=== PATIENT | male | born 1970 | race Caucasian/White ===

== ENCOUNTER 2016-10-08 07:05 | Observation (INO) | payer MEDICARE ==
[~2016-10-08] VITALS: Ht 175.3 cm; Wt 154.9 kg
[~2016-10-08 07:05] MED LIST: ACYC400T PO; AMOX500C2 PO; ANTI14DR4 OT; ASP81CT PO; ASP81TEC; CARV3.12; CYCL10TA9 PO; DULO60CA6 PO; FLUO20CA42 PO; FLUO40CA; FLUO40CA12 PO; HYDR-34 PO; HYDR-3454 PO; HYDR-3720 PO; HYDR25CA5 PO; IBP800T PO; IBUP800T26 PO; INSU100I10 SQ; INSU100I17 SQ; INSU100V11 SQ; INSU100V16 SQ; ISM30TCR PO; Invega; LIRA0.6P; LISI1TAB10 PO; LISI20TA PO; LNS30CCR PO; LSNP10T PO; LURA80TA PO; MAGN400C PO; METFOR850T PO; METO25TA PO; MTF500T; MTP25TSR PO; MULT-963 PO; NAPR-243 PO; NTR.4SL; OFLO5DRO6 OT; ONDAN4ODT PO; ONDN4T PO; OXYC-12 PO; OXYC-272 PO; PNT40TEC PO; PRD20T PO; Prednisone PO; RISP4TAB34; RSP2T PO; RT-ALBUINH IH; SMV20T PO; TRAM50TA2 PO
--- OUTSIDE RECORDS SUMMARY | 2016-10-08 07:10 | XMS REPORT | Continuity of Care Document ---
Author Author [facility] Address Unknown Phone Unavailable Care Team Providers Care Drawer In [place] Name Role Phone Self, Paco PCP [phone] Source Comments Some departments are not documenting in the electronic medical record. If you do not see the information that you expected, contact Release of Information in the Health Information Management department at [phone] for further assistance in locating additional records.[facility] Active Allergies and Adverse Reactions No Known Allergies Current Medications Prescription Sig. Disp. Refills Start End Date Status Date PROZAC 40 mg capsule Take 40 mg by mouth Active Daily. metformin (GLUCOPHAGE) Take 500 mg by mouth Active 500 mg tablet Twice Daily With Meals. MULTIVITAMIN PO Take by mouth Daily. Active oxycodone/acetaminophen Take 1-2 Tabs by mouth 80 0 04/30/20 Active (PERCOCET) 5/325 mg Every 4 Hours as needed 08 tablet for Pain. docusate (COLACE) 100 mg Take 1 Cap by mouth Twice 60 0 04/30/20 Active capsule Daily. HOLD FOR DIARRHEA 08 Active Problems Problem Noted Date Back pain 04/30/2008 Social History Tobacco Use Types Packs/Day Years Used Date Former Smoker 1.5 Alcohol Use Drinks/Week oz/Week Comments Yes Quit 13 years ago, pack and a half a day Last Filed Vital Signs Vital Sign Reading Time Taken Blood Pressure 134/67 04/30/2008 2:00 PM CDT Pulse 64 04/30/2008 2:00 PM CDT Temperature 37 C (98.6 F) 04/30/2008 2:00 PM CDT Respiratory Rate - - Height 1.727 m (5' 8") 04/29/2008 5:35 PM CDT Weight 131.543 kg (290 lb) 04/29/2008 5:35 PM CDT Body Mass Index 44.1 04/29/2008 5:35 PM CDT Oxygen Saturation 96% 04/30/2008 2:00 PM CDT Plan of Care Health Maintenance Due Date Last Done Comments Physical (Comprehensive) 1977 Exam Pertussis Vaccine 1981 Tetanus Vaccine 1987 Influenza Vaccine 05/11/2016 Results from Last 3 Months Not on file
[2016-10-08] MEDS ORDERED: RT-ALBUTEROL/IPRATROPIUM 3 ML (DUONEB) VIAL INH ONE (07:30)
[2016-10-08 07:59] LABS: BASOPHILS % (AUTO) 0 % (0-10); EOSINOPHILS # (AUTO) 0.1 10^3/uL (0.0-0.3); EOSINOPHILS % (AUTO) 2 % (0-10); LYMPHOCYTES # (AUTO) 1.5 X 10^3 (1.0-4.0); LYMPHOCYTES % (AUTO) 17 % (12-44); MEAN CORPUSCULAR HEMOGLOBIN 29 PG (25-34); MEAN CORPUSCULAR HGB CONC 34 G/DL (32-36); MEAN CORPUSCULAR VOLUME 85 FL (80-99); MEAN PLATELET VOLUME 10.1 FL (7.4-10.4); MONOCYTES # (AUTO) 0.7 X 10^3 (0.0-1.0); MONOCYTES % (AUTO) 8 % (0-12); NEUTROPHILS # (AUTO) 6.5 X 10^3 (1.8-7.8); NEUTROPHILS % (AUTO) 74 % (42-75); PLATELET COUNT 172 10^3/uL (130-400); RED BLOOD COUNT 5.62 10^6/uL (4.35-5.85); WHITE BLOOD COUNT 8.8 10^3/uL (4.3-11.0)
--- NOTE | 2016-10-08 08:20 | ED Cough/URI ---
General Chief Complaint: Cough/Cold/Flu Symptoms Stated Complaint: COUGH/CHEST PAIN/SOA Nursing Triage Note: PT REPORTS HE WAS SEEN AT URGENT CARE 3 DAYS AGO FOR URI AND COUGH AND WAS PRESCRIBED TESSALON PEARLES, AUGMENTIN, AND PREDNISONE. HE REPORTS COUGH IS NOT GETTING BETTER AND IS NOW NON PRODUCTIVE. HE STATES HE HAS TREVINO AND RIB PAIN FROM COUGHING SO MUCH. Source: patient, family Exam Limitations: no limitations History of Present Illness Time seen by provider: 08:16 Initial Comments The patient is a 46-year-old white male with multiple medical morbidities. He has had a severe cough for for 5 days. Is not clear about whether there is been any fever. Over the last 2 days he has had paroxysms of coughing with some sputum production. These have left his belly sore and him breathless. He reports becoming very breathless after and during one of these spells. He feels wheezy and tight. Timing/Duration: week, getting worse Severity/Quality: severe, productive cough Allergies and Home Medications Allergies Coded Allergies: RAPHAELANo Known Allergies (Verified Allergy, Unknown, 10/10/05) Home Medications 10 MG TAB #30 0 PO UD 50mg daily for 2 days 40mg daily for 2 days 30mg daily for 2 days 20mg daily for 2 days 10mg daily for 2 days then stop Prescribed by: GENOVEVA WEST on 01/17/15 0932 Acyclovir 400 Mg Tablet #35 400 MG PO UD 5 times daily Prescribed by: OSMAN JUÁREZ on 04/12/16 1141 Albuterol Sulfate 1 Puff Puff #1 2 PUFF IH Q4H PRN PRN SHORTNESS OF BREATH MDI Prescribed by: GENOVEVA WEST on 01/17/15 0932 Amoxicillin 500 Mg Capsule #40 1,000 MG PO BID Prescribed by: OSMAN JUÁREZ on 04/12/16 1141 Hctz/Lisinopril 1 Tab Tablet 20-25 MG PO DAILY (Reported) Ibuprofen 800 Mg Tablet 800 MG PO q8h PRN PRN PAIN (Reported) Insulin Aspart 100 Unit/1 Ml Insuln.pen 25 UNIT SQ AC (Reported) CAN NOT LOCATE FILLED Insulin Glargine,Hum.rec.anlog 300 Unit/3 Ml Insuln.pen 80 UNITS SQ BID ( Reported) Metformin Hcl 850 Mg Tablet 850 MG PO AC (Reported) CAN NOT LOCATE FILLED Multivitamin 1 Each Tablet 1 TAB PO DAILY (Reported) Oxycodone Hcl/Acetaminophen 1 Tab Tablet 1 TAB PO Q6H PRN PRN PAIN (Reported) Prednisone 20 Mg Tab #14 40 MG PO DAILY Prescribed by: OSMAN JUÁREZ on 04/12/16 1141 Constitutional: fever malaise EENTM: no symptoms reported Respiratory: see HPI cough dyspnea on exertion phlegm short of breath wheezing Cardiovascular: no symptoms reported Gastrointestinal: no symptoms reported Genitourinary: no symptoms reported Musculoskeletal: no symptoms reported Skin: no symptoms reported Psychiatric/Neurological: No Symptoms Reported Hematologic/Lymphatic: No Symptoms Reported Past Qhcrrex-Ccnihi-Ifbtxd Hx Patient Social History Alcohol Use: Denies Use Recreational Drug Use: No Smoking Status: Never a Smoker Former Smoker/When Quit: Sep 10, 1993 Recent Foreign Travel: No Contact w/Someone Who Travel: No Recent Infectious Disease Expo: No Recent Hopitalizations: No Physical Abuse Screen: No Sexual Abuse: No Immunizations Up To Date Tetanus Booster (TDap): Unknown PED Vaccines UTD: No Seasonal Allergies Seasonal Allergies: No Surgeries HX Surgeries: Yes (PANCREAS STENT-HAS BEEN REMOVED) Surgeries: Gallbladder, Orthopedic, Tonsillectomy Respiratory Hx Respiratory Disorders: No Cardiovascular Hx Cardiac Disorders: Yes Cardiac Disorders: High Cholesterol, Hypertension Neurological Hx Neurological Disorders: No Reproductive System Hx Reproductive Disorders: No Genitourinary Hx Genitourinary Disorders: No Gastrointestinal Hx Gastrointestinal Disorders: Yes Gastrointestinal Disorders: Gall Bladder Disease Musculoskeletal Hx Musculoskeletal Disorders: Yes (BOTH KNEES) Musculoskeletal Disorders: Arthritis Endocrine Hx Endocrine Disorders: Yes Endocrine Disorders: Diabetes, Insulin dep HEENT HX ENT Disorders: No Loss of Vision: Denies Cancer Hx Cancer: No Psychosocial Hx Psychiatric Problems: Yes Behavioral Health Disorders: Schizophrenia, Depression Integumentary HX Skin/Integumentary Disorder: No Blood Transfusions Hx Blood Disorders: No Family Medical History Significant Family History: No Pertinent Family Hx Family Medial History: Alzheimer's disease 19 MOTHER Arthritis 19 FATHER Cardiovascular disease 19 FATHER Dementia 19 MOTHER Hypertension 19 FATHER Myocardial infarction G8 BROTHER Parkinson's disease 19 MOTHER Prostate cancer 19 FATHER No Family History of: AIDS Abdominal aortic aneurysm [place]'s disease Alcoholism Aphasia Asthma Cancer of mouth Cataracts Colon cancer Completed stroke Congenital disease Congenital heart disease Coronary thrombosis Cystic fibrosis Deafness or hearing loss Diabetes mellitus Drug abuse Dysphasia Fibrocystic disease of breast Gastroenteritis Glaucoma Headache disorder Hypercholesterolemia Infertility Kidney disease Neoplasm Not obtainable due to adoption Osteoporosis Psychosocial problem Respiratory disorder Seizure disorder Severe allergy Thyroid disease Tuberculosis Visual disorder Physical Exam Vital Signs Vital Sign - Last 12Hours 10/08/16 08:31 O2 Flow Rate 2 Capillary Refill : Less Than 3 Seconds General Appearance: moderate distress Eyes: Bilateral Eye Normal Inspection HEENT: pharyngeal erythema Neck: full range of motion Respiratory: decreased breath sounds wheezing (bilateral bases) Cardiovascular: normal peripheral pulses regular rate, rhythm no edema no gallop no JVD no murmur Gastrointestinal: other (belly is huge) Extremities: pedal edema Neurologic/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7 G/DL Lymphocytes # (Auto) 1.5 1.0-4.0 X 10^3 Lymphocytes (%) (Auto) 17 12-44 % Mean Corpuscular Hemoglobin 29 25-34 PG Mean Corpuscular Hemoglobin Concent 34 32-36 G/DL Mean Corpuscular Volume 85 80-99 FL Mean Platelet Volume 10.1 7.4-10.4 FL Monocytes # (Auto) 0.7 0.0-1.0 X 10^3 Monocytes (%) (Auto) 8 0-12 % Neutrophils # (Auto) 6.5 1.8-7.8 X 10^3 Neutrophils (%) (Auto) 74 42-75 % Platelet Count 172 130-400 10^3/uL Red Blood Count 5.62 4.35-5.85 10^6/uL Red Cell Distribution Width 14.0 10.0-14.5 % White Blood Count 8.8 4.3-11.0 10^3/uL Micro Results Microbiology 10/08/16 Influenza Types A,B Antigen (BECKIE) - Final, Complete My Orders Orders-LEA ALDANA MD Albuterol/Ipra Inhalation Soln (Duoneb I (10/08/16 07:30) Cbc With Automated Diff (10/08/16 07:19) Chest 1 View, Ap/Pa Only (10/08/16 07:19) Svn Sm Volume Nebulizer Rt-Rfs (10/08/16 07:19) Influenza A And B Antigens (10/08/16 07:44) Saline Lock/Iv-Start (10/08/16 07:55) Rt Request For Service (10/08/16 08:14) Methylprednisolone Sod Succ (Solu-Medrol (10/08/16 08:30) Albuterol Pre-Mix Nebs (Rt) (Proventil P (10/08/16 08:23) Medications Given in ED Current Medications Medications Dose Ordered Sig/Shadia Route Start Time Stop Time Status Last Admin Dose Admin Albuterol Sulfate 2.5 mg STK-MED ONCE .ROUTE 10/08/16 08:23 10/08/16 08:24 DC 10/08/16 08:29 10 MG Albuterol/ Ipratropium 3 ml ONCE ONCE INH 10/08/16 07:30 10/08/16 07:31 DC 10/08/16 07:30 3 ML Methylprednisolone Sodium Succinate 125 mg ONCE ONCE IVP 10/08/16 08:30 10/08/16 08:31 DC 10/08/16 08:43 125 MG Vital Signs/I&O Vital Sign - Last 12Hours 10/08/16 10/08/16 10/08/16 10/08/16 07:17 07:17 07:39 08:31 Temp 99.0 Pulse 91 Resp 20 B/P 173/122 Pulse Ox 92 90 95 O2 Delivery Room Air Room Air Room Air Nasal Cannula O2 Flow Rate 2 Blood Pressure Mean: 139 Departure Communication Progress Notes 0935 the patient reports that he feels slightly better however on auscultation there is still continued wheezing throughout and a prolonged expiratory phase. [address] Gonzales the patient will be admitted for continuing pulmonary toilet and medications. Cosleep Impression Impression: Primary Impression: URI/bronchospasm Disposition: ADMITTED INPATIENT Condition: Stable/Unchanged Decision to Admit/Date: Oct 08, 2016 Time/Decision to Admit Time: 09:43 Departure-Patient Inst. Referrals: NO,LOCAL PHYSICIAN (PCP/Family) Primary Care Physician LEA ALDANA MD Oct 08, 2016 08:20
[2016-10-08] MEDS ORDERED: RT-ALBUTEROL SULF 2.5 MG/3 ML PRE-MIX VIAL ONE (08:23)
[2016-10-08] MEDS ORDERED: RT-ALBUTEROL SULF 2.5 MG/3 ML PRE-MIX VIAL INH SCH (08:30)
[2016-10-08] MEDS ORDERED: RT-ALBUTEROL SULF 2.5 MG/3 ML PRE-MIX VIAL INH ONE (08:30)
[2016-10-08] MEDS ORDERED: methylPREDNISolone 125 MG (Solu-MEDROL) VIAL IVP ONE (08:30)
--- NOTE | 2016-10-08 08:33 | Diagnostic Imaging Report ---
INDICATION: Cough, chest pain, shortness of air. TECHNIQUE: Single view chest 7:59 AM. CORRELATION STUDY: 04/12/2016 FINDINGS: Heart size enlarged. Vasculature slightly prominent. Lungs overall relatively stable and clear. IMPRESSION: 1. Stable chest. Cardiac enlargement without failure. Dictated by: Dictated on workstation # [id number]
[2016-10-08] MEDS ORDERED: CATHETER FLUSH 10 ML SYR IV PRN (10:45)
[2016-10-08] MEDS: cefTRIAXone 1 GM/NS 50 ML IVPB IV SCH ×2 (10:47)
[2016-10-08] MEDS: NS IV 1000 ML 1,000 ML IV SCH ×2 (10:48→20:30)
[2016-10-08] MEDS ORDERED: AMOX1TAB11 PO (10:59)
[2016-10-08] MEDS ORDERED: PRD20T PO (10:59)
[2016-10-08] MEDS ORDERED: BENZ200C51 PO (10:59)
[2016-10-08] MEDS ORDERED: FLU TRIvalent (5 YOA+) 2016-17 (AFLURIA) 0.5 ML IM ONE (11:45)
[2016-10-08] MEDS ORDERED: RT-ALBUTEROL/IPRATROPIUM 3 ML (DUONEB) VIAL INH NR (11:45)
[2016-10-08] MEDS ORDERED: oxyCODONE/APAP 10/325MG (PERCOCET 10) TABLET PO PRN (12:15)
[2016-10-08] MEDS ORDERED: inSUlin DETERMIR 1 UNIT/0.01 ML (LEVEMIR) CHARGE PER UNIT SQ NR (12:15)
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
[2016-10-08] MEDS: RT-ALBUTEROL/IPRATROPIUM 3 ML (DUONEB) VIAL INH SCH ×3 (14:26→21:49)
[2016-10-08] MEDS: methylPREDNISolone 125 MG (Solu-MEDROL) VIAL IVP SCH ×2 (14:48→20:29)
[2016-10-08] MEDS: ENOXAPARIN 40 MG/0.4 ML (LOVENOX) SYR SC SCH (14:50)
[2016-10-08] MEDS ORDERED: methylPREDNISolone 125 MG (Solu-MEDROL) VIAL IVP SCH (15:00)
[2016-10-08] MEDS ORDERED: LISI40TA PO (15:05)
[2016-10-08] MEDS ORDERED: FURO-124 PO ×2 (15:05)
[2016-10-08] MEDS ORDERED: ASPI-999 PO (15:05)
[2016-10-08] MEDS ORDERED: AMLO5TAB2 PO (15:05)
[2016-10-08] MEDS ORDERED: POTA10TA10 PO (15:09)
[2016-10-08] MEDS: inSUlin ASPART (NovoLOG) 1 UNIT/0.01 ML (CHARGE PER UNIT) SC SCH ×3 (16:16→21:06)
[2016-10-08 16:41] VITALS: BP 152/79
[2016-10-08] MEDS ORDERED: BENZONATATE 100 MG (TESSALON) CAPSULE PO PRN (16:45)
[2016-10-08] MEDS: RT-BUDESONIDE NEBS 0.5 MG/2ML (PULMICORT) AMP INH SCH (18:06)
[2016-10-08 19:48] VITALS: BP 153/83
[2016-10-08] MEDS ORDERED: inSUlin DETERMIR 1 UNIT/0.01 ML (LEVEMIR) CHARGE PER UNIT SQ SCH (21:00)
[2016-10-08 23:38] VITALS: BP 168/77
[2016-10-09] MEDS: RT-ALBUTEROL/IPRATROPIUM 3 ML (DUONEB) VIAL INH SCH (02:42)
[2016-10-09] MEDS: methylPREDNISolone 125 MG (Solu-MEDROL) VIAL IVP SCH (03:33)
[2016-10-09 03:56] VITALS: BP 137/75
[2016-10-09] MEDS: inSUlin ASPART (NovoLOG) 1 UNIT/0.01 ML (CHARGE PER UNIT) SC SCH ×4 (06:26→12:07)
[2016-10-09] MEDS: NS IV 1000 ML 1,000 ML IV SCH (06:27)
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
[2016-10-09] MEDS ORDERED: MULTIVIT W/MINERALS TAB (THERAGRAN M) PO SCH (07:00)
[2016-10-09] MEDS ORDERED: cefTRIAXone 1 GM (ROCEPHIN) VIAL ONE (07:34)
[2016-10-09] MEDS ORDERED: NORMAL SALINE (BAXTER MINI) 50 ML IV ONE (07:34)
[2016-10-09 08:00] VITALS: BP 161/69
[2016-10-09] MEDS ORDERED: predniSONE 10 MG TAB PO SCH (09:00)
[2016-10-09] MEDS ORDERED: RT-ALBUTEROL/IPRATROPIUM 3 ML (DUONEB) VIAL INH SCH (09:00)
[2016-10-09] MEDS ORDERED: amLODIPine 5 MG (NORVASC) TAB PO SCH (09:00)
[2016-10-09] MEDS ORDERED: NON-FORMULARY MEDICATION 1 EA EA (Multivitamin (Multi-Vitamin Daily) 1 TAB) PO SCH (09:00)
[2016-10-09] MEDS: cefTRIAXone 1 GM/NS 50 ML IVPB IV SCH ×2 (09:13)
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
[2016-10-09] MEDS ORDERED: PRED10TA22 PO (09:15)
--- NOTE | 2016-10-09 09:16 | Discharge Instructions ---
Discharge Instructions Discharge Medications New, Converted or Re-Newed RX: Transmitted to Pharmacy New Medications: Prednisone (Prednisone) 10 Mg Tab.ds.pk 10 MG PO DAILY Take 6 tabs(60mg)daily,decrease by 1 tab(10mg)every other day. # 42 PKG Continued Medications: Albuterol Sulfate (Ventolin Hfa) 1 Puff Puff 2 PUFF IH Q4H MDI PRN SHORTNESS OF BREATH #1 Ref 0 PUFF Amlodipine Besylate (Amlodipine Besylate) 5 Mg Tablet 5 MG PO DAILY TAB Amoxicillin/Potassium Clav (Amox Tr-K Clv 500-125 mg Tab) 1 Each Tablet 1 EACH PO Q12H TAKE FOR 10 DAYS, STARTED 10/06/16 TAB Aspirin (Aspirin) 81 Mg Tab.chew 81 MG PO DAILY TAB Benzonatate (Benzonatate) 200 Mg Capsule 200 MG PO TID CAP Furosemide (Lasix) 40 Mg Tablet 40 MG PO DAILY TAB Furosemide (Lasix) 40 Mg Tablet 20 MG PO DAILY 1600 TAB Ibuprofen (Ibuprofen) 800 Mg Tablet 800 MG PO q8h PRN PAIN TAB Insulin Aspart (Novolog) 100 Unit/1 Ml Insuln.pen 25 UNIT SQ AC Insulin Glargine,Hum.rec.anlog (Lantus Solostar) 300 Unit/3 Ml Insuln.pen 100 UNITS SQ BID Lisinopril (Lisinopril) 40 Mg Tablet 40 MG PO DAILY TAB Metformin Hcl (Metformin 850 Mg) 850 Mg Tablet 850 MG PO AC CAN NOT LOCATE FILLED Multivitamin (Multi-Vitamin Daily) 1 Each Tablet 1 TAB PO DAILY Potassium Chloride (Potassium Chloride) 10 Meq Tablet.er 10 MEQ PO DAILY TAB Discontinued Medications: Prednisone (Prednisone) 20 Mg Tab 20 MG PO TAKE 3 TABS DAILY FOR 3 DAYS THEN 2 TABS DAILY FOR 3 DAYS THEN 1 TABE DAILY FOR 3 DAYS, WAS STARTED ON 10/05/16 TAB Patient Instructions Goal/Follow Up Appt: Dr Geller in [place], [place] this week Dr Snow for sleep study Activity & Diet Discharge Diet: ADA Diet Activity as Tolerated: Yes ROBIN ROGEL DO Oct 09, 2016 09:16
[2016-10-09] MEDS: RT-BUDESONIDE NEBS 0.5 MG/2ML (PULMICORT) AMP INH SCH (09:58)
[2016-10-09] MEDS: ENOXAPARIN 40 MG/0.4 ML (LOVENOX) SYR SC SCH (11:52)
[2016-10-09 13:00] VITALS: BP 161/69
== END 2016-10-09 09:15 | disposition home or self-care (01) ==
LOC: EDUNIT# 07:05 → ER 07:07 → UNDOADMOB 09:45 → 4TH 09:45 → UNDODISOB 10-09 13:00
PROVIDERS: ADMIT Internal Medicine; ATTEND Internal Medicine
DX: J45.902 Unspecified asthma with status asthmaticus (principal); J44.1 Chronic obstructive pulmonary disease with (acute) exacerbation; G47.33 Obstructive sleep apnea (adult) (pediatric); E66.01 Morbid (severe) obesity due to excess calories; I10 Essential (primary) hypertension; E78.5 Hyperlipidemia, unspecified; F20.9 Schizophrenia, unspecified; E11.65 Type 2 diabetes mellitus with hyperglycemia; I25.10 Atherosclerotic heart disease of native coronary artery without angina pectoris; K21.9 Gastro-esophageal reflux disease without esophagitis; Z79.4 Long term (current) use of insulin; Z87.891 Personal history of nicotine dependence
CPT/HCPCS: 36415; 71010; 82962; 83036; 85025; 87804; 94640; 94664; 94760; 94761; 96374; G0378

== ENCOUNTER → 2016-11-01 | Outpatient (CLI) | payer MEDICARE ==
[~2016-11-01] MED LIST changes: +AMLO5TAB2 PO; +AMOX1TAB11 PO; +ASPI-999 PO; +BENZ200C51 PO; +FURO-124 PO; +LISI40TA PO; +POTA10TA10 PO; +PRED10TA22 PO
--- OUTSIDE RECORDS SUMMARY | 2016-11-01 15:21 | XMS REPORT | Continuity of Care Document ---
Author Author [facility] Organization [facility] Address Unknown Phone Unavailable Care Team Providers Care Home Theater Specialist Name Role Phone Self, Paco PCP [phone] Source Comments Some departments are not documenting in the electronic medical record. If you do not see the information that you expected, contact Release of Information in the Health Information Management department at [phone] for further assistance in locating additional records.[facility] Active Allergies and Adverse Reactions No Known [...]
== END ==
LOC: RT 15:18
PROVIDERS: ATTEND Nurse Practitioner Family
DX: J45.909 Unspecified asthma, uncomplicated (principal); R06.02 Shortness of breath
CPT/HCPCS: 94060; 94729

== ENCOUNTER 2016-11-03 19:50 | Outpatient (CLI) | payer MEDICARE ==
--- OUTSIDE RECORDS SUMMARY | 2016-11-03 20:01 | XMS REPORT | Continuity of Care Document ---
Author Author [facility] Organization [facility] Address Unknown Phone Unavailable Care Team Providers Care Developmental Behavioral Physician Name Role Phone Self, Paco PCP [phone] Source Comments Some departments are not documenting in the electronic medical record. If you do not see the information that you expected, contact Release of Information in the Health Information Management department at [phone] for further assistance in locating additional records.[facility] Active Allergies and Adverse Reactions No Known [...]
== END 2016-11-04 06:25 | disposition home or self-care (01) ==
LOC: SLEEP 19:50
PROVIDERS: ATTEND Nurse Practitioner Family
DX: G47.34 Idiopathic sleep related nonobstructive alveolar hypoventilation (principal); G47.33 Obstructive sleep apnea (adult) (pediatric)
CPT/HCPCS: 95811

== ENCOUNTER 2017-09-24 13:21 | Emergency (ER) | payer MEDICARE, MEDICAID ==
[~2017-09-24] VITALS: Ht 177.8 cm; Wt 159.2 kg
--- OUTSIDE RECORDS SUMMARY | 2017-09-24 13:25 | XMS REPORT | Clinical Summary ---
Author Author [facility] Organization [facility] Address Unknown Phone Unavailable Care Team Providers Care [place] Hydraulic Press Operator Name Role Phone PCP Unavailable Source Comments Some departments are not documenting in the electronic medical record. If you do not see the information that you expected, contact Release of Information in the Health Information Management department at [phone] for further assistance in locating additional records.[facility] Allergies No Known Allergies Current Medications Prescription Sig. [...] Problems Problem Noted Date Back pain 04/30/2008 Family History Medical History Relation Name Comments Hypertension Father Diabetes Maternal Grandmother Cancer Paternal Grandmother Relation Name Status Comments Father Maternal Grandmother Paternal Grandmother Social History Tobacco Use Types Packs/Day Years Used Date Former Smoker 1.5 Alcohol Use Drinks/Week oz/Week Comments Yes Quit 13 years ago, pack and a half a day Sex Assigned at Date Recorded Not on file Last Filed Vital Signs Vital Sign Reading Time Taken Blood Pressure 134/67 04/30/2008 2:00 PM CDT Pulse 64 04/30/2008 2:00 PM CDT Temperature 37 C (98.6 F) 04/30/2008 2:00 PM CDT Respiratory Rate - - Oxygen Saturation 96% 04/30/2008 2:00 PM CDT Inhaled Oxygen - - Concentration Weight 131.5 kg (290 lb) 04/29/2008 5:35 PM CDT Height 172.7 cm (5' 8") 04/29/2008 5:35 PM CDT Body Mass Index 44.09 04/29/2008 5:35 PM CDT Plan of Treatment Health Maintenance Due Date Last Done Comments PHYSICAL (COMPREHENSIVE) 1977 EXAM PERTUSSIS VACCINE 1981 TETANUS VACCINE 1987 INFLUENZA VACCINE 04/10/2017 Results Not on filefrom Last 3 Months
--- OUTSIDE RECORDS SUMMARY | 2017-09-24 13:27 | XMS REPORT | Continuity of Care Document ---
Author Author [facility] Address Unknown Phone Unavailable Allergies Active Description Code Type Severity Reaction Onset Reported/Identified Relationship to Patient Clinical Status Yes NKANo Known Allergies NKA Miscellaneous Allergy Unknown N/A 10/10/2005 Yes metformin Drug Allergy 06/14/2010 Yes metformin Drug Allergy N/A N/A 06/14/2010 Medications There is no data. Problems Date Dx Coded Attending Type Code Diagnosis Diagnosed By 02/02/2010 Ot 250.00 02/02/2010 Ot 278.01 02/02/2010 Ot 300.4 02/02/2010 Ot 327.23 02/02/2010 Ot 401.0 02/02/2010 Ot 577.1 02/02/2010 Ot 786.59 02/02/2010 Ot V15.81 02/02/2010 Ot V85.4 02/04/2010 Ot 250.00 02/04/2010 Ot 272.4 02/04/2010 Ot 278.01 02/04/2010 Ot 401.9 02/04/2010 Ot 786.50 02/04/2010 Ot V58.66 02/04/2010 Ot V58.69 05/03/2010 RIOS NUÑEZ MD 250.00 DIABETES MELLITUS TYPE 2 05/03/2010 JOAQUIN QURESHI, RIOS 401.9 HYPERTENSION, UNSPECIFIED ESSENTIAL 05/03/2010 RIOS NUÑEZ MD 250.00 DIABETES MELLITUS TYPE 2 05/03/2010 RIOS NUÑEZ MD 401.9 HYPERTENSION, UNSPECIFIED ESSENTIAL 05/03/2010 RIOS NUÑEZ MD 250.00 DIABETES MELLITUS TYPE 2 05/03/2010 RIOS NÑUEZ MD 401.9 HYPERTENSION, UNSPECIFIED ESSENTIAL 05/03/2010 250.00 DIABETES MELLITUS TYPE 2 05/03/2010 401.9 HYPERTENSION, UNSPECIFIED ESSENTIAL 05/03/2010 250.00 DIABETES MELLITUS TYPE 2 05/03/2010 401.9 HYPERTENSION, UNSPECIFIED ESSENTIAL 05/03/2010 250.00 DIABETES MELLITUS TYPE 2 05/03/2010 401.9 HYPERTENSION, UNSPECIFIED ESSENTIAL 05/03/2010 250.00 DIABETES MELLITUS TYPE 2 05/03/2010 401.9 HYPERTENSION, UNSPECIFIED ESSENTIAL 05/03/2010 250.00 DIABETES MELLITUS TYPE 2 05/03/2010 401.9 HYPERTENSION, UNSPECIFIED ESSENTIAL 05/03/2010 250.00 DIABETES MELLITUS TYPE 2 05/03/2010 401.9 HYPERTENSION, UNSPECIFIED ESSENTIAL 05/03/2010 250.00 DIABETES MELLITUS TYPE 2 05/03/2010 401.9 HYPERTENSION, UNSPECIFIED ESSENTIAL 05/03/2010 250.00 DIABETES MELLITUS TYPE 2 05/03/2010 401.9 HYPERTENSION, UNSPECIFIED ESSENTIAL 05/03/2010 250.00 DIABETES MELLITUS TYPE 2 05/03/2010 401.9 HYPERTENSION, UNSPECIFIED ESSENTIAL 05/03/2010 250.00 DIABETES MELLITUS TYPE 2 05/03/2010 401.9 HYPERTENSION, UNSPECIFIED ESSENTIAL 05/03/2010 250.00 DIABETES MELLITUS TYPE 2 05/03/2010 401.9 HYPERTENSION, UNSPECIFIED ESSENTIAL 05/03/2010 SIVAKUMAR LAUREN DO 250.00 DIABETES MELLITUS TYPE 2 05/03/2010 SIVAKUMAR LAUREN DO 401.9 HYPERTENSION, UNSPECIFIED ESSENTIAL 05/23/2010 RIOS NUÑEZ MD 789.00 ABDOMINAL PAIN UNSPECIFIED SITE 05/23/2010 RIOS NUÑEZ MD 789.00 ABDOMINAL PAIN UNSPECIFIED SITE 05/23/2010 RIOS NUÑEZ MD 789.00 ABDOMINAL PAIN UNSPECIFIED SITE 05/23/2010 789.00 ABDOMINAL PAIN UNSPECIFIED SITE 05/23/2010 789.00 ABDOMINAL PAIN UNSPECIFIED SITE 05/23/2010 789.00 ABDOMINAL PAIN UNSPECIFIED SITE 05/23/2010 789.00 ABDOMINAL PAIN UNSPECIFIED SITE 05/23/2010 789.00 ABDOMINAL PAIN UNSPECIFIED SITE 05/23/2010 789.00 ABDOMINAL PAIN UNSPECIFIED SITE 05/23/2010 789.00 ABDOMINAL PAIN UNSPECIFIED SITE 05/23/2010 789.00 ABDOMINAL PAIN UNSPECIFIED SITE 05/23/2010 789.00 ABDOMINAL PAIN UNSPECIFIED SITE 05/23/2010 789.00 ABDOMINAL PAIN UNSPECIFIED SITE 05/23/2010 789.00 ABDOMINAL PAIN UNSPECIFIED SITE 05/23/2010 SIVAKUMAR LAUREN DO 789.00 ABDOMINAL PAIN UNSPECIFIED SITE 06/14/2010 RIOS UNÑEZ MD 250.02 DIABETES II UNCONTROLLED 06/14/2010 RIOS NUÑEZ MD 716.90 ARTHRITIS/ ARTHROPATHY, UNSPECIFIED 06/14/2010 JOAQUIN QURESHI, RIOS 250.02 DIABETES II UNCONTROLLED 06/14/2010 JOAQUIN QURESHI, RIOS 716.90 ARTHRITIS/ ARTHROPATHY, UNSPECIFIED 06/14/2010 JOAQUIN QURESHI, RIOS 250.02 DIABETES II UNCONTROLLED 06/14/2010 JOAQUIN QURESHI, RIOS 716.90 ARTHRITIS/ ARTHROPATHY, UNSPECIFIED 06/14/2010 250.02 DIABETES II UNCONTROLLED 06/14/2010 716.90 ARTHRITIS/ ARTHROPATHY, UNSPECIFIED 06/14/2010 250.02 DIABETES II UNCONTROLLED 06/14/2010 716.90 ARTHRITIS/ ARTHROPATHY, UNSPECIFIED 06/14/2010 250.02 DIABETES II UNCONTROLLED 06/14/2010 716.90 ARTHRITIS/ ARTHROPATHY, UNSPECIFIED 06/14/2010 250.02 DIABETES II UNCONTROLLED 06/14/2010 716.90 ARTHRITIS/ ARTHROPATHY, UNSPECIFIED 06/14/2010 250.02 DIABETES II UNCONTROLLED 06/14/2010 716.90 ARTHRITIS/ ARTHROPATHY, UNSPECIFIED 06/14/2010 250.02 DIABETES II UNCONTROLLED 06/14/2010 716.90 ARTHRITIS/ ARTHROPATHY, UNSPECIFIED 06/14/2010 250.02 DIABETES II UNCONTROLLED 06/14/2010 716.90 ARTHRITIS/ ARTHROPATHY, UNSPECIFIED 06/14/2010 250.02 DIABETES II UNCONTROLLED 06/14/2010 716.90 ARTHRITIS/ ARTHROPATHY, UNSPECIFIED 06/14/2010 250.02 DIABETES II UNCONTROLLED 06/14/2010 716.90 ARTHRITIS/ ARTHROPATHY, UNSPECIFIED 06/14/2010 250.02 DIABETES II UNCONTROLLED 06/14/2010 716.90 ARTHRITIS/ ARTHROPATHY, UNSPECIFIED 06/14/2010 250.02 DIABETES II UNCONTROLLED 06/14/2010 716.90 ARTHRITIS/ ARTHROPATHY, UNSPECIFIED 06/14/2010 SIVAKUMAR LAUREN DO 250.02 DIABETES II UNCONTROLLED 06/14/2010 LAUREN SIVAKUMAR DAVIS 716.90 ARTHRITIS/ ARTHROPATHY, UNSPECIFIED 06/16/2010 Ot 836.2 06/16/2010 Ot 959.7 06/16/2010 Ot E000.8 06/16/2010 Ot E849.0 06/16/2010 Ot E885.9 11/29/2010 RIOS NUÑEZ MD 466.0 ACUTE BRONCHITIS 11/29/2010 RIOS NUÑEZ MD 790.6 OTHER ABNORMAL BLOOD CHEMISTRY 11/29/2010 RIOS NUÑEZ MD 466.0 ACUTE BRONCHITIS 11/29/2010 RIOS NUÑEZ MD 790.6 OTHER ABNORMAL BLOOD CHEMISTRY 11/29/2010 RIOS NUÑEZ MD 466.0 ACUTE BRONCHITIS 11/29/2010 RIOS NUÑEZ MD 790.6 OTHER ABNORMAL BLOOD CHEMISTRY 11/29/2010 466.0 ACUTE BRONCHITIS 11/29/2010 790.6 OTHER ABNORMAL BLOOD CHEMISTRY 11/29/2010 466.0 ACUTE BRONCHITIS 11/29/2010 790.6 OTHER ABNORMAL BLOOD CHEMISTRY 11/29/2010 466.0 ACUTE BRONCHITIS 11/29/2010 790.6 OTHER ABNORMAL BLOOD CHEMISTRY 11/29/2010 466.0 ACUTE BRONCHITIS 11/29/2010 790.6 OTHER ABNORMAL BLOOD CHEMISTRY 11/29/2010 466.0 ACUTE BRONCHITIS 11/29/2010 790.6 OTHER ABNORMAL BLOOD CHEMISTRY 11/29/2010 466.0 ACUTE BRONCHITIS 11/29/2010 790.6 OTHER ABNORMAL BLOOD CHEMISTRY 11/29/2010 466.0 ACUTE BRONCHITIS 11/29/2010 790.6 OTHER ABNORMAL BLOOD CHEMISTRY 11/29/2010 466.0 ACUTE BRONCHITIS 11/29/2010 790.6 OTHER ABNORMAL BLOOD CHEMISTRY 11/29/2010 466.0 ACUTE BRONCHITIS 11/29/2010 790.6 OTHER ABNORMAL BLOOD CHEMISTRY 11/29/2010 466.0 ACUTE BRONCHITIS 11/29/2010 790.6 OTHER ABNORMAL BLOOD CHEMISTRY 11/29/2010 466.0 ACUTE BRONCHITIS 11/29/2010 790.6 OTHER ABNORMAL BLOOD CHEMISTRY 11/29/2010 SIVAKUMAR LAUREN DO K 466.0 ACUTE BRONCHITIS 11/29/2010 SIVAKUMAR LAUREN DO K 790.6 OTHER ABNORMAL BLOOD CHEMISTRY 02/16/2011 Ot 577.0 ACUTE PANCREATITIS 02/16/2011 Ot 789.01 ABDOMINAL PAIN, RIGHT UPPER QUADRANT 06/07/2011 Ot 250.00 DIAB DAILY WO COMPL, TYPE II OR UNSPEC TY 06/07/2011 Ot 577.0 ACUTE PANCREATITIS 06/07/2011 Ot 789.01 ABDOMINAL PAIN, RIGHT UPPER QUADRANT 06/07/2011 Ot V58.67 LONG-TERM ( 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 08/21/2011 Ot 780.2 SYNCOPE AND COLLAPSE 08/21/2011 Ot 789.00 ABDOMINAL PAIN, UNSPECIFIED SITE 02/24/2012 Ot 250.00 DIAB DAILY WO COMPL, TYPE II OR UNSPEC TY 02/24/2012 Ot 305.93 DRUG ABUSE NEC-IN REMISS 02/24/2012 Ot 311 DEPRESSIVE DISORDER NEC 02/24/2012 Ot 397.0 TRICUSPID VALVE DISEASE 02/24/2012 Ot 424.0 MITRAL VALVE DISORDER 02/24/2012 Ot 733.6 TIETZE'S DISEASE 02/24/2012 Ot 786.59 CHEST PAIN NEC 02/24/2012 Ot V15.82 HISTORY OF TOBACCO USE 02/24/2012 Ot V17.49 FAMILY HISTORY OF OTHER CARDIOVASCULAR D 02/24/2012 Ot V58.67 LONG-TERM ( 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 02/24/2012 Ot V58.69 OTH MED,LT, CURRENT USE 03/17/2012 Ot 250.92 DIAB W UNSPEC COMPL, TYPE II OR UNSPEC T 03/17/2012 Ot 305.00 ALCOHOL ABUSE-UNSPEC 03/17/2012 Ot 311 DEPRESSIVE DISORDER NEC 03/17/2012 Ot 401.9 HYPERTENSION NOS 03/17/2012 Ot V15.81 HX OF PAST NONCOMPLIANCE 05/15/2012 Ot 250.02 DIAB DAILY WO COMPL, TYPE II OR UNSPEC TY 05/15/2012 Ot 401.9 HYPERTENSION NOS 05/15/2012 Ot 786.50 CHEST PAIN NOS 06/07/2012 Ot 250.00 DIAB DAILY WO COMPL, TYPE II OR UNSPEC TY 06/07/2012 Ot 278.01 MORBID OBESITY 06/07/2012 Ot 401.9 HYPERTENSION NOS 06/07/2012 Ot 560.1 PARALYTIC ILEUS 06/07/2012 Ot 577.1 CHRONIC PANCREATITIS 06/07/2012 Ot V58.67 LONG-TERM ( 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 06/07/2012 Ot V85.43 BODY MASS INDEX 50.0-59.9, ADULT 06/10/2012 Ot 275.2 DIS MAGNESIUM METABOLISM 06/10/2012 Ot 729.82 CRAMP IN LIMB 06/10/2012 Ot 789.02 ABDOMINAL PAIN, LEFT UPPER QUADRANT 06/25/2012 Ot 250.00 DIAB DAILY WO COMPL, TYPE II OR UNSPEC TY 06/25/2012 Ot 311 DEPRESSIVE DISORDER NEC 06/25/2012 Ot 401.9 HYPERTENSION NOS 06/25/2012 Ot 965.8 POIS-ANALGES/ ANTIPYR NEC 06/25/2012 Ot E950.0 SUICIDE- ANALGESICS 06/25/2012 Ot V12.79 PERSONAL HISTORY OTH SPEC DIGESTIVE SYST 06/25/2012 Ot V58.67 LONG-TERM ( 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 09/12/2012 Ot 787.03 VOMITING ALONE 09/12/2012 Ot 789.06 ABDOMINAL PAIN, EPIGASTRIC 10/15/2012 JOAQUIN QURESHI, RIOS 250.92 DIABETES WITH UNSPECIFIED COMPLICATION TYPE II OR UNSPECIFIED TYPE UNCONTROLLED 10/15/2012 RIOS NUÑEZ MD 278.01 MORBID OBESITY 10/15/2012 RIOS NUÑEZ MD 295.90 UNSPECIFIED TYPE SCHIZOPHRENIA UNSPECIFIED STATE 10/15/2012 RIOS NUÑEZ MD 577.0 ACUTE PANCREATITIS 10/15/2012 JOAQUIN QURESHI, RIOS 250.92 DIABETES WITH UNSPECIFIED COMPLICATION TYPE II OR UNSPECIFIED TYPE UNCONTROLLED 10/15/2012 RIOS NUÑEZ MD 278.01 MORBID OBESITY 10/15/2012 RIOS NUÑEZ MD 295.90 UNSPECIFIED TYPE SCHIZOPHRENIA UNSPECIFIED STATE 10/15/2012 RIOS NUÑEZ MD 577.0 ACUTE PANCREATITIS 10/15/2012 RIOS NUÑEZ MD 250.92 DIABETES WITH UNSPECIFIED COMPLICATION TYPE II OR UNSPECIFIED TYPE UNCONTROLLED 10/15/2012 RIOS NUÑEZ MD 278.01 MORBID OBESITY 10/15/2012 RIOS NUÑEZ MD 295.90 UNSPECIFIED TYPE SCHIZOPHRENIA UNSPECIFIED STATE 10/15/2012 RIOS NUÑEZ MD 577.0 ACUTE PANCREATITIS 10/15/2012 250.92 DIABETES WITH UNSPECIFIED COMPLICATION TYPE II OR UNSPECIFIED TYPE UNCONTROLLED 10/15/2012 278.01 MORBID OBESITY 10/15/2012 295.90 UNSPECIFIED TYPE SCHIZOPHRENIA UNSPECIFIED STATE 10/15/2012 577.0 ACUTE PANCREATITIS 10/15/2012 250.92 DIABETES WITH UNSPECIFIED COMPLICATION TYPE II OR UNSPECIFIED TYPE UNCONTROLLED 10/15/2012 278.01 MORBID OBESITY 10/15/2012 295.90 UNSPECIFIED TYPE SCHIZOPHRENIA UNSPECIFIED STATE 10/15/2012 577.0 ACUTE PANCREATITIS 10/15/2012 250.92 DIABETES WITH UNSPECIFIED COMPLICATION TYPE II OR UNSPECIFIED TYPE UNCONTROLLED 10/15/2012 278.01 MORBID OBESITY 10/15/2012 295.90 UNSPECIFIED TYPE SCHIZOPHRENIA UNSPECIFIED STATE 10/15/2012 577.0 ACUTE PANCREATITIS 10/15/2012 250.92 DIABETES WITH UNSPECIFIED COMPLICATION TYPE II OR UNSPECIFIED TYPE UNCONTROLLED 10/15/2012 278.01 MORBID OBESITY 10/15/2012 295.90 UNSPECIFIED TYPE SCHIZOPHRENIA UNSPECIFIED STATE 10/15/2012 577.0 ACUTE PANCREATITIS 10/15/2012 250.92 DIABETES WITH UNSPECIFIED COMPLICATION TYPE II OR UNSPECIFIED TYPE UNCONTROLLED 10/15/2012 278.01 MORBID OBESITY 10/15/2012 295.90 UNSPECIFIED TYPE SCHIZOPHRENIA UNSPECIFIED STATE 10/15/2012 577.0 ACUTE PANCREATITIS 10/15/2012 250.92 DIABETES WITH UNSPECIFIED COMPLICATION TYPE II OR UNSPECIFIED TYPE UNCONTROLLED 10/15/2012 278.01 MORBID OBESITY 10/15/2012 295.90 UNSPECIFIED TYPE SCHIZOPHRENIA UNSPECIFIED STATE 10/15/2012 577.0 ACUTE PANCREATITIS 10/15/2012 250.92 DIABETES WITH UNSPECIFIED COMPLICATION TYPE II OR UNSPECIFIED TYPE UNCONTROLLED 10/15/2012 278.01 MORBID OBESITY 10/15/2012 295.90 UNSPECIFIED TYPE SCHIZOPHRENIA UNSPECIFIED STATE 10/15/2012 577.0 ACUTE PANCREATITIS 10/15/2012 250.92 DIABETES WITH UNSPECIFIED COMPLICATION TYPE II OR UNSPECIFIED TYPE UNCONTROLLED 10/15/2012 278.01 MORBID OBESITY 10/15/2012 295.90 UNSPECIFIED TYPE SCHIZOPHRENIA UNSPECIFIED STATE 10/15/2012 577.0 ACUTE PANCREATITIS 10/15/2012 250.92 DIABETES WITH UNSPECIFIED COMPLICATION TYPE II OR UNSPECIFIED TYPE UNCONTROLLED 10/15/2012 278.01 MORBID OBESITY 10/15/2012 295.90 UNSPECIFIED TYPE SCHIZOPHRENIA UNSPECIFIED STATE 10/15/2012 577.0 ACUTE PANCREATITIS 10/15/2012 250.92 DIABETES WITH UNSPECIFIED COMPLICATION TYPE II OR UNSPECIFIED TYPE UNCONTROLLED 10/15/2012 278.01 MORBID OBESITY 10/15/2012 295.90 UNSPECIFIED TYPE SCHIZOPHRENIA UNSPECIFIED STATE 10/15/2012 577.0 ACUTE PANCREATITIS 10/15/2012 250.92 DIABETES WITH UNSPECIFIED COMPLICATION TYPE II OR UNSPECIFIED TYPE UNCONTROLLED 10/15/2012 278.01 MORBID OBESITY 10/15/2012 295.90 UNSPECIFIED TYPE SCHIZOPHRENIA UNSPECIFIED STATE 10/15/2012 577.0 ACUTE PANCREATITIS 10/15/2012 SIVAKUMAR LAUREN DO 250.92 DIABETES WITH UNSPECIFIED COMPLICATION TYPE II OR UNSPECIFIED TYPE UNCONTROLLED 10/15/2012 SIVAKUMAR LAUREN DO 278.01 MORBID OBESITY 10/15/2012 SIVAKUMAR LAUREN DO 295.90 UNSPECIFIED TYPE SCHIZOPHRENIA UNSPECIFIED STATE 10/15/2012 SIVAKUMAR LAUREN DO 577.0 ACUTE PANCREATITIS 11/07/2012 JOAQUIN QURESHI, RIOS V67.9 UNSPECIFIED FOLLOW-UP EXAMINATION 11/07/2012 JOAQUIN QURESHI, RIOS V67.9 UNSPECIFIED FOLLOW-UP EXAMINATION 11/07/2012 V67.9 UNSPECIFIED FOLLOW-UP EXAMINATION 11/07/2012 V67.9 UNSPECIFIED FOLLOW-UP EXAMINATION 11/07/2012 V67.9 UNSPECIFIED FOLLOW-UP EXAMINATION 11/07/2012 V67.9 UNSPECIFIED FOLLOW-UP EXAMINATION 11/07/2012 V67.9 UNSPECIFIED FOLLOW-UP EXAMINATION 11/07/2012 V67.9 UNSPECIFIED FOLLOW-UP EXAMINATION 11/07/2012 V67.9 UNSPECIFIED FOLLOW-UP EXAMINATION 11/07/2012 V67.9 UNSPECIFIED FOLLOW-UP EXAMINATION 11/07/2012 V67.9 UNSPECIFIED FOLLOW-UP EXAMINATION 11/07/2012 V67.9 UNSPECIFIED FOLLOW-UP EXAMINATION 11/07/2012 V67.9 UNSPECIFIED FOLLOW-UP EXAMINATION 11/07/2012 SIVAKUMAR LAUREN DO V67.9 UNSPECIFIED FOLLOW-UP EXAMINATION 12/24/2012 V65.3 COUNSELING- OBESITY (DIET) 12/24/2012 V65.3 COUNSELING- OBESITY (DIET) 12/24/2012 V65.3 COUNSELING- OBESITY (DIET) 12/24/2012 V65.3 COUNSELING- OBESITY (DIET) 12/24/2012 V65.3 COUNSELING- OBESITY (DIET) 12/24/2012 V65.3 COUNSELING- OBESITY (DIET) 12/24/2012 V65.3 COUNSELING- OBESITY (DIET) 12/24/2012 V65.3 COUNSELING- OBESITY (DIET) 12/24/2012 V65.3 COUNSELING- OBESITY (DIET) 12/24/2012 V65.3 COUNSELING- OBESITY (DIET) 12/24/2012 V65.3 COUNSELING- OBESITY (DIET) 12/24/2012 SIVAKUMAR LAUREN DO V65.3 COUNSELING- OBESITY (DIET) 12/25/2012 789.06 abdominal pain in the central upper belly (epigastric) 12/25/2012 789.06 abdominal pain in the central upper belly (epigastric) 12/25/2012 789.06 abdominal pain in the central upper belly (epigastric) 12/25/2012 789.06 abdominal pain in the central upper belly (epigastric) 12/25/2012 789.06 abdominal pain in the central upper belly (epigastric) 12/25/2012 789.06 abdominal pain in the central upper belly (epigastric) 12/25/2012 789.06 abdominal pain in the central upper belly (epigastric) 12/25/2012 789.06 abdominal pain in the central upper belly (epigastric) 12/25/2012 789.06 abdominal pain in the central upper belly (epigastric) 12/25/2012 789.06 abdominal pain in the central upper belly (epigastric) 12/25/2012 789.06 abdominal pain in the central upper belly (epigastric) 12/25/2012 SIVAKUMAR LAUREN DO 789.06 abdominal pain in the central upper belly (epigastric) 12/26/2012 311 DEPRESSIVE DISORDER NOT ELSEWHERE CLASSIFIED 12/26/2012 311 DEPRESSIVE DISORDER NOT ELSEWHERE CLASSIFIED 12/26/2012 311 DEPRESSIVE DISORDER NOT ELSEWHERE CLASSIFIED 12/26/2012 311 DEPRESSIVE DISORDER NOT ELSEWHERE CLASSIFIED 12/26/2012 311 DEPRESSIVE DISORDER NOT ELSEWHERE CLASSIFIED 12/26/2012 311 DEPRESSIVE DISORDER NOT ELSEWHERE CLASSIFIED 12/26/2012 311 DEPRESSIVE DISORDER NOT ELSEWHERE CLASSIFIED 12/26/2012 311 DEPRESSIVE DISORDER NOT ELSEWHERE CLASSIFIED 12/26/2012 311 DEPRESSIVE DISORDER NOT ELSEWHERE CLASSIFIED 12/26/2012 311 DEPRESSIVE DISORDER NOT ELSEWHERE CLASSIFIED 12/26/2012 SIVAKUMAR LAUREN DO 311 DEPRESSIVE DISORDER NOT ELSEWHERE CLASSIFIED 12/31/2012 308.3 OTHER ACUTE REACTIONS TO STRESS 12/31/2012 308.3 OTHER ACUTE REACTIONS TO STRESS 12/31/2012 308.3 OTHER ACUTE REACTIONS TO STRESS 12/31/2012 308.3 OTHER ACUTE REACTIONS TO STRESS 12/31/2012 308.3 OTHER ACUTE REACTIONS TO STRESS 12/31/2012 308.3 OTHER ACUTE REACTIONS TO STRESS 12/31/2012 308.3 OTHER ACUTE REACTIONS TO STRESS 12/31/2012 308.3 OTHER ACUTE REACTIONS TO STRESS 12/31/2012 308.3 OTHER ACUTE REACTIONS TO STRESS 12/31/2012 SIVAKUMAR LAUREN DO 308.3 OTHER ACUTE REACTIONS TO STRESS 01/16/2013 717.7 CHONDROMALACIA OF [place] 01/16/2013 717.7 CHONDROMALACIA OF [place] 01/16/2013 717.7 CHONDROMALACIA OF [place] 01/16/2013 717.7 CHONDROMALACIA OF [place] 01/16/2013 717.7 CHONDROMALACIA OF [place] 01/16/2013 717.7 CHONDROMALACIA OF [place] 01/16/2013 717.7 CHONDROMALACIA OF [place] 01/16/2013 SIVAKUMAR LAUREN DO K 717.7 CHONDROMALACIA OF [place] 01/22/2013 ANGEL NORMAN MD Ot 250.00 DIAB DAILY WO COMPL, TYPE II OR UNSPEC TY 01/22/2013 ANGEL NORMAN MD Ot 311 DEPRESSIVE DISORDER NEC 01/22/2013 ANGEL NORMAN MD Ot 401.9 HYPERTENSION NOS 01/22/2013 ANGEL NORMAN MD Ot 530.11 REFLUX ESOPHAGITIS 01/22/2013 ANGEL NORMAN MD Ot 577.1 CHRONIC PANCREATITIS 01/22/2013 ANGEL NORMAN MD Ot 786.50 CHEST PAIN NOS 01/22/2013 ANGEL NORMAN MD Ot V15.81 HX OF PAST NONCOMPLIANCE 02/11/2013 SHANE LEE MD Ot 250.00 DIAB DAILY WO COMPL, TYPE II OR UNSPEC TY 02/11/2013 SHANE LEE MD Ot 298.9 PSYCHOSIS NOS 02/11/2013 SHANE LEE MD Ot V58.67 LONG-TERM (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 02/11/2013 SHANE LEE MD Ot V58.69 OTH MED,LT,CURRENT USE 03/06/2013 401.1 BENIGN ESSENTIAL HYPERTENSION 03/06/2013 401.1 BENIGN ESSENTIAL HYPERTENSION 03/06/2013 401.1 BENIGN ESSENTIAL HYPERTENSION 03/06/2013 LEONIDAS DAVIS SIVAKUMAR Vivek 401.1 BENIGN ESSENTIAL HYPERTENSION 12/06/2013 LEA ALDANA MD Ot 250.02 DIAB DAILY WO COMPL, TYPE II OR UNSPEC TY 12/06/2013 LEA ALDANA MD Ot 789.00 ABDOMINAL PAIN, UNSPECIFIED SITE 03/14/2014 EMILY WOO MD Ot 272.0 PURE HYPERCHOLESTEROLEM 03/14/2014 EMILY WOO MD Ot 278.00 OBESITY, NOS 03/14/2014 EMILY WOO MD Ot 295.90 SCHIZOPHRENIA NOS-UNSPEC 03/14/2014 EMILY WOO MD Ot 311 DEPRESSIVE DISORDER NEC 03/14/2014 EMILY WOO MD Ot 401.9 HYPERTENSION NOS 03/14/2014 EMILY WOO MD Ot 577.0 ACUTE PANCREATITIS 03/14/2014 EMILY WOO MD Ot 577.1 CHRONIC PANCREATITIS 03/14/2014 EMILY WOO MD Ot 786.50 CHEST PAIN NOS 03/14/2014 EMILY WOO MD Ot V58.66 LONG-TERM (CURRENT) USE OF ASPIRIN 03/14/2014 EMILY WOO MD Ot V58.67 LONG-TERM (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 03/14/2014 EMILY WOO MD Ot V58.69 OTH MED,LT,CURRENT USE 03/14/2014 EMILY WOO MD Ot V85.43 BODY MASS INDEX 50.0-59.9, ADULT 10/28/2014 Ot 250.00 DIAB DAILY WO COMPL, TYPE II OR UNSPEC TY 10/28/2014 Ot 923.03 CONTUSION OF UPPER ARM 10/28/2014 Ot 959.2 SHLDR/UPPER ARM INJ NOS 10/28/2014 Ot E000.8 OTHER EXTERNAL CAUSE STATUS 10/28/2014 Ot E885.9 FALL FROM SLIPPING, TRIPPING, OR STUMBLI 10/28/2014 Ot V15.81 HX OF PAST NONCOMPLIANCE 10/28/2014 Ot V58.67 LONG-TERM ( 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 10/29/2014 DONAL TAYLOR MD Ot 571.8 10/29/2014 DONAL TAYLOR MD Ot 789.1 10/29/2014 DONAL TAYLOR MD Ot 789.2 12/27/2014 GILBERT GALARZA Ot 388.70 OTALGIA NOS 12/27/2014 GILBERT GALARZA Ot 910.0 ABRASION HEAD 12/27/2014 GILBERT GALARZA Ot E000.8 OTHER EXTERNAL CAUSE STATUS 12/27/2014 GILBERT GALARZA Ot E915 FB ENTERING OTH ORIFICE 01/14/2015 DONAL TAYLOR MD Ot 571.8 01/14/2015 DONAL TAYLOR MD Ot 789.1 01/14/2015 DONAL TAYLOR MD Ot 789.2 01/14/2015 DONAL TAYLOR MD Ot 571.8 01/14/2015 DONAL TAYLOR MD Ot 789.1 01/14/2015 DONAL TAYLOR MD Ot 789.2 01/17/2015 BOUCHRA MEDRANO MD Ot 250.02 DIAB DAILY WO COMPL, TYPE II OR UNSPEC TY 01/17/2015 BOUCHRA MEDRANO MD Ot 272.0 PURE HYPERCHOLESTEROLEM 01/17/2015 BOUCHRA MEDRANO MD Ot 401.9 HYPERTENSION NOS 01/17/2015 BOUCHRA MEDRANO MD Ot 493.90 ASTHMA, UNSPECIFIED 01/17/2015 BOUCHRA MEDRANO MD Ot 799.02 HYPOXEMIA 01/17/2015 BOUCHRA MEDRANO MD Ot V15.82 HISTORY OF TOBACCO USE 01/17/2015 BOUCHRA MEDRANO MD Ot V58.67 LONG-TERM (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 01/23/2015 BOUCHRA MEDRANO MD Ot 250.02 01/23/2015 BOUCHRA MEDRANO MD Ot 272.0 01/23/2015 BOUCHRA MEDRANO MD, Ot 401.9 01/23/2015 BOUCHRA MEDRANO MD Ot 493.90 01/23/2015 BOUCHRA MEDRANO MD Ot 799.02 01/23/2015 BOUCHRA MEDRANO MD Ot V15.82 01/23/2015 BOUCHRA MEDRANO MD Ot V58.67 01/23/2015 BOUCHRA MEDRANO MD Ot 250.02 01/23/2015 BOUCHRA MEDRANO MD Ot 272.0 01/23/2015 BOUCHRA MEDRANO MD Ot 401.9 01/23/2015 BOUCHRA MEDRANO MD Ot 493.90 01/23/2015 BOUCHRA MEDRANO MD Ot 799.02 01/23/2015 BOUCHRA MEDRANO MD Ot V15.82 01/23/2015 BOUCHRA MEDRANO MD Ot V58.67 03/03/2015 BRANDON QURESHI, DONAL Payne Ot 571.8 03/03/2015 BRANDON QURESHI, DONAL Payne Ot 789.1 03/03/2015 BRANDON QURESHI, DONAL Payne Ot 789.2 05/03/2015 BRANDON QURESHI, DONAL Payne Ot 571.8 05/03/2015 BRANDON QURESHI, DONAL Payne Ot 789.1 05/03/2015 BRANDON QURESHI, DONAL Payne Ot 789.2 04/12/2016 OSMAN MOSLEY MD Ot E11.65 TYPE 2 DIABETES MELLITUS WITH HYPERGLYCE 04/12/2016 OSMAN MOSLEY MD Ot F15.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 ABUSE, UNCOMPLICATED 04/12/2016 OSMAN MOSLEY MD Ot F20.9 SCHIZOPHRENIA, UNSPECIFIED 04/12/2016 OSMAN MOSLEY MD Ot H66.92 OTITIS MEDIA, UNSPECIFIED, LEFT EAR 04/12/2016 OSMAN MOSLEY MD Ot M54.2 CERVICALGIA 04/12/2016 OSMAN MOSLEY MD Ot R07.89 OTHER CHEST PAIN 04/12/2016 OSMAN MOSLEY MD Ot R20.0 ANESTHESIA OF SKIN 04/12/2016 OSMAN MOSLEY MD Ot R29.810 FACIAL WEAKNESS 04/12/2016 OSMAN MOSLEY MD Ot 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 (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 04/12/2016 OSMAN MOSLEY MD Ot Z79.899 OTHER SENIOR CARE (CURRENT) DRUG THERAPY 04/12/2016 BRANDON QURESHI, DONAL Payne Ot 571.8 CHRONIC LIVER DIS NEC 04/12/2016 DONAL TAYLOR MD Ot 789.1 HEPATOMEGALY 04/12/2016 DONAL TAYLOR MD Ot 789.2 SPLENOMEGALY 04/13/2016 OSMAN MOSLEY MD Ot E11.65 TYPE 2 DIABETES MELLITUS WITH HYPERGLYCE 04/13/2016 OSMAN MOSLEY MD Ot F15.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 ABUSE, UNCOMPLICATED 04/13/2016 OSMAN MOSLEY MD Ot F20.9 SCHIZOPHRENIA, UNSPECIFIED 04/13/2016 OSMAN MOSLEY MD Ot H66.92 OTITIS MEDIA, UNSPECIFIED, LEFT EAR 04/13/2016 OSMAN MOSLEY MD Ot M54.2 CERVICALGIA 04/13/2016 OSMAN MOSLEY MD Ot R07.89 OTHER CHEST PAIN 04/13/2016 OSMAN MOSLEY MD T Ot R20.0 ANESTHESIA OF SKIN 04/13/2016 OSMAN MOSLEY MD Ot R29.810 FACIAL WEAKNESS 04/13/2016 OSMAN MOSLEY MD Ot Z79.4 SENIOR CARE (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 04/13/2016 OSMAN MOSLEY MD Ot Z79.899 OTHER SENIOR CARE (CURRENT) DRUG THERAPY 04/29/2016 OSMAN MOSLEY MD Ot E11.65 TYPE 2 DIABETES MELLITUS WITH HYPERGLYCE 04/29/2016 OSMAN MOSLEY MD Ot F15.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 ABUSE, UNCOMPLICATED 04/29/2016 OSMAN MOSLEY MD Ot F20.9 SCHIZOPHRENIA, UNSPECIFIED 04/29/2016 OSMAN MOSLEY MD Ot H66.92 OTITIS MEDIA, UNSPECIFIED, LEFT EAR 04/29/2016 OSMAN MOSLEY MD Ot M54.2 CERVICALGIA 04/29/2016 OSMAN MOSLEY MD Ot R07.89 OTHER CHEST PAIN 04/29/2016 OSMAN MOSLEY MD Ot R20.0 ANESTHESIA OF SKIN 04/29/2016 OSMAN MOSLEY MD Ot R29.810 FACIAL WEAKNESS 04/29/2016 OSMAN MOSLEY MD Ot 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 MAINTAINER (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 04/29/2016 OSMAN MOSLEY MD Ot Z79.899 OTHER TICKER MAINTAINER (CURRENT) DRUG THERAPY 10/08/2016 DONAL TAYLOR MD Ot 571.8 CHRONIC LIVER DIS NEC 10/08/2016 DONAL TAYLOR MD Ot 789.1 HEPATOMEGALY 10/08/2016 DONAL TAYLOR MD Ot 789.2 SPLENOMEGALY 10/09/2016 ROBIN ROGEL DO Ot E11.65 TYPE 2 DIABETES MELLITUS WITH HYPERGLYCE 10/09/2016 ROBIN ROGEL DO Ot E66.01 MORBID (SEVERE) OBESITY DUE TO EXCESS CA 10/09/2016 ROBIN ROGEL DO Ot E78.5 HYPERLIPIDEMIA, UNSPECIFIED 10/09/2016 ROBIN ROGEL DO Ot F20.9 SCHIZOPHRENIA, UNSPECIFIED 10/09/2016 ROBIN ROGEL DO Ot G47.33 OBSTRUCTIVE SLEEP APNEA (ADULT) (PEDIATR 10/09/2016 ROBIN ROGEL DO Ot I10 ESSENTIAL (PRIMARY) HYPERTENSION 10/09/2016 ROBIN ROGEL DO Ot I25.10 ATHSCL HEART DISEASE OF [place] CORONARY 10/09/2016 ROBIN ROGEL DO Ot J44.1 CHRONIC OBSTRUCTIVE PULMONARY DISEASE W 10/09/2016 ROBIN ROGEL DO Ot J45.902 UNSPECIFIED ASTHMA WITH STATUS ASTHMATIC 10/09/2016 ROBIN ROGEL DO Ot K21.9 GASTRO-ESOPHAGEAL REFLUX DISEASE WITHOUT 10/09/2016 ROBIN ROGEL DO Ot Z79.4 SENIOR CARE (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 10/09/2016 ROBIN ROGEL DO Ot Z87.891 PERSONAL HISTORY OF NICOTINE DEPENDENCE 11/04/2016 EDUIN FLOREZ APRN Ot G47.33 OBSTRUCTIVE SLEEP APNEA (ADULT) (PEDIATR 11/04/2016 EDUIN FLOREZ APRN Ot G47.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 ALVEOL 11/06/2016 EDUIN FLOREZ APRN Ot G47.33 OBSTRUCTIVE SLEEP APNEA (ADULT) (PEDIATR 11/06/2016 EDUIN FLOREZ APRN Ot G47.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 ALVEOL 11/06/2016 EDUIN FLOREZ APRN Ot G47.33 OBSTRUCTIVE SLEEP APNEA (ADULT) (PEDIATR 11/06/2016 EDUIN FLOREZ APRN Ot G47.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 ALVEOL 11/22/2016 EDUIN FLOREZ APRN Ot J45.909 UNSPECIFIED ASTHMA, UNCOMPLICATED 11/22/2016 EDUIN FLOREZ APRN Ot R06.02 SHORTNESS OF BREATH Procedures Code Description [place] [id number] GLUCOSE FINGER STICK 10/15/2012 [id number] A1C (IN-HOUSE) 10/15/2012 [id number] ROUTINE VENIPUNCTURE 11/07/2012 73578 CBC 11/07/2012 74047 CMP 11/07/2012 [id number] GFR CALC (RESULT ONLY) 11/07/2012 49536 AMYLASE 11/07/2012 33550 LIPASE 11/07/2012 62928 ROUTINE VENIPUNCTURE 12/25/2012 37141 UA LONG DIP 12/25/2012 31731 CBC 12/25/2012 50114 CMP 12/25/2012 [id number] GFR CALC (RESULT ONLY) 12/25/2012 30377 AMYLASE 12/25/2012 92713 LIPASE 12/25/2012 58200 ROUTINE VENIPUNCTURE 01/09/2013 88194 CBC 01/09/2013 09731 CMP 01/09/20134119365 GFR CALC (RESULT ONLY) 01/09/2013 91251 AMYLASE 01/09/2013 91012 LIPASE 01/09/2013 13813 US ABDOMINAL ULTRASOUND, COMPLETE 01/10/2013 99333 XRAY KNEE RIGHT 1 OR 2 VIEWS 01/16/2013 Jamil Covarrubias 01/30/2013 58363 A1C (IN-HOUSE) 02/06/2013 35216 JOINT INJECTION- LARGE JOINT (SPECIFY MEDCIN DESCRIPTION) 03/27/2013 [facility] Souza 06/02/2013 Results Test Result Range Capillary blood glucose measurement by glucometer (mass/volume) - 04/12/16 09: 00 Capillary blood glucose measurement by glucometer (mass/volume) 439 mg/dL 70-110 Complete blood count (CBC) with automated white blood cell (WBC) differential - 04/12/16 09:04 Blood leukocytes automated count (number/volume) 8.7 10*3/uL 4.3-11.0 Blood erythrocytes automated count (number/volume) 4.71 10*6/uL 4.35-5.85 Venous blood hemoglobin measurement (mass/volume) 13.8 g/dL 13.3-17.7 Blood hematocrit (volume fraction) 41 % 40-54 Automated erythrocyte mean corpuscular volume 87 [foz_us] 80-99 Automated erythrocyte mean corpuscular hemoglobin (mass per erythrocyte) 29 pg 25-34 Automated erythrocyte mean corpuscular hemoglobin concentration measurement ( mass/volume) 34 g/dL 32-36 Automated erythrocyte distribution width ratio 14.4 % 10.0-14.5 Automated blood platelet count (count/volume) 174 10*3/uL 130-400 Automated blood platelet mean volume measurement 10.2 [foz_us] 7.4-10.4 Automated blood neutrophils/100 leukocytes 69 % 42-75 Automated blood lymphocytes/100 leukocytes 20 % 12-44 Blood monocytes/100 leukocytes 8 % 0-12 Automated blood eosinophils/100 leukocytes 2 % 0-10 Automated blood basophils/100 leukocytes 1 % 0-10 Blood neutrophils automated count (number/volume) 6.0 10*3 1.8-7.8 Blood lymphocytes automated count (number/volume) 1.8 10*3 1.0-4.0 Blood monocytes automated count (number/volume) 0.7 10*3 0.0-1.0 Automated eosinophil count 0.2 10*3/uL 0.0-0.3 Automated blood basophil count (count/volume) 0.1 10*3/uL 0.0-0.1 PT panel in platelet poor plasma by coagulation assay - 04/12/16 09:04 Prothrombin time (PT) in platelet poor plasma by coagulation assay 13.9 s 12.2-14.7 INR in platelet poor plasma or blood by coagulation assay 1.1 0.8-1.4 Activated partial thromboplastin time (aPTT) in platelet poor plasma bycoagulation assay - 04/12/16 09:04 Activated partial thromboplastin time (aPTT) in platelet poor plasma bycoagulation assay 29 s 24-35 Fibrin D-dimer FEU measurement in platelet poor plasma (mass/volume) - 09:04 Fibrin D-dimer FEU measurement in platelet poor plasma (mass/volume) < ug/mL 0.00-0.49 Comprehensive metabolic panel - 04/12/16 09:04 Serum or plasma sodium measurement (moles/volume) 133 mmol/L 135-145 Serum or plasma potassium measurement (moles/volume) 3.9 mmol/L 3.6-5.0 Serum or plasma chloride measurement (moles/volume) 98 mmol/L 98-107 Carbon dioxide 25 mmol/L 21-32 Serum or plasma anion gap determination (moles/volume) 10 mmol/L 5-14 Serum or plasma urea nitrogen measurement (mass/volume) 9 mg/dL 7-18 Serum or plasma creatinine measurement (mass/volume) 0.83 mg/dL 0.60-1.30 Serum or plasma urea nitrogen/creatinine mass ratio 11 NRG Serum or plasma creatinine measurement with calculation of estimated glomerular filtration rate > NRG Serum or plasma glucose measurement (mass/volume) 528 mg/dL 70-105 Serum or plasma calcium measurement (mass/volume) 8.9 mg/dL 8.5-10.1 Serum or plasma total bilirubin measurement (mass/volume) 0.7 mg/dL 0.1-1.0 Serum or plasma alkaline phosphatase measurement (enzymatic activity/volume) 114 U/L 40-136 Serum or plasma aspartate aminotransferase measurement (enzymatic activity/ volume) 47 U/L 5-34 Serum or plasma alanine aminotransferase measurement (enzymatic activity/volume ) 64 U/L 0-55 Serum or plasma protein measurement (mass/volume) 6.3 g/dL 6.4-8.2 Serum or plasma albumin measurement (mass/volume) 3.5 g/dL 3.2-4.5 Serum or plasma troponin i.cardiac measurement (mass/volume) - 04/12/16 09:04 Serum or plasma troponin i.cardiac measurement (mass/volume) < ng/ mL <0.30 Complete urinalysis with reflex to culture - 04/12/16 09:45 Urine color determination YELLOW NRG Urine clarity determination CLEAR NRG Urine pH measurement by test strip 6 5-9 Specific gravity of urine by test strip 1.010 1.016- 1.022 Urine protein assay by test strip, semi-quantitative NEGATIVE NEGATIVE Urine glucose detection by automated test strip 4+ NEGATIVE Erythrocytes detection in urine sediment by light microscopy NEGATIVE NEGATIVE Urine ketones detection by automated test strip NEGATIVE NEGATIVE Urine nitrite detection by test strip NEGATIVE NEGATIVE Urine total bilirubin detection by test strip NEGATIVE NEGATIVE Urine urobilinogen measurement by automated test strip (mass/volume) NORMAL NORMAL Urine leukocyte esterase detection by dipstick NEGATIVE NEGATIVE Automated urine sediment erythrocyte count by microscopy (number/high power field) NONE NRG Automated urine sediment leukocyte count by microscopy (number/high power field ) RARE NRG Bacteria detection in urine sediment by light microscopy NEGATIVE NRG Squamous epithelial cells detection in urine sediment by light microscopy 2-5 NRG Crystals detection in urine sediment by light microscopy NONE NRG Casts detection in urine sediment by light microscopy NONE NRG Mucus detection in urine sediment by light microscopy NEGATIVE NRG Complete urinalysis with reflex to culture NO NRG Urine drug screening test - 04/12/16 09:45 Urine acetaminophen detection by screening method NEGATIVE NEGATIVE Urine phencyclidine detection by screening method NEGATIVE NEGATIVE Urine benzodiazepines detection by screening method NEGATIVE NEGATIVE Urine cocaine detection NEGATIVE NEGATIVE Urine amphetamines detection by screening method POSITIVE NEGATIVE Urine methamphetamine detection by screening method POSITIVE NEGATIVE Urine cannabinoids detection by screening method NEGATIVE NEGATIVE Urine opiates detection by screening method NEGATIVE NEGATIVE Urine barbiturates detection NEGATIVE NEGATIVE Screening urine tricyclic antidepressants detection NEGATIVE NEGATIVE Urine methadone detection by screening method NEGATIVE NEGATIVE Capillary blood glucose measurement by glucometer (mass/volume) - 04/12/16 10: 40 Capillary blood glucose measurement by glucometer (mass/volume) 431 mg/dL 70-110 Capillary blood glucose measurement by glucometer (mass/volume) - 04/12/16 11: 51 Capillary blood glucose measurement by glucometer (mass/volume) 360 mg/dL 70-110 Capillary blood glucose measurement by glucometer (mass/volume) - 04/12/16 12: 21 Capillary blood glucose measurement by glucometer (mass/volume) 340 mg/dL 70-110 Hemoglobin A1c - 10/08/16 07:44 Hemoglobin A1c 13.6 % 4.5-6.2 Complete blood count (CBC) with automated white blood cell (WBC) differential - 10/08/16 07:49 Blood leukocytes automated count (number/volume) 8.8 10*3/uL 4.3-11.0 Blood erythrocytes automated count (number/volume) 5.62 10*6/uL 4.35-5.85 Venous blood hemoglobin measurement (mass/volume) 16.3 g/dL 13.3-17.7 Blood hematocrit (volume fraction) 48 % 40-54 Automated erythrocyte mean corpuscular volume 85 [foz_us] 80-99 Automated erythrocyte mean corpuscular hemoglobin (mass per erythrocyte) 29 pg 25-34 Automated erythrocyte mean corpuscular hemoglobin concentration measurement ( mass/volume) 34 g/dL 32-36 Automated erythrocyte distribution width ratio 14.0 % 10.0-14.5 Automated blood platelet count (count/volume) 172 10*3/uL 130-400 Automated blood platelet mean volume measurement 10.1 [foz_us] 7.4-10.4 Automated blood neutrophils/100 leukocytes 74 % 42-75 Automated blood lymphocytes/100 leukocytes 17 % 12-44 Blood monocytes/100 leukocytes 8 % 0-12 Automated blood eosinophils/100 leukocytes 2 % 0-10 Automated blood basophils/100 leukocytes 0 % 0-10 Blood neutrophils automated count (number/volume) 6.5 10*3 1.8-7.8 Blood lymphocytes automated count (number/volume) 1.5 10*3 1.0-4.0 Blood monocytes automated count (number/volume) 0.7 10*3 0.0-1.0 Automated eosinophil count 0.1 10*3/uL 0.0-0.3 Automated blood basophil count (count/volume) 0.0 10*3/uL 0.0-0.1 Influenza virus A and B antigen detection - 10/08/16 07:49 FLU RESULT NEGATIVE FOR INFLUENZA A AND B ANTIGENS BY IA NRG Capillary blood glucose measurement by glucometer (mass/volume) - 10/08/16 15: 39 Capillary blood glucose measurement by glucometer (mass/volume) 484 mg/dL 70-110 Capillary blood glucose measurement by glucometer (mass/volume) - 10/08/16 20: 42 Capillary blood glucose measurement by glucometer (mass/volume) 400 mg/dL 70-110 Capillary blood glucose measurement by glucometer (mass/volume) - 10/09/16 05: 44 Capillary blood glucose measurement by glucometer (mass/volume) 324 mg/dL 70-110 Capillary blood glucose measurement by glucometer (mass/volume) - 10/09/16 11: 16 Capillary blood glucose measurement by glucometer (mass/volume) 301 mg/dL 70-110 Encounters ACCT No. Visit Date/Time Discharge Status Pt. Type Provider Facility Loc./Unit Complaint [id number] 05/29/2013 12:23:00 05/29/2013 23:59:59 CLS Outpatient LEONIDAS SIVAKUMAR DAVIS [id number] 11/28/2012 10:16:00 11/28/2012 23:59:59 CLS Outpatient RIOS NUÑEZ MD [id number] 11/07/2012 08:02:00 11/07/2012 23:59:59 CLS Outpatient RIOS NUÑEZ MD [id number] 10/15/2012 09:34:00 10/15/2012 23:59:59 CLS Outpatient RIOS NUÑEZ MD [id number] 04/15/2013 10:16:00 Document Registration [id number] 03/27/2013 12:19:00 Document Registration [id number] 03/06/2013 09:16:00 Document Registration [id number] 02/27/2013 11:44:00 Document Registration [id number] 02/06/2013 10:50:00 Document Registration [id number] 01/16/2013 14:53:00 Document Registration [id number] 01/09/2013 10:45:00 Document Registration [id number] 12/31/2012 09:51:00 Document Registration [id number] 12/26/2012 07:36:00 Document Registration [id number] 12/25/2012 11:46:00 Document Registration [id number] 12/25/2012 11:46:00 Document Registration [id number] 11/03/2016 19:50:00 11/04/2016 06:25:00 DIS Outpatient EDUIN FLOREZ APRN [facility] SLEEP NOCTURNAL HYPOXIA , OBSTRUCTIVE SLEEP APNEA [id number] 11/01/2016 15:18:00 11/01/2016 23:59:59 CLS Outpatient EDUIN FLOREZ APRN [facility] RT ASTHMA,SOB ON EXERTION [id number] 10/08/2016 09:45:00 10/09/2016 13:00:00 DIS Inpatient ROBIN ROGEL DO [facility] 4TH URI/BRONCHOSPASM [id number] 04/12/2016 08:26:00 04/12/2016 12:31:00 DIS Emergency MELANY QUERSHI, OSMAN Quintanilla [facility] ER LEFT SIDE FACIAL NUMBNESS/DROOPING [id number] 01/15/2015 08:15:00 01/17/2015 13:15:00 DIS Inpatient MARCELA QURESHI, BOUCHRA Gibson [facility] 4TH BRONCHITIS W/HYPOXIA UNCONTROLLED HYPERGLYCEMIA [id number] 12/27/2014 20:52:00 12/27/2014 22:16:00 DIS Emergency GILBERT GALARZA [facility] ER RT EAR PAIN/BLEEDING [id number] 03/14/2014 18:57:00 03/14/2014 21:23:00 DIS Emergency CHILO QURESHI, EMILY Payne [facility] ER UPPER ABD PAIN [id number] 12/06/2013 12:54:00 12/06/2013 16:00:00 DIS Emergency JOVAN QURESHI, LEA Dyole [facility] ER ELEVATED BLOOD SUGAR, PANCREATIC PAIN [id number] 02/11/2013 13:31:00 02/11/2013 17:30:00 DIS Emergency JESUS QURESHI, SHANE Lundberg [facility] ER ELEVATED BLOOD SUGAR [id number] 01/24/2013 08:29:00 01/24/2013 23:59:59 CLS Outpatient BRANDON QURESHI, DONAL Payne [facility] RAD EPIGASTRIC PAIN,HX OF COMPLICATED PANCREATITIS [id number] 01/20/2013 18:38:00 01/22/2013 09:00:00 DIS Outpatient ANGEL NORMAN MD [facility] CATH CHEST PAIN [id number] 09/24/2017 13:22:00 ACT Emergency ANJUM SY MD [facility] ER ABD PAIN [id number] 10/28/2014 19:52:00 Document Registration [id number] 09/12/2012 08:22:00 Document Registration [id number] 06/24/2012 15:58:00 Document Registration [id number] 06/10/2012 10:51:00 Document Registration [id number] 06/05/2012 20:50:00 Document Registration [id number] 05/15/2012 09:28:00 Document Registration [id number] 03/16/2012 23:30:00 Document Registration [id number] 02/22/2012 20:28:00 Document Registration [id number] 08/21/2011 10:18:00 Document Registration [id number] 06/07/2011 18:53:00 Document Registration [id number] 02/16/2011 10:53:00 Document Registration [id number] 06/16/2010 07:33:00 Document Registration [id number] 02/04/2010 18:57:00 Document Registration [id number] 01/31/2010 18:27:00 Document Registration
[2017-09-24] MEDS ORDERED: ONDANSETRON 4 MG/2 ML (SDV) Z0FRAN IVP ONE (13:45)
[2017-09-24] MEDS ORDERED: fentaNYL INJECTION 100 MCG/2 ML AMP IVP PRN (13:45)
[2017-09-24] MEDS ORDERED: NS IV 1000 ML 1,000 ML IV SCH (13:45)
--- NOTE | 2017-09-24 13:45 | ED Abdominal Pain ---
General Chief Complaint: Abdominal/GI Problems Stated Complaint: ABD PAIN Source of Information: Patient Exam Limitations: No Limitations History of Present Illness Time Seen By Provider: 13:43 Initial Comments To ER with reports of right-sided upper abdominal pain for the past 2-3 days. Preceding this was about 2-3 days of diarrhea. He does have nausea without vomiting. No fevers. He has a history of pancreatitis, cholecystectomy, pancreatic stent that was subsequently removed. Also hyperglycemia of the past few days with blood sugars in the 400-500 range despite his regular doses of Lantus and Humalog. Timing/Duration: 2-3 Days Severity/Quality: Severe Location: RUQ Radiation: Back Activities at Onset: None Allergies and Home Medications Allergies Coded Allergies: NKANo Known Allergies (Verified Allergy, Unknown, 10/10/05) Home Medications Albuterol Sulfate 1 Puff Puff, 2 PUFF IH Q4H PRN for SHORTNESS OF BREATH, #1 Ref 0 MDI Prescribed by: GENOVEVA WEST on 01/17/15 0932 Amlodipine Besylate 5 Mg Tablet, 5 MG PO DAILY, (Reported) Amoxicillin/Potassium Clav 1 Each Tablet, 1 EACH PO Q12H, (Reported) TAKE FOR 10 DAYS, STARTED 10/06/16 Aspirin 81 Mg Tab.chew, 81 MG PO DAILY, (Reported) Benzonatate 200 Mg Capsule, 200 MG PO TID, (Reported) Furosemide 40 Mg Tablet, 40 MG PO DAILY, (Reported) Furosemide 40 Mg Tablet, 20 MG PO DAILY 1600, (Reported) Ibuprofen 800 Mg Tablet, 800 MG PO q8h PRN for PAIN, (Reported) Insulin Aspart 100 Unit/1 Ml Insuln.pen, 25 UNIT SQ AC, (Reported) Insulin Glargine,Hum.rec.anlog 300 Unit/3 Ml Insuln.pen, 100 UNITS SQ BID, ( Reported) Lisinopril 40 Mg Tablet, 40 MG PO DAILY, (Reported) Metformin Hcl 850 Mg Tablet, 850 MG PO AC, (Reported) CAN NOT LOCATE FILLED Multivitamin 1 Each Tablet, 1 TAB PO DAILY, (Reported) Potassium Chloride 10 Meq Tablet.er, 10 MEQ PO DAILY, (Reported) Prednisone 10 Mg Tab.ds.pk, 10 MG PO DAILY, #42 Take 6 tabs(60mg)daily,decrease by 1 tab(10mg)every other day. Prescribed by: ROBIN ROGEL on 10/09/16 0915 Review of Systems Constitutional: see HPI, No chills, No fever EENTM: No Symptoms Reported Respiratory: No Symptoms Reported Cardiovascular: No Symptoms Reported Gastrointestinal: See HPI, Abdominal Pain Genitourinary: No Symptoms Reported Musculoskeletal: no symptoms reported Skin: no symptoms reported Psychiatric/Neurological: No Symptoms Reported Endocrine: No Symptoms Reported Hematologic/Lymphatic: No Symptoms Reported Past [id number]-[id number] Hx Patient Social History Former Smoker, Quit: Oct 08, 1996 Recent Foreign Travel: No Contact w/Someone Who Travel: No Recent Hopitalizations: No Immunizations Up To Date Tetanus Booster (TDap): Unknown PED Vaccines UTD: No Date of Pneumonia Vaccine: Oct 08, 2010 Seasonal Allergies Seasonal Allergies: No Surgeries History of Surgeries: Yes (PANCREAS STENT-HAS BEEN REMOVED) Surgeries: Gallbladder, Orthopedic, Tonsillectomy Respiratory History of Respiratory Disorde: No Currently Using BIPAP: No Cardiovascular History of Cardiac Disorders: Yes Cardiac Disorders: Chronic Edema/Swelling, High Cholesterol, Hypertension Neurological History of Neurological Disord: No Reproductive System Hx Reproductive Disorders: No Sexually Transmitted Disease: No HIV/AIDS: No Genitourinary History of Genitourinary Disor: No Gastrointestinal History of Gastrointestinal Di: Yes Gastrointestinal Disorders: Gastroesophageal Reflux, Pancreatitis, Gall Bladder Disease Musculoskeletal History of Musculoskeletal Dis: Yes (BOTH KNEES) Musculoskeletal Disorders: Arthritis Endocrine History of Endocrine Disorders: Yes Endocrine Disorders: Diabetes, Insulin dep HEENT History of HEENT Disorders: No Loss of Vision: Denies Hearing Impairment: Denies Cancer History of Cancer: No Psychosocial History of Psychiatric Problem: Yes Behavioral Health Disorders: Schizophrenia, Depression Integumentary History of Skin or Integumenta: No Blood Transfusions History of Blood Disorders: No Adverse Reaction to a Blood Tr: No Family Medical History Significant Family History: No Pertinent Family Hx Family Medial History: Alzheimer's disease 19 MOTHER Arthritis 19 FATHER Cardiovascular disease 19 FATHER Dementia 19 MOTHER Hypertension 19 FATHER Myocardial infarction G8 BROTHER Parkinson's disease 19 MOTHER Prostate cancer 19 FATHER No Family History of: AIDS Abdominal aortic aneurysm [place]'s disease Alcoholism Aphasia Asthma Cancer of mouth Cataracts Colon cancer Completed stroke Congenital disease Congenital heart disease Coronary thrombosis Cystic fibrosis Deafness or hearing loss Diabetes mellitus Drug abuse Dysphasia Fibrocystic disease of breast Gastroenteritis Glaucoma Headache disorder Hypercholesterolemia Infertility Kidney disease Neoplasm Not obtainable due to adoption Osteoporosis Psychosocial problem Respiratory disorder Seizure disorder Severe allergy Thyroid disease Tuberculosis Visual disorder Physical Exam Vital Signs VS - Last 72 Hours, by Label 09/24/17 14:12 Temp 98.1 Pulse 99 Resp 22 B/P (MAP) 139/46 (77) Pulse Ox 96 Capillary Refill : General Appearance: WD/WN, no apparent distress, obese HEENT: PERRL/EOMI, normal ENT inspection Neck: non-tender, full range of motion Respiratory: normal breath sounds, no respiratory distress, no accessory muscle use Cardiovascular: regular rate, rhythm, no murmur Gastrointestinal: normal bowel sounds, soft, tenderness Extremities: normal range of motion, non-tender Neurologic/Psychiatric: alert, normal mood/affect, oriented x 3 Skin: normal color, warm/dry Progress/Results/Core Measures Results/Orders Lab Results Laboratory Tests Test 09/24/17 13:35 09/24/17 14:54 Range/Units White Blood Count 8.4 4.3-11.0 10^3/uL Red Blood Count 4.87 4.35-5.85 10^6/uL Hemoglobin 14.5 13.3-17.7 G/DL Hematocrit 43 40-54 % Mean Corpuscular Volume 88 80-99 FL Mean Corpuscular Hemoglobin 30 25-34 PG Mean Corpuscular Hemoglobin Concent 34 32-36 G/DL Red Cell Distribution Width 13.8 10.0-14.5 % Platelet Count 144 130-400 10^3/uL Mean Platelet Volume 11.4 H 7.4-10.4 FL Neutrophils (%) (Auto) 65 42-75 % Lymphocytes (%) (Auto) 24 12-44 % Monocytes (%) (Auto) 8 0-12 % Eosinophils (%) (Auto) 2 0-10 % Basophils (%) (Auto) 1 0-10 % Neutrophils # (Auto) 5.5 1.8-7.8 X 10^3 Lymphocytes # (Auto) 2.0 1.0-4.0 X 10^3 Monocytes # (Auto) 0.7 0.0-1.0 X 10^3 Eosinophils # (Auto) 0.2 0.0-0.3 10^3/uL Basophils # (Auto) 0.0 0.0-0.1 10^3/uL Sodium Level 135 135-145 MMOL/L Potassium Level 4.7 3.6-5.0 MMOL/L Chloride Level 97 L 98-107 MMOL/L Carbon Dioxide Level 27 21-32 MMOL/L Anion Gap 11 5-14 MMOL/L Blood Urea Nitrogen 21 H 7-18 MG/DL Creatinine 0.82 0.60-1.30 MG/DL Estimat Glomerular Filtration Rate > 60 BUN/Creatinine Ratio 26 Glucose Level 461 *H 70-105 MG/DL Calcium Level 9.4 8.5-10.1 MG/DL Total Bilirubin 0.4 0.1-1.0 MG/DL Aspartate Amino Transf (AST/SGOT) 44 H 5-34 U/L Alanine Aminotransferase (ALT/SGPT) 62 H 0-55 U/L Alkaline Phosphatase 157 H 40-136 U/L Total Protein 6.5 6.4-8.2 GM/DL Albumin 3.5 3.2-4.5 GM/DL Lipase 53 8-78 U/L Urine Color YELLOW Urine Clarity CLEAR Urine pH 6 5-9 Urine Specific [place] 1.010 L 1.016-1.022 Urine Protein NEGATIVE NEGATIVE Urine Glucose (UA) 4+ H NEGATIVE Urine Ketones NEGATIVE NEGATIVE Urine Nitrite NEGATIVE NEGATIVE Urine Bilirubin NEGATIVE NEGATIVE Urine Urobilinogen NORMAL NORMAL MG/DL Urine Leukocyte Esterase NEGATIVE NEGATIVE Urine RBC (Auto) NEGATIVE NEGATIVE Urine RBC NONE /HPF Urine WBC NONE /HPF Urine Squamous Epithelial Cells RARE /HPF Urine Crystals NONE /LPF Urine Bacteria NEGATIVE /HPF Urine Casts NONE /LPF Urine Mucus NEGATIVE /LPF Urine Culture Indicated NO Urine Opiates Screen POSITIVE H NEGATIVE Urine Oxycodone Screen NEGATIVE NEGATIVE Urine Methadone Screen NEGATIVE NEGATIVE Urine Propoxyphene Screen NEGATIVE NEGATIVE Urine Barbiturates Screen NEGATIVE NEGATIVE Ur Tricyclic Antidepressants Screen NEGATIVE NEGATIVE Urine Phencyclidine Screen NEGATIVE NEGATIVE Urine Amphetamines Screen POSITIVE H NEGATIVE Urine Methamphetamines Screen POSITIVE H NEGATIVE Urine Benzodiazepines Screen NEGATIVE NEGATIVE Urine Cocaine Screen NEGATIVE NEGATIVE Urine Cannabinoids Screen NEGATIVE NEGATIVE My Orders Orders - ABIGAIL CLINTON STAGE MANAGER Cbc With Automated Diff (09/24/17 13:41) Comprehensive Metabolic Panel (09/24/17 13:41) Ua Culture If Indicated (09/24/17 13:41) Saline Lock/Iv-Start (09/24/17 13:41) Ct Abdomen/Pelvis W (09/24/17 13:41) Drug Screen Stat (Urine) (09/24/17 13:41) Lipase (09/24/17 13:41) Chest 1 View, Ap/Pa Only (09/24/17 13:41) Ns Iv 1000 Ml (Sodium Chloride 0.9%) (09/24/17 13:45) Ondansetron Injection (Zofran Injectio (09/24/17 13:45) Fentanyl Injection (Sublimaze Injection (09/24/17 13:45) Iohexol Injection (Omnipaque 350 Mg/Ml 1 (09/24/17 14:15) Ns (Ivpb) (Sodium Chloride 0.9% Ivpb Bag (09/24/17 14:15) Antacid Suspension (Mylanta Suspension (09/24/17 14:30) Lidocaine 2% Viscous 15 Ml (Xylocaine Vi (09/24/17 14:30) Insulin (Regular) Human (Humulin R (Per (09/24/17 14:45) Insulin (Regular) Human (Humulin R (Per (09/24/17 15:00) Medications Given in ED Current Medications Medications Dose Ordered Sig/Shadia Route Start Time Stop Time Status Last Admin Dose Admin Al Hydrox/Mg Hydrox/Simethicone 30 ml ONCE ONCE PO 09/24/17 14:30 09/24/17 14:31 DC 09/24/17 14:53 30 ML Fentanyl Citrate 100 mcg ONCE PRN IVP 09/24/17 13:45 09/24/17 14:02 100 MCG Insulin Human Regular 8 unit ONCE ONCE IV 09/24/17 15:00 09/24/17 15:01 DC 09/24/17 14:53 8 UNIT Iohexol 100 ml ONCE ONCE IV 09/24/17 14:15 09/24/17 14:16 DC 09/24/17 14:19 130 ML Lidocaine HCl 15 ml ONCE ONCE PO 09/24/17 14:30 09/24/17 14:31 DC 09/24/17 14:53 15 ML Ondansetron HCl 4 mg ONCE ONCE IVP 09/24/17 13:45 09/24/17 13:46 DC 09/24/17 14:02 4 MG Sodium Chloride 100 ml ONCE ONCE IV 09/24/17 14:15 09/24/17 14:16 DC 09/24/17 14:19 80 ML Vital Signs/I&O Vital Sign - Last 12Hours 09/24/17 14:12 Temp 98.1 Pulse 99 Resp 22 B/P (MAP) 139/46 (77) Pulse Ox 96 Diagnostic Imaging Diagonstic Imaging: Xray Plain Films/CT/US/NM/MRI: chest Comments NAME: SUSSY GATES [facility] REC#: [id number] PT STATUS: REG ER : 1970 PHYSICIAN: ABIGAIL CLINTON APRN ADMIT DATE: 09/24/17/ER Draft Date of Exam:09/24/17 CT ABDOMEN/PELVIS W PROCEDURE: CT abdomen and pelvis with contrast. TECHNIQUE: Multiple contiguous axial images were obtained through the abdomen and pelvis after administration of intravenous contrast. INDICATION: Midabdominal pain, history of pancreatitis. FINDINGS: The previous CT abdomen/pelvis exam of 06/05/2012 suggested a small bowel ileus in the left upper quadrant. There was no evidence for acute pancreatitis. On this exam, there are still a few fluid-filled segments of small bowel in the left abdomen. This appearance is nonspecific but may be secondary to mild ileus, perhaps related to enteritis. As noted on the prior study, the liver is enlarged and of lower density than usually seen. The liver measures approximately 28 cm in length. There is no focal mass involving the liver and the biliary tree is not abnormally dilated. The gallbladder is surgically absent. Spleen is also enlarged measuring approximately 17 cm in length. The spleen is similar in size to the prior exam. There are fat-density masses associated with each adrenal gland. The left adrenal gland mass measures approximately 2.6 cm in maximum diameter while the right adrenal mass is estimated to be 1.8 cm. These findings are most likely due to adrenal myolipomas. The pancreas is not enlarged and there is no distortion of the peripancreatic fat to suggest pancreatitis. The stomach is partially filled with fluid and consequently difficult to assess. There is no pelvic mass or free fluid collection identified. The urinary bladder is grossly unremarkable. The prostate gland does not appear to be enlarged. There may be a few diverticula in the sigmoid and descending colon but there is no evidence for acute diverticulitis. The appendix was not well visualized but there is no evidence for appendicitis. The bone windows show no sign of a fracture or of a destructive lesion. The lung bases are clear. IMPRESSION: 1. There is no acute abnormality of the abdomen or pelvis. In particular, there is no sign of pancreatitis. 2. There are few fluid-filled segments of small bowel. These findings are nonspecific but could be secondary to mild ileus, perhaps related to enteritis. 3. There is hepatosplenomegaly. This is unchanged when compared to the prior exam. 4. The fat-density masses associated with the adrenal glands are most likely due to adrenal myolipomas. 5. These results will be discussed with Abigail Clinton APRN, in the ER. Dictated on workstation # [id number] Dict: 09/24/17 1437 Trans: 09/24/17 1456 [id number] Interpreted by: HARIS BARAJAS MD Electronically signed by: Departure Communication (Admissions) Progress Notes 1531- after the GI cocktail the pain in the right upper quadrant is gone. The laboratory and CAT scan evaluation are unremarkable. We will discharge to home to continue his Carafate and omeprazole. He does have an appointment to establish care with psychiatric hospital tomorrow with [facility] Impression Impression: Primary Impression: Hyperglycemia Additional Impressions: Gastritis Right upper quadrant pain Disposition: HOME, SELF-CARE Condition: Stable Departure-Patient Inst. Decision time for Depature: 15:33 Referrals: SHILPA POTTS DO (PCP/Family) Primary Care Physician Patient Instructions: Acute Abdomen (Belly Pain), Adult (DC), Peptic Ulcers (DC ) Add. Discharge Instructions: 1. Continue your sucralfate and omeprazole. [place] diet. Follow-up with psychiatric hospital tomorrow as scheduled. All discharge instructions reviewed with patient and/or family. Voiced understanding. Copy Copies To 1: SIVAKUMAR LAUREN PETER J APRN Sep 24, 2017 13:45
[2017-09-24 13:48] LABS: BASOPHILS % (AUTO) 1 % (0-10); EOSINOPHILS # (AUTO) 0.2 10^3/uL (0.0-0.3); EOSINOPHILS % (AUTO) 2 % (0-10); HEMATOCRIT 43 % (40-54); HEMOGLOBIN 14.5 G/DL (13.3-17.7); LYMPHOCYTES % (AUTO) 24 % (12-44); MEAN CORPUSCULAR HEMOGLOBIN 30 PG (25-34); MEAN CORPUSCULAR HGB CONC 34 G/DL (32-36); MEAN CORPUSCULAR VOLUME 88 FL (80-99); MEAN PLATELET VOLUME 11.4 FL (7.4-10.4); MONOCYTES # (AUTO) 0.7 X 10^3 (0.0-1.0); MONOCYTES % (AUTO) 8 % (0-12); NEUTROPHILS # (AUTO) 5.5 X 10^3 (1.8-7.8); NEUTROPHILS % (AUTO) 65 % (42-75); PLATELET COUNT 144 10^3/uL (130-400); RED BLOOD COUNT 4.87 10^6/uL (4.35-5.85); RED CELL DISTRIBUTION WIDTH 13.8 % (10.0-14.5); WHITE BLOOD COUNT 8.4 10^3/uL (4.3-11.0)
[2017-09-24 14:05] LABS: ALANINE AMINOTRANSFERASE 62 U/L (0-55); ALBUMIN 3.5 GM/DL (3.2-4.5); ALKALINE PHOSPHATASE 157 U/L (40-136); BILIRUBIN,TOTAL 0.4 MG/DL (0.1-1.0); BUN/CREATININE RATIO 26; CALCIUM 9.4 MG/DL (8.5-10.1); CARBON DIOXIDE 27 MMOL/L (21-32); CHLORIDE 97 MMOL/L (98-107); CREATININE SERUM 0.82 MG/DL (0.60-1.30); GFR ESTIMATED > 60; LIPASE 53 U/L (8-78); POTASSIUM 4.7 MMOL/L (3.6-5.0); SODIUM 135 MMOL/L (135-145); TOTAL PROTEIN 6.5 GM/DL (6.4-8.2)
[2017-09-24] MEDS ORDERED: IOHEXOL 350 MG/ML 100 ML (OMNIPAQUE 350) VIAL IV ONE (14:15)
[2017-09-24] MEDS ORDERED: NS 100 ML (IVPB) BAG IV ONE (14:15)
[2017-09-24] MEDS ORDERED: LIDOCAINE 2% VISCOUS 15 ML UDC PO ONE (14:30)
[2017-09-24] MEDS ORDERED: ANTACID SUSP 30 ML UDC (MYLANTA) PO ONE (14:30)
[2017-09-24 14:45] LABS: GLUCOSE 461 MG/DL (70-105)
[2017-09-24] MEDS ORDERED: inSUlin (REGULAR) HUMAN 1 UNIT/0.01 ML (CHARGE PER UNIT) SC ONE (14:45)
--- NOTE | 2017-09-24 14:57 | Diagnostic Imaging Report ---
PROCEDURE: CT abdomen and pelvis with contrast. TECHNIQUE: Multiple contiguous axial images were obtained through the abdomen and pelvis after administration of intravenous contrast. INDICATION: Midabdominal pain, history of pancreatitis. FINDINGS: The previous CT abdomen/pelvis exam of 06/05/2012 suggested a small bowel ileus in the left upper quadrant. There was no evidence for acute pancreatitis. On this exam, there are still a few fluid-filled segments of small bowel in the left abdomen. This appearance is nonspecific but may be secondary to mild ileus, perhaps related to enteritis. As noted on the prior study, the liver is enlarged and of lower density than usually seen. The liver measures approximately 28 cm in length. There is no focal mass involving the liver and the biliary tree is not abnormally dilated. The gallbladder is surgically absent. Spleen is also enlarged measuring approximately 17 cm in length. The spleen is similar in size to the prior exam. There are fat-density masses associated with each adrenal gland. The left adrenal gland mass measures approximately 2.6 cm in maximum diameter while the right adrenal mass is estimated to be 1.8 cm. These findings are most likely due to adrenal myolipomas. The pancreas is not enlarged and there is no distortion of the peripancreatic fat to suggest pancreatitis. The stomach is partially filled with fluid and consequently difficult to assess. There is no pelvic mass or free fluid collection identified. The urinary bladder is grossly unremarkable. The prostate gland does not appear to be enlarged. There may be a few diverticula in the sigmoid and descending colon but there is no evidence for acute diverticulitis. The appendix was not well visualized but there is no evidence for appendicitis. The bone windows show no sign of a fracture or of a destructive lesion. The lung bases are clear. IMPRESSION: 1. There is no acute abnormality of the abdomen or pelvis. In particular, there is no sign of pancreatitis. 2. There are few fluid-filled segments of small bowel. These findings are nonspecific but could be secondary to mild ileus, perhaps related to enteritis. 3. There is hepatosplenomegaly. This is unchanged when compared to the prior exam. 4. The fat-density masses associated with the adrenal glands are most likely due to adrenal myolipomas. 5. These results will be discussed with Sandoval Clinton APRN, in the ER. Dictated by: Dictated on workstation # [id number]
[2017-09-24] MEDS ORDERED: inSUlin (REGULAR) HUMAN 1 UNIT/0.01 ML (CHARGE PER UNIT) IV ONE (15:00)
[2017-09-24 15:03] LABS: BILIRUBIN,URINE NEGATIVE (NEGATIVE); CLARITY,URINE CLEAR; COLOR,URINE YELLOW; GLUCOSE, URINE (UA) 4+ (NEGATIVE); KETONES,URINE NEGATIVE (NEGATIVE); LEUKOCYTE ESTERASE ,URINE NEGATIVE (NEGATIVE); NITRITE,URINE NEGATIVE (NEGATIVE); PH,URINE 6 (5-9); PROTEIN,URINE NEGATIVE (NEGATIVE); UROBILINOGEN,URINE NORMAL (NORMAL)
--- NOTE | 2017-09-24 15:07 | Diagnostic Imaging Report ---
INDICATION: Epigastric pain. Portable chest at 2:57 PM FINDINGS: Heart and mediastinum are normal. Lungs are clear. There are no effusions or pneumothoraces. IMPRESSION: Negative chest. Dictated by: Dictated on workstation # [id number]
[2017-09-24 15:20] LABS: AMPHETAMINE SCREEN, URINE POSITIVE (NEGATIVE); BARBITURATE SCREEN URINE NEGATIVE (NEGATIVE); BENZODIAZEPINES SCREEN URINE NEGATIVE (NEGATIVE); CANNABINOID SCREEN, URINE NEGATIVE (NEGATIVE); COCAINE SCREEN URINE NEGATIVE (NEGATIVE); METHADONE STAT NEGATIVE (NEGATIVE); METHAMPHETAMINE SCREEN URINE S POSITIVE (NEGATIVE); OPIATE SCREEN URINE POSITIVE (NEGATIVE); OXYCODONE STAT NEGATIVE (NEGATIVE); PROPOXYPHENE STAT NEGATIVE (NEGATIVE); TRICYCLIC ANTIDEPRESSANTS SCRE NEGATIVE (NEGATIVE)
[2017-09-24 15:28] LABS: BACTERIA,URINE NEGATIVE /HPF; SQUAMOUS EPITHELIAL CELL,UR RARE /HPF
[2017-09-24 15:41] VITALS: BP 132/50
== END 2017-09-24 15:41 | disposition home or self-care (01) ==
LOC: EDUNIT# 13:21 → ER 13:22
DX: K52.9 Noninfective gastroenteritis and colitis, unspecified (principal); E11.65 Type 2 diabetes mellitus with hyperglycemia; I10 Essential (primary) hypertension; F20.9 Schizophrenia, unspecified; F32.9 Major depressive disorder, single episode, unspecified; K21.9 Gastro-esophageal reflux disease without esophagitis; E78.00 Pure hypercholesterolemia, unspecified; M17.0 Bilateral primary osteoarthritis of knee; Z90.49 Acquired absence of other specified parts of digestive tract; Z87.891 Personal history of nicotine dependence; Z87.19 Personal history of other diseases of the digestive system; Z79.4 Long term (current) use of insulin; Z79.82 Long term (current) use of aspirin
CPT/HCPCS: 36415; 71045; 74177; 80053; 80306; 81000; 82962; 83690; 85025; 96361; 96374; 96375

== ENCOUNTER 2017-10-06 14:48 | Emergency (ER) | payer MEDICARE, MEDICAID ==
[~2017-10-06] VITALS: Ht 167.6 cm; Wt 172.4 kg
[2017-10-06] MEDS ORDERED: NS IV 1000 ML 1,000 ML IV ONE (15:16)
[2017-10-06 15:28] LABS: BASOPHILS % (AUTO) 1 % (0-10); EOSINOPHILS # (AUTO) 0.2 10^3/uL (0.0-0.3); EOSINOPHILS % (AUTO) 2 % (0-10); HEMATOCRIT 40 % (40-54); HEMOGLOBIN 13.8 G/DL (13.3-17.7); LYMPHOCYTES # (AUTO) 1.7 X 10^3 (1.0-4.0); LYMPHOCYTES % (AUTO) 22 % (12-44); MEAN CORPUSCULAR HEMOGLOBIN 30 PG (25-34); MEAN CORPUSCULAR HGB CONC 34 G/DL (32-36); MEAN CORPUSCULAR VOLUME 87 FL (80-99); MEAN PLATELET VOLUME 10.5 FL (7.4-10.4); MONOCYTES # (AUTO) 0.7 X 10^3 (0.0-1.0); MONOCYTES % (AUTO) 9 % (0-12); NEUTROPHILS # (AUTO) 5.1 X 10^3 (1.8-7.8); NEUTROPHILS % (AUTO) 67 % (42-75); PLATELET COUNT 158 10^3/uL (130-400); RED BLOOD COUNT 4.66 10^6/uL (4.35-5.85); RED CELL DISTRIBUTION WIDTH 13.8 % (10.0-14.5); WHITE BLOOD COUNT 7.7 10^3/uL (4.3-11.0)
[2017-10-06 15:46] LABS: ALANINE AMINOTRANSFERASE 62 U/L (0-55); ALBUMIN 3.4 GM/DL (3.2-4.5); ALKALINE PHOSPHATASE 130 U/L (40-136); BILIRUBIN,TOTAL 0.5 MG/DL (0.1-1.0); BUN/CREATININE RATIO 13; CALCIUM 9.1 MG/DL (8.5-10.1); CARBON DIOXIDE 23 MMOL/L (21-32); CHLORIDE 98 MMOL/L (98-107); CREATININE SERUM 0.84 MG/DL (0.60-1.30); GFR ESTIMATED > 60; LIPASE 33 U/L (8-78); POTASSIUM 4.3 MMOL/L (3.6-5.0); SODIUM 133 MMOL/L (135-145); TOTAL PROTEIN 6.5 GM/DL (6.4-8.2)
[2017-10-06 15:47] LABS: GLUCOSE 517 MG/DL (70-105)
[2017-10-06] MEDS ORDERED: ONDANSETRON 4 MG/2 ML (SDV) Z0FRAN IVP ONE (16:00)
[2017-10-06] MEDS ORDERED: PANTOPRAZOLE 40 MG/10 ML (PROTONIX) VIAL IV ONE (16:00)
[2017-10-06] MEDS ORDERED: fentaNYL INJECTION 100 MCG/2 ML AMP IVP ONE (16:00)
[2017-10-06] MEDS ORDERED: inSUlin (REGULAR) HUMAN 1 UNIT/0.01 ML (CHARGE PER UNIT) IV ONE (16:15)
[2017-10-06] MEDS ORDERED: LIDOCAINE 2% VISCOUS 15 ML UDC PO ONE (16:45)
[2017-10-06] MEDS ORDERED: ANTACID SUSP 30 ML UDC (MYLANTA) PO ONE (16:45)
[2017-10-06 16:46] LABS: BILIRUBIN,URINE NEGATIVE (NEGATIVE); CLARITY,URINE CLEAR; COLOR,URINE YELLOW; GLUCOSE, URINE (UA) 4+ (NEGATIVE); KETONES,URINE NEGATIVE (NEGATIVE); LEUKOCYTE ESTERASE ,URINE NEGATIVE (NEGATIVE); NITRITE,URINE NEGATIVE (NEGATIVE); PH,URINE 6 (5-9); PROTEIN,URINE NEGATIVE (NEGATIVE); UROBILINOGEN,URINE NORMAL (NORMAL)
--- NOTE | 2017-10-06 17:44 | ED General ---
General Chief Complaint: Glucose Problems Stated Complaint: BLOOD IN URINE/STOOL, HIGH BLOOD SUGAR Nursing Triage Note: pt presents to ed from walk in clinic at [facility]. pt reports he has not taken his insulin or any of his other medication including bp meds because his has not been home and she always sets them up/gives them to him. pt also reports rectal bleeding and blood in his urine. Nursing Sepsis Screen: No Definite Risk Source of Information: Patient Exam Limitations: No Limitations History of Present Illness Date Seen by Provider: Oct 06, 2017 Time Seen by Provider: 14:51 Initial Comments This 47-year-old man presents to the emergency room by private vehicle with concerns about hematochezia and hematuria. He also complains of pain in the epigastrium and right upper quadrant. He is status post cholecystectomy. Patient reports he drank alcohol couple of nights ago. He has been nauseated without vomiting. He has had some intermittent diarrhea. He believes he has a duodenal ulcer and was seen in the emergency room on September 24 with pain in the same area. It was noted his pain resolved with GI cocktail. He was instructed to resume taking omeprazole and Carafate which she had at home. He has been taking that until 3 days ago when he ran out of the medication. Symptoms seem to have restarted since then. Patient has no active bleeding at this time. Patient admittedly is not very compliant with medications when his does not believe them out for him. He is hyperglycemic today but has not taken his insulin. On examination, patient also has excoriated eroded skin under his foreskin suggestive of yeast. Patient states he had been treated with pills topical creams but symptoms returned after stopping these medications. Allergies and Home Medications Allergies Coded Allergies: NKANo Known Allergies (Verified Allergy, Unknown, 10/10/05) Home Medications Albuterol Sulfate 1 Puff Puff, 2 PUFF IH Q4H PRN for SHORTNESS OF BREATH, #1 Ref 0 MDI Prescribed by: GENOVEVA WEST on 01/17/15 0932 Amlodipine Besylate 5 Mg Tablet, 5 MG PO DAILY, (Reported) Amoxicillin/Potassium Clav 1 Each Tablet, 1 EACH PO Q12H, (Reported) TAKE FOR 10 DAYS, STARTED 10/06/16 Aspirin 81 Mg Tab.chew, 81 MG PO DAILY, (Reported) Benzonatate 200 Mg Capsule, 200 MG PO TID, (Reported) Fluconazole 150 Mg Tablet, 150 MG PO UD, #2 One tablet now. Repeat in 3 or 4 days Prescribed by: OSMAN JUÁREZ on 10/06/171814 Furosemide 40 Mg Tablet, 40 MG PO DAILY, (Reported) Furosemide 40 Mg Tablet, 20 MG PO DAILY 1600, (Reported) Ibuprofen 800 Mg Tablet, 800 MG PO q8h PRN for PAIN, (Reported) Insulin Aspart 100 Unit/1 Ml Insuln.pen, 25 UNIT SQ AC, (Reported) Insulin Glargine,Hum.rec.anlog 300 Unit/3 Ml Insuln.pen, 100 UNITS SQ BID, ( Reported) Lisinopril 40 Mg Tablet, 40 MG PO DAILY, (Reported) Metformin Hcl 850 Mg Tablet, 850 MG PO AC, (Reported) CAN NOT LOCATE FILLED Multivitamin 1 Each Tablet, 1 TAB PO DAILY, (Reported) Nystatin 1 Each Powder.ea., 1 APPLIC MC BID, #1 Sprenkle on affected area twice daily Prescribed by: OSMAN JUÁREZ on 10/06/171814 Omeprazole 40 Mg Capsule.dr, 40 MG PO BID, #60 Prescribed by: OSMAN JUÁREZ on 10/06/17 1752 Potassium Chloride 10 Meq Tablet.er, 10 MEQ PO DAILY, (Reported) Prednisone 10 Mg Tab.ds.pk, 10 MG PO DAILY, #42 Take 6 tabs(60mg)daily,decrease by 1 tab(10mg)every other day. Prescribed by: ROBIN ROGEL on 10/09/16 0915 Sucralfate 1 Gm Tablet, 1 GM PO QID, #120 Crush to make slurry with 10 mL water. 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) Smoking Status: Former Smoker Former Smoker, Quit: Oct 08, 1996 Recent Foreign Travel: No Contact w/Someone Who Travel: No Recent Infectious Disease Expo: No Recent Hopitalizations: No Physical Abuse: No Sexual Abuse: No Mistreated: No Fear: No Immunizations Up To Date Tetanus Booster (TDap): Unknown PED Vaccines UTD: No Date of Pneumonia Vaccine: Oct 08, 2010 Seasonal Allergies Seasonal Allergies: No Surgeries History of Surgeries: Yes (PANCREAS STENT-HAS BEEN REMOVED) Surgeries: Gallbladder, Orthopedic, Tonsillectomy Respiratory History of Respiratory Disorde: No Currently Using BIPAP: No Cardiovascular History of Cardiac Disorders: Yes Cardiac Disorders: Chronic Edema/Swelling, High Cholesterol, Hypertension Neurological History of Neurological Disord: No Reproductive System Hx Reproductive Disorders: No Sexually Transmitted Disease: No HIV/AIDS: No Genitourinary History of Genitourinary Disor: No Gastrointestinal History of Gastrointestinal Di: Yes Gastrointestinal Disorders: Gastroesophageal Reflux, Pancreatitis, Gall Bladder Disease Musculoskeletal History of Musculoskeletal Dis: Yes (BOTH KNEES) Musculoskeletal Disorders: Arthritis Endocrine History of Endocrine Disorders: Yes (Morbid obesity) Endocrine Disorders: Diabetes, Insulin dep (Uncontrolled) HEENT History of HEENT Disorders: No Loss of Vision: Denies Hearing Impairment: Denies Cancer History of Cancer: No Psychosocial History of Psychiatric Problem: Yes Behavioral Health Disorders: Schizophrenia, Depression Suicide Risk Score: 0 Integumentary History of Skin or Integumenta: No Blood Transfusions History of Blood Disorders: No Adverse Reaction to a Blood Tr: No Family Medical History Significant Family History: No Pertinent Family Hx Family Medial History: Alzheimer's disease 19 MOTHER Arthritis 19 FATHER Cardiovascular disease 19 FATHER Dementia 19 MOTHER Hypertension 19 FATHER Myocardial infarction G8 BROTHER Parkinson's disease 19 MOTHER Prostate cancer 19 FATHER No Family History of: AIDS Abdominal aortic aneurysm [place]'s disease Alcoholism Aphasia Asthma Cancer of mouth Cataracts Colon cancer Completed stroke Congenital disease Congenital heart disease Coronary thrombosis Cystic fibrosis Deafness or hearing loss Diabetes mellitus Drug abuse Dysphasia Fibrocystic disease of breast Gastroenteritis Glaucoma Headache disorder Hypercholesterolemia Infertility Kidney disease Neoplasm Not obtainable due to adoption Osteoporosis Psychosocial problem Respiratory disorder Seizure disorder Severe allergy Thyroid disease Tuberculosis Visual disorder Physical Exam Vital Signs Vital Sign - Last 12Hours 10/06/17 15:13 Temp 98.7 Pulse 104 Resp 18 B/P (MAP) 160/83 (108) Pulse Ox 93 Capillary Refill : Less Than 3 Seconds General Appearance: WD/WN, Mild Distress, Obese HEENT: PERRL/EOMI, Normal ENT Inspection, Pharynx Normal Neck: Normal Inspection Respiratory: Lungs Clear, Normal Breath Sounds, No Accessory Muscle Use, No Respiratory Distress Cardiovascular: Regular Rate, Rhythm, No Edema, No Murmur Gastrointestinal: Normal Bowel Sounds, Soft, Tenderness (Epigastrium and right upper quadrant) Rectal: Normal Rectal Tone, Heme Positive Stool, Hemorrhoids, Tenderness Extremity: Normal Inspection, No Pedal Edema Neurologic/Psychiatric: Alert, Oriented x3, No Motor/Sensory Deficits, Normal 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, 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 Norm as Tested Skin: Normal Color, Warm/Dry, Other (Perforated/excoriated and erythematous skin underneath the foreskin) Progress/Results/Core Measures Suspected Sepsis Recent Fever Within 48 Hours: No Infection Criteria Present: None New/Unexplained Altered Menta: No Sepsis Screen: No Definite Risk Sepsis Diagnosis: SIRS Temperature:98.7 Pulse: 104 Respiratory Rate: 18 Laboratory Tests 10/06/17 15:21: White Blood Count 7.7 Blood Pressure 160 /83 Mean: 108 Laboratory Tests 10/06/17 15:21: Creatinine 0.84, Platelet Count 158, Total Bilirubin 0.5 Results/Orders Lab Results Laboratory Tests Test 10/06/17 15:08 10/06/17 15:21 10/06/17 16:35 10/06/17 16:54 Range/Units Glucometer 462 *H 329 H 70-110 MG/DL White Blood Count 7.7 4.3-11.0 10^3/uL Red Blood Count 4.66 4.35-5.85 10^6/uL Hemoglobin 13.8 13.3-17.7 G/DL Hematocrit 40 40-54 % Mean Corpuscular Volume 87 80-99 FL Mean Corpuscular Hemoglobin 30 25-34 PG Mean Corpuscular Hemoglobin Concent 34 32-36 G/DL Red Cell Distribution Width 13.8 10.0-14.5 % Platelet Count 158 130-400 10^3/uL Mean Platelet Volume 10.5 H 7.4-10.4 FL Neutrophils (%) (Auto) 67 42-75 % Lymphocytes (%) (Auto) 22 12-44 % Monocytes (%) (Auto) 9 0-12 % Eosinophils (%) (Auto) 2 0-10 % Basophils (%) (Auto) 1 0-10 % Neutrophils # (Auto) 5.1 1.8-7.8 X 10^3 Lymphocytes # (Auto) 1.7 1.0-4.0 X 10^3 Monocytes # (Auto) 0.7 0.0-1.0 X 10^3 Eosinophils # (Auto) 0.2 0.0-0.3 10^3/uL Basophils # (Auto) 0.0 0.0-0.1 10^3/uL Sodium Level 133 L 135-145 MMOL/L Potassium Level 4.3 3.6-5.0 MMOL/L Chloride Level 98 98-107 MMOL/L Carbon Dioxide Level 23 21-32 MMOL/L Anion Gap 12 5-14 MMOL/L Blood Urea Nitrogen 11 7-18 MG/DL Creatinine 0.84 0.60-1.30 MG/DL Estimat Glomerular Filtration Rate > 60 BUN/Creatinine Ratio 13 Glucose Level 517 *H 70-105 MG/DL Calcium Level 9.1 8.5-10.1 MG/DL Total Bilirubin 0.5 0.1-1.0 MG/DL Aspartate Amino Transf (AST/SGOT) 50 H 5-34 U/L Alanine Aminotransferase (ALT/SGPT) 62 H 0-55 U/L Alkaline Phosphatase 130 40-136 U/L Total Protein 6.5 6.4-8.2 GM/DL Albumin 3.4 3.2-4.5 GM/DL Lipase 33 8-78 U/L Urine Color YELLOW Urine Clarity CLEAR Urine pH 6 5-9 Urine Specific [place] 1.020 1.016-1.022 Urine Protein NEGATIVE NEGATIVE Urine Glucose (UA) 4+ H NEGATIVE Urine Ketones NEGATIVE NEGATIVE Urine Nitrite NEGATIVE NEGATIVE Urine Bilirubin NEGATIVE NEGATIVE Urine Urobilinogen NORMAL NORMAL MG/DL Urine Leukocyte Esterase NEGATIVE NEGATIVE Urine RBC (Auto) NEGATIVE NEGATIVE Urine RBC NONE /HPF Urine WBC NONE /HPF Urine Squamous Epithelial Cells 2-5 /HPF Urine Crystals NONE /LPF Urine Bacteria NONE /HPF Urine Casts NONE /LPF Urine Mucus NEGATIVE /LPF Urine Culture Indicated NO My Orders Orders - OSMAN MOSLEY MD Cbc With Automated Diff (10/06/17 15:16) Comprehensive Metabolic Panel (10/06/17 15:16) Lipase (10/06/17 15:16) Ua Culture If Indicated (10/06/17 15:16) Saline Lock/Iv-Start (10/06/17 15:16) Ns Iv 1000 Ml (Sodium Chloride 0.9%) (10/06/17 15:16) Pantoprazole Injection (Protonix Injecti (10/06/17 16:00) Ondansetron Injection (Zofran Injectio (10/06/17 16:00) Fentanyl Injection (Sublimaze Injection (10/06/17 16:00) Insulin (Regular) Human (Humulin R (Per (10/06/17 16:15) Accucheck Stat ONCE (10/06/17 16:41) Fecal Occult Bedside (10/06/17 16:41) Accucheck Stat ONCE (10/06/17 16:41) Lidocaine 2% Viscous 15 Ml (Xylocaine Vi (10/06/17 16:45) Antacid Suspension (Mylanta Suspension (10/06/17 16:45) Medications Given in ED Vital Signs/I&O Intake and Output 10/07/17 00:00 Intake Total 1000 ml Balance 1000 ml Capillary Refill : Less Than 3 Seconds Blood Pressure Mean: 108 Point of Care Testing Finger Stick Blood Glucose: 329 Blood Glucose Action Taken: dr notified Progress Note : Progress Note Patient was given a liter of IV fluids. Symptoms were treated with Zofran, fentanyl, GI cocktail, and Protonix. He had some residual pain even after treatment. Rectal exam revealed some external hemorrhoids without any active bleeding. Hemoccult was positive. He received 10 units of IV insulin which notably improved his blood sugar. Patient was dismissed with instructions to follow-up with a surgeon as soon as possible. His case was reviewed with Dr. Mike who suggested he be seen in the office next week to arrange endoscopy. In the meantime, I'm starting him back on Carafate and omeprazole. I also prescribed Diflucan and nystatin powder for the penile candidiasis. We discussed dietary modifications which were included in his discharge instructions. Departure Impression Impression: Primary Impression: Upper abdominal pain Additional Impressions: Candidiasis of penis Fecal occult blood test positive Poorly controlled diabetes mellitus Disposition: 01 HOME, SELF-CARE Condition: Improved Departure-Patient Inst. Decision time for Depature: 17:42 Referrals: OSCAR MIKE,LOCAL PHYSICIAN (PCP) Primary Care Physician Patient Instructions: Acute Abdomen (Belly Pain) Add. Discharge Instructions: Drink plenty of water. Take omeprazole twice daily as prescribed. Crush your Carafate to make a slurry with about 10 mL of water. Take it 30 minutes before meals and again before bedtime. Return to the emergency room if symptoms worsen. Contact Dr. Mike on Sunday for a follow-up appointment. He would like to do a colonoscopy and upper endoscopy within the next 1-2 weeks. If you need a referral from your primary care provider, please call them as soon as possible. Avoid the following: Eating large meals, eating close to bedtime, caffeine, tobacco products, chocolate, carbonation, citrus fruits and juices, tomato products, mints, spicy foods, fatty or greasy foods, NSAID medications such as ibuprofen or naproxen, or anything else you know irritates your stomach. All discharge instructions reviewed with patient and/or family. Voiced understanding. Scripts Nystatin (Nystatin) 1 Each Powder.ea. 1 APPLIC MC BID, #1 UNIT Sprenkle on affected area twice daily Prov: OSMAN MOSLEY MD 10/06/17 Fluconazole (Diflucan) 150 Mg Tablet 150 MG PO UD, #2 TAB One tablet now. Repeat in 3 or 4 days Prov: OSMAN MOSLEY MD 10/06/17 Omeprazole (Omeprazole) 40 Mg Capsule. 40 MG PO BID, #60 CAP Prov: OSMAN MOSLEY MD 10/06/17 Sucralfate (Carafate) 1 Gm Tablet 1 GM PO QID, #120 TAB Crush to make slurry with 10 mL water. Take 30 minutes before meals and bed Prov: OSMAN MOSLEY MD 10/06/17 Copy Copies To 1: LEIDY BENOIT MD Copies To 2: OSCAR MIKE JOSHUA T MD Oct 06, 2017 17:44
[2017-10-06] MEDS ORDERED: SUCR1TAB36 PO (17:45)
[2017-10-06] MEDS ORDERED: OMEP40CA36 PO (17:52)
[2017-10-06 18:08] VITALS: BP 160/83
[2017-10-06] MEDS ORDERED: NYST1POW22 MC (18:15)
[2017-10-06] MEDS ORDERED: FLUC150T PO (18:15)
--- OUTSIDE RECORDS SUMMARY | 2017-10-07 10:28 | XMS REPORT | Clinical Summary ---
Author Author [facility] Organization [facility] Address Unknown Phone Unavailable Care Team Providers Care Substance Abuse Nurse Name Role Phone Jonathan, Paco QURESHI PCP Johann Tobin MD Unavailable Source Comments Some departments are not documenting in the electronic medical record. If you do not see the information that you expected, contact Release of Information in the Health Information Management department at [phone] for further assistance in locating additional records.[facility] Allergies No Known Allergies Current Medications [...]
--- OUTSIDE RECORDS SUMMARY | 2017-10-07 10:29 | XMS REPORT | Continuity of Care Document ---
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 04/12/2016 OSMAN MOSLEY MD Ot Z79.899 OTHER CORRECTION (CURRENT) DRUG THERAPY 04/12/2016 BRANDON QURESHI, DONAL [...] WEAKNESS 04/13/2016 OSMAN MOSLEY MD Ot Z79.4 CORRECTION (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 04/13/2016 OSMAN MOSLEY MD Ot Z79.899 OTHER CORRECTION (CURRENT) DRUG THERAPY 04/29/2016 OSMAN MOSLEY MD [...] WEAKNESS 04/29/2016 OSMAN MOSLEY MD Ot Z79.4 BENCH ASSEMBLY INSPECTOR (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 04/29/2016 OSMAN MOSLEY MD Ot Z79.899 OTHER BENCH ASSEMBLY INSPECTOR (CURRENT) DRUG THERAPY 10/08/2016 DONAL TAYLOR MD [...] OBSTRUCTIVE SLEEP APNEA (ADULT) (PEDIATR 10/09/2016 ROBIN RGOEL DO Ot I10 ESSENTIAL (PRIMARY) HYPERTENSION 10/09/2016 ROBIN ROGEL DO Ot I25.10 ATHSCL HEART DISEASE OF [place] CORONARY 10/09/2016 ROBIN ROGEL DO Ot J44.1 CHRONIC OBSTRUCTIVE PULMONARY DISEASE W 10/09/2016 ROBIN ROGEL DO Ot J45.902 UNSPECIFIED ASTHMA WITH STATUS ASTHMATIC 10/09/2016 ROBIN ROGEL DO Ot K21.9 GASTRO-ESOPHAGEAL REFLUX DISEASE WITHOUT 10/09/2016 ROBIN ROGEL DO Ot Z79.4 CORRECTION (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 10/09/2016 ROBIN ROGEL DO Ot Z87.891 PERSONAL HISTORY OF NICOTINE DEPENDENCE 11/04/2016 EDUIN FLOREZ APRN Ot G47.33 OBSTRUCTIVE SLEEP APNEA (ADULT) (PEDIATR 11/04/2016 EDUIN FLOREZ APRN Ot G47.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 ALVEOL 11/06/2016 EDUIN FLOREZ [employer] Ot G47.33 OBSTRUCTIVE SLEEP APNEA (ADULT) (PEDIATR 11/06/2016 EDUIN FLOREZ [employer] Ot G47.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 ALVEOL 11/06/2016 EDUIN FLOREZ APRN Ot G47.33 OBSTRUCTIVE SLEEP APNEA (ADULT) (PEDIATR 11/06/2016 EDUIN FLOREZ [employer] Ot G47.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 ALVEOL 11/22/2016 EDUIN FLOREZ [employer] Ot J45.909 UNSPECIFIED ASTHMA, UNCOMPLICATED 11/22/2016 EDUIN FLOREZ [employer] Ot R06.02 SHORTNESS OF BREATH 09/26/2017 ABIGAIL LACY APRN Ot E11.65 TYPE 2 DIABETES MELLITUS WITH HYPERGLYCE 09/26/2017 ABIGAIL LACY APRN Ot E78.00 PURE HYPERCHOLESTEROLEMIA, UNSPECIFIED 09/26/2017 ABIGAIL LACY APRN Ot F20.9 SCHIZOPHRENIA, UNSPECIFIED 09/26/2017 ABIGAIL LACY APRN Ot F32.9 MAJOR DEPRESSIVE DISORDER, SINGLE EPISOD 09/26/2017 ABIGAIL LACY APRN Ot I10 ESSENTIAL (PRIMARY) HYPERTENSION 09/26/2017 ABIGAIL LACY APRN Ot K21.9 GASTRO-ESOPHAGEAL REFLUX DISEASE WITHOUT 09/26/2017 ABIGAIL LACY APRN Ot K52.9 NONINFECTIVE GASTROENTERITIS AND COLITIS 09/26/2017 ABIGAIL LACY APRN Ot M17.0 BILATERAL PRIMARY OSTEOARTHRITIS OF KNEE 09/26/2017 ABIGAIL LACY APRN Ot R10.11 RIGHT UPPER QUADRANT PAIN 09/26/2017 ABIGAIL LACY APRN Ot Z79.4 CORRECTION (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 09/26/2017 ABIGAIL LACY APRN Ot Z79.82 BENCH ASSEMBLY INSPECTOR (CURRENT) USE OF ASPIRIN 09/26/2017 ABIGAIL LACY APRN Ot Z87.19 PERSONAL HISTORY OF OTHER DISEASES OF TH 09/26/2017 ABIGAIL LACY APRN Ot Z87.891 PERSONAL HISTORY OF NICOTINE DEPENDENCE 09/26/2017 ABIGAIL LACY APRN Ot Z90.49 ACQUIRED ABSENCE OF OTHER SPECIFIED PART Procedures Code [place] [address] GLUCOSE FINGER STICK 10/15/2012 43338 A1C (IN-HOUSE) 10/15/2012 58284 ROUTINE VENIPUNCTURE 11/07/2012 48240 CBC 11/07/2012 44852 CMP 11/07/2012 9999834 GFR CALC (RESULT ONLY) 11/07/2012 10569 AMYLASE 11/07/2012 16045 LIPASE 11/07/2012 21353 ROUTINE VENIPUNCTURE 12/25/2012 72298 UA LONG DIP 12/25/2012 40509 CBC 12/25/2012 35134 CMP 12/25/2012 [id number] GFR CALC (RESULT ONLY) 12/25/2012 04682 AMYLASE 12/25/2012 95690 LIPASE 12/25/2012 55970 ROUTINE VENIPUNCTURE 01/09/2013 84667 CBC 01/09/2013 39892 CMP 01/09/2013 [id number] GFR CALC (RESULT ONLY) 01/09/2013 38669 AMYLASE 01/09/2013 69111 LIPASE 01/09/2013 28582 US ABDOMINAL ULTRASOUND, COMPLETE 01/10/2013 83909 XRAY KNEE RIGHT 1 OR 2 VIEWS 01/16/2013 OrthopJamil Watt 01/30/2013 23574 A1C (IN-HOUSE) 02/06/2013 91751 JOINT INJECTION- LARGE JOINT (SPECIFY MEDCIN DESCRIPTION) 03/27/2013 OrthopedNam Souza 06/02/2013 Results Test Result Range Capillary blood glucose measurement by glucometer (mass/volume) - 08/03/16 09: 00 Capillary blood glucose measurement by [...] FOR INFLUENZA A AND B ANTIGENS BY [facility] Capillary blood glucose measurement by glucometer (mass/volume) [...] measurement by glucometer (mass/volume) 301 mg/dL 70-110 Complete blood count (CBC) with automated white blood cell (WBC) differential - 09/24/17 13:35 Blood leukocytes automated count (number/volume) 8.4 10*3/uL 4.3-11.0 Blood erythrocytes automated count (number/volume) 4.87 10*6/uL 4.35-5.85 Venous blood hemoglobin measurement (mass/volume) 14.5 g/dL 13.3-17.7 Blood hematocrit (volume fraction) 43 % 40-54 Automated erythrocyte mean corpuscular volume 88 [foz_us] 80-99 Automated erythrocyte mean corpuscular hemoglobin (mass per erythrocyte) 30 pg 25-34 Automated erythrocyte mean corpuscular hemoglobin concentration measurement ( mass/volume) 34 g/dL 32-36 Automated erythrocyte distribution width ratio 13.8 % 10.0-14.5 Automated blood platelet count (count/volume) 144 10*3/uL 130-400 Automated blood platelet mean volume measurement 11.4 [foz_us] 7.4-10.4 Automated blood neutrophils/100 leukocytes 65 % 42-75 Automated blood lymphocytes/100 leukocytes 24 % 12-44 Blood monocytes/100 leukocytes 8 % 0-12 Automated blood eosinophils/100 leukocytes 2 % 0-10 Automated blood basophils/100 leukocytes 1 % 0-10 Blood neutrophils automated count (number/volume) 5.5 10*3 1.8-7.8 Blood lymphocytes automated count (number/volume) 2.0 10*3 1.0-4.0 Blood monocytes automated count (number/volume) 0.7 10*3 0.0-1.0 Automated eosinophil count 0.2 10*3/uL 0.0-0.3 Automated blood basophil count (count/volume) 0.0 10*3/uL 0.0-0.1 Comprehensive metabolic panel - 09/24/17 13:35 Serum or plasma sodium measurement (moles/volume) 135 mmol/L 135-145 Serum or plasma potassium measurement (moles/volume) 4.7 mmol/L 3.6-5.0 Serum or plasma chloride measurement (moles/volume) 97 mmol/L 98-107 Carbon dioxide 27 mmol/L 21-32 Serum or plasma anion gap determination (moles/volume) 11 mmol/L 5-14 Serum or plasma urea nitrogen measurement (mass/volume) 21 mg/dL 7-18 Serum or plasma creatinine measurement (mass/volume) 0.82 mg/dL 0.60-1.30 Serum or plasma urea nitrogen/creatinine mass ratio 26 NRG Serum or plasma creatinine measurement with calculation of estimated glomerular filtration rate > NRG Serum or plasma glucose measurement (mass/volume) 461 mg/dL 70-105 Serum or plasma calcium measurement (mass/volume) 9.4 mg/dL 8.5-10.1 Serum or plasma total bilirubin measurement (mass/volume) 0.4 mg/dL 0.1-1.0 Serum or plasma alkaline phosphatase measurement (enzymatic activity/volume) 157 U/L 40-136 Serum or plasma aspartate aminotransferase measurement (enzymatic activity/ volume) 44 U/L 5-34 Serum or plasma alanine aminotransferase measurement (enzymatic activity/volume ) 62 U/L 0-55 Serum or plasma protein measurement (mass/volume) 6.5 g/dL 6.4-8.2 Serum or plasma albumin measurement (mass/volume) 3.5 g/dL 3.2-4.5 Lipase - 09/24/17 13:35 Lipase 53 U/L 8-78 Urine drug screening test - 09/24/17 14:54 Urine phencyclidine detection by screening method NEGATIVE NEGATIVE Urine benzodiazepines detection by screening method NEGATIVE NEGATIVE Urine cocaine detection NEGATIVE NEGATIVE Urine amphetamines detection by screening method POSITIVE NEGATIVE Urine methamphetamine detection by screening method POSITIVE NEGATIVE Urine cannabinoids detection by screening method NEGATIVE NEGATIVE Urine opiates detection by screening method POSITIVE NEGATIVE Urine barbiturates detection NEGATIVE NEGATIVE Screening urine tricyclic antidepressants detection NEGATIVE NEGATIVE Urine methadone detection by screening method NEGATIVE NEGATIVE Urine oxycodone detection NEGATIVE NEGATIVE Urine propoxyphene detection NEGATIVE NEGATIVE Complete urinalysis with reflex to culture - 09/24/17 14:54 Urine color determination YELLOW NRG Urine clarity [...] count by microscopy (number/high power field ) NONE NRG Bacteria detection in urine sediment by light microscopy NEGATIVE NRG Squamous epithelial cells detection in urine sediment by light microscopy RARE NRG Crystals detection in urine sediment by light microscopy NONE NRG Casts detection in urine sediment by light microscopy NONE NRG Mucus detection in urine sediment by light microscopy NEGATIVE NRG Complete urinalysis with reflex to culture NO NRG Capillary blood glucose measurement by glucometer (mass/volume) - 09/24/17 15: 25 Capillary blood glucose measurement by glucometer (mass/volume) 336 mg/dL 70-110 Capillary blood glucose measurement by glucometer (mass/volume) - 10/06/17 15: 08 Capillary blood glucose measurement by glucometer (mass/volume) 462 mg/dL 70-110 Complete blood count (CBC) with automated white blood cell (WBC) differential - 10/06/17 15:21 Blood leukocytes automated count (number/volume) 7.7 10*3/uL 4.3-11.0 Blood erythrocytes automated count (number/volume) 4.66 10*6/uL 4.35-5.85 Venous blood hemoglobin measurement (mass/volume) 13.8 g/dL 13.3-17.7 Blood hematocrit (volume fraction) 40 % 40-54 Automated erythrocyte mean corpuscular volume 87 [foz_us] 80-99 Automated erythrocyte mean corpuscular hemoglobin (mass per erythrocyte) 30 pg 25-34 Automated erythrocyte mean corpuscular hemoglobin concentration measurement ( mass/volume) 34 g/dL 32-36 Automated erythrocyte distribution width ratio 13.8 % 10.0-14.5 Automated blood platelet count (count/volume) 158 10*3/uL 130-400 Automated blood platelet mean volume measurement 10.5 [foz_us] 7.4-10.4 Automated blood neutrophils/100 leukocytes 67 % 42-75 Automated blood lymphocytes/100 leukocytes 22 % 12-44 Blood monocytes/100 leukocytes 9 % 0-12 Automated blood eosinophils/100 leukocytes 2 % 0-10 Automated blood basophils/100 leukocytes 1 % 0-10 Blood neutrophils automated count (number/volume) 5.1 10*3 1.8-7.8 Blood lymphocytes automated count (number/volume) 1.7 10*3 1.0-4.0 Blood monocytes automated count (number/volume) 0.7 10*3 0.0-1.0 Automated eosinophil count 0.2 10*3/uL 0.0-0.3 Automated blood basophil count (count/volume) 0.0 10*3/uL 0.0-0.1 Comprehensive metabolic panel - 10/06/17 15:21 Serum or plasma sodium measurement (moles/volume) 133 mmol/L 135-145 Serum or plasma potassium measurement (moles/volume) 4.3 mmol/L 3.6-5.0 Serum or plasma chloride measurement (moles/volume) 98 mmol/L 98-107 Carbon dioxide 23 mmol/L 21-32 Serum or plasma anion gap determination (moles/volume) 12 mmol/L 5-14 Serum or plasma urea nitrogen measurement (mass/volume) 11 mg/dL 7-18 Serum or plasma creatinine measurement (mass/volume) 0.84 mg/dL 0.60-1.30 Serum or plasma urea nitrogen/creatinine mass ratio 13 NRG Serum or plasma creatinine measurement with calculation of estimated glomerular filtration rate > NRG Serum or plasma glucose measurement (mass/volume) 517 mg/dL 70-105 Serum or plasma calcium measurement (mass/volume) 9.1 mg/dL 8.5-10.1 Serum or plasma total bilirubin measurement (mass/volume) 0.5 mg/dL 0.1-1.0 Serum or plasma alkaline phosphatase measurement (enzymatic activity/volume) 130 U/L 40-136 Serum or plasma aspartate aminotransferase measurement (enzymatic activity/ volume) 50 U/L 5-34 Serum or plasma alanine aminotransferase measurement (enzymatic activity/volume ) 62 U/L 0-55 Serum or plasma protein measurement (mass/volume) 6.5 g/dL 6.4-8.2 Serum or plasma albumin measurement (mass/volume) 3.4 g/dL 3.2-4.5 Lipase - 10/06/17 15:21 Lipase 33 U/L 8-78 Complete urinalysis with reflex to culture - 10/06/17 16:35 Urine color determination YELLOW NRG Urine clarity determination CLEAR NRG Urine pH measurement by test strip 6 5-9 Specific gravity of urine by test strip 1.020 1.016- 1.022 Urine protein assay by test [...] count by microscopy (number/high power field ) NONE NRG Bacteria detection in urine sediment by light microscopy NONE NRG Squamous epithelial cells detection in urine sediment by light microscopy 2-5 NRG Crystals detection in urine sediment by light microscopy NONE NRG Casts detection in urine sediment by light microscopy NONE NRG Mucus detection in urine sediment by light microscopy NEGATIVE NRG Complete urinalysis with reflex to culture NO NRG Capillary blood glucose measurement by glucometer (mass/volume) - 10/06/17 16: 54 Capillary blood glucose measurement by glucometer (mass/volume) 329 mg/dL 70-110 Encounters ACCT No. Visit Date/Time Discharge Status Pt. Type Provider Facility Loc./Unit Complaint [id number] 05/29/2013 12:23:00 05/29/2013 23:59:59 CLS Outpatient SIVAKUMAR LAUREN DO [id number] 11/28/2012 10:16:00 11/28/2012 23:59:59 CLS Outpatient RIOS NUÑEZ MD [id number] 11/07/2012 08:02:00 11/07/2012 23:59:59 CLS Outpatient RIOS NUÑEZ MD [id number] 10/15/2012 09:34:00 10/15/2012 23:59:59 CLS Outpatient RIOS NUÑEZ MD [id number] 04/15/2013 10:16:00 Document Registration [id number] 03/27/2013 12:19:00 Document Registration [id number] 03/06/2013 09:16:00 Document Registration [id number] 02/27/2013 11:44:00 Document Registration [id number] 02/06/2013 10:50:00 Document Registration [id number] 01/16/2013 14:53:00 Document Registration [id number] 01/09/2013 10:45:00 Document Registration [id number] 12/31/2012 09:51:00 Document Registration [id number] 12/26/2012 07:36:00 Document Registration [id number] 12/25/2012 11:46:00 Document Registration [id number] 12/25/2012 11:46:00 Document Registration [id number] 09/24/2017 13:22:00 09/24/2017 15:41:00 DIS Outpatient ABIGAIL LACY APRN [facility] ER ABD PAIN [id number] 11/03/2016 19:50:00 11/04/2016 06:25:00 DIS Outpatient EDUIN FLOREZ APRN [facility] SLEEP NOCTURNAL HYPOXIA , OBSTRUCTIVE SLEEP APNEA [id number] 11/01/2016 15:18:00 11/01/2016 23:59:59 CLS Outpatient EDUIN FLOREZ APRN [facility] RT ASTHMA,SOB ON EXERTION [id number] 10/08/2016 09:45:00 10/09/2016 13:00:00 DIS Inpatient ROBIN ROGEL DO [facility] 4TH URI/BRONCHOSPASM [id number] 04/12/2016 08:26:00 04/12/2016 12:31:00 DIS Emergency MELANY QURESHI, OSMAN Quintanilla [facility] ER LEFT SIDE FACIAL NUMBNESS/DROOPING [id number] 01/15/2015 08:15:00 01/17/2015 13:15:00 DIS Inpatient MARCELA QURESHI, BOUCHRA Gibson [facility] 4TH BRONCHITIS W/HYPOXIA UNCONTROLLED HYPERGLYCEMIA [id number] 12/27/2014 20:52:00 12/27/2014 22:16:00 DIS Emergency GILBERT GALARZA [facility] ER RT EAR PAIN/BLEEDING [id number] 03/14/2014 18:57:00 03/14/2014 21:23:00 DIS Emergency CHILO QURESHI, EMILY Payne [facility] ER UPPER ABD PAIN [id number] 12/06/2013 12:54:00 12/06/2013 16:00:00 DIS Emergency JOVAN QURESHI, LEA Doyle [facility] ER ELEVATED BLOOD SUGAR, PANCREATIC PAIN [id number] 02/11/2013 13:31:00 02/11/2013 17:30:00 DIS Emergency JESUS QURESHI, SHANE Lundberg [facility] ER ELEVATED BLOOD SUGAR [id number] 01/24/2013 08:29:00 01/24/2013 23:59:59 CLS Outpatient VIN-FLAQUITA QURESHI, DONAL Payne [facility] RAD EPIGASTRIC PAIN,HX OF COMPLICATED PANCREATITIS [id number] 01/20/2013 18:38:00 01/22/2013 09:00:00 DIS Outpatient ANGEL NORMAN MD [facility] CATH CHEST PAIN [id number] 10/06/2017 15:16:00 Document Registration [id number] 10/28/2014 19:52:00 Document Registration [id number] 09/12/2012 08:22:00 Document Registration [id number] 06/24/2012 15:58:00 Document Registration [id number] 06/10/2012 10:51:00 Document Registration [id number] 06/05/2012 20:50:00 Document Registration [id number] 05/15/2012 09:28:00 Document Registration [id number] 03/16/2012 23:30:00 Document Registration [id number] 02/22/2012 20:28:00 Document Registration [id number] 08/21/2011 10:18:00 Document Registration [id number] 06/07/2011 18:53:00 Document Registration [id number] 02/16/2011 10:53:00 Document Registration [id number] 06/16/2010 07:33:00 Document Registration [id number] 02/04/2010 18:57:00 Document Registration [id number] 01/31/2010 18:27:00 Document Registration
== END 2017-10-06 18:07 | disposition home or self-care (01) ==
LOC: EDUNIT# 14:48 → ER 14:49
DX: B37.49 Other urogenital candidiasis (principal); R19.5 Other fecal abnormalities; E78.00 Pure hypercholesterolemia, unspecified; I10 Essential (primary) hypertension; K21.9 Gastro-esophageal reflux disease without esophagitis; E11.65 Type 2 diabetes mellitus with hyperglycemia; E66.01 Morbid (severe) obesity due to excess calories; F20.9 Schizophrenia, unspecified; F32.9 Major depressive disorder, single episode, unspecified; Z82.49 Family history of ischemic heart disease and other diseases of the circulatory system; Z80.42 Family history of malignant neoplasm of prostate; Z79.82 Long term (current) use of aspirin; Z79.4 Long term (current) use of insulin; Z87.891 Personal history of nicotine dependence; Z87.19 Personal history of other diseases of the digestive system; Z90.89 Acquired absence of other organs
CPT/HCPCS: 36415; 80053; 81000; 82962; 83690; 85025

== ENCOUNTER 2017-10-10 12:37 | Emergency (ER) | payer MEDICARE, MEDICAID ==
[~2017-10-10] VITALS: Ht 177.8 cm; Wt 168.3 kg
[~2017-10-10 12:37] MED LIST changes: +FLUC150T PO; +NYST1POW22 MC; +OMEP40CA36 PO; +SUCR1TAB36 PO
--- OUTSIDE RECORDS SUMMARY | 2017-10-10 12:43 | XMS REPORT | Clinical Summary ---
Author Author [facility] Organization [facility] Address Unknown Phone Unavailable Care Team Providers Care Clinical Research Specialist Name Role Phone Jonathan, Paco QURESHI PCP Johann Tobin MD Unavailable Source Comments Some departments are not documenting in the electronic medical record. If you do not see the information that you expected, contact Release of Information in the Health Information Management department at [phone] for further assistance in locating additional records.[facility] Allergies No Known Allergies Current Medications Prescription [...]
--- OUTSIDE RECORDS SUMMARY | 2017-10-10 12:45 | XMS REPORT | Continuity of Care Document ---
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 04/12/2016 OSMAN MOSLEY MD Ot Z79.899 OTHER HALFWAY (CURRENT) DRUG THERAPY 04/12/2016 BRANDON QURESHI, DONAL [...] WEAKNESS 04/13/2016 OSMAN MOSLEY MD Ot Z79.4 HALFWAY (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 04/13/2016 OSMAN MOSLEY MD Ot Z79.899 OTHER HALFWAY (CURRENT) DRUG THERAPY 04/29/2016 OSMAN MOSLEY MD [...] WEAKNESS 04/29/2016 OSMAN MOSLEY MD Ot Z79.4 VENDING MACHINE REFILLER (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 04/29/2016 OSMAN MOSLEY MD Ot Z79.899 OTHER VENDING MACHINE REFILLER (CURRENT) DRUG THERAPY 10/08/2016 DONAL TAYLOR MD [...] DO Ot I25.10 ATHSCL HEART DISEASE OF [place] CORONARY 10/09/2016 ROBIN ROGEL DO Ot J44.1 CHRONIC OBSTRUCTIVE PULMONARY DISEASE W 10/09/2016 ROBIN ROGEL DO Ot J45.902 UNSPECIFIED ASTHMA WITH STATUS ASTHMATIC 10/09/2016 ROBIN ROGEL DO Ot K21.9 GASTRO-ESOPHAGEAL REFLUX DISEASE WITHOUT 10/09/2016 ROBIN ROGEL DO Ot Z79.4 HALFWAY (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 10/09/2016 ROBIN ROGEL DO Ot Z87.891 PERSONAL HISTORY OF NICOTINE DEPENDENCE 11/04/2016 EDUIN FLOREZ APRN Ot G47.33 OBSTRUCTIVE SLEEP APNEA (ADULT) (PEDIATR 11/04/2016 EDUIN FLOREZ APRN Ot G47.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 ALVEOL 11/06/2016 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 G47.33 OBSTRUCTIVE SLEEP APNEA (ADULT) (PEDIATR 11/06/2016 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 G47.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 ALVEOL 11/06/2016 EDUIN FLOREZ APRN Ot G47.33 OBSTRUCTIVE SLEEP APNEA (ADULT) (PEDIATR 11/06/2016 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 G47.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 ALVEOL 11/22/2016 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 J45.909 UNSPECIFIED ASTHMA, UNCOMPLICATED 11/22/2016 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 R06.02 SHORTNESS OF BREATH 09/26/2017 ABIGAIL [...] PAIN 09/26/2017 ABIGAIL LACY APRN Ot Z79.4 HALFWAY (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 09/26/2017 ABIGAIL LACY APRN Ot Z79.82 VENDING MACHINE REFILLER (CURRENT) USE OF ASPIRIN 09/26/2017 ABIGAIL LACY APRN Ot Z87.19 PERSONAL HISTORY OF OTHER DISEASES OF TH 09/26/2017 ABIGAIL LACY APRN Ot Z87.891 PERSONAL HISTORY OF NICOTINE DEPENDENCE 09/26/2017 ABIGAIL LACY APRN Ot Z90.49 ACQUIRED ABSENCE OF OTHER SPECIFIED PART Procedures Code [place] [address] GLUCOSE FINGER STICK 10/15/2012 76196 A1C (IN-HOUSE) 10/15/2012 51301 ROUTINE VENIPUNCTURE 11/07/2012 70905 CBC 11/07/2012 04837 CMP 11/07/2012 [id number] GFR CALC (RESULT ONLY) 11/07/2012 46190 AMYLASE 11/07/2012 92777 LIPASE 11/07/2012 26234 ROUTINE VENIPUNCTURE 12/25/2012 93592 UA LONG DIP 12/25/2012 27954 CBC 12/25/2012 74245 CMP 12/25/2012 [id number] GFR CALC (RESULT ONLY) 12/25/2012 65849 AMYLASE 12/25/2012 85477 LIPASE 12/25/2012 25847 ROUTINE VENIPUNCTURE 01/09/2013 87136 CBC 01/09/2013 82935 CMP 01/09/2013 [id number] GFR CALC (RESULT ONLY) 01/09/2013 90083 AMYLASE 01/09/2013 46308 LIPASE 01/09/2013 46655 US ABDOMINAL ULTRASOUND, COMPLETE 01/10/2013 65874 XRAY KNEE RIGHT 1 OR 2 VIEWS 01/16/2013 OrthopJamil Watt 01/30/2013 27775 A1C (IN-HOUSE) 02/06/2013 28538 JOINT INJECTION- LARGE JOINT (SPECIFY MEDCIN DESCRIPTION) [...] FOR INFLUENZA A AND B ANTIGENS BY [facility] Capillary blood glucose measurement by glucometer (mass/volume) [...] Status Pt. Type Provider Facility Loc./Unit Complaint [id number] 05/29/2013 12:23:00 05/29/2013 23:59:59 CLS Outpatient SIVAKUMAR LAUREN DO [id number] 11/28/2012 10:16:00 11/28/2012 23:59:59 CLS Outpatient RIOS NUÑEZ MD [id number] 11/07/2012 08:02:00 11/07/2012 23:59:59 CLS Outpatient RIOS NUÑEZ MD [id number] 10/15/2012 09:34:00 10/15/2012 23:59:59 CLS Outpatient RIOS NUÑEZ MD [id number] 04/15/2013 10:16:00 Document Registration [id number] 03/27/2013 12:19:00 Document Registration [id number] 03/06/2013 09:16:00 Document Registration [id number] 02/27/2013 11:44:00 Document Registration [id number] 02/06/2013 10:50:00 Document Registration [id number] 01/16/2013 14:53:00 Document Registration [id number] 01/09/2013 10:45:00 Document Registration [id number] 12/31/2012 09:51:00 Document Registration [id number] 12/26/2012 07:36:00 Document Registration [id number] 12/25/2012 11:46:00 Document Registration [id number] 12/25/2012 11:46:00 Document Registration [id number] 09/24/2017 13:22:00 09/24/2017 15:41:00 DIS Outpatient ABIGAIL LACY APRN [facility] ER ABD PAIN [id number] 11/03/2016 19:50:00 11/04/2016 06:25:00 DIS Outpatient EDUIN FLOREZ APRN [facility] SLEEP NOCTURNAL HYPOXIA , OBSTRUCTIVE SLEEP APNEA [id number] 11/01/2016 15:18:00 11/01/2016 23:59:59 CLS Outpatient EDUIN FLOREZ APRN [facility] RT ASTHMA,SOB ON EXERTION [id number] 10/08/2016 09:45:00 10/09/2016 13:00:00 DIS Inpatient ROBIN ROGEL DO [facility] 4TH URI/BRONCHOSPASM [id number] 04/12/2016 08:26:00 04/12/2016 12:31:00 DIS Emergency MELANY QURESHI, OSMAN Quintanilla [facility] ER LEFT SIDE FACIAL NUMBNESS/DROOPING [id number] 01/15/2015 08:15:00 01/17/2015 13:15:00 DIS Inpatient MARCELA QURESHI, BOUCHRA Gibson [facility] 4TH BRONCHITIS W/HYPOXIA UNCONTROLLED HYPERGLYCEMIA [id number] 12/27/2014 20:52:00 12/27/2014 22:16:00 DIS Emergency GILBERT GALARZA [facility] ER RT EAR PAIN/BLEEDING [id number] 03/14/2014 18:57:00 03/14/2014 21:23:00 DIS Emergency CHILO QURESHI, EMILY Payne [facility] ER UPPER ABD PAIN [id number] 12/06/2013 12:54:00 12/06/2013 16:00:00 DIS Emergency JOVAN QURESHI, LEA Doyle [facility] ER ELEVATED BLOOD SUGAR, PANCREATIC PAIN [id number] 02/11/2013 13:31:00 02/11/2013 17:30:00 DIS Emergency JESUS QURESHI, SHANE Lundberg [facility] ER ELEVATED BLOOD SUGAR [id number] 01/24/2013 08:29:00 01/24/2013 23:59:59 CLS Outpatient VIN-FLAQUITA QURESHI, DONAL Payne [facility] RAD EPIGASTRIC PAIN,HX OF COMPLICATED PANCREATITIS [id number] 01/20/2013 18:38:00 01/22/2013 09:00:00 DIS Outpatient ANGEL NORMAN MD [facility] CATH CHEST PAIN [id number] 10/06/2017 15:16:00 Document Registration [id number] 10/28/2014 19:52:00 Document Registration [id number] 09/12/2012 08:22:00 Document Registration [id number] 06/24/2012 15:58:00 Document Registration [id number] 06/10/2012 10:51:00 Document Registration [id number] 06/05/2012 20:50:00 Document Registration [id number] 05/15/2012 09:28:00 Document Registration [id number] 03/16/2012 23:30:00 Document Registration [id number] 02/22/2012 20:28:00 Document Registration [id number] 08/21/2011 10:18:00 Document Registration [id number] 06/07/2011 18:53:00 Document Registration [id number] 02/16/2011 10:53:00 Document Registration [id number] 06/16/2010 07:33:00 Document Registration [id number] 02/04/2010 18:57:00 Document Registration [id number] 01/31/2010 18:27:00 Document Registration
[2017-10-10] MEDS ORDERED: NS IV 1000 ML 1,000 ML IV ONE (12:58)
[2017-10-10] MEDS ORDERED: HYDROmorphone (DILAUDID) 2 MG/ML VIAL IVP STA ×2 (12:58→14:27)
[2017-10-10 13:12] LABS: BASOPHILS % (AUTO) 0 % (0-10); EOSINOPHILS # (AUTO) 0.2 10^3/uL (0.0-0.3); EOSINOPHILS % (AUTO) 2 % (0-10); HEMATOCRIT 42 % (40-54); HEMOGLOBIN 14.4 G/DL (13.3-17.7); LYMPHOCYTES # (AUTO) 1.8 X 10^3 (1.0-4.0); LYMPHOCYTES % (AUTO) 21 % (12-44); MEAN CORPUSCULAR HEMOGLOBIN 30 PG (25-34); MEAN CORPUSCULAR HGB CONC 35 G/DL (32-36); MEAN CORPUSCULAR VOLUME 87 FL (80-99); MEAN PLATELET VOLUME 10.8 FL (7.4-10.4); MONOCYTES # (AUTO) 0.8 X 10^3 (0.0-1.0); MONOCYTES % (AUTO) 9 % (0-12); NEUTROPHILS # (AUTO) 5.6 X 10^3 (1.8-7.8); NEUTROPHILS % (AUTO) 67 % (42-75); PLATELET COUNT 159 10^3/uL (130-400); RED CELL DISTRIBUTION WIDTH 14.2 % (10.0-14.5); WHITE BLOOD COUNT 8.4 10^3/uL (4.3-11.0)
--- NOTE | 2017-10-10 13:20 | ED Abdominal Pain ---
General Chief Complaint: Abdominal/GI Problems Stated Complaint: UPPER ABD PAIN Source of Information: Patient Exam Limitations: No Limitations History of Present Illness Date Seen by Provider: Oct 10, 2017 Time Seen by Provider: 12:55 Initial Comments Here with report of uncontrolled and upper abdominal pain that has been going on for greater than a week. He has been seen twice here for this and had follow -up with his doctor today who sent him back here for further evaluation that reportedly is to be a CT scan or other evaluation for possible worsening ulcer or ulcer involving complete disruption of the stomach. Does have history of cholecystectomy and pancreatitis. Denies nausea or vomiting. Has no pain medicines right now. He is taking his stomach medicines as prescribed. No vomiting currently. Reportedly had bloody stools until several days ago but that has stopped. Timing/Duration: 1 Week, Getting Worse Severity/Quality: Moderate, Severe, Aching, Burning, Sharp Location: Epigastric Radiation: RUQ, Periumbilical Activities at Onset: None Modifying Factors: Worsens With Eating Associated Symptoms: No Back Pain, No Chest Pain, No Fever/Chills, No Shortness of Air, No Weakness Allergies and Home Medications Allergies Coded Allergies: NKANo Known Allergies (Verified Allergy, Unknown, 10/10/05) Home Medications Albuterol Sulfate 1 Puff Puff, 2 PUFF IH Q4H PRN for SHORTNESS OF BREATH, #1 Ref 0 MDI Prescribed by: GENOVEVA WEST on 01/17/15 0932 Amlodipine Besylate 5 Mg Tablet, 5 MG PO DAILY, (Reported) Amoxicillin/Potassium Clav 1 Each Tablet, 1 EACH PO Q12H, (Reported) TAKE FOR 10 DAYS, STARTED 10/06/16 Aspirin 81 Mg Tab.chew, 81 MG PO DAILY, (Reported) Benzonatate 200 Mg Capsule, 200 MG PO TID, (Reported) Fluconazole 150 Mg Tablet, 150 MG PO UD, #2 One tablet now. Repeat in 3 or 4 days Prescribed by: OSMAN JUÁREZ on 10/06/17 1815 Furosemide 40 Mg Tablet, 40 MG PO DAILY, (Reported) Furosemide 40 Mg Tablet, 20 MG PO DAILY 1600, (Reported) Ibuprofen 800 Mg Tablet, 800 MG PO q8h PRN for PAIN, (Reported) Insulin Aspart 100 Unit/1 Ml Insuln.pen, 25 UNIT SQ AC, (Reported) Insulin Glargine,Hum.rec.anlog 300 Unit/3 Ml Insuln.pen, 100 UNITS SQ BID, ( Reported) Lisinopril 40 Mg Tablet, 40 MG PO DAILY, (Reported) Metformin Hcl 850 Mg Tablet, 850 MG PO AC, (Reported) CAN NOT LOCATE FILLED Multivitamin 1 Each Tablet, 1 TAB PO DAILY, (Reported) Nystatin 1 Each Powder.ea., 1 APPLIC MC BID, #1 Sprenkle on affected area twice daily Prescribed by: OSMAN JUÁREZ on 10/06/17 1815 Omeprazole 40 Mg Capsule.dr, 40 MG PO BID, #60 Prescribed by: OSMAN JUÁREZ on 10/06/17 1752 Potassium Chloride 10 Meq Tablet.er, 10 MEQ PO DAILY, (Reported) Prednisone 10 Mg Tab.ds.pk, 10 MG PO DAILY, #42 Take 6 tabs(60mg)daily,decrease by 1 tab(10mg)every other day. Prescribed by: ROBIN ROGEL on 10/09/16 0915 Sucralfate 1 Gm Tablet, 1 GM PO QID, #120 Crush to make slurry with 10 mL water. Take 30 minutes before meals and bed Prescribed by: OSMAN JUÁREZ on 10/06/17 1745 Review of Systems Constitutional: see HPI, No chills, No fever EENTM: No Symptoms Reported Respiratory: No Symptoms Reported Cardiovascular: No Symptoms Reported Gastrointestinal: See HPI, Abdominal Pain, Nausea, Denies Rectal Bleeding ( none currently), Denies Vomiting Genitourinary: No Symptoms Reported Musculoskeletal: no symptoms reported Skin: no symptoms reported Psychiatric/Neurological: No Symptoms Reported All Other Systems Reviewed Negative Unless Noted: Yes Past Vrgnupw-Eflnyq-Oqbqhp Hx Patient Social History Alcohol Use: Denies Use Recreational Drug Use: Yes (meth occasionally) Smoking Status: Former Smoker Former Smoker, Quit: Oct 08, 1996 Recent Foreign Travel: No Contact w/Someone Who Travel: No Recent Hopitalizations: No Immunizations Up To Date Tetanus Booster (TDap): Unknown PED Vaccines UTD: No Date of Pneumonia Vaccine: Oct 08, 2010 Seasonal Allergies Seasonal Allergies: No Surgeries History of Surgeries: Yes (PANCREAS STENT-HAS BEEN REMOVED) Surgeries: Gallbladder, Orthopedic, Tonsillectomy Respiratory History of Respiratory Disorde: No Currently Using BIPAP: No Cardiovascular History of Cardiac Disorders: Yes Cardiac Disorders: Chronic Edema/Swelling, High Cholesterol, Hypertension Neurological History of Neurological Disord: No Reproductive System Hx Reproductive Disorders: No Sexually Transmitted Disease: No HIV/AIDS: No Genitourinary History of Genitourinary Disor: No Gastrointestinal History of Gastrointestinal Di: Yes Gastrointestinal Disorders: Gastroesophageal Reflux, Pancreatitis, Gall Bladder Disease Musculoskeletal History of Musculoskeletal Dis: Yes (BOTH KNEES) Musculoskeletal Disorders: Arthritis Endocrine History of Endocrine Disorders: Yes (Morbid obesity) Endocrine Disorders: Diabetes, Insulin dep HEENT History of HEENT Disorders: No Loss of Vision: Denies Hearing Impairment: Denies Cancer History of Cancer: No Psychosocial History of Psychiatric Problem: Yes Behavioral Health Disorders: Schizophrenia, Depression Integumentary History of Skin or Integumenta: No Blood Transfusions History of Blood Disorders: No Adverse Reaction to a Blood Tr: No Reviewed Nursing Assessment Reviewed/Agree w Nursing PMH: Yes Family Medical History Significant Family History: No Pertinent Family Hx Family Medial History: Alzheimer's disease 19 MOTHER Arthritis 19 FATHER Cardiovascular disease 19 FATHER Dementia 19 MOTHER Hypertension 19 FATHER Myocardial infarction G8 BROTHER Parkinson's disease 19 MOTHER Prostate cancer 19 FATHER Physical Exam Vital Signs VS - Last 72 Hours, by Label 10/10/17 10/10/17 12:45 13:13 Temp 96.9 98.3 Pulse 99 Resp 18 B/P (MAP) 143/84 (103) Pulse Ox 98 O2 Delivery Room Air Capillary Refill : General Appearance: WD/WN, no apparent distress HEENT: PERRL/EOMI, pharynx normal Neck: full range of motion, supple Respiratory: lungs clear, normal breath sounds Cardiovascular: regular rate, rhythm, no murmur Peripheral Pulses: 2+ Dorsalis Pedis (R), 2+ Left Dors-Pedis (L), 2+ Radial Pulses (R), 2+ Radial Pulses (L) Gastrointestinal: non tender, soft Extremities: non-tender, normal inspection, other (swelling of bilateral lower legs 1+) Back: normal inspection, no CVA tenderness, no vertebral tenderness Neurologic/Psychiatric: alert, oriented x 3 Skin: normal color, warm/dry Progress/Results/Core Measures Results/Orders Lab Results Laboratory Tests Test 10/10/17 13:05 10/10/17 13:52 Range/Units White Blood Count 8.4 4.3-11.0 10^3/uL Red Blood Count 4.80 4.35-5.85 10^6/uL Hemoglobin 14.4 13.3-17.7 G/DL Hematocrit 42 40-54 % Mean Corpuscular Volume 87 80-99 FL Mean Corpuscular Hemoglobin 30 25-34 PG Mean Corpuscular Hemoglobin Concent 35 32-36 G/DL Red Cell Distribution Width 14.2 10.0-14.5 % Platelet Count 159 130-400 10^3/uL Mean Platelet Volume 10.8 H 7.4-10.4 FL Neutrophils (%) (Auto) 67 42-75 % Lymphocytes (%) (Auto) 21 12-44 % Monocytes (%) (Auto) 9 0-12 % Eosinophils (%) (Auto) 2 0-10 % Basophils (%) (Auto) 0 0-10 % Neutrophils # (Auto) 5.6 1.8-7.8 X 10^3 Lymphocytes # (Auto) 1.8 1.0-4.0 X 10^3 Monocytes # (Auto) 0.8 0.0-1.0 X 10^3 Eosinophils # (Auto) 0.2 0.0-0.3 10^3/uL Basophils # (Auto) 0.0 0.0-0.1 10^3/uL Sodium Level 137 135-145 MMOL/L Potassium Level 4.0 3.6-5.0 MMOL/L Chloride Level 101 98-107 MMOL/L Carbon Dioxide Level 25 21-32 MMOL/L Anion Gap 11 5-14 MMOL/L Blood Urea Nitrogen 10 7-18 MG/DL Creatinine 0.70 0.60-1.30 MG/DL Estimat Glomerular Filtration Rate > 60 BUN/Creatinine Ratio 14 Glucose Level 233 H 70-105 MG/DL Calcium Level 9.2 8.5-10.1 MG/DL Total Bilirubin 0.6 0.1-1.0 MG/DL Aspartate Amino Transf (AST/SGOT) 71 H 5-34 U/L Alanine Aminotransferase (ALT/SGPT) 75 H 0-55 U/L Alkaline Phosphatase 90 40-136 U/L Total Protein 6.6 6.4-8.2 GM/DL Albumin 3.4 3.2-4.5 GM/DL Amylase Level 24 L 25-125 U/L Lipase 14 8-78 U/L My Orders Orders - SHANE LEE MD Amylase (10/10/17 12:58) Cbc With Automated Diff (10/10/17 12:58) Comprehensive Metabolic Panel (10/10/17 12:58) Lipase (10/10/17 12:58) Saline Lock/Iv-Start (10/10/17 12:58) Ns Iv 1000 Ml (Sodium Chloride 0.9%) (10/10/17 12:58) Hydromorphone Injection (Dilaudid Inject (10/10/17 12:58) Acute Abd Series (10/10/17 13:01) Hydromorphone Injection (Dilaudid Inject (10/10/17 14:27) Medications Given in ED Current Medications Medications Dose Ordered Sig/Shadia Route Start Time Stop Time Status Last Admin Dose Admin Sodium Chloride 1,000 ml @ 0 mls/hr Q0M ONCE IV 10/10/17 12:58 10/10/17 13:00 DC 10/10/17 13:14 1,000 MLS/HR Vital Signs/I&O Vital Sign - Last 12Hours 10/10/17 10/10/17 12:45 13:13 Temp 96.9 98.3 Pulse 99 Resp 18 B/P (MAP) 143/84 (103) Pulse Ox 98 O2 Delivery Room Air Progress Note : Progress Note Seen and evaluated. IV, labs, normal saline 1 L bolus, Dilaudid 1 mg IV and acute abdominal series ordered. 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 Patient verbalize understanding. Monitor patient. 1430: I have talked with Dr. Alvarenga and she will set up prescription at the clinic for pain medicine and has sent a referral to Dr. Mike. I did speak with Dr. Mike and he did go ahead and come over and do a consult in the ER. He is setting him up for upper and lower endoscopy next 10/16/17. Patient is much better with respect to pain currently after pain medicine. No indication of perforation and no indication of infection/blood loss. Overall the outpatient plan seems reasonable the patient and family are comfortable with this. Also there is concerns about gastroparesis due to his uncontrolled diabetes and this was discussed with the patient and may certainly be a component of the problem. Discharged home with return precautions. Patient verbalize understanding instructions and agreement with plan. Diagnostic Imaging Diagonstic Imaging: Xray Plain Films/CT/US/NM/MRI: chest, abdomen Comments VIA [facility]. [place], [place] NAME: SUSSY GATES [facility] REC#: [id number] PT STATUS: REG ER : 1970 PHYSICIAN: SHANE LEE MD ADMIT DATE: 10/10/17/ER Draft Date of Exam:10/10/17 ACUTE ABD SERIES INDICATION: Upper abdominal pain and shortness of breath. TIME OF EXAMINATION: 1:41 PM. FINDINGS: The heart size is stable. The lungs are clear. No free air is identified. There are surgical clips in the right upper quadrant. The bowel gas pattern is nonobstructed. No pathologic calcifications are seen. IMPRESSION: No acute abnormality is detected. PQRS Compliance Statement: One or more of the following individualized dose reduction techniques were utilized for this examination: 1. Automated exposure control 2. Adjustment of the mA and/or kV according to patient size 3. Use of iterative reconstruction technique Dictated on workstation # [id number] Dict: 10/10/17 1333 Trans: 10/10/17 1335 [id number] Interpreted by: GENIA NOVAK MD Electronically signed by: Departure Impression Impression: Primary Impression: Epigastric abdominal pain Additional Impression: Gastroparesis Disposition: HOME, SELF-CARE Condition: Stable Departure-Patient Inst. Decision time for Depature: 14:46 [facility]: [facility] [place]) Primary Care Physician RIAZ ALVARENGA MD (Family) Primary Care Physician Patient Instructions: Acute Abdomen (Belly Pain), Adult (DC), Gastroparesis ( Delayed Gastric Emptying) (DC), Peptic Ulcers (DC) Add. Discharge Instructions: All discharge instructions reviewed with patient and/or family. Voiced understanding. Follow-up with Dr. Mike's office directly after departing here for instructions for the surgery prep that you are to complete prior to next Sunday when you are scheduled to have a colonoscopy and upper endoscopy. Take medications as directed. Follow-up with your DrJulien in a few days for recheck. Return for worse pain, fever, vomiting, weakness, breathing problems or other concerns as needed. You should have prescription at the clinic prescribed by Dr. Alvarenga for pick-up today. Copy Copies To 1: RIAZ ALVARENGA MD Copies To 2: OCSAR MIKE TIMOTHY D MD Oct 10, 2017 13:20
--- NOTE | 2017-10-10 13:35 | Diagnostic Imaging Report ---
INDICATION: Upper abdominal pain and shortness of breath. TIME OF EXAMINATION: 1:41 PM. FINDINGS: The heart size is stable. The lungs are clear. No free air is identified. There are surgical clips in the right upper quadrant. The bowel gas pattern is nonobstructed. No pathologic calcifications are seen. IMPRESSION: No acute abnormality is detected. PQRS Compliance Statement: One or more of the following individualized dose reduction techniques were utilized for this examination: 1. Automated exposure control 2. Adjustment of the mA and/or kV according to patient size 3. Use of iterative reconstruction technique Dictated by: Dictated on workstation # [id number]
[2017-10-10 14:29] LABS: ALANINE AMINOTRANSFERASE 75 U/L (0-55); ALBUMIN 3.4 GM/DL (3.2-4.5); ALKALINE PHOSPHATASE 90 U/L (40-136); AMYLASE 24 U/L (25-125); BILIRUBIN,TOTAL 0.6 MG/DL (0.1-1.0); BUN/CREATININE RATIO 14; CALCIUM 9.2 MG/DL (8.5-10.1); CARBON DIOXIDE 25 MMOL/L (21-32); CHLORIDE 101 MMOL/L (98-107); GFR ESTIMATED > 60; GLUCOSE 233 MG/DL (70-105); LIPASE 14 U/L (8-78); SODIUM 137 MMOL/L (135-145); TOTAL PROTEIN 6.6 GM/DL (6.4-8.2)
[2017-10-10 15:00] VITALS: BP 142/80
--- NOTE | 2017-10-10 20:00 | Consultation ---
History of Present Illness History of Present Illness Patient Consulted On(roro/time) 10/10/17 13:47 Date Seen by Provider: Oct 10, 2017 Time Seen by Provider: 13:47 History of Present Illness seen and evaluated in emergency dept. consult requested by Dr. Toribio for epigastric abdominal pain. Patient is a 47 year old male who has been having abdominal pain in the epigastric region for over 2 weeks. The ta has continued to worsen and is a sharp burning pain. It is in the epigastric region and radiates around right upper quadrant. Patient has history of pancreatitis and had cholecystectomy. P He is on omeprazole and sucralfate and not had any improvement. Nothing he has tried is not helping and food makes worse. He is not having any nausea or vomiting, fever sweats chills shortness of breath or chest pain. He had abdominal x rays today which are unremarkable. He had a CT abd/pelvis on 09/24 demonstrating fluid filled stomach and loops of bowel that could represent enteritis. Patient is a diabetic and blood sugars are not controlled. He does report he has had some blood in stools before, but not at this time. Allergies and Home Medications Allergies Coded Allergies: NKANo Known Allergies (Verified Allergy, Unknown, 10/10/05) Home Medications Albuterol Sulfate 1 Puff Puff, 2 PUFF IH Q4H PRN for SHORTNESS OF BREATH, #1 Ref 0 MDI Prescribed by: GENOVEVA WEST on 01/17/15 0932 Amlodipine Besylate 5 Mg Tablet, 5 MG PO DAILY, (Reported) Amoxicillin/Potassium Clav 1 Each Tablet, 1 EACH PO Q12H, (Reported) TAKE FOR 10 DAYS, STARTED 10/06/16 Aspirin 81 Mg Tab.chew, 81 MG PO DAILY, (Reported) Benzonatate 200 Mg Capsule, 200 MG PO TID, (Reported) Fluconazole 150 Mg Tablet, 150 MG PO UD, #2 One tablet now. Repeat in 3 or 4 days Prescribed by: OSMAN JUÁREZ on 10/06/17 1815 Furosemide 40 Mg Tablet, 40 MG PO DAILY, (Reported) Furosemide 40 Mg Tablet, 20 MG PO DAILY 1600, (Reported) Ibuprofen 800 Mg Tablet, 800 MG PO q8h PRN for PAIN, (Reported) Insulin Aspart 100 Unit/1 Ml Insuln.pen, 25 UNIT SQ AC, (Reported) Insulin Glargine,Hum.rec.anlog 300 Unit/3 Ml Insuln.pen, 100 UNITS SQ BID, ( Reported) Lisinopril 40 Mg Tablet, 40 MG PO DAILY, (Reported) Metformin Hcl 850 Mg Tablet, 850 MG PO AC, (Reported) CAN NOT LOCATE FILLED Multivitamin 1 Each Tablet, 1 TAB PO DAILY, (Reported) Nystatin 1 Each Powder.ea., 1 APPLIC MC BID, #1 Sprenkle on affected area twice daily Prescribed by: OSMAN JUÁREZ on 10/06/17 1815 Omeprazole 40 Mg Capsule.dr, 40 MG PO BID, #60 Prescribed by: OSMAN JUÁREZ on 10/06/17 1752 Potassium Chloride 10 Meq Tablet.er, 10 MEQ PO DAILY, (Reported) Prednisone 10 Mg Tab.ds.pk, 10 MG PO DAILY, #42 Take 6 tabs(60mg)daily,decrease by 1 tab(10mg)every other day. Prescribed by: ROBIN ROGEL on 10/09/16 0915 Sucralfate 1 Gm Tablet, 1 GM PO QID, #120 Crush to make slurry with 10 mL water. Take 30 minutes before meals and bed Prescribed by: OSMAN JUÁREZ on 10/06/17 1745 Past Helympc-Ztxzyb-Lukwlp Hx Patient Social History Alcohol Use: Denies Use Recreational Drug Use: Yes (meth occasionally) Smoking Status: Former Smoker Former Smoker, Quit: Oct 08, 1996 Recent Foreign Travel: No Contact w/Someone Who Travel: No Recent Infectious Disease Expo: No Recent Hopitalizations: No Immunizations Up To Date Tetanus Booster (TDap): Unknown PED Vaccines UTD: No Date of Pneumonia Vaccine: Oct 08, 2010 Seasonal Allergies Seasonal Allergies: No Surgeries History of Surgeries: Yes (PANCREAS STENT-HAS BEEN REMOVED) Surgeries: Gallbladder, Orthopedic, Tonsillectomy Respiratory History of Respiratory Disorde: No Cardiovascular History of Cardiac Disorders: Yes Cardiac Disorders: Chronic Edema/Swelling, High Cholesterol, Hypertension Neurological History of Neurological Disord: No Reproductive System Hx Reproductive Disorders: No Sexually Transmitted Disease: No HIV/AIDS: No Genitourinary History of Genitourinary Disor: No Gastrointestinal History of Gastrointestinal Di: Yes Gastrointestinal Disorders: Gastroesophageal Reflux, Pancreatitis, Gall Bladder Disease Musculoskeletal History of Musculoskeletal Dis: Yes (BOTH KNEES) Musculoskeletal Disorders: Arthritis Endocrine History of Endocrine Disorders: Yes (Morbid obesity) Endocrine Disorders: Diabetes, Insulin dep HEENT History of HEENT Disorders: No Loss of Vision: Denies Hearing Impairment: Denies Cancer History of Cancer: No Psychosocial History of Psychiatric Problem: Yes Behavioral Health Disorders: Schizophrenia, Depression Integumentary History of Skin or Integumenta: No Blood Transfusions History of Blood Disorders: No Adverse Reaction to a Blood Tr: No Reviewed Nursing Assessment Reviewed/Agree w Nursing PMH: Yes Family Medical History Significant Family History: No Pertinent Family Hx Family Medial History: Alzheimer's disease 19 MOTHER Arthritis 19 FATHER Cardiovascular disease 19 FATHER Dementia 19 MOTHER Hypertension 19 FATHER Myocardial infarction G8 BROTHER Parkinson's disease 19 MOTHER Prostate cancer 19 FATHER No Family History of: AIDS Abdominal aortic aneurysm [place]'s disease Alcoholism Aphasia Asthma Cancer of mouth Cataracts Colon cancer Completed stroke Congenital disease Congenital heart disease Coronary thrombosis Cystic fibrosis Deafness or hearing loss Diabetes mellitus Drug abuse Dysphasia Fibrocystic disease of breast Gastroenteritis Glaucoma Headache disorder Hypercholesterolemia Infertility Kidney disease Neoplasm Not obtainable due to adoption Osteoporosis Psychosocial problem Respiratory disorder Seizure disorder Severe allergy Thyroid disease Tuberculosis Visual disorder Review of Systems-General Constitutional: no symptoms reported EENTM: no symptoms reported Respiratory: no symptoms reported Cardiovascular: no symptoms reported Gastrointestinal: see HPI Genitourinary: no symptoms reported Musculoskeletal: no symptoms reported Skin: no symptoms reported Psychiatric/Neurological: No Symptoms Reported Physical Exam-General Problems Physical Exam Vital Signs Vital Sign - Last 12Hours 10/10/17 12:45 Temp 96.9 Pulse 99 Resp 18 B/P (MAP) 143/84 (103) Pulse Ox 98 O2 Delivery Room Air Capillary Refill : Less Than 3 Seconds General Appearance: no apparent distress HEENT: PERRL/EOMI Neck: supple Respiratory: normal breath sounds, no respiratory distress, no accessory muscle use Cardiovascular: regular rate, rhythm Gastrointestinal: No guarding, No rebound, tenderness (epigastric region), other (obese) Rectal: deferred Back: normal inspection, no CVA tenderness Extremities: non-tender, normal inspection Neurologic/Psychiatric: no motor/sensory deficits, alert, normal mood/affect, oriented x 3 Skin: warm/dry Lymphatic: no adenopathy Data Review Labs Laboratory Tests 10/10/17 13:05: White Blood Count 8.4, Red Blood Count 4.80, Hemoglobin 14.4, Hematocrit 42, Mean Corpuscular Volume 87, Mean Corpuscular Hemoglobin 30, Mean Corpuscular Hemoglobin Concent 35, Red Cell Distribution Width 14.2, Platelet Count 159, Mean Platelet Volume 10.8H, Neutrophils (%) (Auto) 67, Lymphocytes (%) (Auto) 21 , Monocytes (%) (Auto) 9, Eosinophils (%) (Auto) 2, Basophils (%) (Auto) 0, Neutrophils # (Auto) 5.6, Lymphocytes # (Auto) 1.8, Monocytes # (Auto) 0.8, Eosinophils # (Auto) 0.2, Basophils # (Auto) 0.0 10/10/17 13:52: Sodium Level 137, Potassium Level 4.0, Chloride Level 101, Carbon Dioxide Level 25, Anion Gap 11, Blood Urea Nitrogen 10, Creatinine 0.70, Estimat Glomerular Filtration Rate > 60, BUN/Creatinine Ratio 14, Glucose Level 233H, Calcium Level 9.2, Total Bilirubin 0.6, Aspartate Amino Transf (AST/SGOT) 71H, Alanine Aminotransferase (ALT/SGPT) 75H, Alkaline Phosphatase 90, Total Protein 6.6, Albumin 3.4, Amylase Level 24L, Lipase 14 Assessment/Plan Assessment/Plan Assessment/Plan epigastric abdominal pain uncontrolled dm with possible gastroparesis blood in stool Patient with persistent abdominal pain in epigastric region. The stomach is fluid filled and slight dilated which could be due to gastroparesis secondary to his DM. He could also have gastric ulcer or gastritis. He has had recent blood in his stools. I recommended doing an EGD and colonoscopy to further evaluate. He and family understands risks and benefits of procedure and wish to proceed. He is scheduled for next Sunday. We discussed staying on liquid diet and continuing on current medication. Patient explained prep instructions and he is going to my office to get the paper instructions. If worsening he should return to ER. Patient and family questions answered. OSCAR MIKE DO Oct 10, 2017 20:00
== END 2017-10-10 14:56 | disposition home or self-care (01) ==
LOC: EDUNIT# 12:37 → ER 12:39
DX: K31.84 Gastroparesis (principal); E66.01 Morbid (severe) obesity due to excess calories; E11.9 Type 2 diabetes mellitus without complications; E78.00 Pure hypercholesterolemia, unspecified; F32.9 Major depressive disorder, single episode, unspecified; F20.9 Schizophrenia, unspecified; I10 Essential (primary) hypertension; K21.9 Gastro-esophageal reflux disease without esophagitis; F15.10 Other stimulant abuse, uncomplicated; Z87.19 Personal history of other diseases of the digestive system; Z90.89 Acquired absence of other organs; Z68.43 Body mass index [BMI] 50.0-59.9, adult; Z82.49 Family history of ischemic heart disease and other diseases of the circulatory system; Z79.82 Long term (current) use of aspirin; Z85.46 Personal history of malignant neoplasm of prostate; Z79.4 Long term (current) use of insulin; Z79.52 Long term (current) use of systemic steroids; Z87.891 Personal history of nicotine dependence
CPT/HCPCS: 36415; 74022; 80053; 82150; 83690; 85025; 96361; 96374; 96376

== ENCOUNTER 2017-10-12 05:39 | Outpatient (CLI) | payer MEDICARE, MEDICAID ==
[~2017-10-12] VITALS: Ht 177.8 cm; Wt 168.5 kg
[2017-10-12] MEDS ORDERED: PALI819S IM (11:19)
[2017-10-12] MEDS ORDERED: INSU100I14 SQ (11:19)
[2017-10-12] MEDS ORDERED: INSU100I34 SQ (11:19)
[2017-10-12] MEDS ORDERED: BENZ0.5T3 PO (11:19)
[2017-10-12] MEDS ORDERED: CETI10TA17 PO (11:19)
[2017-10-12] MEDS ORDERED: HALO2TAB PO (11:19)
[2017-10-12] MEDS ORDERED: METF850T2 PO (11:19)
[2017-10-12] MEDS ORDERED: MULT-35 PO (11:19)
[2017-10-12] MEDS ORDERED: OXYC-202 PO (11:19)
== END 2017-10-12 11:36 ==
LOC: PREOP 05:39
PROVIDERS: ATTEND Surgery
DX: Z01.818 Encounter for other preprocedural examination (principal); R10.13 Epigastric pain; K92.1 Melena

== ENCOUNTER → 2017-10-16 | Day surgery (SDC) | payer MEDICARE, MEDICAID ==
[~2017-10-16] VITALS: Ht 177.8 cm; Wt 168.5 kg
[~2017-10-16] MED LIST changes: +BENZ0.5T3 PO; +CETI10TA17 PO; +HALO2TAB PO; +HURRICAINE EXT TUBE (BENZOCAINE) XX PRN; +INSU100I14 SQ; +INSU100I34 SQ; +LACTATED RINGERS 1,000 ML IV STA; +METF850T2 PO; +MULT-35 PO; +OXYC-202 PO; +PALI819S IM
[2017-10-16 08:00] VITALS: BP 151/78
--- OUTSIDE RECORDS SUMMARY | 2017-10-16 08:01 | XMS REPORT | Clinical Summary ---
Author Author [facility] Organization [facility] Address Unknown Phone Unavailable Care Team Providers Care Adjunct Psychology Faculty Member Name Role Phone Jonathan, Paco QURESHI PCP Johann Tobin MD Unavailable Source Comments Some departments are not documenting in the electronic medical record. If you do not see the information that you expected, contact Release of Information in the Health Information Management department at [phone] for further assistance in locating additional records.[facility] Allergies No Known Allergies Current Medications Prescription [...]
--- OUTSIDE RECORDS SUMMARY | 2017-10-16 08:04 | XMS REPORT | Continuity of Care Document ---
Author Author Formerly [facility], [facility] Address Unknown Phone Unavailable Allergies Active Description Code Type Severity Reaction Onset Reported/Identified Relationship to Patient Clinical Status Yes NKANo Known Allergies NKA Miscellaneous Allergy Unknown N/A 10/10/2005 Yes metformin Drug Allergy 06/14/2010 Yes metformin Drug Allergy N/A N/A 06/14/2010 Yes No Known Drug Allergies [id number] Drug Allergy Unknown N/A 10/12/2017 Medications There is no data. Problems Date [...] DO 789.00 ABDOMINAL PAIN UNSPECIFIED SITE 06/14/2010 JOAQUIN QURESHI RIOS 250.02 DIABETES II UNCONTROLLED 06/14/2010 JOAQUIN [...] LAUREN DO 250.02 DIABETES II UNCONTROLLED 06/14/2010 SIVAKUMAR LAUREN DO 716.90 ARTHRITIS/ ARTHROPATHY, UNSPECIFIED 06/16/2010 Ot 836.2 [...] 11/29/2010 790.6 OTHER ABNORMAL BLOOD CHEMISTRY 11/29/2010 LAUREN DO, SIVAKUMAR K 466.0 ACUTE BRONCHITIS 11/29/2010 LAUREN DO, SIVAKUMAR K 790.6 OTHER ABNORMAL BLOOD CHEMISTRY 02/16/2011 [...] QURESHI, RIOS V67.9 UNSPECIFIED FOLLOW-UP EXAMINATION 11/07/2012 RIOS NUÑEZ MD V67.9 UNSPECIFIED FOLLOW-UP EXAMINATION 11/07/2012 V67.9 UNSPECIFIED [...] CHONDROMALACIA OF [place] 01/16/2013 SIVAKUMAR LAUREN DO 717.7 CHONDROMALACIA OF [place] 01/22/2013 ANGEL NORMAN [...] HYPERTENSION 03/06/2013 401.1 BENIGN ESSENTIAL HYPERTENSION 03/06/2013 SIVAKUMAR LAUREN DO 401.1 BENIGN ESSENTIAL HYPERTENSION 12/06/2013 LEA ALDANA MD Ot 250.02 DIAB DAILY WO COMPL, TYPE II OR UNSPEC TY 12/06/2013 LEA ALDANA MD Ot 789.00 ABDOMINAL PAIN, UNSPECIFIED SITE 03/14/2014 EMILY WOO MD Ot 272.0 PURE HYPERCHOLESTEROLEM 03/14/2014 EMILY WOO MD Ot 278.00 OBESITY, NOS 03/14/2014 EMILY WOO MD Ot 295.90 SCHIZOPHRENIA NOS-UNSPEC 03/14/2014 EMILY WOO MD Ot 311 DEPRESSIVE DISORDER NEC 03/14/2014 EMIYL WOO MD Ot 401.9 HYPERTENSION NOS 03/14/2014 EMILY WOO MD Ot 577.0 ACUTE PANCREATITIS 03/14/2014 EMLIY WOO MD Ot 577.1 CHRONIC PANCREATITIS 03/14/2014 EMILY WOO MD Ot 786.50 CHEST PAIN NOS 03/14/2014 EMILY WOO MD Ot V58.66 LONG-TERM (CURRENT) USE OF ASPIRIN 03/14/2014 EMILY WOO MD Ot V58.67 LONG-TERM (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 03/14/2014 EMILY WOO MD Ot V58.69 OT MED,LT,CURRENT USE 03/14/2014 EMILY WOO MD Ot [...] 01/14/2015 DONAL TAYLOR MD Ot 789.2 01/14/2015 DONLA TAYLOR MD Ot 571.8 01/14/2015 DONAL TAYLOR [...] HISTORY OF TOBACCO USE 01/17/2015 BOUCHRA MEDRANO MD, Ot V58.67 LONG-TERM (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 [...] BRANDON QURESHI, DONAL Payne Ot 571.8 03/03/2015 DONAL TAYLOR MD Ot 789.1 03/03/2015 DONAL TAYLOR MD Ot 789.2 05/03/2015 BRANDON QURESHI, DONAL Payne [...] Ot M54.2 CERVICALGIA 04/12/2016 OSMAN MOSLEY MD T Ot R07.89 OTHER CHEST PAIN 04/12/2016 OSMAN MOSLEY MD Ot R20.0 ANESTHESIA OF SKIN 04/12/2016 OSMAN MOSLEY MD Ot R29.810 FACIAL WEAKNESS 04/12/2016 OSMAN MOSLEY MD Ot Z79.4 PENITENTIARY (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 04/12/2016 OSMAN MOSLEY MD Ot Z79.899 OTHER SURVEY INSTRUMENT OPERATOR (CURRENT) DRUG THERAPY 04/12/2016 BRANDON QURESHI, DONAL [...] UNSPECIFIED, LEFT EAR 04/13/2016 OSMAN MOSLEY MD T Ot M54.2 CERVICALGIA 04/13/2016 OSMAN MOSLEY MD T Ot R07.89 OTHER CHEST PAIN 04/13/2016 OSMAN MOSLEY MD Ot R20.0 ANESTHESIA OF SKIN 04/13/2016 OSMAN MOSLEY MD Ot R29.810 FACIAL WEAKNESS 04/13/2016 OSMAN MOSLEY MD Ot Z79.4 SURVEY INSTRUMENT OPERATOR (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 04/13/2016 OSMAN MOSLEY MD Ot Z79.899 OTHER PENITENTIARY (CURRENT) DRUG THERAPY 04/29/2016 OSMAN MOSLEY MD [...] WEAKNESS 04/29/2016 OSMAN MOSLEY MD Ot Z79.4 PENITENTIARY (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 04/29/2016 OSMAN MOSLEY MD Ot Z79.899 OTHER SURVEY INSTRUMENT OPERATOR (CURRENT) DRUG THERAPY 10/08/2016 DONAL TAYLOR MD [...] DO Ot I25.10 ATHSCL HEART DISEASE OF [place] CORONARY 10/09/2016 ROBIN ROGEL DO Ot J44.1 CHRONIC OBSTRUCTIVE PULMONARY DISEASE W 10/09/2016 ROBIN ROGEL DO Ot J45.902 UNSPECIFIED ASTHMA WITH STATUS ASTHMATIC 10/09/2016 ROBIN ROGEL DO Ot K21.9 GASTRO-ESOPHAGEAL REFLUX DISEASE WITHOUT 10/09/2016 ROBIN ROGEL DO Ot Z79.4 PENITENTIARY (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 10/09/2016 ROBIN ROGEL DO Ot Z87.891 PERSONAL HISTORY OF NICOTINE DEPENDENCE 11/04/2016 EDUIN FLOREZ CUSTOMER CONTACT REPRESENTATIVE Ot G47.33 OBSTRUCTIVE SLEEP APNEA (ADULT) (PEDIATR 11/04/2016 EDUIN FLOREZ CUSTOMER CONTACT REPRESENTATIVE Ot G47.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 ALVEOL 11/06/2016 EDUIN FLOREZ CUSTOMER CONTACT REPRESENTATIVE Ot G47.33 OBSTRUCTIVE SLEEP APNEA (ADULT) (PEDIATR 11/06/2016 EDUIN FLOREZ E CUSTOMER CONTACT REPRESENTATIVE Ot G47.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 ALVEOL 11/06/2016 EDUIN FLOREZ CUSTOMER CONTACT REPRESENTATIVE Ot G47.33 OBSTRUCTIVE SLEEP APNEA (ADULT) (PEDIATR 11/06/2016 EDUIN FLOREZ E CUSTOMER CONTACT REPRESENTATIVE Ot G47.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 ALVEOL 11/22/2016 EDUIN FLOREZ CUSTOMER CONTACT REPRESENTATIVE Ot J45.909 UNSPECIFIED ASTHMA, UNCOMPLICATED 11/22/2016 EDUIN FLOREZ E CUSTOMER CONTACT REPRESENTATIVE Ot R06.02 SHORTNESS OF BREATH 09/26/2017 ABIGAIL [...] PAIN 09/26/2017 ABIGAIL LACY APRN Ot Z79.4 PENITENTIARY (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 09/26/2017 ABIGAIL LACY APRN Ot Z79.82 SURVEY INSTRUMENT OPERATOR (CURRENT) USE OF ASPIRIN 09/26/2017 ABIGAIL LACY APRN Ot Z87.19 PERSONAL HISTORY OF OTHER DISEASES OF TH 09/26/2017 ABIGAIL LACY APRN Ot Z87.891 PERSONAL HISTORY OF NICOTINE DEPENDENCE 09/26/2017 ABIGAIL LACY APRN Ot Z90.49 ACQUIRED ABSENCE OF OTHER SPECIFIED PART 10/09/2017 MELANY QURESHI, OSMAN Quintanilla Ot B37.49 OTHER UROGENITAL CANDIDIASIS 10/09/2017 MELANY QURESHI, OSMAN Quintanilla Ot E11.65 TYPE 2 DIABETES MELLITUS WITH HYPERGLYCE 10/09/2017 OSMAN MOSLEY MD Ot E66.01 MORBID (SEVERE) OBESITY DUE TO EXCESS CA 10/09/2017 MELANY QURESHI, OSMAN Quintanilla Ot E78.00 PURE HYPERCHOLESTEROLEMIA, UNSPECIFIED 10/09/2017 OSMAN MOSLEY MD Ot F20.9 SCHIZOPHRENIA, UNSPECIFIED 10/09/2017 OSMAN MOSLEY MD Ot F32.9 MAJOR DEPRESSIVE DISORDER, SINGLE EPISOD 10/09/2017 OSMAN MOSLEY MD Ot I10 ESSENTIAL (PRIMARY) HYPERTENSION 10/09/2017 OSMAN MOSLEY MD Ot K21.9 GASTRO-ESOPHAGEAL REFLUX DISEASE WITHOUT 10/09/2017 OSMAN MOSLEY MD Ot K92.1 MELENA 10/09/2017 OSMAN MOSLEY MD Ot R19.5 OTHER FECAL ABNORMALITIES 10/09/2017 OSMAN MOSLEY MD Ot Z79.4 SURVEY INSTRUMENT OPERATOR (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 10/09/2017 OSMAN MOSLEY MD Ot Z79.82 PENITENTIARY (CURRENT) USE OF ASPIRIN 10/09/2017 OSMAN MOSLEY MD Ot Z80.42 FAMILY HISTORY OF MALIGNANT NEOPLASM OF 10/09/2017 OSMAN MOSLEY MD, Ot Z82.49 FAMILY HX OF ISCHEM HEART DIS AND OTH DI 10/09/2017 OSMAN MOSLEY MD, Ot Z87.19 PERSONAL HISTORY OF OTHER DISEASES OF TH 10/09/2017 OSMAN MOSLEY MD, Ot Z87.891 PERSONAL HISTORY OF NICOTINE DEPENDENCE 10/09/2017 OSMAN MOSLEY MD, Ot Z90.89 ACQUIRED ABSENCE OF OTHER ORGANS 10/12/2017 SHANE LEE MD Ot E11.9 TYPE 2 DIABETES MELLITUS WITHOUT COMPLIC 10/12/2017 SHANE LEE MD, Ot E66.01 MORBID (SEVERE) OBESITY DUE TO EXCESS CA 10/12/2017 SHANE LEE MD Ot E78.00 PURE HYPERCHOLESTEROLEMIA, UNSPECIFIED 10/12/2017 SHANE LEE MD Ot F15.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 ABUSE, UNCOMPLICATED 10/12/2017 SHANE LEE MD, Ot F20.9 SCHIZOPHRENIA, UNSPECIFIED 10/12/2017 SHANE LEE MD, Ot F32.9 MAJOR DEPRESSIVE DISORDER, SINGLE EPISOD 10/12/2017 SHANE LEE MD Ot I10 ESSENTIAL (PRIMARY) HYPERTENSION 10/12/2017 SHANE LEE MD Ot K21.9 GASTRO-ESOPHAGEAL REFLUX DISEASE WITHOUT 10/12/2017 SHANE LEE MD Ot K31.84 GASTROPARESIS 10/12/2017 SHANE LEE MD Ot R10.13 EPIGASTRIC PAIN 10/12/2017 SHANE LEE MD Ot Z68.43 BODY MASS INDEX (BMI) 50-59.9 , ADULT 10/12/2017 SHANE LEE MD, Ot Z79.4 SURVEY INSTRUMENT OPERATOR (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 10/12/2017 SHANE LEE MD Ot Z79.52 PENITENTIARY (CURRENT) USE OF SYSTEMIC STER 10/12/2017 SHANE LEE MD, Ot Z79.82 SURVEY INSTRUMENT OPERATOR (CURRENT) USE OF ASPIRIN 10/12/2017 SHANE LEE MD, Ot Z82.49 FAMILY HX OF ISCHEM HEART DIS AND OTH DI 10/12/2017 SHANE LEE MD Ot Z85.46 PERSONAL HISTORY OF MALIGNANT NEOPLASM O 10/12/2017 SHANE LEE MD Ot Z87.19 PERSONAL HISTORY OF OTHER DISEASES OF TH 10/12/2017 SHANE LEE MD Ot Z87.891 PERSONAL HISTORY OF NICOTINE DEPENDENCE 10/12/2017 SHANE LEE MD Ot Z90.89 ACQUIRED ABSENCE OF OTHER ORGANS 10/15/2017 OSCAR MIKE DO Ot K92.1 MELENA 10/15/2017 OSCAR MIKE DO Ot R10.13 EPIGASTRIC PAIN 10/15/2017 OSCAR MIKE DO Ot Z01.818 ENCOUNTER FOR OTHER PREPROCEDURAL EXAMIN Procedures Code [place] [address] GLUCOSE FINGER STICK 10/15/2012 19315 A1C (IN-HOUSE) 10/15/2012 61689 ROUTINE VENIPUNCTURE 11/07/2012 63036 CBC 11/07/2012 45043 CMP 11/07/2012 7866420 GFR CALC (RESULT ONLY) 11/07/2012 89036 AMYLASE 11/07/2012 07796 LIPASE 11/07/2012 64722 ROUTINE VENIPUNCTURE 12/25/2012 76077 UA LONG DIP 12/25/2012 45996 CBC 12/25/2012 22302 CMP 12/25/2012 7143709 GFR CALC (RESULT ONLY) 12/25/2012 45181 AMYLASE 12/25/2012 49405 LIPASE 12/25/2012 88199 ROUTINE VENIPUNCTURE 01/09/2013 38213 CBC 01/09/2013 18599 CMP 01/09/2013 8021833 GFR CALC (RESULT ONLY) 01/09/2013 64886 AMYLASE 01/09/2013 60340 LIPASE 01/09/2013 05280 US ABDOMINAL ULTRASOUND, COMPLETE 01/10/2013 62717 XRAY KNEE RIGHT 1 OR 2 VIEWS 01/16/2013 Jamil Covarrubias 01/30/2013 09834 A1C (IN-HOUSE) 02/06/2013 05102 JOINT INJECTION- LARGE JOINT (SPECIFY MEDCIN DESCRIPTION) 03/27/2013 Nam Stinson 06/02/2013 Results Test Result Range Capillary blood [...] FOR INFLUENZA A AND B ANTIGENS BY [facility] Capillary blood glucose measurement by [...] measurement by glucometer (mass/volume) 329 mg/dL 70-110 Complete blood count (CBC) with automated white blood cell (WBC) differential - 10/10/17 13:05 Blood leukocytes automated count (number/volume) 8.4 10*3/uL 4.3-11.0 Blood erythrocytes automated count (number/volume) 4.80 10*6/uL 4.35-5.85 Venous blood hemoglobin measurement (mass/volume) 14.4 g/dL 13.3-17.7 Blood hematocrit (volume fraction) 42 % 40-54 Automated erythrocyte mean corpuscular volume 87 [foz_us] 80-99 Automated erythrocyte mean corpuscular hemoglobin (mass per erythrocyte) 30 pg 25-34 Automated erythrocyte mean corpuscular hemoglobin concentration measurement ( mass/volume) 35 g/dL 32-36 Automated erythrocyte distribution width ratio 14.2 % 10.0-14.5 Automated blood platelet count (count/volume) 159 10*3/uL 130-400 Automated blood platelet mean volume measurement 10.8 [foz_us] 7.4-10.4 Automated blood neutrophils/100 leukocytes 67 % 42-75 Automated blood lymphocytes/100 leukocytes 21 % 12-44 Blood monocytes/100 leukocytes 9 % 0-12 Automated blood eosinophils/100 leukocytes 2 % 0-10 Automated blood basophils/100 leukocytes 0 % 0-10 Blood neutrophils automated count (number/volume) 5.6 10*3 1.8-7.8 Blood lymphocytes automated count (number/volume) 1.8 10*3 1.0-4.0 Blood monocytes automated count (number/volume) 0.8 10*3 0.0-1.0 Automated eosinophil count 0.2 10*3/uL 0.0-0.3 Automated blood basophil count (count/volume) 0.0 10*3/uL 0.0-0.1 Comprehensive metabolic panel - 10/10/17 13:52 Serum or plasma sodium measurement (moles/volume) 137 mmol/L 135-145 Serum or plasma potassium measurement (moles/volume) 4.0 mmol/L 3.6-5.0 Serum or plasma chloride measurement (moles/volume) 101 mmol/L 98-107 Carbon dioxide 25 mmol/L 21-32 Serum or plasma anion gap determination (moles/volume) 11 mmol/L 5-14 Serum or plasma urea nitrogen measurement (mass/volume) 10 mg/dL 7-18 Serum or plasma creatinine measurement (mass/volume) 0.70 mg/dL 0.60-1.30 Serum or plasma urea nitrogen/creatinine mass ratio 14 NRG Serum or plasma creatinine measurement with calculation of estimated glomerular filtration rate > NRG Serum or plasma glucose measurement (mass/volume) 233 mg/dL 70-105 Serum or plasma calcium measurement (mass/volume) 9.2 mg/dL 8.5-10.1 Serum or plasma total bilirubin measurement (mass/volume) 0.6 mg/dL 0.1-1.0 Serum or plasma alkaline phosphatase measurement (enzymatic activity/volume) 90 U/L 40-136 Serum or plasma aspartate aminotransferase measurement (enzymatic activity/ volume) 71 U/L 5-34 Serum or plasma alanine aminotransferase measurement (enzymatic activity/volume ) 75 U/L 0-55 Serum or plasma protein measurement (mass/volume) 6.6 g/dL 6.4-8.2 Serum or plasma albumin measurement (mass/volume) 3.4 g/dL 3.2-4.5 Serum or plasma amylase measurement (enzymatic activity/volume) - 10/10/17 13: 52 Serum or plasma amylase measurement (enzymatic activity/volume) 24 U /L 25-125 Lipase - 10/10/17 13:52 Lipase 14 U/L 8-78 Encounters ACCT No. Visit Date/Time Discharge Status Pt. Type Provider Facility Loc./Unit Complaint [id number] 05/29/2013 12:23:00 05/29/2013 23:59:59 CLS Outpatient SIVAKUMAR LAUREN DO [id number] 11/28/2012 10:16:00 11/28/2012 23:59:59 CLS Outpatient RIOS NUÑEZ MD [id number] 11/07/2012 08:02:00 11/07/2012 23:59:59 CLS Outpatient RIOS NUÑEZ MD [id number] 10/15/2012 09:34:00 10/15/2012 23:59:59 CLS Outpatient RIOS NUÑEZ MD [id number] 04/15/2013 10:16:00 Document Registration [id number] 03/27/2013 12:19:00 Document Registration [id number] 03/06/2013 09:16:00 Document Registration [id number] 02/27/2013 11:44:00 Document Registration [id number] 02/06/2013 10:50:00 Document Registration [id number] 01/16/2013 14:53:00 Document Registration [id number] 01/09/2013 10:45:00 Document Registration [id number] 12/31/2012 09:51:00 Document Registration [id number] 12/26/2012 07:36:00 Document Registration [id number] 12/25/2012 11:46:00 Document Registration [id number] 12/25/2012 11:46:00 Document Registration [id number] 10/12/2017 05:39:00 10/12/2017 11:36:00 DIS Outpatient OSCAR MIKE DO [facility] PREOP COLONOSCOPY/EGD [id number] 10/10/2017 12:39:00 10/10/2017 14:56:00 DIS Outpatient JESUS QURESHI, SHANE Lundberg [facility] ER UPPER ABD PAIN [id number] 10/06/2017 14:49:00 10/06/2017 18:07:00 DIS Outpatient MELANY QURESHI, OSMAN Quintanilla [facility] ER BLOOD IN URINE/STOOL , HIGH BLOOD SUGAR [id number] 09/24/2017 13:22:00 09/24/2017 15:41:00 DIS Outpatient ABIGAIL LACY APRN [facility] ER ABD PAIN [id number] 11/03/2016 19:50:00 11/04/2016 06:25:00 DIS Outpatient EDUIN FLOREZ APRN [facility] SLEEP NOCTURNAL HYPOXIA , OBSTRUCTIVE SLEEP APNEA [id number] 11/01/2016 15:18:00 11/01/2016 23:59:59 CLS Outpatient EDUIN FLOREZ APRN [facility] RT ASTHMA,SOB ON EXERTION [id number] 10/08/2016 09:45:00 10/09/2016 13:00:00 DIS Inpatient ROBIN ROGEL DO [facility] 4TH URI/BRONCHOSPASM [id number] 04/12/2016 08:26:00 04/12/2016 12:31:00 DIS Emergency MELANY QURESHI, OSMAN Quintanilla [facility] ER LEFT SIDE FACIAL NUMBNESS/DROOPING [id number] 01/15/2015 08:15:00 01/17/2015 13:15:00 DIS Inpatient MARCELA QURESHI, BOUCHRA Gibson [facility] 4TH BRONCHITIS W/HYPOXIA UNCONTROLLED HYPERGLYCEMIA [id number] 12/27/2014 20:52:00 12/27/2014 22:16:00 DIS Emergency GILBERT GALARZA [facility] ER RT EAR PAIN/BLEEDING [id number] 03/14/2014 18:57:00 03/14/2014 21:23:00 DIS Emergency EMILY WOO MD [facility] ER UPPER ABD PAIN [id number] 12/06/2013 12:54:00 12/06/2013 16:00:00 DIS Emergency LEA ALDANA MD [facility] ER ELEVATED BLOOD SUGAR, PANCREATIC PAIN [id number] 02/11/2013 13:31:00 02/11/2013 17:30:00 DIS Emergency SHANE LEE MD [facility] ER ELEVATED BLOOD SUGAR [id number] 01/24/2013 08:29:00 01/24/2013 23:59:59 CLS Outpatient BRANDON QURESHI, DONAL Payne [facility] RAD EPIGASTRIC PAIN,HX OF COMPLICATED PANCREATITIS [id number] 01/20/2013 18:38:00 01/22/2013 09:00:00 DIS Outpatient ANGEL NORMAN MD [facility] CATH CHEST PAIN [id number] 10/16/2017 13:15:00 PEN Preadmit OSCAR MIKE DO [facility] ENDO EPIGASTRIC ABD PAIN/BLOOD IN STOOLS [id number] 10/28/2014 19:52:00 Document Registration [id number] 09/12/2012 08:22:00 Document Registration [id number] 06/24/2012 15:58:00 Document Registration [id number] 06/10/2012 10:51:00 Document Registration [id number] 06/05/2012 20:50:00 Document Registration [id number] 05/15/2012 09:28:00 Document Registration [id number] 03/16/2012 23:30:00 Document Registration [id number] 02/22/2012 20:28:00 Document Registration [id number] 08/21/2011 10:18:00 Document Registration [id number] 06/07/2011 18:53:00 Document Registration [id number] 02/16/2011 10:53:00 Document Registration [id number] 06/16/2010 07:33:00 Document Registration [id number] 02/04/2010 18:57:00 Document Registration [id number] 01/31/2010 18:27:00 Document Registration
[2017-10-16 09:16] LABS: AMPHETAMINE SCREEN, URINE POSITIVE (NEGATIVE); BARBITURATE SCREEN URINE NEGATIVE (NEGATIVE); BENZODIAZEPINES SCREEN URINE NEGATIVE (NEGATIVE); CANNABINOID SCREEN, URINE NEGATIVE (NEGATIVE); COCAINE SCREEN URINE NEGATIVE (NEGATIVE); METHADONE STAT NEGATIVE (NEGATIVE); METHAMPHETAMINE SCREEN URINE S POSITIVE (NEGATIVE); OPIATE SCREEN URINE NEGATIVE (NEGATIVE); OXYCODONE STAT NEGATIVE (NEGATIVE); PROPOXYPHENE STAT NEGATIVE (NEGATIVE); TRICYCLIC ANTIDEPRESSANTS SCRE NEGATIVE (NEGATIVE)
== END | disposition home or self-care (01) ==
LOC: ENDO 07:57
PROVIDERS: ATTEND Surgery
DX: R10.13 Epigastric pain (principal); K92.1 Melena; E11.43 Type 2 diabetes mellitus with diabetic autonomic (poly)neuropathy; I10 Essential (primary) hypertension; G47.33 Obstructive sleep apnea (adult) (pediatric); E66.01 Morbid (severe) obesity due to excess calories; Z68.43 Body mass index [BMI] 50.0-59.9, adult; F15.90 Other stimulant use, unspecified, uncomplicated; Z53.8 Procedure and treatment not carried out for other reasons; Z79.4 Long term (current) use of insulin
CPT/HCPCS: 80306; 82962; 93005

== ENCOUNTER 2017-11-06 09:56 | Outpatient (CLI) | payer MEDICARE, MEDICAID ==
[~2017-11-06] VITALS: Ht 177.8 cm; Wt 168.3 kg
[~2017-11-06 09:56] MED LIST changes: -HURRICAINE EXT TUBE (BENZOCAINE) XX PRN; -LACTATED RINGERS 1,000 ML IV STA
== END 2017-11-06 13:38 ==
LOC: PREOP 09:56
PROVIDERS: ATTEND Surgery
DX: Z01.818 Encounter for other preprocedural examination (principal); R10.13 Epigastric pain; K92.1 Melena

== ENCOUNTER 2018-01-08 12:32 | Emergency (ER) | payer MEDICARE, MEDICAID ==
[~2018-01-08] VITALS: Ht 175.3 cm; Wt 176.4 kg
[~2018-01-08 12:32] MED LIST changes: -BENZ0.5T3 PO; +BENZ0.5T42 PO
--- OUTSIDE RECORDS SUMMARY | 2018-01-08 12:40 | XMS REPORT | Clinical Summary ---
Author Author [facility] Organization [facility] Address Unknown Phone Unavailable Care Team Providers Care Kitman Name Role Phone Jonathan, Paco QURESHI PCP Johann Tobin MD Unavailable Source Comments Some departments are not documenting in the electronic medical record. If you do not see the information that you expected, contact Release of Information in the Health Information Management department at [phone] for further assistance in locating additional records.[facility] Allergies No Known Allergies Current Medications [...] PHYSICAL (COMPREHENSIVE) 1977 EXAM PERTUSSIS VACCINE 1981 HIV SCREENING 1985 TETANUS VACCINE 1987 INFLUENZA VACCINE 06/10/2018 Results Not on filefrom Last 3 Months
--- OUTSIDE RECORDS SUMMARY | 2018-01-08 12:41 | XMS REPORT ---
Author Author TIARA KIRBY [facility] [place] [facility] Address [address] [place] [address] Care Team Providers Care Polisher Aluminum Name Role Phone TIARA KIRBY Unavailable PROBLEMS Type Condition ICD9-CM Code QQQ34-FO Code Onset Dates Condition Status SNOMED Code Problem Benign essential hypertension I10 Active 9758976 Problem Type 2 diabetes mellitus with other diabetic neurological complication E11.49 Active 27028072 Problem Type 2 diabetes mellitus with unspecified complications E11.8 Active 27012595 Problem BMI 50.0-59.9, adult Z68.43 Active 782454459 Problem Morbid (severe) obesity due to excess calories E66.01 Active 806791323 Problem 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 Active 241681961 Problem Essential hypertension I10 Active 13848117 ALLERGIES No Known Allergies ENCOUNTERS Encounter Location Date Diagnosis [facility] [id number] [place] [address] January, [facility] [id number] [place] [address]- [address] January, [facility] [id number] [place] [address] Dec, BMI 50.0-59.9, adult Z68.43 [facility] [id number] [place] [address]68- [address] Dec, [facility] [address] [address] Dec, [facility] [id number] [place] [address]- [address] Dec, [facility] [address] [address] Nov, [place] [id number] [place] [address] Nov, [address] [address] Oct, senior care current use of insulin Z79.4 ; Type 2 diabetes mellitus with other diabetic neurological complication E11.49 ; Swelling of both lower extremities M79.89 ; Essential hypertension I10 ; BMI 50.0-59.9, adult Z68.43 and Blurry vision H53.[address] [address] Sep, Right upper quadrant pain R10.11 and Blood in stool K92.1 [facility] [place] [address] [address] Sep, Asymptomatic microscopic hematuria R31.21 ; Glucose found in urine on examination R81 and BMI 50.0-59.9, adult Z68.[address] [address] 12 Sep, 2017 Type 2 diabetes mellitus with unspecified complications E11.8 [facility] [place] [address] [address] Aug, Type 2 diabetes mellitus with unspecified complications E11.8 ; Benign essential hypertension I10 ; Cough R05 ; Acute bronchitis, unspecified organism J20.9 ; Other viral agents as the cause of diseases classified elsewhere B97.89 and Morbid (severe) obesity due to excess calories E66.01 [facility] [place] [address] [id number] [place] [address] May, Acute seasonal allergic rhinitis, unspecified trigger J30.2 and Candidiasis of penis B37.42 [place] [id number] [place] [address] Dec, [address] [address] Dec, [place] [id number] [place] [address] 10 Oct, 2014 [facility] [address] [id number] [place] [address] Oct, [facility] [place] [facility] [address] [id number] [place] [address] Dec, [facility] [place] [facility] [address] [id number] [place] [address] Dec, [facility] [place] [facility] [address] [id number] [place] [address] Dec, [facility] [place] [facility] [address] [id number] [place] [address] Dec, [facility] [place] [facility] [address] [id number] [place] [address] 5472 Dec, [facility] [place] [facility] [address] [id number] [place] [address] Dec, [facility] [place] [facility] [address] [id number] [place] [address] Nov, [facility] [place] [facility] [address] [id number] [place] [address] 47[address] Nov, [facility] [place] [facility] [address] [id number] [place] [address]- [address]68 23 May, 2013 [facility] [place] [facility] [address] [id number] [place] [address] 19 May, 2013 [facility] [place] [facility] [address] [id number] [place] [address] 388[address] 19 May, 2013 [facility] [place] [facility] [address] [id number] [place] [address] 17 May, 2013 [facility] [place] [facility] [address] [id number] [place] [address] 6002 12 May, 2013 [facility] [place] [facility] [address] [id number] [place] [address] Apr, [facility] [address] [id number] [place] [id number] Mar, [facility] [address] [id number] [place] [address] Mar, [facility] [address] [id number] [place] [address]- 4[address] Mar, [facility] [address] [id number] [place] [address]- 1[address] Mar, [facility] [address] [id number] [place] [address]- [address] Feb, [facility] [address] [id number] [place] [address] 8758 Feb, [facility] [address] [id number] [place] [address]- 9867 Feb, [facility] [address] [id number] [place] [address]- 3699 Feb, [facility] [address] [id number] [place] [address] 6037 January, [facility] [address] [id number] [place] [address]- 0861 January, [facility] [address] [id number] [place] [address]- 5836 January, [facility] [address] [id number] [address] January, [facility] [address] [id number] [place] [address]- 7239 January, [facility] [place] [facility] [address] [id number] [place] [address]- 4826 January, [facility] [address] [id number] [place] [address]- 2546 January, [facility] [address] [id number] [address] January, [facility] [address] [id number] [place] [address]- 0027 January, [facility] [address] [id number] [place] [address]- 2532 Dec, [facility] [address] [id number] [place] [address]- 9842 Dec, [facility] [address] [id number] [place] [address]- 49[address] 17 Dec, 2012 [facility] [address] [id number] [place] [address]- 8868 Dec, [facility] [address] [id number] [place] [address]- 6790 Dec, [facility] [address] [id number] [place] [address]- 8930 Dec, [facility] [address] [id number] [place] [address]- 8795 Dec, [facility] [address] [id number] [place] [address]- 2711 Nov, [facility] [address] [id number] [place] [address]- 37[address] Nov, [facility] [address] [id number] [place] [address]- 35[address] Nov, [facility] [address] [id number] [place] [address]- 2214 Oct, [facility] [address] [id number] [place] [address]- 76[address] Oct, [facility] [place] [facility] [address] [id number] [place] [address]- 3189 Oct, [facility] [address] [facility] [id number] [address] Oct, [facility] [address] [facility] [id number], [place] [address] Jul, [facility] [address] [facility] [id number][place] [address]- [address] 14 Jun, 2010 [facility] [address] [facility] [id number], [place] [address]46 12 Jun, 2010 [facility] [address] [facility] [id number][place] [address] 13 May, 2010 IMMUNIZATIONS Vaccine Route Administration Date Status DEXAMETHASONE 4MG/ML (PER 1 MG) IM Intramuscular Jun 01, 2017 Administered DEPO MEDROL 40 MG/ML IM Intramuscular Jun 01, 2017 Administered SOCIAL HISTORY Never Assessed REASON FOR VISIT Cough and congestion. productive cough that has brown tinged sputum. [id number] PLAN OF CARE Activity Details Follow Up prn Reason: VITAL SIGNS Height 69 in 2017-06-01 Weight 347.6 lbs 2017-06-01 Temperature 97.9 degrees Fahrenheit 2017-06-01 Heart Rate 88 bpm 2017-06-01 Respiratory Rate 22 2017-06-01 BMI 51.33 kg/m2 2017-06-01 Blood pressure systolic 134 mmHg 2017-06-01 Blood pressure diastolic 84 mmHg 2017-06-01 MEDICATIONS Medication Instructions Dosage Frequency Start Date End Date Duration Status HydrOXYzine HCl 25 mg 1 tablet by Oral route 2 times per day PRN Feb Active Fluconazole 150 MG Orally Take one tablet today and repeat in 72 hours as directed May, May, 4 days Active Risperdal 1 mg 1 tablet by Oral route 1 time per day 1mg in AM 3mg at bedtime. Feb, Active Ibuprofen 800 mg take 1 tablet (800 mg) by oral route 3 times per day with food May, Active Flonase 50 MCG/ACT Nasally Once a day 1 spray in each nostril 24h May, 30 day(s) Active Lisinopril-Hydrochlorothiazide 20-25 mg take 1 tablet by Oral route 2 times per day Feb, Active Metoprolol Succinate 25 mg 1 tablet by Oral route 1 time per day Feb Active Nystatin 306636 UNIT/GM Externally Twice a day 1 application to affected area 12h May, May, 5 days Active Zyrtec Allergy 10 MG Orally Once a day 1 tablet 24h May, Jun, 30 day(s) Active Lantus SoloStar 100 unit/mL (3 mL) take 54 unit by Subcutaneous route 1 time per day Dec, Active Omeprazole 20 mg take 1 capsule (20 mg) by oral route once daily before a meal Feb, Active Oxycodone-Acetaminophen 5-325 mg 1 tablet by Oral route every 6 hours January, Active Cymbalta 60 mg take 1 capsules by Oral route 1 time per day Feb, Active Aspirin 81 mg take 1 tablet (81 mg) by oral route once daily Feb, Active metformin 850 mg take 1 tablet (850 mg) by oral route 3 times per day with meals Feb, Active NovoLog Flexpen 100 unit/mL inject 25 Units by Subcutaneous route as per insulin sliding scale protocol 3 times per day before meals Feb, Active Multivitamin by Oral route once daily. Oct, Active RESULTS No Results PROCEDURES Procedure Date Ordered Result Body Site DEPO MEDROL 40 MG/ML Jun 01, 2017 THER/PROPH/DIAG INJ, SC/IM Jun 01, 2017 [facility] VISIT ESTABLISHED PATIENT Jun 01, 2017 DEXAMETHASONE 4MG/ML (PER 1 MG) Jun 01, 2017 INSTRUCTIONS MEDICATIONS ADMINISTERED No Known Medications MEDICAL (GENERAL) HISTORY Type Description Date Medical History bleeding ulcer Medical History type 2 diabetes Medical History stents in pancreas Medical History hypertension Medical History schizophrenia Surgical History bilateral knees...scopes Surgical History stent placed in pancreas Surgical History stent removed form pancreas Hospitalization History post surgeries Hospitalization History [facility] [place]- Abd pain 09/24/2017
--- OUTSIDE RECORDS SUMMARY | 2018-01-08 12:43 | XMS REPORT | Continuity of Care Document ---
Author Author [facility] Address Unknown Phone Unavailable Allergies Active Description Code Type Severity Reaction Onset Reported/Identified Relationship to Patient Clinical Status Yes NKANo Known Allergies NKA Miscellaneous Allergy Unknown N/A 10/10/2005 Yes metformin Drug Allergy 06/14/2010 Yes metformin Drug Allergy N/A N/A 06/14/2010 Yes No Known Drug Allergies [id number] Drug Allergy Unknown N/A 10/12/2017 Medications There [...] WEAKNESS 04/12/2016 OSMAN MOSLEY MD Ot Z79.4 RETIREMENT (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 04/12/2016 OSMAN MOSLEY MD Ot Z79.899 OTHER BACK TENDER CYLINDER (CURRENT) DRUG THERAPY 04/12/2016 BRANDON QURESHI, DONAL [...] WEAKNESS 04/13/2016 OSMAN MOSLEY MD Ot Z79.4 BACK TENDER CYLINDER (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 04/13/2016 OSMAN MOSLEY MD Ot Z79.899 OTHER RETIREMENT (CURRENT) DRUG THERAPY 04/29/2016 OSMAN MOSLEY MD [...] WEAKNESS 04/29/2016 OSMAN MOSLEY MD Ot Z79.4 RETIREMENT (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 04/29/2016 OSMAN MOSLEY MD Ot Z79.899 OTHER BACK TENDER CYLINDER (CURRENT) DRUG THERAPY 10/08/2016 DONAL TAYLOR MD [...] DO Ot I25.10 ATHSCL HEART DISEASE OF [place] CORONARY 10/09/2016 ROBIN ROGEL DO Ot J44.1 CHRONIC OBSTRUCTIVE PULMONARY DISEASE W 10/09/2016 ROBIN ROGEL DO Ot J45.902 UNSPECIFIED ASTHMA WITH STATUS ASTHMATIC 10/09/2016 ROBIN ROGEL DO Ot K21.9 GASTRO-ESOPHAGEAL REFLUX DISEASE WITHOUT 10/09/2016 ROBIN ROGEL DO Ot Z79.4 RETIREMENT (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 10/09/2016 ROBIN ROGEL DO Ot Z87.891 PERSONAL HISTORY OF NICOTINE DEPENDENCE 11/04/2016 EDUIN FLOREZ SCRUBBER MACHINE TENDER Ot G47.33 OBSTRUCTIVE SLEEP APNEA (ADULT) (PEDIATR 11/04/2016 EDUIN FLOREZ SCRUBBER MACHINE TENDER Ot G47.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 ALVEOL 11/06/2016 EDUIN FLOREZ SCRUBBER MACHINE TENDER Ot G47.33 OBSTRUCTIVE SLEEP APNEA (ADULT) (PEDIATR 11/06/2016 EDUIN FLOREZ E SCRUBBER MACHINE TENDER Ot G47.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 ALVEOL 11/06/2016 EDUIN FLOREZ SCRUBBER MACHINE TENDER Ot G47.33 OBSTRUCTIVE SLEEP APNEA (ADULT) (PEDIATR 11/06/2016 EDUIN FLOREZ E SCRUBBER MACHINE TENDER Ot G47.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 ALVEOL 11/22/2016 EDUIN FLOREZ SCRUBBER MACHINE TENDER Ot J45.909 UNSPECIFIED ASTHMA, UNCOMPLICATED 11/22/2016 EDUIN FLOREZ E SCRUBBER MACHINE TENDER Ot R06.02 SHORTNESS OF BREATH 09/24/2017 ABIGAIL LACY APRN Ot E11.65 TYPE 2 DIABETES MELLITUS WITH HYPERGLYCE 09/24/2017 ABIGAIL LACY APRN Ot E78.00 PURE HYPERCHOLESTEROLEMIA, UNSPECIFIED 09/24/2017 ABIGAIL LACY APRN Ot F20.9 SCHIZOPHRENIA, UNSPECIFIED 09/24/2017 ABIGAIL LACY APRN Ot F32.9 MAJOR DEPRESSIVE DISORDER, SINGLE EPISOD 09/24/2017 ABIGAIL LACY APRN Ot I10 ESSENTIAL (PRIMARY) HYPERTENSION 09/24/2017 ABIGAIL LACY APRN Ot K21.9 GASTRO-ESOPHAGEAL REFLUX DISEASE WITHOUT 09/24/2017 ABIGAIL LACY APRN Ot K52.9 NONINFECTIVE GASTROENTERITIS AND COLITIS 09/24/2017 ABIGAIL LACY APRN Ot M17.0 BILATERAL PRIMARY OSTEOARTHRITIS OF KNEE 09/24/2017 ABIGAIL LACY APRN Ot R10.11 RIGHT UPPER QUADRANT PAIN 09/24/2017 ABIGAIL LACY APRN Ot Z79.4 RETIREMENT (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 09/24/2017 ABIGAIL LACY APRN Ot Z79.82 BACK TENDER CYLINDER (CURRENT) USE OF ASPIRIN 09/24/2017 ABIGAIL LACY APRN Ot Z87.19 PERSONAL HISTORY OF OTHER DISEASES OF 09/24/2017 ABIGAIL LACY APRN Ot Z87.891 PERSONAL HISTORY OF NICOTINE DEPENDENCE 09/24/2017 ABIGAIL LACY APRN Ot Z90.49 ACQUIRED ABSENCE OF OTHER SPECIFIED PART 09/26/2017 ABIGAIL LACY APRN Ot E11.65 TYPE [...] PAIN 09/26/2017 ABIGAIL LACY APRN Ot Z79.4 BACK TENDER CYLINDER (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 09/26/2017 ABIGAIL LACY APRN Ot Z79.82 RETIREMENT (CURRENT) USE OF ASPIRIN 09/26/2017 ABIGAIL LACY APRN Ot Z87.19 PERSONAL HISTORY OF OTHER DISEASES OF 09/26/2017 ABIGAIL LACY APRN Ot Z87.891 PERSONAL HISTORY OF NICOTINE DEPENDENCE 09/26/2017 LACYABIGAIL MCMILLAN Arthur MACEDO Ot Z90.49 ACQUIRED ABSENCE OF OTHER SPECIFIED PART 10/06/2017 OSMAN MOSLEY MD, Ot B37.49 OTHER UROGENITAL CANDIDIASIS 10/06/2017 OSMAN MOSLEY MD Ot E11.65 TYPE 2 DIABETES MELLITUS WITH HYPERGLYCE 10/06/2017 OSMAN MOSLEY MD Ot E66.01 MORBID (SEVERE) OBESITY DUE TO EXCESS CA 10/06/2017 OSMAN MOSLEY MD Ot E78.00 PURE HYPERCHOLESTEROLEMIA, UNSPECIFIED 10/06/2017 OSMAN MOSLEY MD, Ot F20.9 SCHIZOPHRENIA, UNSPECIFIED 10/06/2017 OSMAN MOSLEY MD, Ot F32.9 MAJOR DEPRESSIVE DISORDER, SINGLE EPISOD 10/06/2017 OSMAN MOSLEY MD, Ot I10 ESSENTIAL (PRIMARY) HYPERTENSION 10/06/2017 OSMAN MOSLEY MD, Ot K21.9 GASTRO-ESOPHAGEAL REFLUX DISEASE WITHOUT 10/06/2017 OSMAN MOSLEY MD Ot K92.1 MELENA 10/06/2017 OSMAN MOSLEY MD Ot R19.5 OTHER FECAL ABNORMALITIES 10/06/2017 OSMAN MOSLEY MD, Ot Z79.4 BACK TENDER CYLINDER (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 10/06/2017 OSMAN MOSLEY MD Ot Z79.82 BACK TENDER CYLINDER (CURRENT) USE OF ASPIRIN 10/06/2017 OSMAN MOSLEY MD, Ot Z80.42 FAMILY HISTORY OF MALIGNANT NEOPLASM OF 10/06/2017 OSMAN MOSLEY MD, Ot Z82.49 FAMILY HX OF ISCHEM HEART DIS AND OTH DI 10/06/2017 OSMAN MOSLEY MD Ot Z87.19 PERSONAL HISTORY OF OTHER DISEASES OF TH 10/06/2017 OSMAN MOSLEY MD Ot Z87.891 PERSONAL HISTORY OF NICOTINE DEPENDENCE 10/06/2017 OSMAN MOSLEY MD Ot Z90.89 ACQUIRED ABSENCE OF OTHER ORGANS 10/09/2017 OSMAN MOSLEY MD, Ot B37.49 OTHER UROGENITAL CANDIDIASIS 10/09/2017 OSMAN MOSLEY MD, Ot E11.65 TYPE 2 DIABETES MELLITUS WITH HYPERGLYCE 10/09/2017 OSMAN MOSLEY MD Ot E66.01 MORBID (SEVERE) OBESITY DUE TO EXCESS CA 10/09/2017 OSMAN MOSLEY MD, Ot E78.00 PURE HYPERCHOLESTEROLEMIA, UNSPECIFIED 10/09/2017 OSMAN MOSLEY MD, Ot F20.9 SCHIZOPHRENIA, UNSPECIFIED 10/09/2017 OSMAN MOSLEY MD, Ot F32.9 MAJOR DEPRESSIVE DISORDER, SINGLE EPISOD 10/09/2017 OSMAN MOSLEY MD, Ot I10 ESSENTIAL (PRIMARY) HYPERTENSION 10/09/2017 OSMAN MOSLEY MD, Ot K21.9 GASTRO-ESOPHAGEAL REFLUX DISEASE WITHOUT 10/09/2017 OSMAN MOSLEY MD, Ot K92.1 MELENA 10/09/2017 OSMAN MOSLEY MD, Ot R19.5 OTHER FECAL ABNORMALITIES 10/09/2017 OSMAN MOSLEY MD Ot Z79.4 BACK TENDER CYLINDER (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 10/09/2017 OSMAN MOSLEY MD, Ot Z79.82 BACK TENDER CYLINDER (CURRENT) USE OF ASPIRIN 10/09/2017 OSMAN MOSLEY MD, Ot Z80.42 FAMILY HISTORY OF MALIGNANT NEOPLASM OF 10/09/2017 OSMAN MOSLEY MD, Ot Z82.49 FAMILY HX OF ISCHEM HEART DIS AND OTH DI 10/09/2017 OSMAN MOSLEY MD Ot Z87.19 PERSONAL HISTORY OF OTHER DISEASES OF TH 10/09/2017 OSMAN MOSLEY MD, Ot Z87.891 PERSONAL HISTORY OF NICOTINE DEPENDENCE 10/09/2017 OSMAN MOSLEY MD Ot Z90.89 ACQUIRED ABSENCE OF OTHER ORGANS 10/10/2017 SHANE LEE MD, Ot E11.9 TYPE 2 DIABETES MELLITUS WITHOUT COMPLIC 10/10/2017 SHANE LEE MD, Ot E66.01 MORBID (SEVERE) OBESITY DUE TO EXCESS CA 10/10/2017 SHANE LEE MD, Ot E78.00 PURE HYPERCHOLESTEROLEMIA, UNSPECIFIED 10/10/2017 SHANE LEE MD, Ot F15.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 ABUSE, UNCOMPLICATED 10/10/2017 SHANE LEE MD Ot F20.9 SCHIZOPHRENIA, UNSPECIFIED 10/10/2017 SHANE LEE MD Ot F32.9 MAJOR DEPRESSIVE DISORDER, SINGLE EPISOD 10/10/2017 SHANE LEE MD Ot I10 ESSENTIAL (PRIMARY) HYPERTENSION 10/10/2017 SHANE LEE MD Ot K21.9 GASTRO-ESOPHAGEAL REFLUX DISEASE WITHOUT 10/10/2017 SHANE LEE MD Ot K31.84 GASTROPARESIS 10/10/2017 SHANE LEE MD, Ot R10.13 EPIGASTRIC PAIN 10/10/2017 SHANE LEE MD, Ot Z68.43 BODY MASS INDEX (BMI) 50-59.9 , ADULT 10/10/2017 SHANE LEE MD, Ot Z79.4 RETIREMENT (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 10/10/2017 SHANE LEE MD, Ot Z79.52 RETIREMENT (CURRENT) USE OF SYSTEMIC STER 10/10/2017 SHANE LEE MD, Ot Z79.82 RETIREMENT (CURRENT) USE OF ASPIRIN 10/10/2017 SHANE LEE MD Ot Z82.49 FAMILY HX OF ISCHEM HEART DIS AND OTH DI 10/10/2017 SHANE LEE MD, Ot Z85.46 PERSONAL HISTORY OF MALIGNANT NEOPLASM O 10/10/2017 SHANE LEE MD Ot Z87.19 PERSONAL HISTORY OF OTHER DISEASES OF TH 10/10/2017 SHANE LEE MD, Ot Z87.891 PERSONAL HISTORY OF NICOTINE DEPENDENCE 10/10/2017 SHANE LEE MD Ot Z90.89 ACQUIRED ABSENCE OF OTHER ORGANS 10/12/2017 SHANE LEE MD Ot E11.9 TYPE 2 DIABETES MELLITUS WITHOUT COMPLIC 10/12/2017 SHANE LEE MD Ot E66.01 MORBID (SEVERE) OBESITY DUE TO EXCESS CA 10/12/2017 SHANE LEE MD Ot E78.00 PURE HYPERCHOLESTEROLEMIA, UNSPECIFIED 10/12/2017 SHANE LEE MD Ot F15.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 ABUSE, UNCOMPLICATED 10/12/2017 SHANE LEE MD Ot F20.9 SCHIZOPHRENIA, UNSPECIFIED 10/12/2017 SHANE LEE MD, Ot F32.9 MAJOR DEPRESSIVE DISORDER, SINGLE EPISOD 10/12/2017 SHANE LEE MD Ot I10 ESSENTIAL (PRIMARY) HYPERTENSION 10/12/2017 SHANE LEE MD, Ot K21.9 GASTRO-ESOPHAGEAL REFLUX DISEASE WITHOUT 10/12/2017 SHANE LEE MD, Ot K31.84 GASTROPARESIS 10/12/2017 SHANE LEE MD, Ot R10.13 EPIGASTRIC PAIN 10/12/2017 SHANE LEE MD, Ot Z68.43 BODY MASS INDEX (BMI) 50-59.9 , ADULT 10/12/2017 SHANE LEE MD, Ot Z79.4 RETIREMENT (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 10/12/2017 SHANE LEE MD, Ot Z79.52 RETIREMENT (CURRENT) USE OF SYSTEMIC STER 10/12/2017 SHANE LEE MD, Ot Z79.82 RETIREMENT (CURRENT) USE OF ASPIRIN 10/12/2017 SHANE LEE MD, Ot Z82.49 FAMILY HX OF ISCHEM HEART DIS AND OTH DI 10/12/2017 SHANE LEE MD, Ot Z85.46 PERSONAL HISTORY OF MALIGNANT NEOPLASM O 10/12/2017 SHANE LEE MD, Ot Z87.19 PERSONAL HISTORY OF OTHER DISEASES OF TH 10/12/2017 SHANE LEE MD, Ot Z87.891 PERSONAL HISTORY OF NICOTINE DEPENDENCE 10/12/2017 SHANE LEE MD Ot Z90.89 ACQUIRED ABSENCE OF OTHER ORGANS 10/15/2017 OSCAR MIKE DO Ot K92.1 MELENA 10/15/2017 OSCAR MIKE DO Ot R10.13 EPIGASTRIC PAIN 10/15/2017 OSCAR MIKE DO Ot Z01.818 ENCOUNTER FOR OTHER PREPROCEDURAL EXAMIN 10/17/2017 OSCAR MIKE DO Ot E11.43 TYPE 2 DIABETES W DIABETIC AUTONOMIC (PO 10/17/2017 OSCAR MIKE DO Ot E66.01 MORBID (SEVERE) OBESITY DUE TO EXCESS CA 10/17/2017 OSCAR MIKE DO Ot F15.90 OTHER STIMULANT USE, UNSPECIFIED, UNCOMP 10/17/2017 OSCAR MIKE DO Ot G47.33 OBSTRUCTIVE SLEEP APNEA (ADULT) (PEDIATR 10/17/2017 MIKE DOOSCAR Ot I10 ESSENTIAL (PRIMARY) HYPERTENSION 10/17/2017 CEE DOOSCAR Ot K92.1 MELENA 10/17/2017 MIKE DOOSCAR Ot R10.13 EPIGASTRIC PAIN 10/17/2017 OSCAR MIKE DO Ot Z53.8 PROCEDURE AND TREATMENT NOT CARRIED OUT 10/17/2017 OSCAR MIKE DO Ot Z68.43 BODY MASS INDEX (BMI) 50-59.9 , ADULT 10/17/2017 MIKE DOOSCAR Ot Z79.4 BACK TENDER CYLINDER (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 11/07/2017 OSCAR MIKE DO Ot E11.43 TYPE 2 DIABETES W DIABETIC AUTONOMIC (PO 11/07/2017 OSCAR MIKE DO Ot E66.01 MORBID (SEVERE) OBESITY DUE TO EXCESS CA 11/07/2017 OSCAR MIKE DO Ot F15.90 OTHER STIMULANT USE, UNSPECIFIED, UNCOMP 11/07/2017 OSCAR MIKE DO Ot G47.33 OBSTRUCTIVE SLEEP APNEA (ADULT) (PEDIATR 11/07/2017 MIKE DOOSCAR Ot I10 ESSENTIAL (PRIMARY) HYPERTENSION 11/07/2017 CEE DOOSCAR Ot K92.1 MELENA 11/07/2017 OSCAR MIKE DO Ot R10.13 EPIGASTRIC PAIN 11/07/2017 OSCAR MIKE DO Ot Z53.8 PROCEDURE AND TREATMENT NOT CARRIED OUT 11/07/2017 OSCAR MIKE DO Ot Z68.43 BODY MASS INDEX (BMI) 50-59.9 , ADULT 11/07/2017 OSCAR MIKE DO Ot Z79.4 RETIREMENT (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 11/07/2017 CEE DOOSCAR Ot K92.1 MELENA 11/07/2017 OSCAR MIKE DO Ot R10.13 EPIGASTRIC PAIN 11/07/2017 OSCAR MIKE DO Ot Z01.818 ENCOUNTER FOR OTHER PREPROCEDURAL EXAMIN 12/06/2017 OSCAR MIKE DO Ot E11.43 TYPE 2 DIABETES W DIABETIC AUTONOMIC (PO 12/06/2017 OSCAR IMKE DO Ot E66.01 MORBID (SEVERE) OBESITY DUE TO EXCESS CA 12/06/2017 OSCAR MIKE DO Ot F15.90 OTHER STIMULANT USE, UNSPECIFIED, UNCOMP 12/06/2017 OSCAR MIKE DO Ot G47.33 OBSTRUCTIVE SLEEP APNEA (ADULT) (PEDIATR 12/06/2017 OSCAR MIKE DO Ot I10 ESSENTIAL (PRIMARY) HYPERTENSION 12/06/2017 OSCAR MIKE DO Ot K92.1 MELENA 12/06/2017 OSCAR MIKE DO Ot R10.13 EPIGASTRIC PAIN 12/06/2017 OSCAR MIKE DO Ot Z53.8 PROCEDURE AND TREATMENT NOT CARRIED OUT 12/06/2017 OSCAR MIKE DO Ot Z68.43 BODY MASS INDEX (BMI) 50-59.9 , ADULT 12/06/2017 OSCAR MIKE DO Ot Z79.4 RETIREMENT (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 Procedures Code Description [place] [address] GLUCOSE FINGER STICK 10/15/2012 87328 A1C (IN-HOUSE) 10/15/2012 10246 ROUTINE VENIPUNCTURE 11/07/2012 43689 CBC 11/07/2012 74489 CMP 11/07/2012 [id number] GFR CALC (RESULT ONLY) 11/07/2012 53332 AMYLASE 11/07/2012 74385 LIPASE 11/07/2012 26601 ROUTINE VENIPUNCTURE 12/25/2012 45149 UA LONG DIP 12/25/2012 78741 CBC 12/25/2012 80031 CMP 12/25/2012 0760343 GFR CALC (RESULT ONLY) 12/25/2012 19583 AMYLASE 12/25/2012 88599 LIPASE 12/25/2012 93163 ROUTINE VENIPUNCTURE 01/09/2013 68090 CBC 01/09/2013 03538 CMP 01/09/2013 3577630 GFR CALC (RESULT ONLY) 01/09/2013 56317 AMYLASE 01/09/2013 58375 LIPASE 01/09/2013 93961 US ABDOMINAL ULTRASOUND, COMPLETE 01/10/2013 35950 XRAY KNEE RIGHT 1 OR 2 VIEWS 01/16/2013 Jamil Covarrubias 01/30/2013 41294 A1C (IN-HOUSE) 02/06/2013 31851 JOINT INJECTION- LARGE JOINT (SPECIFY MEDCIN DESCRIPTION) [...] INFLUENZA A AND B ANTIGENS BY [facility] Capillary blood glucose measurement by [...] - 10/10/17 13:52 Lipase 14 U/L 8-78 Capillary blood glucose measurement by glucometer (mass/volume) - 10/16/17 08: 16 Capillary blood glucose measurement by glucometer (mass/volume) 109 mg/dL 70-110 Urine drug screening test - 10/16/17 08:55 Urine phencyclidine detection by screening method NEGATIVE [...] NEGATIVE NEGATIVE Urine propoxyphene detection NEGATIVE NEGATIVE Encounters ACCT No. Visit Date/Time Discharge Status Pt. Type Provider Facility Loc./Unit Complaint [id number] 05/29/2013 12:23:00 05/29/2013 23:59:59 CLS Outpatient SIVAKUMAR LAUREN DO [id number] 11/28/2012 10:16:00 11/28/2012 23:59:59 CLS Outpatient RIOS NUÑEZ MD [id number] 11/07/2012 08:02:00 11/07/2012 23:59:59 CLS Outpatient RIOS NUÑEZ MD [id number] 10/15/2012 09:34:00 10/15/2012 23:59:59 CLS Outpatient RIOS NUÑEZ MD [id number] 04/15/2013 10:16:00 Document Registration [id number] 03/27/2013 12:19:00 Document Registration [id number] 03/06/2013 09:16:00 Document Registration [id number] 02/27/2013 11:44:00 Document Registration [id number] 02/06/2013 10:50:00 Document Registration [id number] 01/16/2013 14:53:00 Document Registration [id number] 01/09/2013 10:45:00 Document Registration [id number] 12/31/2012 09:51:00 Document Registration [id number] 12/26/2012 07:36:00 Document Registration [id number] 12/25/2012 11:46:00 Document Registration [id number] 12/25/2012 11:46:00 Document Registration [id number] 01/04/2018 09:00:00 01/04/2018 23:59:59 CLS Out[id number] 01/14/2015 09:16:24 ACT Document Registration [id number] 11/06/2017 09:56:00 11/06/2017 13:38:00 DIS Outpatient OSCAR MIKE DO [facility] PREOP COLONOSCOPY/EGD [id number] 10/30/2017 08:45:00 10/30/2017 23:59:59 CLS Preadmit OSCAR MIKE DO [facility] ENDO EPIGASTRIC ABD PAIN/ BLOOD IN STOOLS [id number] 10/16/2017 07:57:00 10/16/2017 23:59:59 CLS Outpatient OSCAR MIKE DO [facility] ENDO EPIGASTRIC ABD PAIN/ BLOOD IN STOOLS [id number] 10/12/2017 05:39:00 10/12/2017 11:36:00 DIS Outpatient OSCAR MIKE DO [facility] PREOP COLONOSCOPY/EGD [id number] 10/10/2017 12:39:00 10/10/2017 14:56:00 DIS Emergency SHANE LEE MD [facility] ER UPPER ABD PAIN [id number] 10/06/2017 14:49:00 10/06/2017 18:07:00 DIS Emergency MELANY QURESHI, OSMAN Quintanilla [facility] ER BLOOD IN URINE/STOOL, HIGH BLOOD SUGAR [id number] 09/24/2017 13:22:00 09/24/2017 15:41:00 DIS Emergency ABIGAIL LACY SCRUBBER MACHINE TENDER [facility] ER ABD PAIN [id number] 11/03/2016 19:50:00 11/04/2016 06:25:00 DIS Outpatient EDUIN FLOREZ APRN [facility] SLEEP NOCTURNAL HYPOXIA , OBSTRUCTIVE SLEEP APNEA [id number] 11/01/2016 15:18:00 11/01/2016 23:59:59 CLS Outpatient EDUIN FLOREZ APRN [facility] RT ASTHMA,SOB ON EXERTION [id number] 10/08/2016 09:45:00 10/09/2016 13:00:00 DIS Inpatient ROBIN ROGEL DO [facility] 4TH URI/BRONCHOSPASM [id number] 04/12/2016 08:26:00 04/12/2016 12:31:00 DIS Emergency MELANY QURESHI, OSMAN Quintanilla [facility] ER LEFT SIDE FACIAL NUMBNESS/DROOPING [id number] 01/15/2015 08:15:00 01/17/2015 13:15:00 DIS Inpatient MARCELA QURESHI, BOUCHRA Gibson [facility] 4TH BRONCHITIS W/HYPOXIA UNCONTROLLED HYPERGLYCEMIA [id number] 12/27/2014 20:52:00 12/27/2014 22:16:00 DIS Emergency GILBERT GALARZA [facility] ER RT EAR PAIN/BLEEDING [id number] 03/14/2014 18:57:00 03/14/2014 21:23:00 DIS Emergency CHILO QURESHI, EMILY Payne [facility] ER UPPER ABD PAIN [id number] 12/06/2013 12:54:00 12/06/2013 16:00:00 DIS Emergency JOVAN QURESHI, LEA Doyle [facility] ER ELEVATED BLOOD SUGAR, PANCREATIC PAIN [id number] 02/11/2013 13:31:00 02/11/2013 17:30:00 DIS Emergency JESUS QURESHI, SHANE Lundberg [facility] ER ELEVATED BLOOD SUGAR [id number] 01/24/2013 08:29:00 01/24/2013 23:59:59 CLS Outpatient BRANDON QURESHI, DONAL Payne [facility] RAD EPIGASTRIC PAIN,HX OF COMPLICATED PANCREATITIS [id number] 01/20/2013 18:38:00 01/22/2013 09:00:00 DIS Outpatient ANGEL NORMAN MD [facility] CATH CHEST PAIN [id number] 10/28/2014 19:52:00 Document Registration [id number] 09/12/2012 08:22:00 Document Registration [id number] 06/24/2012 15:58:00 Document Registration [id number] 06/10/2012 10:51:00 Document Registration [id number] 06/05/2012 20:50:00 Document Registration [id number] 05/15/2012 09:28:00 Document Registration [id number] 03/16/2012 23:30:00 Document Registration [id number] 02/22/2012 20:28:00 Document Registration [id number] 08/21/2011 10:18:00 Document Registration [id number] 06/07/2011 18:53:00 Document Registration [id number] 02/16/2011 10:53:00 Document Registration [id number] 06/16/2010 07:33:00 Document Registration [id number] 02/04/2010 18:57:00 Document Registration [id number] 01/31/2010 18:27:00 Document Registration
[2018-01-08 13:14] LABS: BASOPHILS % (AUTO) 0 % (0-10); EOSINOPHILS # (AUTO) 0.2 10^3/uL (0.0-0.3); EOSINOPHILS % (AUTO) 2 % (0-10); HEMATOCRIT 40 % (40-54); HEMOGLOBIN 13.3 G/DL (13.3-17.7); LYMPHOCYTES # (AUTO) 1.8 X 10^3 (1.0-4.0); LYMPHOCYTES % (AUTO) 19 % (12-44); MEAN CORPUSCULAR HEMOGLOBIN 30 PG (25-34); MEAN CORPUSCULAR HGB CONC 33 G/DL (32-36); MEAN CORPUSCULAR VOLUME 90 FL (80-99); MEAN PLATELET VOLUME 10.4 FL (7.4-10.4); MONOCYTES # (AUTO) 0.7 X 10^3 (0.0-1.0); MONOCYTES % (AUTO) 8 % (0-12); NEUTROPHILS # (AUTO) 6.7 X 10^3 (1.8-7.8); NEUTROPHILS % (AUTO) 71 % (42-75); PLATELET COUNT 206 10^3/uL (130-400); RED BLOOD COUNT 4.51 10^6/uL (4.35-5.85); RED CELL DISTRIBUTION WIDTH 14.1 % (10.0-14.5); WHITE BLOOD COUNT 9.4 10^3/uL (4.3-11.0)
[2018-01-08] MEDS ORDERED: IOHEXOL 350 MG/ML 150 ML (OMNIPAQUE 350) VIAL IV ONE (13:15)
[2018-01-08] MEDS ORDERED: NS 100 ML (IVPB) BAG IV ONE (13:15)
[2018-01-08 13:31] LABS: INR 1.1 (0.8-1.4); PROTHROMBIN TIME PATIENT 13.9 SEC (12.2-14.7)
[2018-01-08] MEDS ORDERED: NS IV 1000 ML 1,000 ML IV ONE ×2 (13:31→14:24)
[2018-01-08 13:35] LABS: ALANINE AMINOTRANSFERASE 75 U/L (0-55); ALBUMIN 3.8 GM/DL (3.2-4.5); ALKALINE PHOSPHATASE 79 U/L (40-136); BILIRUBIN,TOTAL 0.5 MG/DL (0.1-1.0); BUN/CREATININE RATIO 27; CALCIUM 9.6 MG/DL (8.5-10.1); CARBON DIOXIDE 25 MMOL/L (21-32); CHLORIDE 100 MMOL/L (98-107); CREATINE KINASE 85 U/L (30-200); CREATININE SERUM 1.05 MG/DL (0.60-1.30); GFR ESTIMATED > 60; GLUCOSE 210 MG/DL (70-105); MAGNESIUM 1.6 MG/DL (1.8-2.4); POTASSIUM 5.7 MMOL/L (3.6-5.0); SODIUM 135 MMOL/L (135-145); TOTAL PROTEIN 7.3 GM/DL (6.4-8.2)
[2018-01-08] MEDS ORDERED: cefTRIAXone INJECTION 1,000 MG in NS (IVPB) 100 ML IV ONE (13:45)
[2018-01-08 13:54] LABS: CREATINE KINASE MB 3.1 NG/ML (<6.6); TSH (THYROID ANALYZER) 2.57 UIU/ML (0.35-4.94)
--- NOTE | 2018-01-08 13:59 | Diagnostic Imaging Report ---
PROCEDURE: CT angiography of the chest with contrast. TECHNIQUE: Multiple contiguous axial images were obtained through the chest after uneventful bolus administration of intravenous contrast. Reconstructed CTA MIP acquisitions were also performed. INDICATION: Shortness of breath upon exertion. COMPARISON is made with prior CT chest from 04/12/2016. FINDINGS: Overall pulmonary arterial opacification is somewhat suboptimal due to patient body habitus. No central filling defects are seen to suggest pulmonary emboli. The more distal branches are difficult to evaluate. The thoracic aorta is normal in caliber. No dissection is seen. No pericardial or pleural fluid is identified. No axillary, hilar or mediastinal adenopathy is detected. There is minimal atelectasis in the right upper lobe. The remainder of the lung gillespie are clear. Upper abdomen demonstrates hepatic steatosis. IMPRESSION: Suboptimal pulmonary arterial opacification, likely owing to patient body habitus. No central pulmonary emboli are detected. Dictated by: Dictated on workstation # [id number]
--- NOTE | 2018-01-08 14:12 | ED Respiratory ---
General Chief Complaint: Respiratory Problems Stated Complaint: SHORTNESS OF BREATH Nursing Triage Note: PT AMBULATES TO ROOM 4 PT CO OF SOA, PT HYPERVENTILATING AT THIS X SAT 94% ON ROOM AIR. PT SENT TO ED FROM [facility] Source: patient, spouse Exam Limitations: no limitations History of Present Illness Date Seen by Provider: January 08, 2018 Time Seen by Provider: 12:40 Initial Comments 47 yo male patient presents to the ED with complaints of shortness of air. Patient noted to be hyperventilating upon admission with a SaO2 of 94% on RA. Patient was sent to the ED from [facility]. onset of symptoms this AM. Patient has a h/o pancreatitis following cholecystectomy. also has had increased problems with anxiety. states patient has been under a lot of stress. per records patient's grandchild 8 mo ago. h/o sleep apnea. Timing/Duration: this morning Prior Episodes/Possible Cause: unknown cause Modifying Factors: Worse With Activity Allergies and Home Medications Allergies Coded Allergies: No Known Drug Allergies (Unverified , 10/12/17) Home Medications Amlodipine Besylate 5 Mg Tablet, 5 MG PO DAILY, (Reported) Aspirin 81 Mg Tab.chew, 81 MG PO DAILY, (Reported) Benztropine Mesylate 0.5 Mg Tablet, 0.5 MG PO PRN, (Reported) Cetirizine HCl 10 Mg Tablet, 10 MG PO DAILY, (Reported) Furosemide 40 Mg Tablet, 40 MG PO DAILY, (Reported) Furosemide 40 Mg Tablet, 20 MG PO DAILY 1600, (Reported) Haloperidol 2 Mg Tablet, 2 MG PO PRN, (Reported) Insulin Aspart 300 Units/3 Ml Solution, UNITS SQ TID SSI, (Reported) Insulin Glargine,Hum.rec.anlog 100 Unit/1 Ml Insuln.pen, 100 UNIT SQ BID, ( Reported) Lisinopril 40 Mg Tablet, 40 MG PO DAILY, (Reported) Metformin HCl 850 Mg Tablet, 1,000 MG PO BID, (Reported) Multivitamin 1 Each Tablet, 1 EACH PO DAILY, (Reported) Omeprazole 40 Mg Capsule.dr, 40 MG PO BID Prescribed by: OSMAN JUÁREZ on 10/06/17 563 Oxycodone HCl/Acetaminophen 1 Each Tablet, 1 EACH PO PRN, (Reported) Paliperidone Palmitate 819 Mg/2.625 Ml Syringe, 819 MG IM EVERY 3 MONTHS, ( Reported) Potassium Chloride 10 Meq Tablet.er, 10 MEQ PO DAILY, (Reported) Sucralfate 1 Gm Tablet, 1 GM PO QID Crush to make slurry with 10 mL water. Take 30 minutes before meals and bed Prescribed by: OSMAN JUÁREZ on 10/06/17 4602 Patient Home Medication List Home Medication List Reviewed: Yes Review of Systems Constitutional: No chills, No diaphoresis; dizziness; No fever; malaise, other (fatigue) EENTM: no symptoms reported Respiratory: No cough; dyspnea on exertion; No phlegm; short of breath, wheezing (occasional wheezing) Cardiovascular: No chest pain; edema, palpitations; No syncope Gastrointestinal: No abdominal pain, No constipation, No diarrhea; hematemesis , heartburn (chronic heartburn. States he has not been taking his reflux medication for several days.), loss of appetite, melena, nausea; No vomiting Genitourinary: no symptoms reported Musculoskeletal: no symptoms reported Skin: no symptoms reported Psychiatric/Neurological: No Symptoms Reported All Other Systems Reviewed Negative Unless Noted: Yes (Negative excepted noted.) Past Fzfkhsq-Mvlrch-Elwpff Hx Patient Social History Alcohol Use: Rarely Uses Recreational Drug Use: No Smoking Status: Former Smoker Type Used: Cigarettes Former Smoker, Quit: Oct 08, 1996 Recent Foreign Travel: No Contact w/Someone Who Travel: No Recent Infectious Disease Expo: No Recent Hopitalizations: No Physical Abuse: No Sexual Abuse: No Immunizations Up To Date Tetanus Booster (TDap): Unknown PED Vaccines UTD: No Date of Pneumonia Vaccine: Oct 08, 2010 Seasonal Allergies Seasonal Allergies: Yes Past Medical History Surgeries: Yes (PANCREAS STENT-HAS BEEN REMOVED, R KNEE X2, L KNEE ) Gallbladder, Orthopedic, Tonsillectomy Respiratory: Yes Sleep Apnea Currently Using CPAP: No Currently Using BIPAP: No Cardiac: Yes Chronic Edema/Swelling, Hypertension Neurological: No Reproductive Disorders: No Sexually Transmitted Disease: No HIV/AIDS: No Genitourinary: No Gastrointestinal: Yes (BLOOD IN STOOLS) Gastroesophageal Reflux, Chronic Constipation, Pancreatitis, Chronic Diarrhea Musculoskeletal: Yes (BOTH KNEES) Arthritis Endocrine: Yes (Morbid obesity) Diabetes, Insulin dep HEENT: No Loss of Vision: Bilateral Hearing Impairment: Denies Cancer: No Psychosocial: Yes Anxiety, Schizophrenia, Depression Nursing Suicide Risk Score: 0 Integumentary: No Blood Disorders: No Adverse Reaction/Blood Tranf: No (N/A) Family Medical History Reviewed Nursing Family Hx Alzheimer's disease 19 MOTHER Arthritis 19 FATHER Cardiovascular disease 19 FATHER Dementia 19 MOTHER Hypertension 19 FATHER Myocardial infarction G8 BROTHER Parkinson's disease 19 MOTHER Prostate cancer 19 FATHER No Family History of: AIDS Abdominal aortic aneurysm Camas's disease Alcoholism Aphasia Asthma Cancer of mouth Cataracts Colon cancer Completed stroke Congenital disease Congenital heart disease Coronary thrombosis Cystic fibrosis Deafness or hearing loss Diabetes mellitus Drug abuse Dysphasia Fibrocystic disease of breast Gastroenteritis Glaucoma Headache disorder Hypercholesterolemia Infertility Kidney disease Neoplasm Not obtainable due to adoption Osteoporosis Psychosocial problem Respiratory disorder Seizure disorder Severe allergy Thyroid disease Tuberculosis Visual disorder Heart Disease, CAD Under 55 Years Old (brother in his 40's from an [place].), Hypertension, Vascular Disease, Other Conditions/Hx Physical Exam Vital Signs Vital Signs - First Documented 01/08/18 12:32 Temp 97.9 Pulse 104 Resp 22 B/P (MAP) 139/82 (101) Pulse Ox 96 O2 Delivery Room Air Capillary Refill : Less Than 3 Seconds Focused Exam Lactate Level 01/08/18 12:40: Lactic Acid Level 3.16*H 01/08/18 14:42: Lactic Acid Level 2.93*H Lactic Acid Level Laboratory Tests Test 01/08/18 12:40 01/08/18 14:42 Lactic Acid Level 3.16 MMOL/L (0.50-2.00) *H 2.93 MMOL/L (0.50-2.00) *H Progress/Results/Core Measures Suspected Sepsis Recent Fever Within 48 Hours: No Infection Criteria Present: None New/Unexplained Altered Menta: No Sepsis Screen: No Definite Risk SIRS Temperature:97.9 Pulse: 104 Respiratory Rate: 22 Laboratory Tests 01/08/18 12:40: White Blood Count 9.4 Blood Pressure 139 /82 Mean: 101 01/08/18 12:40: Lactic Acid Level 3.16*H 01/08/18 14:42: Lactic Acid Level 2.93*H Laboratory Tests 01/08/18 12:40: Creatinine 1.05, INR Comment 1.1, Platelet Count 206, Total Bilirubin 0.5 Results/Orders Lab Results Laboratory Tests Test 01/08/18 12:40 01/08/18 14:42 01/08/18 14:51 01/08/18 17:18 Range/Units White Blood Count 9.4 4.3-11.0 10^3/uL Red Blood Count 4.51 4.35-5.85 10^6/uL Hemoglobin 13.3 13.3-17.7 G/DL Hematocrit 40 40-54 % Mean Corpuscular Volume 90 80-99 FL Mean Corpuscular Hemoglobin 30 25-34 PG Mean Corpuscular Hemoglobin Concent 33 32-36 G/DL Red Cell Distribution Width 14.1 10.0-14.5 % Platelet Count 206 130-400 10^3/uL Mean Platelet Volume 10.4 7.4-10.4 FL Neutrophils (%) (Auto) 71 42-75 % Lymphocytes (%) (Auto) 19 12-44 % Monocytes (%) (Auto) 8 0-12 % Eosinophils (%) (Auto) 2 0-10 % Basophils (%) (Auto) 0 0-10 % Neutrophils # (Auto) 6.7 1.8-7.8 X 10^3 Lymphocytes # (Auto) 1.8 1.0-4.0 X 10^3 Monocytes # (Auto) 0.7 0.0-1.0 X 10^3 Eosinophils # (Auto) 0.2 0.0-0.3 10^3/uL Basophils # (Auto) 0.0 0.0-0.1 10^3/uL Prothrombin Time 13.9 12.2-14.7 SEC INR Comment 1.1 0.8-1.4 Activated Partial Thromboplast Time 30 24-35 SEC Sodium Level 135 135-145 MMOL/L Potassium Level 5.7 H 3.6-5.0 MMOL/L Chloride Level 100 98-107 MMOL/L Carbon Dioxide Level 25 21-32 MMOL/L Anion Gap 10 5-14 MMOL/L Blood Urea Nitrogen 28 H 7-18 MG/DL Creatinine 1.05 0.60-1.30 MG/DL Estimat Glomerular Filtration Rate > 60 BUN/Creatinine Ratio 27 Glucose Level 210 H 70-105 MG/DL Lactic Acid Level 3.16 *H 2.93 *H 0.50-2.00 MMOL/L Calcium Level 9.6 8.5-10.1 MG/DL Magnesium Level 1.6 L 1.8-2.4 MG/DL Total Bilirubin 0.5 0.1-1.0 MG/DL Aspartate Amino Transf (AST/SGOT) 86 H 5-34 U/L Alanine Aminotransferase (ALT/SGPT) 75 H 0-55 U/L Alkaline Phosphatase 79 40-136 U/L Total Creatine Kinase 85 30-200 U/L Creatine Kinase MB 3.1 <6.6 NG/ML Troponin I < 0.30 <0.30 NG/ML B-Type Natriuretic Peptide 10.0 <100.0 PG/ML Total Protein 7.3 6.4-8.2 GM/DL Albumin 3.8 3.2-4.5 GM/DL Lipase 35 8-78 U/L TSH [place] Testing 2.57 0.35-4.94 UIU/ML Serum Alcohol < 10 <10 MG/DL Urine Color YELLOW Urine Clarity CLEAR Urine pH 5 5-9 Urine Specific [place] 1.015 L 1.016-1.022 Urine Protein NEGATIVE NEGATIVE Urine Glucose (UA) NEGATIVE NEGATIVE Urine Ketones NEGATIVE NEGATIVE Urine Nitrite NEGATIVE NEGATIVE Urine Bilirubin NEGATIVE NEGATIVE Urine Urobilinogen NORMAL NORMAL MG/DL Urine Leukocyte Esterase 1+ H NEGATIVE Urine RBC (Auto) NEGATIVE NEGATIVE Urine RBC NONE /HPF Urine WBC 0-2 /HPF Urine Squamous Epithelial Cells 2-5 /HPF Urine Crystals NONE /LPF Urine Bacteria NEGATIVE /HPF Urine Casts NONE /LPF Urine Mucus NEGATIVE /LPF Urine Culture Indicated NO Urine Opiates Screen NEGATIVE NEGATIVE Urine Oxycodone Screen NEGATIVE NEGATIVE Urine Methadone Screen NEGATIVE NEGATIVE Urine Propoxyphene Screen NEGATIVE NEGATIVE Urine Barbiturates Screen NEGATIVE NEGATIVE Ur Tricyclic Antidepressants Screen NEGATIVE NEGATIVE Urine Phencyclidine Screen NEGATIVE NEGATIVE Urine Amphetamines Screen POSITIVE H NEGATIVE Urine Methamphetamines Screen POSITIVE H NEGATIVE Urine Benzodiazepines Screen NEGATIVE NEGATIVE Urine Cocaine Screen NEGATIVE NEGATIVE Urine Cannabinoids Screen NEGATIVE NEGATIVE Glucometer 151 H 70-110 MG/DL My Orders Orders - GILBERT ROACH Ct Angio Chest W (01/08/18 12:52) Saline Lock/Iv-Start (01/08/18 12:52) Ekg Tracing (01/08/18 12:52) O2 (01/08/18 12:52) Monitor-Rhythm Ecg Trace Only (01/08/18 12:52) Alcohol (01/08/18 12:52) BNP (01/08/18 12:52) Cbc With Automated Diff (01/08/18 12:52) Comprehensive Metabolic Panel (01/08/18 12:52) Creatine Kinase (01/08/18 12:52) Creatine Kinase Mb (01/08/18 12:52) Drug Screen Stat (Urine) (01/08/18 12:52) Magnesium (01/08/18 12:52) Protime With Inr (01/08/18 12:52) Partial Thromboplastin Time (01/08/18 12:52) Thyroid Analyzer (01/08/18 12:52) Troponin I (01/08/18 12:52) Ua Culture If Indicated (01/08/18 12:52) Lactic Acid Analyzer (01/08/18 13:10) Us Venous Lower Ext Anjum (01/08/18 13:10) Iohexol Injection (Omnipaque 350 Mg/Ml 1 (01/08/18 13:15) Ns (Ivpb) (Sodium Chloride 0.9% Ivpb Bag (01/08/18 13:15) Blood Culture (01/08/18 13:31) Ns Iv 1000 Ml (Sodium Chloride 0.9%) (01/08/18 13:31) Ceftriaxone Injection (Rocephin Injectio (01/08/18 13:45) Ns Iv 1000 Ml (Sodium Chloride 0.9%) (01/08/18 14:24) Ct Abdomen/Pelvis W (01/08/18 14:40) Lipase (01/08/18 14:40) Iohexol Injection (Omnipaque 350 Mg/Ml 1 (01/08/18 14:45) Ns (Ivpb) (Sodium Chloride 0.9%) (01/08/18 14:45) Ondansetron Injection (Zofran Injectio (01/08/18 15:00) Morphine Injection (Morphine Injection (01/08/18 14:46) Diazepam Injection (Valium Injection) (01/08/18 15:00) Ranitidine Injection (Zantac Injection) (01/08/18 15:00) Pharmacy Communication (Pharmacy Communi (01/08/18 15:23) Accucheck Stat ONCE (01/08/18 16:45) Medications Given in ED Current Medications Medications Dose Ordered Sig/Shadia Route Start Time Stop Time Status Last Admin Dose Admin Ceftriaxone Sodium 1000 mg/ Sodium Chloride 100 ml @ 200 mls/hr ONCE ONCE IV 01/08/18 13:45 01/08/18 14:14 DC 01/08/18 14:04 200 MLS/HR Diazepam 5 mg ONCE ONCE IV 01/08/18 15:00 01/08/18 15:01 DC 01/08/18 14:55 5 MG Iohexol 125 ml ONCE ONCE IV 01/08/18 13:15 01/08/18 13:17 DC 01/08/18 13:26 125 ML Ondansetron HCl 4 mg ONCE ONCE IVP 01/08/18 15:00 01/08/18 15:01 DC 01/08/18 15:51 4 MG Ranitidine HCl 50 mg ONCE ONCE IV 01/08/18 15:00 01/08/18 15:01 DC 01/08/18 15:51 50 MG Sodium Chloride 80 ml ONCE ONCE IV 01/08/18 13:15 01/08/18 13:17 DC 01/08/18 13:26 80 ML Sodium Chloride 1,000 ml @ 0 mls/hr Q0M ONCE IV 01/08/18 13:31 01/08/18 13:36 DC 01/08/18 14:04 1,000 MLS/HR Sodium Chloride 1,000 ml @ 0 mls/hr Q0M ONCE IV 01/08/18 14:24 01/08/18 14:25 DC 01/08/18 15:00 1,000 MLS/HR Vital Signs/I&O 01/08/18 12:32 Temp 97.9 Pulse 104 Resp 22 B/P (MAP) 139/82 (101) Pulse Ox 96 O2 Delivery Room Air Capillary Refill : Less Than 3 Seconds Blood Pressure Mean: 101 Departure Communication (Admissions) 1742 tejas 174 outpatient [facility] 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 Decision time for Depature: 18:13 Referrals: [facility]/ROCHELLE (PCP) Primary Care Physician RIAZ ALVARENGA MD (Family) Primary Care Physician OSCAR MIKE DO Patient Instructions: Genao's Cyst (DC), CONTRAST ANTIDIABETIC MEDS, Drug Abuse and Drug Addiction (DC), Methamphetamine Add. Discharge Instructions: All discharge instructions reviewed with patient and/or family. Voiced understanding. Hold the metformin for 48 hours due to contrast given during the CT scans. Continue all other medications. Do not use methamphetamines. Follow-up with Dr. Alvarenga tomorrow morning for recheck. Follow-up with Dr. Mike for need of upper endoscopy and colonoscopy as an outpatient. Call first thing in the morning for an appointment time. Return to the emergency department for worsened symptoms, chest pain, shortness of breath, fever, vomiting blood, rectal bleeding, or any other concerns. Scripts Sucralfate (Sucralfate) 1 Gm Tablet 1 GM PO ACHS, #56 TAB 0 Refills Prov: GILBERT ROACH 01/08/18 Omeprazole (Omeprazole) 40 Mg Capsule. 40 MG PO DAILY, #20 CAP 0 Refills Prov: GILBERT ROACH 01/08/18 GILBERT ROACH January 08, 2018 14:12
--- NOTE | 2018-01-08 14:19 | Diagnostic Imaging Report ---
INDICATION: Shortness of breath. TECHNIQUE: Grayscale, color-flow and duplex Doppler evaluation of the bilateral lower extremity deep venous systems was performed. FINDINGS: There is no evidence of right or left lower extremity DVT. Both lower extremity deep venous systems demonstrate normal compressibility, normal response to augmentation and Valsalva. There is a Genao's cyst on the left measuring 4.9 x 1.6 x 2.0 cm. IMPRESSION: 1. No evidence of right or left lower extremity DVT. 2. Left Genao's cyst. Dictated by: Dictated on workstation # [id number]
[2018-01-08] MEDS ORDERED: NS 250 ML (IVPB) BAG IV ONE (14:45)
[2018-01-08] MEDS ORDERED: IOHEXOL 350 MG/ML 100 ML (OMNIPAQUE 350) VIAL IV ONE (14:45)
[2018-01-08] MEDS ORDERED: morphine INJ 10 MG/ML 1ML (SYR OR VIAL) IVP STA (14:46)
[2018-01-08 14:58] LABS: BILIRUBIN,URINE NEGATIVE (NEGATIVE); CLARITY,URINE CLEAR; COLOR,URINE YELLOW; GLUCOSE, URINE (UA) NEGATIVE (NEGATIVE); KETONES,URINE NEGATIVE (NEGATIVE); LEUKOCYTE ESTERASE ,URINE 1+ (NEGATIVE); NITRITE,URINE NEGATIVE (NEGATIVE); PH,URINE 5 (5-9); PROTEIN,URINE NEGATIVE (NEGATIVE); UROBILINOGEN,URINE NORMAL (NORMAL)
[2018-01-08] MEDS ORDERED: ONDANSETRON 4 MG/2 ML (SDV) Z0FRAN IVP ONE (15:00)
[2018-01-08] MEDS ORDERED: DIAZEPAM INJ 10 MG/2 ML (VALIUM) SYR IV ONE (15:00)
[2018-01-08] MEDS ORDERED: raNItidine 50 MG/2 ML INJ (ZANTAC) IV ONE (15:00)
[2018-01-08 15:04] LABS: BACTERIA,URINE NEGATIVE /HPF; WBC,URINE 0-2 /HPF
[2018-01-08 15:10] LABS: AMPHETAMINE SCREEN, URINE POSITIVE (NEGATIVE); BARBITURATE SCREEN URINE NEGATIVE (NEGATIVE); BENZODIAZEPINES SCREEN URINE NEGATIVE (NEGATIVE); CANNABINOID SCREEN, URINE NEGATIVE (NEGATIVE); COCAINE SCREEN URINE NEGATIVE (NEGATIVE); METHADONE STAT NEGATIVE (NEGATIVE); METHAMPHETAMINE SCREEN URINE S POSITIVE (NEGATIVE); OPIATE SCREEN URINE NEGATIVE (NEGATIVE); OXYCODONE STAT NEGATIVE (NEGATIVE); PROPOXYPHENE STAT NEGATIVE (NEGATIVE); TRICYCLIC ANTIDEPRESSANTS SCRE NEGATIVE (NEGATIVE)
--- NOTE | 2018-01-08 17:36 | Diagnostic Imaging Report ---
PROCEDURE: CT abdomen and pelvis with contrast. TECHNIQUE: Multiple contiguous axial images were obtained through the abdomen and pelvis after administration of intravenous contrast. INDICATION: Rectal bleeding, pancreatitis. COMPARISON: 09/24/2017 FINDINGS: The pancreas appeared unremarkable, it showed homogenous enhancement. There is no acute fluid collection, pseudocyst or peripancreatic edema. Moderate fatty infiltration of the liver, stable. Gallbladder surgically absent without pathological dilatation of the bilary ducts. 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 The kidneys are unobstructed and unremarkable. There is no bowel obstruction. There is no ascites, abscess, hematoma or other fluid collection. There is no pneumatosis or free gas. There is no focal inflammatory change. There is mild noninflamed sigmoid diverticulosis. Prostate, seminal vesicles and urinary bladder are unremarkable. The osseous structures are nonacute. IMPRESSION: Stable benign fatty adrenal mass is nonfocal and nonacute. Pancreas with stable chronic hepatic steatosis and no biliary abnormality. No ascites, pseudocyst, obstruction or inflammatory process. No acute appearing abnormalities. Dictated by: Dictated on workstation # [id number]
[2018-01-08] MEDS ORDERED: SUCR1TAB PO (18:20)
[2018-01-08] MEDS ORDERED: OMEP40CA36 PO (18:20)
[2018-01-08 18:51] VITALS: BP 139/82
== END 2018-01-08 18:50 | disposition home or self-care (01) ==
LOC: EDUNIT# 12:32 → ER 12:36
DX: F15.10 Other stimulant abuse, uncomplicated (principal); E11.65 Type 2 diabetes mellitus with hyperglycemia; M71.20 Synovial cyst of popliteal space [Baker], unspecified knee; R79.9 Abnormal finding of blood chemistry, unspecified; F41.9 Anxiety disorder, unspecified; I10 Essential (primary) hypertension; K21.9 Gastro-esophageal reflux disease without esophagitis; F20.9 Schizophrenia, unspecified; F32.9 Major depressive disorder, single episode, unspecified; Z90.49 Acquired absence of other specified parts of digestive tract; Z79.82 Long term (current) use of aspirin; Z79.4 Long term (current) use of insulin; Z87.891 Personal history of nicotine dependence
CPT/HCPCS: 36415; 71275; 74177; 80053; 80306; 80320; 81000; 82550; 82553; 82962; 83605; 83690; 83735; 83880; 84443; 84484; 85025; 85610; 85730; 87040; 87077; 93005; 93041; 93970; 96361; 96365; 96375

== ENCOUNTER → 2019-11-13 | Outpatient (CLI) | payer MEDICARE ==
[~2019-11-13] MED LIST changes: -AMLO5TAB2 PO; +AMLO5TAB9 PO; +METF-398 PO; -METF850T2 PO; +OMEP40CA27 PO; -OMEP40CA36 PO; -OXYC-202 PO; +OXYC1TAB12 PO; +SUCR1TAB PO
[2019-11-13 16:32] LABS: BASOPHILS % (AUTO) 0 % (0-10); EOSINOPHILS # (AUTO) 0.2 10^3/uL (0.0-0.3); EOSINOPHILS % (AUTO) 2 % (0-10); HEMATOCRIT 44 % (40-54); HEMOGLOBIN 15.2 G/DL (13.3-17.7); LYMPHOCYTES # (AUTO) 2.1 X 10^3 (1.0-4.0); LYMPHOCYTES % (AUTO) 22 % (12-44); MEAN CORPUSCULAR HEMOGLOBIN 30 PG (25-34); MEAN CORPUSCULAR HGB CONC 35 G/DL (32-36); MEAN CORPUSCULAR VOLUME 85 FL (80-99); MEAN PLATELET VOLUME 10.3 FL (7.4-10.4); MONOCYTES # (AUTO) 0.7 X 10^3 (0.0-1.0); MONOCYTES % (AUTO) 7 % (0-12); NEUTROPHILS # (AUTO) 6.7 X 10^3 (1.8-7.8); NEUTROPHILS % (AUTO) 69 % (42-75); PLATELET COUNT 241 10^3/uL (130-400); RED CELL DISTRIBUTION WIDTH 14.1 % (10.0-14.5); WHITE BLOOD COUNT 9.8 10^3/uL (4.3-11.0)
[2019-11-13 16:51] LABS: ALANINE AMINOTRANSFERASE 34 U/L (0-55); ALBUMIN 3.9 GM/DL (3.2-4.5); ALKALINE PHOSPHATASE 111 U/L (40-136); BILIRUBIN,TOTAL 0.7 MG/DL (0.1-1.0); BUN/CREATININE RATIO 12; CARBON DIOXIDE 24 MMOL/L (21-32); CHLORIDE 99 MMOL/L (98-107); CREATININE SERUM 0.76 MG/DL (0.60-1.30); GFR ESTIMATED > 60; POTASSIUM 4.2 MMOL/L (3.6-5.0); SODIUM 135 MMOL/L (135-145); TOTAL PROTEIN 7.2 GM/DL (6.4-8.2)
--- NOTE | 2019-11-13 17:08 | Diagnostic Imaging Report ---
INDICATION: Injury to left foot, puncture wound. EXAMINATION: AP, oblique and lateral views of the left foot were obtained FINDINGS: No fracture or acute bony abnormality is seen. There is no radiopaque foreign body. IMPRESSION: No evidence of fracture or radiopaque foreign body. Dictated by: Dictated on workstation # [id number]
[2019-11-13 17:23] LABS: GLUCOSE 444 MG/DL (70-105)
== END ==
LOC: LAB 15:56
PROVIDERS: ATTEND Surgery
DX: S99.922A Unspecified injury of left foot, initial encounter (principal); S91.332A Puncture wound without foreign body, left foot, initial encounter; E11.621 Type 2 diabetes mellitus with foot ulcer
CPT/HCPCS: 36415; 73630; 80053; 84134; 85025

== ENCOUNTER 2019-11-19 02:54 | Inpatient (IN) | payer MEDICARE ==
[~2019-11-19] VITALS: Ht 175.3 cm; Wt 133.6 kg
[2019-11-19] VITALS (10 sets, daily range): BP systolic 133–175; BP diastolic 72–92
[2019-11-19] MEDS ORDERED: NS IV 1000 ML 1,000 ML IV SCH ×2 (04:13)
[2019-11-19] MEDS ORDERED: HYDROcodone/APAP 5 MG/325 MG (LORTAB) TAB PO ONE (04:15)
[2019-11-19] MEDS ORDERED: PIPERACILLIN SODIUM/TAZOBACTAM 4.5 GM in NS (IVPB) 100 ML IV ONE (04:15)
[2019-11-19] MEDS ORDERED: PHARMACY TO DOSE IV ONE (04:15)
--- NOTE | 2019-11-19 04:22 | ED Lower Extremity ---
General Chief Complaint: Lower Extremity Stated Complaint: LEFT LEG & FOOT PAIN Nursing Triage Note: Pt ambulates to [facility] 10 with cane with c/o left foot pain after wound care today. Pt states he has an infection and it's caused more pain. Pt has dressing applied to foot on arrival. Nursing Sepsis Screen: No Definite Risk Source: patient Exam Limitations: no limitations History of Present Illness Date Seen by Provider: Nov 19, 2019 Time Seen by Provider: 04:00 Initial Comments The patient resents to ER by private conveyance from home with chief complaint of progressively worsening pain over the past several in his left lower extremity radiating down his foot and up to his ankle. He has a wound on the plantar surface of his distal foot between the second and third toes for the past 10-14 days. He just went to urgent care last week and started antibiotics about 7 days ago, clindamycin and Flagyl. He went to his first wound care appointment with Dr. Markham on , 6 days ago. Today however his noticed when she was managing his foot that is having increasing swelling redness and tenderness associated with the wound and the second toe. The wound is packed by wound care, padded and dressed and he has an orthopedic shoe that he's been wearing. He is a type II diabetic. He follows with Dr. Alvarenga at [facility]. He does not know what his A1c is. He's been using ibuprofen for his pain with modest relief. He does not know if he has any kidney dysfunction. He denies any history of heart disease. He has not had any fever or chills. Normal appetite and denies nausea or vomiting. Allergies and Home Medications Allergies Coded Allergies: No Known Drug Allergies (Unverified , 10/12/17) Home Medications Amlodipine Besylate 5 Mg Tablet, 5 MG PO DAILY, (Reported) Aspirin 81 Mg Tab.chew, 81 MG PO DAILY, (Reported) Benztropine Mesylate 0.5 Mg Tablet, 0.5 MG PO PRN, (Reported) Cetirizine HCl 10 Mg Tablet, 10 MG PO DAILY, (Reported) Furosemide 40 Mg Tablet, 40 MG PO DAILY, (Reported) Furosemide 40 Mg Tablet, 20 MG PO DAILY 1600, (Reported) Haloperidol 2 Mg Tablet, 2 MG PO PRN, (Reported) Insulin Aspart 300 Units/3 Ml Solution, UNITS SQ TID SSI, (Reported) Insulin Glargine,Hum.rec.anlog 100 Unit/1 Ml Insuln.pen, 100 UNIT SQ BID, (Reported) Lisinopril 40 Mg Tablet, 40 MG PO DAILY, (Reported) Metformin HCl 850 Mg Tablet, 1,000 MG PO BID, (Reported) Multivitamin 1 Each Tablet, 1 EACH PO DAILY, (Reported) Omeprazole 40 Mg Capsule.dr, 40 MG PO BID Prescribed by: OSMAN JUÁREZ on 10/06/17 175 Omeprazole 40 Mg Capsule.dr, 40 MG PO DAILY Prescribed by: GILBERT ROACH on 01/08/181819 Oxycodone HCl/Acetaminophen 1 Each Tablet, 1 EACH PO PRN, (Reported) Paliperidone Palmitate 819 Mg/2.625 Ml Syringe, 819 MG IM EVERY 3 MONTHS, (Reported) Potassium Chloride 10 Meq Tablet.er, 10 MEQ PO DAILY, (Reported) Sucralfate 1 Gm Tablet, 1 GM PO QID Crush to make slurry with 10 mL water. Take 30 minutes before meals and bed Prescribed by: OSMAN JUÁREZ on 10/06/17 174 Sucralfate 1 Gm Tablet, 1 GM PO ACHS Prescribed by: GILBERT ROACH on 01/08/181819 Patient Home Medication List Home Medication List Reviewed: Yes Review of Systems Constitutional: No chills, No diaphoresis EENTM: No ear pain, No eye pain Respiratory: No cough, No short of breath Cardiovascular: No chest pain, No edema, No Hx of Intervention Gastrointestinal: No abdominal pain, No nausea, No vomiting Genitourinary: No discharge, No dysuria Musculoskeletal: see HPI; No back pain, No gout; joint pain (foot left) Skin: No pruritus, No rash Psychiatric/Neurological: Denies Headache, Denies Numbness; Paresthesia (bilateral lower extremity polyneuropathy) All Other Systems Reviewed Negative Unless Noted: Yes Past Ykpauvp-Ewqirt-Amkhlk Hx Patient Social History Alcohol Use: Rarely Uses Recreational Drug Use: No (denies) Smoking Status: Former Smoker Type Used: Cigarettes Former Smoker, Quit: Oct 08, 1996 Recent Foreign Travel: No Contact w/Someone Who Travel: No Recent Infectious Disease Expo: No Recent Hopitalizations: No Immunizations Up To Date Tetanus Booster (TDap): Unknown PED Vaccines UTD: No Date of Pneumonia Vaccine: Oct 08, 2010 Seasonal Allergies Seasonal Allergies: Yes Past Medical History Surgeries: Yes (PANCREAS STENT-HAS BEEN REMOVED, R KNEE X2, L KNEE ) Gallbladder, Orthopedic, Tonsillectomy Respiratory: Yes Sleep Apnea Currently Using CPAP: No Currently Using BIPAP: No Cardiac: Yes Chronic Edema/Swelling, Hypertension Neurological: No Reproductive Disorders: No Sexually Transmitted Disease: No HIV/AIDS: No Genitourinary: No Gastrointestinal: Yes (BLOOD IN STOOLS) Gastroesophageal Reflux, Chronic Constipation, Pancreatitis, Chronic Diarrhea Musculoskeletal: Yes (BOTH KNEES) Arthritis Endocrine: Yes (Morbid obesity) Diabetes, Insulin dep HEENT: No Loss of Vision: Bilateral Hearing Impairment: Denies Cancer: No Psychosocial: Yes Anxiety, Schizophrenia, Depression Integumentary: No Blood Disorders: No Adverse Reaction/Blood Tranf: No (N/A) Family Medical History Alzheimer's disease 19 MOTHER Arthritis 19 FATHER Cardiovascular disease 19 FATHER Dementia 19 MOTHER Hypertension 19 FATHER Myocardial infarction G8 BROTHER Parkinson's disease 19 MOTHER Prostate cancer 19 FATHER No Family History of: AIDS Abdominal aortic aneurysm Mitchell's disease Alcoholism Aphasia Asthma Cancer of mouth Cataracts Colon cancer Completed stroke Congenital disease Congenital heart disease Coronary thrombosis Cystic fibrosis Deafness or hearing loss Diabetes mellitus Drug abuse Dysphasia Fibrocystic disease of breast Gastroenteritis Glaucoma Headache disorder Hypercholesterolemia Infertility Kidney disease Neoplasm Not obtainable due to adoption Osteoporosis Psychosocial problem Respiratory disorder Seizure disorder Severe allergy Thyroid disease Tuberculosis Visual disorder Heart Disease, CAD Under 55 Years Old, Hypertension, Vascular Disease, Other Conditions/Hx Physical Exam Vital Signs Vital Signs - First Documented 11/19/19 03:42 Temp 36.5 Pulse 103 Resp 20 B/P (MAP) 150/76 (100) Pulse Ox 97 O2 Delivery Room Air Capillary Refill : Less Than 3 Seconds Height, Weight, BMI Height: 5'9.00" Weight: 389lbs. 0.0oz. [id number]; 46.00 BMI Method:Stated General Appearance: mild distress, obese, other (chronically ill) HEENT: PERRL/EOMI, normal ENT inspection; No pharynx normal (oropharynx is dry) Neck: full range of motion, supple, normal inspection Cardiovascular: normal peripheral pulses, regular rate, rhythm, tachycardia (105), other (capillary refill left foot 3 seconds. Dorsal pedal pulse 3 out of 4 symmetric to right foot.) Respiratory: lungs clear, normal breath sounds, no respiratory distress, no accessory muscle use Feet: left foot infection, left foot pain, left foot soft tissue tenderness, left foot swelling, left foot other (erythema surrounding a wound that is packed with iodoform gauze and involving the distal head of the second and third metatarsal region as well as second and third toes. Red, hot, swollen, tender. Wound is approximately 1 x 2 cm with a 6 mm opening.) Neurologic/Tendon: responds to pain, sensory deficit (lower extremity paresthesias) Neurologic/Psychiatric: alert, normal mood/affect, oriented x 3 Skin: warm/dry, other (erythema, warmth left foot) Progress/Results/Core Measures Results/Orders Lab Results Laboratory Tests Test 11/19/19 04:30 11/19/19 04:52 Range/Units White Blood Count 17.4 H 4.3-11.0 10^3/uL Red Blood Count 5.22 4.35-5.85 10^6/uL Hemoglobin 15.3 13.3-17.7 G/DL Hematocrit 45 40-54 % Mean Corpuscular Volume 86 80-99 FL Mean Corpuscular Hemoglobin 29 25-34 PG Mean Corpuscular Hemoglobin Concent 34 32-36 G/DL Red Cell Distribution Width 14.1 10.0-14.5 % Platelet Count 244 130-400 10^3/uL Mean Platelet Volume 10.2 7.4-10.4 FL Neutrophils (%) (Auto) 81 H 42-75 % Lymphocytes (%) (Auto) 9 L 12-44 % Monocytes (%) (Auto) 9 0-12 % Eosinophils (%) (Auto) 1 0-10 % Basophils (%) (Auto) 0 0-10 % Neutrophils # (Auto) 14.1 H 1.8-7.8 X 10^3 Lymphocytes # (Auto) 1.6 1.0-4.0 X 10^3 Monocytes # (Auto) 1.5 H 0.0-1.0 X 10^3 Eosinophils # (Auto) 0.2 0.0-0.3 10^3/uL Basophils # (Auto) 0.0 0.0-0.1 10^3/uL Neutrophils % (Manual) 76 % Lymphocytes % (Manual) 8 % Monocytes % (Manual) 8 % Eosinophils % (Manual) 1 % Band Neutrophils 7 % Blood Morphology Comment NORMAL Prothrombin Time 15.7 H 12.2-14.7 SEC INR Comment 1.2 0.8-1.4 Activated Partial Thromboplast Time 34 24-35 SEC Sodium Level 130 L 135-145 MMOL/L Potassium Level 4.2 3.6-5.0 MMOL/L Chloride Level 94 L 98-107 MMOL/L Carbon Dioxide Level 20 L 21-32 MMOL/L Anion Gap 16 H 5-14 MMOL/L Blood Urea Nitrogen 17 7-18 MG/DL Creatinine 0.84 0.60-1.30 MG/DL Estimat Glomerular Filtration Rate > 60 BUN/Creatinine Ratio 20 Glucose Level 500 *H 70-105 MG/DL Lactic Acid Level 2.00 0.50-2.00 MMOL/L Calcium Level 10.3 H 8.5-10.1 MG/DL Corrected Calcium 10.5 H 8.5-10.1 MG/DL Total Bilirubin 1.0 0.1-1.0 MG/DL Aspartate Amino Transf (AST/SGOT) 19 5-34 U/L Alanine Aminotransferase (ALT/SGPT) 22 0-55 U/L Alkaline Phosphatase 135 40-136 U/L Total Protein 7.3 6.4-8.2 GM/DL Albumin 3.7 3.2-4.5 GM/DL Urine Color YELLOW Urine Clarity CLEAR Urine pH 6.0 5-9 Urine Specific Mcdougal 1.010 L 1.016-1.022 Urine Protein NEGATIVE NEGATIVE Urine Glucose (UA) 3+ H NEGATIVE Urine Ketones 2+ H NEGATIVE Urine Nitrite NEGATIVE NEGATIVE Urine Bilirubin NEGATIVE NEGATIVE Urine Urobilinogen 0.2 < = 1.0 MG/DL Urine Leukocyte Esterase NEGATIVE NEGATIVE Urine RBC (Auto) NEGATIVE NEGATIVE Urine RBC NONE /HPF Urine WBC NONE /HPF Urine Squamous Epithelial Cells 0-2 /HPF Urine Crystals NONE /LPF Urine Bacteria NEGATIVE /HPF Urine Casts NONE /LPF Urine Mucus NEGATIVE /LPF Urine Culture Indicated NO Urine Opiates Screen NEGATIVE NEGATIVE Urine Oxycodone Screen NEGATIVE NEGATIVE Urine Methadone Screen NEGATIVE NEGATIVE Urine Propoxyphene Screen NEGATIVE NEGATIVE Urine Barbiturates Screen NEGATIVE NEGATIVE Ur Tricyclic Antidepressants Screen NEGATIVE NEGATIVE Urine Phencyclidine Screen NEGATIVE NEGATIVE Urine Amphetamines Screen POSITIVE H NEGATIVE Urine Methamphetamines Screen POSITIVE H NEGATIVE Urine Benzodiazepines Screen NEGATIVE NEGATIVE Urine Cocaine Screen NEGATIVE NEGATIVE Urine Cannabinoids Screen NEGATIVE NEGATIVE My Orders Orders - ANJUM SY Cbc With Automated Diff (11/19/19 04:13) Comprehensive Metabolic Panel (11/19/19 04:13) Blood Culture (11/19/19 04:13) Sputum Culture (11/19/19 04:13) Urinalysis (11/19/19 04:13) Urine Culture (11/19/19 04:13) Protime With Inr (11/19/19 04:13) Partial Thromboplastin Time (11/19/19 04:13) Chest 1 View, Ap/Pa Only (11/19/19 04:13) Ed Iv/Invasive Line Start (11/19/19 04:13) Ed Iv/Invasive Line Start (11/19/19 04:13) Vital Signs Adult Sepsis Patie Q15M (11/19/19 04:13) O2 (11/19/19 04:13) Remove Rings In Anticipation O (11/19/19 04:13) Lactic Acid Analyzer (11/19/19 04:13) Ns Iv 1000 Ml (Sodium Chloride 0.9%) (11/19/19 04:13) Piperacillin Sodium/Tazobactam (Zosyn Vi (11/19/19 04:15) Vancomycin Injection (Vancomycin Injecti (11/19/19 04:15) Pharmacy To Dose (Pharmacy To Dose) (11/19/19 04:15) Ed Iv/Invasive Line Start (11/19/19 04:13) Ns Iv 1000 Ml (Sodium Chloride 0.9%) (11/19/19 04:13) Toe(S) (11/19/19 04:13) Hydrocodone/Apap 5/325 Tablet (Lortab 5 (11/19/19 04:15) Drug Screen Stat (Urine) (11/19/19 04:17) Manual Differential (11/19/19 04:30) Insulin Determir (Per Unit) (Levemir (Pe (11/19/19 05:15) Insulin Aspart (Novolog) (Novolog (Charg (11/19/19 05:15) Ketorolac Injection (Toradol Injection) (11/19/19 05:30) Gabapentin Capsule/Tablet (Neurontin Cap (11/19/19 05:30) Medications Given in ED Current Medications Medications Dose Ordered Sig/Shadia Route Start Time Stop Time Status Last Admin Dose Admin Acetaminophen/ Hydrocodone Bitart 1 tab ONCE ONCE PO 11/19/19 04:15 11/19/19 04:18 DC 11/19/19 04:58 1 TAB Insulin Aspart 40 unit ONCE ONCE SC 11/19/19 05:15 11/19/19 05:16 DC 11/19/19 05:12 40 UNIT Insulin Detemir 75 unit ONCE ONCE SQ 11/19/19 05:15 11/19/19 05:16 DC 11/19/19 05:12 75 UNIT Ketorolac Tromethamine 30 mg ONCE ONCE IVP 11/19/19 05:30 11/19/19 05:31 DC 11/19/19 05:36 30 MG Piperacillin Sod/ Tazobactam Sod 4.5 gm/Sodium Chloride 100 ml @ 200 mls/hr ONCE ONCE IV 11/19/19 04:15 11/19/19 04:44 DC 11/19/19 04:59 200 MLS/HR Vital Signs/I&O 11/19/19 03:42 Temp 36.5 Pulse 103 Resp 20 B/P (MAP) 150/76 (100) Pulse Ox 97 O2 Delivery Room Air Blood Pressure Mean: 100 Progress Progress Note : Time: 04:27 Progress Note Patient's tachycardic and has cellulitis looking appearance to the left foot surrounding the wound. Good control of his diabetes as well as IV antibiotics are probably indicated. He is likely to be septic though we'll do a septic workup. We have selected Zosyn and vancomycin. We have adjusted his ideal body weight to 95 kg. 2 L would be greater than 20 mL/kg. Hydrocodone for pain. Plain film to examine the underlying bones of breath and some destructive lesions consistent with osteomyelitis. Diagnostic Imaging Diagonstic Imaging: Xray Plain Films/CT/US/NM/MRI: chest (1v) Comments No acute cardiopulmonary processes. Reviewed: Reviewed by Me Diagonstic Imaging: Xray Plain Films/CT/US/NM/MRI: other (left toes) Comments No acute osseous lesions. Reviewed: Reviewed by Me Departure Communication (Admissions) Time/Spoke to Admitting Phy: 05:[address] Gonzales and she agrees to admit the patient to the floor with vancomycin, Zosyn, Lovenox. Consulted Dr. Coates, wound care in the morning. Impression Primary Impression: Cellulitis of left foot Additional Impressions: Sepsis Qualified Codes: A41.9 - Sepsis, unspecified organism Hyperglycemia due to type 2 diabetes mellitus Qualified Codes: E11.65 - Type 2 diabetes mellitus with hyperglycemia; Z79.4 - jail (current) use of insulin Methamphetamine abuse Disposition: ADMITTED INPATIENT Condition: Stable Admissions Decision to Admit Reason: Admit from ER (General) Decision to Admit/Date: Nov 19, 2019 Time/Decision to Admit Time: 05:00 Departure-Patient Inst. Referrals: [facility] [place] (PCP) Primary Care Physician RIAZ ALVARENGA MD (Family) Primary Care Physician ANJUM SY Nov 19, 2019 04:22
[2019-11-19 04:37] LABS: BASOPHILS % (AUTO) 0 % (0-10); EOSINOPHILS # (AUTO) 0.2 10^3/uL (0.0-0.3); EOSINOPHILS % (AUTO) 1 % (0-10); HEMATOCRIT 45 % (40-54); HEMOGLOBIN 15.3 G/DL (13.3-17.7); LYMPHOCYTES # (AUTO) 1.6 X 10^3 (1.0-4.0); LYMPHOCYTES % (AUTO) 9 % (12-44); MEAN CORPUSCULAR HEMOGLOBIN 29 PG (25-34); MEAN CORPUSCULAR HGB CONC 34 G/DL (32-36); MEAN CORPUSCULAR VOLUME 86 FL (80-99); MEAN PLATELET VOLUME 10.2 FL (7.4-10.4); MONOCYTES # (AUTO) 1.5 X 10^3 (0.0-1.0); MONOCYTES % (AUTO) 9 % (0-12); NEUTROPHILS # (AUTO) 14.1 X 10^3 (1.8-7.8); NEUTROPHILS % (AUTO) 81 % (42-75); PLATELET COUNT 244 10^3/uL (130-400); RED CELL DISTRIBUTION WIDTH 14.1 % (10.0-14.5); WHITE BLOOD COUNT 17.4 10^3/uL (4.3-11.0)
[2019-11-19 04:52] LABS: INR 1.2 (0.8-1.4); PROTHROMBIN TIME PATIENT 15.7 SEC (12.2-14.7)
[2019-11-19 04:58] LABS: ALANINE AMINOTRANSFERASE 22 U/L (0-55); ALBUMIN 3.7 GM/DL (3.2-4.5); ALKALINE PHOSPHATASE 135 U/L (40-136); BUN/CREATININE RATIO 20; CALCIUM 10.3 MG/DL (8.5-10.1); CARBON DIOXIDE 20 MMOL/L (21-32); CHLORIDE 94 MMOL/L (98-107); CREATININE SERUM 0.84 MG/DL (0.60-1.30); GFR ESTIMATED > 60; POTASSIUM 4.2 MMOL/L (3.6-5.0); SODIUM 130 MMOL/L (135-145); TOTAL PROTEIN 7.3 GM/DL (6.4-8.2)
--- NOTE | 2019-11-19 05:00 | NUR ---
Note jack in EDM - 11/19/19 at 0511 by ASHLEY OFFERED TO EXCHANGE ER CART FOR INPATIENT TYPE HOSPITAL BED DURING WAIT TIME AND PT STATES SHE IS FINE FOR THE TIME BEING. PT ABLE TO SELF TURN. DAUGHTERS AT BEDSIDE. LIGHTS TURNED DOWN AND PT STATES SHE IS GOING TO ATTEMPT TO REST/SLEEP.
[2019-11-19 05:02] LABS: BAND NEUTROPHILS 7 %; EOSINOPHILS % (MANUAL) 1 %; GLUCOSE 500 MG/DL (70-105); LYMPHOCYTES % (MANUAL) 8 %; MONOCYTES % (MANUAL) 8 %; NEUTROPHILS % (MANUAL) 76 %; RBC MORPH NORMAL
[2019-11-19] MEDS ORDERED: inSUlin ASPART (NovoLOG) 1 UNIT/0.01 ML (CHARGE PER UNIT) SC ONE (05:15)
[2019-11-19 05:26] LABS: BILIRUBIN,URINE NEGATIVE (NEGATIVE); CLARITY,URINE CLEAR; COLOR,URINE YELLOW; GLUCOSE, URINE (UA) 3+ (NEGATIVE); KETONES,URINE 2+ (NEGATIVE); LEUKOCYTE ESTERASE ,URINE NEGATIVE (NEGATIVE); NITRITE,URINE NEGATIVE (NEGATIVE); PROTEIN,URINE NEGATIVE (NEGATIVE)
[2019-11-19] MEDS ORDERED: KETOROLAC 30 MG/ML VIAL IVP ONE (05:30)
[2019-11-19] MEDS ORDERED: GABAPENTIN 300 MG (NEURONTIN) CAP PO ONE (05:30)
[2019-11-19] MEDS: VANCOMYCIN INJECTION 1,000 MG in NS (IVPB) 250 ML IV SCH (05:38)
[2019-11-19 05:40] LABS: AMPHETAMINE SCREEN, URINE POSITIVE (NEGATIVE); BARBITURATE SCREEN URINE NEGATIVE (NEGATIVE); BENZODIAZEPINES SCREEN URINE NEGATIVE (NEGATIVE); CANNABINOID SCREEN, URINE NEGATIVE (NEGATIVE); COCAINE SCREEN URINE NEGATIVE (NEGATIVE); METHADONE STAT NEGATIVE (NEGATIVE); METHAMPHETAMINE SCREEN URINE S POSITIVE (NEGATIVE); OPIATE SCREEN URINE NEGATIVE (NEGATIVE); OXYCODONE STAT NEGATIVE (NEGATIVE); PROPOXYPHENE STAT NEGATIVE (NEGATIVE); TRICYCLIC ANTIDEPRESSANTS SCRE NEGATIVE (NEGATIVE)
[2019-11-19 05:41] LABS: BACTERIA,URINE NEGATIVE /HPF; SQUAMOUS EPITHELIAL CELL,UR 0-2 /HPF
--- NOTE | 2019-11-19 06:03 | Diagnostic Imaging Report ---
INDICATION: Foot pain. COMPARISON: 09/24/2017. FINDINGS: Single view of the chest demonstrates clear lungs bilaterally. The heart is normal. There is no pneumothorax. Osseous structures normal. IMPRESSION: Negative chest. Dictated by: Dictated on workstation # [id number]
--- NOTE | 2019-11-19 06:35 | Diagnostic Imaging Report ---
INDICATION: Foot pain COMPARISON: None FINDINGS: 3 views of the left foot demonstrate no fracture or dislocation. Articular surfaces are normal. No bony erosion or foreign body seen. IMPRESSION: Negative left foot Dictated by: Dictated on workstation # [id number]
--- NOTE | 2019-11-19 07:00 | NUR ---
SUSSY GATES admitted to room 410-1, with an admitting diagnosis of CELLULITIS L FOOT/SEPSIS, on 11/19/19 from ED via , accompanied by STAFF. SUSSY GATES introduced to surroundings, call light, bed controls, phone, TV, temperature control, lights, meal times, smoking policy, visitor policy, side rail policy, bathrooms and showers. Patient Rights given to patient in the handbook. SUSSY GATES verbalizes understanding that [facility] is not responsible for the loss or damage to any personal effects or valuables that are kept in the patients posession during their hospitalization. SUSSY GATES verbalizes understanding of Interdisciplinary Patient Education. Patient and/or family were informed about the Rapid Response Team and its purpose.
[2019-11-19] MEDS ORDERED: CATHETER FLUSH 10 ML SYR IV PRN (07:15)
[2019-11-19] MEDS ORDERED: ONDANSETRON 4 MG/2 ML (SDV) Z0FRAN IV PRN (07:15)
[2019-11-19] MEDS: NS W/KCL 20 MEQ/L 1,000 ML IV SCH ×3 (07:50→17:08)
[2019-11-19] MEDS ORDERED: VANCOMYCIN 1500 MG/NS 500 ML IVPB IV NR ×2 (08:00)
[2019-11-19] MEDS ORDERED: CLIN300C11 PO (08:28)
[2019-11-19] MEDS ORDERED: FURO40TA4 PO (08:28)
[2019-11-19] MEDS ORDERED: METF-399 PO (08:28)
[2019-11-19] MEDS ORDERED: CYCL10TA9 PO (08:28)
[2019-11-19] MEDS ORDERED: AMLO10TA7 PO (08:28)
[2019-11-19] MEDS ORDERED: DULA1.5P2 SC (08:28)
[2019-11-19] MEDS ORDERED: CETI10TA21 PO (08:28)
[2019-11-19] MEDS ORDERED: METR-145 PO (08:28)
[2019-11-19] MEDS ORDERED: RT-ALBUINH PO (08:28)
--- NOTE | 2019-11-19 08:37 | NUR ---
SPOKE WITH PT (HE HAD ALL HIS TABLETS WITH HIM IN A HUSKY UTILITY BAG) WENT THRU THE EXT MED HISTORY AND CALLED [facility] TO COMPLETE THE MED REC, PT WAS ABLE TO TELL ME HOW/WHEN HE TAKES ALL HIS MEDICATIONS. IN THE PATIENTS MED BAG HE HAD A BOTTLE OF OXYCODONE AND BENZONATATE- BOTH THESE BOTTLES WERE EMPTY AND PT SAYS HE NO LONGER TAKES EITHER. PT ALSO HAD A BOTTLE OF IBUPROFEN 600MG IN THE BAG HOWEVER THE DATE ON THE BOTTLE SAYS 11-12-2018- DUE TO THIS REASON I LEFT IT OFF THE MED REC HYDROCODONE/APAP IS LISTED ON THE EXT MED HISTORY FOR BEING FILLED EARLIER THIS MONTH, BUT WHEN I CALLED [facility] THEY SAID THEY DID NOT HAVE ANYTHING. ALONG WITH TRULICITY WEEKLY INJECTIONS THE PT SAYS HE USES LANTUS (75 UNITS BID) AND NOVOLOG (50 UNITS BEFORE MEALS) HOWEVER [facility] HAS NOT FILLED THESE SINCE (NOVOLOG) AND (LANTUS). SINCE BOTH THE SCRIPTS ARE NOW I LEFT THEM BOTH OFF THE MED REC. PT ALSO TAKES ZYRTEC DISPENSED FROM THE PHARMACY- IT WAS LAST FILLED ON 09-25-2019#90 OTC: NONE
--- NOTE | 2019-11-19 08:53 | NUR ---
DR GUERRERO NOTIFIED OF CONSULT
[2019-11-19] MEDS: HYDROcodone/APAP 7.5 MG/325 MG (LORTAB, LORCET PLUS) TABLET PO PRN ×3 (10:09→17:07)
--- NOTE | 2019-11-19 10:09 | History & Physical-Hospitalist ---
[facility] 11/19/19 1009: History of Present Illness HPI/Chief Complaint Patient reported to ED after pain in his L foot he says was "really bad". About 10 days ago he stepped on a piece of steel and didn't notice it. A few days later he started feeling pain and went to [facility]. [facility] started him on some abx and referred him to Dr. Kelsey. Dr. Kelsey saw him this past and did some wound maintenance and packed it. He has been changing the packing 2x per day. He was scheduled to see Dr. Kelsey again in one week but he says he was in too much pain. The pain is around the wound and it shoots up his leg intermittently. He had some nausea he attributes to pain but no vomiting. Patient has history of DM. This has never happened to him before. Pain medication on admission has helped. Source: patient Exam Limitations: no limitations Date Seen 11/19/19 Attending Physician Robin Rogel DO [facility] Referring Physician Date of Admission Nov 19, 2019 at 05:30 Home Medications & Allergies Home Medications Reviewed patient Home Medication Reconciliation performed by pharmacy medication reconciliations avionics electronics technician and/or nursing. Patients Allergies have been reviewed. Allergies Allergies Coded Allergies No Known Drug Allergies (Unverified10/12/17) Past Tpaqepf-Yzkons-Vfaqdh Hx Patient Social History Alcohol Use: Rarely Uses Recreational Drug Use: No (denies) Smoking Status: Former Smoker Former Smoker, Quit: Oct 08, 1996 Type Used: Cigarettes Recent Foreign Travel: No Contact w/other who traveled: No Recent Hopitalizations: No Recent Infectious Disease Expo: No Immunizations Up To Date Tetanus Booster (TDap): Unknown Pediatric: No Date of Pneumonia Vaccine: Oct 08, 2010 Seasonal Allergies Seasonal Allergies: Yes Past Medical History Surgeries: Abdominal (Stent placed in pancreatic duct), Gallbladder, Orthopedic (knee scopes), Tonsillectomy unknown procedure to L foot between 2nd and 3rd toe Respiratory: COPD, Pneumonia, Sleep Apnea Currently Using CPAP: No Currently Using BIPAP: No Cardiac: Chronic Edema/Swelling, Hypertension Reproductive: No Sexually Transmitted Disease: No HIV/AIDS: No Gastrointestinal: Gastroesophageal Reflux, Chronic Constipation, Pancreatitis, Chronic Diarrhea Musculoskeletal: Arthritis Endocrine: Diabetes, Insulin dep Loss of Vision: Bilateral Hearing Impairment: Denies Psychosocial: Anxiety, Schizophrenia, Depression History of Blood Disorders: No Adverse Reaction to Blood Sidhu: No (N/A) Family History Alzheimer's disease 19 MOTHER Arthritis 19 FATHER Cardiovascular disease 19 FATHER Dementia 19 MOTHER Hypertension 19 FATHER Myocardial infarction G8 BROTHER Parkinson's disease 19 MOTHER Prostate cancer 19 FATHER No Family History of: AIDS Abdominal aortic aneurysm Jeff Davis's disease Alcoholism Aphasia Asthma Cancer of mouth Cataracts Colon cancer Completed stroke Congenital disease Congenital heart disease Coronary thrombosis Cystic fibrosis Deafness or hearing loss Diabetes mellitus Drug abuse Dysphasia Fibrocystic disease of breast Gastroenteritis Glaucoma Headache disorder Hypercholesterolemia Infertility Kidney disease Neoplasm Not obtainable due to adoption Osteoporosis Psychosocial problem Respiratory disorder Seizure disorder Severe allergy Thyroid disease Tuberculosis Visual disorder Heart Disease, CAD Under 55 Years Old, Hypertension, Vascular Disease, Other Conditions/Hx Review of Systems Constitutional: No chills, No diaphoresis EENTM: No ear pain, No eye pain, No hoarseness, No mouth pain, No throat pain Respiratory: No orthopnea, No short of breath Cardiovascular: No chest pain, No palpitations Gastrointestinal: No abdominal pain, No constipation, No diarrhea Genitourinary: No dysuria, No hematuria Musculoskeletal: No back pain, No muscle weakness Skin: No change in color, No hx of skin cancer; other (L leg swelling around wo und, erythema) Psychiatric/Neurological: Headache, Tingling (L foot/Leg) Physical Exam Physical Exam Vital Signs Vital Signs - First Documented 11/19/19 03:42 Temp 36.5 Pulse 103 Resp 20 B/P (MAP) 150/76 (100) Pulse Ox 97 O2 Delivery Room Air Capillary Refill : Less Than 3 Seconds Height, Weight, BMI Height: 5'9.00" Weight: 389lbs. 0.0oz. 176.572795as; 43.47 BMI Method:Stated General Appearance: No Apparent Distress, Obese Eyes: Bilateral Eye PERRL, Bilateral Eye EOMI HEENT: PERRL/EOMI, Pharynx Normal Neck: Non Tender, Supple Respiratory: Chest Non Tender, No Respiratory Distress, Decreased Breath Sounds Cardiovascular: Regular Rate, Rhythm, No Gallop, No Murmur Gastrointestinal: Normal Bowel Sounds, Non Tender, Soft Rectal: Deferred Back: No CVA Tenderness, No Vertebral Tenderness Extremity: Other (L leg wound) Neurologic/Psychiatric: Alert, Oriented x3 Skin: Normal Color, Erythema (Around L foot wound), Tattoos/Piercings Lymphatic: No Adenopathy Results Results/Procedures Labs Laboratory Tests 11/19/19 04:30 Patient resulted labs reviewed. Assessment/Plan Assessment and Plan L foot cellulitis r/o osteomyelitis DM Hyperglycemia Peripheral neuropathy HTN Hx of pancreatitis Hx of tobacco abuse Fam hx of prostate cancer Continue abx - pip tazo/vanco Foot xray to assess for osteomyelitis DVT prophylaxis - levonox Novolog for glucose control Consult Dr. Kelesy for wound follow up and management Clinical Quality Measures DVT/VTE Risk/Contraindication: Risk Factor Score Per Nursin RFS Level Per Nursing on Admit: 4+=Very High ROBIN ROGEL DO 11/19/19 1421: History of Present Illness HPI/Chief Complaint CC: Left foot cellulitis with diabetic ulcer HPI: This is a 49yoWM clinic pt of [facility] with a PMH of diabetes noncompliant with insulin regimen at home who presents with left foot pain after being seen by Dr. Kelsey last week, placed on Doxycycline and Flagyl but failed that treatment but admitted for IV antibiotics and placed on Vanc and Zosyn and Hgb A1C was noted to be 14. I did confer with Dr. Kelsey and I did increase his insulin to a sliding scale C with Levemir of 20 units twice daily. Time Seen by a Provider: 09:30 Past Yhqkvqq-Rdctsr-Mvgywy Hx Past Med/Social Hx: Reviewed Nursing Past Med/Soc Hx, Reviewed and Corrections made Patient Social History Employed/Student: unemployed Alcohol Use: Past History Smoking Status: Smoker Current Status [facility] Past Medical History Endocrine: Diabetes, Insulin dep Psychosocial: Depression Family History Alzheimer's disease 19 MOTHER Arthritis 19 FATHER Cardiovascular disease 19 FATHER Dementia 19 MOTHER Hypertension 19 FATHER Myocardial infarction G8 BROTHER Parkinson's disease 19 MOTHER Prostate cancer 19 FATHER No Family History of: AIDS Abdominal aortic aneurysm Mitchell's disease Alcoholism Aphasia Asthma Cancer of mouth Cataracts Colon cancer Completed stroke Congenital disease Congenital heart disease Coronary thrombosis Cystic fibrosis Deafness or hearing loss Diabetes mellitus Drug abuse Dysphasia Fibrocystic disease of breast Gastroenteritis Glaucoma Headache disorder Hypercholesterolemia Infertility Kidney disease Neoplasm Not obtainable due to adoption Osteoporosis Psychosocial problem Respiratory disorder Seizure disorder Severe allergy Thyroid disease Tuberculosis Visual disorder Physical Exam Physical Exam General Appearance: No Apparent Distress Eyes: Right Eye Normal Inspection, Right Eye PERRL HEENT: PERRL/EOMI, TMs Normal, Normal ENT Inspection, Pharynx Normal, Moist Mucous Membranes Neck: Full Range of Motion, Normal Inspection, Non Tender Respiratory: Chest Non Tender, Lungs Clear, Normal Breath Sounds, No Accessory Muscle Use, No Respiratory Distress Cardiovascular: Regular Rate, Rhythm, No Edema, No Gallop, No JVD, No Murmur, Normal Peripheral Pulses Gastrointestinal: Normal Bowel Sounds, No Organomegaly, No Pulsatile Mass, Non Tender, Soft Back: Normal Inspection, No CVA Tenderness, No Vertebral Tenderness Extremity: Normal Capillary Refill, Normal Inspection, Normal Range of Motion, Non Tender, No Calf Tenderness, No Pedal Edema, Other (Left foot plantar ulcer with dressing intact) Neurologic/Psychiatric: Alert, Oriented x3, No Motor/Sensory Deficits, Normal Mood/Affect Skin: Normal Color, Warm/Dry Lymphatic: No Adenopathy Assessment/Plan Admission Diagnosis Assessment: Left DM foot ulcer with cellulitis DM OOC hga1c 14% Obesity Non-compliance Plan: DM management IV abx Dr Kelsey appreciated Admission Status: Inpatient Order (span 2 midnights) Reason for Inpatient Admission: DM ulcer will require at least 3 days Assessment and Plan Assessment: Left diabetic foot ulcer with cellulitis Smoker Diabetes mellitus noncompliant with HgbA1c of 14 Plan: IV antibiotics Dr. 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 I reviewed and verified all information documented by the medical student and made modifications to such information, when appropriate. I personally performed the physical exam and medical decision making. Robin Rogel Nov 19, 2019,19:56 ROTHSRISAE HENDRIX Nov 19, 2019 10:09 ROBIN ROGEL DO Nov 19, 2019 14:21
--- NOTE | 2019-11-19 11:18 | NUR ---
PHARM CALL ED FOR IV ZOYSN
[2019-11-19] MEDS: PIPERACILLIN/TAZO 4.5 GM/NS 100 ML IV SCH ×4 (11:42→21:07)
[2019-11-19] MEDS: inSUlin ASPART (NovoLOG) 1 UNIT/0.01 ML (CHARGE PER UNIT) SC SCH ×3 (11:45→21:06)
--- NOTE | 2019-11-19 12:09 | NUR ---
RD ASSESSMENT PMHx: T2DM; HTN; GERD; pancreatitis; chronic diarrhea PT INTERACTION: Pt was awake and pleasant during nutrition assessment. Pt states current appetite is "so-so" and has been this way for about 1w. Note PO intake of 100% x1meal, per chart review. Pt states following a regular diet at home, and has no issues with chewing/swallowing food. Pt states some issues with nausea, but they are usually associated with pain in his foot. Pt states no recent issues with constipation/diarrhea, and that his last BM was 11/17. Note pt not currently on bowel regimen per chart review. Pt states recent 50# wt loss d/t illness, but could not elaborate timeframe. Note unable to determine recent wt hx, per chart review. Pt states current DM management as trying to keep it okay. Note unable to determine recent HbA1c, and note most recent glu reading of 419 this AM. Note presence of wounds on pt's left foot. ABNORMAL NUTRITION-RELATED LAB VALUES LOW: Na 130; Cl 94 HIGH: glu 419; Ca 10.3 Est. kcal needs: 1522-3794 kcal | 15-18 kcal/kg Est. Pro needs: 160-187 g Pro | 1.2-1.4 g Pro/kg (for perceived benefit to wound healing) PES STATEMENT: Inadequate protein intake (NI-5.6.1) related to increased protein needs as evidenced by presence of wounds (left foot) INTERVENTION: Continue with current diet order of CHO 60g/m 1snack diet. Add Ensure HP (vary) to meals TID. Provides 160 kcal and 16 g Pro per serving for perceived benefit to wound healing. Note pt was in pain during nutrition assessment. Will attempt to offer dietary education again prior to discharge. Will continue to follow and reassess as pt needs, intake, and status change. MONITOR/EVALUATE: PO Intake; Plan of Care; Hydration Status; Weight Status; Lab Values Johnson Valdovinos, MS, RD, LD
[2019-11-19] MEDS: fentaNYL INJECTION 100 MCG/2 ML AMP IV PRN ×4 (12:40→21:05)
[2019-11-19] MEDS: KETOROLAC 15 MG/ML VIAL IV PRN ×2 (13:12→21:05)
[2019-11-19] MEDS: GABAPENTIN 300 MG (NEURONTIN) CAP PO PRN ×2 (14:35→21:03)
[2019-11-19] MEDS: VANCOMYCIN 2000 MG/NS 500 ML IVPB IV SCH ×2 (18:14)
--- NOTE | 2019-11-19 18:16 | Wound Care Assessment ---
Wound Care Assessment Date Seen by Provider: Nov 19, 2019 Time Seen by Provider: 18:00 Chief Complaint Infected L 2nd toe. HPI The patient is a 49 year old male diabetic, who has failed out-patient management of an infected puncture wound at the base of the L 2nd toe. He was seen by this physician as an outpatient last week, and noted to have decreasing erythema on oral antibiotics. He had increasing pain and was admitted and placed on broad spectrum antibiotics. The wound is still inflamed. I am concerned that the failure of outpatient treatment may be related to an underlying deep infection. Will order MRI of L foot to R/O deep infection. Smoking Status: Smoker Current Status [facility] Recreational Drug Use: No (denies) Alcohol Use: Past History Exam Vital Signs Date Time Temp Pulse Resp B/P (MAP) Pulse Ox O2 Delivery O2 Flow Rate FiO2 11/19/19 16:15 37.2 93 20 155/88 (110) 95 Room Air Capillary Refill : Less Than 3 Seconds Results Laboratory Tests 11/19/19 04:30: White Blood Count 17.4H, Red Blood Count 5.22, Hemoglobin 15.3, Hematocrit 45, Mean Corpuscular Volume 86, Mean Corpuscular Hemoglobin 29, Mean Corpuscular Hemoglobin Concent 34, Red Cell Distribution Width 14.1, Platelet Count 244, Mean Platelet Volume 10.2, Neutrophils (%) (Auto) 81H, Lymphocytes (%) (Auto) 9L , Monocytes (%) (Auto) 9, Eosinophils (%) (Auto) 1, Basophils (%) (Auto) 0, Neutrophils # (Auto) 14.1H, Lymphocytes # (Auto) 1.6, Monocytes # (Auto) 1.5H, Eosinophils # (Auto) 0.2, Basophils # (Auto) 0.0, Neutrophils % (Manual) 76, Lymphocytes % (Manual) 8, Monocytes % (Manual) 8, Eosinophils % (Manual) 1, Band Neutrophils 7, Blood Morphology Comment NORMAL, Prothrombin Time 15.7H, INR C omment 1.2, Activated Partial Thromboplast Time 34, Sodium Level 130L, Potassium Level 4.2, Chloride Level 94L, Carbon Dioxide Level 20L, Anion Gap 16H, Blood Urea Nitrogen 17, Creatinine 0.84, Estimat Glomerular Filtration Rate > 60, BUN/Creatinine Ratio 20, Glucose Level 500*H, Lactic Acid Level 2.00, Calcium Level 10.3H, Corrected Calcium 10.5H, Total Bilirubin 1.0, Aspartate Amino Transf (AST/SGOT) 19, Alanine Aminotransferase (ALT/SGPT) 22, Alkaline Phosphatase 135, Total Protein 7.3, Albumin 3.7 11/19/19 04:52: Urine Color YELLOW, Urine Clarity CLEAR, Urine pH 6.0, Urine Specific Phillips 1.010L, Urine Protein NEGATIVE, Urine Glucose (UA) 3+H, Urine Ketones 2+H, Urine Nitrite NEGATIVE, Urine Bilirubin NEGATIVE, Urine Urobilinogen 0.2, Urine Leukocyte Esterase NEGATIVE, Urine RBC (Auto) NEGATIVE, Urine RBC NONE, Urine WBC NONE, Urine Squamous Epithelial Cells 0-2, Urine Crystals NONE, Urine Bacteria NEGATIVE, Urine Casts NONE, Urine Mucus NEGATIVE, Urine Culture Indicated NO, Urine Opiates Screen NEGATIVE, Urine Oxycodone Screen NEGATIVE, Urine Methadone Screen NEGATIVE, Urine Propoxyphene Screen NEGATIVE, Urine Barbiturates Screen NEGATIVE, Ur Tricyclic Antidepressants Screen NEGATIVE, Urine Phencyclidine Screen NEGATIVE, Urine Amphetamines Screen POSITIVEH, Urine Methamphetamines Screen POSITIVEH, Urine Benzodiazepines Screen NEGATIVE, Urine Cocaine Screen NEGATIVE, Urine Cannabinoids Screen NEGATIVE 11/19/19 06:10: Glucometer 419*H 11/19/19 10:59: Glucometer 293H 11/19/19 15:54: Glucometer 252H DIOR OLIVIA MD Nov 19, 2019 18:16
[2019-11-19] MEDS: DAKIN'S 1/4 STRENGTH (0.125%) 473 ML BTL TOP SCH (21:07)
[2019-11-20] VITALS: BP 170/76
[2019-11-20] MEDS: HYDROcodone/APAP 7.5 MG/325 MG (LORTAB, LORCET PLUS) TABLET PO PRN ×2 (02:05→08:51)
[2019-11-20] MEDS: KETOROLAC 15 MG/ML VIAL IV PRN ×2 (02:06→10:03)
[2019-11-20] MEDS: PIPERACILLIN/TAZO 4.5 GM/NS 100 ML IV SCH ×6 (04:21→18:44)
[2019-11-20] MEDS: fentaNYL INJECTION 100 MCG/2 ML AMP IV PRN ×5 (04:23→22:16)
[2019-11-20] MEDS: NS W/KCL 20 MEQ/L 1,000 ML IV SCH (04:26)
[2019-11-20] MEDS: inSUlin ASPART (NovoLOG) 1 UNIT/0.01 ML (CHARGE PER UNIT) SC SCH ×4 (04:26→22:18)
[2019-11-20] MEDS: DAKIN'S 1/4 STRENGTH (0.125%) 473 ML BTL TOP SCH ×2 (04:38→21:30)
[2019-11-20 05:05] VITALS: BP 147/72
[2019-11-20 05:06] LABS: BASOPHILS % (AUTO) 0 % (0-10); EOSINOPHILS # (AUTO) 0.3 10^3/uL (0.0-0.3); EOSINOPHILS % (AUTO) 2 % (0-10); HEMATOCRIT 40 % (40-54); HEMOGLOBIN 13.2 G/DL (13.3-17.7); LYMPHOCYTES % (AUTO) 15 % (12-44); MEAN CORPUSCULAR HEMOGLOBIN 29 PG (25-34); MEAN CORPUSCULAR HGB CONC 33 G/DL (32-36); MEAN CORPUSCULAR VOLUME 88 FL (80-99); MEAN PLATELET VOLUME 10.2 FL (7.4-10.4); MONOCYTES # (AUTO) 1.3 X 10^3 (0.0-1.0); MONOCYTES % (AUTO) 10 % (0-12); NEUTROPHILS # (AUTO) 9.7 X 10^3 (1.8-7.8); NEUTROPHILS % (AUTO) 73 % (42-75); PLATELET COUNT 233 10^3/uL (130-400); RED CELL DISTRIBUTION WIDTH 14.3 % (10.0-14.5); WHITE BLOOD COUNT 13.3 10^3/uL (4.3-11.0)
[2019-11-20 05:31] LABS: ALANINE AMINOTRANSFERASE 16 U/L (0-55); ALKALINE PHOSPHATASE 95 U/L (40-136); BILIRUBIN,TOTAL 0.5 MG/DL (0.1-1.0); BUN/CREATININE RATIO 18; CALCIUM 8.6 MG/DL (8.5-10.1); CARBON DIOXIDE 24 MMOL/L (21-32); CHLORIDE 105 MMOL/L (98-107); CREATININE SERUM 0.65 MG/DL (0.60-1.30); GFR ESTIMATED > 60; GLUCOSE 157 MG/DL (70-105); POTASSIUM 3.8 MMOL/L (3.6-5.0); SODIUM 138 MMOL/L (135-145); TOTAL PROTEIN 6.1 GM/DL (6.4-8.2)
[2019-11-20 07:36] VITALS: BP 156/70
[2019-11-20] MEDS: VANCOMYCIN 2000 MG/NS 500 ML IVPB IV SCH ×4 (08:04→17:37)
[2019-11-20] MEDS ORDERED: FUROSEMIDE 40 MG/4 ML INJ (LASIX) IVP NR (10:00)
[2019-11-20] MEDS ORDERED: amLODIPine 5 MG (NORVASC) TAB PO NR (10:00)
--- NOTE | 2019-11-20 10:00 | Physician Query Clarification ---
PQ-Conflicting Diagnosis Admission/Discharge Admission Date: Nov 19, 2019 at 05:30 Discharge Date: The medical record reflects the following clinical scenario: History/Risk Factors: Cellulitis planter surface and toes of left foot. Diabetes type 2 with foot ulcer. Clinical Findings: T 36.5, P 103, Resp 20, BP 150/76, WBC 17.4, Bands 7, Lactic acid 2. Treatment: IV Piperacillin Sod/Tazobactam Sod 4.5gm/Sodium Chloride and IV Vancomycycin HCI 1,000mg/Sodium Chloride. Question: Do you agree with the impression of Sepsis per Dr. Rupesh Van MD? Please document a response in Progress Note or Discharge Summary. 1. Yes 2. No 3. Other, with explanation of clinical findings 4. Clinically undetermined, no explanation for clinical findings. PHYSICIAN RESPONSE Do you agree w/Consulting Dx?: Yes Please remember a lack of response to the above will prompt a phone page by CDI/Coding staff. In responding to this query, please exercise your independent professional judgment. The purpose of this communication is to more accurately reflect the complexity of your patients condition. The fact that a question is asked does not imply that any particular answer is desired or expected. Thank you for your timely response to this clarification. Requestors name: Teresita Mcdowell [facility] Phone # ext [phone] or [phone] THIS PHYSICIAN QUERY FORM IS A PERMANENT PART OF THE MEDICAL RECORD TERESITA MCDOWELL Nov 20, 2019 10:00 ROBIN ROGEL DO Nov 20, 2019 22:20
[2019-11-20] MEDS: ENOXAPARIN 40 MG/0.4 ML (LOVENOX) SYR SC SCH ×2 (10:03→19:47)
--- NOTE | 2019-11-20 10:42 | Consultation - Surgery ---
History of Present Illness History of Present Illness Patient Consulted On(roro/time) 11/20/19 10:37 Time Seen by Provider: 09:58 History of Present Illness Surgery asked to consult regarding Left 2nd & 3rd toe cellulitis, r/o Osteomyelitis. HPI per IM: Patient reported to ED after pain in his L foot he says was "really bad". About 10 days ago he stepped on a piece of steel and didn't notice it. A few days later he started feeling pain and went to [facility]. [facility] started him on some abx and referred him to Dr. Kelsey. Dr. Kelsey saw him this past and did some wound maintenance and packed it. He has been changing the packing 2x per day. He was scheduled to see Dr. Kelsey again in one week but he says he was in too much pain. The pain is around the wound and it shoots up his leg intermittently. He had some nausea he attributes to pain but no vomiting. Patient has history of DM. This has never happened to him before. Pain medi cation on admission has helped. When I spoke to pt he was in moderate to severe pain, asking for pain meds. Pt is a diabetic, uncontrolled. Pt can't feel his feet very well so he is not sure if it is getting worse. Pain is 10 out of 10; radiating into foot and up leg. Allergies and Home Medications Allergies Coded Allergies: No Known Drug Allergies (Unverified , 10/12/17) Home Medications Albuterol Sulfate 1 Puff Puff, 2 PUFF PO Q6H PRN for SHORTNESS OF BREATH, (Reported) Amlodipine Besylate 10 Mg Tablet, 10 MG PO DAILY, (Reported) Cetirizine HCl 10 Mg Tablet, 10 MG PO DAILY, (Reported) Clindamycin HCl 300 Mg Capsule, 300 MG PO Q8H, (Reported) FILLED 11-10-2019 #30/10 DAY SUPPLY Cyclobenzaprine HCl 10 Mg Tablet, 10 MG PO TID PRN for MUSCLE SPASMS, (Reported) Dulaglutide 1.5 Mg/0.5 Ml Pen.injctr, 1.5 MG SC SUNDAY, (Reported) Furosemide 40 Mg Tablet, 40 MG PO DAILY, (Reported) Metformin HCl 1,000 Mg Tablet, 1,000 MG PO BID, (Reported) Metronidazole 500 Mg Tablet, 500 MG PO QID, (Reported) FILLED 11-13-2019 #40/10 DAY SUPPLY Patient Home Medication List Home Medication List Reviewed: Yes Past Gbdiarv-Eurwff-Xvlkcx Hx Patient Social History Alcohol Use: Past History Recreational Drug Use: No (denies, however he is positive methamphetamines) Smoking Status: Smoker Current Status [facility] Former Smoker, Quit: Oct 08, 1996 Type Used: Cigarettes Recent Foreign Travel: No Contact w/Someone Who Travel: No Recent Infectious Disease Expo: No Recent Hopitalizations: No Immunizations Up To Date Tetanus Booster (TDap): Unknown PED Vaccines UTD: No Date of Pneumonia Vaccine: Oct 08, 2010 Seasonal Allergies Seasonal Allergies: Yes Surgeries History of Surgeries: Yes (PANCREAS STENT-HAS BEEN REMOVED, R KNEE X2, L KNEE ) Surgeries: Abdominal (Stent placed in pancreatic duct), Gallbladder, Orthopedic (knee scopes), Tonsillectomy Respiratory History of Respiratory Disorde: Yes Respiratory Disorders: Sleep Apnea Cardiovascular History of Cardiac Disorders: Yes Cardiac Disorders: Chronic Edema/Swelling, Hypertension Neurological History of Neurological Disord: No Reproductive System Hx Reproductive Disorders: No Sexually Transmitted Disease: No HIV/AIDS: No Genitourinary History of Genitourinary Disor: No Gastrointestinal History of Gastrointestinal Di: Yes (BLOOD IN STOOLS) Gastrointestinal Disorders: Gastroesophageal Reflux, Chronic Constipation, Pancreatitis, Chronic Diarrhea Musculoskeletal History of Musculoskeletal Dis: Yes (BOTH KNEES) Musculoskeletal Disorders: Arthritis Endocrine History of Endocrine Disorders: Yes (Morbid obesity) Endocrine Disorders: Diabetes, Insulin dep HEENT History of HEENT Disorders: No Loss of Vision: Bilateral Hearing Impairment: Denies Cancer History of Cancer: No Psychosocial History of Psychiatric Problem: Yes Behavioral Health Disorders: Depression Integumentary History of Skin or Integumenta: No Blood Transfusions History of Blood Disorders: No Adverse Reaction to a Blood Tr: No (N/A) Family Medical History Significant Family History: Heart Disease, CAD Under 55 Years Old, Hypertension, Vascular Disease, Other Conditions/Hx Family Medial History: Alzheimer's disease 19 MOTHER Arthritis 19 FATHER Cardiovascular disease 19 FATHER Dementia 19 MOTHER Hypertension 19 FATHER Myocardial infarction G8 BROTHER Parkinson's disease 19 MOTHER Prostate cancer 19 FATHER No Family History of: AIDS Abdominal aortic aneurysm Mitchell's disease Alcoholism Aphasia Asthma Cancer of mouth Cataracts Colon cancer Completed stroke Congenital disease Congenital heart disease Coronary thrombosis Cystic fibrosis Deafness or hearing loss Diabetes mellitus Drug abuse Dysphasia Fibrocystic disease of breast Gastroenteritis Glaucoma Headache disorder Hypercholesterolemia Infertility Kidney disease Neoplasm Not obtainable due to adoption Osteoporosis Psychosocial problem Respiratory disorder Seizure disorder Severe allergy Thyroid disease Tuberculosis Visual disorder Review of Systems-General Constitutional: chills, malaise, weakness EENTM: No blurred vision, No double vision, No mouth swelling, No epistaxis Respiratory: No cough, No dyspnea on exertion Cardiovascular: No chest pain, No edema Gastrointestinal: No abdominal pain, No jaundice, No nausea, No vomiting Genitourinary: No dysuria, No frequency, No hematuria Musculoskeletal: joint pain, joint swelling, muscle pain, muscle stiffness Skin: No change in color, No change in hair/nails; other (puncture wound left foot) Psychiatric/Neurological: Denies Anxiety; Depressed; Denies Seizure, Denies Tremors Other pt denies hx of abnormal bleeding or bruising Physical Exam-General Problems Physical Exam Vital Signs Vital Signs - First Documented 11/19/19 03:42 Temp 36.5 Pulse 103 Resp 20 B/P (MAP) 150/76 (100) Pulse Ox 97 O2 Delivery Room Air Capillary Refill : Less Than 3 SecondsLess Than 3 Seconds General Appearance: WD/WN, obese (morbidly) Eyes: Bilateral Eye PERRL, Bilateral Eye EOMI HEENT: pharynx normal; No scleral icterus (R), No scleral icterus (L) Neck: non-tender, full range of motion Respiratory: chest non-tender, lungs clear, normal breath sounds, no respirator y distress, no accessory muscle use Cardiovascular: no murmur, tachycardia Gastrointestinal: normal bowel sounds, non tender, soft, no organomegaly Extremities: no pedal edema, no calf tenderness, normal capillary refill, other (Left foot, puncture wound on ball of foot, no surrounding erythema, does appear to have some bruising above 2-4 toes. 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, alert, oriented x 3 Skin: normal color, warm/dry, other (multiple healing scabs and scratches on lo wer legs) Lymphatic: no adenopathy (neck, axilla or groin) Data Review Labs Laboratory Tests 11/19/19 10:59: Glucometer 293H 11/19/19 15:54: Glucometer 252H 11/19/19 20:19: Glucometer 341H 11/20/19 04:17: White Blood Count 13.3H, Red Blood Count 4.52, Hemoglobin 13.2L, Hematocrit 40, Mean Corpuscular Volume 88, Mean Corpuscular Hemoglobin 29, Mean Corpuscular Hemoglobin Concent 33, Red Cell Distribution Width 14.3, Platelet Count 233, Mean Platelet Volume 10.2, Neutrophils (%) (Auto) 73, Lymphocytes (%) (Auto) 15, Monocytes (%) (Auto) 10, Eosinophils (%) (Auto) 2, Basophils (%) (Auto) 0, Neutrophils # (Auto) 9.7H, Lymphocytes # (Auto) 2.0, Monocytes # (Auto) 1.3H, Eosinophils # (Auto) 0.3, Basophils # (Auto) 0.0, Sodium Level 138, Potassium Level 3.8, Chloride Level 105, Carbon Dioxide Level 24, Anion Gap 9, Blood Urea Nitrogen 12, Creatinine 0.65, Estimat Glomerular Filtration Rate > 60, BUN/Creatinine Ratio 18, Glucose Level 157H, Calcium Level 8.6, Corrected Calcium 9.4, Total Bilirubin 0.5, Aspartate Amino Transf (AST/SGOT) 19, Alanine Aminotransferase (ALT/SGPT) 16, Alkaline Phosphatase 95, Total Protein 6.1L, Albumin 3.0L 11/20/19 04:20: Glucometer 193H Assessment/Plan Assessment/Plan Assessment/Plan Cellulitis Left 2nd Toe - R/O Osteomyelitis Puncture wound Morbid obsesity Uncontrolled DM Pt just had MRI, will wait for radiologist report. Continue local wound care and packing of puncture wound. DM diet and good blood sugar control will be very important for healing of the wound and cellulitis. Will have more recommendations after MRI report. Clinical Quality Measures DVT/VTE Risk/Contraindication: Risk Factor Score Per Nursin RFS Level Per Nursing on Admit: 4+=Very High SUSSY CEJA DO Nov 20, 2019 10:42
[2019-11-20] MEDS: oxyCODONE/APAP 10/325MG (PERCOCET 10) TABLET PO PRN ×3 (10:47→19:46)
--- NOTE | 2019-11-20 11:03 | Progress Note - Hospitalist ---
[facility] 11/20/19 1103: Subjective HPI/CC On Admission CC: Left foot cellulitis with diabetic ulcer HPI: This is a 49yoWM clinic pt of [facility] with a PMH of diabetes noncompliant with insulin regimen at home who presents with left foot pain after being seen by Dr. Kelsey last week, placed on Doxycycline and Flagyl but failed that treatment but admitted for IV antibiotics and placed on Vanc and Zosyn and Hgb A1C was noted to be 14. I did confer with Dr. Kelsey and I did increase his insulin to a sliding scale C with Levemir of 20 units twice daily. Subjective/Events-last exam Patient is reporting severe pain in his entire leg that he says feels like cramping. He is restless, moaning and shaking both legs. He is a little agitated says he wants anything that will help with the pain. General surgery was c onsulted for further evaluation. MRI of the foot is pending. Xray of foot was negative. Focused Exam Lactate Level 11/19/19 04:30: Lactic Acid Level 2.00 Objective Exam Vital Signs Vital Signs Date Time Temp Pulse Resp B/P (MAP) Pulse Ox O2 Delivery O2 Flow Rate FiO2 11/20/19 08:00 Room Air 11/20/19 07:36 37.3 87 18 156/70 (98) 93 Capillary Refill : Less Than 3 SecondsLess Than 3 Seconds Results/Procedures Lab Laboratory Tests 11/20/19 04:17 Patient resulted labs reviewed. Assessment/Plan Assessment and Plan Assess & Plan/Chief Complaint L foot cellulitis 2nd and 3rd toe r/o osteomyelitis puncture wound morbid obesity DM Hyperglycemia Peripheral neuropathy HTN Hx of pancreatitis Hx of tobacco abuse Fam hx of prostate cancer Continue abx - pip tazo/vanco Step up pain meds, Percocet 10 q4h Heplock Fluids Start Lasix Doppler US of L leg to evaluate for DVT DVT prophylaxis - Lovenox Novolog for glucose control Low is on board for wound management Consulted general surgery for further evaluation. MRI is pending. Doppler US of L Leg to evaluate for DVT Clinical Quality Measures DVT/VTE Risk/Contraindication: Risk Factor Score Per Nursin RFS Level Per Nursing on Admit: 4+=Very High EDILMA ROGEL DO 11/20/19 1500: Subjective HPI/CC On Admission Date Seen by Provider: Nov 20, 2019 Time Seen by Provider: 09:00 Subjective/Events-last exam White count is 13,000 Will get a venous doppler of the leg Heplock IV fluid Lasix 20 Mg will be given due to elevated BP Norvasc of 5 Mg will also be given now Dr. Palmer will evaluate the toe in case it needs to be amputated Lovenox was ordered yesterday, not put in so I put in for DVT prophylaxis, he is ambulating around Will discontinue Hydrocodone and start percocet because the pain is severe Will provide K-pad to the left calf and foot Review of Systems Musculoskeletal: leg pain, foot pain Objective Exam General Appearance: Chronically ill, Moderate Distress, Obese Respiratory: Chest Non Tender, Lungs Clear, Normal Breath Sounds, No Accessory Muscle Use, No Respiratory Distress Cardiovascular: Regular Rate, Rhythm, No Edema, No Gallop, No JVD, No Murmur, Normal Peripheral Pulses Extremity: Other (Left foot wound intact) Assessment/Plan Assessment and Plan Assess & Plan/Chief Complaint Needs amputation Diagnosis/Problems Diagnosis/Problems (1) Cellulitis of left foot Status: Acute (2) Non compliance w medication regimen Status: Acute (3) Hyperglycemia due to type 2 diabetes mellitus Status: Acute Qualifiers: Qualified Codes: E11.65 - Type 2 diabetes mellitus with hyperglycemia; 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 I reviewed and verified all information documented by the medical student and made modifications to such information, when appropriate. I personally performed the physical exam and medical decision making. Edilma Rogel, Nov 20, 2019,21:46 S[facility] ROTH Nov 20, 2019 11:03 EDILMA ROGEL DO Nov 20, 2019 15:00
--- NOTE | 2019-11-20 11:06 | Diagnostic Imaging Report ---
PROCEDURE: US left lower extremity venous. TECHNIQUE: Multiple real-time grayscale images were obtained over the left lower extremity in various projections. Additional duplex Doppler and color Doppler images were also obtained. INDICATION: Left foot cellulitis. FINDINGS: There is no evidence of left lower extremity DVT. Left lower extremity deep venous system shows normal compressibility with normal response to augmentation and Valsalva. No fluid collection or mass is seen. IMPRESSION: No evidence of left lower extremity DVT. Dictated by: Dictated on workstation # [id number]
--- NOTE | 2019-11-20 11:07 | Diagnostic Imaging Report ---
EXAMINATION: Left lower extremity MRI from 11/20/2019. TECHNIQUE: Multiplanar, multisequence non contrast enhanced MR imaging of the left lower extremity was accomplished. INDICATION: Open wound in between the great toe and second toe. Evaluate for possible osteomyelitis. COMPARISON: Correlation made to radiographs from 11/19/2019. FINDINGS: There is diffuse abnormal signal intensity, predominantly involving the plantar aspect of the second toe with diffuse T2 hyperintensity and surrounding a skin defect which extends towards the second metatarsophalangeal joint. No measurable or drainable fluid collections are appreciated, however there is a joint effusion at the second metatarsophalangeal joint space and there is mild T2 hyperintensity within the proximal aspect of the proximal second phalanx, suggesting possible osteomyelitis. Post contrast imaging may provide better characterization, if clinically indicated. The more distal second toe is not as well evaluated due to incomplete fat saturation. Small joint effusion is also seen at the third and fourth metatarsophalangeal joint spaces. The visualized tendons are intact. IMPRESSION: 1. Focal soft tissue defect, consistent with the known ulceration with abnormal signal intensity in the adjacent second proximal phalanx, suggesting osteomyelitis. Joint effusions as described above may be reactive with an infectious etiology not excluded, especially at the second metatarsophalangeal joint space. 2. Not mentioned above, there is a tiny focus of nonspecific hypointensity on the long axis STIR sequence image #5. This is in the plantar aspect of the second metatarsal level and of uncertain etiology. Clinical exclusion of small foreign body is recommended, although no surrounding susceptibility artifact in the region is appreciated. Dictated by: Dictated on workstation # [id number]
[2019-11-20] MEDS: GABAPENTIN 300 MG (NEURONTIN) CAP PO PRN (13:38)
--- NOTE | 2019-11-20 15:01 | NUR ---
CM/SS: Visited with pt as to his plan for discharge Plan: Undetermined at this time Summary: Pt is in bed at the time of the visit. Pt reports being in some pain awaiting his pain medications. Pt is moaning and is unable to talk with this worker at this time. This worker shared with pt that they will check back when he was feeling better. Pt is ok with that at this time.
[2019-11-20 16:00] VITALS: BP 136/79
[2019-11-20] MEDS: ACETAMINOPHEN 500 MG TAB (TYLENOL) PO PRN (17:35)
[2019-11-20] MEDS: KETOROLAC 15 MG/ML VIAL IV SCH (17:36)
--- NOTE | 2019-11-20 18:37 | Wound Care Assessment ---
Wound Care Assessment Date Seen by Provider: Nov 20, 2019 Time Seen by Provider: 17:50 Chief Complaint Infected L 2nd toe. HPI Interval Note: The patient is having less pain. The wound appears less red, but still swollen. MRI shows abnormal 2nd toe proximal phalanx, joint effusions, and possible foreign body. findings discussed with the patient and with Dr. Palmer. Inview of MRI findings will defer to surgical decision as to need for further debridement/toe amputation. Smoking Status: Smoker Current Status [facility] Recreational Drug Use: No (denies, however he is positive methamphetamines) Alcohol Use: Past History Exam Vital Signs Date Time Temp Pulse Resp B/P (MAP) Pulse Ox O2 Delivery O2 Flow Rate FiO2 11/20/19 18:12 37.5 11/20/19 16:00 94 16 136/79 (98) 95 Room Air Capillary Refill : Less Than 3 SecondsLess Than 3 Seconds Results Laboratory Tests 11/19/19 20:19: Glucometer 341H 11/20/19 04:17: White Blood Count 13.3H, Red Blood Count 4.52, Hemoglobin 13.2L, Hematocrit 40, Mean Corpuscular Volume 88, Mean Corpuscular Hemoglobin 29, Mean Corpuscular Hemoglobin Concent 33, Red Cell Distribution Width 14.3, Platelet Count 233, Mean Platelet Volume 10.2, Neutrophils (%) (Auto) 73, Lymphocytes (%) (Auto) 15, Monocytes (%) (Auto) 10, Eosinophils (%) (Auto) 2, Basophils (%) (Auto) 0, Neutrophils # (Auto) 9.7H, Lymphocytes # (Auto) 2.0, Monocytes # (Auto) 1.3H, Eosinophils # (Auto) 0.3, Basophils # (Auto) 0.0, Sodium Level 138, Potassium Level 3.8, Chloride Level 105, Carbon Dioxide Level 24, Anion Gap 9, Blood Urea Nitrogen 12, Creatinine 0.65, Estimat Glomerular Filtration Rate > 60, BUN/Creatinine Ratio 18, Glucose Level 157H, Calcium Level 8.6, Corrected Calcium 9.4, Total Bilirubin 0.5, Aspartate Amino Transf (AST/SGOT) 19, Alanine Aminotransferase (ALT/SGPT) 16, Alkaline Phosphatase 95, Total Protein 6.1L, Albumin 3.0L 11/20/19 04:20: Glucometer 193H 11/20/19 10:52: Glucometer 274H 11/20/19 16:14: Glucometer 303H Microbiology 11/20/19 Influenza Types A,B Antigen (BECKIE) - Final, Complete 11/19/19 Blood Culture - Preliminary, Resulted No growth Microbiology 11/20/19 Influenza Types A,B Antigen (BECKIE) - Final, Complete 11/19/19 Blood Culture - Preliminary, Resulted No growth 11/19/19 Blood Culture - Preliminary, Resulted No growth DIOR OLIVIA MD Nov 20, 2019 18:37
[2019-11-20] MEDS: GABAPENTIN 300 MG (NEURONTIN) CAP PO SCH (19:45)
[2019-11-20 23:50] VITALS: BP 144/68
[2019-11-21] MEDS: oxyCODONE/APAP 10/325MG (PERCOCET 10) TABLET PO PRN ×4 (00:19→22:30)
--- OUTSIDE RECORDS SUMMARY | 2019-11-21 01:48 | XMS REPORT ---
Author Author [employer] Organization [employer] Address [address] [address] Care Team Providers Care Institutional Custodian Name Role Phone [facility] Unavailable [phone] KOFI TIARA Unavailable DILLARD, EMORY Unavailable MARI HUSTON Unavailable GAULT, RIAZ Unavailable GAULT, RIAZ Unavailable GAULT, RIAZ Unavailable GAULT, RIAZ Unavailable GAULT, RIAZ Unavailable GAULT, RIAZ Unavailable GAULT, RIAZ Unavailable GAULT, RIAZ Unavailable GAULT, RIAZ Unavailable GAULT, RIAZ Unavailable GAULT, RIAZ Unavailable GAULT, RIAZ Unavailable GAULT, RIAZ Unavailable GAULT, RIAZ Unavailable GAULT, RIAZ Unavailable LYNSEY NISSA Unavailable GAULT, RIAZ Unavailable GAULT, RIAZ Unavailable GAULT, RIAZ Unavailable GAULT, RIAZ Unavailable GAULT, RIAZ Unavailable DILLARD, EMORY Unavailable GAULT, RIAZ Unavailable GAULT, RIAZ Unavailable DILLARD, EMORY Unavailable GAULT, RIAZ Unavailable GAULT, RIAZ Unavailable GAULT, RIAZ Unavailable HERNAN WYLIE Unavailable GAULT, RIAZ Unavailable GAULT, RIAZ Unavailable ABIGAIL LACY Unavailable Unavailable CHANCE, YON Unavailable Unavailable BROWN, YON Unavailable Unavailable GAULT, RIAZ Unavailable GAULT, RIAZ Unavailable EDUIN FLOREZ FINANCIAL INVESTIGATOR Unavailable Unavailable Migration, Doctor Unavailable Unavailable Migration, Doctor Unavailable Unavailable ROGEL DO, ROBIN Unavailable Unavailable ROGEL DO, ROBIN Unavailable Unavailable Migration, Doctor Unavailable Unavailable Migration, Doctor Unavailable Unavailable CHILO QURESHI, EMILY Payne Unavailable Unavailable SHANE LEE MD Unavailable Unavailable CRISELDA RITCHIE MD Unavailable Unavailable CRISELDA RITCHIE MD Unavailable Unavailable LEA ALDANA MD Unavailable Unavailable DONAL TAYLOR MD Unavailable Unavailable BOUCHRA MEDRANO MD Unavailable Unavailable BOUCHRA MEDRANO MD Unavailable Unavailable OSMAN MOSLEY MD Unavailable Unavailable JIAN STODDARD MD Unavailable Unavailable JIAN STODDARD MD Unavailable Unavailable MABLE OLIVO MD Unavailable Unavailable ANGEL NORMAN MD Unavailable Unavailable GILBERT GALARZA Unavailable Unavailable BENEDICT DO HOPE K Unavailable Unavailable LEISURE, LYNIETA Unavailable Unavailable PAONI, MINH Unavailable Unavailable PAONI, MINH Unavailable Unavailable MICHELLE WESTY Unavailable SteveGUY CANDELARIA Unavailable BENEDICT DO, HOPE K Unavailable Unavailable GILBERT GALARZA Unavailable Unavailable GAULT RIAZ Unavailable Unavailable ABIGAIL LACY FINANCIAL INVESTIGATOR Unavailable Unavailable LEA ALDANA MD Unavailable Unavailable CRISELDA RITCHIE MD Unavailable Unavailable CRISELDA RITCHIE MD Unavailable Unavailable EMILY WOO MD Unavailable Unavailable OSMAN MOSLEY MD Unavailable Unavailable MARIE BUSH DO Unavailable Unavailable MARIE BUSH DO Unavailable Unavailable RUSLAN MILES MD Unavailable Unavailable SHANE LEE MD Unavailable Unavailable BOUCHRA MEDRANO MD Unavailable Unavailable BOUCHRA MEDRANO MD Unavailable Unavailable ANGEL NORMAN MD Unavailable Unavailable SAMIRA LU Unavailable Unavailable ABIDA, HOPE Unavailable Unavailable ABIDA, HOPE Unavailable Unavailable [facility] QURESHI, DONAL Payne Unavailable Unavailable GEOVANI QURESHI, MABLE Unavailable Unavailable CECY MCRAE DO Unavailable Unavailable OTHER, UNLISTED Unavailable Unavailable RICHI QURESHI, JIAN Dietz Unavailable Unavailable RICHI QURESHI, JIAN Dietz Unavailable Unavailable ANNAMARIA PERRYGUY ZHENG Unavailable ANNAMARIA AGUILAR GUY Unavailable TACOS MASON Unavailable Allergies Normalized Allergy Reported Date of Reaction(s) Care Provider Facility Allergy Type classification allergen Allergy Onset MA (20 Unclassified NKANo Known 10-10-2005 - no information TAMI ALDANA Not Available sources.) Allergies MD (69596) DA (9 Unclassified No Known Drug 10-12-2017 - no information HOPE MCMULLEN DO [facility] Via sources.) Allergies [facility] (29264) no information Unclassified NO KNOWN DRUG UNKNOWN, NO [facility] (17 sources.) ALLERGIES KNOWN DRUG [facility] of ALLERGIES [facility] ([address]) Medications Current Medications Medication Ingredient Drug Dose Dates Status Sig Sig Care Class(es) (Normalized) (Original) Provid er atorvastati atorvastati HMG-CoA 20 mg 08-22-20 Active no At orvastatin no n 20 mg n Reductase 18 information Calcium 20 na me oral tablet Translation Inhibitor mg Orally (no (1 source.) s: [ Once a day 1 phone) Atorvastati tablet 24h n Calcium 13 Aug, 2018 20 mg] 90 days Active benztropine benztropine Anticholine 0.5 mg Active no Benztro pine no mesylate Translation rgic, information Mesylate 0.5 name 0.5 mg oral s: [ Antihistami MG Orally (no tablet (3 Benztropine ne TID PRN 1 phone) sources.) Mesylate tablet 0.5 MG, Active Benztropine Mesylate 0.5 MG] no fish oil no 1000 Active no Fish Oil no information Translation information mg information 1000 MG name (3 s: [ Fish Orally Once (no sources.) Oil 1000 a day 1 phone) MG, Fish capsule 24h Oil 1000 Active MG] furosemide furosemide Loop 40 mg Active no Lasix 40 mg no 40 mg oral Translation Diuretic information Orally Once name tablet (4 s: [ Lasix a day 1 (no sources.) 40 MG, tablet 24h phone) Lasix 40 30 days MG] Active haloperidol haloperidol Typical 2 mg Active no Haloperidol no 2 mg oral Translation Antipsychot information 2 MG Orally na me tablet (3 s: [ ic TID PRN 1 (no sources.) Haloperidol tablet phone) 2 MG, Active Haloperidol 2 MG] mupirocin mupirocin RNA 2 % Active no Mupirocin 2 no 0.02 mg/mg Translation Synthetase information % Externally n papo topical s: [ Inhibitor Three times (no ointment (3 Mupirocin 2 Antibacteri a day 1 phone) sources.) %, al application Mupirocin 2 to affected %] area 8h Active oxyCODONE oxyCODONE Opioid 10 mg Active no Oxycodone no hydrochlori Translation Agonist information HCl 10 MG name de 10 mg s: [ Orally every (no oral tablet Oxycodone 6 hrs 1 phone) (3 HCl 10 MG, tablet as sources.) Oxycodone needed 6h HCl 10 MG] Active 2.625 ml paliperidon Atypical Active no Invega no paliperidon e Antipsychot information Trinza 819 nam e e palmitate Translation ic MG/2.625ML (no 312 mg/ml s: [ Invega Intramuscula phone) prefilled Trinza 819 r Q 3 months syringe (3 MG/2.625ML, 2.625 ml sources.) Invega Active Trinza 819 MG/2.625ML] no Pen [place] no 11-06-19 Active no Pen [place] no information 32G X 4 MM information 18 information 32G X 4 MM name (3 Translation as directed (no sources.) s: [ Pen Oct, phone) [place] 32G Active X 4 MM, Pen [place] 32G X 4 MM] potassium potassium no 10 mEq 07-28-20 Active no Potassi um no chloride 10 chloride information 18 information Chloride ER name meq Translation 10 MEQ (no extended s: [ Orally Once phone) release Potassium a day 1 oral tablet Chloride ER tablet with (5 10 MEQ, food 24h 18 sources.) Potassium Jul, 2018 30 Chloride ER days Active 10 MEQ] sucralfate sucralfate Aluminum 1000 Active no Sucralfate 1 no 1000 mg Translation Complex mg information GM Orally 4 name oral tablet s: [ times a day (no (5 Sucralfate 1 tablet 6h phone) sources.) 1 GM, Active Sucralfate 1 GM] triamcinolo triamcinolo Corticoster 5 11-06-19 Active no Triamcinolon no ne ne oid mg/mL 18 information e Acetonide name acetonide 5 Translation 0.5 % (no mg/ml s: [ Externally phone) topical Triamcinolo Twice a day cream (3 ne as needed 1 sources.) Acetonide application 0.5 %, to affected Triamcinolo area Oct, 2017 Active Acetonide 0.5 %] no vitamin E no Active no Vitamin E no information information information Active name (3 (no sources.) phone) Completed/Discontinued Medications Medication Ingredient Drug Dose Dates Status Sig Sig Care Class(es) (Normalized) (Original) Provid er no HYDROCODONE no 11-13-19 no no no no information /APAP information 19 - informat information infor mation name (1 source.) 5MG/325MG 11-13-19 ion (no TAB 5 19 phone) MG/325MG (JOSÉ ANTONIO-TAB 5/325) no INSULIN no 08-28-20 no no no no information REGULAR information 18 - informat information info rmation name (1 source.) HUMAN INJ 08-28-20 ion (no 100 18 phone) UNITS/CC (HUMULIN R / NOVOLIN R INSULIN) no KETOROLAC no 11-22-19 no no no no information VIAL INJ 30 information 19 - informat informati on information name (1 source.) MG/CC 11-22-19 ion (no (TORADOL 19 phone) VIAL) 08-28-2018 no no no no name - information inform informat (no 08-28-2018 ation ion phone) no KETOROLAC no 10-13-19 no no no no information VIAL INJ 60 information 20 - informat informati on information name (1 source.) MG/2CC 10-13-19 ion (no (TORADOL 20 phone) VIAL) 11-12-2018 no no no no name - information inform informat (no 11-12-2018 ation ion phone) no Morphine IV no 08-28-20 no no no no information cartridge information 18 - informat information in formation name (1 source.) 4mg/cc 08-28-20 ion (no 18 phone) no Normal no 08-28-20 no no no no information saline information 18 - informat information infor mation name (1 source.) 08-28-20 ion (no 18 phone) no Phenazopyri no 100 mg 08-28-20 no no no no information dine information 18 - informat information infor mation name (1 source.) 08-28-20 ion (no 18 phone) NEGATED no no 07-10-20 no no no no no information information 18 - informat information infor mation name information 07-10-20 ion (no (1 source.) 18 phone) NEGATED no no 07-10-20 no no no no no information information 18 - informat information infor mation name information 07-10-20 ion (no (1 source.) 18 phone) NEGATED no no 07-10-20 no no no no no information information 18 - informat information infor mation name information 07-10-20 ion (no (1 source.) 18 phone) Problems Active Problems Problem Normalized Date of Normalized Normalized Provider Fac ility Classification Problem(s) Problem Problem Problem Sta tus Onset/Resoluti Duration on Acute Acute Episodic Active [facility] bronchitis (4 bronchitis due [facility] of sources.) to Mycoplasma [place] pneumoniae [facility] (45028) Translations: [ ACUTE BRONCHITIS] Gastritis and Acute 10-17-2019 - Episodic Active [facility] duodenitis (21 gastritis [facility] of sources.) without [facility] (87149) Translations: [ ACUTE GASTRITIS, WITHOUT MENTION OF HEMORRHAGE] Alcohol-relate Alcohol abuse, Chronic Active CRISELDA No t Available d disorders (2 unspecified MD CHAU (46604) sources.) Anxiety Anxiety Chronic Active no name no informatio n disorders (4 disorder, sources.) unspecified 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 - Chronic Active ROBIN GAR NER , Not Available atherosclerosi c heart DO (73178) s and other disease of heart disease [place] (11 sources.) coronary artery without angina pectoris Translations: [ ANGINA PECTORIS, UNSPECIFIED, OTHER AND UNSPECIFIED ANGINA PECTORIS] Osteoarthritis Bilateral Chronic Active [facility] V ia (7 sources.) primary [facility] osteoarthritis Hospital - of [facility] (77981) Other Body Mass Chronic Active [facility] Via nutritional; Index 40 and BUSH , DO Nishi endocrine; and over, adult Hospital - metabolic [place] disorders (1 (05027) source.) Unclassified Body mass Chronic Active RIAZ [facility] [facility] (20 sources.) index 40+ - [address] [facility] severely obese of [place] Translations: [place] ([address]605) [ Morbid (severe) obesity due to excess calories, BMI 50.0-59.9, adult, BMI 50.0-59.9, adult, Morbid (severe) obesity due to excess calories] Other Body Mass Chronic Active JIAN STODDARD [facility] Via nutritional; Tien , MD [place] endocrine; and 50.0-59.9, Hospital - metabolic adult [place] disorders (4 (02749) sources.) Chronic Chronic Chronic Active ROBIN ROGEL , Not Avai lable obstructive obstructive DO (03664) pulmonary pulmonary disease and disease with bronchiectasis (acute) (2 sources.) exacerbation Pancreatic Chronic no information Active EMILY WOO No t Available disorders (not pancreatitis (91631) diabetes) (4 Translations: sources.) [ ACUTE PANCREATITIS] Pancreatic Chronic Chronic Active MARIE [facility] Via disorders (not pancreatitis DO Nishi BUSH diabetes) (5 Hospital - sources.) [place] ([address]) Superficial Contusion of 10-17-2019 - Episodic Active GILBERT Not Available injury; SAMEERA Aparicio (98412) contusion (32 shoulder, sources.) initial encounter Translations: [ CONTUSION OF SHOULDER REGION, CONTUSION OF RIGHT FRONT WALL OF THORAX, INITIAL ENCOUNTER , CONTUSION OF CHEST WALL, CONTUSION OF UPPER ARM, ABRASION HEAD, CONTUSION OF RIGHT SHOULDER, INITIAL ENCOUNTER, CONTUSION OF LEFT HAND, INITIAL ENCOUNTER , CONTUSION OF HAND(S)] Other skin Corns and Episodic Active SAMIRA LU [facility]ospita l disorders (1 callosities [facility] of source.) [facility] (27702) Mood disorders Depressive Chronic Active MARIE [facility] Vi a (14 sources.) disorder, not DO Nishi BUSH elsewhere Hospital - classified [place] Translations: (36188) [ MAJOR DEPRESSIVE DISORDER, SINGLE EPISOD, DYSTHYMIC DISORDER] Other Disorders of Chronic Active SHANE [facility] Via nutritional; magnesium MD Nishi LEE endocrine; and metabolism Hospital - metabolic [place] disorders (2 (71877) sources.) Genitourinary Dysuria 10-17-2019 - Episodic Active [facility]Z [facility] symptoms and Translations: [address] [place] [address] ill-defined [ - Burning of [facility] conditions (20 with urination [place] (09139) sources.) R30.0, - Burning with urination R30.0, - Gross hematuria R31.0, DYSURIA, HEMATURIA, UNSPECIFIED , HEMATURIA, UNSPECIFIED, DYSURIA, - Asymptomatic microscopic hematuria R31.21] Unclassified Family history Episodic Active [facility]Z [facility] (20 sources.) of ischemic [address] [place] [address] [facility] and other [place] (46229) diseases of the circulatory system Translations: [ FAMILY HISTORY OF MALIGNANT NEOPLASM OF , ACQUIRED ABSENCE OF OTHER ORGANS, ACQUIRED ABSENCE OF OTHER SPECIFIED PART, - Non-adherence to medical treatment Z91.19, - Non-adherence to medical treatment Z91.19] Esophageal Gastro-esophag Chronic Active ANGEL NORMAN [facility] Via disorders (20 eal reflux MD [place] sources.) disease Hospital - without [place] esophagitis (96670) Translations: [ REFLUX ESOPHAGITIS] Disorders of Hyperlipidemia Chronic Active HOPE MCMULLEN DO [facility] Via lipid , unspecified [place] metabolism (10 Translations: Hospital - sources.) [ PURE [place] HYPERCHOLESTER (96034) OLEM, HYPERLIPIDEMIA NEC/NOS, PURE HYPERCHOLESTER OLEMIA, UNSPECIFIED] Residual Idiopathic Chronic Active [place] Not Availab le codes; sleep related VIKKI (98021) unclassified nonobstructive (7 sources.) alveolar hypoventilatio n Heart valve Mitral valve Chronic Active NORMA NICHOLSON Via disorders (4 disorders MD [place] sources.) Translations: Hospital - [ TRICUSPID [place] VALVE DISEASE] (77554) Other Morbid Chronic Active [facility] nutritional; (severe) [address] [place] [address] endocrine; and obesity due to of [facility] metabolic excess [place] (28422) disorders (20 calories sources.) Translations: [ - Morbid (severe) obesity due to excess calories E66.01, - Morbid (severe) obesity due to excess calories E66.01, - Obesity, morbid, BMI 40.0-49.9 E66.01] Other Morbid obesity Chronic Active MARIE [facility] Via nutritional; DO Nishi BUSH endocrine; and Hospital - metabolic [place] disorders (4 (52286) sources.) Other Obesity, Chronic Active EMILY WOO , Not Avai lable nutritional; unspecified (00320) endocrine; and metabolic disorders (2 sources.) Residual Obstructive Chronic Active ROBIN ROGEL , Not A vailable codes; sleep apnea DO (84875) unclassified (adult) (9 sources.) (pediatric) Residual Obstructive Chronic Active [facility] Via codes; sleep apnea DO Nishi BUSH unclassified (adult)(pediat Hospital - (1 source.) rani) [place] ([address]755) Nonspecific Other chest 10-17-2019 - Episodic Active [facility] Via chest pain (36 pain DO Nishi BUSH sources.) Translations: Hospital - [ CHEST PAIN [place] NOS, CHEST (35780) PAIN NEC, - Chest pain, unspecified type R07.9] Other liver Other chronic Chronic Active [facility] Vi a diseases ([address] [facility] SAMS sources.) liver disease [facility] - [place] ([address]123) Substance-rela Other Chronic Active MABLE OLIVO [facility] V ia murray disorders stimulant use, MD [place] (13 sources.) unspecified, Hospital - uncomplicated [place] Translations: (74444) [ OTHER STIMULANT ABUSE, UNCOMPLICATED, DRUG ABUSE NEC-IN REMISS] Schizophrenia Schizophrenia, Chronic Active SHANE Not Available and other unspecified MD JESUS (22080) psychotic Translations: disorders (21 [ sources.) SCHIZOPHRENIA NOS-UNSPEC, PSYCHOSIS NOS] Other lower Shortness of Episodic Active RIAZ ALVARENGA Commu nity respiratory breath [address] [facility] disease (20 Translations: of [place] sources.) [ - Shortness [place] (69593) of breath on exertion R06.02, - Shortness of breath on exertion R06.02, - Shortness of breath R06.02] Asthma (5 Unspecified Chronic Active BOUCHRA MEDRANO [facility] V ia sources.) asthma with MD [place] status Hospital - asthmaticus [place] Translations: (22818) [ UNSPECIFIED ASTHMA, UNCOMPLICATED, ASTHMA, UNSPECIFIED] Past or Other Problems Problem Normalized Date of Normalized Normalized Provider Fac ility Classification Problem(s) Problem Problem Problem Sta tus Onset/Resoluti Duration on Unclassified Abnormal Episodic Completed no name no informa tion (4 sources.) finding of blood chemistry, unspecified Residual Acquired Episodic Completed ABIGAIL LACY [facility] Via codes; absence of [place] unclassshabana other Hospital - (4 sources.) specified [place] parts of (78268) digestive tract Pancreatic Acute Episodic Completed CECY [facility] Via disorders (not pancreatitis CLEMENTINA , DO [facility] diabetes) (3 Hospital - sources.) [place] ([address]3271) Unclassified Acute no information no information [facility] (20 sources.) respiratory [address] [facility] Center distress of [place] Translations: [place] (79731) [ - Acute respiratory distress R06.03, - Acute respiratory distress R06.03] Other nervous Anesthesia of Episodic Completed OSMAN Not Available system skin BRUEGGEKENNETH , (39206) disorders (2 MD sources.) Spondylosis; Cervicalgia Episodic Completed OSMAN Not Rita ilable intervertebral [place] , (59350) disc disorders; other back problems (1 source.) Unclassified Chest pain no information no information [facility] (1 source.) [address] ([address]) Other Cramp of limb Episodic Completed SHANE [facility] Via connective MD Nishi LEE tissue disease Hospital - (2 sources.) [place] ([address]46) Other Facial Episodic Completed OSMAN Not Available connective weakness MELANY (03108) tissue disease (1 source.) External cause Fall from no information no information LEA JOHNSON [facility] Via codes: MD [place] Overexertion slipping, Hospital - (3 sources.) tripping, or [place] stumbling (09697) Residual Family history Episodic Completed MABLE OLIVO [facility] Via codes; of other MD [place] unclassified cardiovascular Hospital - (2 sources.) diseases [place] (45630) External cause Foreign body no information no information GRETC HEN [facility] Via codes: Other accidentally SAMEERA ROACH specified and entering other Hospital - classifiable orifice [place] (2 sources.) (69072) Other Gastroparesis Episodic Completed no name no infor mation disorders of stomach and duodenum (3 sources.) Other liver Hepatomegaly Episodic Completed DONAL [facility] Via diseases ([address] [facility] SAMS sources.) Hospital - [place] (16024) External cause Home accidents no information no information KATRIN ALDANA [facility] Via codes: Place MD [place] of occurrence Hospital - (1 source.) [place] ([address]) Other lower Hypoxemia Episodic Completed BOUCHRA MEDRANO , [facility] V ia respiratory MD [place] disease (2 Hospital - sources.) [place] () Other injuries Knee, leg, Episodic Completed LEA ALDANA [facility] Via and conditions ankle, and , MD [place] due to foot injury Hospital - external [place] causes (1 (30130) source.) Other alf Episodic Completed ABIGAIL LACY [facility] Via aftercare (16 (current) use [place] sources.) of aspirin Hospital [facility] () 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 Completed no name no informati on aftercare (3 (current) use sources.) of systemic steroids Other Long-term Episodic Completed HOPE BENEDICT , DO [facility] Via aftercare (3 (current) use [place] sources.) of aspirin [facility] () Other Long-term Episodic Completed LEA ODGERS Not Avai lable aftercare (16 (current) use , (80004) sources.) of insulin Other Long-term Episodic Completed HOPE BENEDICT , DO [facility] Via aftercare (7 (current) use [place] sources.) of other Hospital - medications [place] () Mood disorders Major no information no information ABIGAIL MARTINEZ [facility] Via (13 sources.) depressive [place] disorder, Hospital - single [place] episode, (60057) unspecified Noninfectious Noninfective Episodic Completed ABGIAIL LACY [facility] Via gastroenteriti gastroenteriti [place] s (7 sources.) s and colitis, [facility] NEGATED Obstructive no information Completed OSCAR MKIE , Not Available no sleep apnea DO (86474) information (6 (adult) sources.) (pediatric) Translations: [ BODY MASS INDEX (BMI) 50-59.9 , ADULT, PROCEDURE AND TREATMENT NOT CARRIED OUT , ACQUIRED ABSENCE OF OTHER ORGANS, FAMILY HX OF ISCHEM HEART DIS AND OTH DI] Other ear and Otalgia, Episodic Completed GILBERT [facility] Via sense organ unspecified SAMEERA ROACH disorders (2 Hospital - sources.) [place] () External cause Other external no information no information KATRIN ALDANA [facility] Via codes: cause status MD [place] Unspecified (4 Hospital - sources.) [place] () External cause Other external Episodic Completed GILBERT [facility] Via codes: cause status SAMEERA ROACH Unspecified (1 Hospital - source.) [place] (96830) Other Other fecal Episodic Completed no name no informa tion gastrointestin abnormalities al disorders (2 sources.) Other Other long Episodic Completed OSMAN Not Availab le aftercare (1 term (current) MELANY , (36476) source.) drug therapy Joint Other tear of Episodic Completed LEA ALDANA [facility] Via disorders and cartilage or , MD [place] dislocations; meniscus of Hospital - trauma-related knee, current [place] (1 source.) (64128) Intestinal Paralytic Episodic Completed JIAN STODDARD [facility] Vi a obstruction ileus , MD [place] without hernia Hospital - (2 sources.) [place] (38738) Cancer of Personal Episodic Completed no name no informatio n prostate (3 history of sources.) malignant neoplasm of prostate Screening and Personal Episodic Completed MABLE OLIVO , Not Av ailable history of history of (64087) mental health nicotine and substance dependence abuse codes Translations: (20 sources.) [ HISTORY OF TOBACCO USE] Residual Personal Episodic Completed MARIE [facility] Via codes; history of DO Nishi BUSH unclassified noncompliance Hospital - (7 sources.) with medical [place] treatment, (81550) presenting hazards to health Other Personal Episodic Completed BOUCHRA MEDRANO [facility] Via gastrointestin history of MD Nishi andrews disorders other diseases Hospital - (2 sources.) of digestive [place] system (71573) Other Personal Episodic Completed ABIGAIL LACY [facility] Via gastrointestin history of [place] andrews disorders other diseases Hospital - (12 sources.) of the [place] digestive (12421) system Poisoning by Poisoning by Episodic Completed BOUCHRA MEDRANO [facility] Via other other MD [place] medications specified Hospital - and drugs (2 analgesics and [place] sources.) antipyretics ([id number]) Disorders of Pure no information no information ABIGAIL LACY [facility] Via lipid hypercholester [place] metabolism (9 [place], Hospital - sources.) unspecified [place] (19525) Other injuries Shoulder and Episodic Completed GILBERT Not Available and conditions upper arm [facility]ERA [facility] ([id number]) due to injury external causes (2 sources.) Other Splenomegaly Episodic Completed DONAL [facility] - (2 sources.) [place] (43695) Suicide and Suicide and no information no information BOUCHRA MILLER , [facility] Via intentional self-inflicted MD [place] self-inflicted poisoning by Hospital - injury (2 analgesics, [place] sources.) antipyretics, (80575) and antirheumatics Syncope (4 Syncope and Episodic Completed HOPEElmer MCMULLEN , DO Not Available sources.) collapse (57135) Other Synovial cyst Episodic Completed no name no infor mation connective of popliteal tissue disease space [Genao], (4 sources.) unspecified knee Other bone Tietze's Episodic Completed MABLE OLIVO , [facility] Via disease and disease [facility] (2 sources.) (82148) Diabetes Type 2 no information no information OSCAR MIKE , Not Available mellitus with diabetes DO (09381) complications mellitus with (3 sources.) diabetic autonomic (poly)neuropat hy Unclassified no information no information no information RUSLAN MILES , [facility] Via (1 source.) [facility] (06404) Unclassified no information no information no information UNLIS MURRAY OTHER H Via (2 sources.) [facility] (15239) Unclassified no information no information no information UNLIS MURRAY OTHER H Via (1 source.) [facility] ([id number]) Unclassified no information no information no information UNLIS MURRAY OTHER H Via (1 source.) [facility] ([id number]) Procedures Procedure Normalized Procedure Procedure Result Performer Facility Date 01-09-2018 Alcohol and/or drug no information no name (no phon e) [facility] ([id number]) 04-29-2018 [facility] visit, estab pt no information no name (no audelia ne) [facility] ([id number]) 01-25-2018 [facility]QHC visit, estab pt no information no name (no audelia ne) [facility] ([id number]) 01-09-2018 [facility]HC visit, estab pt no information no name (no audelia ne) [facility] ([id number]) 01-08-2018 [facility]QHC visit, estab pt no information no name (no audelia ne) [facility] ([id number]) 04-29-2018 Hemoglobin no information no name (no phone) [facility] glycosylated a1c [facility] ([id number]) 04-29-2018 LAB NOT BILLED BY no information no name (no phone) [facility] ([id number]) 04-29-2018 Urine albumin no information no name (no phone) [id number] 04-29-2018 Urnls dip stick/tablet no information no name (no p ronit) [facility] ([id number]) Immunizations The data below is from unstructured sources No Known Immunizations No Known Immunizations No Known Immunizations No Known Immunizations No Known Immunizations No Known Immunizations No Known Immunizations No Known Immunizations No Known Immunizations No Known Immunizations No Known Immunizations No Known Immunizations No Known Immunizations No Known Immunizations No Known Immunizations No Known Immunizations No Known Immunizations No Known Immunizations No Known Immunizations No Known Immunizations No Known Immunizations No Known Immunizations No Known Immunizations No Known Immunizations No Known Immunizations No Known Immunizations No Known Immunizations No Known Immunizations No Known Immunizations No Known Immunizations No Known Immunizations No Known Immunizations No Known Immunizations No Known Immunizations No Known Immunizations No Known Immunizations No Known Immunizations No Known Immunizations No Known Immunizations No Known Immunizations No Known Immunizations No Known Immunizations No Known Immunizations No Known Immunizations No Known Immunizations No Known Immunizations No Known Immunizations No Known Immunizations No Known Immunizations No Known Immunizations No Known Immunizations No Known Immunizations No Known Immunizations No Known Immunizations No Known Immunizations No Known Immunizations No Known Immunizations No Known Immunizations No Known Immunizations No Known Immunizations No Known Immunizations No Known Immunizations No Known Immunizations No Known Immunizations No Known Immunizations No Known Immunizations No Known Immunizations No Known Immunizations No Known Immunizations No Known Immunizations No Known Immunizations No Known Immunizations No Known Immunizations No Known Immunizations No Known Immunizations No Known Immunizations No Known Immunizations No Known Immunizations No Known Immunizations Results Test Name Value Interpretation Reference Range Date Time Fa cility (Normalized) (Normalized) (Medline Reference) No panel information on 2019-09-23 Exp date 04/30 (no code) [facility] ([id number]) Lot 13.1~12.7~[id number] (no code) [facility] ([id number]) No panel information on 2019-02-11 A:C (IN HOUSE) >30 (no code) [facility] (40401) Color (U) 05/2019~clear~ye (no code) [facility] (79713) CRE 30~200 (no code) [facility] ([id number]) Exp date 11/2020 (no code) [facility] ([id number]) Lot 12.7~13.5~0993 (no code) [facility] ([id number]) Lot # [id number] (no code) [facility] ([id number]) No panel information on 2018-11-05 Albumin BCG dye 3.5 (L) 11-05-2018 Hospital [Mass/Vol] 18:320500 [facility] ([id number]) ALP [Catalytic 76 U/L (no code) 44 - 147 U/L 11-05-2018 Hosp ital activity/Vol] 18:320500 [facility] ([id number]) ALT [Catalytic 72 U/L (H) 4 - 40 U/L 11-05-2018 Hospit al activity/Vol] 18:320500 [facility] (50179) Anion gap 15 mmol/L (H) 3 - 11 mmol/L 11-05-2018 Hospital [Moles/Vol] 18:320500 [facility] (77121) AST [Catalytic 78 U/L (H) 10 - 34 U/L 11-05-2018 Hospi angel activity/Vol] 18:320500 [facility] ([id number]) Base excess 3.00 (no code) 11-05-2018 Hospital standard Calc 18:090500 [facility] (BldA) [facility] [Moles/Vol] (76034) Basophils (Bld) 0.0 10*3/uL (no code) 0 - 0.3 10*3/uL 11-05-2018 Hospital [#/Vol] 18:32-0500 [facility] (60041) Basophils/100 0.70 % (no code) 0.5 - 1 % 11-05-2018 Hospital WBC (Bld) 18:320500 [facility] (44167) Bilirubin 0.7 mg/dL (no code) 0.1 - 1.2 mg/dL 11-05-2018 Hospit al [Mass/Vol] 18:0500 [facility] (13589) Calcium 9.0 mg/dL (no code) 8.5 - 10.2 mg/dL 11-05-2018 Hospi angel [Mass/Vol] 18:0500 [facility] () Chloride 100 mmol/L (no code) 95 - 106 mmol/L 11-05-2018 Hospi angel [Moles/Vol] 18:0500 [facility] () CO2 (Bld) 46 (H) 11-05-2018 Hospital [Partial 18: [facility] pressure] [facility] () Creatinine 0.76 mg/dL (no code) 11-05-2018 Hospital [Mass/Vol] 18:0500 [facility] (31304) Eosinophils 0.2 10*3/uL (no code) 0.05 - 0.5 11-05-2018 Hospita l (Bld) [#/Vol] 10*3/uL 18:0500 [facility] (86306) Eosinophils/100 3.5 % (no code) 1 - 4 % 11-05-2018 Hospit al WBC (Bld) 18:0500 [facility] (28168) Erythrocyte 13.6 % (no code) 11.6 - 14.6 % 11-05-2018 Hospit al distribution 18:050 [facility] width (RBC) [facility] [Ratio] (14553) FLUAV and FLUBV no information (no code) 11-05-2018 Hospita l Ag IA.rapid Nom 18: [facility] (Nose) [facility] (80097) GFR/1.73 sq 109 (no code) 90 - 120 02-26-2019 Hospital M.predicted MDRD mL/min/{1.73_m2} mL/min/{1.73_m2} 18:32-0500 [facility] (S/P/Bld) [Vol [facility] rate/Area] (44394) Globulin (S) 3.4 g/dL (no code) 2 - 3.5 g/dL 11-05-2018 Hospit al [Mass/Vol] 18:320500 [facility] (16484) Glucose 260 mg/dL (H) 60 - 125 mg/dL 11-05-2018 Hospita l [Mass/Vol] 18:32-0500 [facility] (04222) HCO3 (BldMV) 28 (no code) 11-05-2018 Hospital [Moles/Vol] 18:09-0500 [facility] (63459) HCO3 (P) 25 (no code) 11-05-2018 Hospital [Moles/Vol] 18:320500 [facility] (32905) Hematocrit (Bld) 45.3 % (no code) 36.1 - 50.3 % 11-05-2018 H ospital [Volume 18:32-0500 [facility] fraction] [facility] (94869) Hemoglobin (Bld) 15.2 g/dL (no code) 12.1 - 17.2 g/dL 11-05-2018 Hospital [Mass/Vol] 18:32-0500 [facility] (35422) Lymphocytes 1.42 10*3/uL (no code) 0.9 - 2.9 11-05-2018 Hospita l (Bld) [#/Vol] 10*3/uL 18:32-0500 [facility] (16198) Lymphocytes/100 24.7 % (no code) 20 - 40 % 11-05-2018 Hospit al WBC (Bld) 18:320500 [facility] (60646) M. pneumoniae Ab no information (A) 11-05-2018 Hospit al Ql (S) 18:320500 [facility] (48871) MCH (RBC) 30.0 pg (no code) 27 - 31 pg 11-05-2018 Hospital [Entitic mass] 18:32-0500 [facility] (45724) MCHC (RBC) 33.6 g/dL (no code) 32 - 36 g/dL 11-05-2018 Hospital [Mass/Vol] 18:32-0500 [facility] (56028) MCV (RBC) 89.5 fL (no code) 80 - 100 fL 11-05-2018 Hospital [Entitic vol] 18:32-0500 [facility] (67536) Monocytes (Bld) 0.6 10*3/uL (no code) 0.3 - 0.9 11-05-2018 Hosp ital [#/Vol] 10*3/uL 18:32-0500 [facility] (35265) Monocytes/100 9.7 % (no code) 2 - 8 % 11-05-2018 Hospital WBC (Bld) 18:32-0500 [facility] (69591) Neutrophils 3.54 10*3/uL (no code) 1.7 - 7 10*3/uL 11-05-2018 H ospital (Bld) [#/Vol] 18:32-0500 [facility] (77717) Neutrophils/100 61.4 % (no code) 40 - 60 % 11-05-2018 Hospit al WBC (Bld) 18:32-0500 [facility] (52608) Osmolality Calc 288 (no code) 11-05-2018 Hospital [Osmolality] 18:320500 [facility] (90194) Oxygen adjusted 62 (L) 11-05-2018 Hospital to patient's 18:0500 [facility] actual [facility] temperature (90908) (BldA) [Partial pressure] Oxygen 91 (L) 11-05-2018 Hospital saturation 18:090500 [facility] adjusted to 0.5 [facility] (BldA) [Partial (99989) pressure] Oxygen 91 RM AIR (L) 11-05-2018 Hospital saturation 18:090500 [facility] adjusted to 0.5 [facility] (BldA) [Partial (75796) pressure] pH (Bld) 7.39 [pH] (no code) 7.38 - 7.42 [pH] 11-05-2018 Hospi angel 18:090500 [facility] (16475) Platelet mean 10.6 fL (H) 7.2 - 11.7 fL 11-05-2018 Hosp ital volume (Bld) 18:32-0500 [facility] [Entitic vol] [facility] (24397) Platelets (Bld) 173 10*3/uL (no code) 150 - 450 11-05-2018 Hosp ital [#/Vol] 10*3/uL 18:320500 [facility] (32893) Potassium 4.1 mmol/L (no code) 3.7 - 5.2 mmol/L 11-05-2018 Hosp ital [Moles/Vol] 18:320500 [facility] (35358) Protein 6.9 g/dL (no code) 6.4 - 8.3 g/dL 11-05-2018 Hospita l [Mass/Vol] 18:320500 [facility] (32145) RBC (Bld) 5.06 10*6/uL (no code) 4.2 - 6.1 11-05-2018 Hospital [#/Vol] 10*6/uL 18:320500 [facility] (61839) Sodium 136 mmol/L (no code) 135 - 145 mmol/L 11-05-2018 Hosp ital [Moles/Vol] 18:32-0500 [facility] (90951) Urea nitrogen 10 mg/dL (no code) 7 - 20 mg/dL 11-05-2018 Hospi angel [Mass/Vol] 18:32-0500 [facility] (44896) WBC (Bld) 5.76 10*3/uL (no code) 3.5 - 10.5 11-05-2018 Hospital [#/Vol] 10*3/uL 18:32-0500 [facility] (12237) No panel information on 2018-08-31 C. trachomatis no information (no code) 08-31-2018 [facility] ([id number]) rRNA CECILE+probe 22:40-0500 Ql (Unsp spec) N. gonorrhoeae no information (no code) 08-31-2018 [facility] ([id number]) rRNA CECILE+probe 22:40-0500 Ql (Unsp spec) T. vaginalis no information (no code) 08-31-2018 [facility] (0 0000) rRNA CECILE+probe 22:40-0500 Ql (Vag fld) No panel information on 2018-08-28 Albumin BCG dye 3.9 (no code) 08-28-2018 Hospital [Mass/Vol] 13:50-0500 [facility] (21712) ALP [Catalytic 92 U/L (no code) 44 - 147 U/L 08-28-2018 Hosp ital activity/Vol] 13:50-0500 [facility] (86272) ALT [Catalytic 72 U/L (H) 4 - 40 U/L 08-28-2018 Hospit al activity/Vol] 13:50-0500 [facility] (70548) Anion gap 18 mmol/L (H) 3 - 11 mmol/L 08-28-2018 Hospital [Moles/Vol] 13:50-0500 [facility] (83982) AST [Catalytic 79 U/L (H) 10 - 34 U/L 08-28-2018 Hospi angel activity/Vol] 13:50-0500 [facility] (50778) Bacteria LM Ql no information (no code) 08-28-2018 Hospital (Urine sed) 13:50-0500 [facility] (52650) Basophils (Bld) 0.0 10*3/uL (no code) 0 - 0.3 10*3/uL 08-28-2018 Hospital [#/Vol] 13:50-0500 [facility] (49676) Basophils/100 0.50 % (no code) 0.5 - 1 % 08-28-2018 Hospital WBC (Bld) 13:50-0500 [facility] (72486) Bilirubin 1.0 mg/dL (no code) 0.1 - 1.2 mg/dL 08-28-2018 Hospit al [Mass/Vol] 13:50-0500 [facility] (63636) Bilirubin N/A (A) 08-28-2018 Hospital Confirm Ql (U) 13:500500 [facility] (75227) Bilirubin Ql (U) no information (no code) 08-28-2018 Hospit al 13:50-0500 [facility] (69363) Calcium 9.1 mg/dL (no code) 8.5 - 10.2 mg/dL 08-28-2018 Hospi angel [Mass/Vol] 13:50-0500 [facility] (58273) CHLAMYDIA BY CECILE no information (no code) 08-28-2018 Hospit al 14:050500 [facility] (52415) Chloride 99 mmol/L (no code) 95 - 106 mmol/L 08-28-2018 Hospit al [Moles/Vol] 13:50-0500 [facility] (42501) Clarity (U) Cloudy (A) 08-28-2018 Hospital 13:50-0500 [facility] (73191) Color (U) Red (A) 08-28-2018 Hospital 13:50-0500 [facility] (32979) Creatinine 0.95 mg/dL (no code) 08-28-2018 Hospital [Mass/Vol] 13:50-0500 [facility] (83616) Eosinophils 0.2 10*3/uL (no code) 0.05 - 0.5 08-28-2018 Hospita l (Bld) [#/Vol] 10*3/uL 13:50-0500 [facility] (42859) Eosinophils/100 1.9 % (no code) 1 - 4 % 08-28-2018 Hospit al WBC (Bld) 13:50-0500 [facility] (58879) Epithelial 0-5/HPF (A) 08-28-2018 Hospital cells.squamous 13:50-0500 [facility] LM.HPF (Urine [facility] sed) [#/Area] (36529) Erythrocyte 13.9 % (no code) 11.6 - 14.6 % 08-28-2018 Hospit al distribution 13:50-0500 [facility] width (RBC) [facility] [Ratio] (45545) GFR/1.73 sq 85 (no code) 90 - 120 08-28-2018 Hospital M.predicted MDRD mL/min/{1.73_m2} mL/min/{1.73_m2} 13:50-0500 [facility] (S/P/Bld) [Vol [facility] rate/Area] (55411) Globulin (S) 3.3 g/dL (no code) 2 - 3.5 g/dL 08-28-2018 Hospit al [Mass/Vol] 13:50-0500 [facility] (21151) Glucose 549 mg/dL (HH) 60 - 125 mg/dL 08-28-2018 Hospita l [Mass/Vol] 13:50-0500 [facility] (31633) Glucose Test 3+ (A) 08-28-2018 Hospital strip (U) 13:50-0500 [facility] [Mass/Vol] [facility] (19889) GONOCOCCUS BY no information (no code) 08-28-2018 Hospital CECILE 14:05-0500 [facility] (39169) HCO3 (P) 20 (L) 08-28-2018 Hospital [Moles/Vol] 13:50-0500 [facility] (33348) Hematocrit (Bld) 42.6 % (no code) 36.1 - 50.3 % 08-28-2018 H ospital [Volume 13:50-0500 [facility] fraction] [facility] (30927) Hemoglobin (Bld) 14.1 g/dL (no code) 12.1 - 17.2 g/dL 08-28-2018 Hospital [Mass/Vol] 13:50-0500 [facility] (97581) Hemoglobin Ql 3+ (A) 08-28-2018 Hospital (U) 13:50-0500 [facility] (65099) Ketones (U) 1+ (A) 08-28-2018 Hospital [Mass/Vol] 13:50-0500 [facility] (94515) Leukocyte no information (no code) 08-28-2018 Hospital esterase Test 13:50-0500 [facility] strip Ql (U) [facility] (53114) Lymphocytes 1.15 10*3/uL (no code) 0.9 - 2.9 12-19-2018 Hospita l (Bld) [#/Vol] 10*3/uL 13:50-0500 [facility] (28462) Lymphocytes/100 14.4 % (no code) 20 - 40 % 08-28-2018 Hospit al WBC (Bld) 13:50-0500 [facility] (91051) MCH (RBC) 29.9 pg (no code) 27 - 31 pg 08-28-2018 Hospital [Entitic mass] 13:50-0500 [facility] (30257) MCHC (RBC) 33.1 g/dL (no code) 32 - 36 g/dL 08-28-2018 Hospital [Mass/Vol] 13:50-0500 [facility] (02740) MCV (RBC) 90.3 fL (no code) 80 - 100 fL 08-28-2018 Hospital [Entitic vol] 13:50-0500 [facility] () Monocytes (Bld) 0.7 10*3/uL (no code) 0.3 - 0.9 08-28-2018 Hosp ital [#/Vol] 10*3/uL 13:50-0500 [facility] () Monocytes/100 8.1 % (no code) 2 - 8 % 08-28-2018 Hospital WBC (Bld) 13:500500 [facility] (56713) Neutrophils 6.00 10*3/uL (no code) 1.7 - 7 10*3/uL 08-28-2018 H ospital (Bld) [#/Vol] 13:50-0500 [facility] (80193) Neutrophils/100 75.1 % (no code) 40 - 60 % 08-28-2018 Hospit al WBC (Bld) 13:50-0500 [facility] (89100) Nitrite Ql (U) no information (no code) 08-28-2018 Hospital 13:50-0500 [facility] (97097) Osmolality Calc 296 (H) 08-28-2018 Hospital [Osmolality] 13:500500 [facility] (25369) pH (U) 6.0 [pH] (no code) 4.6 - 8 [pH] 08-28-2018 Hospital 13:50-0500 [facility] (31770) Platelet mean 10.4 fL (H) 7.2 - 11.7 fL 08-28-2018 Hosp ital volume (Bld) 13:50-0500 [facility] [Entitic vol] [facility] (48059) Platelets (Bld) 170 10*3/uL (no code) 150 - 450 08-28-2018 Hosp ital [#/Vol] 10*3/uL 13:50-0500 [facility] (07506) Potassium 4.2 mmol/L (no code) 3.7 - 5.2 mmol/L 08-28-2018 Hosp ital [Moles/Vol] 13:50-0500 [facility] (90180) Protein (U) 1+ (A) 08-28-2018 Hospital [Mass/Vol] 13:500500 [facility] (14985) Protein 7.2 g/dL (no code) 6.4 - 8.3 g/dL 08-28-2018 Hospita l [Mass/Vol] 13:50-0500 [facility] (91947) RBC (Bld) 4.72 10*6/uL (no code) 4.2 - 6.1 08-28-2018 Hospital [#/Vol] 10*6/uL 13:50-0500 [facility] (04623) RBC LM.HPF TNTC (A) 08-28-2018 Hospital (Urine sed) 13:500500 [facility] [#/Area] [facility] (46429) Sodium 133 mmol/L (L) 135 - 145 mmol/L 08-28-2018 Hosp ital [Moles/Vol] 13:500500 [facility] (48456) Specific gravity 1.010 (no code) 08-28-2018 Hospital (U) [Rel 13:500500 [facility] density] [facility] (93514) TRICH VAG BY CECILE no information (no code) 08-28-2018 Hospit al 14:050500 [facility] (04144) Urea nitrogen 9 mg/dL (no code) 7 - 20 mg/dL 08-28-2018 Hospi angel [Mass/Vol] 13:50-0500 [facility] (58583) Urine Volume Urine Volume (no code) 08-28-2018 Hospital Sufficient 13:50-0500 [facility] (10mL) [facility] (95473) Urobilinogen Qn 0.2 (no code) 08-28-2018 Hospital (U) 13:50-0500 [facility] (57954) WBC (Bld) 7.99 10*3/uL (no code) 3.5 - 10.5 08-28-2018 Hospital [#/Vol] 10*3/uL 13:50-0500 [facility] (44878) WBC LM.HPF 2-5/HPF (A) 08-28-2018 Hospital (Urine sed) 13:50-0500 [facility] [#/Area] [facility] (06236) Yeast.budding Ql No Yeast present (no code) 08-28-2018 Hosp ital (Urine sed) 13:50-0500 [facility] (58328) no information Urine Saved if (A) 08-28-2018 Hospital Culture Needed 13:50-0500 [facility] (48hrs from time [facility] of collection) (37434) No panel information on 2018-07-10 Albumin mass 4.1 g/dL (no code) 3.4 - 5.4 g/dL 07-10-2018 Hosp ital conc 09:380400 [facility] (93606) ALP enzyme 97 U/L (no code) 44 - 147 U/L 07-10-2018 Hospital act/vol 09:380400 [facility] (16527) ALT enzyme 72 U/L (H) 4 - 40 U/L 07-10-2018 Hospital act/vol 09:380400 [facility] (19299) Amylase enzyme 31 U/L (no code) 40 - 140 U/L 07-10-2018 Hosp ital act/vol 09:380400 [facility] (03831) Anion gap 3 19 mmol/L (H) 3 - 11 mmol/L 07-10-2018 Hospit al molar conc 09:38 [facility] (39737) AST enzyme 80 U/L (H) 10 - 34 U/L 07-10-2018 Hospital act/vol 09: [facility] (46855) Bacteria LM.HPF no information (no code) 07-10-2018 Hospita l #/area (Urine 10: [facility] sed) [facility] (96342) Basophils Auto 0.1 10*3/uL (no code) 0 - 0.3 10*3/uL 07-10-2018 Hospital #/vol (Bld) 09:38 [facility] (98393) Basophils/100 0.60 % (no code) 0.5 - 1 % 07-10-2018 Hospital WBC Auto (Bld) 09: [facility] (78378) Bilirubin N/A (A) 07-10-2018 Hospital [Presence] in 10: [facility] Urine by [facility] Confirmatory (24169) method Bilirubin Ql (U) 0.6 (no code) 07-10-2018 Hospital 09: [facility] (66595) Bilirubin Ql (U) no information (no code) 07-10-2018 Hospit al 10:040 [facility] (89746) Calcium mass 10.0 mg/dL (no code) 8.5 - 10.2 mg/dL 07-10-2018 H ospital conc 09: [facility] (86392) Chloride molar 97 mmol/L (no code) 95 - 106 mmol/L 07-10-2018 H ospital conc 09: [facility] (49730) Clarity Nom (U) Clear (no code) 07-10-2018 Hospital 10:040 [facility] (29910) CO2 molar conc 26 mmol/L (no code) 23 - 29 mmol/L 07-10-2018 Ho spital 09: [facility] (30740) Color Nom (U) Yellow (no code) 07-10-2018 Hospital 10:58-0400 [facility] (81670) Creatinine mass 0.85 mg/dL (no code) 07-10-2018 Hospital conc 09: [facility] (37812) Eosinophils Auto 0.1 10*3/uL (no code) 0.05 - 0.5 07-10-2018 Ho spital #/vol (Bld) 10*3/uL 09: [facility] (18161) Eosinophils/100 1.6 % (no code) 1 - 4 % 07-10-2018 Hospit al WBC Auto (Bld) 09: [facility] (80960) Erythrocyte 13.9 % (no code) 11.6 - 14.6 % 07-10-2018 Hospit al distribution 09: [facility] width Auto Ratio [facility] (RBC) (60839) GFR/1.73 sq M 96 (no code) 90 - 120 07-10-2018 Hospital predicted among mL/min/{1.73_m2} mL/min/{1.73_m2} 09: [facility] non-blacks MDRD [facility] vol rate/area (18318) (S/P/Bld) Globulin 3.7 g/dL (H) 2 - 3.5 g/dL 07-10-2018 Hospital Calculated mass 09: [facility] conc (S) [facility] (67761) Glucose no information (no code) 07-10-2018 Hospital [Mass/volume] in 10: [facility] Urine by Test [facility] [place] ([id number] Glucose mass 239 mg/dL (H) 60 - 125 mg/dL 07-10-2018 Hosp ital conc 09: [facility] (77194) Hematocrit Auto 43.7 % (no code) 36.1 - 50.3 % 07-10-2018 Ho spital Volume Fraction 09: [facility] (Bld) [facility] (65854) Hemoglobin mass 14.4 g/dL (no code) 12.1 - 17.2 g/dL 07-10-2018 Hospital conc (Bld) 09:38 [facility] (18593) Hemoglobin Test no information (no code) 07-10-2018 Hospita l strip Ql (U) 10: [facility] (60383) Ketones mass no information (no code) 07-10-2018 Hospital conc (U) 10: [facility] (50857) Leukocyte no information (no code) 07-10-2018 Hospital esterase Test 10: [facility] strip Ql (U) [facility] (82659) Lipase enzyme 28 U/L (no code) 10 - 73 U/L 07-10-2018 Hospit al act/vol 09: [facility] (64379) Lymphocytes Auto 1.94 10*3/uL (no code) 0.9 - 2.9 07-10-2018 Ho spital #/vol (Bld) 10*3/uL 09: [facility] () Lymphocytes/100 23.5 % (no code) 20 - 40 % 07-10-2018 Hospit al WBC Auto (Bld) 09: [facility] (47134) MCH Auto Entitic 29.6 pg (no code) 27 - 31 pg 07-10-2018 Hosp ital mass (RBC) 09: [facility] (46582) MCHC Auto mass 33.0 g/dL (no code) 32 - 36 g/dL 07-10-2018 Hosp ital conc (RBC) 09: [facility] (84167) MCV Auto Entitic 89.7 fL (no code) 80 - 100 fL 07-10-2018 Hos pital volume (RBC) 09: [facility] (75236) Monocytes Auto 0.4 10*3/uL (no code) 0.3 - 0.9 07-10-2018 Hospi angel #/vol (Bld) 10*3/uL 09: [facility] (76959) Monocytes/100 5.3 % (no code) 2 - 8 % 07-10-2018 Hospital WBC Auto (Bld) 09:38-0400 [facility] (84418) Mucus LM Ql 1+ (A) 07-10-2018 Hospital (Urine sed) 10: [facility] (23472) Neutrophils Auto 5.68 10*3/uL (no code) 1.7 - 7 10*3/uL 07-10-20 18 Hospital #/vol (Bld) 09: [facility] (52416) Neutrophils/100 69.0 % (no code) 40 - 60 % 07-10-2018 Hospit al WBC Auto (Bld) 09: [facility] (49732) Nitrite Test no information (no code) 07-10-2018 Hospital strip Ql (U) 10: [facility] (83257) Osmolality 294 mosm/kg (no code) 275 - 295 07-10-2018 Hospital mosm/kg 09: [facility] (34499) pH Test strip 5.5 [pH] (no code) 4.6 - 8 [pH] 07-10-2018 Hospi angel (U) 10:58040 [facility] (84598) Platelet mean 10.4 fL (H) 7.2 - 11.7 fL 07-10-2018 Hosp ital volume Auto 09: [facility] Entitic volume [facility] (85428) Platelets Auto 180 10*3/uL (no code) 150 - 450 07-10-2018 Hospi angel #/vol (d) 10*3/uL 09: [facility] (48344) Potassium molar 4.0 mmol/L (no code) 3.7 - 5.2 mmol/L 07-10-2018 Hospital conc 09: [facility] (94611) Protein mass 7.8 g/dL (no code) 6.4 - 8.3 g/dL 07-10-2018 Hosp ital conc 09: [facility] (73851) Protein mass no information (no code) 0 - 20 mg/dL 07-10-2018 H ospital conc (U) 10:580400 [facility] (51932) RBC Auto #/vol 4.87 10*6/uL (no code) 4.2 - 6.1 07-10-2018 Hosp ital (Bld) 10*6/uL 09: [facility] (34381) RBC LM.HPF no information (no code) 0 - 4 /[HPF] 07-10-2018 Hos pital #/area (Urine 10: [facility] sed) [facility] (83121) Sodium molar 138 mmol/L (no code) 135 - 145 mmol/L 07-10-2018 H ospital conc 09: [facility] (13980) Specific gravity 1.015 (no code) 07-10-2018 Hospital Relative Density 10: [facility] (U) [facility] (16505) Urea nitrogen 17 mg/dL (no code) 7 - 20 mg/dL 07-10-2018 Hospi angel mass conc 09: [facility] (84136) Urine Volume Urine Volume (no code) 07-10-2018 Hospital Sufficient 10:580 [facility] (10mL) [facility] (56744) Urobilinogen 0.2 (A) 0.2 - 1 07-10-2018 Hospital Test strip Qn {Chantel'U}/dL {Chantel'U}/dL 10: [facility] (U) [facility] (26617) WBC Auto #/vol 8.24 10*3/uL (no code) 3.5 - 10.5 07-10-2018 Hos pital (Bld) 10*3/uL 09:380 [facility] (01685) WBC LM.HPF Nothing Seen on (no code) 07-10-2018 Hospital #/area (Urine Microscopic 10:580400 [facility] sed) [facility] (71574) Yeast.budding No Yeast present (no code) 07-10-2018 Hospita l [Presence] in 10:580400 [facility] Urine sediment [facility] (65235) no information Urine Saved if (A) 07-10-2018 Hospital Culture Needed 10:580400 [facility] (48hrs from time [facility]) (98918) No panel information on 2018-04-29 Albumin mass 3.9 g/dL (N) 3.4 - 5.4 g/dL [facility] (43363) Albumin/Globulin 1.6 (N) [facility] mass ratio [facility] (89088) ALP enzyme 110 U/L (N) 44 - 147 U/L [facility] (91487) ALT enzyme 58 U/L (H) 4 - 40 U/L [facility] (37394) AST enzyme 58 U/L (H) 10 - 34 U/L [facility] (07978) Bilirubin mass 0.7 mg/dL (N) 0.1 - 1.2 mg/dL [facility] (53441) BLO trace-intact (no code) [facility] (01319) Calcium mass 9.1 mg/dL (N) 8.5 - 10.2 mg/dL [facility] (74830) Chloride molar 95 mmol/L (L) 95 - 106 mmol/L [facility] (19377) CO2 molar conc 30 mmol/L (N) 23 - 29 mmol/L [facility] (39507) Creatinine mass 0.73 mg/dL (N) [facility] (59048) Exp date 11/2019 (no code) [facility] (81440) GFR/1.73 sq M 128 (N) 90 - 120 [facility] predicted among mL/min/{1.73_m2} mL/min/{1.73_m2} [facility] MDRD [facility] rate/area (53424) (S/P/Bld) GFR/1.73 sq 110 (N) 90 - 120 [facility].predicted MDRD mL/min/{1.73_m2} mL/min/{1.73_m2} [facility] rate/area [facility] (60756) Globulin 2.4 (N) [facility] Calculated mass [facility] (S) [facility] (94172) Glucose mass 538 mg/dL (H) 60 - 125 mg/dL [facility] (07445) Hemoglobin 13.5 % (no code) 0 - 5.7 % [facility] A1c/Hemoglobin.t Center [facility] fraction (Bld) (01442) KET 12/2018~clear~ye (no code) [facility] llow~none~2+~neg [facility] ~neg [facility] (86377) LUC neg~neg (no code) [facility] (87496) [address] (no code) [facility] (23416) Lot # [id number] (no code) [facility] (25222) pH (Bld) 6.5 [pH] (no code) 7.38 - 7.42 [pH] [facility] (36507) Potassium molar 4.7 mmol/L (N) 3.7 - 5.2 mmol/L [facility] (86137) Previous A1c N/A (no code) [facility] (20932) Protein mass 6.3 g/dL (N) 6.4 - 8.3 g/dL [facility] (12779) Protein mass no information (no code) 0 - 20 mg/dL [facility] (U) [facility] (45564) SG 1.015 (no code) [facility] (18042) Sodium molar 133 mmol/L (L) 135 - 145 mmol/L [facility] (90936) Urea nitrogen 12 mg/dL (N) 7 - 20 mg/dL [facility] (40126) Urea NOT APPLICABLE (no code) [facility] nitrogen/Creatin [facility] (23479) URO 0.2 (no code) [facility] (67903) No panel information on 2017-10-06 BLO 06/2018~turbid~l (no code) [facility]~none~2+~N [facility] egative~Negative (81238) ~<=1.005~Trace-l ysed Exp date no information (no code) [facility] (61687) Exp date 03/16/18 (no code) [facility] (23945) Lot # [id number] (no code) [facility] (38085) Lot # [id number] (no code) [facility] (75906) PC HIGH~9:00 A.M. (no code) [facility] (72803) pH (Bld) 5.5 [pH] (no code) 7.38 - 7.42 [pH] [facility] (24564) Protein mass no information (no code) 0 - 20 mg/dL [facility] (U) [facility] (45157) URO 0.2 (no code) [facility] (37535) Vital Signs Vital Sign Value Interpretation Reference Date Time Care Prov ider Facility (Normalized) (Normalized) Range BMI (Body Mass 52.57 kg/m2 (no code) 15 - 25 kg/m2 04-29-2018 Jossue DILLARD Community Index) 09:40-[address] [place] [address] ([id number]) BMI (Body Mass 57.29 kg/m2 (no code) 15 - 25 kg/m2 01-11-2018 HO LLY GAULT Community Index) 10:30-[address] [place] [address] (29678) BMI (Body Mass 57.29 kg/m2 (no code) 15 - 25 kg/m2 01-08-2018 HO LLY GAULT Community Index) 12:40-[address] [place] [address] ([id number]) BMI (Body Mass 57.29 kg/m2 (no code) 15 - 25 kg/m2 01-04-2018 HO ANNIAJarvis GAULT Community Index) 10:00-[address] [facility] (37138) Body 98 [degF] (no code) 97.8 - 99.0 04-29-2018 [facility] Temperature [degF] 09:40-0400 04848 [facility] (57556) Body 98.5 [degF] (no code) 97.8 - 99.0 01-09-2018 RIAZ JACESouth [facility] Temperature [degF] 12:40-0400 90850 [facility] (59232) Body 98.3 [degF] (no code) 97.8 - 99.0 01-08-2018 RIAZ JACE T [facility] Temperature [degF] 12:40-0400 37006 [facility] (50534) Height 175.26 cm (no code) cm 04-29-2018 EMORY DILLARD [facility] 09:40-[address] [facility] (90657) Height 175.26 cm (no code) cm 01-25-2018 NISSA LYNSEY Co [facility]munity 11:45-[address] [place] [address] (50244) Height 175.26 cm (no code) cm 01-11-2018 RIAZ GAULT [facility] 10:30-[address] [facility] (29139) Height 175.26 cm (no code) cm 01-09-2018 RIAZ GAULT [facility] 12:40-[address] [facility] (49939) Height 175.26 cm (no code) cm 01-08-2018 RIAZ GAULT [facility] 12:40-[address] [facility] (76162) Height 175.26 cm (no code) cm 01-04-2018 RIAZ GAULT Co [facility]munity 10:00-[id number] [place] [address] (75232) Pulse Oximetry 91 % (no code) 95 - 100 % 01-09-2018 RIAZ GA ULT Community 12:40-[address] [facility] (55525) Pulse Oximetry 94 % (no code) 95 - 100 % 01-08-2018 RIAZ PAULINO [facility] 12:40-[address] [facility] (09446) Weight 161.48 kg (no code) kg 04-29-2018 EMORY DILLARD [facility] 09:40-[address] [facility] (48512) Weight 176 kg (no code) kg 01-11-2018 RIAZ GAULT Com munity 10:30-[address] [facility] (33240) Weight 176 kg (no code) kg 01-08-2018 RIAZ GAULT Com munity 12:40-[address] [facility] (20950) Weight 176 kg (no code) kg 01-04-2018 RIAZ GAULT Com munity 10:00-[address] [facility] (17358) Interventions No Information Plan of Treatment Normalized Care Care Detail Care Activity Date Care Provider F acility Activity (CHM) Chronic Health no information 06-20-2018 - RIAZ JESUSLORA [phone] [facility] Health Maintenance 06-20-2018 - [facility] 06-20-2018 [place] ([id number]) (CH) Chronic Health [facility] 09-17-2018 RIAZ JESUSLORA [phone] [facility] Maintenance [facility] (65480) Annual wellness no information 07-09-2018 - RIAZ EDINLORA 45336 [facility] visit 07-09-2018 - [facility] 07-09-2018 [place] (29515) no information no information no information EMORY DILLARD [phone] [facility] (85242) Goals No Information Social History The data below is from unstructured sources History Response Recorde d Date/Time Hx Family Cancer Y grandmother unkno wn what kind 01/20/13 8:28pm History Response Recorde d Date/Time Alcohol Use Denies Use 0 01/20/13 8:24pm Recreational Drug Use N 01/20/13 8:24pm Recent Foreign Travel N 01/20/13 8:24pm Recent Infectious Disease Exposure N 01/20/13 8:24pm Hospitalization with Isolation Denies 01/22/13 3:38pm History Response Recorde d Date/Time Alcohol Use Denies Use 0 02/11/13 2:01pm Recreational Drug Use Y WEED 02/11/13 2:01pm Recent Foreign Travel N 01/20/13 8:24pm Recent Infectious Disease Exposure N 01/20/13 8:24pm Hospitalization with Isolation Denies 01/22/13 3:38pm Functional Status No Information Mental Status No Information Encounters Encounter Normalized Encounter Encounter Diagnosis Care Provi vanessa Organization Date Type 05-30-2018 (ACUTE) Acute Visit no information RIAZ ALVARENGA (no phone) [facility] [place] - (no phone) 05-30-2018 - 05-30-2018 04-29-2018 (ACUTE) Acute Visit Dysuria EMORY DILLARD (no [facility] [place] - phone) EMORY stevezCAREY (no phone) 04-29-2018 (no phone) EMORY - zzCAREY (no phone) 04-29-2018 06-20-2018 (CHM) Chronic Health no information RIAZ ALVARENGA (no phone) [facility] [place] - Maintenance (no phone) 06-20-2018 - 06-20-2018 05-09-2018 (DM-ED) Diabetes no information RIAZ ALVARENGA (no audelia ne) [facility] [place] Education (no phone) 06-06-2018 (IPT) Internal PCP no information RIOS NUÑEZ (no [facility] [place] - Transfer phone) (no phone) 06-06-2018 - 06-06-2018 05-29-2018 (MAWV) Medicare Annual Encounter for general RIAZ ALVARENGA (no phone) [facility] [place] - Wellness Visit adult medical (no phone) 05-29-2018 examination without - abnormal findings 05-29-2018 07-09-2018 Annual wellness visit no information RIAZ ALVARENGA (n o phone) [facility] [place] (no phone) 01-08-2018 Emergency department no information no name (no audelia ne) no organization name - patient visit (no phone) 01-08-2018 10-10-2017 Emergency department no information no name (no audelia ne) no organization name - patient visit (no phone) 10-10-2017 10-06-2017 Emergency department no information no name (no audelia ne) no organization name - patient visit (no phone) 10-06-2017 09-24-2017 Emergency department no information no name (no audelia ne) no organization name - patient visit (no phone) 09-24-2017 09-24-2017 Emergency department no information no name (no audelia ne) no organization name - patient visit (no phone) 09-24-2017 10-08-2016 Emergency department no information no name (no audelia ne) no organization name patient visit (no phone) 04-12-2016 Emergency department no information no name (no audelia ne) no organization name - patient visit (no phone) 04-12-2016 12-27-2014 Emergency department no information no name (no audelia ne) no organization name - patient visit (no phone) 12-27-2014 12-27-2014 Emergency department no information no name (no audelia ne) no organization name - patient visit (no phone) 12-27-2014 10-28-2014 Emergency department no information no name (no audelia ne) no organization name - patient visit (no phone) 10-29-2014 03-14-2014 Emergency department no information no name (no audelia ne) no organization name - patient visit (no phone) 03-14-2014 12-06-2013 Emergency department no information no name (no audelia ne) no organization name - patient visit (no phone) 12-06-2013 02-11-2013 Emergency department no information no name (no audelia ne) no organization name - patient visit (no phone) 02-11-2013 09-12-2012 Emergency department no information no name (no audelia ne) no organization name - patient visit (no phone) 09-12-2012 06-10-2012 Emergency department no information no name (no audelia ne) no organization name - patient visit (no phone) 06-10-2012 06-10-2012 Emergency department no information no name (no audelia ne) no organization name - patient visit (no phone) 06-10-2012 05-15-2012 Emergency department no information no name (no audelia ne) no organization name - patient visit (no phone) 05-15-2012 05-15-2012 Emergency department no information no name (no audelia ne) no organization name - patient visit (no phone) 05-15-2012 08-21-2011 Emergency department no information no name (no audelia ne) no organization name - patient visit (no phone) 08-21-2011 06-07-2011 Emergency department no information no name (no audelia ne) no organization name - patient visit (no phone) 06-07-2011 02-16-2011 Emergency department no information no name (no audelia ne) no organization name - patient visit (no phone) 02-16-2011 06-16-2010 Emergency department no information no name (no audelia ne) no organization name - patient visit (no phone) 06-16-2010 02-04-2010 Emergency department no information no name (no audelia ne) no organization name - patient visit (no phone) 02-04-2010 10-08-2016 Evaluation and no information no name (no phone) n o organization name - management of (no phone) 10-09-2016 inpatient 10-08-2016 Evaluation and no information no name (no phone) n o organization name - management of (no phone) 10-09-2016 inpatient 01-15-2015 Evaluation and no information no name (no phone) n o organization name - management of (no phone) 01-17-2015 inpatient 01-15-2015 Evaluation and no information no name (no phone) n o organization name - management of (no phone) 01-17-2015 inpatient 06-24-2012 Evaluation and no information no name (no phone) n o organization name - management of (no phone) 06-25-2012 inpatient 06-05-2012 Evaluation and no information no name (no phone) n o organization name - management of (no phone) 06-07-2012 inpatient 06-05-2012 Evaluation and no information no name (no phone) n o organization name - management of (no phone) 06-07-2012 inpatient 03-17-2012 Evaluation and no information no name (no phone) n o organization name - management of (no phone) 03-17-2012 inpatient 01-31-2010 Evaluation and no information no name (no phone) n o organization name - management of (no phone) 02-02-2010 inpatient 07-10-2018 Patient encounter no information no name (no phone) no organization name - (no phone) 07-10-2018 04-29-2018 Patient encounter no information no name (no phone) no organization name (no phone) 01-25-2018 Patient encounter no information no name (no phone) no organization name (no phone) 01-11-2018 Patient encounter no information no name (no phone) no organization name (no phone) 01-09-2018 Patient encounter no information no name (no phone) no organization name (no phone) NEGATED Patient encounter no information no name (no phone) no organization name 01-08-2018 (no phone) 01-04-2018 Patient encounter no information no name (no phone) no organization name (no phone) NEGATED Patient encounter no information no name (no phone) no organization name 11-06-2017 (no phone) - 11-06-2017 10-16-2017 Patient encounter no information no name (no phone) no organization name (no phone) 10-12-2017 Patient encounter no information no name (no phone) no organization name - (no phone) 10-12-2017 10-10-2017 Patient encounter no information no name (no phone) no organization name (no phone) 10-10-2017 Patient encounter no information no name (no phone) no organization name (no phone) 10-06-2017 Patient encounter no information no name (no phone) no organization name (no phone) 09-24-2017 Patient encounter no information no name (no phone) no organization name (no phone) 10-12-2019 Patient encounter no information SMAIRA LU (no [facility] procedure phone) of Doug Patel sharonjarvis (no 10-13-2019 phone) 09-23-2019 Patient encounter no information no name (no phone) no organization name procedure (no phone) 09-17-2019 Patient encounter no information no name (no phone) no organization name procedure (no phone) 09-05-2019 Patient encounter no information no name (no phone) no organization name procedure (no phone) 08-11-2019 Patient encounter no information no name (no phone) no organization name - procedure (no phone) 08-11-2019 02-11-2019 Patient encounter no information no name (no phone) no organization name procedure (no phone) 02-11-2019 Patient encounter no information no name (no phone) no organization name procedure (no phone) 02-06-2019 Patient encounter no information no name (no phone) no organization name - procedure (no phone) 02-07-2019 11-26-2018 Patient encounter no information no name (no phone) no organization name - procedure (no phone) 11-26-2018 11-21-2018 Patient encounter no information no name (no phone) no organization name - procedure (no phone) 11-21-2018 11-12-2018 Patient encounter no information no name (no phone) no organization name - procedure (no phone) 11-12-2018 11-05-2018 Patient encounter no information no name (no phone) no organization name - procedure (no phone) 11-05-2018 08-28-2018 Patient encounter no information no name (no phone) no organization name - procedure (no phone) 08-28-2018 11-03-2016 Patient encounter no information no name (no phone) no organization name - procedure (no phone) 11-04-2016 11-01-2016 Patient encounter no information no name (no phone) no organization name procedure (no phone) 10-08-2016 Patient encounter no information no name (no phone) no organization name - procedure (no phone) 10-09-2016 01-24-2013 Patient encounter no information no name (no phone) no organization name procedure (no phone) 01-24-2013 Patient encounter no information no name (no phone) no organization name procedure (no phone) 01-20-2013 Patient encounter no information no name (no phone) no organization name - procedure (no phone) 01-22-2013 01-20-2013 Patient encounter no information no name (no phone) no organization name - procedure (no phone) 01-22-2013 02-22-2012 Patient encounter no information no name (no phone) no organization name - procedure (no phone) 02-24-2012 02-22-2012 Patient encounter no information no name (no phone) no organization name - procedure (no phone) 02-24-2012 03-20-2006 Patient encounter no information no name (no phone) no organization name procedure (no phone) 03-05-2006 Patient encounter no information no name (no phone) no organization name - procedure (no phone) 03-06-2006 06-05-2018 Telephone encounter no information RIAZ ALVARENGA (no phone) [facility] [place] - (no phone) 06-05-2018 - 06-05-2018 04-30-2018 Telephone encounter no information EMORY DILLARD (n o [facility] [address] (no - phone) EMORY Mayer phone) 04-30-2018 (no phone) EMORY Mayer (no phone) 04-30-2018 04-26-2018 Telephone encounter no information RIAZ ALVARENGA (no phone) [facility] - (no phone) 04-26-2018 - 04-26-2018 NEGATED no information Encounter for other no name (no phon e) no organization name preprocedural (no phone) examination no information Encounter for general no name (no phone) no o rganization name adult medical (no phone) examination without abnormal findings Medical Equipment Equipment Code (if Equipment Original Equipment Identifier P rocedure Code (if Dates provided) Text (if provided) (if provided) provided) no information as directed no information (no no information 1 10-16-2017 named assigning authority) Payers Normalized Payer Value Medicaid no information Private Health Insurance no information Medicare no information History general Narrative - Reported Note Type Note Facility History general Narrative - Reported Type Medical bleeding ulcer History Medical type 2 diabetes History Medical stents in pancreas History Medical hypertension History Medical schizophrenia History Surgical bilateral knees...scopes History Surgical stent placed in pancreas History Surgical stent removed form pancreas History Surgical cholecystectomy History Surgical Heart Cath 2018 History Hospitaliz post surgeries ation History Hospitaliz [facility] [place]- Abd pain 09/24/2017 ation History [facility] ([id number]) Advance Directives Directive Response Recor ded Date Advance Directives N 8:23pm Health Care Power of Rn Internal Medicine N 01/20/13 8:23pm Organ Donor N 01/20/13 8 :23pm Directive Response Recor ded Date Advance Directives N 12/21 2:01pm Health Care Power of Rn Internal Medicine N 01/20/13 8:23pm Organ Donor N 01/20/13 8 :23pm Additional Source Comments This clinical document has been generated using [employer] software that has been certified by the Office of the National Coordinator for Health Information Technology (ONC 15.99.04.3023.[id number]) and the National Committee for [employer] (NCQA, as an eMeasure certified technology). FOR RECORDS PERTAINING TO PATIENTS WHO ARE OR HAVE BEEN ENROLLED IN A CHEMICAL D EPENDENCY/SUBSTANCE ABUSE PROGRAM, SOME INFORMATION MAY BE OMITTED. This clinica l summary was aggregated from multiple sources. Caution should be exercised in using it in the provision of clinical care. This summary normalizes information from multiple sources, and as a consequence, information in this document may ma terially change the coding, format and clinical context of patient data. In katarzyna tion, data may be omitted in some cases. CLINICAL DECISIONS SHOULD BE BASED ON T HE PRIMARY CLINICAL RECORDS. [employer] provides no warranty or guara ntee of the accuracy or completeness of information in this document.The followi information is based on time limited clinical information UNRECOGNIZED CONTENT PROVIDED BELOW FOR UNRECOGNIZED SECTION MEDICAL (GENERAL) HISTORY Type Description Date Medical History bleeding ulcer Medical History type 2 diabetes Medical History stents in pancreas Medical History hypertension Medical History schizophrenia Surgical History bilateral knees...scopes Surgical History stent placed in pancreas Surgical History stent removed form pancreas Hospitalization History post surgeries Hospitalization History [facility]- Abd pain 09/24/2017 Type Description Date Medical History bleeding ulcer Medical History type 2 diabetes Medical History stents in pancreas Medical History hypertension Medical History schizophrenia Surgical History bilateral knees...scopes Surgical History stent placed in pancreas Surgical History stent removed form pancreas Surgical History cholecystectomy Hospitalization History post surgeries Hospitalization History [facility]- Abd pain 09/24/2017 UNRECOGNIZED CONTENT PROVIDED BELOW FOR UNRECOGNIZED SECTION REASON FOR VISIT [facility] medication[facility] labRequests return callDM ed scheduled Blood in Urine , burning urination x 1 week -- mzaldana, kaleb updateDM ShoesMed ication refillPrior Authorization- LantusRequests return callMedication question [id number]-Tyrese
--- OUTSIDE RECORDS SUMMARY | 2019-11-21 01:48 | XMS REPORT | Clinical Summary ---
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 If you d o not see the information that you expected, contact [facility] of Information in [facility] [employer] Information Management department at [phone] for further assistan ce in locating additional records.[facility] Allergies No Known Allergies Medications End Date Status Medication Sig Dispensed Refills Start Date Active metformin (GLUCOPHAGE) Take 500 mg 0 500 mg tablet by mouth Twice Daily With Meals. Active MULTIVITAMIN PO Take by mouth 0 Daily. Active docusate (COLACE) 100 mg Take 1 Cap by 60 0 capsule mouth Twice 8 Daily. HOLD FOR DIARRHEA Active insulin Inject under 0 glargine,hum.rec.anlog the skin. (LANTUS SC) Active insulin aspart (NOVOLOG Inject under 0 FLEXPEN U-100 INSULIN SC) the skin. Active potassium 0 Active cetirizine HCl (ZYRTEC Take by 0 PO) mouth. Active amLODIPine (NORVASC) 10 Take 10 mg by 0 mg tablet mouth daily. Active furosemide (LASIX) 40 mg Take 40 mg by 0 tablet mouth every morning. Active LISINOPRIL PO Take by [address] Take 40 mg by 0 (PROTONIX) 40 mg tablet mouth daily. Active finasteride (PROSCAR) 5 Take one 90 tablet 3 mg tablet tablet by 8 mouth daily. Active phenazopyridine Take one 30 tablet 1 (PYRIDIUM) 100 mg tablet tablet by 8 mouth three times daily as needed for Pain for up to 30 doses. Active tamsulosin (FLOMAX) 0.4 Take one 90 capsule 3 /201 mg capsule capsule by 8 mouth daily. Take 30 min after same meal. Do not cut/ crush/ chew. Active Problems Problem Noted Date Back pain 04/30/2008 Family History Medical History Relation Name Comments Hypertension Father Diabetes Maternal Grandmother Cancer Paternal Grandmother Relation Name Status Comments Father Maternal Grandmother Paternal Grandmother Social History Date Tobacco Use Types Packs/Day Years Used Former Smoker 1.5 Smokeless Tobacco: Never Used Drinks/Week oz/Week Comments Alcohol Use Quit 13 years ago, p ack and a half a day Yes Sex Assigned at Date Recorded Not on file Industry Job Start Date Occupation Not on file Not on file Not on file Travel End Travel History Travel Start No recent travel history available. Last Filed Vital Signs Reading Time Taken Comments Vital Sign 177/80 08/29/2018 2:40 PM [employer] Blood Pressure 95 08/29/2018 2:40 PM [employer] Pulse 37 C (98.6 F) 04/30/2008 2:00 PM CDT Temperature - - Respiratory Rate 96% 04/30/2008 2:00 PM CDT Oxygen Saturation - - Inhaled Oxygen Concentration 163.7 kg (361 lb) 08/29/2018 2:38 PM [employer] Weight 175.3 cm (5' 9") 08/29/2018 2:38 PM [employer] Height 53.31 08/29/2018 2:38 PM [employer] Body Mass Index Plan of Treatment Health Maintenance Due Date Last Done Comments MEDICARE ANNUAL WELLNESS 1970 VISIT DTAP/TDAP VACCINES (1 - 1981 Tdap) HIV SCREENING 1985 PHYSICAL (COMPREHENSIVE) 1988 EXAM INFLUENZA VACCINE 04/10/2019 Results Not on filefrom Last 3 Months Insurance Type Payer Benefit Subscriber ID Effective Phone Address Plan / Dates Group Medicare MEDICARE MEDICARE xxxxxxxxxxx 2013- PART A AND Present B [id number] 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
--- OUTSIDE RECORDS SUMMARY | 2019-11-21 01:49 | XMS REPORT | Encounter Summary ---
Author Author [facility] Organization [facility] Address Unknown Phone Unavailable Care Team Providers Care Head Banquet Waiter/Waitress Name Role Phone PCP Unavailable Encounter Details Care Team Description Date Type Department Sergey Hdz MD [address] [facility] [address] [place] [address] [phone] [facility] [address] [place] [address] Social History Date Tobacco Use Types Packs/Day Years Used Never Assessed Sex Assigned at Date Recorded Not on file Industry Job Start Date Occupation Not on file Not on file Not on file Travel End Travel History Travel Start No recent travel history available. documented as of this encounter Medications at Time of Discharge Start Date End Date Medication Sig Dispensed Refills 09/13/2012 oxyCODONE-acetaminophen Take by 60 0 (PERCOCET) 5-325 mg per mouth. tablet 10/01/2012 04/14/2015 CYMBALTA 30 mg capsule TAKE 1 30 0 CAPSULE DAILY 10/01/2012 04/14/2015 LANTUS SOLOSTAR 100 inject 18 15 0 unit/mL (3 mL) pen units q am, or as directed, sub-q 10/01/2012 04/14/2015 LATUDA 80 mg Tab tablet ONCE DAILY 30 0 10/01/2012 04/14/2015 lisinopril TAKE 1 TABLET 90 0 (PRINIVIL,ZESTRIL) 20 MG DAILY. tablet 10/01/2012 04/14/2015 magnesium oxide (MAG-OX) TAKE 1 TABLET 30 0 400 mg tablet DAILY. 10/01/2012 04/14/2015 multivitamin (THERAGRAN) TAKE 1 TABLET 30 0 per tablet DAILY. 10/01/2012 04/14/2015 NOVOLOG FLEXPEN 100 inject 9 9 0 unit/mL pen units q AC or as directed, sub-q 10/01/2012 04/14/2015 pantoprazole (PROTONIX) TAKE 1 TABLET 30 0 40 MG tablet DAILY. documented as of this encounter Plan of Treatment Not on filedocumented as of this encounter Procedures Comments Procedure Name Priority Date/Time Associated Diag nosis MICROALBUMIN RANDOM Routine 10/01/2012 4:07 PM TECHNICAL SME RENAL PANEL Routine 10/01/2012 4:07 PM TECHNICAL SME C PEPTIDE Routine 10/01/2012 4:07 PM TECHNICAL SME documented in this encounter Results * Renal Panel (10/01/2012 4:07 PM TECHNICAL SME) Sodium 141 133 - 147 MEQ/L [facility] Potassium 3.9 3.5 - 5.1 MEQ/L [facility] Chloride 100 96 - 112 MEQ/L [facility] Carbon Dioxide 31 (H) 20 - 30 MEQ/L [facility] Creatinine 0.7 0.6 - 1.3 MG/DL [facility] Blood Urea 12 7 - 26 MG/DL [facility] Nitrogen Glucose 135 (H) 70 - 100 MG/DL [facility] Anion Gap 11 5 - 17 [facility] Phosphorus 4.0 2.5 - 4.5 MG/DL [facility] Albumin 3.9 3.5 - 5.0 G/DL [facility] Calcium 9.2 8.4 - 10.2 MG/DL [facility] eGFR Male AA >130 [facility] Comment: Chronic Kidney Disease less than 60 mL/min/1.73 sq.m Kidney failure less than 15 mL/min/1.73 sq.m eGFR Male 124 [facility] Non-AA Comment: Chronic Kidney Disease less than 60 mL/min/1.73 sq.m Kidney failure less than 15 mL/min/1.73 sq.m Specimen Blood Performing Organization Address [facility] Ph one Number [id number] [place], [place] [address] [place] * Microalbumin Random (10/01/2012 4:07 PM TECHNICAL SME) Creatinine 377.7 MG/DL [facility] Urine Random Microalbumin/Cr 2.70 0.00 - 16.00 UG/MG [facility] eatinine Ratio Microalbumin 1.02 MG/DL [facility] mg/dl Specimen Urine Performing Organization Address [facility] Ph one Number [id number] [place], [place] [address] [place] * C Peptide (10/01/2012 4:07 PM TECHNICAL SME) C-Peptide ng/mL 11.3 (H) 1.1 - 4.4 NG/ML [facility] Comment: Test Performed by: [place] [address] Global Project Manager: Antonio Tong III, M.D. Specimen Blood Performing Organization Address [facility] Ph one Number [id number] [phone] [place], [place] [address] [place] documented in this encounter Visit Diagnoses Not on filedocumented in this encounter
--- OUTSIDE RECORDS SUMMARY | 2019-11-21 01:49 | XMS REPORT ---
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 Active 219853508 Problem Type 2 diabetes mellitus with unspecified complications E11.8 Active 03370477 Problem Type 1 diabetes mellitus with foot ulcer E10.621 Active 28611072009481 Problem Morbid (severe) obesity due to excess calories E66 .01 Active 446165673 Problem intermediate current use of insulin Z79.4 Active 086412383 Problem Systolic dysfunction I51.9 Active 486499073 Problem Skin ulcer of left foot, limited to breakdown of skin L97.521 Active 42789282 Problem Obesity, morbid, BMI 40.0-49.9 E66.01 Active 562266373 ALLERGIES No Information ENCOUNTERS Encounter Location Date Diagnosis [facility] [place] [address] [facility] [id number] [place] [address] Nov, [facility] [address] [facility] [id number] [place] [address] Nov, Type 1 diabetes mellitus wit h foot ulcer E10.621 ; Non- pressure chronic ulcer of left heel and midfoot with fat layer exposed L97.422 and Encounter for immunization Z23 [facility] [place] [address] [id number] [place] [address] Oct, 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 [place] [address] [place] [id number] [place] [address] 16 Sep, 2019 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 [place] [address] [address] 14 Sep, 2019 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 ; Essential hypertension I10 ; intermediate designer current use of insulin Z79.4 ; Skin ulcer of left foot, limited to breakdown of skin L97.521 ; Obesity, morbid, BMI 40.0-49.9 E66.01 ; Systolic dysfunction I51.9 and Cough R05 [facility] [place] [id number] [address] [place] [address] 08 Sep, 2019 Bronchitis J40 and Non-recur rent acute suppurative otitis media of left ear without spontaneous rupture of tympanic membrane H66.002 [facility] [place] [address] [place] [address] Aug, Bronchitis J40 ; Diarrhea, u nspecified R19.7 ; Nausea with vomiting, unspecified R11.2 and BMI 50.0-59.9, adult Z68.43 [place] [address] [address] Jun, [place] [address] [place] [id number] [place] [address] Apr, [place] [address] [place] [address] Mar, Benign essential hypertensio n I10 [place] [address] [place] [id number] [place] [address] Feb, [place] [address] [address] Feb, 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 ; Chest pain, unspecified type R07.9 ; Shortness of breath R06.02 ; Benign essential hypertension I10 ; Morbid (severe) obesity due to excess calories E66.01 ; intermediate current use of insulin Z79.4 ; Type 2 diabetes mellitus with unspecified complications E11.8 and BMI 50.0-59.9, adult Z68.43 [place] [address] [address] January, [facility] [place] [address] [address] January, [facility] [place] [address] [address] Nov, Type 2 diabetes mellitus with unspecifie d complications E11.8 [place] [address] [address] Oct, [place] [address] [address] Oct, [place] [address] [address] Oct, [place] [address] [address] Aug, [place] [address] [address] Aug, [place] [address] [address] Aug, 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 and intermediate current use of insulin Z79.4 [place] [address] [address] Jun, Gross hematuria R31.0 [facility] [place] [address] [address] Jun, Essential hypertension I10 [place] [address] [address] Jun, [facility] [place] [address] [address] Jun, [facility] [place] [address] [place] [address] [place] [address] May, [facility] [place] [address] [place] [address] [address] [place] [address] May, [facility] [place] [address] [address] May, 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 ; Essential hypertension I10 ; Yeast dermatitis of penis B37.49 ; Burning with urination R30.0 and Non-adherence to medical treatment Z91.19 [place] [address] [place] [id number] [place] [address] Apr, [facility] [place] [address] [address] Feb, [facility] [place] [address] [place] [address] [place] [address] Feb, [facility] [place] [address] [address] January, [facility] [place] [address] [address] January, [place] [address] [address] January, Onychomycosis B35.1 ; Callus of foot L84 and Type 2 diabetes mellitus with unspecified complications E11.8 [facility] [place] [address] [place] [address] [address] [place] [address] January, [facility] [place] [address] [address] January, [facility] [place] [address] [address] January, [facility] [place] [address] [address] January, [facility] [place] [address] [address] January, BMI 50.0-59.9, adult Z68.43 [facility] [place] [address] [address] January, [facility] [place] [address] [address] January, Acute respiratory distress R06.03 and Hy poxia R09.02 [facility] [place] [address] [address] January, [facility] [place] [address] [address] January, Shortness of breath on exertion R06.02 a nd BMI 50.0-59.9, adult Z68.43 [facility] [place] [address] [address] Dec, BMI 50.0-59.9, adult Z68.43 [facility] [place] [address] [place] [address] [address] [place] [address] Dec, [facility] [place] [address] [address] Dec, [facility] [place] [address] [address] Dec, [facility] [place] [address] [address] Nov, [facility] [place] [facility] [address] [address] Nov, [address] [address] Oct, intermediate current use of insulin Z79.4 ; Type 2 diabetes mellitus with other diabetic neurological complication E11.49 ; Swelling of both lower extremities M79.89 ; Essential hypertension I10 ; BMI 50.0-59.9, adult Z68.43 and Blurry vision H53.[address] [address] Sep, Right upper quadrant pain R10.11 and Blo od in stool K92.1 [facility] [place] [address] [address] Sep, Asymptomatic microscopic hem aturia R31.21 ; Glucose found in urine on examination R81 and BMI 50.0-59.9, adult Z68.[address] [address] Sep, Type 2 diabetes mellitus with unspecifie d complications E11.[address] [address] Aug, Type 2 diabetes mellitus wit h unspecified complications E11.8 ; Benign essential hypertension I10 ; Cough R05 ; Acute bronchitis, unspecified organism J20.9 ; Other viral agents as the cause of diseases classified elsewhere B97.89 and Morbid (severe) obesity due to excess calories E66.01 [facility] [place] [address] [address] May, Acute seasonal allergic rhin itis, unspecified trigger J30.2 and Candidiasis of penis B37.[address] [address] Dec, [address] [address] Dec, [address] [address] Oct, [facility] [address] [id number] [place] [address] Oct, [facility] [address] [id number] [place] [address] Dec, [facility] [address] [id number] [place] [address] Dec, [facility] [address] [id number] [place] [address] Dec, [facility] [address] [id number] [place] [address] Dec, [facility] [address] [id number] [place] [address] Dec, [facility] [address] [id number] [place] [address] Dec, [facility] [address] [id number] [place] [address] Nov, [facility] [address] [id number] [place] [address] Nov, [facility] [address] [id number] [place] [address] May, [facility] [address] [id number] [place] [address] May, [facility] [address] [id number] [place] [address] May, [facility] [address] [id number] [place] [address] 17 May, 2013 [facility] [address] [id number] [place] [address] 12 May, 2013 [facility] [address] [id number] [place] [address] Apr, [facility] [address] [id number] [place] [id number] Mar, [facility] [address] [id number] [place] [address] Mar, [facility] [address] [facility] [id number] [facility] [address] Mar, [facility] [address] [facility] [id number] [facility] [address] Mar, [facility] [address] [id number] [facility] [address] Feb, [facility] [address] [id number] [facility] [address] Feb, [facility] [address] [facility] [id number] [facility] [address] Feb, [facility] [address] [id number] [place] [address] Feb, [facility] [address] [id number] [place] [address] January, [facility] [address] [id number] [place] [address] January, [facility] [address] [id number] [place] [address] January, [facility] [address] [id number] [place] [address] January, [facility] [address] [id number] [place] [address] January, [facility] [address] [id number] [place] [address] January, [facility] [address] [id number] [place] [address] January, [facility] [address] [id number] [place] [address] January, [facility] [address] [id number] [place] [address] January, [facility] [address] [id number] [place] [address] Dec, [facility] [address] [id number] [place] [address] 18 Dec, 2012 [facility] [address] [id number] [place] [address] 17 Dec, 2012 [facility] [address] [id number] [place] [address] 16 Dec, 2012 [facility] [address] [id number] [place] [address] 16 Dec, 2012 [facility] [address] [id number] [place] [address] 11 Dec, 2012 [facility] [address] [id number] [place] [address] 02 Dec, 2012 [facility] [address] [id number] [place] [address] 26 Nov, 2012 [facility] [address] [id number] [place] [address] 21 Nov, 2012 [facility] [address] [id number] [place] [address] 14 Nov, 2012 [facility] [address] [id number] [place] [address] 28 Oct, 2012 [facility] [address] [id number] [place] [address] 13 Oct, 2012 [facility] [address] [id number] [place] [address] 05 Oct, 2012 [facility] [address] [id number] [place] [address] 05 Oct, 2012 [facility] [address] [id number] [place] [address] 16 Jul, 2010 [facility] [address] [id number] [place] [address] 14 Jun, 2010 [facility] [address] [id number] [place] [address] 12 Jun, 2010 [facility] [address] [id number] [place] [address] 13 May, 2010 IMMUNIZATIONS No Known Immunizations SOCIAL HISTORY Never Assessed REASON FOR VISIT PLAN OF CARE VITAL SIGNS MEDICATIONS Unknown Medications RESULTS No Results PROCEDURES No Known procedures INSTRUCTIONS MEDICATIONS ADMINISTERED No Known Medications MEDICAL (GENERAL) HISTORY Type Description Date Medical History bleeding ulcer Medical History type 2 diabetes Medical History stents in pancreas Medical History hypertension Medical History schizophrenia Surgical History bilateral knees...scopes Surgical History stent placed in pancreas Surgical History stent removed form pancreas Surgical History cholecystectomy Surgical History Heart Cath 2018 Hospitalization History post surgeries Hospitalization History [facility] [place]- Abd pain 09/24/2017
--- OUTSIDE RECORDS SUMMARY | 2019-11-21 01:49 | XMS REPORT | Clinical Summary ---
Author Author [facility] Organization [facility] Address Unknown Phone Unavailable Care Team Providers Care Wrapper Caser Name Role Phone PCP Unavailable Allergies Not on File Medications End Date Status Medication Sig Dispensed Refills Start Date Active oxyCODONE-acetaminophen Take by 60 0 (PERCOCET) 5-325 mg per mouth. 3 tablet Active Problems Problem Noted Date Uncontrolled type 2 diabetes mellitus with complicati on 10/01/2012 Essential hypertension 10/01/2012 Overview: ICD-10 conversion Schizophrenia, unspecified type 10/01/2012 Overview: ICD-10 conversion Esophageal reflux 10/01/2012 Chronic pancreatitis 10/01/2012 Osteoarthritis 10/01/2012 Overview: ICD-10 conversion Depression with anxiety 10/01/2012 Diabetic peripheral neuropathy 10/01/2012 Morbid obesity 10/01/2012 Family History Medical History Relation Name Comments Atrial fibrillation Brother Atrial Fibrillatio n; Coronary artery disease Brother Premature Card iovascular Disease; PCI in his early 40s Coronary artery disease Father Coronary Arter y Disease; had 4 vv CABG in his 60s Diabetes type II Maternal Type 2 Diabetes Gena litus; Grandmother Atrial fibrillation Mother Atrial Fibrillatio n; Relation Name Status Comments Brother Father Maternal Grandmother Mother Social History Date Tobacco Use Types Packs/Day Years Used Former Smoker Sex Assigned at Date Recorded Not on file Industry Job Start Date Occupation Not on file Not on file Not on file Travel End Travel History Travel Start No recent travel history available. Last Filed Vital Signs Reading Time Taken Comments Vital Sign 124/78 10/01/2012 1:50 PM [employer] Blood Pressure 72 10/01/2012 1:50 PM [employer] ENG[employer] HEL[employer] Pulse - - Temperature - - Respiratory Rate - - Oxygen Saturation - - Inhaled Oxygen Concentration 153.5 kg (338 lb 8 oz) 10/01/2012 1:50 PM [employer] Weight 175.3 cm (5' 9") 10/01/2012 1:50 PM HE[employer] ENGINE[employer] HEL[employer] Height 49.99 10/01/2012 1:50 PM HE[employer] ENG[employer] HEL[employer] Body Mass Index Plan of Treatment Health Maintenance Due Date Last Done Comments Td # 1970 Influenza Vaccine (#1) 2019 Results Not on filefrom Last 3 Months
--- OUTSIDE RECORDS SUMMARY | 2019-11-21 01:49 | XMS REPORT | Encounter Summary ---
Author Author [facility] Address Unknown Phone Unavailable Care Team Providers Care Papier Mache Molder Name Role Phone PCP Unavailable Encounter Details Care Team Description Date Type Department ProviderSusan MD [address] [place] [address] 10/07/2012 Hist-Transcript [facility] Family Medicine ion Encounter [address] [place] [address] Social History Date Tobacco Use Types Packs/Day Years Used Never Assessed Sex Assigned at Date Recorded Not on file Industry Job Start Date Occupation Not on file Not on file Not on file Travel End Travel History Travel Start No recent travel history available. documented as of this encounter Progress Notes * ProviderSusan MD - 10/07/2012 2:53 PM ACCOUNTS PAYABLE SPECIALIST Date: 01 Oct 2012 2:53 PM ACCOUNTS PAYABLE SPECIALIST, Recorded By: Daniela Palmer Calling For: ANTWAN ATWOOD Patient was educated on the use of Novolog pens, the mechanism of action of fast -acting insulin, and the recognition and treatment of hypoglycemia. Electronically signed by:Daniela Palmer Oct 07 2012 2:54PM ACCOUNTS PAYABLE SPECIALIST Author documented in this encounter Plan of Treatment Not on filedocumented as of this encounter Visit Diagnoses Not on filedocumented in this encounter
--- OUTSIDE RECORDS SUMMARY | 2019-11-21 01:49 | XMS REPORT | Encounter Summary ---
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 Routine 02/03/2006 SCROTUM OR RETROPERIT 8:22 AM CDT ORGANS COMPLETE MRI MRCP ONLY WO CONTRAST Routine 02/03/2006 8:15 AM CDT DIFFERENTIAL Routine 02/03/2006 3:39 AM CDT MAGNESIUM Routine 02/03/2006 3:39 AM CDT CBC AND DIFF (MANUAL DIFF Routine 02/03/2006 IF NECESSARY) 3:39 AM CDT BASIC METABOLIC PANEL Routine 02/03/2006 3:39 AM CDT CELIAC DISEASE PANEL Routine 02/02/2006 5:18 PM CDT THYROID STIMULATING Routine 02/02/2006 HORMONE 5:18 PM CDT IRON/TRANSFERRIN Routine 02/02/2006 5:18 PM CDT FERRITIN Routine 02/02/2006 5:18 PM CDT THYROID STIMULATING Routine 02/02/2006 HORMONE 4:10 AM CDT LIPID PANEL Routine 02/02/2006 4:10 AM CDT LIPASE Routine 02/02/2006 4:10 AM CDT COMPREHENSIVE METABOLIC Routine 02/02/2006 PANEL 4:10 AM CDT COMPLETE BLOOD COUNT Routine 02/02/2006 4:10 AM CDT AMYLASE Routine 02/02/2006 4:10 AM CDT ALDOSTERONE Routine 02/02/2006 4:10 AM CDT MRI LUMBAR SPINE WO Routine 02/01/2006 CONTRAST 9:30 PM CDT documented in this encounter Results * FL UGI w Small Bowel (02/04/2006 10:30 AM CDT) Specimen Narrative Performed At [facility] ANAM Name: SUSSY COKER D Date of : 1970 Sex: M Check-in #: [id number] Katrin#/Jacket#: [id number] Room/Bed/Location: [facility] [address] [place] [address] Record #: [id number] Attending Physician: [id number] UPTON Admitting Diagnosis: NAUSEA/VOMITING Procedure Requested: [id number] DX UGI W SM BOWEL L Reason For Exam: NAUSEA/VOMITING Requested By: ALE ayala Ordered: 02/04/2006 1511 Exam Date/Time: 02/04/2006 1500 Ch natividad-in Date/Time: 02/04/2006 1510 These images and this report have been reviewed and edited by the Staff Radiologist. Upper GI with small bowel follow-throug h Indication: Abdominal pain Feb 04 2006 at 1030 hours Discussion: Information Management Specialist radiographs demonstra te moderate amount of stool within the colon. Clips are seen overly ing the region of the gallbladder. Bony structures are intact . Thick and thin barium was administered orally. The esophagus demonstrates normal contour without shana dence of stricture or narrowing. Gastric mucosa is within normal limits. No evidence of obstruction is seen. There no abnormality identified. Small bowel demonstrates normal to slow transition of contrast. Normal mucosal folds are seen. 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 Normal t erminal ileum is identified. Impression: 1. Unremarkable upper GI and small sallie l follow-through. Steelscope Operator- WESLEY ROSALES M.D., Staff Radiologist Dictated By- ISMAEL DIEGO M.D., Resid ent Staff Physician- Mirela BARBOUR M.D. Radiologist Authenticated By- WESLEY ROSALES M.D., Staff Radiologist Released Date Time- 02/04/065 Procedure Note Interface, Rad Conversion - 11/10/2013 3:17 AM DAIRY FROZEN MANAGER REPORT Name: SUSSY COKER D Date of : 1970 Sex: M Check-in #: [id number] Katrin#/Jacket#: [id number] Room/Bed/Location: 9 9439 01 Attending Physician: [id number] UPTON Admitting Diagnosis: NAUSEA/VOMITING Procedure Requested: [id number] DX UGI W SM BOWEL L Reason For Exam: NAUSEA/VOMITING Requested By: ALE UPTON MD Exam Ordered: 02/04/2006 1511 Exam Date/Time: 02/04/2006 1500 Check-in Date/Time: 02/04/2006 1510 These images and this report have been reviewed and edited by the Staff Radiologist. Upper GI with small bowel follow-through Indication: Abdominal pain Feb 04 2006 at 1030 hours Discussion: Information Management Specialist radiographs demonstrate moderate amount of stool within the colon. Clips are seen overlying the region of the gallbladder. Bony structures are intact. Thick and thin barium was administered orally. The esophagus demonstrates normal contour without evidence of stricture or narrowing. Gastric mucosa is within normal limits. No evidence of obstruction is seen. There no abnormality identified. Small bowel demonstrates normal to slow transition of contrast. Normal mucosal folds are seen. 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 Normal terminal ileum is identified. Impression: 1. Unremarkable upper GI and small bowel follow-through. Steelscope Operator- WESLEY ROSALES M.D., Staff Radiologist Dictated By- ISMAEL DIEGO M.D., Resident Staff Physician- WESLEY ROSALES M.D., Staff Radiologist Authenticated By- WESLEY ROSALES M.D., Staff Radiologist Released Date Time- 02/04/06 2205 Performing Organization Address [facility] one Number [facility] * Erythrocyte Sedimentation Rate (02/04/2006 3:55 AM CDT) Sed Rate 28 (H) 0 - 12 MM/HR [facility] Specimen Performing Organization Address [facility] one Number [facility] [id number] [phone] [place] * Celiac Disease Panel (02/04/2006 3:55 AM CDT) Only the most recent of 2 results within the time period is included. Gliadin IgA 6.1 EU [place] Antibody Comment: -- EXPECTED VALUES -- <=25.0 Gliadin IgG <1.0 EU [place] Antibody Comment: -- EXPECTED VALUES -- <=25.0 TISSUE 6.0 0.0 - 30.0 U [place] TRANSGLUTAMINAS E IGA Specimen Performing Organization Address [facility] one Number [facility] [id number] [phone] [place] * US Duplex Abdomen Pelvis Scrotum or Retroperit organs complete (02/03/2006 8:22 AM CDT) Specimen Narrative Performed At [facility] Name: SUSSY COKER D Date of : 1970 Sex: M Check-in #: [id number] Katrin[facility]Jacket[facility] [id number] [id number] Room/Bed/Location: [address] Record #: [id number] Attending Physician: [id number] ALE UPTON Admitting Diagnosis: HYPERTENSION Procedure Requested: US DUPLEX RE NAL ARTERIAL COMPLETE L Reason For Exam: HYPERTENSION Requested By: ALE Thomas xam Ordered: 02/03/2006906 Exam Date/Time: 02/03/2006906 Ch natividad-in Date/Time: 02/03/2006537 These images and this report have been reviewed and edited by the Staff Radiologist. Bilateral Renal arterial Doppler duplex ultrasound Date: 02/03/2006 Provided Clinical History: Hypertension Technique: Grayscale and color Doppler duplex ultr asound of bilateral kidneys. This study is limited by the patient's body habitus. Findings: The midline structures, including the a archana, are obscured by overlying bowel gas. The kidneys do not demonstra te hydronephrosis. The right kidney measures approximately 10.5 x 5. 6 cm\\E:E\\ the left kidney measures approximately 11.3 x 6.5 cm. The renal arteries are not evaluated. The right renal resistive indices range fro m approximately 0.69 to 0.75. The left renal resistive indices range from approximately 0.61 to 0.69. Impression: Limited study. Steelscope Operator- WESLEY ROSALES M.D., Staff Radiologist Dictated ByNaeem PIPER M.D. Staff Physician- Mirela BARBOUR M.D. Radiologist Authenticated By- WESLEY ROSALES M.D., Staff Radiologist Released Date Time- 02/03/06 1458 Procedure Note Interface, Rad Conversion - 11/10/2013 3:17 AM DAIRY FROZEN MANAGER REPORT Name: SUSSY COKERToño Date of : 1970 Sex: M Check-in #: [id number] Katrin#/Jacket#: [id number] Room/Bed/Location: [facility] 9439 01 Attending Physician: [id number] ALE UPTON Admitting Diagnosis: HYPERTENSION Procedure Requested: US DUPLEX RENAL ARTERIAL COMPLETE L Reason For Exam: HYPERTENSION Requested By: ALE UPTON MD Exam Ordered: 02/03/2006906 Exam Date/Time: 02/03/2006906 Check-in Date/Time: 02/03/2006537 These images and this report have been reviewed and edited by the Staff Radiologist. Bilateral Renal arterial Doppler duplex ultrasound Date: 02/03/2006 Provided Clinical History: Hypertension Technique: Grayscale and color Doppler duplex ultrasound of bilateral kidneys. This study is limited by the patient's body habitus. Findings: The midline structures, including the aorta, are obscured by overlying bowel gas. The kidneys do not demonstrate hydronephrosis. The right kidney measures approximately 10.5 x 5.6 cm\\E:E\\ the left kidney measures approximately 11.3 x 6.5 cm. The renal arteries are not evaluated. The right renal resistive indices range from approximately 0.69 to 0.75. The left renal resistive indices range from approximately 0.61 to 0.69. Impression: Limited study. Steelscope Operator- WESLEY ROSALES M.D., Staff Radiologist Dictated ByKentrell MARSHALL M.D., Resident Staff Physician- WESLEY ROSALES M.D., Staff Radiologist Authenticated By- WESLEY ROSALES M.D., Staff Radiologist Released Date Time- 02/03/06 1458 Performing Organization Address City/State/Zipcode Ph one Number ANAM * MRI MRCP only wo contrast (02/03/2006 8:15 AM CDT) Specimen Narrative Performed At REPORT [facility] Name: YAJAIRASUSSY D Date of : 1970 Sex: M Check-in #: [id number] Katrin#/Jacket#: [id number] Room/Bed/Location: [facility] 9439 01 [facility] Record #: [id number] Attending Physician: [id number] ALE UPTON Admitting Diagnosis: PAIN RUQ Procedure Requested: [id number] MRI MRCP L Reason For Exam: PAIN RUQ Requested By: ALE ayala Ordered: 02/03/2006 0840 Exam Date/Time: 02/03/2006 0845 Ch natividad-in Date/Time: 02/03/2006 0818 These images and this report have been reviewed and edited by the Staff Radiologist. MRCP Date: 02/03/2006 Provided Clinical History: Right upper quadrant pain Technique: Routine multiplanar, multisequence imag es were obtained including axial T1 and T2-weighted sequences. 3-D image s of the biliary system were reconstructed. Coronal source images we re also reviewed. Findings: The visualized portions of the liver, s pleen, pancreas, IVC, aorta and kidneys are within normal limits. The g allbladder is is not seen. There is no abnormal biliary dilatation. Th ere are no abnormal filling defects within the biliary system. Impression: Within normal limits MRCP. Steelscope Operator- WESLEY ROSALES M.D., Staff Radiologist Dictated ByKentrell MARSHALL M.D., Brucen t Staff Physician- Mirela BARBOUR M.D. taff Radiologist Authenticated By- WESLEY ROSALES M.D., Staff Radiologist Released Date Time- 02/03/06 1458 Procedure Note Interface, Rad Conversion - 11/10/2013 3:17 AM DAIRY FROZEN MANAGER REPORT Name: SUSSY COKER D Date of : 1970 Sex: M Check-in #: [id number] Katrin#/Jacket#: [id number] Room/Bed/Location: [facility] 9439 01 Attending Physician: [id number] ALE UPTON Admitting Diagnosis: PAIN RUQ Procedure Requested: [id number] MRI MRCP L Reason For Exam: PAIN RUQ Requested By: ALE UPTON MD Exam Ordered: 02/03/2006 0840 Exam Date/Time: 02/03/2006 0845 Check-in Date/Time: 02/03/2006 0818 These images and this report have been reviewed and edited by the Staff Radiologist. MRCP Date: 02/03/2006 Provided Clinical History: Right upper quadrant pain Technique: Routine multiplanar, multisequence images were obtained including axial T1 and T2-weighted sequences. 3-D images of the biliary system were reconstructed. Coronal source images were also reviewed. Findings: The visualized portions of the liver, spleen, pancreas, IVC, aorta and kidneys are within normal limits. The gallbladder is is not seen. There is no abnormal biliary dilatation. There are no abnormal filling defects within the biliary system. Impression: Within normal limits MRCP. Steelscope Operator- WESLEY ROSALES M.D., Staff Radiologist Dictated ByKentrell MARSHALL M.D., Resident Staff Physician- WESLEY ROSALES M.D., Staff Radiologist Authenticated By- WESLEY ROSALES M.D., Staff Radiologist Released Date Time- 02/03/06 1458 Performing Organization Address City/State/[place] Ph one Number [place] * DIFFERENTIAL (02/03/2006 3:39 AM CDT) % Neutrophils 56 45 - 78 % [place] %Lymphocytes 32 15 - 47 % [place] %Monocytes 7 0 - 12 % [place] %Eosinophils 4 0 - 7 % [place] %Basophils 0 0 - 2 % [place] # Granulocytes 4.1 1.7 - 6.8 TH/UL [place] # Lymphocytes 2.3 1.0 - 3.3 TH/UL [place] # Monocytes 0.5 0.2 - 0.9 TH/UL [place] # Eosinophils 0.3 0.0 - 0.4 TH/UL [place] # Basophils 0.0 0.0 - 0.2 TH/UL [place] Specimen Performing Organization Address [facility] one Number [id number] [phone] [place] * CBC and Diff (manual diff if necessary) (02/03/2006 3:39 AM CDT) WBC 7.3 4.0 - 11.0 TH/UL [place] RBC 4.25 (L) 4.31 - 5.84 MIL/UL [place] Hemoglobin 12.3 (L) 13.0 - 17.0 G/DL [place] Hematocrit 38 (L) 40 - 50 % [place] MCV 89 80 - 99 FL [place] MCH 29 27 - 34 PG [place] MCHC 33 32 - 36 % [place] RDW 13.2 <14.5 % [place] Platelet Count 240 140 - 400 TH/UL [place]QUEST Specimen Performing Organization [facility] one Number [facility] [id number] [phone] [place] * Basic Metabolic Panel (02/03/2006 3:39 AM CDT) Sodium 141 134 - 144 MEQ/L [place] Potassium 4.4 3.6 - 5.0 MEQ/L [place] Chloride 104 98 - 107 MEQ/L [place] Carbon Dioxide 27 23 - 32 MEQ/L [place] Anion Gap 10 3 - 15 [place] Creatinine 0.9 0.5 - 1.5 MG/DL [place] Blood Urea 14 5 - 20 MG/DL [place] Nitrogen Glucose 105 (H) 65 - 100 MG/DL [place] Calcium 8.6 (L) 8.8 - 10.5 MG/DL [place] Specimen Performing Organization Address [facility] one Number [facility] [id number] [phone] [place] * Magnesium (02/03/2006 3:39 AM CDT) Magnesium 1.7 1.4 - 2.0 MEQ/L [place] Specimen Performing Organization [facility] one Number [id number] [phone] [place] * Ferritin (02/02/2006 5:18 PM CDT) Ferritin 358 (H) 20 - 300 NG/ML [place] Specimen Performing Organization Address [facility] one Number [facility] [id number] [phone] [place] * Thyroid Stimulating Hormone (02/02/2006 5:18 PM CDT) Only the most recent of 2 results within the time period is included. Thyroid 4.00 0.45 - 4.50 UIU/ML [place] Stimulating Hormone Specimen Performing Organization [facility] one Number [id number] [phone] [place] * Iron/Transferrin (02/02/2006 5:18 PM CDT) Transferrin 182 170 - 340 MG/DL [place] Iron 50 50 - 150 UG/DL [place] Iron/Transferri 23 15 - 50 % [place]QUEST n % Saturation Total 218 204 - 408 UG/DL [place]QUEST Iron-Binding Capacity Specimen Performing [facility] one Number [facility] [id number] [phone] [place] * Complete Blood Count (02/02/2006 4:10 AM CDT) WBC 6.2 4.0 - 11.0 TH/UL [place] RBC 4.16 (L) 4.31 - 5.84 MIL/UL [place] Hemoglobin 12.2 (L) 13.0 - 17.0 G/DL [place] Hematocrit 38 (L) 40 - 50 % SUN[place] MCV 91 80 - 99 FL SUNQUEST MCH 29 27 - 34 PG SUNQUEST MCHC 32 32 - 36 % SUNQUEST RDW 13.1 <14.5 % [place] Platelet Count 226 140 - 400 TH/UL SUNQUEST Specimen Performing Organization [facility] one Number [facility] [id number] [phone] [place] * Comprehensive Metabolic Panel (02/02/2006 4:10 AM CDT) Albumin 3.6 3.6 - 4.7 G/DL [place] Aspartate 34 20 - 50 IU/L SUNQUEST Aminotransferas e Bilirubin Total 0.3 0.0 - 1.1 MG/DL [place] Protein Total 6.7 6.5 - 8.2 G/DL [place] Serum Calcium 8.8 8.8 - 10.5 MG/DL [place]QUEST Creatinine 0.8 0.5 - 1.5 MG/DL [place] Glucose 112 (H) 65 - 100 MG/DL [place] Alkaline 81 40 - 125 IU/L SUNQUEST Phosphatase Sodium 139 134 - 144 MEQ/L [place]QUEST Potassium 3.3 (L) 3.6 - 5.0 MEQ/L [place] Chloride 101 98 - 107 MEQ/L [place] Carbon Dioxide 28 23 - 32 MEQ/L SUNQUEST Blood Urea 13 5 - 20 MG/DL SUNQUEST Nitrogen Anion Gap 10 3 - 15 SUNQUEST Alanine 54 20 - 60 IU/L SUNQUEST Aminotransferas e Specimen Performing Organization Address [facility] one Number [facility] [id number] [phone] [place] * Amylase (02/02/2006 4:10 AM CDT) Amylase <30 (A) 30 - 100 IU/L SUNQUEST Specimen Performing Organization Address [facility] one Number [facility] [id number] [phone] [place] * Lipase (02/02/2006 4:10 AM CDT) Lipase 50 40 - 300 U/L SUNQUEST Comment: Lipase levels up to 500 U/L may occur in hospitalized patients without acute pancreatitis. Pancreatitis is usually associated with levels between 600 and 1500 U/L. Specimen Performing Organization Address [facility] one Number [id number] [phone] [place] * Lipid Panel (02/02/2006 4:10 AM CDT) Cholesterol 121 <200 MG/DL [facility] Triglycerides 215 (H) <150 MG/DL [facility] HDL Cholesterol 24 (L) >41 MG/DL [facility] LDL Cholesterol 54 0 - 99 MG/DL [facility] Cholesterol/HDL 5.0 (H) <4.5 SUNQUEST Ratio LDL NOT REPORTED SUNQUEST INTERPRETATION Hours 10 HRS SUNQUEST Postprandial Specimen Performing Organization [facility] one Number [facility] [id number] [phone] [place] * Aldosterone (02/02/2006 4:10 AM CDT) Aldosterone 4.7 1.0 - 21.0 NG/DL [place]QUEST Comment: This test was developed and its performance characteristics determined by [employer]. It has not been cleared or approved by the [place] Food and Drug Administration. Specimen Performing Organization Address City/State/Zipcode Ph one Number [facility] [address] [place], [place] [address] [place] * MRI Lumbar Spine wo contrast (02/01/2006 9:30 PM CDT) Specimen Narrative Performed At [facility] ANAM Name: SUSSY COKER D Date of : 1970 Sex: M Check-in #: [id number] Katrin#/Jacket#: [id number] Room/Bed/Location: [facility] [address] [place] [address] Record #: [id number] Attending Physician: [id number] ALE UPTON Admitting Diagnosis: PAIN LOWER BACK Procedure Requested: [id number] MRI L SPINE WO CONTRAST L Reason For Exam: PAIN LOWER BACK Requested By: ALE ayala Ordered: 02/01/20062143 Exam Date/Time: 02/01/20062149 Ch natividad-in Date/Time: 02/01/20062114 These images and this report have been reviewed and edited by the Staff Radiologist. MRI lumbar spine without contrast Indication: Back pain Date: 02/01/2006 at 21:28 hours Technique: Multiplanar, multiple sequen ce images of the lumbar spine were obtained and examined without IV c ontrast. Findings: This examination is limited s econdary to body habitus and the use of body coil. The conus medullaris is in normal position. Visualized spinal cord is homogeneous in signal in tensity. Vertebral bodies maintain normal height and alignment wi th normal signal. Note is made of the T12 vertebral body which demonstrat es superior and inferior endplate signal changes consistent with Type II Modic degeneration. No disc herniation is present. No significant central canal stenosis or neuroforaminal narrowing is present. Impression: 1. Limited examination secondary to bod y habitus and use of body coil. 2. Mild degenerative joint disease. No significant central canal stenosis identified. Steelscope Operator- EVIN Souza, Staff Radiologist Dictated By- ISMAEL DIEGO M.D., Resid ent Staff Physician- EVIN Raymundo, Staff Radiologist Authenticated By- EVIN Souza, Staff Radiologist Released Date Time- 02/02/06 1405 Procedure Note Interface, Rad Conversion - 11/10/2013 3:17 AM DAIRY FROZEN MANAGER REPORT Name: SUSSY COKER D Date of : 1970 Sex: M Check-in #: [id number] Katrin#/Jacket#: [id number] Room/Bed/Location: [facility] 9439 01 Attending Physician: [id number] ALE UPTON Admitting Diagnosis: PAIN LOWER BACK Procedure Requested: [id number] MRI L SPINE WO CONTRAST L Reason For Exam: PAIN LOWER BACK Requested By: ALE UPTON MD Exam Ordered: 02/01/20062143 Exam Date/Time: 02/01/20062149 Check-in Date/Time: 02/01/20062114 These images and this report have been reviewed and edited by the Staff Radiologist. MRI lumbar spine without contrast Indication: Back pain Date: 02/01/2006 at 21:28 hours Technique: Multiplanar, multiple sequence images of the lumbar spine were obtained and examined without IV contrast. Findings: This examination is limited secondary to body habitus and the use of body coil. The conus medullaris is in normal position. Visualized spinal cord is homogeneous in signal intensity. Vertebral bodies maintain normal height and alignment with normal signal. Note is made of the T12 vertebral body which demonstrates superior and inferior endplate signal changes consistent with Type II Modic degeneration. No disc herniation is present. No significant central canal stenosis or neuroforaminal narrowing is present. Impression: 1. Limited examination secondary to body habitus and use of body coil. 2. Mild degenerative joint disease. No s ignificant central canal stenosis identified. Steelscope Operator- EVIN LEIJA M.D., Staff Radiologist Dictated By- ISMAEL DIEGO M.D., Resident Staff Physician- EVIN LEIJA M.D., Staff Radiologist Authenticated By- EVIN LEIJA M.D., Staff Radiologist Released Date Time- 02/02/06 1405 Performing Organization Address City/State/[facility] Ph one Number ANAM documented in this encounter Visit Diagnoses Diagnosis Backache, unspecified documented in this encounter
--- OUTSIDE RECORDS SUMMARY | 2019-11-21 01:49 | XMS REPORT | Encounter Summary ---
Author Author [facility] Address Unknown Phone Unavailable Care Team Providers Care Quality Review Trainer Name Role Phone PCP Unavailable Encounter Details Care Team Description Date Type Department Antwan Atwood MD 4321 [facility] [address] [place] [address] [phone] 10/14/2012 Allscripts Note [facility] - [place] [address] [address] Social History Date Tobacco Use Types Packs/Day Years Used Never Assessed Sex Assigned at Date Recorded Not on file Industry Job Start Date Occupation Not on file Not on file Not on file Travel End Travel History Travel Start No recent travel history available. 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 Verified Results Collected/Examined: Oct 01, 2012 4:07PM Test Result Flag Acceptable Renal Panel Potassium 3.9 MEQ/L 3.5-5.1 Chloride 100 MEQ/L 96-112 Carbon Dioxide 31 MEQ/L H 20-30 Glucose 135 mg/dL H 70-100 Anion Gap 11 5-17 Calcium 9.2 mg/dL 8.4-10.2 Creatinine 0.7 mg/dL 0.6-1.3 Blood Urea Nitrogen 12 mg/dL 7-26 Phosphorus 4.0 mg/dL 2.5-4.5 Albumin 3.9 g/dL 3.5-5.0 Gfrm Aa >130 Chronic Kidney Disease less than 60 mL/min/1.73 sq.m^^ Kidney failure less than 15 mL/min/1.73 sq.m^^ Gfrm Non Aa 124 Chronic Kidney Disease less than 60 mL/min/1.73 sq.m^^ Kidney failure less than 15 mL/min/1.73 sq.m^^ Sodium 141 MEQ/L 133-147 Microalbumin Urine Manish Microalbumin Mg/L 1.02 mg/dL Creatinine, Urine Random Quant 377.7 mg/dL Microalbumin/Creatinine Ratio 2.70 ug/mg 0.00-16.00 C Peptide 11.3 ng/mL H 1.1 - 4.4 Test Performed by:^^ [facility] [address]^^ [address] [place] [address]^^ Wringer Operator: Antonio Tong III, M.D.^^ Discussion/Summary Walter, your urine test was negative for microalbumin, which shows that your kidn eys have not suffered any damage from diabetes. Also, your C-peptide was elevat ed, which means that you are not insulin deficient. Please continue the recomme ndations made at your appointment and call us at [phone] if you have any qu estions. KWAME Raza N II FARMWORKER * Miscellaneous - Antwan Atwood MD - 10/14/2012 3:14 PM GRAIN II FARMWORKER Verified Results Collected/Examined: Oct 01, 2012 4:07PM Test Result Flag Acceptable Renal Panel [Oct 14, 2012 3:14PM ANTWAN ATWOOD] Ur MAB:Cr ratio is normal, so no evidence for nephropathy. C-peptide is elevated , so no insulin deficiency. Electrolytes are normal, except minimally elevated C O2. Nonfasting glucose is reasonable. Renal fxn is normal. Continue recs made at appt. Potassium 3.9 MEQ/L 3.5-5.1 Chloride 100 MEQ/L 96-112 Carbon Dioxide 31 MEQ/L H 20-30 Glucose 135 mg/dL H 70-100 Anion Gap 11 5-17 Calcium 9.2 mg/dL 8.4-10.2 Creatinine 0.7 mg/dL 0.6-1.3 Blood Urea Nitrogen 12 mg/dL 7-26 Phosphorus 4.0 mg/dL 2.5-4.5 Albumin 3.9 g/dL 3.5-5.0 Gfrm Aa >130 Chronic Kidney Disease less than 60 mL/min/1.73 sq.m^^ Kidney failure less than 15 mL/min/1.73 sq.m^^ Gfrm Non Aa 124 Chronic Kidney Disease less than 60 mL/min/1.73 sq.m^^ Kidney failure less than 15 mL/min/1.73 sq.m^^ Sodium 141 MEQ/L 133-147 Microalbumin Urine Manish [Oct 14, 2012 3:14PM ANTWAN ATWOOD] Ur MAB:Cr ratio is normal, so no evidence for nephropathy. C-peptide is elevated , so no insulin deficiency. Electrolytes are normal, except minimally elevated C O2. Nonfasting glucose is reasonable. Renal fxn is normal. Continue recs made at appt. Microalbumin Mg/L 1.02 mg/dL Creatinine, Urine Random Quant 377.7 mg/dL Microalbumin/Creatinine Ratio 2.70 ug/mg 0.00-16.00 C Peptide [Oct 14, 2012 3:14PM ANTWAN ATWOOD] Ur MAB:Cr ratio is normal, so no evidence for nephropathy. C-peptide is elevated , so no insulin deficiency. Electrolytes are normal, except minimally elevated C O2. Nonfasting glucose is reasonable. Renal fxn is normal. Continue recs made at appt. C Peptide 11.3 ng/mL H 1.1 - 4.4 Test Performed by:^^ [facility]^^ [address] [place] [address]^^ Wringer Operator: Antonio Tong III, M.D.^^ Discussion/Summary Walter, your urine test was negative for microalbumin, which shows that your kidn eys have not suffered any damage from diabetes. Also, your C-peptide was elevat ed, which means that you are not insulin deficient. Please continue the recomme ndations made at your appointment and call us at [phone] if you have any qu estions. KWAME Raza N II FARMWORKER documented in this encounter Plan of Treatment Not on filedocumented as of this encounter Visit Diagnoses Not on filedocumented in this encounter
--- OUTSIDE RECORDS SUMMARY | 2019-11-21 01:49 | XMS REPORT | Encounter Summary ---
Author Author [facility] Organization [facility] Address Unknown Phone Unavailable Care Team Providers Care Social Media Marketing Specialist Name Role Phone PCP Unavailable Encounter Details Care Team Description Date Type Department Sergey Hdz MD 4321 [facility] [address] [place] [address] [phone] 06/14/2012 Hist-Other [facility] - [place] [address] [address] Social History Date Tobacco Use Types Packs/Day Years Used Never Assessed Sex Assigned at Date Recorded Not on file Industry Job Start Date Occupation Not on file Not on file Not on file Travel End Travel History Travel Start No recent travel history available. documented as of this encounter Plan of Treatment Not on filedocumented as of this encounter Procedures Comments Procedure Name Priority Date/Time Associated Diag nosis LIPID PANEL Routine 06/14/2012 8:59 AM CDT HEMOGLOBIN A1C Routine 06/14/2012 8:59 AM CDT documented in this encounter Results * Hemoglobin A1C (06/14/2012 8:59 AM CDT) Hemoglobin A1C 8.3 (H) 0 OFFICE ENTERED Specimen Performing Organization Address [facility] Ph one Number OFFICE ENTERED * Lipid Panel (06/14/2012 8:59 AM CDT) Cholesterol 125 (L) 0 OFFICE ENTERED Triglycerides 57 0 OFFICE ENTERED HDL Cholesterol 41 0 OFFICE ENTERED LDL Cholesterol 73 0 OFFICE ENTERED Specimen Performing Organization Address [facility] Ph one Number OFFICE ENTERED documented in this encounter Visit Diagnoses Not on filedocumented in this encounter
--- OUTSIDE RECORDS SUMMARY | 2019-11-21 01:49 | XMS REPORT ---
Author Author Walter CASTILLO Y Organization [facility] Address [address] [place] [address] Care Team Providers Care Unit Secretary Name Role Phone GUY CASTILLO Unavailable PROBLEMS Type Condition ICD9-CM Code [id number] Code Onset Dates Condition S tatus SNOMED Code Problem Morbid (severe) obesity due to excess calories E66 .01 Active 124554049 Problem assisted current use of insulin Z79.4 Active 892623417 Problem Type 2 diabetes mellitus with unspecified complications E11.8 Active 73372096 Problem Skin ulcer of left foot, limited to breakdown of skin L97.521 Active 67914687 Problem Benign essential hypertension I10 Active 3237018 Problem Obesity, morbid, BMI 40.0-49.9 E66.01 Active 730652304 Problem 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 Active 31954712 Problem BMI 50.0-59.9, adult Z68.43 Active 824591196 Problem Essential hypertension I10 Active 65030057 Problem Systolic dysfunction I51.9 Active 131931477 ALLERGIES No Information ENCOUNTERS Encounter Location Date Diagnosis [facility] [address] [facility] [place] [address] 16 Sep, 2019 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 [facility] [address] [facility] [place] [address] 14 Sep, 2019 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 ; Essential hypertension I10 ; assisted current use of insulin Z79.4 ; Skin ulcer of left foot, limited to breakdown of skin L97.521 ; Obesity, morbid, BMI 40.0-49.9 E66.01 ; Systolic dysfunction I51.9 and Cough R05 [facility] [address] [facility] [id number] [address] [address] Sep, Bronchitis J40 and Non-recur rent acute suppurative otitis media of left ear without spontaneous rupture of tympanic membrane H66.002 [facility] [address] [facility] [id number] [place] [address] Aug, Bronchitis J40 ; Diarrhea, u nspecified R19.7 ; Nausea with vomiting, unspecified R11.2 and BMI 50.0-59.9, adult Z68.43 [facility] [address] [address] Jun, [place] [address] [address] Apr, [address] [place] [address] Mar, Benign essential hypertensio n I10 [place] [address] [address] Feb, [place] [address] [address] Feb, 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 ; Chest pain, unspecified type R07.9 ; Shortness of breath R06.02 ; Benign essential hypertension I10 ; Morbid (severe) obesity due to excess calories E66.01 ; 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 ; Type 2 diabetes mellitus with unspecified complications E11.8 and BMI 50.0-59.9, adult Z68.43 [facility] [address] [place] [id number] [place] [address] January, [place] [address] [address] January, [place] [address] [address] Nov, Type 2 diabetes mellitus with unspecifie d complications E11.8 [place] [address] [address] Oct, [facility] [address] [place] [id number] [place] [address] Oct, [facility] [address] [address] Oct, [facility] [address] [place] [address] [place] [address] Aug, [facility] [address] [address] Aug, [facility] [address] [address] Aug, 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 and 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 [facility] [address] [place] [address] [place] [address] Jun, Gross hematuria R31.0 [place] [address] [address] 15 Jun, 2018 Essential hypertension I10 [facility] [address] [address] 04 Jun, 2018 [facility] [address] [address] Jun, [facility] [address] [address] May, [place] [address] [address] May, [facility] [address] [address] May, 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 [facility] [address] [place] [address] [place] [address] 14 May, 2018 [facility] [address] [address] Apr, [facility] [address] [address] Apr, [place] [address] [place] [address] [facility] [place] [address] Apr, [facility] [address] [address] Apr, 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 ; Essential hypertension I10 ; Yeast dermatitis of penis B37.49 ; Burning with urination R30.0 and Non-adherence to medical treatment Z91.19 [place] [address] [address] Apr, [place] [address] [address] Feb, [place] [address] [address] Feb, [place] [address] [address] January, [place] [address] [address] January, [place] [address] [address] January, Onychomycosis B35.1 ; Callus of foot L84 and Type 2 diabetes mellitus with unspecified complications E11.8 [place] [address] [address] January, [facility] [address] [address] January, [facility] [address] [address] January, [place] [address] [address] January, [place] [address] [address] January, BMI 50.0-59.9, adult Z68.43 [place] [address] [address] January, [place] [address] [address] January, Acute respiratory distress R06.03 and Hy poxia R09.02 [place] [address] [address] January, [place] [address] [address] January, Shortness of breath on exertion R06.02 a nd BMI 50.0-59.9, adult Z68.43 [place] [address] [address] Dec, BMI 50.0-59.9, adult Z68.43 [place] [address] [address] Dec, [place] [address] [address] Dec, [place] [address] [address] Dec, [place] [address] [address] Nov, [place] [address] [address] Nov, [place] [address] [address] Oct, assisted current use of insulin Z79.4 ; Type 2 diabetes mellitus with other diabetic neurological complication E11.49 ; Swelling of both lower extremities M79.89 ; Essential hypertension I10 ; BMI 50.0-59.9, adult Z68.43 and Blurry vision H53.8 [place] [address] [address] Sep, Right upper quadrant pain R10.11 and Blo od in stool K92.1 [facility] [address] [facility] [id number] [address] [place] [address] Sep, Asymptomatic microscopic hem aturia R31.21 ; Glucose found in urine on examination R81 and BMI 50.0-59.9, adult Z68.43 [place] [address] [address] Sep, Type 2 diabetes mellitus with unspecifie d complications E11.8 [facility] [place] [id number] [address] [place] [address] Aug, Type 2 diabetes mellitus wit h unspecified complications E11.8 ; Benign essential hypertension I10 ; Cough R05 ; Acute bronchitis, unspecified organism J20.9 ; Other viral agents as the cause of diseases classified elsewhere B97.89 and Morbid (severe) obesity due to excess calories E66.01 [facility] [place] [address] [place] [id number] [address] [place] [address] May, Acute seasonal allergic rhin itis, unspecified trigger J30.2 and Candidiasis of penis B37.42 [place] [address] [address] 14 Dec, 2014 [place] [address] [address] Dec, [place] [address] [address] Oct, [place] [address] [address] Oct, [place] [address] [address] Dec, [place] [address] [address] Dec, [place] [address] [address] Dec, [place] [address] [address] Dec, [place] [address] [address] Dec, [facility] [address] [facility] [place] [address] Dec, [facility] [address] [facility] [place] [address] Nov, [facility] [address] [facility] [place] [address] Nov, [facility] [address] [facility] [place] [address] May, [facility] [address] [facility] [id number] [place] [address] May, [facility] [address] [facility] [place] [address] May, [facility] [address] [facility] [place] [address] May, [facility] [address] [facility] [place] [address] May, [facility] [address] [facility] [place] [address] Apr, [facility] [address] [facility] [address] Mar, [facility] [address] [facility] [place] [address] Mar, [facility] [address] [facility] [place] [address] Mar, [facility] [address] [facility] [place] [address] Mar, [facility] [address] [facility] [place] [address] Feb, [facility] [address] [facility] [place] [address] Feb, [facility] [address] [facility] [place] [address] Feb, [facility] [address] [facility] [place] [address] Feb, [facility] [address] [facility] [id number] [place] [address] January, [facility] [address] [facility] [place] [address] January, [facility] [address] [facility] [place] [address] January, [facility] [address] [facility] [place] [address] January, [facility] [address] [facility] [place] [address] January, [facility] [address] [facility] [place] [address] January, [facility] [address] [facility] [place] [address] January, [facility] [address] [facility] [place] [address] January, [facility] [address] [facility] [place] [address] January, [facility] [address] [facility] [place] [address] Dec, [facility] [address] [facility] [place] [address] Dec, [facility] [address] [facility] [place] [address] Dec, [facility] [address] [facility] [place] [address] Dec, [facility] [address] [facility] [place] [address] Dec, [facility] [address] [facility] [place] [address] Dec, [facility] [address] [facility] [place] [address] Dec, [facility] [address] [facility] [place] [address] Nov, [facility] [address] [facility] [place] [address] Nov, [facility] [address] [place] [id number] [place] [address] Nov, [facility] [address] [place] [id number] [place] [address] Oct, [facility] [address] [address] Oct, [facility] [address] [place] [address] [place] [address] Oct, [facility] [address] [place] [address] [place] [address] Oct, [facility] [address] [place] [id number] [place] [address] Jul, [facility] [address] [place] [id number] [place] [address] Jun, [facility] [address] [place] [id number] [place] [address] Jun, [facility] [address] [place] [id number] [place] [address] May, IMMUNIZATIONS No Known Immunizations SOCIAL HISTORY Never [...] History post surgeries Hospitalization History [facility]- Abd pain 09/24/2017
--- OUTSIDE RECORDS SUMMARY | 2019-11-21 01:49 | XMS REPORT | Encounter Summary ---
Author Author [facility] Organization [facility] Address Unknown Phone Unavailable Care Team Providers Care Drugless Physician Name Role Phone PCP Unavailable Encounter Details Care Team Description Date Type Department ProviderSusan MD [address] [place] [id number] 10/01/2012 Hist-Other [facility] Social History Date Tobacco Use Types Packs/Day [...]
--- OUTSIDE RECORDS SUMMARY | 2019-11-21 01:49 | XMS REPORT | Encounter Summary ---
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 documented as of this encounter Last Filed Vital Signs Reading Time Taken Comments Vital Sign 124/78 10/01/2012 1:50 PM ANAESTHESIOLOGIST Blood Pressure 72 10/01/2012 1:50 PM ANAESTHESIOLOGIST Pulse - - Temperature - - Respiratory Rate - - Oxygen Saturation - - Inhaled Oxygen Concentration 153.5 kg (338 lb 8 oz) 10/01/2012 1:50 PM ANAESTHESIOLOGIST Weight 175.3 cm (5' 9") 10/01/2012 1:50 PM ANAESTHESIOLOGIST Height 49.99 10/01/2012 1:50 PM ANAESTHESIOLOGIST Body Mass Index documented in this encounter Progress Notes * Antwan Atwood MD - 10/01/2012 2:20 PM ANAESTHESIOLOGIST History of Present Illness Diabetes-[facility]: The patient's visit is for a consultation regarding type 2 diabetes mellitus (dx 'd around 2008). The patient's last clinic visit was with Dr. Rory Marroquin 3 month(s) ago. Carli calzada changes made at the last visit include referring patient here. Symptoms: no polydipsia, no polyuria, no increased appetite, no weight loss, no fatigue and no episodes of hypoglycemia The patient presents with complaints of occasional episodes of mild bilateral ey e blurred vision, described as blurry vision. Symptoms are worsening. The patien t's meter is/are downloaded and reviewed. Please see scanned meter readings for annotations. Associated symptoms: abdominal pain, but appetite not increased, no anorexia, no nausea, no vomiting and no abnormal healing. The patient is due for a hemoglobin A1C, a retinal exam, a urine microalbumin and a foot exam. Current treatment includes: basal insulin (Lantus 10 units q AM; Novolin NPH 4 units q lunch and supper), premeal insulin (Humulin Regular 12 units q supper) and PANDA inhibitors (lisinopril 20 mg daily). Current treatment also includes teo betic teaching, glucose monitoring (Accu-Chek Angela) and diabetic diet (eats 3 m eals/day). Is not counting carbs. By report, there is good compliance with treat ment, good tolerance of treatment and good symptom control. Pertinent medical hi story: hypertension, Chronic Pancreatitis and neuropathy, but no coronary arter y disease, no peripheral vascular disease, no stroke, no cataract(s), no glaucom a, no nephropathy, no retinopathy and no hyperlipidemia. Risk factors: obesity, inactivity and use of psychotropic medications, but no prolonged corticosteroid use. Family history: diabetes mellitus type II, obesity and premature coronary artery disease, but no diabetes mellitus type I. Past evaluation has included h emoglobin A1c, metabolic panel and fasting lipid profile. Past treatment has inc luded basal insulin, diabetic teaching, metformin, glucose monitoring, PANDA inhib itor, diet modification, exercise program and bolus insulin. He was previously e valuated by a primary physician 3 month(s) ago. Assessment 1. Type 2 Diabetes Mellitus With Complication - Uncontrolled 250.92 2. Diabetic Peripheral Neuropathy 357.2 3. Hypertension 401.9 Plan 1. HumuLIN R 100 UNIT/ML Injection Solution; Inject 12 units q supper; Therapy: [id number]; Status: DISCONTINUED Recorded; For: Type 2 Diabetes Mellitus - Uncomplicated, Uncontrolled (250.02); Rx By: ANTWAN ATWOOD; Dispense: 30 Days ; #:1 X 10 ML Vial; Refill: 3; Record 2. Lantus SoloStar 100 UNIT/ML Subcutaneous Solution; inject 18 units q am, or a s directed, sub-q; Therapy: 01Oct2012 to (Evaluate:26Sep2013); Last Rx:01Oct2012 Ordered; For: Type 2 Diabetes Mellitus - Uncomplicated, Uncontrolled (250.02); R x By: ANTWAN ATWOOD; Dispense: 30 Days ; #:15 ML; Refill: 11; Record 3. NovoLIN N 100 UNIT/ML Subcutaneous Suspension; inject 4 units q lunch and sup per, sub-q; Therapy: [id number]; Status: DISCONTINUED Recorded; For: Type 2 Diabetes Mellitus - Uncomplicated, Uncontrolled (250.02); Rx By: ANTWAN ATWOOD; Dispense: 30 Days ; #:10 ML; Refill: 11; Record 4. NovoLOG 100 UNIT/ML Subcutaneous Solution; takes 4 units at lunch and 4 units at dinner; Therapy: 01Oct2012 to 01Oct2012; Last Rx:01Oct2012; Status: DISCONTINUED - Repl aced Ordered; For: Type 2 Diabetes Mellitus - Uncomplicated, Uncontrolled (250.02); R x By: ANTWAN ATWOOD; Dispense: 0 Days ; #:10 ML; Refill: 11; Record 5. NovoLOG FlexPen 100 UNIT/ML Subcutaneous Solution; inject 9 units q AC or as directed, sub-q; Therapy: 01Oct2012 to (Evaluate:26Sep2013); Last Rx:01Oct2012 Ordered; For: Type 2 Diabetes Mellitus - Uncomplicated, Uncontrolled (250.02); R x By: ANTWAN ATWOOD; Dispense: 30 Days ; #:9 ML; Refill: 11; Dispense Sample 6. Glucose Done: 01Oct2012 01:55PM Ordered; For: Type 2 Diabetes Mellitus - Uncomplicated, Uncontrolled (250.02); O rdered By: ANTWAN ATWOOD W Performed: In Office Due: [id number]; Last Updated By: HEIDY APONTE 1. Diabetes mellitus 2. This appears to be complicated by peripheral neuropat hy, as evidenced by his reduced monofilament sensation on exam, as well as subje ctive complaints of numbness affecting bilateral feet intermittently. There is no evidence for nephropathy or retinopathy to date, although both of these need to be evaluated. His diabetes is uncontrolled as evidenced by his fingerstick A 1c of 7.5% today in clinic. Review of his glucometer readings indicate poor con trol as well. I suspect his poor control is related to inadequate therapy, as w ell as his Latuda therapy. I have reviewed the pathogenesis for diabetes marsha us 2 with patient. I have also reviewed potential complications associated with poor glucose control, including nephropathy, retinopathy, peripheral neuropathy, autonomic neuropathy, and macrovascular complications, such as coronary events, strokes, and peripheral vascular disease. I have reviewed available treatment options with patient, including therapeutic lifestyle changes, such as diet, ex ercise, and weight loss, as well as available oral agents, subcutaneous GLP-1 ag onists, and subcutaneous insulin therapy. I have reviewed the mechanism of acti on and the risks associated with each agent. I have reviewed recommended treatm ent goals, including fasting glucose below 120, nonfasting/pre-meal and bedtime glucose below 140, as well as maintaining the A1c below 7%. I think we should t ransition him to a more appropriate MDI insulin regimen with Lantus and NovoLog. He is currently getting approximately 0.24 units/kg of total daily insulin. I will increase this to 0.3 units/kg and split this 60% bolus and 40% basal. I w ill increase his Lantus to 18 units every morning. I will initiate NovoLog to 9 units prior to meals(I have provided 3 sample pens, which should get him by for 30 days). I have advised patient to skip NovoLog if he is skipping a meal. I will discontinue the Humulin regular and Novolin NPH insulins. I have instructe d him to monitor his fingerstick glucose prior to meals and bedtime. I have ask ed him to report readings back to me in 7-10 days for review. Patient needs for mal dietary education regarding carbohydrates, so we will try and arrange this c loser to home. I will check his renal function, electrolytes, and urine MAB:Cr ratio today. Because of his chronic pancreatitis, I will also check a C-peptide to assess for any insulin deficiency. He will arrange for a formal eye evaluat ion closer to home. Lipids are up to date and at goal. I will see him back in clinic for follow up in 3 months. 2. Hypertension. Blood pressure is well controlled. I recommend he continue h is current regimen. I am checking renal function, electrolytes, and a urine MAB :Cr ratio. CC: Rory Marroquin M.D. Current Meds 1. Cymbalta 30 MG Oral Capsule Delayed Release Particles; TAKE 1 CAPSULE DAILY; Therapy: 01Oct2012 to (Evaluate:[id number]) Recorded; For: Depression With Anxiety (300.4); Dispense: 30 Days ; #:30 Capsule Delayed Release Particles; Refill: 0; Record; Last Updated By: ANTWAN ATWOOD 2. HumuLIN R 100 UNIT/ML Injection Solution; Inject 12 units q supper; Therapy: 01Oct2012 to (Evaluate:29Jan2013) Recorded; For: Type 2 Diabetes Mellitus - Uncomplicated, Uncontrolled (250.02); Rx By: ANTWAN ATWOOD; Dispense: 30 Days ; #:1 X 10 ML Vial; Refill: 3; Record 3. Lantus SoloStar 100 UNIT/ML Subcutaneous Solution; 10 units q am, sub-q; Ther apy: 01Oct2012 to (Evaluate:26Sep2013) Recorded; For: Type 2 Diabetes Mellitus - Uncomplicated, Uncontrolled (250.02); Dispense: 30 Days ; #:15 ML; Refill: 11; Record; Last Updated By: ANTWAN ATWOOD 4. Latuda 80 MG Oral Tablet; ONCE DAILY; Therapy: 01Oct2012 to (Evaluate: 13) Recorded; For: Schizophrenia (295.90); Dispense: 0 Days ; #:30 Tablet; Refill: 1 1; Record; Last Updated By: ANTWAN ATWOOD 5. Lisinopril 20 MG Oral Tablet; TAKE 1 TABLET DAILY; Therapy: 01Oct2012 to (Evaluate:26Sep2013) Recorded; For: Hypertension (401.9); Dispense: 90 Days ; #:90 Tablet; Refill: 3; Record; Last Updated By: ANTWAN ATWOOD 6. Magnesium Oxide 400 MG Oral Tablet; TAKE 1 TABLET DAILY; Therapy: 01Oct2012 t o (Evaluate:26Sep2013) Recorded; For: Health Maintenance (V70.0); Dispense: 30 Days ; #:30 Tablet; Refi ll: 11; Record; Last Updated By: ANTWAN ATWOOD 7. Multi Vitamin Mens Oral Tablet; TAKE 1 TABLET DAILY; Therapy: 01Oct2012 to (Evaluate:26Sep2013) Recorded; For: Health Maintenance (V70.0); Dispense: 30 Days ; #:30 Tablet; Refi ll: 11; Record; Last Updated By: ANTWAN ATWOOD 8. NovoLIN N 100 UNIT/ML Subcutaneous Suspension; inject 4 units q lunch and sup per, sub-q; Therapy: 01Oct2012 to (Evaluate:26Sep2013) Recorded; For: Type 2 Diabetes Mellitus - Uncomplicated, Uncontrolled (250.02); Rx By: ANTWAN ATWOOD; Dispense: 30 Days ; #:10 ML; Refill: 11; Record 9. Pantoprazole Sodium 40 MG Oral Tablet Delayed Release; TAKE 1 TABLET DAILY; T herapy: 01Oct2012 to (Evaluate:26Sep2013) Recorded; For: Esophageal Reflux (530.81); Dispense: 30 Days ; #:30 Tablet Delay ed Release; Refill: 11; Record; Last Updated By: ANTWAN ATWOOD Allergies 1. No Known Allergies No Known Allergies Vitals Vital Signs [Data Includes: Last 1 Day] 01Oct2012 01:50PM BMI Calculated 50.14 BSA Calculated 2.58 Height 5 ft 9 in Weight 338 lb 8 oz Systolic 124 Diastolic 78 Heart Rate 72 Review of Systems A 10 point review of systems was reviewed with patient and was otherwise negati ve, unless noted as positive above in the history of present illness. Active Problems 1. Chronic Pancreatitis 577.1 2. Depression With Anxiety 300.4 3. Diabetic Peripheral Neuropathy 357.2 4. DJD Osteoarthritis 715.90 5. Esophageal Reflux 530.81 6. Hypertension 401.9 7. Morbid Obesity 278.01 8. Schizophrenia 295.90 9. Type 2 Diabetes Mellitus With Complication - Uncontrolled 250.92 Surgical History 1. History of Cholecystectomy Laparoscopic 2. History of Endoscopic Insertion Of Stent Of Pancreatic Duct 3. History of Knee Arthroscopy bilateral knees 4. History of Tonsillectomy With Adenoidectomy Family History 1. Fraternal history of Atrial Fibrillation 2. Maternal history of Atrial Fibrillation 3. Paternal history of Coronary Artery Disease V17.49 had 4 vv CABG in his 60s 4. Fraternal history of Premature Cardiovascular Disease PCI in his early 40s 5. Maternal grandmother's history of Type 2 Diabetes Mellitus Social History 1. Exercising Erratically 2. Former Smoker V15.82 15 pk yr hx; quit around 1997 3. Marital History - V61.03 4. Previous history of alcohol use 5. Unemployed Denied 6. History of Uses Safety Equipment - Seatbelts Physical Exam General: Patient is a pleasant and cooperative gentleman, who is morb idly obese but otherwise in no apparent distress. Psych: Patient is alert and oriented x3. Neuro: Cranial nerve II-XII grossly. No tremor with resting or outstretched puckett ds. Monofilament sensation diminished in areas of bilateral feet. Head: Normocephalic atraumatic. Eyes: Anicteric sclera. No exophthalmus or lid lag. Throat: Clear oropharynx. Neck: No cervical lymphadenopathy. No thyromegaly. No thyroid nodules. Lungs: Clear to auscultation bilaterally. Heart: Regular rate and rhythm. Abdomen: Positive bowel sounds. Soft. Nontender to palpation. No lipohypertro phy. Extremities: No edema is noted. 2/4 bilateral dorsalis pedis pulses. No cyanos is or delayed capillary refill. Musculoskeletal: 5/5 proximal and distal muscle tone in all extremities. Skin: No rashes, dry skin, or moist skin noted. No foot sores, calluses, or ulc ers noted. The right foot was normal. The right toes were normal. Capillary refills were no rmal in the right toes. Pulse is 2 in the dorsalis pedis of the right foot. The left foot was normal. The left toes were normal. Capillary refill: normal in the left toes. Pulse is 2 in the dorsalis pedis of the left foot. Monofilament Testing: showed decreased sensation of the foot Tactile sensation in the right foot (see image for location): number 1 was dimin ished, number 2 was diminished and number 3 was diminished, but number 4 was nor mal, number 5 was normal, number 6 was normal and number 10 was normal. Tactile sensation in the left foot (see image for location): number 1 was dimini shed, number 2 was diminished, number 3 was diminished, number 4 was diminished, number 5 was diminished and number 6 was diminished, but number 10 was normal. Results/Data Diabetes Flowsheet [Data Includes: Last 1 Instance] 01Oct2012 Systolic 124 Diastolic 78 BMI Calculated 50.14 BSA Calculated 2.58 Height 5 ft 9 in Weight 338 lb 8 oz Hemoglobin A1C Finger Stick 7.5 Hemoglobin A1C 8.3 8.3 Hemoglobin A1c Cholesterol Lipid Prof 125 Triglycerides 57 Hdl 41 41 Ldl Cholesterol 73 HDL Results Glucose 01Oct2012 01:55PM ANTWAN ATWOOD 1000 pp Test Name Result Flag Reference Glucose 163 A 06/14/2012 (PCP): Sodium 135, potassium 4.5, chloride 102, CO2-26.1, BUN 13, cr eatinine 0.7*, glucose 185*, calcium 8.3*, albumin 3.4, total protein 7, total b ilirubin 0.7, alkaline phosphatase 122, AST 51*, ALT 112* Signatures Electronically signed by : ANTWAN ATWOOD M.D.; Oct 01 2012 2:59PM (Author) STHESIOLOGIST * Antwan Atwood MD - 10/01/2012 2:20 PM ANAESTHESIOLOGIST Clinical Summary Patient Name : SUSSY GATES Appointment Date: 10/01/2012 2:20:00 PM : [id number] : [address] [place] [address] : Assessed Problems Type 2 Diabetes Mellitus - Uncomplicated, Uncontrolled Treatment Plan Medication Changes: Lantus SoloStar 100 UNIT/ML Subcutaneous Solution; inject 18 units q am, or as directed, sub-q; Days: 30; Qty: 15; Refill: 11 [Renewed] NovoLOG 100 UNIT/ML Subcutaneous Solution; takes 4 units at lunch and 4 units at dinner; Days: 0; Qty: 10; Refill: 11 [Stop] NovoLOG FlexPen 100 UNIT/ML Subcutaneous Solution; inject 9 units q AC or as d irected, sub-q; Days: 30; Qty: 9; Refill: 11 [Start] Labs/Procedures: Glucose Vitals Recorded Date/Time: 10/01/2012 1:50:00 PM Systolic: 124 mm Hg; Diastolic: 78 mm Hg; Heart Rate: 72 bpm; BMI Calculated: 50.14; BSA Calculated: 2.58; Height: 5-9 in; Weight: 338-8 lb Current Medications Cymbalta 30 MG Oral Capsule Delayed Release Particles; TAKE 1 CAPSULE DAILY; D ays: 30; Qty: 30; Refill: 0 Lantus SoloStar 100 UNIT/ML Subcutaneous Solution; inject 18 units q am, or as directed, sub-q; Days: 30; Qty: 15; Refill: 11 Latuda 80 MG Oral Tablet; ONCE DAILY; Days: 0; Qty: 30; Refill: 11 Lisinopril 20 MG Oral Tablet; TAKE 1 TABLET DAILY.; Days: 90; Qty: 90; Refill: 3 Magnesium Oxide 400 MG Oral Tablet; TAKE 1 TABLET DAILY.; Days: 30; Qty: 30; R efill: 11 Multi Vitamin Mens Oral Tablet; TAKE 1 TABLET DAILY.; Days: 30; Qty: 30; Refil l: 11 NovoLOG FlexPen 100 UNIT/ML Subcutaneous Solution; inject 9 units q AC or as d irected, sub-q; Days: 30; Qty: 9; Refill: 11 Pantoprazole Sodium 40 MG Oral Tablet Delayed Release; TAKE 1 TABLET DAILY.; D ays: 30; Qty: 30; Refill: 11 Allergies No Known Allergies Results Glucose 1000 pp Glucose; Value = 163; Abnormal Document and Provider Details Document: Clinical Summary Provider: ANGELIC Site: [facility] Site Address : [address] [place] [address] Site STHESIOLOGIST documented in this encounter Plan of Treatment Not on filedocumented as of this encounter Procedures Comments Procedure Name Priority Date/Time Associated Diag nosis POCT GLYCOSYLATED Routine 10/01/2012 HEMOGLOBIN (HGB A1C) 2:00 PM ANAESTHESIOLOGIST GLUCOSE Routine 10/01/2012 1:55 PM ANAESTHESIOLOGIST documented in this encounter Results * POCT glycosylated hemoglobin (Hb A1C) (10/01/2012 2:00 PM ANAESTHESIOLOGIST) Hemoglobin A1c 7.5 (H) 0 OFFICE ENTERED Finger Stick Specimen Performing Organization Address [facility] Ph one Number OFFICE ENTERED * Glucose (10/01/2012 1:55 PM ANAESTHESIOLOGIST) Glucose 163 (A) 0 OFFICE ENTERED Specimen Performing Organization Address [facility] Ph one Number OFFICE ENTERED documented in this encounter Visit Diagnoses Not on filedocumented in this encounter
--- OUTSIDE RECORDS SUMMARY | 2019-11-21 01:50 | XMS REPORT ---
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 [address] [facility]NOTE 3] [id number] [address] [place] [phone] Nov, Type 2 diabetes mellitus wit h unspecified complications E11.8 [facility] [address] [facility]NOTE 3] [id number] [address] [place] [phone] Oct, [facility] [address] [facility]NOTE 3] [id number] [address] [place] [phone] Oct, [facility] [address] [facility]NOTE 3] [id number] [address] [place] [phone] Oct, [facility] [address] [facility]NOTE 3] [id number] [address] [place] [phone] Aug, [facility] [address] [facility]NOTE 3] [id number] [address] [place] [phone] Aug, [facility] [address] [facility]NOTE [facility]] [id number] [address] [place] [phone] Aug, Type 2 diabetes mellitus wit h other diabetic neurological complication E11.49 and detention current use of insulin Z79.4 [facility] [address] [facility]NOTE 3] [id number] [address] [place] [phone] 19 Jun, 2018 Gross hematuria R31.0 [facility] [address] [facility]NOTE 3] [id number] [address] [place] [phone] 15 Jun, 2018 Essential hypertension I10 [facility] [address] [facility]NOTE 3] [id number] [address] [place] [phone] 04 Jun, 2018 [facility] [address] [facility]NOTE 3] [id number] [address] [place] [phone] Jun, [facility] [address] [facility]NOTE 3] [id number] [address] [place] [phone] May, [facility] [address] [facility]NOTE 3] [id number] [address] [place] [phone] May, [facility] [address] [facility]NOTE 3] [id number] [address] [place] [phone] May, Type 2 diabetes mellitus wit h other diabetic neurological complication E11.49 [facility] [address] [facility]NOTE 3] [id number] [address] [place] [phone] May, [facility] [address] [facility]NOTE 3] [id number] [address] [place] [phone] Apr, [facility] [address] [facility]NOTE 3] [id number] [address] [place] [phone] Apr, [facility] [address] [place] [address] Apr, [facility] [address] [facility]NOTE 3] [id number] [address] [place] [address] Apr, Type 2 diabetes mellitus wit h other diabetic neurological complication E11.49 ; Essential hypertension I10 ; Yeast dermatitis of penis B37.49 ; Burning with urination R30.0 and Non-adherence to medical treatment Z91.19 [facility] [address] [facility]NOTE 3] [id number] [address] [place] [phone] Apr, [facility] [address] [facility]NOTE 3] [id number] [address] [place] [phone] Feb, [facility] [address] [facility]NOTE 3] [id number] [address] [place] [phone] Feb, [facility] [address] [place] [id number] [address] [place] [phone] January, [facility] [address] [place] [id number] [place] [address] January, [facility] [address] [address] January, Onychomycosis B35.1 ; Callus of foot L84 and Type 2 diabetes mellitus with unspecified complications E11.8 [facility] [address] [place] [id number] [address] [place] [phone] January, [facility] [address] [address] January, [facility] [address] [place] [id number] [address] [place] [phone] January, [facility] [address] [place] [id number] [address] [place] [phone] January, [facility] [address] [place] [id number] [address] [place] [address] January, BMI 50.0-59.9, adult Z68.43 [facility] [address] [place] [id number] [address] [place] [phone] January, [facility] [address] [place] [id number] [address] [place] [address] January, Acute respiratory distress R 06.03 and Hypoxia R09.02 [facility] [address] [facility]NOTE 3] [id number] [address] [place] [phone] January, [facility] [address] [place] [id number] [address] [place] [address] January, Shortness of breath on exert ion R06.02 and BMI 50.0-59.9, adult Z68.43 [facility] [address] [address] Dec, BMI 50.0-59.9, adult Z68.43 [facility] [address] [place] [id number] [address] [place] [phone] Dec, [facility] [address] [place] [id number] [place] [address] Dec, [facility] [address] [place] [id number] [address] [place] [phone] Dec, [place] [address] [address] Nov, [facility] [address] [place] [id number] [place] [address] Nov, [facility] [address] [address] Oct, detention current use of ins ulin Z79.4 ; Type 2 diabetes mellitus with other diabetic neurological complication E11.49 ; Swelling of both lower extremities M79.89 ; Essential hypertension I10 ; BMI 50.0-59.9, adult Z68.43 and Blurry vision H53.8 [facility] [address] [place] [id number] [address] [place] [phone] Sep, Right upper quadrant pain R1 0.11 and Blood in stool K92.1 [facility] [address] [address] Sep, Asymptomatic microscopic hem aturia R31.21 ; Glucose found in urine on examination R81 and BMI 50.0-59.9, adult Z68.43 [facility] [address] [place] [id number] [address] [place] [address] Sep, Type 2 diabetes mellitus wit h unspecified complications E11.8 [facility] [address] [place] [id number] [place] [phone] Aug, Type 2 diabetes mellitus wit h unspecified complications E11.8 ; Benign essential hypertension I10 ; Cough R05 ; Acute bronchitis, unspecified organism J20.9 ; Other viral agents as the cause of diseases classified elsewhere B97.89 and Morbid (severe) obesity due to excess calories E66.01 [facility] [address] [facility]NOTE 3] [id number] [address] [place] [phone] May, Acute seasonal allergic rhin itis, unspecified trigger J30.2 and Candidiasis of penis B37.42 [facility] [address] [facility]NOTE 3] [id number] [address] [place] [phone] 14 Dec, 2014 [facility] [address] [facility]NOTE 3] [id number] [place] [phone] Dec, [facility] [address] [facility]NOTE 3] [id number] [address] [place] [phone] Oct, [facility] [address] [place] [id number] [address] [place] [phone] Oct, [facility] [address] [facility] 3] [id number] [address] [place] [phone] Dec, [facility] [address] [facility] 3] [id number] [address] [place] [phone] Dec, [facility] [address] [place] [id number] [address] [place] [phone] Dec, [facility] [address] [facility] 3] [id number] [address] [place] [phone] Dec, [facility] [address] [facility] 3] [id number] [address] [place] [phone] Dec, [facility] [address] [place] [id number] [address] [place] [phone] Dec, [facility] [address] [facility] 3] [id number] [address] [place] [phone] Nov, [facility] [address] [place] [id number] [address] [place] [phone] Nov, [facility] [address] [id number] [address] [place] [address], [place] [address] May, [facility] [address] [id number] [address] [place] [address], [place] [address] May, [facility] [address] [id number] [address] [place] [address], [place] [address] May, [facility] [address] [id number] [address] [place] [address], [place] [address] 17 May, 2013 [facility] [address] [id number] [address] [place] [address], [place] [address] May, [facility] [address] [id number] [address] [place] [address], [place] [address] Apr, [facility] [address] [id number] [place] [id number] Mar, [facility] [address] [id number] [address] [place] [address], [place] [address] Mar, [facility] [address] [id number] [address] [place] [address], [place] [address] Mar, [facility] [address] [id number] [address] [place] [address], [place] [address] Mar, [facility] [address] [id number] [address] [place] [address], [place] [address] Feb, [facility] [address] [id number] [address] [place] [address], [place] [address] Feb, [facility] [address] [id number] [address] [place] [address], [place] [address] Feb, [facility] [address] [id number] [address] [place] [address], [place] [address] Feb, [facility] [address] [id number] [address] [place] [address], [place] [address] January, [facility] [address] [id number] [address] [place] [address], [place] [address] January, [facility] [address] [id number] [address] [place] [address], [place] [address] January, [facility] [address] [id number] [address] [place] [address], [place] [address] January, [facility] [address] [id number] [address] [place] [address], [place] [address] January, [facility] [address] [id number] [address] [place] [address], [place] [address] January, [facility] [address] [id number] [address] [place] [address], [place] [address] January, [facility] [address] [id number] [address] [place] [address], [place] [address] January, [facility] [address] [id number] [address] [place] [address], [place] [address] January, [facility] [address] [id number] [address] [place] [address], [place] [address] Dec, [facility] [address] [id number] [address] [place] [address], [place] [address] Dec, [facility] [address] [id number] [address] [place] [address], [place] [address] Dec, [facility] [address] [id number] [address] [place] [address], [place] [address] Dec, [facility] [address] [id number] [address] [place] [address], [place] [address] Dec, [facility] [address] [id number] [address] [place] [address], [place] [address] Dec, [facility] [address] [id number] [address] [place] [address], [place] [address] Dec, [facility] [address] [id number] [address] [place] [address], [place] [address] Nov, [facility] [address] [id number] [address] [place] [phone] Nov, [facility] [address] [id number] [address] [place] [address] Nov, [facility] [address] [id number] [address] [place] [phone] Oct, [facility] [address] [id number] [address] [place] [phone] Oct, [facility] [address] [id number] [address] [place] [address] Oct, [facility] [address] [facility] [id number] [address] [place] [phone] Oct, [facility] [address] [facility] [id number] [address] [place] [address] Jul, [facility] [address] [facility] [id number] [address] [place] [address] Jun, [facility] [address] [id number] [address] [place] [phone] Jun, [facility] [address] [facility] [id number] [address] [place] [phone] May, IMMUNIZATIONS No Known Immunizations SOCIAL HISTORY Never Assessed REASON FOR VISIT EMR-[facility] PLAN OF CARE VITAL SIGNS MEDICATIONS Unknown [...] History post surgeries Hospitalization History [facility] [place]- Abd pain 09/24/2017
--- OUTSIDE RECORDS SUMMARY | 2019-11-21 01:50 | XMS REPORT ---
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 [id number] [address] [place] [id number] Feb, [facility] [address] [facility] [id number] [address] [place] [phone] January, [facility] [address] [facility] [id number] [address] [place] [phone] January, [facility] [address] [facility] [id number] [address] [place] [phone] Nov, Type 2 diabetes mellitus wit h unspecified complications E11.8 [facility] [address] [facility] [id number] [address] [place] [phone] Oct, [facility] [address] [facility] [id number] [address] [place] [phone] Oct, [facility] [address] [facility] [id number] [address] [place] [phone] Oct, [facility] [address] [place] [id number] [address] [place] [phone] Aug, [facility] [address] [facility] [id number] [address] [place] [phone] Aug, [facility] [address] [facility] [id number] [address] [place] [phone] Aug, Type 2 diabetes mellitus wit h other diabetic neurological complication E11.49 and [facility] current use of insulin Z79.4 [facility] [address] [facility] [id number] [address] [place] [phone] Jun, Gross hematuria R31.0 [facility] [address] [facility] [id number] [address] [place] [phone] 15 Jun, 2018 Essential hypertension I10 [facility] [address] [facility] [id number] [address] [place] [phone] 04 Jun, 2018 [facility] [address] [facility] [id number] [address] [place] [phone] Jun, [facility] [address] [facility] [id number] [address] [place] [phone] May, [facility] [address] [id number] [address] [place] [phone] May, [facility] [address] [facility] [id number] [address] [place] [id number] 25 May, 2018 Type 2 diabetes mellitus wit h other diabetic neurological complication E11.49 [facility] [address] [facility] [id number] [address] [place] [id number] 14 May, 2018 [facility] [address] [facility] [id number] [address] [place] [phone] Apr, [facility] [address] [facility] [id number] [address] [place] [phone] Apr, [facility] [address] [facility] [place] [address] Apr, 18 [facility] [address] [facility] [id number] [address] [place] [phone] Apr, Type 2 diabetes mellitus wit h other diabetic neurological complication E11.49 ; Essential hypertension I10 ; Yeast dermatitis of penis B37.49 ; Burning with urination R30.0 and Non-adherence to medical treatment Z91.19 [facility] [address] [place] [id number] [address] [place] [phone] Apr, [facility] [address] [place] [id number] [address] [place] [phone] Feb, [facility] [address] [place] [id number] [address] [place] [phone] Feb, [facility] [address] [place] [id number] [address] [place] [phone] January, [facility] [address] [place] [id number] [place] [phone] January, [facility] [address] [place] [id number] [place] [phone] January, Onychomycosis B35.1 ; Callus of foot L84 and Type 2 diabetes mellitus with unspecified complications E11.8 [facility] [address] [place] [id number] [address] [place] [phone] January, [facility] [address] [place] [id number] [address] [place] [phone] January, [facility] [address] [place] [id number] [address] [place] [phone] January, [facility] [address] [place] [id number] [address] [place] [phone] January, [facility] [address] [place] [id number] [address] [place] [phone] January, BMI 50.0-59.9, adult Z68.43 [facility] [address] [place] [id number] [address] [place] [phone] January, [facility] [address] [place] [id number] [address] [place] [phone] January, Acute respiratory distress R 06.03 and Hypoxia R09.02 [facility] [address] [place] [id number] [address] [place] [phone] January, [place] [address] [id number] January, Shortness of breath on exert ion R06.02 and BMI 50.0-59.9, adult Z68.43 [place] [address] [id number] Dec, BMI 50.0-59.9, adult Z68.43 [place] [address] [address] Dec, [facility] [address] [address] Dec, [facility] [address] [address] Dec, [facility] [address] [address] Nov, [facility] [address] [address] Nov, [place] [address] [id number] Oct, [facility] current use of ins ulin Z79.4 ; Type 2 diabetes mellitus with other diabetic neurological complication E11.49 ; Swelling of both lower extremities M79.89 ; Essential hypertension I10 ; BMI 50.0-59.9, adult Z68.43 and Blurry vision H53.8 [facility] [address] [id number] Sep, Right upper quadrant pain R1 0.11 and Blood in stool K92.1 [facility] [address] [place] [id number] [address] [place] [phone] Sep, Asymptomatic microscopic hem aturia R31.21 ; Glucose found in urine on examination R81 and BMI 50.0-59.9, adult Z68.43 [facility] [address] [id number] Sep, Type 2 diabetes mellitus wit h unspecified complications E11.8 [facility] [address] [address] Aug, Type 2 diabetes mellitus wit h unspecified complications E11.8 ; Benign essential hypertension I10 ; Cough R05 ; Acute bronchitis, unspecified organism J20.9 ; Other viral agents as the cause of diseases classified elsewhere B97.89 and Morbid (severe) obesity due to excess calories E66.01 [facility] [address] [address] May, Acute seasonal allergic rhin itis, unspecified trigger J30.2 and Candidiasis of penis B37.42 [place] [address] [address] Dec, [place] [address] [address] Dec, [place] [address] [id number] Oct, [place] [address] [address] Oct, [facility] [address] [place] [id number] [address] [place] [phone] Dec, [facility] [address] [place] [id number] [address] [place] [phone] Dec, [place] [address] [address] Dec, [facility] [address] [address] Dec, [facility] [address] [address] Dec, [facility] [address] [id number] [address] [place] [address], [place] [address] Dec, [facility] [address] [id number] [address] [place] [address], [place] [address] Nov, [facility] [address] [id number] [address] [place] [address], [place] [address] Nov, [facility] [address] [id number] [address] [place] [address], [place] [address] May, [facility] [address] [id number] [address] [place] [address], [place] [address] May, [facility] [address] [id number] [address] [place] [address], [place] [address] May, [facility] [address] [id number] [address] [place] [address], [place] [address] May, [facility] [address] [id number] [address] [place] [address], [place] [address] May, [facility] [address] [id number] [address] [place] [address], [place] [address] Apr, [facility] [address] [id number] [place] [id number] Mar, [facility] [address] [id number] [address] [place] [address], [place] [address] Mar, [facility] [address] [id number] [address] [place] [phone] Mar, [facility] [address] [id number] [address] [place] [address], [place] [address] Mar, [facility] [address] [id number] [address] [place] [address], [place] [address] Feb, [facility] [address] [id number] [address] [place] [address], [place] [address] Feb, [facility] [address] [id number] [address] [place] [address], [place] [address] Feb, [facility] [address] [id number] [address] [place] [address], [place] [address] Feb, [facility] [address] [id number] [address] [place] [address], [place] [address] January, [facility] [address] [id number] [address] [place] [address], [place] [address] January, [facility] [address] [id number] [address] [place] [address], [place] [address] January, [facility] [address] [id number] [address] [place] [address], [place] [address] January, [facility] [address] [id number] [address] [place] [address], [place] [address] January, [facility] [address] [id number] [address] [place] [address], [place] [address] January, [facility] [address] [id number] [address] [place] [address], [place] [address] January, [facility] [address] [id number] [address] [place] [address], [place] [address] January, [facility] [address] [id number] [address] [place] [address], [place] [address] January, [facility] [address] [id number] [address] [place] [address], [place] [address] Dec, [facility] [address] [id number] [address] [place] [address], [place] [address] Dec, [facility] [address] [id number] [address] [place] [address], [place] [address] 17 Dec, 2012 [facility] [address] [id number] [address] [place] [address], [place] [address] Dec, [facility] [address] [id number] [address] [place] [address], [place] [address] Dec, [facility] [address] [id number] [address] [place] [phone] Dec, [facility] [address] [id number] [address] [place] [phone] Dec, [facility] [address] [id number] [address] [place] [phone] Nov, [facility] [address] [id number] [address] [place] [phone] Nov, [facility] [address] [id number] [address] [place] [id number] Nov, [facility] [address] [id number] [address] [place] [phone] Oct, [facility] [address] [id number] [address] [place] [id number] Oct, [facility] [address] [id number] [address] [place] [id number] Oct, [facility] [address] [id number] [address] [place] [phone] Oct, [facility] [address] [id number] [address] [place] [id number] Jul, [facility] [address] [id number] [address] [place] [phone] Jun, [facility] [address] [id number] [address] [place] [id number] Jun, [facility] [address] [id number] [address] [place] [phone] 13 May, 2010 IMMUNIZATIONS No Known Immunizations SOCIAL HISTORY Never Assessed REASON FOR VISIT [facility] PLAN OF CARE VITAL SIGNS MEDICATIONS Unknown [...] History post surgeries Hospitalization History [facility]- Abd pain 09/24/2017
--- OUTSIDE RECORDS SUMMARY | 2019-11-21 01:50 | XMS REPORT ---
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 Active 68996825 Problem Morbid (severe) obesity due to excess calories E66 .01 Active 490129660 Problem BMI 50.0-59.9, adult Z68.43 Active 538707916 Problem Essential hypertension I10 Active 54308205 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 [id number] ALLERGIES No Information ENCOUNTERS Encounter Location Date Diagnosis [facility] [address] [facility] [id number] [address] [place] [phone] Nov, Type 2 diabetes mellitus wit h unspecified complications E11.8 [facility] [address] [facility] [id number] [address] [place] [phone] Oct, [facility] [address] [facility] [id number] [address] [place] [phone] Oct, [facility] [address] [facility] [id number] [address] [place] [phone] Oct, [facility] [address] [facility] [id number] [address] [place] [id number] Aug, [facility] [address] [facility] [id number] [address] [place] [id number] Aug, [facility] [address] [facility] [id number] [address] [place] [id number] Aug, Type 2 diabetes mellitus wit h other diabetic neurological complication E11.49 and retirement current use of insulin Z79.4 [facility] [address] [facility] [id number] [address] [place] [id number] 19 Jun, 2018 Gross hematuria R31.0 [facility] [address] [facility] [id number] [address] [place] [id number] 15 Jun, 2018 Essential hypertension I10 [facility] [address] [facility] [id number] [address] [place] [phone] 04 Jun, 2018 [facility] [address] [facility] [id number] [address] [place] [phone] Jun, [facility] [address] [facility] [id number] [address] [place] [phone] May, [facility] [address] [facility] [id number] [address] [place] [id number] May, [facility] [address] [facility] [id number] [address] [place] [id number] May, Type 2 diabetes mellitus wit h other diabetic neurological complication E11.49 [facility] [address] [facility] [id number] [address] [place] [phone] May, [facility] [address] [facility] [id number] [address] [place] [phone] Apr, [facility] [address] [facility] [id number] [address] [place] [phone] Apr, [facility] [address] [place] [address] Apr, [facility] [address] [facility] [id number] [address] [place] [phone] Apr, Type 2 diabetes mellitus wit h other diabetic neurological complication E11.49 ; Essential hypertension I10 ; Yeast dermatitis of penis B37.49 ; Burning with urination R30.0 and Non-adherence to medical treatment Z91.19 [facility] [address] [facility] [id number] [address] [place] [phone] Apr, [facility] [address] [facility] [id number] [address] [place] [phone] Feb, [facility] [address] [facility] [id number] [address] [place] [phone] Feb, [facility] [address] [place] [id number] [address] [place] [phone] January, [facility] [address] [place] [id number] [place] [phone] January, [facility] [address] [address] January, Onychomycosis B35.1 ; Callus of foot L84 and Type 2 diabetes mellitus with unspecified complications E11.8 [facility] [address] [place] [id number] [address] [place] [phone] January, [facility] [address] [address] January, [facility] [address] [place] [id number] [address] [place] [phone] January, [facility] [address] [place] [id number] [address] [place] [phone] January, [facility] [address] [place] [id number] [address] [place] [phone] January, BMI 50.0-59.9, adult Z68.43 [facility] [address] [place] [id number] [address] [place] [phone] January, [facility] [address] [place] [id number] [address] [place] [phone] January, Acute respiratory distress R 06.03 and Hypoxia R09.02 [facility] [address] [facility] [id number] [address] [place] [phone] January, [facility] [address] [place] [id number] [address] [place] [id number] January, Shortness of breath on exert ion R06.02 and BMI 50.0-59.9, adult Z68.43 [facility] [address] [id number] Dec, BMI 50.0-59.9, adult Z68.43 [facility] [address] [place] [id number] [address] [place] [phone] Dec, [facility] [address] [place] [id number] [place] [phone] Dec, [facility] [address] [place] [id number] [address] [place] [phone] Dec, [place] [address] [address] Nov, [facility] [address] [place] [id number] [place] [phone] Nov, [facility] [address] [address] Oct, retirement current use of ins ulin Z79.4 ; Type 2 diabetes mellitus with other diabetic neurological complication E11.49 ; Swelling of both lower extremities M79.89 ; Essential hypertension I10 ; BMI 50.0-59.9, adult Z68.43 and Blurry vision H53.8 [facility] [address] [place] [id number] [address] [place] [phone] Sep, Right upper quadrant pain R1 0.11 and Blood in stool K92.1 [facility] [address] [id number] Sep, Asymptomatic microscopic hem aturia R31.21 ; Glucose found in urine on examination R81 and BMI 50.0-59.9, adult Z68.43 [facility] [address] [place] [id number] [address] [place] [id number] Sep, Type 2 diabetes mellitus wit h unspecified complications E11.8 [facility] [address] [place] [id number] [place] [phone] Aug, Type 2 diabetes mellitus wit h unspecified complications E11.8 ; Benign essential hypertension I10 ; Cough R05 ; Acute bronchitis, unspecified organism J20.9 ; Other viral agents as the cause of diseases classified elsewhere B97.89 and Morbid (severe) obesity due to excess calories E66.01 [facility] [address] [facility] [id number] [address] [place] [phone] May, Acute seasonal allergic rhin itis, unspecified trigger J30.2 and Candidiasis of penis B37.42 [facility] [address] [facility] [id number] [address] [place] [phone] 14 Dec, 2014 [facility] [address] [facility] [id number] [place] [phone] Dec, [facility] [address] [facility] [id number] [address] [place] [phone] Oct, [facility] [address] [place] [id number] [address] [place] [phone] Oct, [facility] [address] [facility] [id number] [address] [place] [id number] Dec, [facility] [address] [facility] [id number] [address] [place] [phone] Dec, [facility] [address] [place] [id number] [address] [place] [phone] Dec, [facility] [address] [facility] [id number] [address] [place] [phone] Dec, [facility] [address] [facility] [id number] [address] [place] [id number] Dec, [facility] [address] [place] [id number] [address] [place] [phone] Dec, [facility] [address] [facility] [id number] [address] [place] [phone] Nov, [facility] [address] [place] [id number] [address] [place] [phone] Nov, [facility] [address] [id number] [address] [place] [address], [place] [address] May, [facility] [address] [id number] [address] [place] [address], [place] [id number] May, [facility] [address] [id number] [address] [place] [address], [place] [address] May, [facility] [address] [id number] [address] [place] [address], [place] [id number] 17 May, 2013 [facility] [address] [id number] [address] [place] [address], [place] [id number] May, [facility] [address] [id number] [address] [place] [address], [place] [id number] Apr, [facility] [address] [id number] [id number] Mar, [facility] [address] [id number] [address] [place] [address], [place] [id number] Mar, [facility] [address] [id number] [address] [place] [address], [place] [id number] Mar, [facility] [address] [id number] [address] [place] [address], [place] [address] Mar, [facility] [address] [id number] [address] [place] [address], [place] [id number] Feb, [facility] [address] [id number] [address] [place] [address], [place] [id number] Feb, [facility] [address] [id number] [address] [place] [address], [place] [id number] Feb, [facility] [address] [id number] [address] [place] [address], [place] [id number] Feb, [facility] [address] [id number] [address] [place] [address], [place] [id number] January, [facility] [address] [id number] [address] [place] [address], [place] [address] January, [facility] [address] [id number] [address] [place] [address], [place] [id number] January, [facility] [address] [id number] [address] [place] [address], [place] [address] January, [facility] [address] [id number] [address] [place] [address], [place] [address] January, [facility] [address] [id number] [address] [place] [address], [place] [id number] January, [facility] [address] [id number] [address] [place] [address], [place] [address] January, [facility] [address] [id number] [address] [place] [address], [place] [id number] January, [facility] [address] [id number] [address] [place] [address], [place] [id number] January, [facility] [address] [id number] [address] [place] [address], [place] [id number] Dec, [facility] [address] [id number] [address] [place] [address], [place] [address] Dec, [facility] [address] [id number] [address] [place] [address], [place] [address] Dec, [facility] [address] [id number] [address] [place] [address], [place] [address] Dec, [facility] [address] [id number] [address] [place] [address], [place] [address] Dec, [facility] [address] [id number] [address] [place] [address], [place] [id number] Dec, [facility] [address] [id number] [address] [place] [address], [place] [address] Dec, [facility] [address] [id number] [address] [place] [address], [place] [id number] Nov, [facility] [address] [id number] [address] [place] [id number] Nov, [facility] [address] [id number] [address] [place] [id number] Nov, [facility] [address] [id number] [address] [place] [id number] Oct, [facility] [address] [id number] [address] [place] [id number] Oct, [facility] [address] [id number] [address] [place] [phone] Oct, [facility] [address] [facility] [id number] [address] [place] [phone] Oct, [facility] [address] [facility] [id number] [address] [place] [phone] Jul, [facility] [address] [facility] [id number] [address] [place] [id number] Jun, [facility] [address] [id number] [address] [place] [phone] Jun, [facility] [address] [facility] [id number] [address] [place] [id number] May, IMMUNIZATIONS No Known Immunizations SOCIAL HISTORY Never Assessed REASON FOR VISIT [place] [place] CARE VITAL SIGNS MEDICATIONS Unknown [...] History post surgeries Hospitalization History [facility]- Abd pain 09/24/2017
--- OUTSIDE RECORDS SUMMARY | 2019-11-21 01:50 | XMS REPORT ---
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 Active 43754160 Problem Morbid (severe) obesity due to excess calories E66 .01 Active 690704847 Problem BMI 50.0-59.9, adult Z68.43 Active 801012002 Problem Essential hypertension I10 Active 77859319 Problem long term current use of insulin Z79.4 Active [id number] ALLERGIES No Information ENCOUNTERS Encounter Location Date Diagnosis [place] [address] [place] [id number] [address] [place] [address] Feb, [place] [address] [place] [id number] [address] [place] [address] Feb, Type 2 diabetes mellitus wit h other diabetic neurological complication E11.49 ; Chest pain, unspecified type R07.9 ; Shortness of breath R06.02 ; Benign essential hypertension I10 ; Morbid (severe) obesity due to excess calories E66.01 ; long term current use of insulin Z79.4 ; Type 2 diabetes mellitus with unspecified complications E11.8 and BMI 50.0-59.9, adult Z68.43 [place] [address] [place] [id number] [address] [place] [address] January, [place] [address] [place] [id number] [address] [place] [address] January, [place] [address] [id number] [address] [place] [address] Nov, Type 2 diabetes mellitus wit h unspecified complications E11.8 [facility] [address] [id number] [address] [place] [address] Oct, [facility] [address] [facility] [id number] [address] [place] [address] Oct, [facility] [address] [id number] [address] [place] [address] Oct, [facility] [address] [id number] [address] [place] [phone] Aug, [facility] [address] [facility] [id number] [address] [place] [phone] Aug, [facility] [address] [facility] [id number] [address] [place] [address] Aug, Type 2 diabetes mellitus wit h other diabetic neurological complication E11.49 and long term current use of insulin Z79.4 [facility] [address] [facility] [id number] [address] [place] [phone] Jun, Gross hematuria R31.0 [facility] [address] [facility] [id number] [address] [place] [address] Jun, Essential hypertension I10 [facility] [address] [facility] [id number] [address] [place] [phone] Jun, [facility] [address] [facility] [id number] [address] [place] [phone] Jun, [facility] [address] [facility] [id number] [address] [place] [phone] May, [facility] [address] [facility] [id number] [address] [place] [phone] May, [facility] [address] [facility] [id number] [address] [place] [address] May, Type 2 diabetes mellitus wit h other diabetic neurological complication E11.49 [facility] [address] [facility] [id number] [address] [place] [phone] 14 May, 2018 [facility] [address] [facility] [id number] [address] [place] [address] Apr, [facility] [address] [facility] [id number] [address] [place] [address] Apr, [address] [place] [address] Apr, [facility] [address] [facility] [id number] [address] [place] [address] Apr, Type 2 diabetes mellitus wit h other diabetic neurological complication E11.49 ; Essential hypertension I10 ; Yeast dermatitis of penis B37.49 ; Burning with urination R30.0 and Non-adherence to medical treatment Z91.19 [place] [address] [place] [id number] [address] [place] [address] Apr, [facility] [address] [facility] [id number] [address] [place] [phone] Feb, [facility] [address] [place] [id number] [address] [place] [phone] Feb, [facility] [address] [place] [id number] [address] [place] [address] January, [facility] [id number] [place] [address] January, [facility] [address] [facility] [id number] [address] [place] [address] January, Onychomycosis B35.1 ; Callus of foot L84 and Type 2 diabetes mellitus with unspecified complications E11.8 [facility] [address] [facility] [id number] [address] [place] [address] January, [facility] [address] [place] [id number] [address] [place] [phone] January, [facility] [address] [place] [id number] [place] [address] January, [facility] [address] [facility] [id number] [address] [place] [address] January, [facility] [address] [facility] [id number] [address] [place] [address] January, BMI 50.0-59.9, adult Z68.43 [facility] [address] [facility] [id number] [address] [place] [address] January, [facility] [address] [facility] [id number] [address] [place] [address] January, Acute respiratory distress R 06.03 and Hypoxia R09.02 [facility] [address] [facility] [id number] [address] [place] [address] January, [facility] [address] [place] [id number] [place] [address] January, Shortness of breath on exert ion R06.02 and BMI 50.0-59.9, adult Z68.43 [facility] [address] [facility] [id number] [address] [place] [address] Dec, BMI 50.0-59.9, adult Z68.43 [facility] [address] [place] [id number] [address] [place] [address] Dec, [facility] [address] [facility] [id number] [address] [place] [address] Dec, [facility] [address] [facility] [id number] [address] [place] [phone] Dec, [facility] [address] [place] [id number] [address] [place] [phone] Nov, [facility] [address] [facility] [id number] [address] [place] [address] Nov, [facility] [address] [place] [id number] [address] [place] [address] Oct, long term current use of ins ulin Z79.4 ; Type 2 diabetes mellitus with other diabetic neurological complication E11.49 ; Swelling of both lower extremities M79.89 ; Essential hypertension I10 ; BMI 50.0-59.9, adult Z68.43 and Blurry vision H53.[address] [address] Sep, Right upper quadrant pain R1 0.11 and Blood in stool K92.1 [facility] [place] [address] [address] Sep, Asymptomatic microscopic hem aturia R31.21 ; Glucose found in urine on examination R81 and BMI 50.0-59.9, adult Z68.[address] [address] Sep, Type 2 diabetes mellitus wit h unspecified complications E11.[address] [address] Aug, Type 2 diabetes mellitus wit h unspecified complications E11.8 ; Benign essential hypertension I10 ; Cough R05 ; Acute bronchitis, unspecified organism J20.9 ; Other viral agents as the cause of diseases classified elsewhere B97.89 and Morbid (severe) obesity due to excess calories E66.[address] [address] May, Acute seasonal allergic rhin itis, unspecified trigger J30.2 and Candidiasis of penis B37.[address] [address] Dec, [address] [address] Dec, [address] [address] Oct, [address] [address] Oct, [facility] [address] [id number] [address] [place] [address], [place] [address] Dec, [facility] [address] [id number] [address] [place] [address], [place] [address] Dec, [facility] [address] [id number] [address] [place] [address], [place] [address] Dec, [facility] [address] [id number] [address] [place] [address], [place] [address] Dec, [facility] [address] [id number] [address] [place] [address], [place] [address] Dec, [facility] [address] [id number] [address] [place] [address], [place] [address] Dec, [facility] [address] [id number] [address] [place] [address], [place] [address] Nov, [facility] [address] [id number] [address] [place] [address], [place] [address] Nov, [facility] [address] [id number] [address] [place] [address], [place] [address] May, [facility] [address] [id number] [address] [place] [address] May, [facility] [address] [id number] [address] [place] [phone] 19 May, 2013 [facility] [address] [id number] [address] [place] [phone] 17 May, 2013 [facility] [address] [id number] [address] [place] [address], [place] [address] 12 May, 2013 [facility] [address] [id number] [address] [place] [phone] Apr, [facility] [address] [id number] [place] [id number] Mar, [facility] [address] [id number] [address] [place] [phone] Mar, [facility] [place] [address] [id number] [address] [place] [address], [place] [address] Mar, [facility] [address] [id number] [address] [place] [address], [place] [address] Mar, [facility] [address] [id number] [address] [place] [address], [place] [address] Feb, [facility] [address] [id number] [address] [place] [address], [place] [address] Feb, [facility] [address] [id number] [address] [place] [address], [place] [address] Feb, [facility] [address] [id number] [address] [place] [address], [place] [address] Feb, [facility] [place] [address] [id number] [address] [place] [address], [place] [address] January, [facility] [place] [address] [id number] [address] [place] [address], [place] [address] January, [facility] [place] [address] [id number] [address] [place] [address], [place] [address] January, [facility] [address] [id number] [address] [place] [address], [place] [address] January, [facility] [address] [id number] [address] [place] [address], [place] [address] January, [facility] [address] [id number] [address] [place] [address], [place] [address] January, [facility] [address] [id number] [address] [place] [address], [place] [address] January, [facility] [address] [id number] [address] [place] [address], [place] [address] January, [facility] [address] [id number] [address] [place] [address], [place] [address] January, [facility] [address] [id number] [address] [place] [address], [place] [address] 23 Dec, 2012 [facility] [address] [id number] [address] [place] [address], [place] [address] 18 Dec, 2012 [facility] [address] [id number] [address] [place] [address], [place] [address] 17 Dec, 2012 [facility] [address] [id number] [address] [place] [address], [place] [address] 16 Dec, 2012 [facility] [address] [id number] [address] [place] [address], [place] [address] 16 Dec, 2012 [facility] [address] [id number] [address] [place] [address], [place] [address] 11 Dec, 2012 [facility] [address] [id number] [address] [place] [address], [place] [address] 02 Dec, 2012 [facility] [address] [id number] [address] [place] [address], [place] [address] 26 Nov, 2012 [facility] [address] [id number] [address] [place] [address], [place] [address] Nov, [facility] [address] [id number] [address] [place] [address], [place] [address] 14 Nov, 2012 [facility] [address] [id number] [address] [place] [address], [place] [address] 28 Oct, 2012 [facility] [address] [id number] [address] [place] [address], [place] [address] 13 Oct, 2012 [facility] [address] [id number] [address] [place] [address], [place] [address] 05 Oct, 2012 [facility] [address] [id number] [address] [place] [address], [place] [address] 05 Oct, 2012 [facility] [address] [id number] [address] [place] [address], [place] [address] 16 Jul, 2010 [facility] [address] [id number] [address] [place] [address], [place] [address] 14 Jun, 2010 [facility] [address] [facility] [id number] [address] [place] [phone] 12 Jun, 2010 [facility] [address] [facility] [id number] [address] [place] [address] 13 May, 2010 IMMUNIZATIONS No Known Immunizations [...] History post surgeries Hospitalization History [facility]- Abd pain 09/24/2017
--- OUTSIDE RECORDS SUMMARY | 2019-11-21 01:50 | XMS REPORT ---
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 Active 49256489 Problem Morbid (severe) obesity due to excess calories E66 .01 Active 010583404 Problem BMI 50.0-59.9, adult Z68.43 Active 582090617 Problem Essential hypertension I10 Active 21189753 Problem 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 Active [id number] ALLERGIES No Information ENCOUNTERS Encounter Location Date Diagnosis [place] [address] [place] [id number] [place] [address] Feb, [place] [address] [place] [id number] [place] [address] Feb, Type 2 diabetes mellitus wit h other diabetic neurological complication E11.49 ; Chest pain, unspecified type R07.9 ; Shortness of breath R06.02 ; Benign essential hypertension I10 ; Morbid (severe) obesity due to excess calories E66.01 ; 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 ; Type 2 diabetes mellitus with unspecified complications E11.8 and BMI 50.0-59.9, adult Z68.43 [facility] [address] [place] [id number] [address] [place] [address] January, [facility] [address] [place] [id number] [address] [place] [address] January, [place] [address] [place] [id number] [place] [address] Nov, Type 2 diabetes mellitus wit h unspecified complications E11.8 [facility] [address] [id number] [address] [place] [address] Oct, [facility] [address] [id number] [address] [place] [address] Oct, [facility] [address] [id number] [address] [place] [address] Oct, [facility] [address] [id number] [address] [place] [phone] Aug, [facility] [address] [id number] [address] [place] [phone] Aug, [facility] [address] [facility] [id number] [address] [place] [address] Aug, Type 2 diabetes mellitus wit h other diabetic neurological complication E11.49 and group home current use of insulin Z79.4 [facility] [address] [id number] [address] [place] [address] Jun, Gross hematuria R31.0 [facility] [address] [facility] [id number] [address] [place] [phone] 15 Jun, 2018 Essential hypertension I10 [facility] [address] [facility] [id number] [address] [place] [phone] Jun, [facility] [address] [facility] [id number] [address] [place] [address] Jun, [facility] [address] [facility] [id number] [address] [place] [address] May, [facility] [address] [facility] [id number] [address] [place] [address] May, [facility] [address] [facility] [id number] [address] [place] [id number] May, Type 2 diabetes mellitus wit h other diabetic neurological complication E11.49 [facility] [address] [facility] [id number] [address] [place] [phone] May, [facility] [address] [facility] [id number] [address] [place] [phone] Apr, [facility] [address] [facility] [id number] [address] [place] [address] Apr, [address] [place] [address] Apr, [facility] [address] [facility] [id number] [address] [place] [address] Apr, Type 2 diabetes mellitus wit h other diabetic neurological complication E11.49 ; Essential hypertension I10 ; Yeast dermatitis of penis B37.49 ; Burning with urination R30.0 and Non-adherence to medical treatment Z91.19 [facility] [address] [place] [id number] [address] [place] [phone] Apr, [facility] [address] [facility] [id number] [address] [place] [phone] Feb, [facility] [address] [facility] [id number] [address] [place] [phone] Feb, [facility] [address] [place] [id number] [address] [place] [phone] January, [facility] [address] [facility] [id number] [address] [place] [phone] January, [facility] [address] [facility] [id number] [address] [place] [address] January, Onychomycosis B35.1 ; Callus of foot L84 and Type 2 diabetes mellitus with unspecified complications E11.8 [facility] [address] [facility] [id number] [address] [place] [phone] January, [facility] [address] [facility] [id number] [address] [place] [phone] January, [facility] [address] [facility] [id number] [address] [place] [phone] January, [facility] [address] [facility] [id number] [address] [place] [address] January, [facility] [address] [facility] [id number] [address] [place] [address] January, BMI 50.0-59.9, adult Z68.43 [facility] [address] [place] [id number] [address] [place] [address] January, [facility] [address] [facility] [id number] [address] [place] [phone] January, Acute respiratory distress R 06.03 and Hypoxia R09.02 [facility] [address] [facility] [id number] [address] [place] [phone] January, [facility] [address] [place] [id number] [address] [place] [address] January, Shortness of breath on exert ion R06.02 and BMI 50.0-59.9, adult Z68.43 [facility] [address] [facility] [id number] [address] [place] [address] Dec, BMI 50.0-59.9, adult Z68.43 [facility] [address] [facility] [id number] [address] [place] [phone] Dec, [facility] [address] [place] [id number] [address] [place] [phone] Dec, [facility] [address] [facility] [id number] [address] [place] [phone] Dec, [facility] [address] [facility] [id number] [address] [place] [phone] Nov, [facility] [address] [place] [id number] [address] [place] [phone] Nov, [facility] [address] [place] [id number] [address] [place] [phone] 27 Feb, 2018 ferry terminal agent current use of ins ulin Z79.4 ; Type 2 diabetes mellitus with other diabetic neurological complication E11.49 ; Swelling of both lower extremities M79.89 ; Essential hypertension I10 ; BMI 50.0-59.9, adult Z68.43 and Blurry vision H53.[address] [address] Sep, Right upper quadrant pain R1 0.11 and Blood in stool K92.1 [facility] [place] [address] [address] Sep, Asymptomatic microscopic hem aturia R31.21 ; Glucose found in urine on examination R81 and BMI 50.0-59.9, adult Z68.[address] [address] Sep, Type 2 diabetes mellitus wit h unspecified complications E11.[address] [address] Aug, Type 2 diabetes mellitus wit h unspecified complications E11.8 ; Benign essential hypertension I10 ; Cough R05 ; Acute bronchitis, unspecified organism J20.9 ; Other viral agents as the cause of diseases classified elsewhere B97.89 and Morbid (severe) obesity due to excess calories E66.[address] [address] May, Acute seasonal allergic rhin itis, unspecified trigger J30.2 and Candidiasis of penis B37.[address] [address] Dec, [address] [address] Dec, [place] [address] [address] Oct, [address] [address] Oct, [facility] [address] [id number] [address] [place] [address], [place] [address] Dec, [facility] [address] [id number] [address] [place] [address], [place] [address] Dec, [facility] [address] [id number] [address] [place] [address], [place] [address] Dec, [facility] [address] [id number] [address] [place] [address], [place] [address] Dec, [facility] [address] [id number] [address] [place] [address], [place] [address] Dec, [facility] [address] [id number] [address] [place] [address], [place] [address] Dec, [facility] [address] [id number] [address] [place] [address], [place] [address] Nov, [facility] [address] [id number] [address] [place] [address], [place] [address] Nov, [facility] [address] [id number] [address] [place] [address], [place] [address] May, [facility] [address] [id number] [address] [place] [address], [place] [address] May, [facility] [address] [id number] [address] [place] [address], [place] [address] May, [facility] [address] [id number] [address] [place] [address], [place] [address] 17 May, 2013 [facility] [address] [id number] [address] [place] [address], [place] [address] 12 May, 2013 [facility] [address] [id number] [address] [place] [address], [place] [address] Apr, [facility] [address] [id number] [id number] Mar, [facility] [address] [id number] [address] [place] [address], [place] [address] Mar, [facility] [address] [id number] [address] [place] [address], [place] [address] Mar, [facility] [address] [id number] [address] [place] [address], [place] [address] Mar, [facility] [address] [id number] [address] [place] [address], [place] [address] Feb, [facility] [address] [id number] [address] [place] [address], [place] [address] Feb, [facility] [address] [id number] [address] [place] [address], [place] [address] Feb, [facility] [address] [id number] [address] [place] [address], [place] [address] Feb, [facility] [address] [id number] [address] [place] [address], [place] [address] January, [facility] [address] [id number] [address] [place] [address], [place] [address] January, [facility] [address] [id number] [address] [place] [address], [place] [address] January, [facility] [address] [id number] [address] [place] [address], [place] [address] January, [facility] [address] [id number] [address] [place] [address], [place] [address] January, [facility] [address] [id number] [address] [place] [address], [place] [address] January, [facility] [address] [id number] [address] [place] [address], [place] [address] January, [facility] [address] [id number] [address] [place] [address], [place] [address] January, [facility] [address] [id number] [address] [place] [address], [place] [address] January, [facility] [address] [id number] [address] [place] [address], [place] [address] 23 Dec, 2012 [facility] [address] [id number] [address] [place] [address], [place] [address] 18 Dec, 2012 [facility] [address] [id number] [address] [place] [address], [place] [address] 17 Dec, 2012 [facility] [address] [id number] [address] [place] [address], [place] [address] 16 Dec, 2012 [facility] [address] [id number] [address] [place] [address], [place] [address] 16 Dec, 2012 [facility] [address] [id number] [address] [place] [address], [place] [address] 11 Dec, 2012 [facility] [address] [id number] [address] [place] [address], [place] [address] 02 Dec, 2012 [facility] [address] [id number] [address] [place] [address], [place] [address] 26 Nov, 2012 [facility] [address] [id number] [address] [place] [address], [place] [address] 21 Nov, 2012 [facility] [address] [id number] [address] [place] [address], [place] [address] 14 Nov, 2012 [facility] [address] [id number] [address] [place] [address], [place] [address] 28 Oct, 2012 [facility] [address] [id number] [address] [place] [address], [place] [address] 13 Oct, 2012 [facility] [address] [id number] [address] [place] [address], [place] [address] 05 Oct, 2012 [facility] [address] [id number] [address] [place] [address], [place] [address] 05 Oct, 2012 [facility] [address] [id number] [address] [place] [address], [place] [address] 16 Jul, 2010 [facility] [address] [id number] [address] [place] [address], [place] [address] 14 Jun, 2010 [facility] [address] [facility] [id number] [address] [place] [id number] 12 Jun, 2010 [facility] [address] [facility] [id number] [address] [place] [address] 13 May, 2010 IMMUNIZATIONS No Known Immunizations [...] History post surgeries Hospitalization History [facility]- Abd pain 09/24/2017
--- OUTSIDE RECORDS SUMMARY | 2019-11-21 01:50 | XMS REPORT ---
Author Author Walter CASTILLO Y Organization [facility] Address [address] [place] [address] Care Team Providers Care Industrial Hygiene Technician Name Role Phone GUY CASTILLO Unavailable PROBLEMS Type Condition ICD9-CM Code [id number] Code Onset Dates Condition S tatus SNOMED Code Problem Morbid (severe) obesity due to excess calories E66 .01 Active 537111637 Problem penitentiary current use of insulin Z79.4 Active 903800753 Problem Type 2 diabetes mellitus with unspecified complications E11.8 Active 95002543 Problem Skin ulcer of left foot, limited to breakdown of skin L97.521 Active 90443059 Problem Benign essential hypertension I10 Active 8546926 Problem Obesity, morbid, BMI 40.0-49.9 E66.01 Active 077373444 Problem 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 Active 00654220 Problem BMI 50.0-59.9, adult Z68.43 Active 015425410 Problem Essential hypertension I10 Active 80659186 Problem Systolic dysfunction I51.9 Active 836353909 ALLERGIES No Information ENCOUNTERS Encounter Location Date Diagnosis [facility] [id number] [place] [address] 16 Sep, 2019 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 [facility] [id number] [place] [address] 14 Sep, 2019 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 ; Essential hypertension I10 ; penitentiary current use of insulin Z79.4 ; Skin ulcer of left foot, limited to breakdown of skin L97.521 ; Obesity, morbid, BMI 40.0-49.9 E66.01 ; Systolic dysfunction I51.9 and Cough R05 [facility] [address] [facility] [id number] [address] [address] Sep, Bronchitis J40 and Non-recur rent acute suppurative otitis media of left ear without spontaneous rupture of tympanic membrane H66.002 [facility] [address] [facility] [id number] [address] [address] Aug, Bronchitis J40 ; Diarrhea, u nspecified R19.7 ; Nausea with vomiting, unspecified R11.2 and BMI 50.0-59.9, adult Z68.43 [facility] [address] [address] Jun, [place] [address] [address] Apr, [address] [place] [address] Mar, Benign essential hypertensio n I10 [place] [address] [address] Feb, [place] [address] [address] Feb, 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 ; Chest pain, unspecified type R07.9 ; Shortness of breath R06.02 ; Benign essential hypertension I10 ; Morbid (severe) obesity due to excess calories E66.01 ; meterman current use of insulin Z79.4 ; Type 2 diabetes mellitus with unspecified complications E11.8 and BMI 50.0-59.9, adult Z68.43 [facility] [address] [place] [id number] [place] [address] January, [place] [address] [address] January, [place] [address] [address] Nov, Type 2 diabetes mellitus with unspecifie d complications E11.8 [place] [address] [address] Oct, [facility] [address] [place] [id number] [place] [address] Oct, [facility] [address] [address] Oct, [facility] [address] [place] [id number] [place] [address] Aug, [facility] [address] [address] Aug, [facility] [address] [address] Aug, 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 and meterman current use of insulin Z79.4 [facility] [address] [place] [address] [place] [address] Jun, Gross hematuria R31.0 [place] [address] [address] 15 Jun, 2018 Essential hypertension I10 [facility] [address] [address] 04 Jun, 2018 [facility] [address] [address] Jun, [facility] [address] [address] May, [place] [address] [address] May, [facility] [address] [address] May, 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 [facility] [address] [place] [id number] [place] [address] 14 May, 2018 [facility] [address] [address] Apr, [facility] [address] [address] Apr, [place] [id number] [facility] [place] [address] Apr, [facility] [address] [address] Apr, 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 ; Essential hypertension I10 ; Yeast dermatitis of penis B37.49 ; Burning with urination R30.0 and Non-adherence to medical treatment Z91.19 [place] [address] [address] Apr, [place] [address] [address] Feb, [place] [address] [address] Feb, [place] [address] [address] January, [place] [address] [address] January, [place] [address] [address] January, Onychomycosis B35.1 ; Callus of foot L84 and Type 2 diabetes mellitus with unspecified complications E11.8 [place] [address] [address] January, [facility] [address] [address] January, [facility] [address] [address] January, [place] [address] [address] January, [place] [address] [address] January, BMI 50.0-59.9, adult Z68.43 [place] [address] [address] January, [place] [address] [address] January, Acute respiratory distress R06.03 and Hy poxia R09.02 [place] [address] [address] January, [place] [address] [address] January, Shortness of breath on exertion R06.02 a nd BMI 50.0-59.9, adult Z68.43 [place] [address] [address] Dec, BMI 50.0-59.9, adult Z68.43 [place] [address] [address] Dec, [place] [address] [address] Dec, [place] [address] [address] Dec, [place] [address] [address] Nov, [place] [address] [address] Nov, [place] [address] [address] Oct, penitentiary current use of insulin Z79.4 ; Type 2 diabetes mellitus with other diabetic neurological complication E11.49 ; Swelling of both lower extremities M79.89 ; Essential hypertension I10 ; BMI 50.0-59.9, adult Z68.43 and Blurry vision H53.8 [place] [address] [address] Sep, Right upper quadrant pain R10.11 and Blo od in stool K92.1 [facility] [address] [facility] [id number] [address] [place] [address] Sep, Asymptomatic microscopic hem aturia R31.21 ; Glucose found in urine on examination R81 and BMI 50.0-59.9, adult Z68.43 [place] [address] [address] Sep, Type 2 diabetes mellitus with unspecifie d complications E11.8 [facility] [place] [id number] [address] [place] [address] Aug, Type 2 diabetes mellitus wit h unspecified complications E11.8 ; Benign essential hypertension I10 ; Cough R05 ; Acute bronchitis, unspecified organism J20.9 ; Other viral agents as the cause of diseases classified elsewhere B97.89 and Morbid (severe) obesity due to excess calories E66.01 [facility] [place] [address] [address] [place] [id number] [address] [place] [address] May, Acute seasonal allergic rhin itis, unspecified trigger J30.2 and Candidiasis of penis B37.42 [place] [address] [address] 14 Dec, 2014 [place] [address] [address] Dec, [place] [address] [address] Oct, [place] [address] [address] Oct, [place] [address] [address] Dec, [place] [address] [address] Dec, [place] [address] [address] Dec, [place] [address] [address] Dec, [place] [address] [address] Dec, [facility] [id number] [place] [address] Dec, [facility] [id number] [place] [address] Nov, [facility] [id number] [place] [address] Nov, [facility] [id number] [place] [address] May, [facility] [address] [facility] [id number] [place] [address] May, [facility] [id number] [place] [address] May, [facility] [id number] [place] [address] May, [facility] [id number] [place] [address] May, [facility] [id number] [place] [address] Apr, [facility] [address] [facility] [id number] Mar, [facility] [id number] [place] [address] Mar, [facility] [address] [place] [address] Mar, [facility] [id number] [place] [address] Mar, [facility] [id number] [place] [address] Feb, [facility] [id number] [place] [address] Feb, [facility] [id number] [place] [address] Feb, [facility] [id number] [place] [address] Feb, [facility] [address] [facility] [id number] [place] [address] January, [facility] [id number] [place] [address] January, [facility] [id number] [place] [address] January, [facility] [id number] [place] [address] January, [facility] [id number] [place] [address] January, [facility] [id number] [place] [address] January, [facility] [id number] [place] [address] January, [facility] [id number] [place] [address] January, [facility] [id number] [place] [address] January, [facility] [id number] [place] [address] Dec, [facility] [id number] [place] [address] Dec, [facility] [id number] [place] [address] Dec, [facility] [id number] [place] [address] Dec, [facility] [id number] [place] [address] Dec, [facility] [id number] [place] [address] Dec, [facility] [id number] [place] [address] Dec, [facility] [id number] [place] [address] Nov, [facility] [id number] [place] [address] Nov, [facility] [address] [place] [id number] [place] [address] Nov, [facility] [address] [place] [id number] [place] [address] Oct, [facility] [address] [address] Oct, [facility] [address] [place] [id number] [place] [address] Oct, [facility] [address] [place] [address] [id number] [place] [address] Oct, [facility] [address] [place] [address] [id number] [place] [address] Jul, [facility] [id number] [place] [address] Jun, [facility] [address] [place] [address] [id number] [place] [address] Jun, [facility] [address] [place] [id number] [place] [address] May, IMMUNIZATIONS No Known Immunizations SOCIAL HISTORY [...] History post surgeries Hospitalization History [facility]- Abd pain 09/24/2017
--- OUTSIDE RECORDS SUMMARY | 2019-11-21 01:50 | XMS REPORT ---
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 Active 72450909 Problem Morbid (severe) obesity due to excess calories E66 .01 Active 538122679 Problem BMI 50.0-59.9, adult Z68.43 Active 358419996 Problem Essential hypertension I10 Active 99556608 Problem meterman current use of insulin Z79.4 Active [id number] ALLERGIES No Information ENCOUNTERS Encounter Location Date Diagnosis [facility] [address] [facility] [id number] [address] [place] [address] Nov, Type 2 diabetes mellitus wit h unspecified complications E11.8 [facility] [address] [facility] [id number] [address] [place] [address] Oct, [facility] [address] [facility] [id number] [address] [place] [address] Oct, [facility] [address] [facility] [id number] [address] [place] [address] Oct, [facility] [address] [facility] [id number] [address] [place] [address] Aug, [facility] [address] [facility] [id number] [address] [place] [address] Aug, [facility] [address] [facility] [id number] [address] [place] [address] Aug, Type 2 diabetes mellitus wit h other diabetic neurological complication E11.49 and longterm current use of insulin Z79.4 [facility] [address] [facility] [id number] [address] [place] [phone] 19 Jun, 2018 Gross hematuria R31.0 [facility] [address] [facility] [id number] [address] [place] [phone] 15 Jun, 2018 Essential hypertension I10 [facility] [address] [facility] [id number] [address] [place] [id number] 04 Jun, 2018 [facility] [address] [facility] [id number] [address] [place] [address] Jun, [facility] [address] [facility] [id number] [address] [place] [address] May, [facility] [address] [facility] [id number] [address] [place] [address] May, [facility] [address] [facility] [id number] [address] [place] [address] May, Type 2 diabetes mellitus wit h other diabetic neurological complication E11.49 [facility] [address] [facility] [id number] [address] [place] [address] May, [facility] [address] [facility] [id number] [address] [place] [address] Apr, [facility] [address] [facility] [id number] [address] [place] [address] Apr, [facility] [address] [place] [address] Apr, [facility] [address] [facility] [id number] [address] [place] [address] Apr, Type 2 diabetes mellitus wit h other diabetic neurological complication E11.49 ; Essential hypertension I10 ; Yeast dermatitis of penis B37.49 ; Burning with urination R30.0 and Non-adherence to medical treatment Z91.19 [facility] [address] [facility] [id number] [address] [place] [address] Apr, [facility] [address] [facility] [id number] [address] [place] [address] Feb, [facility] [address] [facility] [id number] [address] [place] [address] Feb, [facility] [address] [place] [id number] [address] [place] [address] January, [facility] [address] [place] [id number] [place] [address] January, [facility] [address] [address] January, Onychomycosis B35.1 ; Callus of foot L84 and Type 2 diabetes mellitus with unspecified complications E11.8 [facility] [address] [place] [id number] [address] [place] [address] January, [facility] [address] [address] January, [facility] [address] [place] [id number] [address] [place] [address] January, [facility] [address] [place] [id number] [address] [place] [address] January, [facility] [address] [place] [id number] [address] [place] [address] January, BMI 50.0-59.9, adult Z68.43 [facility] [address] [place] [id number] [address] [place] [id number] January, [facility] [address] [place] [id number] [address] [place] [address] January, Acute respiratory distress R 06.03 and Hypoxia R09.02 [facility] [address] [facility] [id number] [address] [place] [address] January, [facility] [address] [place] [id number] [address] [place] [address] January, Shortness of breath on exert ion R06.02 and BMI 50.0-59.9, adult Z68.43 [facility] [address] [address] Dec, BMI 50.0-59.9, adult Z68.43 [facility] [address] [place] [id number] [address] [place] [phone] Dec, [facility] [address] [place] [id number] [place] [address] Dec, [facility] [address] [place] [id number] [address] [place] [address] Dec, [place] [address] [address] Nov, [facility] [address] [place] [id number] [place] [address] Nov, [facility] [address] [address] Oct, longterm current use of ins ulin Z79.4 ; Type 2 diabetes mellitus with other diabetic neurological complication E11.49 ; Swelling of both lower extremities M79.89 ; Essential hypertension I10 ; BMI 50.0-59.9, adult Z68.43 and Blurry vision H53.8 [facility] [address] [place] [id number] [address] [place] [address] Sep, Right upper quadrant pain R1 0.11 and Blood in stool K92.1 [facility] [address] [address] Sep, Asymptomatic microscopic hem aturia R31.21 ; Glucose found in urine on examination R81 and BMI 50.0-59.9, adult Z68.43 [facility] [address] [place] [id number] [address] [place] [address] Sep, Type 2 diabetes mellitus wit h unspecified complications E11.8 [facility] [address] [place] [id number] [place] [phone] Aug, Type 2 diabetes mellitus wit h unspecified complications E11.8 ; Benign essential hypertension I10 ; Cough R05 ; Acute bronchitis, unspecified organism J20.9 ; Other viral agents as the cause of diseases classified elsewhere B97.89 and Morbid (severe) obesity due to excess calories E66.01 [facility] [address] [facility] [id number] [address] [place] [address] May, Acute seasonal allergic rhin itis, unspecified trigger J30.2 and Candidiasis of penis B37.42 [facility] [address] [facility] [id number] [address] [place] [phone] 14 Dec, 2014 [facility] [address] [facility] [id number] [place] [address] Dec, [facility] [address] [facility] [id number] [address] [place] [address] Oct, [facility] [address] [place] [id number] [address] [place] [phone] Oct, [facility] [address] [facility] [id number] [address] [place] [phone] Dec, [facility] [address] [facility] [id number] [address] [place] [address] Dec, [facility] [address] [place] [id number] [address] [place] [phone] Dec, [facility] [address] [facility] [id number] [address] [place] [address] Dec, [facility] [address] [facility] [id number] [address] [place] [address] Dec, [facility] [address] [place] [id number] [address] [place] [phone] Dec, [facility] [address] [facility] [id number] [address] [place] [phone] Nov, [facility] [address] [place] [id number] [address] [place] [phone] Nov, [facility] [address] [id number] [address] [place] [address], [place] [address] May, [facility] [address] [id number] [address] [place] [address], [place] [address] May, [facility] [address] [id number] [address] [place] [address], [place] [address] May, [facility] [address] [id number] [address] [place] [address], [place] [address] 17 May, 2013 [facility] [address] [id number] [address] [place] [address], [place] [address] May, [facility] [address] [id number] [address] [place] [address], [place] [address] Apr, [facility] [address] [id number] [id number] Mar, [facility] [address] [id number] [address] [place] [address], [place] [address] Mar, [facility] [address] [id number] [address] [place] [address], [place] [address] Mar, [facility] [address] [id number] [address] [place] [address], [place] [address] Mar, [facility] [address] [id number] [address] [place] [address], [place] [address] Feb, [facility] [address] [id number] [address] [place] [address], [place] [address] Feb, [facility] [address] [id number] [address] [place] [address], [place] [address] Feb, [facility] [address] [id number] [address] [place] [address], [place] [address] Feb, [facility] [address] [id number] [address] [place] [address], [place] [address] January, [facility] [address] [id number] [address] [place] [address], [place] [address] January, [facility] [address] [id number] [address] [place] [address], [place] [address] January, [facility] [address] [id number] [address] [place] [address], [place] [address] January, [facility] [address] [id number] [address] [place] [address], [place] [address] January, [facility] [address] [id number] [address] [place] [address], [place] [address] January, [facility] [address] [id number] [address] [place] [address], [place] [address] January, [facility] [address] [id number] [address] [place] [address], [place] [address] January, [facility] [address] [id number] [address] [place] [address], [place] [address] January, [facility] [address] [id number] [address] [place] [address], [place] [address] Dec, [facility] [address] [id number] [address] [place] [address], [place] [address] Dec, [facility] [address] [id number] [address] [place] [address], [place] [address] Dec, [facility] [address] [id number] [address] [place] [address], [place] [address] Dec, [facility] [address] [id number] [address] [place] [address], [place] [address] Dec, [facility] [address] [id number] [address] [place] [address], [place] [address] Dec, [facility] [address] [id number] [address] [place] [address], [place] [address] Dec, [facility] [address] [id number] [address] [place] [address], [place] [address] Nov, [facility] [address] [id number] [address] [place] [address] Nov, [facility] [address] [id number] [address] [place] [phone] Nov, [facility] [address] [id number] [address] [place] [address] Oct, [facility] [address] [id number] [address] [place] [address] Oct, [facility] [address] [id number] [address] [place] [address] Oct, [facility] [address] [id number] [address] [place] [address] Oct, [facility] [address] [id number] [address] [place] [address] Jul, [facility] [address] [id number] [address] [place] [address] Jun, [facility] [address] [id number] [address] [place] [phone] Jun, [facility] [address] [id number] [address] [place] [address] May, IMMUNIZATIONS No Known Immunizations SOCIAL HISTORY Never Assessed REASON FOR VISIT EMR[facility] PLAN OF CARE VITAL SIGNS MEDICATIONS Medication Instructions Dosage Frequency Start Date End Date Duration S tatus Cymbalta 60 mg take 1 capsules by Oral route 1 time per day Feb, Active metformin 850 mg take 1 tablet (850 m g) by oral route 3 times per day with meals Feb, Active Metoprolol Succinate 25 mg 1 tablet by Oral route 1 ti me per day Feb, Active Oxycodone-Acetaminophen 5-325 mg [address] Oral rout e every 6 hours January, Active Multivitamin by Oral route once daily. Oct, Active Risperdal 1 mg 1 tablet by Oral rou te 1 time per day 1mg in AM 3mg at bedtime. Feb, Active HydrOXYzine HCl 25 mg 1 tablet by Oral route 2 times p er day PRN Feb, Active NovoLog Flexpen 100 unit/mL inject 25 Un its by Subcutaneous route as per insulin sliding scale protocol 3 times per day before meals Feb Active Aspirin 81 mg take 1 tablet (81 mg) by oral route once daily Feb, Active Lantus SoloStar 100 unit/mL (3 mL) take 54 unit by Subcutaneous route 1 time per day Dec, Active Omeprazole 20 mg take 1 capsule (20 m g) by oral route once daily before a meal Feb, Active Ibuprofen 800 mg take 1 tablet (800 m g) by oral route 3 times per day with food May, Active Lisinopril-Hydrochlorothiazide 20-25 mg take 1 tablet by Oral route 2 times per day Feb, Active RESULTS No Results PROCEDURES No Known procedures [...] History post surgeries Hospitalization History [facility]- Abd pain 09/24/2017
--- OUTSIDE RECORDS SUMMARY | 2019-11-21 01:51 | XMS REPORT ---
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 Active 18491289 Problem Type 2 diabetes mellitus with unspecified complications E11.8 Active 42427773 Problem BMI 50.0-59.9, adult Z68.43 Active 019033152 Problem Morbid (severe) obesity due to excess calories E66 .01 Active 887508969 Problem senior living current use of insulin Z79.4 Active 611432775 Problem Essential hypertension I10 Active [id number] ALLERGIES No Information ENCOUNTERS Encounter Location Date Diagnosis [facility] [address] [facility] [id number] [address] [place] [address] Sep, [facility] [address] [facility] [id number] [address] [place] [address] Aug, [facility] [address] [facility] [id number] [address] [place] [address] Aug, Type 2 diabetes mellitus wit h other diabetic neurological complication E11.49 and senior living current use of insulin Z79.4 [facility] [address] [facility] [id number] [address] [place] [address] Jun, Gross hematuria R31.0 [facility] [address] [facility] [id number] [address] [place] [address] 15 Jun, 2018 Essential hypertension I10 [facility] [address] [facility] [id number] [address] [place] [address] Jun, [facility] [address] [facility] [id number] [address] [place] [address] Jun, [facility] [address] [facility] [id number] [address] [place] [address] May, [facility] [address] [facility] [id number] [address] [place] [address] May, [facility] [address] [facility] [id number] [address] [place] [address] May, Type 2 diabetes mellitus wit h other diabetic neurological complication E11.49 [facility] [address] [facility] [id number] [address] [place] [address] May, [facility] [address] [facility] [id number] [address] [place] [address] Apr, [facility] [address] [facility] [id number] [address] [place] [address] Apr, [address] [place] [address] Apr, 18 [facility] [address] [facility] [id number] [address] [place] [address] Apr, Type 2 diabetes mellitus wit h other diabetic neurological complication E11.49 ; Essential hypertension I10 ; Yeast dermatitis of penis B37.49 ; Burning with urination R30.0 and Non-adherence to medical treatment Z91.19 [facility] [address] [facility] [id number] [address] [place] [address] Apr, [facility] [address] [facility] [id number] [address] [place] [address] Feb, [facility] [address] [facility] [id number] [address] [place] [address] Feb, [facility] [address] [facility] [id number] [address] [place] [address] January, [facility] [address] [facility] [id number] [address] [place] [address] January, [facility] [address] [address] January, Onychomycosis B35.1 ; Callus of foot L84 and Type 2 diabetes mellitus with unspecified complications E11.8 [facility] [address] [address] January, [facility] [address] [address] January, [facility] [address] [address] January, [place] [address] [address] January, [place] [address] [address] January, BMI 50.0-59.9, adult Z68.43 [place] [address] [address] January, [place] [address] [address] January, Acute respiratory distress R 06.03 and Hypoxia R09.02 [place] [address] [address] January, [place] [address] [address] January, Shortness of breath on exert ion R06.02 and BMI 50.0-59.9, adult Z68.43 [place] [address] [address] Dec, BMI 50.0-59.9, adult Z68.43 [place] [address] [address] Dec, [place] [address] [address] Dec, [place] [address] [address] Dec, [place] [address] [address] Nov, [place] [address] [address] Nov, [place] [address] [address] Oct, senior living current use of ins ulin Z79.4 ; Type 2 diabetes mellitus with other diabetic neurological complication E11.49 ; Swelling of both lower extremities M79.89 ; Essential hypertension I10 ; BMI 50.0-59.9, adult Z68.43 and Blurry vision H53.[address] [address] Sep, Right upper quadrant pain R1 0.11 and Blood in stool K92.1 [facility] [address] [address] Sep, Asymptomatic microscopic hem aturia R31.21 ; Glucose found in urine on examination R81 and BMI 50.0-59.9, adult Z68.43 [place] [id number] [address] [place] [address] Sep, Type 2 diabetes mellitus wit h unspecified complications E11.8 [facility] [address] [address] Aug, Type 2 diabetes mellitus wit h unspecified complications E11.8 ; Benign essential hypertension I10 ; Cough R05 ; Acute bronchitis, unspecified organism J20.9 ; Other viral agents as the cause of diseases classified elsewhere B97.89 and Morbid (severe) obesity due to excess calories E66.01 [facility] [address] [address] May, Acute seasonal allergic rhin itis, unspecified trigger J30.2 and Candidiasis of penis B37.42 [facility] [address] [id number] [address] [place] [address], [place] [address] 14 Dec, 2014 [facility] [address] [id number] [address] [place] [address], [place] [address] Dec, [facility] [address] [id number] [address] [place] [address], [place] [address] Oct, [facility] [address] [id number] [address] [place] [address], [place] [address] Oct, [facility] [address] [id number] [address] [place] [address], [place] [address] Dec, [facility] [address] [id number] [address] [place] [address], [place] [address] Dec, [facility] [address] [id number] [address] [place] [address], [place] [address] Dec, [facility] [address] [id number] [address] [place] [address], [place] [address] Dec, [facility] [address] [id number] [address] [place] [address], [place] [address] Dec, [facility] [address] [id number] [address] [place] [address], [place] [address] Dec, [facility] [address] [id number] [address] [place] [address], [place] [address] Nov, [facility] [address] [id number] [address] [place] [address] Nov, [facility] [address] [id number] [address] [place] [address], [place] [address] May, [facility] [address] [id number] [address] [place] [address], [place] [address] May, [facility] [address] [id number] [address] [place] [address], [place] [address] May, [facility] [address] [id number] [address] [place] [address], [place] [address] May, [facility] [address] [id number] [address] [place] [address], [place] [address] May, [facility] [address] [id number] [address] [place] [address], [place] [address] Apr, [facility] [address] [id number] [place], [place] [id number] Mar, [facility] [address] [id number] [address] [place] [address], [place] [address] Mar, [facility] [address] [id number] [address] [place] [address], [place] [address] Mar, [facility] [address] [id number] [address] [place] [address], [place] [address] Mar, [facility] [address] [id number] [address] [place] [address], [place] [address] Feb, [facility] [address] [id number] [address] [place] [address], [place] [address] Feb, [facility] [address] [id number] [address] [place] [address], [place] [address] Feb, [facility] [address] [id number] [address] [place] [address], [place] [address] Feb, [facility] [address] [id number] [address] [place] [address], [place] [address] January, [facility] [address] [id number] [address] [place] [address], [place] [address] January, [facility] [address] [id number] [address] [place] [address], [place] [address] January, [facility] [address] [id number] [address] [place] [address], [place] [address] January, [facility] [address] [id number] [address] [place] [address], [place] [address] January, [facility] [address] [id number] [address] [place] [address], [place] [address] January, [facility] [address] [id number] [address] [place] [address], [place] [address] January, [facility] [address] [id number] [address] [place] [address], [place] [address] January, [facility] [address] [id number] [address] [place] [address], [place] [address] January, [facility] [address] [id number] [address] [place] [address], [place] [address] Dec, [facility] [address] [id number] [address] [place] [address], [place] [address] Dec, [facility] [address] [id number] [address] [place] [address], [place] [address] 17 Dec, 2012 [facility] [address] [id number] [address] [place] [address], [place] [address] Dec, [facility] [address] [id number] [address] [place] [address], [place] [address] Dec, [facility] [address] [id number] [address] [place] [address], [place] [address] Dec, [facility] [address] [id number] [address] [place] [address], [place] [address] Dec, [facility] [address] [id number] [address] [place] [address], [place] [address] Nov, [facility] [address] [id number] [address] [place] [address], [place] [address] Nov, [facility] [address] [id number] [address] [place] [address], [place] [address] 14 Nov, 2012 [facility] [address] [id number] [address] [place] [address], [place] [address] 28 Oct, 2012 [facility] [address] [id number] [address] [place] [address], [place] [address] Oct, [facility] [address] [facility] [id number] [address] [place] [address] Oct, [facility] [address] [facility] [id number] [address] [place] [address] Oct, [facility] [address] [facility] [id number] [address] [place] [address] Jul, [facility] [address] [facility] [id number] [address] [place] [address] Jun, [facility] [address] [facility] [id number] [address] [place] [address] Jun, [facility] [address] [facility] [id number] [address] [place] [address] May, IMMUNIZATIONS No Known Immunizations SOCIAL HISTORY Never Assessed REASON FOR VISIT PLAN OF CARE VITAL SIGNS MEDICATIONS Medication Instructions Dosage Frequency Start Date End Date Duration S tatus Atorvastatin Calcium 20 mg Orally Once a day 1 tablet 24h 2017 90 days Active RESULTS No Results PROCEDURES No Known [...] History post surgeries Hospitalization History [facility] [place]- Abd pain 09/24/2017
--- OUTSIDE RECORDS SUMMARY | 2019-11-21 01:51 | XMS REPORT ---
Author Author Walter WYLIE Organization 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 [address] [place] [id number] [address] [place] [id number] 30 Jun, 2018 [facility] [address] [id number] [address] [place] [phone] Jun, Essential hypertension I10 [facility] [address] [facility] [id number] [address] [place] [phone] Jun, [facility] [address] [facility] [id number] [address] [place] [id number] Jun, [facility] [address] [facility] [id number] [address] [place] [address] May, [facility] [address] [id number] [address] [place] [phone] May, [facility] [address] [facility] [id number] [address] [place] [address] May, Type 2 diabetes mellitus wit h other diabetic neurological complication E11.49 [facility] [address] [facility] [id number] [address] [place] [id number] May, [facility] [address] [facility] [id number] [address] [place] [phone] Apr, [facility] [address] [facility] [id number] [address] [place] [phone] Apr, [address] [place] [address] Apr, 18 [facility] [address] [facility] [id number] [address] [place] [address] Apr, Type 2 diabetes mellitus wit h other diabetic neurological complication E11.49 ; Essential hypertension I10 ; Yeast dermatitis of penis B37.49 ; Burning with urination R30.0 and Non-adherence to medical treatment Z91.19 [facility] [address] [facility] [id number] [address] [place] [phone] Apr, [facility] [address] [facility] [id number] [address] [place] [phone] Feb, [facility] [address] [place] [id number] [address] [place] [phone] Feb, [facility] [address] [facility] [id number] [address] [place] [phone] January, [facility] [address] [place] [id number] [address] [place] [phone] January, [facility] [address] [facility] [id number] [address] [place] [phone] January, Onychomycosis B35.1 ; Callus of foot L84 and Type 2 diabetes mellitus with unspecified complications E11.8 [facility] [address] [facility] [id number] [address] [place] [phone] January, [facility] [address] [facility] [id number] [address] [place] [phone] January, [facility] [address] [id number] [address] [place] [phone] January, [facility] [address] [facility] [id number] [address] [place] [phone] January, [facility] [address] [facility] [id number] [address] [place] [phone] January, BMI 50.0-59.9, adult Z68.43 [facility] [address] [facility] [id number] [address] [place] [phone] January, [facility] [address] [facility] [id number] [address] [place] [phone] January, Acute respiratory distress R 06.[address] [facility] [address] [facility] [id number] [address] [place] [phone] January, [facility] [address] [place] [id number] [address] [place] [phone] January, Shortness of breath on exert ion R06.02 and BMI 50.0-59.9, adult Z68.43 [facility] [address] [facility] [id number] [address] [place] [phone] Dec, BMI 50.0-59.9, adult Z68.43 [facility] [address] [facility] [id number] [address] [place] [phone] Dec, [facility] [address] [facility] [id number] [address] [place] [phone] Dec, [facility] [address] [facility] [id number] [address] [place] [phone] Dec, [facility] [address] [facility] [id number] [address] [place] [phone] Nov, [facility] [address] [facility] [id number] [address] [place] [phone] Nov, [facility] [address] [facility] [id number] [address] [place] [phone] Oct, halfway current use of ins ulin Z79.4 ; Type 2 diabetes mellitus with other diabetic neurological complication E11.49 ; Swelling of both lower extremities M79.89 ; Essential hypertension I10 ; BMI 50.0-59.9, adult Z68.43 and Blurry vision H53.8 [place] [address] [id number] Sep, Right upper quadrant pain R1 0.11 and Blood in stool K92.1 [facility] [address] [address] Sep, Asymptomatic microscopic hem aturia R31.21 ; Glucose found in urine on examination R81 and BMI 50.0-59.9, adult Z68.[address] [address] Sep, Type 2 diabetes mellitus wit h unspecified complications E11.[address] [address] Aug, Type 2 diabetes mellitus wit h unspecified complications E11.8 ; Benign essential hypertension I10 ; Cough R05 ; Acute bronchitis, unspecified organism J20.9 ; Other viral agents as the cause of diseases classified elsewhere B97.89 and Morbid (severe) obesity due to excess calories E66.[address] [address] May, Acute seasonal allergic rhin itis, unspecified trigger J30.2 and Candidiasis of penis B37.[address] [phone] Dec, [address] [address] Dec, [place] [address] [address] Oct, [place] [address] [id number] Oct, [facility] [address] [id number] [address] [place] [address], [place] [address] Dec, [facility] [address] [id number] [address] [place] [address], [place] [address] Dec, [facility] [address] [id number] [address] [place] [address], [place] [address] Dec, [facility] [address] [id number] [address] [place] [address], [place] [address] Dec, [facility] [address] [id number] [address] [place] [address], [place] [address] Dec, [facility] [address] [id number] [address] [place] [address], [place] [address] Dec, [facility] [address] [id number] [address] [place] [address], [place] [address] Nov, [facility] [address] [id number] [address] [place] [address], [place] [address] Nov, [facility] [address] [id number] [address] [place] [address], [place] [address] May, [facility] [address] [id number] [address] [place] [address], [place] [address] May, [facility] [address] [id number] [address] [place] [phone] May, [facility] [address] [id number] [address] [place] [phone] 17 May, 2013 [facility] [address] [id number] [address] [place] [address], [place] [address] 12 May, 2013 [facility] [address] [id number] [address] [place] [address], [place] [address] Apr, [facility] [address] [id number] [place] [id number] Mar, [facility] [address] [id number] [address] [place] [address], [place] [address] Mar, [facility] [address] [id number] [address] [place] [address], [place] [address] Mar, [facility] [address] [id number] [address] [place] [address], [place] [address] Mar, [facility] [address] [id number] [address] [place] [address], [place] [address] Feb, [facility] [address] [id number] [address] [place] [address], [place] [address] Feb, [facility] [address] [id number] [address] [place] [address], [place] [address] Feb, [facility] [address] [id number] [address] [place] [address], [place] [address] Feb, [facility] [address] [id number] [address] [place] [address], [place] [address] January, [facility] [address] [id number] [address] [place] [address], [place] [address] January, [facility] [address] [id number] [address] [place] [address], [place] [address] January, [facility] [address] [id number] [address] [place] [address], [place] [address] January, [facility] [address] [id number] [address] [place] [address], [place] [address] January, [facility] [address] [id number] [address] [place] [address], [place] [address] January, [facility] [address] [id number] [address] [place] [address], [place] [address] January, [facility] [address] [id number] [address] [place] [address], [place] [address] January, [facility] [address] [id number] [address] [place] [address], [place] [address] January, [facility] [address] [id number] [address] [place] [address], [place] [address] 23 Dec, 2012 [facility] [address] [id number] [address] [place] [address], [place] [address] 18 Dec, 2012 [facility] [address] [id number] [address] [place] [address], [place] [address] Dec, [facility] [address] [id number] [address] [place] [address], [place] [address] Dec, [facility] [address] [id number] [address] [place] [address], [place] [address] Dec, [facility] [address] [id number] [address] [place] [address], [place] [address] Dec, [facility] [address] [id number] [address] [place] [address], [place] [address] Dec, [facility] [address] [id number] [address] [place] [address], [place] [address] Nov, [facility] [address] [id number] [address] [place] [address], [place] [address] Nov, [facility] [address] [id number] [address] [place] [address], [place] [address] 14 Nov, 2012 [facility] [address] [id number] [address] [place] [address], [place] [address] 28 Oct, 2012 [facility] [address] [id number] [address] [place] [address], [place] [address] Oct, [facility] [address] [id number] [address] [place] [address], [place] [address] Oct, [facility] [address] [id number] [address] [place] [address], [place] [address] 05 Oct, 2012 [facility] [address] [id number] [address] [place] [address], [place] [address] 16 Jul, 2010 [facility] [address] [id number] [address] [place] [id number] [address] Jun, [address] [facility] [address] [facility] [id number] [address] [place] [phone] Jun, [facility] [address] [facility] [id number] [address] [place] [phone] 13 May, 2010 IMMUNIZATIONS No Known Immunizations SOCIAL HISTORY Never Assessed REASON FOR VISIT Medication refill PLAN OF CARE VITAL SIGNS MEDICATIONS Medication Instructions Dosage Frequency Start Date End Date Duration S tatus Lasix 40 mg Orally Once a day 1 tablet 24h 30 days A ctive RESULTS No Results PROCEDURES No Known procedures [...] History post surgeries Hospitalization History [facility]- Abd pain 09/24/2017
--- OUTSIDE RECORDS SUMMARY | 2019-11-21 01:51 | XMS REPORT ---
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 Active 32295191 Problem Type 2 diabetes mellitus with unspecified complications E11.8 Active 60317183 Problem BMI 50.0-59.9, adult Z68.43 Active 928008031 Problem Morbid (severe) obesity due to excess calories E66 .01 Active 523828871 Problem intermediate current use of insulin Z79.4 Active 426622792 Problem Essential hypertension I10 Active [id number] ALLERGIES No Information ENCOUNTERS Encounter Location Date Diagnosis [facility] [address] [facility] [id number] [address] [place] [address] Jun, [facility] [address] [facility] [id number] [address] [place] [address] Jun, [facility] [address] [facility] [id number] [address] [place] [address] Jun, [facility] [address] [facility] [id number] [address] [place] [address] May, [facility] [address] [facility] [id number] [address] [place] [address] May, [facility] [address] [facility] [id number] [address] [place] [address] May, Type 2 diabetes mellitus wit h other diabetic neurological complication E11.49 [facility] [address] [facility] [id number] [address] [place] [address] May, [facility] [address] [facility] [id number] [address] [place] [address] Apr, [facility] [address] [facility] [id number] [address] [place] [address] Apr, [facility] [address] [place] [address] Apr, [facility] [address] [facility] [id number] [address] [place] [address] Apr, Type 2 diabetes mellitus wit h other diabetic neurological complication E11.49 ; Essential hypertension I10 ; Yeast dermatitis of penis B37.49 ; Burning with urination R30.0 and Non-adherence to medical treatment Z91.19 [facility] [address] [facility] [id number] [address] [place] [address] Apr, [facility] [address] [facility] [id number] [address] [place] [address] Feb, [facility] [address] [facility] [id number] [address] [place] [address] Feb, [facility] [address] [facility] [id number] [address] [place] [address] January, [facility] [address] [facility] [id number] [address] [place] [address] January, [facility] [address] [facility] [id number] [address] [place] [address] January, Onychomycosis B35.1 ; Callus of foot L84 and Type 2 diabetes mellitus with unspecified complications E11.8 [facility] [address] [facility] [id number] [address] [place] [address] January, [facility] [address] [facility] [id number] [address] [place] [address] January, [facility] [address] [facility] [id number] [address] [place] [address] January, [facility] [address] [place] [id number] [address] [place] [address] January, [facility] [address] [address] January, BMI 50.0-59.9, adult Z68.43 [facility] [address] [address] January, [facility] [address] [address] January, Acute respiratory distress R 06.03 and Hypoxia R09.02 [facility] [address] [address] January, [facility] [address] [address] January, Shortness of breath on exert ion R06.02 and BMI 50.0-59.9, adult Z68.43 [facility] [address] [address] Dec, BMI 50.0-59.9, adult Z68.43 [facility] [address] [address] Dec, [facility] [address] [address] Dec, [facility] [address] [address] Dec, [facility] [address] [address] Nov, [facility] [address] [address] Nov, [facility] [address] [address] Oct, intermediate current use of ins ulin Z79.4 ; Type 2 diabetes mellitus with other diabetic neurological complication E11.49 ; Swelling of both lower extremities M79.89 ; Essential hypertension I10 ; BMI 50.0-59.9, adult Z68.43 and Blurry vision H53.8 [place] [address] [address] Sep, Right upper quadrant pain R1 0.11 and Blood in stool K92.1 [facility] [address] [address] Sep, Asymptomatic microscopic hem aturia R31.21 ; Glucose found in urine on examination R81 and BMI 50.0-59.9, adult Z68.[address] [address] Sep, Type 2 diabetes mellitus wit h unspecified complications E11.[address] [address] Aug, Type 2 diabetes mellitus wit h unspecified complications E11.8 ; Benign essential hypertension I10 ; Cough R05 ; Acute bronchitis, unspecified organism J20.9 ; Other viral agents as the cause of diseases classified elsewhere B97.89 and Morbid (severe) obesity due to excess calories E66.01 [facility] [place] [address] [address] May, Acute seasonal allergic rhin itis, unspecified trigger J30.2 and Candidiasis of penis B37.[address] [address] Dec, [place] [address] [address] Dec, [place] [address] [address] Oct, [place] [address] [address] Oct, [address] [address] Dec, [facility] [address] [id number] [address] [place] [address], [place] [address] Dec, [facility] [address] [id number] [address] [place] [address], [place] [address] Dec, [facility] [address] [id number] [address] [place] [address], [place] [address] Dec, [facility] [address] [id number] [address] [place] [address], [place] [address] Dec, [facility] [address] [id number] [address] [place] [address], [place] [address] Dec, [facility] [address] [id number] [address] [place] [address], [place] [address] Nov, [facility] [address] [id number] [address] [place] [address], [place] [address] Nov, [facility] [address] [id number] [address] [place] [address], [place] [address] May, [facility] [address] [id number] [address] [place] [address], [place] [address] May, [facility] [address] [id number] [address] [place] [address], [place] [address] May, [facility] [address] [id number] [address] [place] [address], [place] [address] 17 May, 2013 [facility] [address] [id number] [address] [place] [address], [place] [address] 12 May, 2013 [facility] [address] [id number] [address] [place] [address], [place] [address] Apr, [facility] [address] [id number] [id number] Mar, [facility] [address] [id number] [address] [place] [address], [place] [address] Mar, [facility] [address] [id number] [address] [place] [address], [place] [address] Mar, [facility] [address] [id number] [address] [place] [address], [place] [address] Mar, [facility] [address] [id number] [address] [place] [address], [place] [address] Feb, [facility] [address] [id number] [address] [place] [address], [place] [address] Feb, [facility] [address] [id number] [address] [place] [address], [place] [address] Feb, [facility] [address] [id number] [address] [place] [address], [place] [address] Feb, [facility] [address] [id number] [address] [place] [address], [place] [address] January, [facility] [address] [id number] [address] [place] [address], [place] [address] January, [facility] [address] [id number] [address] [place] [address], [place] [address] January, [facility] [address] [id number] [address] [place] [address], [place] [address] January, [facility] [address] [id number] [address] [place] [address], [place] [address] January, [facility] [address] [id number] [address] [place] [address], [place] [address] January, [facility] [address] [id number] [address] [place] [address], [place] [address] January, [facility] [address] [id number] [address] [place] [address], [place] [address] January, [facility] [address] [id number] [address] [place] [address], [place] [address] January, [facility] [address] [id number] [address] [place] [address], [place] [address] Dec, [facility] [address] [id number] [address] [place] [address], [place] [address] 18 Dec, 2012 [facility] [address] [id number] [address] [place] [address], [place] [address] 17 Dec, 2012 [facility] [address] [id number] [address] [place] [address], [place] [address] 16 Dec, 2012 [facility] [address] [id number] [address] [place] [address], [place] [address] 16 Dec, 2012 [facility] [address] [id number] [address] [place] [address], [place] [address] 11 Dec, 2012 [facility] [address] [id number] [address] [place] [address], [place] [address] 02 Dec, 2012 [facility] [address] [id number] [address] [place] [address], [place] [address] 26 Nov, 2012 [facility] [address] [id number] [address] [place] [address], [place] [address] 21 Nov, 2012 [facility] [address] [id number] [address] [place] [address], [place] [address] 14 Nov, 2012 [facility] [address] [id number] [address] [place] [address], [place] [address] 28 Oct, 2012 [facility] [address] [id number] [address] [place] [address], [place] [address] 13 Oct, 2012 [facility] [address] [id number] [address] [place] [address], [place] [address] 05 Oct, 2012 [facility] [address] [id number] [address] [place] [address], [place] [address] 05 Oct, 2012 [facility] [address] [id number] [address] [place] [address], [place] [address] 16 Jul, 2010 [facility] [address] [id number] [address] [place] [address], [place] [address] 14 Jun, 2010 [facility] [address] [id number] [address] [place] [address] [address] Jun, [facility] [address] [facility] [id number] [address] [place] [address] May, IMMUNIZATIONS No Known Immunizations SOCIAL HISTORY Never Assessed REASON FOR VISIT Prior Authorization- [employer] PLAN OF CARE VITAL SIGNS MEDICATIONS Unknown [...] History post surgeries Hospitalization History [facility]- Abd pain 09/24/2017
--- OUTSIDE RECORDS SUMMARY | 2019-11-21 01:51 | XMS REPORT ---
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 Active 16098542 Problem Type 2 diabetes mellitus with unspecified complications E11.8 Active 15016668 Problem BMI 50.0-59.9, adult Z68.43 Active 116404168 Problem Morbid (severe) obesity due to excess calories E66 .01 Active 468642170 Problem intermediate current use of insulin Z79.4 Active 525166260 Problem Essential hypertension I10 Active [id number] ALLERGIES No Information ENCOUNTERS Encounter Location Date Diagnosis [facility] [address] [facility] [id number] [address] [place] [phone] Jun, [facility] [address] [facility] [id number] [address] [place] [phone] Jun, [facility] [address] [facility] [id number] [address] [place] [id number] Jun, [facility] [address] [facility] [id number] [address] [place] [id number] Jun, [facility] [address] [facility] [id number] [address] [place] [phone] May, [facility] [address] [facility] [id number] [address] [place] [phone] May, [facility] [address] [facility] [id number] [address] [place] [id number] May, Type 2 diabetes mellitus wit h other diabetic neurological complication E11.49 [facility] [address] [facility] [id number] [address] [place] [id number] 14 May, 2018 [facility] [address] [facility] [id number] [address] [place] [id number] Apr, [facility] [address] [facility] [id number] [address] [place] [id number] Apr, [address] [place] [address] Apr, [facility] [address] [facility] [id number] [address] [place] [id number] Apr, Type 2 diabetes mellitus wit h other diabetic neurological complication E11.49 ; Essential hypertension I10 ; Yeast dermatitis of penis B37.49 ; Burning with urination R30.0 and Non-adherence to medical treatment Z91.19 [place] [address] [facility] [id number] [address] [place] [id number] Apr, [facility] [address] [facility] [id number] [address] [place] [phone] Feb, [facility] [address] [facility] [id number] [address] [place] [id number] Feb, [facility] [address] [facility] [id number] [address] [place] [phone] January, [facility] [address] [facility] [id number] [address] [place] [id number] January, [facility] [address] [facility] [id number] [address] [place] [id number] January, Onychomycosis B35.1 ; Callus of foot L84 and Type 2 diabetes mellitus with unspecified complications E11.8 [facility] [address] [facility] [id number] [address] [place] [phone] January, [facility] [address] [facility] [id number] [address] [place] [phone] January, [facility] [address] [facility] [id number] [address] [place] [id number] January, [facility] [address] [facility] [id number] [address] [place] [phone] January, [facility] [address] [facility] [id number] [address] [place] [id number] January, BMI 50.0-59.9, adult Z68.43 [facility] [address] [place] [id number] [place] [address] January, [facility] [address] [facility] [id number] [address] [place] [id number] January, Acute respiratory distress R 06.03 and Hypoxia R09.02 [facility] [address] [facility] [id number] [address] [place] [address] January, [facility] [address] [place] [id number] [place] [address] January, Shortness of breath on exert ion R06.02 and BMI 50.0-59.9, adult Z68.43 [facility] [address] [facility] [id number] [address] [place] [id number] Dec, BMI 50.0-59.9, adult Z68.43 [facility] [address] [facility] [id number] [address] [place] [id number] Dec, [facility] [address] [facility] [id number] [address] [place] [phone] Dec, [facility] [address] [facility] [id number] [address] [place] [phone] Dec, [facility] [address] [place] [id number] [address] [place] [phone] Nov, [facility] [address] [facility] [id number] [address] [place] [id number] Nov, [facility] [address] [facility] [id number] [address] [place] [id number] Oct, intermediate current use of ins ulin Z79.4 ; Type 2 diabetes mellitus with other diabetic neurological complication E11.49 ; Swelling of both lower extremities M79.89 ; Essential hypertension I10 ; BMI 50.0-59.9, adult Z68.43 and Blurry vision H53.[address] [address] Sep, Right upper quadrant pain R1 0.11 and Blood in stool K92.1 [facility] [address] [address] Sep, Asymptomatic microscopic hem aturia R31.21 ; Glucose found in urine on examination R81 and BMI 50.0-59.9, adult Z68.[address] [address] Sep, Type 2 diabetes mellitus wit h unspecified complications E11.[address] [address] Aug, Type 2 diabetes mellitus wit h unspecified complications E11.8 ; Benign essential hypertension I10 ; Cough R05 ; Acute bronchitis, unspecified organism J20.9 ; Other viral agents as the cause of diseases classified elsewhere B97.89 and Morbid (severe) obesity due to excess calories E66.[address] [address] May, Acute seasonal allergic rhin itis, unspecified trigger J30.2 and Candidiasis of penis B37.[address] [address] Dec, [address] [address] Dec, [place] [address] [address] Oct, [address] [address] Oct, [facility] [address] [id number] [address] [place] [address], [place] [address] Dec, [facility] [address] [id number] [address] [place] [address], [place] [address] Dec, [facility] [address] [id number] [address] [place] [address], [place] [address] Dec, [facility] [address] [id number] [address] [place] [address], [place] [address] Dec, [facility] [address] [id number] [address] [place] [address], [place] [address] Dec, [facility] [address] [id number] [address] [place] [address], [place] [address] Dec, [facility] [address] [id number] [address] [place] [address], [place] [address] Nov, [facility] [address] [id number] [address] [place] [address], [place] [address] Nov, [facility] [address] [id number] [address] [place] [address], [place] [address] May, [facility] [address] [id number] [address] [place] [address], [place] [address] May, [facility] [address] [id number] [address] [place] [address], [place] [address] May, [facility] [address] [id number] [address] [place] [address], [place] [address] 17 May, 2013 [facility] [address] [id number] [address] [place] [address], [place] [address] 12 May, 2013 [facility] [address] [id number] [address] [place] [address], [place] [address] Apr, [facility] [address] [id number] [id number] Mar, [facility] [address] [id number] [address] [place] [address], [place] [address] Mar, [facility] [address] [id number] [address] [place] [address], [place] [address] Mar, [facility] [address] [id number] [address] [place] [address], [place] [address] Mar, [facility] [address] [id number] [address] [place] [address], [place] [address] Feb, [facility] [address] [id number] [address] [place] [address], [place] [address] Feb, [facility] [address] [id number] [address] [place] [address], [place] [address] Feb, [facility] [address] [id number] [address] [place] [address], [place] [address] Feb, [facility] [address] [id number] [address] [place] [address], [place] [address] January, [facility] [address] [id number] [address] [place] [address], [place] [address] January, [facility] [address] [id number] [address] [place] [address], [place] [address] January, [facility] [address] [id number] [address] [place] [address], [place] [address] January, [facility] [address] [id number] [address] [place] [address], [place] [address] January, [facility] [address] [id number] [address] [place] [address], [place] [address] January, [facility] [address] [id number] [address] [place] [address], [place] [address] January, [facility] [address] [id number] [address] [place] [address], [place] [address] January, [facility] [address] [id number] [address] [place] [address], [place] [address] January, [facility] [address] [id number] [address] [place] [address], [place] [address] 23 Dec, 2012 [facility] [address] [id number] [address] [place] [address], [place] [address] 18 Dec, 2012 [facility] [address] [id number] [address] [place] [address], [place] [address] 17 Dec, 2012 [facility] [address] [id number] [address] [place] [address], [place] [address] 16 Dec, 2012 [facility] [address] [id number] [address] [place] [address], [place] [address] 16 Dec, 2012 [facility] [address] [id number] [address] [place] [address], [place] [address] 11 Dec, 2012 [facility] [address] [id number] [address] [place] [address], [place] [address] 02 Dec, 2012 [facility] [address] [id number] [address] [place] [address], [place] [address] 26 Nov, 2012 [facility] [address] [id number] [address] [place] [address], [place] [address] 21 Nov, 2012 [facility] [address] [id number] [address] [place] [address], [place] [address] 14 Nov, 2012 [facility] [address] [id number] [address] [place] [address], [place] [address] 28 Oct, 2012 [facility] [address] [id number] [address] [place] [address], [place] [address] 13 Oct, 2012 [facility] [address] [id number] [address] [place] [address], [place] [address] 05 Oct, 2012 [facility] [address] [id number] [address] [place] [address], [place] [address] 05 Oct, 2012 [facility] [address] [id number] [address] [place] [address], [place] [address] 16 Jul, 2010 [facility] [address] [id number] [address] [place], [place] [address] [address] 14 Jun, 2010 [facility] [address] [facility] [id number] [address] [place] [id number] 12 Jun, 2010 [facility] [address] [facility] [id number] [address] [place] [id number] 13 May, 2010 IMMUNIZATIONS No Known Immunizations SOCIAL HISTORY Never Assessed REASON FOR VISIT med update PLAN OF CARE VITAL SIGNS MEDICATIONS Medication Instructions Dosage Frequency Start Date End Date Duration S tatus NovoLog 100 UNIT/ML Subcutaneous before meals. 50 units Active RESULTS No Results PROCEDURES No Known [...] History post surgeries Hospitalization History [facility]- Abd pain 09/24/2017
--- OUTSIDE RECORDS SUMMARY | 2019-11-21 01:51 | XMS REPORT ---
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 Active 19637242 Problem Type 2 diabetes mellitus with unspecified complications E11.8 Active 64350395 Problem BMI 50.0-59.9, adult Z68.43 Active 577201560 Problem Morbid (severe) obesity due to excess calories E66 .01 Active 442432630 Problem intermediate current use of insulin Z79.4 Active 986377698 Problem Essential hypertension I10 Active 19925050 ALLERGIES No Information ENCOUNTERS Encounter Location Date Diagnosis [facility] [address] [facility] [id number] [address] [place] [phone] Jun, [facility] [address] [facility] [id number] [address] [place] [phone] Jun, [facility] [address] [facility] [id number] [address] [place] [phone] Jun, [facility] [address] [facility] [id number] [address] [place] [address] Jun, [facility] [address] [facility] [id number] [address] [place] [phone] May, [facility] [address] [facility] [id number] [address] [place] [phone] May, [facility] [address] [facility] [id number] [address] [place] [phone] May, Type 2 diabetes mellitus wit h other diabetic neurological complication E11.49 [facility] [address] [facility] [id number] [address] [place] [phone] 14 May, 2018 [facility] [address] [facility] [id number] [address] [place] [phone] Apr, [facility] [address] [facility] [id number] [address] [place] [id number] Apr, [address] [place] [address] Apr, [facility] [address] [facility] [id number] [address] [place] [phone] Apr, Type 2 diabetes mellitus wit h other diabetic neurological complication E11.49 ; Essential hypertension I10 ; Yeast dermatitis of penis B37.49 ; Burning with urination R30.0 and Non-adherence to medical treatment Z91.19 [place] [address] [facility] [id number] [address] [place] [phone] Apr, [facility] [address] [facility] [id number] [address] [place] [phone] Feb, [facility] [address] [facility] [id number] [address] [place] [phone] Feb, [facility] [address] [facility] [id number] [address] [place] [phone] January, [facility] [address] [facility] [id number] [address] [place] [phone] January, [facility] [address] [facility] [id number] [address] [place] [phone] January, Onychomycosis B35.1 ; Callus of foot L84 and Type 2 diabetes mellitus with unspecified complications E11.8 [facility] [address] [facility] [id number] [address] [place] [phone] January, [facility] [address] [facility] [id number] [address] [place] [phone] January, [facility] [address] [facility] [id number] [address] [place] [phone] January, [facility] [address] [facility] [id number] [address] [place] [phone] January, [facility] [address] [facility] [id number] [address] [place] [phone] January, BMI 50.0-59.9, adult Z68.43 [facility] [address] [place] [id number] [place] [phone] January, [facility] [address] [facility] [id number] [address] [place] [phone] January, Acute respiratory distress R 06.03 and Hypoxia R09.02 [facility] [address] [facility] [id number] [address] [place] [phone] January, [facility] [address] [place] [id number] [place] [phone] January, Shortness of breath on exert ion R06.02 and BMI 50.0-59.9, adult Z68.43 [facility] [address] [facility] [id number] [address] [place] [phone] Dec, BMI 50.0-59.9, adult Z68.43 [facility] [address] [facility] [id number] [address] [place] [phone] Dec, [facility] [address] [facility] [id number] [address] [place] [phone] Dec, [facility] [address] [facility] [id number] [address] [place] [phone] Dec, [facility] [address] [place] [id number] [address] [place] [phone] Nov, [facility] [address] [facility] [id number] [address] [place] [phone] Nov, [facility] [address] [facility] [id number] [address] [place] [phone] Oct, intermediate current use of ins ulin Z79.4 ; Type 2 diabetes mellitus with other diabetic neurological complication E11.49 ; Swelling of both lower extremities M79.89 ; Essential hypertension I10 ; BMI 50.0-59.9, adult Z68.43 and Blurry vision H53.[address] [address] Sep, Right upper quadrant pain R1 0.11 and Blood in stool K92.1 [facility] [address] [address] Sep, Asymptomatic microscopic hem aturia R31.21 ; Glucose found in urine on examination R81 and BMI 50.0-59.9, adult Z68.[address] [address] Sep, Type 2 diabetes mellitus wit h unspecified complications E11.[address] [address] Aug, Type 2 diabetes mellitus wit h unspecified complications E11.8 ; Benign essential hypertension I10 ; Cough R05 ; Acute bronchitis, unspecified organism J20.9 ; Other viral agents as the cause of diseases classified elsewhere B97.89 and Morbid (severe) obesity due to excess calories E66.[address] [address] May, Acute seasonal allergic rhin itis, unspecified trigger J30.2 and Candidiasis of penis B37.[address] [address] Dec, [address] [address] Dec, [place] [address] [address] Oct, [address] [address] Oct, [facility] [address] [id number] [address] [place] [address], [place] [address] Dec, [facility] [address] [id number] [address] [place] [address], [place] [address] Dec, [facility] [address] [id number] [address] [place] [address], [place] [address] Dec, [facility] [address] [id number] [address] [place] [address], [place] [address] Dec, [facility] [address] [id number] [address] [place] [address], [place] [address] Dec, [facility] [address] [id number] [address] [place] [address], [place] [address] Dec, [facility] [address] [id number] [address] [place] [address], [place] [address] Nov, [facility] [address] [id number] [address] [place] [address], [place] [address] Nov, [facility] [address] [id number] [address] [place] [address], [place] [address] May, [facility] [address] [id number] [address] [place] [address], [place] [address] May, [facility] [address] [id number] [address] [place] [address], [place] [address] May, [facility] [address] [id number] [address] [place] [address], [place] [address] 17 May, 2013 [facility] [address] [id number] [address] [place] [address], [place] [address] 12 May, 2013 [facility] [address] [id number] [address] [place] [address], [place] [address] Apr, [facility] [address] [id number] [place] [id number] Mar, [facility] [address] [id number] [address] [place] [address], [place] [address] Mar, [facility] [address] [id number] [address] [place] [address], [place] [address] Mar, [facility] [address] [id number] [address] [place] [address], [place] [address] Mar, [facility] [address] [id number] [address] [place] [address], [place] [address] Feb, [facility] [address] [id number] [address] [place] [address], [place] [address] Feb, [facility] [address] [id number] [address] [place] [address], [place] [address] Feb, [facility] [address] [id number] [address] [place] [address], [place] [address] Feb, [facility] [address] [id number] [address] [place] [address], [place] [address] January, [facility] [address] [id number] [address] [place] [address], [place] [address] January, [facility] [address] [id number] [address] [place] [address], [place] [address] January, [facility] [address] [id number] [address] [place] [address], [place] [address] January, [facility] [address] [id number] [address] [place] [address], [place] [address] January, [facility] [address] [id number] [address] [place] [address], [place] [address] January, [facility] [address] [id number] [address] [place] [address], [place] [address] January, [facility] [address] [id number] [address] [place] [address], [place] [address] January, [facility] [address] [id number] [address] [place] [address], [place] [address] January, [facility] [address] [id number] [address] [place] [address], [place] [address] 23 Dec, 2012 [facility] [address] [id number] [address] [place] [address], [place] [address] 18 Dec, 2012 [facility] [address] [id number] [address] [place] [address], [place] [address] 17 Dec, 2012 [facility] [address] [id number] [address] [place] [address], [place] [address] 16 Dec, 2012 [facility] [address] [id number] [address] [place] [address], [place] [address] 16 Dec, 2012 [facility] [address] [id number] [address] [place] [address], [place] [address] 11 Dec, 2012 [facility] [address] [id number] [address] [place] [address], [place] [address] 02 Dec, 2012 [facility] [address] [id number] [address] [place] [address], [place] [address] 26 Nov, 2012 [facility] [address] [id number] [address] [place] [address], [place] [address] 21 Nov, 2012 [facility] [address] [id number] [address] [place] [address], [place] [address] 14 Nov, 2012 [facility] [address] [id number] [address] [place] [address], [place] [address] 28 Oct, 2012 [facility] [address] [id number] [address] [place] [address], [place] [address] 13 Oct, 2012 [facility] [address] [id number] [address] [place] [address], [place] [address] 05 Oct, 2012 [facility] [address] [id number] [address] [place] [address], [place] [address] 05 Oct, 2012 [facility] [address] [id number] [address] [place] [address], [place] [address] 16 Jul, 2010 [facility] [address] [id number] [address] [place] [address] [address] 14 Jun, 2010 [facility] [address] [facility] [id number] [address] [place] [phone] 12 Jun, 2010 [facility] [address] [facility] [id number] [address] [place] [id number] 13 May, 2010 IMMUNIZATIONS No Known Immunizations SOCIAL HISTORY Never Assessed REASON FOR VISIT [employer] PLAN OF CARE VITAL SIGNS MEDICATIONS Unknown [...] History post surgeries Hospitalization History [facility]- Abd pain 09/24/2017
--- OUTSIDE RECORDS SUMMARY | 2019-11-21 01:51 | XMS REPORT ---
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 [id number] [address] [place] [address] Aug, Type 2 diabetes mellitus wit h other diabetic neurological complication E11.49 and senior living current use of insulin Z79.4 [facility] [place] [address] [facility] [id number] [address] [place] [address] Jun, Gross hematuria R31.0 [facility] [place] [address] [facility] [id number] [address] [place] [address] Jun, Essential hypertension I10 [facility] [place] [address] [facility] [id number] [address] [place] [address] Jun, [facility] [place] [address] [facility] [id number] [address] [place] [phone] Jun, [facility] [place] [address] [facility] [id number] [address] [place] [address] May, [facility] [place] [address] [facility] [id number] [address] [place] [address] May, [facility] [place] [address] [place] [address] May, Type 2 diabetes mellitus wit h other diabetic neurological complication E11.49 [facility] [place] [address] [place] [id number] [address] [place] [address] May, [facility] [place] [address] [place] [id number] [address] [place] [address] Apr, [facility] [place] [address] [place] [id number] [address] [place] [address] Apr, [address] [place] [address] Apr, [place] [address] [address] Apr, Type 2 diabetes mellitus wit h other diabetic neurological complication E11.49 ; Essential hypertension I10 ; Yeast dermatitis of penis B37.49 ; Burning with urination R30.0 and Non-adherence to medical treatment Z91.19 [place] [address] [place] [id number] [address] [place] [address] Apr, [facility] [place] [address] [place] [id number] [address] [place] [address] Feb, [place] [address] [place] [address] Feb, [facility] [place] [address] [place] [id number] [address] [place] [address] January, [place] [address] [address] January, [facility] [place] [address] [place] [id number] [address] [place] [phone] January, Onychomycosis B35.1 ; Callus of foot L84 and Type 2 diabetes mellitus with unspecified complications E11.8 [place] [address] [place] [address] [place] [address] January, [facility] [place] [address] [facility] [id number] [address] [place] [address] January, [facility] [place] [address] [facility] [id number] [address] [place] [address] January, [facility] [place] [address] [place] [id number] [address] [place] [address] January, [facility] [place] [address] [facility] [id number] [address] [place] [address] January, BMI 50.0-59.9, adult Z68.43 [facility] [place] [address] [place] [id number] [place] [phone] January, [facility] [place] [address] [place] [id number] [place] [address] January, Acute respiratory distress R 06.03 and Hypoxia R09.02 [facility] [place] [address] [place] [id number] [place] [address] January, [facility] [place] [address] [address] January, Shortness of breath on exert ion R06.02 and BMI 50.0-59.9, adult Z68.43 [facility] [place] [address] [place] [id number] [address] [place] [address] Dec, BMI 50.0-59.9, adult Z68.43 [facility] [place] [address] [facility] [id number] [address] [place] [address] Dec, [facility] [place] [address] [place] [id number] [place] [phone] Dec, [facility] [place] [address] [place] [id number] [address] [place] [address] Dec, [facility] [place] [address] [place] [id number] [address] [place] [address] Nov, [place] [address] [address] Nov, [place] [address] [address] Oct, senior living current use of ins ulin Z79.4 ; Type 2 diabetes mellitus with other diabetic neurological complication E11.49 ; Swelling of both lower extremities M79.89 ; Essential hypertension I10 ; BMI 50.0-59.9, adult Z68.43 and Blurry vision H53.[address] [address] Sep, Right upper quadrant pain R1 0.11 and Blood in stool K92.1 [facility] [address] [address] Sep, Asymptomatic microscopic hem aturia R31.21 ; Glucose found in urine on examination R81 and BMI 50.0-59.9, adult Z68.43 [place] [address] [address] Sep, Type 2 diabetes mellitus wit h unspecified complications E11.8 [facility] [address] [address] Aug, Type 2 diabetes mellitus wit h unspecified complications E11.8 ; Benign essential hypertension I10 ; Cough R05 ; Acute bronchitis, unspecified organism J20.9 ; Other viral agents as the cause of diseases classified elsewhere B97.89 and Morbid (severe) obesity due to excess calories E66.01 [facility] [address] [address] May, Acute seasonal allergic rhin itis, unspecified trigger J30.2 and Candidiasis of penis B37.[address] [address] Dec, [address] [address] Dec, [facility] [address] [id number] [address] [place] [address], [place] [address] Oct, [facility] [address] [id number] [address] [place] [address], [place] [address] Oct, [facility] [address] [id number] [address] [place] [address], [place] [address] Dec, [facility] [address] [id number] [address] [place] [address], [place] [address] Dec, [facility] [address] [id number] [address] [place] [address], [place] [address] Dec, [facility] [address] [id number] [address] [place] [address], [place] [address] Dec, [facility] [address] [id number] [address] [place] [address], [place] [address] Dec, [facility] [address] [id number] [address] [place] [address], [place] [address] Dec, [facility] [address] [id number] [address] [place] [address], [place] [address] Nov, [facility] [address] [id number] [address] [place] [address], [place] [address] Nov, [facility] [address] [id number] [address] [place] [address], [place] [address] 23 May, 2013 [facility] [address] [id number] [address] [place] [address], [place] [address] 19 May, 2013 [facility] [address] [id number] [address] [place] [address], [place] [address] 19 May, 2013 [facility] [address] [id number] [address] [place] [address], [place] [address] 17 May, 2013 [facility] [address] [id number] [address] [place] [address], [place] [address] 12 May, 2013 [facility] [address] [id number] [address] [place] [address], [place] [address] Apr, [facility] [address] [id number] Vivek GILMORE S [id number] Mar, [facility] [address] [id number] [address] [place] [address], [place] [address] Mar, [facility] [address] [id number] [address] [place] [address], [place] [address] Mar, [facility] [address] [id number] [address] [place] [address], [place] [address] Mar, [facility] [address] [id number] [address] [place] [address], [place] [address] Feb, [facility] [address] [id number] [address] [place] [address], [place] [address] Feb, [facility] [address] [id number] [address] [place] [address], [place] [address] Feb, [facility] [address] [id number] [address] [place] [address], [place] [address] Feb, [facility] [address] [id number] [address] [place] [address], [place] [address] January, [facility] [address] [id number] [address] [place] [address], [place] [address] January, [facility] [address] [id number] [address] [place] [address], [place] [address] January, [facility] [address] [id number] [address] [place] [address], [place] [address] January, [facility] [address] [id number] [address] [place] [address], [place] [address] January, [facility] [address] [id number] [address] [place] [address], [place] [address] January, [facility] [address] [id number] [address] [place] [address], [place] [address] January, [facility] [place] [facility] [address] [id number] [address] [place] [address], [place] [address] January, [facility] [address] [id number] [address] [place] [address], [place] [address] January, [facility] [address] [id number] [address] [place] [address], [place] [address] 23 Dec, 2012 [facility] [address] [id number] [address] [place] [address], [place] [address] 18 Dec, 2012 [facility] [address] [id number] [address] [place] [address], [place] [address] 17 Dec, 2012 [facility] [address] [id number] [address] [place] [address], [place] [address] 16 Dec, 2012 [facility] [address] [id number] [address] [place] [address], [place] [address] 16 Dec, 2012 [facility] [address] [id number] [address] [place] [address], [place] [address] Dec, [facility] [address] [id number] [address] [place] [address], [place] [address] Dec, [facility] [address] [id number] [address] [place] [address], [place] [address] Nov, [facility] [address] [id number] [address] [place] [address], [place] [address] Nov, [facility] [address] [id number] [address] [place] [address], [place] [address] 14 Nov, 2012 [facility] [address] [id number] [address] [place] [address], [place] [address] 28 Oct, 2012 [facility] [address] [id number] [address] [place] [address], [place] [address] 13 Oct, 2012 [facility] [address] [id number] [address] [place] [address], [place] [address] 05 Oct, 2012 [facility] [address] [id number] [address] [place] [address], [place] [address] Oct, [facility] [place] [address] [facility] [id number] [address] [place] [address] Jul, [facility] [place] [address] [facility] [id number] [address] [place] [address] Jun, [facility] [place] [address] [facility] [id number] [address] [place] [address] Jun, [facility] [place] [address] [facility] [id number] [address] [place] [address] May, IMMUNIZATIONS No Known Immunizations SOCIAL HISTORY Never Assessed REASON FOR VISIT Medication question PLAN OF CARE VITAL SIGNS MEDICATIONS Medication Instructions Dosage Frequency Start Date End Date Duration S tatus Insulin Syringe 30G X 5/16" 1 ML subcutaneously 5 times per dayDX: E11.49 as directed Aug, Active Metformin HCl 1000 MG Orally 2 times a day 1 tablet 12h Active RESULTS No Results PROCEDURES No Known [...] History post surgeries Hospitalization History [facility] [place]- Abd pain 09/24/2017
--- OUTSIDE RECORDS SUMMARY | 2019-11-21 01:51 | XMS REPORT ---
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 Active 66894405 Problem Type 2 diabetes mellitus with unspecified complications E11.8 Active 76018492 Problem BMI 50.0-59.9, adult Z68.43 Active 090520033 Problem Morbid (severe) obesity due to excess calories E66 .01 Active 488026953 Problem long-term current use of insulin Z79.4 Active 780258148 Problem Essential hypertension I10 Active [id number] ALLERGIES No Information ENCOUNTERS Encounter Location Date Diagnosis [facility] [place] [address] [facility] [id number] [address] [place] [phone] 30 Jun, 2018 [facility] [place] [address] [facility] [id number] [address] [place] [address] Jun, Gross hematuria R31.0 [facility] [place] [address] [facility] [id number] [address] [place] [address] Jun, Essential hypertension I10 [facility] [place] [address] [facility] [id number] [address] [place] [id number] Jun, [facility] [place] [address] [facility] [id number] [address] [place] [address] Jun, [facility] [place] [address] [facility] [id number] [address] [place] [address] May, [facility] [place] [address] [facility] [id number] [address] [place] [id number] May, [facility] [place] [address] [facility] [id number] [address] [place] [address] May, Type 2 diabetes mellitus wit h other diabetic neurological complication E11.49 [facility] [place] [address] [facility] [id number] [address] [place] [address] May, [facility] [place] [address] [facility] [id number] [address] [place] [phone] Apr, [facility] [place] [address] [facility] [id number] [address] [place] [address] Apr, [address] [place] [address] Apr, [facility] [place] [address] [facility] [id number] [address] [place] [address] Apr, Type 2 diabetes mellitus wit h other diabetic neurological complication E11.49 ; Essential hypertension I10 ; Yeast dermatitis of penis B37.49 ; Burning with urination R30.0 and Non-adherence to medical treatment Z91.19 [place] [address] [facility] [id number] [address] [place] [address] Apr, [place] [address] [facility] [id number] [address] [place] [address] Feb, [place] [address] [facility] [id number] [address] [place] [phone] Feb, [facility] [place] [address] [facility] [id number] [address] [place] [phone] January, [facility] [place] [address] [facility] [id number] [address] [place] [phone] January, [facility] [place] [address] [facility] [id number] [address] [place] [address] January, Onychomycosis B35.1 ; Callus of foot L84 and Type 2 diabetes mellitus with unspecified complications E11.8 [facility] [place] [address] [facility] [id number] [address] [place] [phone] January, [place] [address] [facility] [id number] [address] [place] [address] January, [facility] [place] [address] [facility] [id number] [address] [place] [phone] January, [facility] [place] [address] [facility] [id number] [address] [place] [address] January, [facility] [place] [address] [place] [id number] [address] [place] [address] January, BMI 50.0-59.9, adult Z68.43 [facility] [place] [address] [facility] [id number] [address] [place] [address] January, [facility] [place] [address] [place] [id number] [place] [address] January, Acute respiratory distress R 06.03 and Hypoxia R09.02 [facility] [place] [address] [address] January, [facility] [place] [address] [place] [id number] [place] [address] January, Shortness of breath on exert ion R06.02 and BMI 50.0-59.9, adult Z68.43 [facility] [place] [address] [place] [id number] [address] [place] [address] Dec, BMI 50.0-59.9, adult Z68.43 [facility] [place] [address] [facility] [id number] [address] [place] [address] Dec, [facility] [place] [address] [place] [id number] [address] [place] [id number] Dec, [facility] [place] [address] [place] [id number] [address] [place] [address] Dec, [facility] [place] [address] [place] [id number] [address] [place] [address] Nov, [facility] [place] [address] [place] [id number] [address] [place] [address] Nov, [address] [address] 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, 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 ; Type 2 diabetes mellitus with other diabetic neurological complication E11.49 ; Swelling of both lower extremities M79.89 ; Essential hypertension I10 ; BMI 50.0-59.9, adult Z68.43 and Blurry vision H53.[address] [address] Sep, Right upper quadrant pain R1 0.11 and Blood in stool K92.1 [facility] [place] [address] [address] Sep, Asymptomatic microscopic hem aturia R31.21 ; Glucose found in urine on examination R81 and BMI 50.0-59.9, adult Z68.[address] [address] Sep, Type 2 diabetes mellitus wit h unspecified complications E11.[address] [address] Aug, Type 2 diabetes mellitus wit h unspecified complications E11.8 ; Benign essential hypertension I10 ; Cough R05 ; Acute bronchitis, unspecified organism J20.9 ; Other viral agents as the cause of diseases classified elsewhere B97.89 and Morbid (severe) obesity due to excess calories E66.01 [facility] [place] [address] [address] May, Acute seasonal allergic rhin itis, unspecified trigger J30.2 and Candidiasis of penis B37.[address] [address] Dec, [address] [address] Dec, [address] [address] Oct, [facility] [address] [id number] [address] [place] [address], [place] [address] Oct, [facility] [address] [id number] [address] [place] [address], [place] [address] Dec, [facility] [address] [id number] [address] [place] [address], [place] [address] Dec, [facility] [address] [id number] [address] [place] [address], [place] [address] Dec, [facility] [address] [id number] [address] [place] [address], [place] [address] Dec, [facility] [address] [id number] [address] [place] [address], [place] [address] Dec, [facility] [address] [id number] [address] [place] [address], [place] [address] Dec, [facility] [address] [id number] [address] [place] [address], [place] [address] Nov, [facility] [address] [id number] [address] [place] [address], [place] [address] Nov, [facility] [address] [id number] [address] [place] [address], [place] [address] 23 May, 2013 [facility] [address] [id number] [address] [place] [address], [place] [address] 19 May, 2013 [facility] [address] [id number] [address] [place] [address], [place] [address] 19 May, 2013 [facility] [address] [id number] [address] [place] [address], [place] [address] 17 May, 2013 [facility] [address] [id number] [address] [place] [address], [place] [address] 12 May, 2013 [facility] [address] [id number] [address] [place] [address], [place] [address] Apr, [facility] [address] [id number] [place], [place] S [id number] Mar, [facility] [address] [id number] [address] [place] [address], [place] [address] Mar, [facility] [address] [id number] [address] [place] [address], [place] [address] Mar, [facility] [address] [id number] [address] [place] [address], [place] [address] Mar, [facility] [address] [id number] [address] [place] [address], [place] [address] Feb, [facility] [address] [id number] [address] [place] [address], [place] [address] Feb, [facility] [address] [id number] [address] [place] [address], [place] [address] Feb, [facility] [address] [id number] [address] [place] [address], [place] [address] Feb, [facility] [address] [id number] [address] [place] [address], [place] [address] January, [facility] [address] [id number] [address] [place] [address], [place] [address] January, [facility] [address] [id number] [address] [place] [address], [place] [address] January, [facility] [address] [id number] [address] [place] [address], [place] [address] January, [facility] [address] [id number] [address] [place] [address], [place] [address] January, [facility] [address] [id number] [address] [place] [address], [place] [address] January, [facility] [address] [id number] [address] [place] [address], [place] [address] January, [facility] [address] [id number] [address] [place] [address], [place] [address] January, [facility] [address] [id number] [address] [place] [address], [place] [address] January, [facility] [address] [id number] [address] [place] [address], [place] [address] Dec, [facility] [address] [id number] [address] [place] [address], [place] [address] Dec, [facility] [address] [id number] [address] [place] [address], [place] [address] Dec, [facility] [address] [id number] [address] [place] [address], [place] [address] Dec, [facility] [address] [id number] [address] [place] [address], [place] [address] Dec, [facility] [address] [id number] [address] [place] [address], [place] [address] Dec, [facility] [address] [id number] [address] [place] [address], [place] [address] Dec, [facility] [address] [id number] [address] [place] [address], [place] [address] Nov, [facility] [address] [id number] [address] [place] [address], [place] [address] Nov, [facility] [address] [id number] [address] [place] [address], [place] [address] Nov, [facility] [address] [id number] [address] [place] [address], [place] [address] Oct, [facility] [address] [id number] [address] [place] [address], [place] [address] Oct, [facility] [address] [id number] [address] [place] [address], [place] [address] Oct, [facility] [address] [id number] [address] [place] [address], [place] [address] Oct, [facility] [address] [id number] [address] [place] [id number] 16 Jul, 2010 [facility] [place] [address] [facility] [id number] [address] [place] [id number] 14 Jun, 2010 [facility] [place] [address] [facility] [id number] [address] [place] [address] 12 Jun, 2010 [facility] [place] [address] [facility] [id number] [address] [place] [address] 13 May, 2010 IMMUNIZATIONS No Known Immunizations SOCIAL HISTORY Never Assessed REASON FOR VISIT Requests return call PLAN OF CARE VITAL SIGNS MEDICATIONS Unknown [...] History post surgeries Hospitalization History [facility]- Abd pain 09/24/2017
--- OUTSIDE RECORDS SUMMARY | 2019-11-21 01:51 | XMS REPORT ---
Author Author Walter ALVARENGA [facility] Address [address] [place] [address] Care Team Providers Care Nursing Aide Name Role Phone RIAZ ALVARENGA Unavailable PROBLEMS ALLERGIES No Information ENCOUNTERS IMMUNIZATIONS No Known Immunizations SOCIAL HISTORY No smoking Hx information available REASON FOR VISIT PLAN OF CARE VITAL SIGNS MEDICATIONS Unknown Medications RESULTS No Results PROCEDURES No Known procedures INSTRUCTIONS MEDICATIONS ADMINISTERED No Known Medications MEDICAL (GENERAL) HISTORY
--- OUTSIDE RECORDS SUMMARY | 2019-11-21 01:52 | XMS REPORT ---
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 Active 59344647 Problem Type 2 diabetes mellitus with unspecified complications E11.8 Active 77850227 Problem BMI 50.0-59.9, adult Z68.43 Active 111027527 Problem Morbid (severe) obesity due to excess calories E66 .01 Active 240592587 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 Active 166263036 Problem Essential hypertension I10 Active 11260519 ALLERGIES No Known Allergies ENCOUNTERS Encounter Location Date Diagnosis [facility] [address] [facility] [id number] [address] [place] [id number] 11 Jun, 2018 [facility] [address] [facility] [id number] [address] [place] [id number] 25 May, 2018 Type 2 diabetes mellitus wit h other diabetic neurological complication E11.49 [facility] [address] [facility] [id number] [address] [place] [phone] 14 May, 2018 [facility] [address] [facility] [id number] [address] [place] [address] Apr, [facility] [address] [place] [id number] [address] [place] [phone] Apr, [facility] [address] [place] [address] Apr, [facility] [address] [facility] [id number] [address] [place] [address] Apr, Type 2 diabetes mellitus wit h other diabetic neurological complication E11.49 ; Essential hypertension I10 ; Yeast dermatitis of penis B37.49 ; Burning with urination R30.0 and Non-adherence to medical treatment Z91.19 [facility] [address] [facility] [id number] [address] [place] [address] Apr, [facility] [address] [facility] [id number] [address] [place] [phone] Feb, [facility] [address] [facility] [id number] [address] [place] [address] Feb, [facility] [address] [facility] [id number] [address] [place] [address] January, [facility] [address] [place] [id number] [address] [place] [address] January, [place] [address] [place] [id number] [place] [address] January, Onychomycosis B35.1 ; Callus of foot L84 and Type 2 diabetes mellitus with unspecified complications E11.8 [place] [address] [place] [id number] [address] [place] [address] January, [place] [address] [place] [id number] [address] [place] [phone] January, [facility] [address] [place] [id number] [address] [place] [address] January, [facility] [address] [place] [id number] [address] [place] [address] January, [facility] [address] [place] [id number] [address] [place] [address] January, BMI 50.0-59.9, adult Z68.43 [facility] [address] [place] [id number] [address] [place] [address] January, [facility] [address] [place] [id number] [address] [place] [address] January, Acute respiratory distress R 06.03 and Hypoxia R09.02 [facility] [address] [place] [id number] [address] [place] [address] January, [facility] [address] [place] [id number] [place] [address] January, Shortness of breath on exert ion R06.02 and BMI 50.0-59.9, adult Z68.43 [place] [address] [address] Dec, BMI 50.0-59.9, adult Z68.43 [place] [address] [address] Dec, [facility] [address] [place] [id number] [place] [address] Dec, [facility] [address] [address] Dec, [facility] [address] [address] Nov, [facility] [address] [address] Nov, [place] [address] [place] [id number] [place] [address] Oct, retirement current use of ins ulin Z79.4 ; Type 2 diabetes mellitus with other diabetic neurological complication E11.49 ; Swelling of both lower extremities M79.89 ; Essential hypertension I10 ; BMI 50.0-59.9, adult Z68.43 and Blurry vision H53.8 [facility] [address] [address] Sep, Right upper quadrant pain R1 0.11 and Blood in stool K92.1 [facility] [address] [place] [id number] [address] [place] [address] Sep, Asymptomatic microscopic hem aturia R31.21 ; Glucose found in urine on examination R81 and BMI 50.0-59.9, adult Z68.43 [facility] [address] [place] [id number] [address] [place] [address] Sep, Type 2 diabetes mellitus wit h unspecified complications E11.8 [facility] [address] [place] [id number] [address] [place] [phone] Aug, Type 2 diabetes mellitus wit h unspecified complications E11.8 ; Benign essential hypertension I10 ; Cough R05 ; Acute bronchitis, unspecified organism J20.9 ; Other viral agents as the cause of diseases classified elsewhere B97.89 and Morbid (severe) obesity due to excess calories E66.01 [facility] [address] [id number] May, Acute seasonal allergic rhin itis, unspecified trigger J30.2 and Candidiasis of penis B37.42 [place] [address] [address] Dec, [place] [address] [address] Dec, [place] [address] [id number] Oct, [place] [address] [address] Oct, [facility] [address] [place] [id number] [address] [place] [address] Dec, [facility] [address] [place] [id number] [address] [place] [address] Dec, [facility] [address] [address] Dec, [facility] [address] [place] [id number] [place] [address] Dec, [facility] [address] [address] Dec, [facility] [address] [id number] [address] [place] [address], [place] [address] Dec, [facility] [address] [id number] [address] [place] [address], [place] [address] Nov, [facility] [address] [id number] [address] [place] [address], [place] [address] Nov, [facility] [address] [id number] [address] [place] [address], [place] [address] May, [facility] [address] [id number] [address] [place] [address], [place] [address] May, [facility] [address] [id number] [address] [place] [address], [place] [address] May, [facility] [address] [id number] [address] [place] [address], [place] [address] 17 May, 2013 [facility] [address] [id number] [address] [place] [address], [place] [address] May, [facility] [address] [id number] [address] [place] [address], [place] [address] Apr, [facility] [address] [id number] [place] [id number] Mar, [facility] [address] [id number] [address] [place] [address], [place] [address] Mar, [facility] [address] [id number] [address] [place] [address], [place] [address] Mar, [facility] [address] [id number] [address] [place] [address], [place] [address] Mar, [facility] [address] [id number] [address] [place] [address], [place] [address] Feb, [facility] [address] [id number] [address] [place] [address], [place] [address] Feb, [facility] [address] [id number] [address] [place] [address], [place] [address] Feb, [facility] [address] [id number] [address] [place] [address], [place] [address] Feb, [facility] [address] [id number] [address] [place] [address], [place] [address] January, [facility] [address] [id number] [address] [place] [address], [place] [address] January, [facility] [address] [id number] [address] [place] [address], [place] [address] January, [facility] [address] [id number] [address] [place] [address], [place] [address] January, [facility] [address] [id number] [address] [place] [address], [place] [address] January, [facility] [address] [id number] [address] [place] [address], [place] [address] January, [facility] [address] [id number] [address] [place] [address], [place] [address] January, [facility] [address] [id number] [address] [place] [address], [place] [address] January, [facility] [address] [id number] [address] [place] [address], [place] [address] January, [facility] [address] [id number] [address] [place] [address], [place] [address] Dec, [facility] [address] [id number] [address] [place] [address], [place] [address] Dec, [facility] [address] [id number] [address] [place] [address], [place] [address] 17 Dec, 2012 [facility] [address] [id number] [address] [place] [address], [place] [address] Dec, [facility] [address] [id number] [address] [place] [address], [place] [address] Dec, [facility] [address] [id number] [address] [place] [phone] Dec, [facility] [address] [id number] [address] [place] [address] Dec, [facility] [address] [id number] [address] [place] [address] Nov, [facility] [address] [id number] [address] [place] [address] Nov, [facility] [address] [id number] [address] [place] [address] Nov, [facility] [address] [id number] [address] [place] [address] Oct, [facility] [address] [id number] [address] [place] [address] Oct, [facility] [address] [id number] [address] [place] [address] Oct, [facility] [address] [id number] [address] [place] [address] Oct, [facility] [address] [id number] [address] [place] [address] Jul, [facility] [address] [facility] [id number] [address] [place] [address] Jun, [facility] [address] [id number] [address] [place] [id number] Jun, [facility] [address] [facility] [id number] [address] [place] [address] May, IMMUNIZATIONS No Known Immunizations SOCIAL HISTORY Never Assessed REASON FOR VISIT Blood in Urine , burning urination x 1 week -- estephania potts PLAN OF CARE Activity Details Follow Up 2 Weeks Reason:DM and HTN me d f/u Pending Test MICROALBUMIN, URINE (IN HOUS E) VITAL SIGNS Height 69 in 2018-04-29 Weight 356.0 lbs 2018-04-29 Temperature 98.0 degrees Fahrenheit 2018-04-29 Heart Rate 98 bpm 2018-04-29 Respiratory Rate 24 2018-04-29 BMI 52.57 kg/m2 2018-04-29 Blood pressure systolic 170 mmHg 2018-04-29 Blood pressure diastolic 100 mmHg 2018-04-29 MEDICATIONS Medication Instructions Dosage Frequency Start Date End Date Duration S tatus Metformin HCl 850 MG Orally 3 times a day 1 tablet with meals 8h 30 days Active Fluconazole 150 MG Orally one time 1 tablet Apr, Apr, 1 days Active Omeprazole 40 mg by oral route 2 times a day 1 capsule 12h Feb, 013 Active Triamcinolone Acetonide 0.5 % Externally Twice a day as need ed 1 application to affected area Oct, Active Vitamin E Active Haloperidol 2 MG Orally TID PRN 1 tablet Active Accu-Chek Angela Plus 1 subcutaneously 3 times a day test 3 times pe r day 8h Aug, 12 months Active Fish Oil 1000 MG Orally Once a day 1 capsule 24h Active Invega Trinza 819 MG/2.625ML Intramuscular Q 3 months 2.625 ml Active Zyrtec Allergy 10 MG Orally Once a day 1 tablet 24h Active Lasix 40 MG Orally Once a day 1 tablet 24h 30 days A ctive Potassium Chloride ER 10 MEQ Orally Once a day 1 tablet with food 24h Jul, 30 days Active Mupirocin 2 % Externally Three times a day 1 application to affected area 8h Active NovoLog 100 UNIT/ML Subcutaneous 3 times a day per sliding scale 8h 30 days Active Benztropine Mesylate 0.5 MG Orally TID PRN 1 tablet Active Oxycodone HCl 10 MG Orally every 6 hrs 1 tablet as needed 6h Active Amlodipine Besylate 5 Orally Once a day TAKE ONE TABLET BY MOUTH DAILY 24h 30 Active Lisinopril 40 MG Orally Once a day 1 tablet 24h Aug, 30 day(s) Active Metformin HCl 1000 MG Orally 2 times a day 1 tablet 12h Active Pen [place] 32G X 4 MM as directed Oct, Active Multivitamin by Oral route once daily. Oct, Active Nystatin 307582 UNIT/GM Externally Twice a day Apply thin la venu to affected area BID 12h Apr, Apr, 10 days Active Fluconazole 150 MG 1 tablet Acti ve Basaglar KwikPen 100 UNIT/ML Subcutaneous 100 units 2 times a day a s directed Sep, Active Sucralfate 1 GM Orally 4 times a day 1 tablet 6h Active HydrOXYzine HCl 25 mg 1 tablet by Oral route 2 times p er day PRN Feb, Active RESULTS No Results PROCEDURES Procedure Date Ordered Result Body Site URINALYSIS, AUTO, W/O SCOPE Apr 29, 2018 GLYCATED HEMOGLOBIN TEST Apr 29, 2018 LAB NOT BILLED BY [facility] Apr 29, 2018 MICROALBUMIN, SEMIQUANT Apr 29, 2018 COMM[facility]ITY [facility] VISIT ESTABLISHED PATIENT Apr 29, 2018 INSTRUCTIONS MEDICATIONS ADMINISTERED No Known Medications MEDICAL (GENERAL) HISTORY Type Description Date Medical History bleeding ulcer Medical History type 2 diabetes Medical History stents in pancreas Medical History hypertension Medical History schizophrenia Surgical History bilateral knees...scopes Surgical History stent placed in pancreas Surgical History stent removed form pancreas Surgical History cholecystectomy Hospitalization History post surgeries Hospitalization History [facility]- Abd pain 09/24/2017
--- OUTSIDE RECORDS SUMMARY | 2019-11-21 01:52 | XMS REPORT ---
Author Author Walter DILLARD Organization 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 [id number] [place] [address] Jun, [facility] [address] [facility] [facility] [id number] [address] [place] [address] May, [facility] [address] [place] [id number] [address] [place] [address] May, [facility] [address] [address] [facility] [id number] [address] [place] [address] Apr, [facility] [address] [place] [id number] [address] [place] [address] Apr, [facility] [address] [place] [address] Apr, [facility] [address] [facility] [address] [facility] [id number] [address] [place] [address] Apr, Type 2 diabetes mellitus wit h other diabetic neurological complication E11.49 ; Essential hypertension I10 ; Yeast dermatitis of penis B37.49 ; Burning with urination R30.0 and Non-adherence to medical treatment Z91.19 [facility] [address] [place] [id number] [place] [address] Apr, [facility] [address] [facility] [id number] [address] [place] [address] Feb, [facility] [address] [place] [id number] [place] [address] Feb, [facility] [address] [place] [id number] [place] [address] January, [facility] [address] [place] [id number] [place] [address] January, [place] [address] [address] January, Onychomycosis B35.1 ; Callus of foot L84 and Type 2 diabetes mellitus with unspecified complications E11.8 [place] [address] [address] January, [facility] [address] [address] January, [facility] [address] [place] [id number] [place] [address] January, [place] [address] [place] [id number] [place] [address] January, [facility] [address] [place] [id number] [place] [address] January, BMI 50.0-59.9, adult Z68.43 [place] [address] [place] [id number] [address] [place] [address] January, [facility] [address] [place] [id number] [place] [address] January, Acute respiratory distress R 06.[address] [facility] [address] [facility] [facility] [id number] [address] [place] [address] January, [facility] [address] [place] [id number] [place] [address] January, Shortness of breath on exert ion R06.02 and BMI 50.0-59.9, adult Z68.43 [place] [address] [place] [id number] [place] [address] Dec, BMI 50.0-59.9, adult Z68.43 [facility] [address] [place] [id number] [place] [address] Dec, [place] [address] [place] [id number] [place] [address] Dec, [facility] [address] [place] [id number] [place] [address] Dec, [facility] [address] [address] Nov, [facility] [address] [place] [id number] [place] [address] Nov, [place] [address] [place] [id number] [place] [address] Oct, care home current use of ins ulin Z79.4 ; Type 2 diabetes mellitus with other diabetic neurological complication E11.49 ; Swelling of both lower extremities M79.89 ; Essential hypertension I10 ; BMI 50.0-59.9, adult Z68.[address] [facility] [address] [place] [id number] [place] [address] Sep, Right upper quadrant pain R1 0.11 and Blood in stool K92.[address] [facility] [address] [facility] [address] [facility] [id number] [address] [place] [address] Sep, Asymptomatic microscopic hem aturia R31.21 ; Glucose found in urine on examination R81 and BMI 50.0-59.9, adult Z68.43 [facility] [address] [place] [address] Sep, Type 2 diabetes mellitus wit h unspecified complications E11.8 [facility] [address] [place] [id number] [place] [address] Aug, Type 2 diabetes mellitus wit h unspecified complications E11.8 ; Benign essential hypertension I10 ; Cough R05 ; Acute bronchitis, unspecified organism J20.9 ; Other viral agents as the cause of diseases classified elsewhere B97.89 and Morbid (severe) obesity due to excess calories E66.[address] [facility] [address] [place] [id number] [address] [place] [address] May, Acute seasonal allergic rhin itis, unspecified trigger J30.2 and Candidiasis of penis B37.42 [facility] [address] [place] [id number] [address] [place] [address] Dec, [facility] [address] [address] Dec, [facility] [address] [place] [id number] [address] [place] [address] Oct, [facility] [address] [place] [id number] [address] [place] [address] Oct, [facility] [address] [place] [address] Dec, [facility] [address] [place] [id number] [address] [place] [address] Dec, [facility] [address] [place] [id number] [address] [place] [address] Dec, [facility] [address] [place] [id number] [place] [address] Dec, [facility] [address] [place] [id number] [address] [place] [address] Dec, [facility] [address] [id number] [address] [place] [address], [place] [address] Dec, [facility] [address] [id number] [address] [place] [address], [place] [address] Nov, [facility] [address] [id number] [address] [place] [address], [place] [address] Nov, [facility] [address] [id number] [address] [place] [address], [place] [address] May, [facility] [address] [id number] [address] [place] [address], [place] [address] May, [facility] [place] [address] [id number] [address] [place] [address], [place] [address] May, [facility] [place] [address] [id number] [address] [place] [address], [place] [address] 17 May, 2013 [facility] [place] [address] [id number] [address] [place] [address], [place] [address] May, [facility] [place] [address] [id number] [address] [place] [address], [place] [address] Apr, [facility] [address] [id number] [id number] Mar, [facility] [address] [id number] [address] [place] [address], [place] [address] Mar, [facility] [place] [address] [id number] [address] [place] [address], [place] [address] Mar, [facility] [address] [id number] [address] [place] [address], [place] [address] Mar, [facility] [address] [id number] [address] [place] [address], [place] [address] Feb, [facility] [address] [id number] [address] [place] [address], [place] [address] Feb, [facility] [place] [address] [id number] [address] [place] [address], [place] [address] Feb, [facility] [address] [id number] [address] [place] [address], [place] [address] Feb, [facility] [place] [address] [id number] [address] [place] [address], [place] [address] January, [facility] [address] [id number] [address] [place] [address], [place] [address] January, [facility] [address] [id number] [address] [place] [address], [place] [address] January, [facility] [address] [id number] [address] [place] [address], [place] [address] January, [facility] [address] [id number] [address] [place] [address], [place] [address] January, [facility] [address] [id number] [address] [place] [address], [place] [address] January, [facility] [address] [id number] [address] [place] [address], [place] [address] January, [facility] [address] [id number] [address] [place] [address], [place] [address] January, [facility] [address] [id number] [address] [place] [address], [place] [address] January, [facility] [address] [id number] [address] [place] [address], [place] [address] Dec, [facility] [address] [id number] [address] [place] [address], [place] [address] Dec, [facility] [address] [id number] [address] [place] [address], [place] [address] Dec, [facility] [address] [id number] [address] [place] [address], [place] [address] Dec, [facility] [address] [id number] [address] [place] [address], [place] [address] Dec, [facility] [address] [id number] [address] [address] Dec, [facility] [address] [id number] [address] [place] [address] Dec, [facility] [address] [id number] [address] [place] [address] Nov, [facility] [address] [id number] [address] [place] [address] Nov, [facility] [id number] [address] [place] [address] Nov, [facility] [address] [id number] [address] [place] [address] Oct, [facility] [address] [id number] [address] [place] [address] Oct, [facility] [address] [id number] [address] [place] [address] Oct, [facility] [address] [id number] [address] [place] [address] Oct, [facility] [address] [id number] [address] [place] [address] Jul, [facility] [address] [id number] [address] [place] [address] Jun, [facility] [address] [id number] [address] [place] [address] Jun, [facility] [address] [id number] [address] [place] [address] May, IMMUNIZATIONS No Known Immunizations SOCIAL HISTORY Never Assessed REASON FOR VISIT critical lab PLAN OF CARE VITAL SIGNS MEDICATIONS Unknown [...] History post surgeries Hospitalization History [facility]- Abd pain 09/24/2017
--- OUTSIDE RECORDS SUMMARY | 2019-11-21 01:52 | XMS REPORT ---
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 01977655 Problem Type 2 diabetes mellitus with unspecified complications E11.8 Active 30875725 Problem BMI 50.0-59.9, adult Z68.43 Active 675012590 Problem Morbid (severe) obesity due to excess calories E66 .01 Active 639559329 Problem group home current use of insulin Z79.4 Active 103551841 Problem Essential hypertension I10 Active [id number] ALLERGIES No Information ENCOUNTERS Encounter Location Date Diagnosis [facility] [id number] [place] [phone] Jun, [facility] [address] [place] [id number] [address] [place] [phone] May, [facility] [address] [place] [id number] [address] [place] [phone] May, [facility] [address] [facility] [id number] [address] [place] [phone] Apr, [facility] [address] [place] [id number] [address] [place] [phone] Apr, [facility] [address] [place] [address] Apr, [facility] [address] [facility] [id number] [address] [place] [address] Apr, Type 2 diabetes mellitus wit h other diabetic neurological complication E11.49 ; Essential hypertension I10 ; Yeast dermatitis of penis B37.49 ; Burning with urination R30.0 and Non-adherence to medical treatment Z91.19 [facility] [address] [place] [id number] [place] [address] Apr, [facility] [address] [facility] [id number] [address] [place] [phone] Feb, [facility] [address] [place] [id number] [place] [address] Feb, [facility] [address] [place] [id number] [place] [phone] January, [facility] [address] [place] [id number] [place] [address] January, [place] [address] [address] January, Onychomycosis B35.1 ; Callus of foot L84 and Type 2 diabetes mellitus with unspecified complications E11.8 [place] [address] [address] January, [facility] [address] [address] January, [facility] [address] [place] [id number] [place] [address] January, [place] [address] [place] [id number] [place] [address] January, [facility] [address] [place] [id number] [address] [place] [address] January, BMI 50.0-59.9, adult Z68.43 [place] [address] [place] [id number] [place] [address] January, [facility] [address] [place] [id number] [place] [address] January, Acute respiratory distress R 06.03 and Hypoxia R09.02 [facility] [address] [facility] [id number] [address] [place] [address] January, [facility] [address] [place] [id number] [place] [address] January, Shortness of breath on exert ion R06.02 and BMI 50.0-59.9, adult Z68.43 [place] [address] [place] [id number] [place] [address] Dec, BMI 50.0-59.9, adult Z68.43 [facility] [address] [place] [id number] [place] [phone] Dec, [place] [address] [place] [id number] [place] [address] Dec, [facility] [address] [place] [address] [id number] [place] [address] Dec, [facility] [address] [address] Nov, [facility] [address] [place] [id number] [address] [place] [phone] Nov, [place] [address] [place] [id number] [place] [address] 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, 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 ; Type 2 diabetes mellitus with other diabetic neurological complication E11.49 ; Swelling of both lower extremities M79.89 ; Essential hypertension I10 ; BMI 50.0-59.9, adult Z68.43 and Blurry vision H53.8 [facility] [address] [place] [id number] [place] [phone] Sep, Right upper quadrant pain R1 0.11 and Blood in stool K92.1 [facility] [address] [facility] [id number] [address] [place] [address] Sep, Asymptomatic microscopic hem aturia R31.21 ; Glucose found in urine on examination R81 and BMI 50.0-59.9, adult Z68.43 [facility] [address] [place] [address] Sep, Type 2 diabetes mellitus wit h unspecified complications E11.8 [facility] [address] [place] [id number] [address] [place] [address] Aug, Type 2 diabetes mellitus wit h unspecified complications E11.8 ; Benign essential hypertension I10 ; Cough R05 ; Acute bronchitis, unspecified organism J20.9 ; Other viral agents as the cause of diseases classified elsewhere B97.89 and Morbid (severe) obesity due to excess calories E66.01 [facility] [address] [place] [id number] [address] [place] [address] May, Acute seasonal allergic rhin itis, unspecified trigger J30.2 and Candidiasis of penis B37.42 [facility] [address] [place] [id number] [address] [place] [address] Dec, [facility] [address] [address] Dec, [facility] [address] [place] [id number] [address] [place] [phone] Oct, [facility] [address] [place] [id number] [address] [place] [address] Oct, [facility] [address] [place] [address] Dec, [facility] [address] [place] [id number] [address] [place] [phone] Dec, [facility] [address] [place] [id number] [address] [place] [phone] Dec, [facility] [address] [place] [id number] [address] [place] [phone] Dec, [facility] [address] [place] [id number] [address] [place] [phone] Dec, [facility] [address] [id number] [address] [place] [address], [place] [address] Dec, [facility] [address] [id number] [address] [place] [address], [place] [address] Nov, [facility] [address] [id number] [address] [place] [address], [place] [address] Nov, [facility] [address] [id number] [address] [place] [address], [place] [address] May, [facility] [address] [id number] [address] [place] [address], [place] [address] May, [facility] [address] [id number] [address] [place] [address], [place] [address] May, [facility] [address] [id number] [address] [place] [address], [place] [address] 17 May, 2013 [facility] [address] [id number] [address] [place] [address], [place] [address] May, [facility] [address] [id number] [address] [place] [address], [place] [address] Apr, [facility] [address] [id number] [id number] Mar, [facility] [address] [id number] [address] [place] [address], [place] [address] Mar, [facility] [address] [id number] [address] [place] [address], [place] [address] Mar, [facility] [address] [id number] [address] [place] [address], [place] [address] Mar, [facility] [address] [id number] [address] [place] [address], [place] [address] Feb, [facility] [address] [id number] [address] [place] [address], [place] [address] Feb, [facility] [address] [id number] [address] [place] [address], [place] [address] Feb, [facility] [address] [id number] [address] [place] [address], [place] [address] Feb, [facility] [address] [id number] [address] [place] [address], [place] [address] January, [facility] [address] [id number] [address] [place] [address], [place] [address] January, [facility] [address] [id number] [address] [place] [address], [place] [address] January, [facility] [address] [id number] [address] [place] [address], [place] [address] January, [facility] [address] [id number] [address] [place] [address], [place] [address] January, [facility] [address] [id number] [address] [place] [address], [place] [address] January, [facility] [address] [id number] [address] [place] [address], [place] [address] January, [facility] [address] [id number] [address] [place] [address], [place] [address] January, [facility] [address] [id number] [address] [place] [address], [place] [address] January, [facility] [address] [id number] [address] [place] [address], [place] [address] Dec, [facility] [address] [id number] [address] [place] [address], [place] [address] Dec, [facility] [address] [id number] [address] [place] [address], [place] [address] Dec, [facility] [address] [id number] [address] [place] [address], [place] [address] Dec, [facility] [address] [id number] [address] [place] [address], [place] [address] Dec, [facility] [address] [id number] [address] [address] Dec, [facility] [address] [id number] [address] [place] [address] Dec, [facility] [address] [id number] [address] [place] [address] Nov, [facility] [address] [id number] [address] [place] [phone] Nov, [facility] [address] [id number] [address] [place] [address] Nov, [facility] [address] [id number] [address] [place] [phone] Oct, [facility] [address] [id number] [address] [place] [address] Oct, [facility] [address] [facility] [id number] [address] [place] [address] Oct, [facility] [address] [id number] [address] [place] [id number] Oct, [facility] [address] [id number] [address] [place] [address] Jul, [facility] [address] [id number] [address] [place] [address] Jun, [facility] [address] [facility] [id number] [address] [place] [address] Jun, [facility] [address] [facility] [id number] [address] [place] [phone] May, IMMUNIZATIONS No Known Immunizations SOCIAL HISTORY Never Assessed REASON FOR VISIT DM ed scheduled PLAN OF CARE VITAL SIGNS MEDICATIONS Unknown [...] History post surgeries Hospitalization History [facility]- Abd pain 09/24/2017
--- OUTSIDE RECORDS SUMMARY | 2019-11-21 01:52 | XMS REPORT ---
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 Active 00368367 Problem Type 2 diabetes mellitus with unspecified complications E11.8 Active 22750381 Problem BMI 50.0-59.9, adult Z68.43 Active 675823905 Problem Morbid (severe) obesity due to excess calories E66 .01 Active 943768406 Problem group home current use of insulin Z79.4 Active 955588367 Problem Essential hypertension I10 Active 78654251 ALLERGIES No Information ENCOUNTERS Encounter Location Date Diagnosis [facility] [id number] [place] [id number] May, [facility] [address] [facility] [id number] [place] [phone] May, Medicare annual wellness vis it, initial Z00.00 [facility] [address] [facility] [id number] [place] [phone] May, [facility] [address] [facility] [id number] [place] [phone] Apr, [facility] [address] [facility] [id number] [place] [phone] Apr, [facility] [address] [facility] [id number] [place] [phone] Apr, [facility] [address] [place] [address] Apr, [facility] [address] [facility] [id number] [place] [phone] Apr, Type 2 diabetes mellitus wit h other diabetic neurological complication E11.49 ; Essential hypertension I10 ; Yeast dermatitis of penis B37.49 ; Burning with urination R30.0 and Non-adherence to medical treatment Z91.19 [facility] [address] [facility] [id number] [place] [phone] Apr, [facility] [address] [facility] [id number] [place] [phone] Feb, [facility] [address] [facility] [id number] [place] [phone] Feb, [facility] [id number] [place] [phone] January, [facility] [id number] [place] [phone] January, [facility] [id number] [place] [phone] January, Onychomycosis B35.1 ; Callus of foot L84 and Type 2 diabetes mellitus with unspecified complications E11.8 [place] [id number] [place] [phone] January, [facility] [id number] [place] [phone] January, [facility] [id number] [place] [phone] January, [facility] [id number] [place] [phone] January, [facility] [id number] [place] [phone] January, BMI 50.0-59.9, adult Z68.43 [facility] [id number] [place] [phone] January, [facility] [address] [facility] [id number] [place] [phone] January, Acute respiratory distress R 06.03 and Hypoxia R09.02 [facility] [address] [facility] [id number] [place] [phone] January, [facility] [id number] [place] [phone] January, Shortness of breath on exert ion R06.02 and BMI 50.0-59.9, adult Z68.43 [place] [address] [address] Dec, BMI 50.0-59.9, adult Z68.43 [facility] [id number] [place] [phone] Dec, [place] [address] [address] Dec, [facility] [id number] [place] [phone] Dec, [place] [address] [phone] Nov, [facility] [id number] [place] [phone] Nov, [place] [address] [address] 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, 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 ; Type 2 diabetes mellitus with other diabetic neurological complication E11.49 ; Swelling of both lower extremities M79.89 ; Essential hypertension I10 ; BMI 50.0-59.9, adult Z68.43 and Blurry vision H53.8 [facility] [id number] [place] [phone] Sep, Right upper quadrant pain R1 0.11 and Blood in stool K92.1 [facility] [address] [address] Sep, Asymptomatic microscopic hem aturia R31.21 ; Glucose found in urine on examination R81 and BMI 50.0-59.9, adult Z68.43 [facility] [address] [address] Sep, Type 2 diabetes mellitus wit h unspecified complications E11.8 [facility] [address] [address] Aug, Type 2 diabetes mellitus wit h unspecified complications E11.8 ; Benign essential hypertension I10 ; Cough R05 ; Acute bronchitis, unspecified organism J20.9 ; Other viral agents as the cause of diseases classified elsewhere B97.89 and Morbid (severe) obesity due to excess calories E66.01 [facility] [address] [id number] May, Acute seasonal allergic rhin itis, unspecified trigger J30.2 and Candidiasis of penis B37.42 [place] [address] [address] Dec, [place] [address] [address] Dec, [place] [address] [address] Oct, [place] [address] [address] Oct, [place] [address] [address] Dec, [place] [address] [address] Dec, [facility] [address] [address] Dec, [place] [address] [address] Dec, [facility] [address] [id number] [address] [place] [address], [place] [address] Dec, [facility] [address] [id number] [address] [place] [address], [place] [address] Dec, [facility] [address] [id number] [address] [place] [address], [place] [address] Nov, [facility] [address] [id number] [address] [place] [address], [place] [address] Nov, [facility] [address] [id number] [address] [place] [address], [place] [address] May, [facility] [address] [id number] [address] [place] [address], [place] [address] May, [facility] [address] [id number] [address] [place] [address], [place] [address] May, [facility] [address] [id number] [address] [place] [address], [place] [address] May, [facility] [address] [id number] [address] [place] [address], [place] [address] May, [facility] [address] [id number] [address] [place] [address], [place] [address] Apr, [facility] [address] [id number] [place] [id number] Mar, [facility] [address] [id number] [address] [place] [address], [place] [address] Mar, [facility] [address] [id number] [address] [place] [address], [place] [address] Mar, [facility] [address] [id number] [address] [place] [address], [place] [address] Mar, [facility] [address] [id number] [address] [place] [address], [place] [address] Feb, [facility] [address] [id number] [address] [place] [address], [place] [address] Feb, [facility] [address] [id number] [address] [place] [address], [place] [address] Feb, [facility] [address] [id number] [address] [place] [address], [place] [address] Feb, [facility] [address] [id number] [address] [place] [address], [place] [address] January, [facility] [address] [id number] [address] [place] [address], [place] [address] January, [facility] [address] [id number] [address] [place] [address], [place] [address] January, [facility] [address] [id number] [address] [place] [address], [place] [address] January, [facility] [address] [id number] [address] [place] [address], [place] [address] January, [facility] [address] [id number] [address] [place] [address], [place] [address] January, [facility] [address] [id number] [address] [place] [address], [place] [address] January, [facility] [address] [id number] [address] [place] [address], [place] [address] January, [facility] [address] [id number] [address] [place] [address], [place] [address] January, [facility] [address] [id number] [address] [place] [address], [place] [address] Dec, [facility] [address] [id number] [address] [place] [address], [place] [address] Dec, [facility] [address] [id number] [address] [place] [address], [place] [id number] Dec, [facility] [address] [id number] [address] [place] [address], [place] [address] Dec, [facility] [address] [id number] [address] [place] [id number] 16 Dec, 2012 [facility] [address] [id number] [address] [place] [phone] Dec, [facility] [address] [id number] [address] [place] [phone] Dec, [facility] [address] [id number] [address] [place] [phone] Nov, [facility] [address] [id number] [address] [place] [phone] Nov, [facility] [address] [id number] [address] [place] [id number] Nov, [facility] [address] [id number] [address] [place] [id number] Oct, [facility] [address] [id number] [address] [place] [phone] Oct, [facility] [address] [id number] [address] [place] [id number] Oct, [facility] [address] [id number] [address] [place] [phone] Oct, [facility] [address] [id number] [address] [place] [id number] Jul, [facility] [address] [id number] [address] [place] [phone] Jun, [facility] [address] [id number] [address] [place] [phone] Jun, [facility] [address] [id number] [address] [place] [phone] May, IMMUNIZATIONS No Known Immunizations SOCIAL HISTORY Never Assessed REASON FOR VISIT Enrolled in [facility] PLAN OF CARE VITAL SIGNS MEDICATIONS Unknown [...] History post surgeries Hospitalization History [facility]- Abd pain 09/24/2017
--- OUTSIDE RECORDS SUMMARY | 2019-11-21 01:52 | XMS REPORT ---
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 [id number] [address] [place] [address] May, [facility] [address] [place] [id number] [address] [place] [address] May, [facility] [address] [facility] [id number] [address] [place] [phone] Apr, [facility] [address] [place] [id number] [address] [place] [address] Apr, [facility] [address] [place] [address] Apr, [facility] [address] [facility] [id number] [address] [place] [address] Apr, Type 2 diabetes mellitus wit h other diabetic neurological complication E11.49 ; Essential hypertension I10 ; Yeast dermatitis of penis B37.49 ; Burning with urination R30.0 and Non-adherence to medical treatment Z91.19 [facility] [address] [place] [id number] [place] [address] Apr, [facility] [address] [facility] [id number] [address] [place] [address] Feb, [facility] [address] [place] [id number] [place] [address] Feb, [facility] [address] [place] [id number] [place] [address] January, [facility] [address] [place] [id number] [place] [address] January, [place] [address] [address] January, Onychomycosis B35.1 ; Callus of foot L84 and Type 2 diabetes mellitus with unspecified complications E11.8 [place] [address] [address] January, [facility] [address] [address] January, [facility] [address] [place] [id number] [place] [address] January, [place] [address] [place] [id number] [place] [address] January, [facility] [address] [place] [id number] [address] [place] [address] January, BMI 50.0-59.9, adult Z68.43 [place] [address] [place] [id number] [place] [address] January, [facility] [address] [place] [id number] [place] [address] January, Acute respiratory distress R 06.03 and Hypoxia R09.02 [facility] [address] [facility] [id number] [address] [place] [address] January, [facility] [address] [place] [id number] [place] [address] January, Shortness of breath on exert ion R06.02 and BMI 50.0-59.9, adult Z68.43 [place] [address] [place] [id number] [place] [address] Dec, BMI 50.0-59.9, adult Z68.43 [facility] [address] [place] [id number] [address] [place] [address] Dec, [place] [address] [place] [id number] [place] [address] Dec, [facility] [address] [place] [id number] [place] [address] Dec, [facility] [address] [address] Nov, [facility] [address] [place] [id number] [address] [place] [address] Nov, [place] [address] [place] [id number] [place] [address]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 [id number] [address] [place] [address] Sep, Asymptomatic microscopic hem aturia R31.21 ; Glucose found in urine on examination R81 and BMI 50.0-59.9, adult Z68.43 [facility] [address] [place] [address] Sep, Type 2 diabetes mellitus wit h unspecified complications E11.8 [facility] [address] [place] [id number] [place] [address] Aug, Type 2 diabetes mellitus wit h unspecified complications E11.8 ; Benign essential hypertension I10 ; Cough R05 ; Acute bronchitis, unspecified organism J20.9 ; Other viral agents as the cause of diseases classified elsewhere B97.89 and Morbid (severe) obesity due to excess calories E66.01 [facility] [address] [place] [id number] [address] [place] [address] May, Acute seasonal allergic rhin itis, unspecified trigger J30.2 and Candidiasis of penis B37.42 [facility] [address] [place] [id number] [address] [place] [address] Dec, [facility] [address] [address] Dec, [facility] [address] [place] [id number] [address] [place] [address] Oct, [facility] [address] [place] [id number] [address] [place] [address] Oct, [facility] [address] [place] [address] Dec, [facility] [address] [place] [id number] [address] [place] [address] Dec, [facility] [address] [place] [id number] [address] [place] [address] Dec, [facility] [address] [place] [id number] [address] [place] [address] Dec, [facility] [address] [place] [id number] [address] [place] [address] Dec, [facility] [address] [id number] [address] [place] [address], [place] [address] Dec, [facility] [address] [id number] [address] [place] [address], [place] [address] Nov, [facility] [address] [id number] [address] [place] [address], [place] [address] Nov, [facility] [address] [id number] [address] [place] [address], [place] [address] May, [facility] [address] [id number] [address] [place] [address], [place] [address] May, [facility] [address] [id number] [address] [place] [address], [place] [address] May, [facility] [address] [id number] [address] [place] [address], [place] [address] 17 May, 2013 [facility] [address] [id number] [address] [place] [address], [place] [address] May, [facility] [address] [id number] [address] [place] [address], [place] [address] Apr, [facility] [address] [id number] [id number] Mar, [facility] [address] [id number] [address] [place] [address], [place] [address] Mar, [facility] [address] [id number] [address] [place] [address], [place] [address] Mar, [facility] [address] [id number] [address] [place] [address], [place] [address] Mar, [facility] [address] [id number] [address] [place] [address], [place] [address] Feb, [facility] [address] [id number] [address] [place] [address], [place] [address] Feb, [facility] [address] [id number] [address] [place] [address], [place] [address] Feb, [facility] [address] [id number] [address] [place] [address], [place] [address] Feb, [facility] [address] [id number] [address] [place] [address], [place] [address] January, [facility] [address] [id number] [address] [place] [address], [place] [address] January, [facility] [address] [id number] [address] [place] [address], [place] [address] January, [facility] [address] [id number] [address] [place] [address], [place] [address] January, [facility] [address] [id number] [address] [place] [address], [place] [address] January, [facility] [address] [id number] [address] [place] [address], [place] [address] January, [facility] [address] [id number] [address] [place] [address], [place] [address] January, [facility] [address] [id number] [address] [place] [address], [place] [address] January, [facility] [address] [id number] [address] [place] [address], [place] [address] January, [facility] [address] [id number] [address] [place] [address], [place] [address] Dec, [facility] [address] [id number] [address] [place] [address], [place] [address] Dec, [facility] [address] [id number] [address] [place] [address], [place] [address] Dec, [facility] [address] [id number] [address] [place] [address], [place] [address] Dec, [facility] [address] [id number] [address] [place] [address], [place] [address] Dec, [facility] [address] [id number] [address] [address] Dec, [facility] [address] [id number] [address] [place] [address] Dec, [facility] [address] [id number] [address] [place] [address] Nov, [facility] [address] [id number] [address] [place] [address] Nov, [facility] [address] [id number] [address] [place] [address] Nov, [facility] [address] [id number] [address] [place] [address] Oct, [facility] [address] [id number] [address] [place] [address] Oct, [facility] [address] [facility] [id number] [address] [place] [address] Oct, [facility] [address] [id number] [address] [place] [address] Oct, [facility] [address] [id number] [address] [place] [address] Jul, [facility] [address] [id number] [address] [place] [address] Jun, [facility] [address] [facility] [id number] [address] [place] [address] Jun, [facility] [address] [id number] [address] [place] [address] May, IMMUNIZATIONS No Known Immunizations SOCIAL HISTORY [...] History post surgeries Hospitalization History [facility]- Abd pain 09/24/2017
--- OUTSIDE RECORDS SUMMARY | 2019-11-21 01:52 | XMS REPORT ---
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 74777414 Problem Type 2 diabetes mellitus with unspecified complications E11.8 Active 62879391 Problem BMI 50.0-59.9, adult Z68.43 Active 689020109 Problem Morbid (severe) obesity due to excess calories E66 .01 Active 403988516 Problem assisted current use of insulin Z79.4 Active 056378176 Problem Essential hypertension I10 Active [id number] ALLERGIES No Information ENCOUNTERS Encounter Location Date Diagnosis [facility] [address] [place] [address] Jun, [facility] [address] [facility] [id number] [address] [place] [address] May, [facility] [address] [place] [id number] [address] [place] [address] May, [facility] [address] [facility] [id number] [address] [place] [address] Apr, [facility] [address] [place] [id number] [address] [place] [address] Apr, [facility] [address] [place] [address] Apr, [facility] [address] [facility] [id number] [address] [place] [address] Apr, Type 2 diabetes mellitus wit h other diabetic neurological complication E11.49 ; Essential hypertension I10 ; Yeast dermatitis of penis B37.49 ; Burning with urination R30.0 and Non-adherence to medical treatment Z91.19 [facility] [address] [place] [id number] [place] [address] Apr, [facility] [address] [facility] [id number] [address] [place] [address] Feb, [facility] [address] [place] [id number] [place] [address] Feb, [facility] [address] [place] [id number] [address] [place] [address] January, [facility] [address] [place] [id number] [place] [address] January, [place] [address] [address] January, Onychomycosis B35.1 ; Callus of foot L84 and Type 2 diabetes mellitus with unspecified complications E11.8 [place] [address] [address] January, [facility] [address] [address] January, [facility] [address] [place] [id number] [place] [address] January, [place] [address] [place] [id number] [place] [address] January, [facility] [address] [place] [id number] [address] [place] [address] January, BMI 50.0-59.9, adult Z68.43 [place] [address] [place] [id number] [address] [place] [address] January, [facility] [address] [place] [id number] [place] [address] January, Acute respiratory distress R 06.03 and Hypoxia R09.02 [facility] [address] [facility] [id number] [address] [place] [address] January, [facility] [address] [place] [id number] [place] [address] January, Shortness of breath on exert ion R06.02 and BMI 50.0-59.9, adult Z68.43 [place] [address] [place] [id number] [place] [address] Dec, BMI 50.0-59.9, adult Z68.43 [facility] [address] [place] [id number] [address] [place] [address] Dec, [place] [address] [place] [id number] [place] [address] Dec, [facility] [address] [place] [id number] [place] [address] Dec, [facility] [address] [address] Nov, [facility] [address] [place] [id number] [address] [place] [address] Nov, [place] [address] [place] [id number] [place] [address] Oct, 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 ; Type 2 diabetes mellitus with other diabetic neurological complication E11.49 ; Swelling of both lower extremities M79.89 ; Essential hypertension I10 ; BMI 50.0-59.9, adult Z68.43 and Blurry vision H53.8 [facility] [address] [place] [id number] [address] [place] [address] Sep, Right upper quadrant pain R1 0.11 and Blood in stool K92.1 [facility] [address] [facility] [id number] [address] [place] [address] Sep, Asymptomatic microscopic hem aturia R31.21 ; Glucose found in urine on examination R81 and BMI 50.0-59.9, adult Z68.43 [facility] [address] [place] [address] Sep, Type 2 diabetes mellitus wit h unspecified complications E11.8 [facility] [address] [place] [id number] [address] [place] [address] Aug, Type 2 diabetes mellitus wit h unspecified complications E11.8 ; Benign essential hypertension I10 ; Cough R05 ; Acute bronchitis, unspecified organism J20.9 ; Other viral agents as the cause of diseases classified elsewhere B97.89 and Morbid (severe) obesity due to excess calories E66.01 [facility] [address] [place] [id number] [address] [place] [address] May, Acute seasonal allergic rhin itis, unspecified trigger J30.2 and Candidiasis of penis B37.42 [facility] [address] [place] [id number] [address] [place] [address] Dec, [facility] [address] [address] Dec, [facility] [address] [place] [id number] [address] [place] [address] Oct, [facility] [address] [place] [id number] [address] [place] [address] Oct, [facility] [address] [place] [address] Dec, [facility] [address] [place] [id number] [address] [place] [address] Dec, [facility] [address] [place] [id number] [address] [place] [address] Dec, [facility] [address] [place] [id number] [address] [place] [address] Dec, [facility] [address] [place] [id number] [address] [place] [address] Dec, [facility] [address] [id number] [address] [place] [address], [place] [address] Dec, [facility] [address] [id number] [address] [place] [address], [place] [address] Nov, [facility] [address] [id number] [address] [place] [address], [place] [address] Nov, [facility] [address] [id number] [address] [place] [address], [place] [address] May, [facility] [address] [id number] [address] [place] [address], [place] [address] May, [facility] [address] [id number] [address] [place] [address], [place] [address] May, [facility] [address] [id number] [address] [place] [address], [place] [address] 17 May, 2013 [facility] [address] [id number] [address] [place] [address], [place] [address] May, [facility] [address] [id number] [address] [place] [address], [place] [address] Apr, [facility] [address] [id number] [place] [id number] Mar, [facility] [address] [id number] [address] [place] [address], [place] [address] Mar, [facility] [address] [id number] [address] [place] [address], [place] [address] Mar, [facility] [address] [id number] [address] [place] [address], [place] [address] Mar, [facility] [address] [id number] [address] [place] [address], [place] [address] Feb, [facility] [address] [id number] [address] [place] [address], [place] [address] Feb, [facility] [address] [id number] [address] [place] [address], [place] [address] Feb, [facility] [address] [id number] [address] [place] [address], [place] [address] Feb, [facility] [address] [id number] [address] [place] [address], [place] [address] January, [facility] [address] [id number] [address] [place] [address], [place] [address] January, [facility] [address] [id number] [address] [place] [address], [place] [address] January, [facility] [address] [id number] [address] [place] [address], [place] [address] January, [facility] [address] [id number] [address] [place] [address], [place] [address] January, [facility] [address] [id number] [address] [place] [address], [place] [address] January, [facility] [address] [id number] [address] [place] [address], [place] [address] January, [facility] [address] [id number] [address] [place] [address], [place] [address] January, [facility] [address] [id number] [address] [place] [address], [place] [address] January, [facility] [address] [id number] [address] [place] [address], [place] [address] Dec, [facility] [address] [id number] [address] [place] [address], [place] [address] Dec, [facility] [address] [id number] [address] [place] [address], [place] [address] Dec, [facility] [address] [id number] [address] [place] [address], [place] [address] Dec, [facility] [address] [id number] [address] [place] [address], [place] [address] Dec, [facility] [address] [id number] [place] [address] Dec, [facility] [address] [id number] [address] [place] [address] Dec, [facility] [address] [id number] [address] [place] [address] Nov, [facility] [address] [id number] [address] [place] [address] Nov, [facility] [address] [id number] [address] [place] [address] Nov, [facility] [address] [id number] [address] [place] [address] Oct, [facility] [address] [id number] [address] [place] [address] Oct, [facility] [address] [facility] [id number] [address] [place] [address] Oct, [facility] [address] [id number] [address] [place] [address] Oct, [facility] [address] [id number] [address] [place] [address] Jul, [facility] [address] [id number] [address] [place] [address] Jun, [facility] [address] [facility] [id number] [address] [place] [address] Jun, [facility] [address] [id number] [address] [place] [address] May, IMMUNIZATIONS No Known Immunizations SOCIAL HISTORY Never Assessed REASON FOR VISIT wanting medication PLAN OF CARE VITAL SIGNS MEDICATIONS Unknown [...] History post surgeries Hospitalization History [facility]- Abd pain 09/24/2017
--- OUTSIDE RECORDS SUMMARY | 2019-11-21 01:52 | XMS REPORT ---
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 Active 32833021 Problem Type 2 diabetes mellitus with unspecified complications E11.8 Active 60137166 Problem BMI 50.0-59.9, adult Z68.43 Active 357559442 Problem Morbid (severe) obesity due to excess calories E66 .01 Active 624253939 Problem snf current use of insulin Z79.4 Active 619045516 Problem Essential hypertension I10 Active [id number] ALLERGIES No Information ENCOUNTERS Encounter Location Date Diagnosis [place] [id number] [place] [id number] [place] [address] May, [facility] [address] [place] [id number] [address] [place] [address] May, [facility] [id number] [place] [address] May, [facility] [address] [place] [id number] [address] [place] [address] Apr, [facility] [place] [address] [place] [address] Apr, [facility] [address] [place] [id number] [address] [place] [address] Apr, Essential hypertension I10 ; Type 2 diabetes mellitus with other diabetic neurological complication E11.49 ; Yeast dermatitis of penis B37.49 and Burning with urination R30.0 [facility] [address] [place] [id number] [address] [place] [address] Apr, [facility] [address] [id number] [address] [place] [address] Feb, [facility] [address] [id number] [address] [place] [address] Feb, [facility] [address] [id number] [address] [place] [address] January, [facility] [address] [id number] [address] [place] [address] January, [facility] [address] [id number] [address] [place] [address] January, Onychomycosis B35.1 ; Callus of foot L84 and Type 2 diabetes mellitus with unspecified complications E11.8 [facility] [address] [facility] [id number] [address] [place] [address] January, [facility] [address] [id number] [address] [place] [address] January, [facility] [address] [facility] [id number] [address] [place] [address] January, [facility] [address] [facility] [id number] [address] [place] [address] January, [facility] [address] [facility] [id number] [address] [place] [address] January, BMI 50.0-59.9, adult Z68.43 [facility] [address] [id number] [address] [place] [address] January, [facility] [address] [facility] [id number] [address] [place] [address] January, Acute respiratory distress R 06.03 and Hypoxia R09.02 [facility] [address] [id number] [address] [place] [address] January, [facility] [address] [address] January, Shortness of breath on exert ion R06.02 and BMI 50.0-59.9, adult Z68.43 [place] [address] [address] Dec, BMI 50.0-59.9, adult Z68.43 [place] [address] [address] Dec, [place] [address] [address] Dec, [place] [address] [address] Dec, [place] [address] [address] Nov, [place] [address] [address] Nov, [place] [address] [address] Oct, long term current use of ins ulin Z79.4 ; Type 2 diabetes mellitus with other diabetic neurological complication E11.49 ; Swelling of both lower extremities M79.89 ; Essential hypertension I10 ; BMI 50.0-59.9, adult Z68.43 and Blurry vision H53.8 [place] [address] [address] Sep, Right upper quadrant pain R1 0.11 and Blood in stool K92.1 [facility] [address] [address] Sep, Asymptomatic microscopic hem aturia R31.21 ; Glucose found in urine on examination R81 and BMI 50.0-59.9, adult Z68.43 [facility] [address] [address] Sep, Type 2 diabetes mellitus wit h unspecified complications E11.8 [facility] [address] [facility] [id number] [address] [place] [address] Aug, Type 2 diabetes mellitus wit h unspecified complications E11.8 ; Benign essential hypertension I10 ; Cough R05 ; Acute bronchitis, unspecified organism J20.9 ; Other viral agents as the cause of diseases classified elsewhere B97.89 and Morbid (severe) obesity due to excess calories E66.01 [facility] [address] [facility] [id number] [address] [place] [address] May, Acute seasonal allergic rhin itis, unspecified trigger J30.2 and Candidiasis of penis B37.42 [facility] [address] [address] Dec, [facility] [address] [address] Dec, [facility] [address] [address] Oct, [facility] [address] [place] [id number] [address] [place] [address] Oct, [facility] [address] [address] Dec, [facility] [address] [place] [id number] [address] [place] [address] Dec, [facility] [address] [place] [id number] [address] [place] [address] Dec, [facility] [address] [place] [id number] [address] [place] [address] Dec, [facility] [address] [address] Dec, [facility] [address] [place] [id number] [address] [place] [address] Dec, [facility] [address] [place] [id number] [place] [address] Nov, [facility] [address] [id number] [address] [place] [address], [place] [address] Nov, [facility] [address] [id number] [address] [place] [address], [place] [address] May, [facility] [address] [id number] [address] [place] [address], [place] [address] May, [facility] [address] [id number] [address] [place] [address], [place] [address] May, [facility] [address] [id number] [address] [place] [address], [place] [address] 17 May, 2013 [facility] [address] [id number] [address] [place] [address], [place] [address] May, [facility] [address] [id number] [address] [place] [address], [place] [address] Apr, [facility] [address] [id number] [place] [id number] Mar, [facility] [address] [id number] [address] [place] [address], [place] [address] Mar, [facility] [address] [id number] [address] [place] [address], [place] [address] Mar, [facility] [address] [id number] [address] [place] [address], [place] [address] Mar, [facility] [address] [id number] [address] [place] [address] Feb, [facility] [address] [id number] [address] [place] [address], [place] [address] Feb, [facility] [address] [id number] [address] [place] [address], [place] [address] Feb, [facility] [address] [id number] [address] [place] [address], [place] [address] Feb, [facility] [address] [id number] [address] [place] [address], [place] [address] January, [facility] [address] [id number] [address] [place] [address], [place] [address] January, [facility] [address] [id number] [address] [place] [address], [place] [address] January, [facility] [address] [id number] [address] [place] [address], [place] [address] January, [facility] [address] [id number] [address] [place] [address], [place] [address] January, [facility] [address] [id number] [address] [place] [address], [place] [address] January, [facility] [address] [id number] [address] [place] [address], [place] [address] January, [facility] [address] [id number] [address] [place] [address], [place] [address] January, [facility] [address] [id number] [address] [place] [address], [place] [address] January, [facility] [address] [id number] [address] [place] [address], [place] [address] Dec, [facility] [address] [id number] [address] [place] [address], [place] [address] Dec, [facility] [address] [id number] [address] [place] [address], [place] [address] Dec, [facility] [address] [id number] [address] [place] [address], [place] [address] Dec, [facility] [address] [id number] [address] [place] [address], [place] [address] Dec, [facility] [address] [id number] [address] [place] [address], [place] [address] Dec, [facility] [address] [id number] [address] [place] [address], [place] [address] Dec, [facility] [address] [id number] [address] [place] [phone] Nov, [facility] [address] [id number] [address] [place] [phone] Nov, [facility] [address] [id number] [address] [place] [phone] Nov, [facility] [address] [id number] [address] [place] [id number] Oct, [facility] [address] [id number] [address] [place] [phone] Oct, [facility] [address] [id number] [address] [place] [phone] Oct, [facility] [address] [id number] [address] [place] [phone] Oct, [facility] [address] [id number] [address] [place] [id number] Jul, [facility] [address] [id number] [address] [place] [phone] Jun, [facility] [address] [id number] [address] [place] [id number] Jun, [facility] [address] [id number] [address] [place] [phone] May, IMMUNIZATIONS No Known Immunizations SOCIAL HISTORY Never Assessed REASON FOR VISIT BP Reduction Challenge Check-in PLAN OF CARE VITAL SIGNS MEDICATIONS Unknown [...] History post surgeries Hospitalization History [facility]- Abd pain 09/24/2017
--- OUTSIDE RECORDS SUMMARY | 2019-11-21 01:52 | XMS REPORT ---
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 Active 87690989 Problem Type 2 diabetes mellitus with unspecified complications E11.8 Active 12752113 Problem BMI 50.0-59.9, adult Z68.43 Active 123147926 Problem Morbid (severe) obesity due to excess calories E66 .01 Active 414975654 Problem MCC current use of insulin Z79.4 Active 601670516 Problem Essential hypertension I10 Active 00001359 ALLERGIES No Information ENCOUNTERS Encounter Location Date Diagnosis [place] [id number] [place] [id number] [place] [address] May, [facility] [address] [place] [id number] [place] [address] May, [place] [id number] [place] [id number] [place] [address] May, [facility] [address] [place] [id number] [place] [address] Apr, [facility] [address] [place] [address] Apr, [facility] [address] [place] [id number] [place] [address] Apr, Burning with urination R30.0 ; Essential hypertension I10 ; Type 2 diabetes mellitus with other diabetic neurological complication E11.49 and Yeast dermatitis of penis B37.49 [facility] [address] [place] [id number] [address] [place] [address] Apr, [facility] [address] [id number] [address] [place] [address] Feb, [facility] [address] [id number] [address] [place] [address] Feb, [facility] [address] [id number] [address] [place] [address] January, [facility] [address] [id number] [address] [place] [address] January, [facility] [address] [id number] [address] [place] [address] January, Onychomycosis B35.1 ; Callus of foot L84 and Type 2 diabetes mellitus with unspecified complications E11.8 [facility] [address] [facility] [id number] [address] [place] [address] January, [facility] [address] [id number] [address] [place] [address] January, [facility] [address] [facility] [id number] [address] [place] [address] January, [facility] [address] [facility] [id number] [address] [place] [address] January, [facility] [address] [facility] [id number] [address] [place] [address] January, BMI 50.0-59.9, adult Z68.43 [facility] [address] [id number] [address] [place] [address] January, [facility] [address] [facility] [id number] [address] [place] [address] January, Acute respiratory distress R 06.03 and Hypoxia R09.02 [facility] [address] [id number] [address] [place] [address] January, [facility] [address] [id number] January, Shortness of breath on exert ion R06.02 and BMI 50.0-59.9, adult Z68.43 [place] [address] [address] Dec, BMI 50.0-59.9, adult Z68.43 [place] [address] [address] Dec, [place] [address] [address] Dec, [place] [address] [address] Dec, [place] [address] [address] Nov, [place] [address] [address] Nov, [place] [address] [address] 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, 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 ; Type 2 diabetes mellitus with other diabetic neurological complication E11.49 ; Swelling of both lower extremities M79.89 ; Essential hypertension I10 ; BMI 50.0-59.9, adult Z68.43 and Blurry vision H53.8 [place] [address] [id number] Sep, Right upper quadrant pain R1 0.11 and Blood in stool K92.1 [facility] [address] [address] Sep, Asymptomatic microscopic hem aturia R31.21 ; Glucose found in urine on examination R81 and BMI 50.0-59.9, adult Z68.43 [facility] [address] [address] Sep, Type 2 diabetes mellitus wit h unspecified complications E11.8 [facility] [address] [facility] [id number] [address] [place] [address] Aug, Type 2 diabetes mellitus wit h unspecified complications E11.8 ; Benign essential hypertension I10 ; Cough R05 ; Acute bronchitis, unspecified organism J20.9 ; Other viral agents as the cause of diseases classified elsewhere B97.89 and Morbid (severe) obesity due to excess calories E66.01 [facility] [address] [facility] [id number] [address] [place] [address] May, Acute seasonal allergic rhin itis, unspecified trigger J30.2 and Candidiasis of penis B37.42 [facility] [address] [id number] Dec, [facility] [address] [address] Dec, [facility] [address] [address] Oct, [facility] [address] [place] [id number] [place] [address] Oct, [facility] [address] [address] Dec, [facility] [address] [place] [id number] [place] [address] Dec, [facility] [address] [place] [id number] [address] [place] [address] Dec, [facility] [address] [place] [id number] [address] [place] [address] Dec, [facility] [address] [address] Dec, [facility] [address] [place] [id number] [address] [place] [address] Dec, [facility] [address] [place] [id number] [place] [address] Nov, [facility] [address] [id number] [address] [place] [address], [place] [address] Nov, [facility] [address] [id number] [address] [place] [address], [place] [address] May, [facility] [address] [id number] [address] [place] [address], [place] [address] May, [facility] [address] [id number] [address] [place] [address], [place] [address] May, [facility] [address] [id number] [address] [place] [address], [place] [address] 17 May, 2013 [facility] [address] [id number] [address] [place] [address], [place] [address] May, [facility] [address] [id number] [address] [place] [address], [place] [address] Apr, [facility] [address] [id number] [id number] Mar, [facility] [address] [id number] [address] [place] [address], [place] [address] Mar, [facility] [address] [id number] [address] [place] [address], [place] [address] Mar, [facility] [address] [id number] [address] [place] [address], [place] [address] Mar, [facility] [address] [id number] [address] [place] [address] Feb, [facility] [address] [id number] [address] [place] [address], [place] [address] Feb, [facility] [address] [id number] [address] [place] [address], [place] [address] Feb, [facility] [address] [id number] [address] [place] [address], [place] [address] Feb, [facility] [address] [id number] [address] [place] [address], [place] [address] January, [facility] [address] [id number] [address] [place] [address], [place] [address] January, [facility] [address] [id number] [address] [place] [address], [place] [address] January, [facility] [address] [id number] [address] [place] [address], [place] [address] January, [facility] [address] [id number] [address] [place] [address], [place] [address] January, [facility] [address] [id number] [address] [place] [address], [place] [address] January, [facility] [address] [id number] [address] [place] [address], [place] [address] January, [facility] [address] [id number] [address] [place] [address], [place] [address] January, [facility] [address] [id number] [address] [place] [address], [place] [address] January, [facility] [address] [id number] [address] [place] [address], [place] [address] Dec, [facility] [address] [id number] [address] [place] [address], [place] [address] Dec, [facility] [address] [id number] [address] [place] [address], [place] [address] Dec, [facility] [address] [id number] [address] [place] [address], [place] [address] Dec, [facility] [address] [id number] [address] [place] [address], [place] [address] Dec, [facility] [address] [id number] [address] [place] [address], [place] [address] Dec, [facility] [address] [id number] [address] [place] [address], [place] [address] Dec, [facility] [address] [id number] [address] [place] [address] Nov, [facility] [address] [id number] [address] [place] [address] Nov, [facility] [address] [id number] [address] [place] [address] Nov, [facility] [address] [id number] [address] [place] [address] Oct, [facility] [address] [id number] [address] [place] [address] Oct, [facility] [address] [id number] [address] [place] [address] Oct, [facility] [address] [id number] [address] [place] [phone] Oct, [facility] [address] [id number] [address] [place] [address] Jul, [facility] [address] [id number] [address] [place] [address] Jun, [facility] [address] [id number] [address] [place] [address] Jun, [facility] [address] [id number] [address] [place] [address] May, IMMUNIZATIONS No Known Immunizations SOCIAL HISTORY Never Assessed REASON FOR VISIT DM foot exam, left foot with bone changes and callus. Consult Dr. Menon;Don RT (R) PLAN OF CARE Activity Details Follow Up 4 Months Reason: VITAL SIGNS Height 69 in 2018-01-25 Blood pressure systolic 154 mmHg 2018-01-25 Blood pressure diastolic 88 mmHg 2018-01-25 MEDICATIONS Unknown Medications RESULTS No Results PROCEDURES Procedure Date Ordered Result Body Site [facility] VISIT ESTABLISHED PATIENT January 25, 2018 INSTRUCTIONS MEDICATIONS ADMINISTERED No Known Medications MEDICAL (GENERAL) HISTORY Type Description Date Medical History bleeding ulcer Medical History type 2 diabetes Medical History stents in pancreas Medical History hypertension Medical History schizophrenia Surgical History bilateral knees...scopes Surgical History stent placed in pancreas Surgical History stent removed form pancreas Surgical History cholecystectomy Hospitalization History post surgeries Hospitalization History [facility] [place]- Abd pain 09/24/2017
--- OUTSIDE RECORDS SUMMARY | 2019-11-21 01:53 | XMS REPORT ---
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 Active 04130605 Problem Type 2 diabetes mellitus with unspecified complications E11.8 Active 81454823 Problem BMI 50.0-59.9, adult Z68.43 Active 030613218 Problem Morbid (severe) obesity due to excess calories E66 .01 Active 999152576 Problem intermediate current use of insulin Z79.4 Active 648144577 Problem Essential hypertension I10 Active [id number] ALLERGIES No Information ENCOUNTERS Encounter Location Date Diagnosis [place] [address] [place] [id number] [place] [address] May, [place] [address] [place] [id number] [place] [address] May, [facility] [place] [address] [id number] [place] [address] May, [facility] [address] [place] [address] Apr, [facility] [place] [address] [place] [id number] [address] [place] [address] Apr, Burning with urination R30.0 ; Essential hypertension I10 ; Type 2 diabetes mellitus with other diabetic neurological complication E11.49 and Yeast dermatitis of penis B37.49 [facility] [place] [address] [place] [id number] [address] [place] [address] Apr, [facility] [place] [address] [place] [id number] [address] [place] [id number] Feb, [facility] [place] [address] [facility] [id number] [address] [place] [address] Feb, [facility] [place] [address] [facility] [id number] [address] [place] [phone] January, [facility] [place] [address] [place] [id number] [place] [address] January, [facility] [place] [address] [place] [id number] [place] [address] January, Onychomycosis B35.1 ; Callus of foot L84 and Type 2 diabetes mellitus with unspecified complications E11.8 [facility] [place] [address] [place] [id number] [address] [place] [address] January, [facility] [place] [address] [address] January, [facility] [place] [address] [place] [id number] [address] [place] [address] January, [facility] [place] [address] [id number] [place] [address] January, [facility] [place] [address] [place] [id number] [address] [place] [address] January, BMI 50.0-59.9, adult Z68.43 [facility] [place] [address] [place] [id number] [address] [place] [address] January, [facility] [place] [address] [place] [id number] [address] [place] [address] January, Acute respiratory distress R 06.03 and Hypoxia R09.02 [facility] [place] [address] [facility] [id number] [address] [place] [address] January, [facility] [place] [address] [place] [id number] [address] [place] [address] January, Shortness of breath on exert ion R06.02 and BMI 50.0-59.9, adult Z68.43 [facility] [place] [address] [facility] [id number] [address] [place] [address] Dec, BMI 50.0-59.9, adult Z68.43 [facility] [place] [address] [facility] [id number] [address] [place] [address] Dec, [facility] [place] [address] [facility] [id number] [address] [place] [address] Dec, [facility] [place] [address] [facility] [id number] [address] [place] [address] Dec, [place] [address] [place] [id number] [place] [phone] Nov, [place] [address] [place] [id number] [address] [place] [address] Nov, [facility] [place] [address] [place] [id number] [place] [address] Oct, intermediate current use of ins ulin Z79.4 ; Type 2 diabetes mellitus with other diabetic neurological complication E11.49 ; Swelling of both lower extremities M79.89 ; Essential hypertension I10 ; BMI 50.0-59.9, adult Z68.43 and Blurry vision H53.8 [facility] [place] [address] [place] [place] [id number] [place] [address] Sep, Right upper quadrant pain R1 0.11 and Blood in stool K92.1 [facility] [address] [place] [id number] [address] [place] [address] Sep, Asymptomatic microscopic hem aturia R31.21 ; Glucose found in urine on examination R81 and BMI 50.0-59.9, adult Z68.43 [facility] [place] [address] [place] [id number] [address] [place] [address] Sep, Type 2 diabetes mellitus wit h unspecified complications E11.8 [facility] [address] [id number] [address] [place] [address] Aug, Type 2 diabetes mellitus wit h unspecified complications E11.8 ; Benign essential hypertension I10 ; Cough R05 ; Acute bronchitis, unspecified organism J20.9 ; Other viral agents as the cause of diseases classified elsewhere B97.89 and Morbid (severe) obesity due to excess calories E66.01 [facility] [address] [facility] [id number] [address] [place] [address] May, Acute seasonal allergic rhin itis, unspecified trigger J30.2 and Candidiasis of penis B37.42 [facility] [place] [address] [facility] [id number] [address] [place] [id number] 14 Dec, 2014 [facility] [place] [address] [facility] [id number] [place] [phone] Dec, [facility] [place] [address] [place] [id number] [place] [id number] Oct, [facility] [place] [address] [place] [id number] [address] [place] [id number] Oct, [facility] [place] [address] [place] [id number] [address] [place] [phone] Dec, [facility] [place] [address] [place] [id number] [address] [place] [address] Dec, [facility] [place] [address] [place] [id number] [address] [place] [address] Dec, [facility] [place] [address] [facility] [id number] [address] [place] [phone] Dec, [facility] [place] [address] [facility] [id number] [address] [place] [id number] Dec, [facility] [place] [address] [place] [id number] [address] [place] [address] Dec, [facility] [place] [address] [facility] [id number] [address] [place] [phone] Nov, [facility] [place] [address] [place] [id number] [address] [place] [id number] Nov, [facility] [address] [id number] [address] [place] [address], [place] [address] May, [facility] [address] [id number] [address] [place] [address], [place] [address] May, [facility] [address] [id number] [address] [place] [address], [place] [address] May, [facility] [address] [id number] [address] [place] [address], [place] [address] May, [facility] [address] [id number] [address] [place] [address], [place] [address] May, [facility] [address] [id number] [address] [place] [address], [place] [address] Apr, [facility] [address] [facility] [address] [id number] [place], [facility] [id number] Mar, [facility] [address] [id number] [address] [place] [phone] Mar, [facility] [address] [id number] [address] [place] [address], [place] [address] Mar, [facility] [address] [id number] [address] [place] [address], [place] [address] Mar, [facility] [address] [id number] [address] [place] [address], [place] [address] Feb, [facility] [address] [id number] [address] [place] [address] Feb, [facility] [address] [id number] [address] [place] [address], [place] [address] Feb, [facility] [address] [id number] [address] [place] [address], [place] [address] Feb, [facility] [address] [id number] [address] [place] [address], [place] [address] January, [facility] [address] [id number] [address] [place] [address], [place] [address] January, [facility] [address] [id number] [address] [place] [address], [place] [address] January, [facility] [address] [id number] [address] [place] [address], [place] [address] January, [facility] [address] [id number] [address] [place] [address], [place] [address] January, [facility] [address] [id number] [address] [place] [address], [place] [address] January, [facility] [address] [id number] [address] [place] [address], [place] [address] January, [facility] [address] [id number] [address] [place] [address], [place] [address] January, [facility] [address] [id number] [address] [place] [address], [place] [address] January, [facility] [address] [id number] [address] [place] [address], [place] [address] Dec, [facility] [address] [id number] [address] [place] [address], [place] [address] Dec, [facility] [address] [id number] [address] [place] [address], [place] [address] Dec, [facility] [address] [id number] [address] [place] [address], [place] [address] Dec, [facility] [address] [id number] [address] [place] [address], [place] [address] Dec, [facility] [address] [id number] [address] [place] [address], [place] [address] Dec, [facility] [address] [id number] [address] [place] [address], [place] [address] Dec, [facility] [address] [id number] [address] [place] [address], [place] [address] Nov, [facility] [place] [address] [id number] [address] [place] [id number] Nov, [facility] [place] [address] [id number] [address] [place] [address] Nov, [facility] [place] [address] [id number] [address] [place] [id number] Oct, [facility] [place] [address] [id number] [address] [place] [address] Oct, [facility] [place] [address] [id number] [address] [place] [address] Oct, [facility] [place] [address] [id number] [address] [place] [phone] Oct, [facility] [place] [address] [id number] [address] [place] [address] Jul, [facility] [place] [address] [id number] [address] [place] [id number] Jun, [facility] [place] [address] [id number] [address] [place] [phone] Jun, [facility] [place] [address] [id number] [address] [place] [address] May, IMMUNIZATIONS No Known Immunizations SOCIAL HISTORY Never Assessed REASON FOR VISIT no-show for DM ed PLAN OF CARE VITAL SIGNS MEDICATIONS Unknown [...] History post surgeries Hospitalization History [facility] [place]- Abd pain 09/24/2017
--- OUTSIDE RECORDS SUMMARY | 2019-11-21 01:53 | XMS REPORT ---
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 Active 88416396 Problem Type 2 diabetes mellitus with unspecified complications E11.8 Active 86094259 Problem BMI 50.0-59.9, adult Z68.43 Active 751718344 Problem Morbid (severe) obesity due to excess calories E66 .01 Active 931880456 Problem group home current use of insulin Z79.4 Active 695732508 Problem Essential hypertension I10 Active 06591379 ALLERGIES No Information ENCOUNTERS Encounter Location Date Diagnosis [facility] [address] [facility] [id number] [address] [place] [address] May, [facility] [address] [facility] [id number] [address] [place] [address] May, [facility] [address] [facility] [id number] [address] [place] [address] Feb, [facility] [address] [facility] [id number] [address] [place] [address] Feb, [facility] [address] [facility] [id number] [address] [place] [address] January, [facility] [address] [facility] [id number] [address] [place] [address] January, [facility] [address] [place] [id number] [address] [place] [address] January, Onychomycosis B35.1 ; Callus of foot L84 and Type 2 diabetes mellitus with unspecified complications E11.8 [facility] [address] [address] January, [facility] [address] [address] January, [facility] [address] [address] January, [facility] [address] [address] January, [facility] [address] [address] January, BMI 50.0-59.9, adult Z68.43 [place] [address] [address] January, [facility] [address] [address] January, Acute respiratory distress R 06.03 and Hypoxia R09.02 [place] [address] [address] January, [facility] [address] [address] January, Shortness of breath on exert ion R06.02 and BMI 50.0-59.9, adult Z68.43 [facility] [address] [address] Dec, BMI 50.0-59.9, adult Z68.43 [facility] [address] [address] Dec, [facility] [address] [address] Dec, [facility] [address] [address] Dec, [place] [address] [address] Nov, [place] [address] [address] Nov, [place] [address] [address] 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, 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 ; Type 2 diabetes mellitus with other diabetic neurological complication E11.49 ; Swelling of both lower extremities M79.89 ; Essential hypertension I10 ; BMI 50.0-59.9, adult Z68.43 and Blurry vision H53.[address] [address] Sep, Right upper quadrant pain R1 0.11 and Blood in stool K92.1 [facility] W[facility] [address] [address] Sep, Asymptomatic microscopic hem aturia R31.21 ; Glucose found in urine on examination R81 and BMI 50.0-59.9, adult Z68.43 [place] [address] [address] Sep, Type 2 diabetes mellitus wit h unspecified complications E11.8 [facility] [place] [address] [address] Aug, Type 2 diabetes mellitus wit h unspecified complications E11.8 ; Benign essential hypertension I10 ; Cough R05 ; Acute bronchitis, unspecified organism J20.9 ; Other viral agents as the cause of diseases classified elsewhere B97.89 and Morbid (severe) obesity due to excess calories E66.01 [facility] WALK IN [address] [address] May, Acute seasonal allergic rhin itis, unspecified trigger J30.2 and Candidiasis of penis B37.[address] [address] Dec, [facility] [address] [id number] [address] [place] [address], [place] [address] 13 Dec, 2014 [facility] [address] [id number] [address] [place] [address], [place] [address] Oct, [facility] [address] [id number] [address] [place] [address], [place] [address] 10 Oct, 2014 [facility] [address] [id number] [address] [place] [address], [place] [address] Dec, [facility] [address] [id number] [address] [place] [address], [place] [address] Dec, [facility] [address] [id number] [address] [place] [address], [place] [address] Dec, [facility] [address] [id number] [address] [place] [address], [place] [address] Dec, [facility] [address] [id number] [address] [place] [address], [place] [address] Dec, [facility] [address] [id number] [address] [place] [address], [place] [address] Dec, [facility] [address] [id number] [address] [place] [address], [place] [address] Nov, [facility] [address] [id number] [address] [place] [address], [place] [address] Nov, [facility] [address] [id number] [address] [place] [address], [place] [address] 23 May, 2013 [facility] [address] [id number] [address] [place] [address], [place] [address] 19 May, 2013 [facility] [address] [id number] [address] [place] [address], [place] [address] 19 May, 2013 [facility] [address] [id number] [address] [place] [address], [place] [address] 17 May, 2013 [facility] [address] [id number] [address] [place] [address] May, [facility] [address] [id number] [address] [place] [address], [place] [address] Apr, [facility] [address] [id number] [place] [id number] Mar, [facility] [address] [id number] [address] [place] [address], [place] [address] Mar, [facility] [address] [id number] [address] [place] [address], [place] [address] Mar, [facility] [address] [id number] [address] [place] [address], [place] [address] Mar, [facility] [address] [id number] [address] [place] [address], [place] [address] Feb, [facility] [address] [id number] [address] [place] [address], [place] [address] Feb, [facility] [address] [id number] [address] [place] [address], [place] [address] Feb, [facility] [address] [id number] [address] [place] [address], [place] [address] Feb, [facility] [address] [id number] [address] [place] [address], [place] [address] January, [facility] [address] [id number] [address] [place] [address], [place] [address] January, [facility] [address] [id number] [address] [place] [address], [place] [address] January, [facility] [address] [id number] [address] [place] [address], [place] [address] January, [facility] [address] [id number] [address] [place] [address], [place] [address] January, [facility] [address] [id number] [address] [place] [address], [place] [address] January, [facility] [address] [id number] [address] [place] [address], [place] [address] January, [facility] [address] [id number] [address] [place] [address], [place] [address] January, [facility] [address] [id number] [address] [place] [address], [place] [address] January, [facility] [address] [id number] [address] [place] [address], [place] [address] 23 Dec, 2012 [facility] [address] [id number] [address] [place] [address], [place] [address] 18 Dec, 2012 [facility] [address] [id number] [address] [place] [address], [place] [address] 17 Dec, 2012 [facility] [address] [id number] [address] [place] [address], [place] [address] 16 Dec, 2012 [facility] [address] [id number] [address] [place] [address], [place] [address] 16 Dec, 2012 [facility] [address] [id number] [address] [place] [address], [place] [address] Dec, [facility] [address] [id number] [address] [place] [address], [place] [address] Dec, [facility] [address] [id number] [address] [place] [address], [place] [address] 26 Nov, 2012 [facility] [address] [id number] [address] [place] [address], [place] [address] Nov, [facility] [address] [id number] [address] [place] [address], [place] [address] 14 Nov, 2012 [facility] [address] [id number] [address] [place] [address], [place] [address] 28 Oct, 2012 [facility] [address] [id number] [address] [place] [address], [place] [address] 13 Oct, 2012 [facility] [address] [id number] [address] [place] [address], [place] [address] Oct, [facility] [address] [facility] [id number] [address] [place] [address] Oct, [facility] [address] [facility] [id number] [address] [place] [address] Jul, [facility] [address] [facility] [id number] [address] [place] [address] Jun, [facility] [address] [facility] [id number] [address] [place] [address] Jun, [facility] [address] [facility] [id number] [address] [place] [address] May, IMMUNIZATIONS No Known Immunizations SOCIAL HISTORY Never Assessed REASON FOR VISIT DM ed attempt PLAN OF CARE VITAL SIGNS MEDICATIONS Unknown [...] History post surgeries Hospitalization History [facility]- Abd pain 09/24/2017
--- OUTSIDE RECORDS SUMMARY | 2019-11-21 01:53 | XMS REPORT ---
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 Active 37032999 Problem Type 2 diabetes mellitus with unspecified complications E11.8 Active 93689986 Problem BMI 50.0-59.9, adult Z68.43 Active 905814883 Problem Morbid (severe) obesity due to excess calories E66 .01 Active 669875439 Problem retirement current use of insulin Z79.4 Active 525650211 Problem Essential hypertension I10 Active [id number] ALLERGIES No Information ENCOUNTERS Encounter Location Date Diagnosis [facility] [address] [facility] [id number] [address] [place] [address] May, [facility] [address] [facility] [id number] [address] [place] [address] May, [facility] [address] [facility] [id number] [address] [place] [address] Apr, [facility] [address] [facility] [id number] [address] [place] [address] Feb, [facility] [address] [facility] [id number] [address] [place] [address] Feb, [facility] [address] [facility] [id number] [address] [place] [address] January, [facility] [address] [facility] [id number] [address] [place] [address] January, [facility] [address] [address] January, Onychomycosis B35.1 ; Callus of foot L84 and Type 2 diabetes mellitus with unspecified complications E11.8 [facility] [address] [address] January, [facility] [address] [address] January, [facility] [address] [address] January, [facility] [address] [address] January, [place] [address] [address] January, BMI 50.0-59.9, adult Z68.43 [place] [address] [address] January, [place] [address] [address] January, Acute respiratory distress R 06.03 and Hypoxia R09.02 [place] [address] [address] January, [place] [address] [address] January, Shortness of breath on exert ion R06.02 and BMI 50.0-59.9, adult Z68.43 [place] [address] [address] Dec, BMI 50.0-59.9, adult Z68.43 [facility] [address] [address] Dec, [facility] [address] [address] Dec, [place] [address] [address] Dec, [place] [address] [address] Nov, [place] [address] [address] Nov, [address] [address] Oct, retirement current use of ins ulin Z79.4 ; Type 2 diabetes mellitus with other diabetic neurological complication E11.49 ; Swelling of both lower extremities M79.89 ; Essential hypertension I10 ; BMI 50.0-59.9, adult Z68.43 and Blurry vision H53.[address] [address] Sep, Right upper quadrant pain R1 0.11 and Blood in stool K92.1 [facility] [address] [address] Sep, Asymptomatic microscopic hem aturia R31.21 ; Glucose found in urine on examination R81 and BMI 50.0-59.9, adult Z68.[address] [address] Sep, Type 2 diabetes mellitus wit h unspecified complications E11.8 [facility] [address] [address] Aug, Type 2 diabetes mellitus wit h unspecified complications E11.8 ; Benign essential hypertension I10 ; Cough R05 ; Acute bronchitis, unspecified organism J20.9 ; Other viral agents as the cause of diseases classified elsewhere B97.89 and Morbid (severe) obesity due to excess calories E66.01 [facility] [address] [address] May, Acute seasonal allergic rhin itis, unspecified trigger J30.2 and Candidiasis of penis B37.42 [facility] [address] [id number] [address] [place] [address], [place] [address] 14 Dec, 2014 [facility] [address] [id number] [address] [place] [address], [place] [address] Dec, [facility] [address] [id number] [address] [place] [address], [place] [address] 10 Oct, 2014 [facility] [address] [id number] [address] [place] [address], [place] [address] 10 Oct, 2014 [facility] [address] [id number] [address] [place] [address], [place] [address] 24 Dec, 2013 [facility] [address] [id number] [address] [place] [address], [place] [address] Dec, [facility] [address] [id number] [address] [place] [address], [place] [address] Dec, [facility] [address] [id number] [address] [place] [address], [place] [address] Dec, [facility] [address] [id number] [address] [place] [address], [place] [address] Dec, [facility] [address] [id number] [address] [place] [address], [place] [address] Dec, [facility] [address] [id number] [address] [place] [address], [place] [address] Nov, [facility] [address] [id number] [address] [place] [address], [place] [address] Nov, [facility] [address] [id number] [address] [place] [address], [place] [address] May, [facility] [address] [id number] [address] [place] [address], [place] [address] May, [facility] [address] [id number] [address] [place] [address], [place] [address] May, [facility] [address] [id number] [address] [place] [address] May, [facility] [address] [id number] [address] [place] [address], [place] [address] May, [facility] [address] [id number] [address] [place] [address], [place] [address] Apr, [facility] [place] [address] [id number] [place] [id number] Mar, [facility] [address] [id number] [address] [place] [address], [place] [address] Mar, [facility] [address] [id number] [address] [place] [address], [place] [address] Mar, [facility] [address] [id number] [address] [place] [address], [place] [address] Mar, [facility] [address] [id number] [address] [place] [address], [place] [address] Feb, [facility] [address] [id number] [address] [place] [address], [place] [address] Feb, [facility] [address] [id number] [address] [place] [address], [place] [address] Feb, [facility] [address] [id number] [address] [place] [address], [place] [address] Feb, [facility] [address] [id number] [address] [place] [address], [place] [address] January, [facility] [address] [id number] [address] [place] [address], [place] [address] January, [facility] [address] [id number] [address] [place] [address], [place] [address] January, [facility] [address] [id number] [address] [place] [address], [place] [address] January, [facility] [address] [id number] [address] [place] [address], [place] [address] January, [facility] [address] [id number] [address] [place] [address], [place] [address] January, [facility] [address] [id number] [address] [place] [address], [place] [address] January, [facility] [address] [id number] [address] [place] [address], [place] [address] January, [facility] [address] [id number] [address] [place] [address], [place] [address] January, [facility] [address] [id number] [address] [place] [address], [place] [address] 23 Dec, 2012 [facility] [address] [id number] [address] [place] [address], [place] [address] Dec, [facility] [address] [id number] [address] [place] [address], [place] [address] 17 Dec, 2012 [facility] [address] [id number] [address] [place] [address], [place] [address] 16 Dec, 2012 [facility] [address] [id number] [address] [place] [address], [place] [address] 16 Dec, 2012 [facility] [address] [id number] [address] [place] [address], [place] [address] Dec, [facility] [address] [id number] [address] [place] [address], [place] [address] Dec, [facility] [address] [id number] [address] [place] [address], [place] [address] Nov, [facility] [address] [id number] [address] [place] [address], [place] [address] 21 Nov, 2012 [facility] [address] [id number] [address] [place] [address], [place] [address] 14 Nov, 2012 [facility] [address] [id number] [address] [place] [address], [place] [address] 28 Oct, 2012 [facility] [address] [id number] [address] [place] [address], [place] [address] 13 Oct, 2012 [facility] [place] [address] [facility] [id number] [address] [place] [phone] Oct, [facility] [place] [address] [facility] [id number] [address] [place] [phone] Oct, [facility] [place] [address] [facility] [id number] [address] [place] [phone] Jul, [facility] [place] [address] [facility] [id number] [address] [place] [phone] Jun, [facility] [place] [address] [facility] [id number] [address] [place] [phone] Jun, [facility] [place] [address] [facility] [id number] [address] [place] [phone] May, IMMUNIZATIONS No Known Immunizations SOCIAL HISTORY [...] History post surgeries Hospitalization History [facility]- Abd pain 09/24/2017
--- OUTSIDE RECORDS SUMMARY | 2019-11-21 01:53 | XMS REPORT ---
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 Active 94859255 Problem Type 2 diabetes mellitus with unspecified complications E11.8 Active 36286847 Problem BMI 50.0-59.9, adult Z68.43 Active 768859508 Problem Morbid (severe) obesity due to excess calories E66 .01 Active 390860785 Problem MCC current use of insulin Z79.4 Active 899050500 Problem Essential hypertension I10 Active 33450380 ALLERGIES No Information ENCOUNTERS Encounter Location Date Diagnosis [facility] [address] [facility] [id number] [address] [place] [address] May, [facility] [address] [facility] [id number] [address] [place] [address] May, [facility] [address] [facility] [id number] [address] [place] [address] Feb, [facility] [address] [facility] [id number] [address] [place] [address] Feb, [facility] [address] [facility] [id number] [address] [place] [address] January, [facility] [address] [facility] [id number] [address] [place] [address] January, [facility] [address] [place] [id number] [address] [place] [address] January, Onychomycosis B35.1 ; Callus of foot L84 and Type 2 diabetes mellitus with unspecified complications E11.8 [facility] [address] [address] January, [facility] [address] [address] January, [facility] [address] [address] January, [facility] [address] [address] January, [facility] [address] [address] January, BMI 50.0-59.9, adult Z68.43 [place] [address] [address] January, [facility] [address] [address] January, Acute respiratory distress R 06.03 and Hypoxia R09.02 [place] [address] [address] January, [facility] [address] [address] January, Shortness of breath on exert ion R06.02 and BMI 50.0-59.9, adult Z68.43 [facility] [address] [address] Dec, BMI 50.0-59.9, adult Z68.43 [facility] [address] [address] Dec, [facility] [address] [address] Dec, [facility] [address] [address] Dec, [place] [address] [address] Nov, [place] [address] [address] Nov, [place] [address] [address] 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, 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 [place] [address] [address] Aug, Type 2 diabetes mellitus wit h unspecified complications E11.8 ; Benign essential hypertension I10 ; Cough R05 ; Acute bronchitis, unspecified organism J20.9 ; Other viral agents as the cause of diseases classified elsewhere B97.89 and Morbid (severe) obesity due to excess calories E66.01 [facility] [address] [address] May, Acute seasonal allergic rhin itis, unspecified trigger J30.2 and Candidiasis of penis B37.[address] [address] Dec, [facility] [address] [id number] [address] [place] [address], [place] [address] 13 Dec, 2014 [facility] [address] [id number] [address] [place] [address], [place] [address] Oct, [facility] [address] [id number] [address] [place] [address], [place] [address] 10 Oct, 2014 [facility] [address] [id number] [address] [place] [address], [place] [address] Dec, [facility] [address] [id number] [address] [place] [address], [place] [address] Dec, [facility] [address] [id number] [address] [place] [address], [place] [address] Dec, [facility] [address] [id number] [address] [place] [address], [place] [address] Dec, [facility] [address] [id number] [address] [place] [address], [place] [address] Dec, [facility] [address] [id number] [address] [place] [address], [place] [address] Dec, [facility] [address] [id number] [address] [place] [address], [place] [address] Nov, [facility] [address] [id number] [address] [place] [address], [place] [address] Nov, [facility] [address] [id number] [address] [place] [address], [place] [address] 23 May, 2013 [facility] [address] [id number] [address] [place] [address], [place] [address] 19 May, 2013 [facility] [address] [id number] [address] [place] [address], [place] [address] 19 May, 2013 [facility] [address] [id number] [address] [place] [address], [place] [address] 17 May, 2013 [facility] [address] [id number] [address] [place] [address] May, [facility] [address] [id number] [address] [place] [address], [place] [address] Apr, [facility] [address] [id number] [facility] [place] [id number] Mar, [facility] [address] [id number] [address] [place] [address], [place] [address] Mar, [facility] [address] [id number] [address] [place] [address], [place] [address] Mar, [facility] [address] [id number] [address] [place] [address], [place] [address] Mar, [facility] [address] [id number] [address] [place] [address], [place] [address] Feb, [facility] [address] [id number] [address] [place] [address], [place] [address] Feb, [facility] [address] [id number] [address] [place] [address], [place] [address] Feb, [facility] [address] [id number] [address] [place] [address], [place] [address] Feb, [facility] [address] [id number] [address] [place] [address], [place] [address] January, [facility] [address] [id number] [address] [place] [address], [place] [address] January, [facility] [address] [id number] [address] [place] [address], [place] [address] January, [facility] [address] [id number] [address] [place] [address], [place] [address] January, [facility] [address] [id number] [address] [place] [address], [place] [address] January, [facility] [address] [id number] [address] [place] [address], [place] [address] January, [facility] [address] [id number] [address] [place] [address], [place] [address] January, [facility] [address] [id number] [address] [place] [address], [place] [address] January, [facility] [address] [id number] [address] [place] [address], [place] [address] January, [facility] [address] [id number] [address] [place] [address], [place] [address] 23 Dec, 2012 [facility] [address] [id number] [address] [place] [address], [place] [address] 18 Dec, 2012 [facility] [address] [id number] [address] [place] [address], [place] [address] 17 Dec, 2012 [facility] [address] [id number] [address] [place] [address], [place] [address] 16 Dec, 2012 [facility] [address] [id number] [address] [place] [address], [place] [address] 16 Dec, 2012 [facility] [address] [id number] [address] [place] [address], [place] [address] Dec, [facility] [address] [id number] [address] [place] [address], [place] [address] Dec, [facility] [address] [id number] [address] [place] [address], [place] [address] 26 Nov, 2012 [facility] [address] [id number] [address] [place] [address], [place] [address] Nov, [facility] [address] [id number] [address] [place] [address], [place] [address] 14 Nov, 2012 [facility] [address] [id number] [address] [place] [address], [place] [address] 28 Oct, 2012 [facility] [address] [id number] [address] [place] [address], [place] [address] 13 Oct, 2012 [facility] [address] [id number] [address] [place] [address], [place] [address] Oct, [facility] [address] [facility] [id number] [address] [place] [address] Oct, [facility] [address] [facility] [id number] [address] [place] [address] Jul, [facility] [address] [facility] [id number] [address] [place] [address] Jun, [facility] [address] [facility] [id number] [address] [place] [address] Jun, [facility] [address] [facility] [id number] [address] [place] [address] May, IMMUNIZATIONS No Known Immunizations SOCIAL HISTORY Never Assessed REASON FOR VISIT CCM/BP note PLAN OF CARE VITAL SIGNS MEDICATIONS Unknown [...] History post surgeries Hospitalization History [facility] [place]- Abd pain 09/24/2017
--- OUTSIDE RECORDS SUMMARY | 2019-11-21 01:53 | XMS REPORT ---
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 Active 09130967 Problem Type 2 diabetes mellitus with unspecified complications E11.8 Active 03956493 Problem BMI 50.0-59.9, adult Z68.43 Active 753090179 Problem Morbid (severe) obesity due to excess calories E66 .01 Active 501456141 Problem [facility] current use of insulin Z79.4 Active 407165300 Problem Essential hypertension I10 Active 42786017 ALLERGIES No Information ENCOUNTERS Encounter Location Date Diagnosis [facility] [address] [facility] [id number] [address] [place] [address] May, [facility] [address] [facility] [id number] [address] [place] [address] May, [facility] [address] [facility] [id number] [address] [place] [address] Apr, [facility] [address] [facility] [id number] [address] [place] [address] Feb, [facility] [address] [facility] [id number] [address] [place] [address] Feb, [facility] [address] [facility] [id number] [address] [place] [address] January, [facility] [address] [facility] [id number] [address] [place] [address] January, [facility] [address] [address] January, Onychomycosis B35.1 ; Callus of foot L84 and Type 2 diabetes mellitus with unspecified complications E11.8 [facility] [address] [address] January, [facility] [address] [address] January, [facility] [address] [address] January, [facility] [address] [address] January, [place] [address] [address] January, BMI 50.0-59.9, adult Z68.43 [place] [address] [address] January, [place] [address] [address] January, Acute respiratory distress R 06.03 and Hypoxia R09.02 [place] [address] [address] January, [place] [address] [address] January, Shortness of breath on exert ion R06.02 and BMI 50.0-59.9, adult Z68.43 [place] [address] [address] Dec, BMI 50.0-59.9, adult Z68.43 [facility] [address] [address] Dec, [facility] [address] [address] Dec, [place] [address] [address] Dec, [place] [address] [address] Nov, [place] [address] [address] Nov, [address] [address] Oct, [facility] current use of ins ulin Z79.4 ; Type 2 diabetes mellitus with other diabetic neurological complication E11.49 ; Swelling of both lower extremities M79.89 ; Essential hypertension I10 ; BMI 50.0-59.9, adult Z68.43 and Blurry vision H53.[address] [address] Sep, Right upper quadrant pain R1 0.11 and Blood in stool K92.1 [facility] [address] [address] Sep, Asymptomatic microscopic hem aturia R31.21 ; Glucose found in urine on examination R81 and BMI 50.0-59.9, adult Z68.[address] [address] Sep, Type 2 diabetes mellitus wit h unspecified complications E11.8 [facility] [address] [address] Aug, Type 2 diabetes mellitus wit h unspecified complications E11.8 ; Benign essential hypertension I10 ; Cough R05 ; Acute bronchitis, unspecified organism J20.9 ; Other viral agents as the cause of diseases classified elsewhere B97.89 and Morbid (severe) obesity due to excess calories E66.01 [facility] [address] [address] May, Acute seasonal allergic rhin itis, unspecified trigger J30.2 and Candidiasis of penis B37.42 [facility] [address] [id number] [address] [place] [address], [place] [address] 14 Dec, 2014 [facility] [address] [id number] [address] [place] [address], [place] [address] Dec, [facility] [address] [id number] [address] [place] [address], [place] [address] 10 Oct, 2014 [facility] [address] [id number] [address] [place] [address], [place] [address] 10 Oct, 2014 [facility] [address] [id number] [address] [place] [address], [place] [address] 24 Dec, 2013 [facility] [address] [id number] [address] [place] [address], [place] [address] Dec, [facility] [address] [id number] [address] [place] [address], [place] [address] Dec, [facility] [address] [id number] [address] [place] [address], [place] [address] Dec, [facility] [address] [id number] [address] [place] [address], [place] [address] Dec, [facility] [address] [id number] [address] [place] [address], [place] [address] Dec, [facility] [address] [id number] [address] [place] [address], [place] [address] Nov, [facility] [address] [id number] [address] [place] [address], [place] [address] Nov, [facility] [address] [id number] [address] [place] [address], [place] [address] May, [facility] [address] [id number] [address] [place] [address], [place] [address] May, [facility] [address] [id number] [address] [place] [address], [place] [address] May, [facility] [address] [id number] [address] [place] [address] May, [facility] [address] [id number] [address] [place] [address], [place] [address] May, [facility] [address] [id number] [address] [place] [address], [place] [address] Apr, [facility] [place] [address] [id number] [id number] Mar, [facility] [address] [id number] [address] [place] [address], [place] [address] Mar, [facility] [address] [id number] [address] [place] [address], [place] [address] Mar, [facility] [address] [id number] [address] [place] [address], [place] [address] Mar, [facility] [address] [id number] [address] [place] [address], [place] [address] Feb, [facility] [address] [id number] [address] [place] [address], [place] [address] Feb, [facility] [address] [id number] [address] [place] [address], [place] [address] Feb, [facility] [address] [id number] [address] [place] [address], [place] [address] Feb, [facility] [address] [id number] [address] [place] [address], [place] [address] January, [facility] [address] [id number] [address] [place] [address], [place] [address] January, [facility] [address] [id number] [address] [place] [address], [place] [address] January, [facility] [address] [id number] [address] [place] [address], [place] [address] January, [facility] [address] [id number] [address] [place] [address], [place] [address] January, [facility] [address] [id number] [address] [place] [address], [place] [address] January, [facility] [address] [id number] [address] [place] [address], [place] [address] January, [facility] [address] [id number] [address] [place] [address], [place] [address] January, [facility] [address] [id number] [address] [place] [address], [place] [address] January, [facility] [address] [id number] [address] [place] [address], [place] [address] 23 Dec, 2012 [facility] [address] [id number] [address] [place] [address], [place] [address] Dec, [facility] [address] [id number] [address] [place] [address], [place] [address] 17 Dec, 2012 [facility] [address] [id number] [address] [place] [address], [place] [address] 16 Dec, 2012 [facility] [address] [id number] [address] [place] [address], [place] [address] 16 Dec, 2012 [facility] [address] [id number] [address] [place] [address], [place] [address] Dec, [facility] [address] [id number] [address] [place] [address], [place] [address] Dec, [facility] [address] [id number] [address] [place] [address], [place] [address] Nov, [facility] [address] [id number] [address] [place] [address], [place] [address] 21 Nov, 2012 [facility] [address] [id number] [address] [place] [address], [place] [address] 14 Nov, 2012 [facility] [address] [id number] [address] [place] [address], [place] [address] 28 Oct, 2012 [facility] [address] [id number] [address] [place] [address], [place] [address] 13 Oct, 2012 [facility] [address] [facility] [id number] [address] [place] [address] Oct, [facility] [address] [facility] [id number] [address] [place] [address] Oct, [facility] [address] [facility] [id number] [address] [place] [address] Jul, [facility] [address] [facility] [id number] [address] [place] [address] Jun, [facility] [address] [facility] [id number] [address] [place] [address] Jun, [facility] [address] [facility] [id number] [address] [place] [address] May, IMMUNIZATIONS No Known Immunizations SOCIAL HISTORY Never Assessed REASON FOR VISIT ER Follow up per ER. Still waiting on ER records. , Pt very lethargic. Shal low breathing and initial o2 sat of 91%. -KWAME Yin PLAN OF CARE Activity Details Follow Up Patient to ER Reason: VITAL SIGNS Height 69 in 2018-01-09 Temperature 98.5 degrees Fahrenheit 2018-01-09 Heart Rate 103 bpm 2018-01-09 Respiratory Rate 12 2018-01-09 Oximetry 91 % 2018-01-09 Blood pressure systolic 100 mmHg 2018-01-09 Blood pressure diastolic 60 mmHg 2018-01-09 MEDICATIONS Medication Instructions Dosage Frequency Start Date End Date Duration S tatus Zyrtec Allergy 10 MG Orally Once a day 1 tablet 24h Active HydrOXYzine HCl 25 mg 1 tablet by Oral route 2 times p er day PRN Feb, Active Fluconazole 150 MG 1 tablet Acti ve Vitamin E Active Multivitamin by Oral route once daily. Oct, Active Lasix 40 MG Orally Once a day 1 tablet 24h A ctive Mupirocin 2 % Externally Three times a day 1 application to affected area 8h Active Lisinopril 40 mg Orally Once a day 1 tablet 24h Aug, 30 day(s) Active Accu-Chek Angela Plus 1 subcutaneously 3 times a day test 3 times pe r day 8h Aug, 12 months Active Potassium Chloride ER 10 MEQ Orally Once a day 1 tablet with food 24h Active Pen [place] 32G X 4 MM as directed Oct, Active Metformin HCl 1000 MG Orally 2 times a day 1 tablet 12h Active Invega Trinza 819 MG/2.625ML Intramuscular Q 3 months 2.625 ml Active Haloperidol 2 MG Orally TID PRN 1 tablet Active Benztropine Mesylate 0.5 MG Orally TID PRN 1 tablet Active Basaglar KwikPen 100 UNIT/ML Subcutaneous 100 units 2 times a day a s directed Sep, Active Amlodipine Besylate 5 TAKE ONE TABLET BY MOUTH DAILY 30 Active Metformin HCl 850 MG Orally 3 times a day 1 tablet with meals 8h Active Fish Oil 1000 MG Orally Once a day 1 capsule 24h Active Sucralfate 1 GM Orally 4 times a day 1 tablet 6h Active NovoLog 100 UNIT/ML Subcutaneous 3 times a day per sliding scale 8h Active Oxycodone HCl 10 MG Orally every 6 hrs 1 tablet as needed 6h Active Triamcinolone Acetonide 0.5 % Externally Twice a day as need ed 1 application to affected area Oct, Active Omeprazole 40 mg by oral route 2 times a day 1 capsule 12h Feb, 2 013 Active RESULTS No Results PROCEDURES Procedure Date Ordered Result Body Site [facility] VISIT ESTABLISHED PATIENT January 09, 2018 INSTRUCTIONS MEDICATIONS ADMINISTERED No Known Medications MEDICAL (GENERAL) HISTORY Type Description Date Medical History bleeding ulcer Medical History type 2 diabetes Medical History stents in pancreas Medical History hypertension Medical History schizophrenia Surgical History bilateral knees...scopes Surgical History stent placed in pancreas Surgical History stent removed form pancreas Hospitalization History post surgeries Hospitalization History [facility] [place]- Abd pain 09/24/2017
--- OUTSIDE RECORDS SUMMARY | 2019-11-21 01:53 | XMS REPORT ---
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 Active 54615631 Problem Type 2 diabetes mellitus with unspecified complications E11.8 Active 89160208 Problem BMI 50.0-59.9, adult Z68.43 Active 000993012 Problem Morbid (severe) obesity due to excess calories E66 .01 Active 721263873 Problem retirement current use of insulin Z79.4 Active 174443765 Problem Essential hypertension I10 Active 59563601 ALLERGIES No Information ENCOUNTERS Encounter Location Date Diagnosis [facility] [address] [facility] [id number] [address] [place] [address] May, [facility] [address] [facility] [id number] [address] [place] [address] May, [facility] [address] [facility] [id number] [address] [place] [address] Feb, [facility] [address] [facility] [id number] [address] [place] [address] Feb, [facility] [address] [facility] [id number] [address] [place] [address] January, [facility] [address] [facility] [id number] [address] [place] [address] January, [facility] [address] [place] [id number] [address] [place] [address] January, Onychomycosis B35.1 ; Callus of foot L84 and Type 2 diabetes mellitus with unspecified complications E11.8 [facility] [address] [address] January, [facility] [address] [address] January, [facility] [address] [address] January, [facility] [address] [address] January, [facility] [address] [address] January, BMI 50.0-59.9, adult Z68.43 [place] [address] [address] January, [facility] [address] [address] January, Acute respiratory distress R 06.03 and Hypoxia R09.02 [place] [address] [address] January, [facility] [address] [address] January, Shortness of breath on exert ion R06.02 and BMI 50.0-59.9, adult Z68.43 [facility] [address] [address] Dec, BMI 50.0-59.9, adult Z68.43 [facility] [address] [address] Dec, [facility] [address] [address] Dec, [facility] [address] [address] Dec, [place] [address] [address] Nov, [place] [address] [address] Nov, [place] [address] [address] 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, 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 ; Type 2 diabetes mellitus with other diabetic neurological complication E11.49 ; Swelling of both lower extremities M79.89 ; Essential hypertension I10 ; BMI 50.0-59.9, adult Z68.43 and Blurry vision H53.[address] [address] Sep, Right upper quadrant pain R1 0.11 and Blood in stool K92.1 [facility] [address] [address] Sep, Asymptomatic microscopic hem aturia R31.21 ; Glucose found in urine on examination R81 and BMI 50.0-59.9, adult Z68.43 [place] [address] [address] Sep, Type 2 diabetes mellitus wit h unspecified complications E11.8 [facility] [address] [address] Aug, Type 2 diabetes mellitus wit h unspecified complications E11.8 ; Benign essential hypertension I10 ; Cough R05 ; Acute bronchitis, unspecified organism J20.9 ; Other viral agents as the cause of diseases classified elsewhere B97.89 and Morbid (severe) obesity due to excess calories E66.01 [facility] [address] [address] May, Acute seasonal allergic rhin itis, unspecified trigger J30.2 and Candidiasis of penis B37.[address] [address] Dec, [facility] [address] [id number] [address] [place] [address], [place] [address] 13 Dec, 2014 [facility] [address] [id number] [address] [place] [address], [place] [address] Oct, [facility] [address] [id number] [address] [place] [address], [place] [address] 10 Oct, 2014 [facility] [address] [id number] [address] [place] [address], [place] [address] Dec, [facility] [address] [id number] [address] [place] [address], [place] [address] Dec, [facility] [address] [id number] [address] [place] [address], [place] [address] Dec, [facility] [address] [id number] [address] [place] [address], [place] [address] Dec, [facility] [address] [id number] [address] [place] [address], [place] [address] Dec, [facility] [address] [id number] [address] [place] [address], [place] [address] Dec, [facility] [address] [id number] [address] [place] [address], [place] [address] Nov, [facility] [address] [id number] [address] [place] [address], [place] [address] Nov, [facility] [address] [id number] [address] [place] [address], [place] [address] 23 May, 2013 [facility] [address] [id number] [address] [place] [address], [place] [address] 19 May, 2013 [facility] [address] [id number] [address] [place] [address], [place] [address] 19 May, 2013 [facility] [address] [id number] [address] [place] [address], [place] [address] 17 May, 2013 [facility] [address] [id number] [address] [place] [address] May, [facility] [address] [id number] [address] [place] [address], [place] [address] Apr, [facility] [address] [id number] [place] [place] [id number] Mar, [facility] [address] [id number] [address] [place] [address], [place] [address] Mar, [facility] [address] [id number] [address] [place] [address], [place] [address] Mar, [facility] [address] [id number] [address] [place] [address], [place] [address] Mar, [facility] [address] [id number] [address] [place] [address], [place] [address] Feb, [facility] [address] [id number] [address] [place] [address], [place] [address] Feb, [facility] [address] [id number] [address] [place] [address], [place] [address] Feb, [facility] [address] [id number] [address] [place] [address], [place] [address] Feb, [facility] [address] [id number] [address] [place] [address], [place] [address] January, [facility] [address] [id number] [address] [place] [address], [place] [address] January, [facility] [address] [id number] [address] [place] [address], [place] [address] January, [facility] [address] [id number] [address] [place] [address], [place] [address] January, [facility] [address] [id number] [address] [place] [address], [place] [address] January, [facility] [address] [id number] [address] [place] [address], [place] [address] January, [facility] [address] [id number] [address] [place] [address], [place] [address] January, [facility] [address] [id number] [address] [place] [address], [place] [address] January, [facility] [address] [id number] [address] [place] [address], [place] [address] January, [facility] [address] [id number] [address] [place] [address], [place] [address] 23 Dec, 2012 [facility] [address] [id number] [address] [place] [address], [place] [address] 18 Dec, 2012 [facility] [address] [id number] [address] [place] [address], [place] [address] 17 Dec, 2012 [facility] [address] [id number] [address] [place] [address], [place] [address] 16 Dec, 2012 [facility] [address] [id number] [address] [place] [address], [place] [address] 16 Dec, 2012 [facility] [address] [id number] [address] [place] [address], [place] [address] Dec, [facility] [address] [id number] [address] [place] [address], [place] [address] Dec, [facility] [address] [id number] [address] [place] [address], [place] [address] 26 Nov, 2012 [facility] [address] [id number] [address] [place] [address], [place] [address] Nov, [facility] [address] [id number] [address] [place] [address], [place] [address] 14 Nov, 2012 [facility] [address] [id number] [address] [place] [address], [place] [address] 28 Oct, 2012 [facility] [address] [id number] [address] [place] [address], [place] [address] 13 Oct, 2012 [facility] [address] [id number] [address] [place] [address], [place] [address] Oct, [facility] [address] [facility] [id number] [address] [place] [address] Oct, [facility] [address] [facility] [id number] [address] [place] [address] Jul, [facility] [address] [facility] [id number] [address] [place] [address] Jun, [facility] [address] [facility] [id number] [address] [place] [address] Jun, [facility] [address] [facility] [id number] [address] [place] [address] May, IMMUNIZATIONS No Known Immunizations SOCIAL HISTORY Never Assessed REASON FOR VISIT DM ed attempt; insulin mgnt attempt PLAN OF CARE VITAL SIGNS MEDICATIONS [...] History post surgeries Hospitalization History [facility]- Abd pain 09/24/2017
--- OUTSIDE RECORDS SUMMARY | 2019-11-21 01:53 | XMS REPORT ---
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 Active 27237173 Problem Type 2 diabetes mellitus with unspecified complications E11.8 Active 95421127 Problem BMI 50.0-59.9, adult Z68.43 Active 861047592 Problem Morbid (severe) obesity due to excess calories E66 .01 Active 982302342 Problem intermediate current use of insulin Z79.4 Active 516385729 Problem Essential hypertension I10 Active 74451285 ALLERGIES No Information ENCOUNTERS Encounter Location Date Diagnosis [facility] [address] [facility] [id number] [address] [place] [address] May, [facility] [address] [facility] [id number] [address] [place] [address] May, [facility] [address] [facility] [id number] [address] [place] [phone] Feb, [facility] [address] [facility] [id number] [address] [place] [address] Feb, [facility] [address] [facility] [id number] [address] [place] [address] January, [facility] [address] [facility] [id number] [address] [place] [address] January, [facility] [address] [place] [id number] [address] [place] [address] January, Onychomycosis B35.1 ; Callus of foot L84 and Type 2 diabetes mellitus with unspecified complications E11.8 [facility] [address] [address] January, [facility] [address] [address] January, [facility] [address] [address] January, [facility] [address] [address] January, [facility] [address] [address] January, BMI 50.0-59.9, adult Z68.43 [place] [address] [address] January, [facility] [address] [address] January, Acute respiratory distress R 06.03 and Hypoxia R09.02 [place] [address] [address] January, [facility] [address] [address] January, Shortness of breath on exert ion R06.02 and BMI 50.0-59.9, adult Z68.43 [facility] [address] [address] Dec, BMI 50.0-59.9, adult Z68.43 [facility] [address] [address] Dec, [facility] [address] [address] Dec, [facility] [address] [address] Dec, [place] [address] [address] Nov, [place] [address] [address] Nov, [place] [address] [address] Oct, manager intermediate current use of ins ulin Z79.4 ; Type 2 diabetes mellitus with other diabetic neurological complication E11.49 ; Swelling of both lower extremities M79.89 ; Essential hypertension I10 ; BMI 50.0-59.9, adult Z68.43 and Blurry vision H53.[address] [address] Sep, Right upper quadrant pain R1 0.11 and Blood in stool K92.1 [facility] [address] [address] Sep, Asymptomatic microscopic hem aturia R31.21 ; Glucose found in urine on examination R81 and BMI 50.0-59.9, adult Z68.43 [place] [address] [address] Sep, Type 2 diabetes mellitus wit h unspecified complications E11.8 [facility] [address] [address] Aug, Type 2 diabetes mellitus wit h unspecified complications E11.8 ; Benign essential hypertension I10 ; Cough R05 ; Acute bronchitis, unspecified organism J20.9 ; Other viral agents as the cause of diseases classified elsewhere B97.89 and Morbid (severe) obesity due to excess calories E66.01 [facility] [address] [address] May, Acute seasonal allergic rhin itis, unspecified trigger J30.2 and Candidiasis of penis B37.[address] [address] Dec, [facility] [address] [id number] [address] [place] [address], [place] [address] 13 Dec, 2014 [facility] [address] [id number] [address] [place] [address], [place] [address] Oct, [facility] [address] [id number] [address] [place] [address], [place] [address] 10 Oct, 2014 [facility] [address] [id number] [address] [place] [address], [place] [address] Dec, [facility] [address] [id number] [address] [place] [address], [place] [address] Dec, [facility] [address] [id number] [address] [place] [address], [place] [address] Dec, [facility] [address] [id number] [address] [place] [address], [place] [address] Dec, [facility] [address] [id number] [address] [place] [address], [place] [address] Dec, [facility] [address] [id number] [address] [place] [address], [place] [address] Dec, [facility] [address] [id number] [address] [place] [address], [place] [address] Nov, [facility] [address] [id number] [address] [place] [address], [place] [address] Nov, [facility] [address] [id number] [address] [place] [address], [place] [address] 23 May, 2013 [facility] [address] [id number] [address] [place] [address], [place] [address] 19 May, 2013 [facility] [address] [id number] [address] [place] [address], [place] [address] 19 May, 2013 [facility] [address] [id number] [address] [place] [address], [place] [address] 17 May, 2013 [facility] [address] [id number] [address] [place] [address] May, [facility] [address] [id number] [address] [place] [address], [place] [address] Apr, [facility] [place] [address] [id number] [facility] [place] [id number] Mar, [facility] [address] [id number] [address] [place] [address], [place] [address] Mar, [facility] [address] [id number] [address] [place] [address], [place] [address] Mar, [facility] [address] [id number] [address] [place] [address], [place] [address] Mar, [facility] [address] [id number] [address] [place] [address], [place] [address] Feb, [facility] [address] [id number] [address] [place] [address], [place] [address] Feb, [facility] [address] [id number] [address] [place] [address], [place] [address] Feb, [facility] [address] [id number] [address] [place] [address], [place] [address] Feb, [facility] [address] [id number] [address] [place] [address], [place] [address] January, [facility] [address] [id number] [address] [place] [address], [place] [address] January, [facility] [address] [id number] [address] [place] [address], [place] [address] January, [facility] [address] [id number] [address] [place] [address], [place] [address] January, [facility] [address] [id number] [address] [place] [address], [place] [address] January, [facility] [address] [id number] [address] [place] [address], [place] [address] January, [facility] [address] [id number] [address] [place] [address], [place] [address] January, [facility] [address] [id number] [address] [place] [address], [place] [address] January, [facility] [address] [id number] [address] [place] [address], [place] [address] January, [facility] [address] [id number] [address] [place] [address], [place] [address] 23 Dec, 2012 [facility] [address] [id number] [address] [place] [address], [place] [address] 18 Dec, 2012 [facility] [address] [id number] [address] [place] [address], [place] [address] 17 Dec, 2012 [facility] [address] [id number] [address] [place] [address], [place] [address] 16 Dec, 2012 [facility] [address] [id number] [address] [place] [address], [place] [address] 16 Dec, 2012 [facility] [address] [id number] [address] [place] [address], [place] [address] Dec, [facility] [address] [id number] [address] [place] [address], [place] [address] Dec, [facility] [address] [id number] [address] [place] [address], [place] [address] 26 Nov, 2012 [facility] [address] [id number] [address] [place] [address], [place] [phone] Nov, [facility] [address] [id number] [address] [place] [address], [place] [phone] 14 Nov, 2012 [facility] [address] [id number] [address] [place] [address], [place] [phone] 28 Oct, 2012 [facility] [address] [id number] [address] [place] [address], [place] [phone] 13 Oct, 2012 [facility] [address] [id number] [address] [place] [address], [place] [phone] Oct, [facility] [address] [facility] [id number] [address] [place] [phone] Oct, [facility] [address] [facility] [id number] [address] [place] [phone] Jul, [facility] [address] [facility] [id number] [address] [place] [phone] Jun, [facility] [address] [facility] [id number] [address] [place] [phone] Jun, [facility] [address] [facility] [id number] [address] [place] [phone] May, IMMUNIZATIONS No Known Immunizations SOCIAL HISTORY Never Assessed REASON FOR VISIT BP Reduction Challenge Check-in Phone Call PLAN OF CARE VITAL SIGNS MEDICATIONS Unknown [...] History post surgeries Hospitalization History [facility]- Abd pain 09/24/2017
--- OUTSIDE RECORDS SUMMARY | 2019-11-21 01:53 | XMS REPORT ---
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 Active 90518320 Problem Type 2 diabetes mellitus with unspecified complications E11.8 Active 45772927 Problem BMI 50.0-59.9, adult Z68.43 Active 113162066 Problem Morbid (severe) obesity due to excess calories E66 .01 Active 473818721 Problem residential current use of insulin Z79.4 Active 329988966 Problem Essential hypertension I10 Active 86597799 ALLERGIES No Information ENCOUNTERS Encounter Location Date Diagnosis [place] [address] [place] [id number] [place] [address] May, [place] [address] [place] [id number] [place] [address] May, [facility] [address] [place] [id number] [address] [place] [address] May, [facility] [address] [place] [address] Apr, [facility] [address] [place] [id number] [address] [place] [address] Apr, Burning with urination R30.0 ; Essential hypertension I10 ; Type 2 diabetes mellitus with other diabetic neurological complication E11.49 and Yeast dermatitis of penis B37.49 [facility] [address] [place] [id number] [address] [place] [address] Apr, [facility] [address] [place] [id number] [address] [place] [address] Feb, [facility] [address] [facility] [id number] [address] [place] [address] Feb, [facility] [address] [facility] [id number] [address] [place] [address] January, [facility] [address] [place] [id number] [place] [address] January, [facility] [address] [place] [id number] [place] [address] January, Onychomycosis B35.1 ; Callus of foot L84 and Type 2 diabetes mellitus with unspecified complications E11.8 [facility] [address] [place] [id number] [address] [place] [address] January, [facility] [address] [address] January, [facility] [address] [place] [id number] [address] [place] [address] January, [facility] [address] [place] [id number] [address] [place] [address] January, [facility] [address] [place] [id number] [address] [place] [address] January, BMI 50.0-59.9, adult Z68.43 [facility] [address] [place] [id number] [address] [place] [address] January, [facility] [address] [place] [id number] [address] [place] [address] January, Acute respiratory distress R 06.03 and Hypoxia R09.02 [facility] [address] [facility] [id number] [address] [place] [address] January, [facility] [address] [place] [id number] [address] [place] [address] January, Shortness of breath on exert ion R06.02 and BMI 50.0-59.9, adult Z68.43 [facility] [address] [facility] [id number] [address] [place] [address] Dec, BMI 50.0-59.9, adult Z68.43 [facility] [address] [facility] [id number] [address] [place] [address] Dec, [facility] [address] [facility] [id number] [address] [place] [address] Dec, [facility] [address] [facility] [id number] [address] [place] [address] Dec, [place] [address] [place] [id number] [place] [address] Nov, [place] [address] [place] [id number] [address] [place] [address] Nov, [facility] [address] [place] [id number] [place] [address] Oct, residential current use of ins ulin Z79.4 ; Type 2 diabetes mellitus with other diabetic neurological complication E11.49 ; Swelling of both lower extremities M79.89 ; Essential hypertension I10 ; BMI 50.0-59.9, adult Z68.43 and Blurry vision H53.8 [facility] [address] [place] [id number] [place] [address] Sep, Right upper quadrant pain R1 0.11 and Blood in stool K92.1 [facility] [address] [place] [id number] [address] [place] [address] Sep, Asymptomatic microscopic hem aturia R31.21 ; Glucose found in urine on examination R81 and BMI 50.0-59.9, adult Z68.43 [facility] [address] [place] [id number] [address] [place] [address] Sep, Type 2 diabetes mellitus wit h unspecified complications E11.8 [facility] [address] [place] [id number] [address] [place] [address] Aug, Type 2 diabetes mellitus wit h unspecified complications E11.8 ; Benign essential hypertension I10 ; Cough R05 ; Acute bronchitis, unspecified organism J20.9 ; Other viral agents as the cause of diseases classified elsewhere B97.89 and Morbid (severe) obesity due to excess calories E66.[address] [facility] [address] [facility] [id number] [address] [place] [address] May, Acute seasonal allergic rhin itis, unspecified trigger J30.2 and Candidiasis of penis B37.42 [facility] [address] [facility] [id number] [address] [place] [address] 14 Dec, 2014 [facility] [address] [facility] [id number] [place] [address] Dec, [facility] [address] [place] [id number] [place] [address] Oct, [facility] [address] [place] [id number] [address] [place] [address] Oct, [facility] [address] [place] [id number] [address] [place] [address] Dec, [facility] [address] [place] [id number] [address] [place] [address] Dec, [facility] [address] [place] [id number] [address] [place] [address] Dec, [facility] [address] [facility] [id number] [address] [place] [address] Dec, [facility] [address] [facility] [id number] [address] [place] [address] Dec, [facility] [address] [place] [id number] [address] [place] [address] Dec, [facility] [address] [facility] [id number] [address] [place] [address] Nov, [facility] [address] [place] [id number] [address] [place] [address] Nov, [facility] [address] [id number] [address] [place] [address], [place] [address] May, [facility] [address] [id number] [address] [place] [address], [place] [address] May, [facility] [address] [id number] [address] [place] [address], [place] [address] May, [facility] [address] [id number] [address] [place] [address], [place] [address] May, [facility] [address] [id number] [address] [place] [address], [place] [address] May, [facility] [address] [id number] [address] [place] [address], [place] [address] Apr, [facility] [address] [id number] [place] [id number] Mar, [facility] [address] [id number] [address] [place] [address] Mar, [facility] [address] [id number] [address] [place] [address], [place] [address] Mar, [facility] [address] [id number] [address] [place] [address], [place] [address] Mar, [facility] [address] [id number] [address] [place] [address], [place] [address] Feb, [facility] [address] [id number] [address] [place] [address] Feb, [facility] [address] [id number] [address] [place] [address], [place] [address] Feb, [facility] [address] [id number] [address] [place] [address], [place] [address] Feb, [facility] [address] [id number] [address] [place] [address], [place] [address] January, [facility] [address] [id number] [address] [place] [address], [place] [address] January, [facility] [address] [id number] [address] [place] [address], [place] [address] January, [facility] [address] [id number] [address] [place] [address], [place] [address] January, [facility] [address] [id number] [address] [place] [address], [place] [address] January, [facility] [address] [id number] [address] [place] [address], [place] [address] January, [facility] [address] [id number] [address] [place] [address], [place] [address] January, [facility] [address] [id number] [address] [place] [address], [place] [address] January, [facility] [address] [id number] [address] [place] [address], [place] [address] January, [facility] [address] [id number] [address] [place] [address], [place] [address] Dec, [facility] [address] [id number] [address] [place] [address], [place] [address] Dec, [facility] [address] [id number] [address] [place] [address], [place] [address] Dec, [facility] [address] [id number] [address] [place] [address], [place] [address] Dec, [facility] [address] [id number] [address] [place] [address], [place] [address] Dec, [facility] [address] [id number] [address] [place] [address], [place] [address] Dec, [facility] [address] [id number] [address] [place] [address], [place] [address] Dec, [facility] [address] [id number] [address] [place] [address], [place] [address] Nov, [facility] [address] [id number] [address] [place] [address] Nov, [facility] [address] [id number] [address] [place] [address] Nov, [facility] [address] [id number] [address] [place] [address] Oct, [facility] [address] [id number] [address] [place] [address] Oct, [facility] [address] [id number] [address] [place] [address] Oct, [facility] [address] [id number] [address] [place] [address] Oct, [facility] [address] [id number] [address] [place] [address] Jul, [facility] [address] [id number] [address] [place] [address] Jun, [facility] [address] [id number] [address] [place] [address] Jun, [facility] [address] [id number] [address] [place] [address] May, IMMUNIZATIONS No Known Immunizations SOCIAL HISTORY Never Assessed REASON FOR VISIT letter to pt for DM ed PLAN OF CARE VITAL [...] History post surgeries Hospitalization History [facility]- Abd pain 09/24/2017
--- OUTSIDE RECORDS SUMMARY | 2019-11-21 01:54 | XMS REPORT ---
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 Active 30673257 Problem Type 2 diabetes mellitus with unspecified complications E11.8 Active 53481552 Problem BMI 50.0-59.9, adult Z68.43 Active 455503255 Problem Morbid (severe) obesity due to excess calories E66 .01 Active 500141502 Problem [facility] current use of insulin Z79.4 Active 874443543 Problem Essential hypertension I10 Active 56336936 ALLERGIES No Information ENCOUNTERS Encounter Location Date Diagnosis [facility] [address] [place] [id number] [address] [place] [address] May, [facility] [address] [facility] [id number] [address] [place] [address] Feb, [facility] [address] [facility] [id number] [address] [place] [address] Feb, [facility] [address] [facility] [id number] [address] [place] [address] January, [facility] [address] [place] [id number] [address] [place] [address] January, [facility] [address] [place] [id number] [address] [place] [address] January, Onychomycosis B35.1 ; Callus of foot L84 and Type 2 diabetes mellitus with unspecified complications E11.8 [facility] [address] [place] [id number] [address] [place] [address] January, [facility] [address] [facility] [id number] [place] [address] January, [facility] [address] [place] [id number] [place] [address] January, [facility] [address] [place] [id number] [place] [address] January, [facility] [address] [place] [id number] [place] [address] January, BMI 50.0-59.9, adult Z68.43 [facility] [address] [place] [id number] [place] [address] January, [facility] [address] [place] [id number] [place] [address] January, Acute respiratory distress R 06.03 and Hypoxia R09.02 [facility] [address] [place] [id number] [place] [address] January, [facility] [address] [address] January, Shortness of breath on exert ion R06.02 and BMI 50.0-59.9, adult Z68.43 [facility] [address] [place] [id number] [address] [place] [address] Dec, BMI 50.0-59.9, adult Z68.43 [facility] [address] [facility] [id number] [address] [place] [address] Dec, [facility] [address] [place] [id number] [place] [address] Dec, [facility] [address] [place] [id number] [address] [place] [address] Dec, [facility] [address] [place] [id number] [address] [place] [address] Nov, [place] [address] [address] 14 Nov, 2017 [place] [address] [address] Oct, [facility] current use of ins ulin Z79.4 ; Type 2 diabetes mellitus with other diabetic neurological complication E11.49 ; Swelling of both lower extremities M79.89 ; Essential hypertension I10 ; BMI 50.0-59.9, adult Z68.43 and Blurry vision H53.8 [place] [address] [address] Sep, Right upper quadrant pain R1 0.11 and Blood in stool K92.1 [facility] [address] [address] Sep, Asymptomatic microscopic hem aturia R31.21 ; Glucose found in urine on examination R81 and BMI 50.0-59.9, adult Z68.[address] [address] Sep, Type 2 diabetes mellitus wit h unspecified complications E11.8 [facility] [address] [address] Aug, Type 2 diabetes mellitus wit h unspecified complications E11.8 ; Benign essential hypertension I10 ; Cough R05 ; Acute bronchitis, unspecified organism J20.9 ; Other viral agents as the cause of diseases classified elsewhere B97.89 and Morbid (severe) obesity due to excess calories E66.01 [facility] [address] [address] May, Acute seasonal allergic rhin itis, unspecified trigger J30.2 and Candidiasis of penis B37.[address] [address] Dec, [address] [address] Dec, [facility] [address] [id number] [address] [place] [address], [place] [address] Oct, [facility] [address] [id number] [address] [place] [address], [place] [address] Oct, [facility] [address] [id number] [address] [place] [address], [place] [address] Dec, [facility] [address] [id number] [address] [place] [address], [place] [address] Dec, [facility] [address] [id number] [address] [place] [address], [place] [address] Dec, [facility] [address] [id number] [address] [place] [address], [place] [address] Dec, [facility] [address] [id number] [address] [place] [address], [place] [address] Dec, [facility] [address] [id number] [address] [place] [address], [place] [address] Dec, [facility] [address] [id number] [address] [place] [address], [place] [address] Nov, [facility] [address] [id number] [address] [place] [address], [place] [address] Nov, [facility] [address] [id number] [address] [place] [address], [place] [address] 23 May, 2013 [facility] [address] [id number] [address] [place] [address], [place] [address] 19 May, 2013 [facility] [address] [id number] [address] [place] [address], [place] [address] 19 May, 2013 [facility] [address] [id number] [address] [place] [address], [place] [address] 17 May, 2013 [facility] [address] [id number] [address] [place] [address], [place] [address] 12 May, 2013 [facility] [address] [id number] [address] [place] [address] Apr, [facility] [place] [address] [id number] [place], [place] [id number] Mar, [facility] [address] [id number] [address] [place] [address], [place] [address] Mar, [facility] [address] [id number] [address] [place] [address], [place] [address] Mar, [facility] [address] [id number] [address] [place] [address], [place] [address] Mar, [facility] [address] [id number] [address] [place] [address], [place] [address] Feb, [facility] [address] [id number] [address] [place] [address], [place] [address] Feb, [facility] [address] [id number] [address] [place] [address], [place] [address] Feb, [facility] [address] [id number] [address] [place] [address], [place] [address] Feb, [facility] [address] [id number] [address] [place] [address], [place] [address] January, [facility] [address] [id number] [address] [place] [address], [place] [address] January, [facility] [address] [id number] [address] [place] [address], [place] [address] January, [facility] [address] [id number] [address] [place] [address], [place] [address] January, [facility] [address] [id number] [address] [place] [address], [place] [address] January, [facility] [address] [id number] [address] [place] [address], [place] [address] January, [facility] [address] [id number] [address] [place] [address], [place] [address] January, [facility] [address] [id number] [address] [place] [address], [place] [address] January, [facility] [address] [id number] [address] [place] [address], [place] [address] January, [facility] [address] [id number] [address] [place] [address], [place] [address] 23 Dec, 2012 [facility] [address] [id number] [address] [place] [address], [place] [address] 18 Dec, 2012 [facility] [address] [id number] [address] [place] [address], [place] [address] 17 Dec, 2012 [facility] [address] [id number] [address] [place] [address], [place] [address] 16 Dec, 2012 [facility] [address] [id number] [address] [place] [address], [place] [address] Dec, [facility] [address] [id number] [address] [place] [address], [place] [address] Dec, [facility] [address] [id number] [address] [place] [address], [place] [address] Dec, [facility] [address] [id number] [address] [place] [address], [place] [address] 26 Nov, 2012 [facility] [address] [id number] [address] [place] [address], [place] [address] Nov, [facility] [address] [id number] [address] [place] [address], [place] [address] 14 Nov, 2012 [facility] [address] [id number] [address] [place] [address], [place] [address] 28 Oct, 2012 [facility] [address] [id number] [address] [place] [address], [place] [address] 13 Oct, 2012 [facility] [address] [id number] [address] [place] [address], [place] [address] 05 Oct, 2012 [facility] [address] [id number] [address] [place] [address], [place] [address] 05 Oct, 2012 [facility] [address] [facility] [id number] [address] [place] [id number] Jul, [facility] [address] [facility] [id number] [address] [place] [phone] Jun, [facility] [address] [facility] [id number] [address] [place] [id number] Jun, [facility] [address] [facility] [id number] [address] [place] [phone] May, IMMUNIZATIONS No Known Immunizations SOCIAL HISTORY Never Assessed REASON FOR VISIT CCM note PLAN OF CARE VITAL SIGNS MEDICATIONS [...] History post surgeries Hospitalization History [facility] [place]- Abd pain 09/24/2017
--- OUTSIDE RECORDS SUMMARY | 2019-11-21 01:54 | XMS REPORT ---
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 Active 79687116 Problem Type 2 diabetes mellitus with unspecified complications E11.8 Active 09927223 Problem BMI 50.0-59.9, adult Z68.43 Active 292693729 Problem Morbid (severe) obesity due to excess calories E66 .01 Active 815070821 Problem senior living current use of insulin Z79.4 Active 833166581 Problem Essential hypertension I10 Active [id number] ALLERGIES No Information ENCOUNTERS Encounter Location Date Diagnosis [facility] [address] [id number] [address] [place] [address] May, [facility] [address] [facility] [id number] [address] [place] [address] Feb, [facility] [address] [facility] [id number] [address] [place] [address] Feb, [facility] [address] [facility] [id number] [address] [place] [address] January, [facility] [address] [id number] [address] [place] [address] January, [facility] [address] [id number] [address] [place] [address] January, Onychomycosis B35.1 ; Callus of foot L84 and Type 2 diabetes mellitus with unspecified complications E11.8 [facility] [address] [id number] [address] [place] [address] January, [facility] [address] [facility] [id number] [place] [address] January, [facility] [id number] [place] [address] January, [facility] [id number] [place] [address] January, [facility] [id number] [place] [address] January, BMI 50.0-59.9, adult Z68.43 [facility] [id number] [place] [address] January, [facility] [id number] [place] [address] January, Acute respiratory distress R 06.03 and Hypoxia R09.02 [facility] [id number] [place] [address] January, [facility] [address] [address] January, Shortness of breath on exert ion R06.02 and BMI 50.0-59.9, adult Z68.43 [facility] [address] [id number] [address] [place] [address] Dec, BMI 50.0-59.9, adult Z68.43 [facility] [address] [facility] [id number] [address] [place] [address] Dec, [facility] [id number] [place] [address] Dec, [facility] [address] [id number] [address] [place] [address] Dec, [facility] [address] [id number] [address] [place] [address] Nov, [place] [address] [address] 14 Nov, 2017 [place] [address] [address] Oct, senior living current use of ins ulin Z79.4 ; Type 2 diabetes mellitus with other diabetic neurological complication E11.49 ; Swelling of both lower extremities M79.89 ; Essential hypertension I10 ; BMI 50.0-59.9, adult Z68.43 and Blurry vision H53.8 [place] [address] [address] Sep, Right upper quadrant pain R1 0.11 and Blood in stool K92.1 [facility] WALK IN [address] [address] Sep, Asymptomatic microscopic hem aturia R31.21 ; Glucose found in urine on examination R81 and BMI 50.0-59.9, adult Z68.[address] [address] Sep, Type 2 diabetes mellitus wit h unspecified complications E11.8 [facility] [place] [address] [address] Aug, Type 2 diabetes mellitus wit h unspecified complications E11.8 ; Benign essential hypertension I10 ; Cough R05 ; Acute bronchitis, unspecified organism J20.9 ; Other viral agents as the cause of diseases classified elsewhere B97.89 and Morbid (severe) obesity due to excess calories E66.01 [facility] IN [address] [address] May, Acute seasonal allergic rhin itis, unspecified trigger J30.2 and Candidiasis of penis B37.[address] [address] Dec, [address] [address] Dec, [facility] [address] [id number] [address] [place] [address], [place] [address] Oct, [facility] [address] [id number] [address] [place] [address], [place] [address] Oct, [facility] [address] [id number] [address] [place] [address], [place] [address] Dec, [facility] [address] [id number] [address] [place] [address], [place] [address] Dec, [facility] [address] [id number] [address] [place] [address], [place] [address] Dec, [facility] [address] [id number] [address] [place] [address], [place] [address] Dec, [facility] [address] [id number] [address] [place] [address], [place] [address] Dec, [facility] [address] [id number] [address] [place] [address], [place] [address] Dec, [facility] [address] [id number] [address] [place] [address], [place] [address] Nov, [facility] [address] [id number] [address] [place] [address], [place] [address] Nov, [facility] [address] [id number] [address] [place] [address], [place] [address] 23 May, 2013 [facility] [address] [id number] [address] [place] [address], [place] [address] 19 May, 2013 [facility] [address] [id number] [address] [place] [address], [place] [address] 19 May, 2013 [facility] [address] [id number] [address] [place] [address], [place] [address] 17 May, 2013 [facility] [address] [id number] [address] [place] [address], [place] [address] 12 May, 2013 [facility] [address] [id number] [address] [place] [address] Apr, [facility] [place] [address] [id number] [place] [id number] Mar, [facility] [address] [id number] [address] [place] [address], [place] [address] Mar, [facility] [address] [id number] [address] [place] [address], [place] [address] Mar, [facility] [address] [id number] [address] [place] [address], [place] [address] Mar, [facility] [address] [id number] [address] [place] [address], [place] [address] Feb, [facility] [address] [id number] [address] [place] [address], [place] [address] Feb, [facility] [address] [id number] [address] [place] [address], [place] [address] Feb, [facility] [address] [id number] [address] [place] [address], [place] [address] Feb, [facility] [address] [id number] [address] [place] [address], [place] [address] January, [facility] [address] [id number] [address] [place] [address], [place] [address] January, [facility] [address] [id number] [address] [place] [address], [place] [address] January, [facility] [address] [id number] [address] [place] [address], [place] [address] January, [facility] [address] [id number] [address] [place] [address], [place] [address] January, [facility] [address] [id number] [address] [place] [address], [place] [address] January, [facility] [address] [id number] [address] [place] [address], [place] [address] January, [facility] [address] [id number] [address] [place] [address], [place] [address] January, [facility] [address] [id number] [address] [place] [address], [place] [address] January, [facility] [address] [id number] [address] [place] [address], [place] [address] 23 Dec, 2012 [facility] [address] [id number] [address] [place] [address], [place] [address] 18 Dec, 2012 [facility] [address] [id number] [address] [place] [address], [place] [address] 17 Dec, 2012 [facility] [address] [id number] [address] [place] [address], [place] [address] 16 Dec, 2012 [facility] [address] [id number] [address] [place] [address], [place] [address] Dec, [facility] [address] [id number] [address] [place] [address], [place] [address] Dec, [facility] [address] [id number] [address] [place] [address], [place] [address] Dec, [facility] [address] [id number] [address] [place] [address], [place] [address] 26 Nov, 2012 [facility] [address] [id number] [address] [place] [address], [place] [address] Nov, [facility] [address] [id number] [address] [place] [address], [place] [address] 14 Nov, 2012 [facility] [address] [id number] [address] [place] [address], [place] [address] 28 Oct, 2012 [facility] [address] [id number] [address] [place] [address], [place] [address] 13 Oct, 2012 [facility] [address] [id number] [address] [place] [address], [place] [address] 05 Oct, 2012 [facility] [address] [id number] [address] [place] [address], [place] [address] 05 Oct, 2012 [facility] [address] [facility] [id number] [address] [place] [address] Jul, [facility] [address] [facility] [id number] [address] [place] [address] Jun, [facility] [address] [facility] [id number] [address] [place] [address] Jun, [facility] [address] [facility] [id number] [address] [place] [address] May, IMMUNIZATIONS No Known Immunizations SOCIAL HISTORY Never Assessed REASON FOR VISIT ATS Brief PLAN OF CARE VITAL SIGNS MEDICATIONS Unknown Medications RESULTS No Results PROCEDURES Procedure Date Ordered Result Body Site Alcohol and/or drug services January 09, 2018 INSTRUCTIONS MEDICATIONS ADMINISTERED No Known Medications MEDICAL (GENERAL) HISTORY Type Description Date Medical History bleeding ulcer Medical History type 2 diabetes Medical History stents in pancreas Medical History hypertension Medical History schizophrenia Surgical History bilateral knees...scopes Surgical History stent placed in pancreas Surgical History stent removed form pancreas Hospitalization History post surgeries Hospitalization History [facility] [place]- Abd pain 09/24/2017
--- OUTSIDE RECORDS SUMMARY | 2019-11-21 01:54 | XMS REPORT ---
Author Author Walter ALVARENGA Organization 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 [address] [id number] [address] [place] [address] May, [facility] [address] [facility] [id number] [address] [place] [address] Feb, [facility] [address] [facility] [id number] [address] [place] [address] Feb, [facility] [address] [facility] [id number] [address] [place] [address] January, [facility] [address] [address] [id number] [address] [place] [address] January, [facility] [address] [place] [id number] [address] [place] [address] January, Onychomycosis B35.1 ; Callus of foot L84 and Type 2 diabetes mellitus with unspecified complications E11.8 [facility] [address] [id number] [address] [place] [address] January, [facility] [address] [facility] [id number] [place] [address] January, [facility] [id number] [place] [address] January, [facility] [id number] [place] [address] January, [facility] [id number] [place] [address] January, BMI 50.0-59.9, adult Z68.43 [facility] [id number] [place] [address] January, [facility] [id number] [place] [address] January, Acute respiratory distress R 06.[address] [facility] [id number] [place] [address] January, [facility] [address] [address] January, Shortness of breath on exert ion R06.02 and BMI 50.0-59.9, adult Z68.43 [facility] [address] [place] [id number] [address] [place] [address] Dec, BMI 50.0-59.9, adult Z68.43 [facility] [address] [facility] [id number] [address] [place] [address] Dec, [facility] [id number] [place] [address] Dec, [facility] [address] [id number] [address] [place] [address] Dec, [facility] [address] [id number] [address] [place] [address] Nov, [place] [address] [address] 14 Nov, 2017 [place] [address] [address] Oct, [facility] current use of ins ulin Z79.4 ; Type 2 diabetes mellitus with other diabetic neurological complication E11.49 ; Swelling of both lower extremities M79.89 ; Essential hypertension I10 ; BMI 50.0-59.9, adult Z68.43 and Blurry vision H53.8 [place] [address] [address] Sep, Right upper quadrant pain R1 0.11 and Blood in stool K92.1 [facility] W[facility] [address] [address] Sep, Asymptomatic microscopic hem aturia R31.21 ; Glucose found in urine on examination R81 and BMI 50.0-59.9, adult Z68.[address] [address] Sep, Type 2 diabetes mellitus wit h unspecified complications E11.8 [facility] [place] [address] [address] Aug, Type 2 diabetes mellitus wit h unspecified complications E11.8 ; Benign essential hypertension I10 ; Cough R05 ; Acute bronchitis, unspecified organism J20.9 ; Other viral agents as the cause of diseases classified elsewhere B97.89 and Morbid (severe) obesity due to excess calories E66.01 [facility] [address] [address] May, Acute seasonal allergic rhin itis, unspecified trigger J30.2 and Candidiasis of penis B37.[address] [address] Dec, [address] [address] Dec, [facility] [address] [id number] [address] [place] [address], [place] [address] Oct, [facility] [address] [id number] [address] [place] [address], [place] [address] Oct, [facility] [address] [id number] [address] [place] [address], [place] [address] Dec, [facility] [address] [id number] [address] [place] [address], [place] [address] Dec, [facility] [address] [id number] [address] [place] [address], [place] [address] Dec, [facility] [address] [id number] [address] [place] [address], [place] [address] Dec, [facility] [address] [id number] [address] [place] [address], [place] [address] Dec, [facility] [address] [id number] [address] [place] [address], [place] [address] Dec, [facility] [address] [id number] [address] [place] [address], [place] [address] Nov, [facility] [address] [id number] [address] [place] [address], [place] [address] Nov, [facility] [address] [id number] [address] [place] [address], [place] [address] 23 May, 2013 [facility] [address] [id number] [address] [place] [address], [place] [address] 19 May, 2013 [facility] [address] [id number] [address] [place] [address], [place] [address] 19 May, 2013 [facility] [address] [id number] [address] [place] [address], [place] [address] 17 May, 2013 [facility] [address] [id number] [address] [place] [address], [place] [address] 12 May, 2013 [facility] [address] [id number] [address] [place] [address] Apr, [facility] [place] [address] [id number] [place] [id number] Mar, [facility] [address] [id number] [address] [place] [address], [place] [address] Mar, [facility] [address] [id number] [address] [place] [address], [place] [address] Mar, [facility] [address] [id number] [address] [place] [address], [place] [address] Mar, [facility] [address] [id number] [address] [place] [address], [place] [address] Feb, [facility] [address] [id number] [address] [place] [address], [place] [address] Feb, [facility] [address] [id number] [address] [place] [address], [place] [address] Feb, [facility] [address] [id number] [address] [place] [address], [place] [address] Feb, [facility] [address] [id number] [address] [place] [address], [place] [address] January, [facility] [address] [id number] [address] [place] [address], [place] [address] January, [facility] [address] [id number] [address] [place] [address], [place] [address] January, [facility] [address] [id number] [address] [place] [address], [place] [address] January, [facility] [address] [id number] [address] [place] [address], [place] [address] January, [facility] [address] [id number] [address] [place] [address], [place] [address] January, [facility] [address] [id number] [address] [place] [address], [place] [address] January, [facility] [address] [id number] [address] [place] [address], [place] [address] January, [facility] [address] [id number] [address] [place] [address], [place] [address] January, [facility] [address] [id number] [address] [place] [address], [place] [address] 23 Dec, 2012 [facility] [address] [id number] [address] [place] [address], [place] [address] 18 Dec, 2012 [facility] [address] [id number] [address] [place] [address], [place] [address] 17 Dec, 2012 [facility] [address] [id number] [address] [place] [address], [place] [address] 16 Dec, 2012 [facility] [address] [id number] [address] [place] [address], [place] [address] Dec, [facility] [address] [id number] [address] [place] [address], [place] [address] Dec, [facility] [address] [id number] [address] [place] [address], [place] [address] Dec, [facility] [address] [id number] [address] [place] [address], [place] [address] 26 Nov, 2012 [facility] [address] [id number] [address] [place] [address], [place] [address] Nov, [facility] [address] [id number] [address] [place] [address], [place] [address] 14 Nov, 2012 [facility] [address] [id number] [address] [place] [address], [place] [address] 28 Oct, 2012 [facility] [address] [id number] [address] [place] [address], [place] [address] 13 Oct, 2012 [facility] [address] [id number] [address] [place] [address], [place] [address] 05 Oct, 2012 [facility] [address] [id number] [address] [place] [address], [place] [address] Oct, [facility] [address] [facility] [id number] [address] [place] [id number] Jul, [facility] [address] [facility] [id number] [address] [place] [id number] Jun, [facility] [address] [facility] [id number] [address] [place] [address] Jun, [facility] [address] [facility] [id number] [address] [place] [address] May, IMMUNIZATIONS No Known Immunizations SOCIAL HISTORY Never Assessed REASON FOR VISIT metformin PLAN OF CARE VITAL SIGNS MEDICATIONS Medication Instructions Dosage Frequency Start Date End Date Duration S gareth Metformin HCl 1000 MG Orally 2 times a day 1 tablet 12h Active Sucralfate 1 GM Orally 4 times a day 1 tablet 6h Active Potassium Chloride ER 10 MEQ Orally Once a day 1 tablet with food 24h Active RESULTS No Results PROCEDURES No Known [...] History post surgeries Hospitalization History [facility]- Abd pain 09/24/2017
--- OUTSIDE RECORDS SUMMARY | 2019-11-21 01:54 | XMS REPORT ---
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 16154106 Problem Type 2 diabetes mellitus with unspecified complications E11.8 Active 24822746 Problem BMI 50.0-59.9, adult Z68.43 Active 563236153 Problem Morbid (severe) obesity due to excess calories E66 .01 Active 285435469 Problem halfway current use of insulin Z79.4 Active 081568040 Problem Essential hypertension I10 Active [id number] ALLERGIES No Information ENCOUNTERS Encounter Location Date Diagnosis [facility] [address] [id number] [address] [place] [phone] May, [facility] [address] [facility] [id number] [address] [place] [phone] Feb, [facility] [address] [facility] [id number] [address] [place] [phone] Feb, [facility] [address] [facility] [id number] [address] [place] [address] January, [facility] [id number] [address] [place] [phone] January, [facility] [id number] [address] [place] [address] January, Onychomycosis B35.1 ; Callus of foot L84 and Type 2 diabetes mellitus with unspecified complications E11.8 [facility] [address] [id number] [address] [place] [phone] January, [facility] [address] [facility] [id number] [place] [phone] January, [facility] [id number] [place] [phone] January, [facility] [id number] [place] [phone] January, [facility] [id number] [place] [address] January, BMI 50.0-59.9, adult Z68.43 [facility] [id number] [place] [address] January, [facility] [id number] [place] [address] January, Acute respiratory distress R 06.03 and Hypoxia R09.02 [facility] [id number] [place] [address] January, [facility] [address] [address] January, Shortness of breath on exert ion R06.02 and BMI 50.0-59.9, adult Z68.43 [facility] [id number] [address] [place] [address] Dec, BMI 50.0-59.9, adult Z68.43 [facility] [address] [facility] [id number] [address] [place] [address] Dec, [facility] [id number] [place] [address] Dec, [facility] [id number] [place] [phone] Dec, [facility] [id number] [place] [phone] Nov, [place] [address] [id number] 14 Nov, 2017 [place] [address] [address] Oct, halfway current use of ins ulin Z79.4 ; Type 2 diabetes mellitus with other diabetic neurological complication E11.49 ; Swelling of both lower extremities M79.89 ; Essential hypertension I10 ; BMI 50.0-59.9, adult Z68.43 and Blurry vision H53.8 [place] [address] [address] Sep, Right upper quadrant pain R1 0.11 and Blood in stool K92.1 [facility] [address] [address] Sep, Asymptomatic microscopic hem aturia R31.21 ; Glucose found in urine on examination R81 and BMI 50.0-59.9, adult Z68.[address] [id number] Sep, Type 2 diabetes mellitus wit h unspecified complications E11.8 [facility] [place] [address] [address] Aug, Type 2 diabetes mellitus wit h unspecified complications E11.8 ; Benign essential hypertension I10 ; Cough R05 ; Acute bronchitis, unspecified organism J20.9 ; Other viral agents as the cause of diseases classified elsewhere B97.89 and Morbid (severe) obesity due to excess calories E66.01 [facility] [address] [address] May, Acute seasonal allergic rhin itis, unspecified trigger J30.2 and Candidiasis of penis B37.[address] [address] Dec, [address] [address] Dec, [facility] [address] [id number] [address] [place] [address], [place] [address] Oct, [facility] [address] [id number] [address] [place] [address], [place] [address] Oct, [facility] [address] [id number] [address] [place] [address], [place] [address] Dec, [facility] [address] [id number] [address] [place] [address], [place] [address] Dec, [facility] [address] [id number] [address] [place] [address], [place] [address] Dec, [facility] [address] [id number] [address] [place] [address], [place] [address] Dec, [facility] [address] [id number] [address] [place] [address], [place] [address] Dec, [facility] [address] [id number] [address] [place] [address], [place] [address] Dec, [facility] [address] [id number] [address] [place] [address], [place] [address] Nov, [facility] [address] [id number] [address] [place] [address], [place] [address] Nov, [facility] [address] [id number] [address] [place] [address], [place] [address] 23 May, 2013 [facility] [address] [id number] [address] [place] [address], [place] [address] 19 May, 2013 [facility] [address] [id number] [address] [place] [address], [place] [address] 19 May, 2013 [facility] [address] [id number] [address] [place] [address], [place] [address] 17 May, 2013 [facility] [address] [id number] [address] [place] [address], [place] [address] 12 May, 2013 [facility] [address] [id number] [address] [place] [phone] Apr, [facility] [address] [id number] [place] [id number] Mar, [facility] [address] [id number] [address] [place] [address], [place] [address] Mar, [facility] [address] [id number] [address] [place] [address], [place] [address] Mar, [facility] [address] [id number] [address] [place] [address], [place] [address] Mar, [facility] [address] [id number] [address] [place] [address], [place] [address] Feb, [facility] [address] [id number] [address] [place] [address], [place] [address] Feb, [facility] [address] [id number] [address] [place] [address], [place] [address] Feb, [facility] [address] [id number] [address] [place] [address], [place] [address] Feb, [facility] [address] [id number] [address] [place] [address], [place] [address] January, [facility] [address] [id number] [address] [place] [address], [place] [address] January, [facility] [address] [id number] [address] [place] [address], [place] [address] January, [facility] [address] [id number] [address] [place] [address], [place] [address] January, [facility] [address] [id number] [address] [place] [address], [place] [address] January, [facility] [address] [id number] [address] [place] [address], [place] [address] January, [facility] [address] [id number] [address] [place] [address], [place] [address] January, [facility] [address] [id number] [address] [place] [address], [place] [address] January, [facility] [address] [id number] [address] [place] [address], [place] [address] January, [facility] [address] [id number] [address] [place] [address], [place] [address] 23 Dec, 2012 [facility] [address] [id number] [address] [place] [address], [place] [address] 18 Dec, 2012 [facility] [address] [id number] [address] [place] [address], [place] [address] 17 Dec, 2012 [facility] [address] [id number] [address] [place] [address], [place] [address] 16 Dec, 2012 [facility] [address] [id number] [address] [place] [address], [place] [address] Dec, [facility] [address] [id number] [address] [place] [address], [place] [address] Dec, [facility] [address] [id number] [address] [place] [address], [place] [address] Dec, [facility] [address] [id number] [address] [place] [address], [place] [address] 26 Nov, 2012 [facility] [address] [id number] [address] [place] [address], [place] [address] Nov, [facility] [address] [id number] [address] [place] [address], [place] [address] 14 Nov, 2012 [facility] [address] [id number] [address] [place] [address], [place] [address] 28 Oct, 2012 [facility] [address] [id number] [address] [place] [address], [place] [address] 13 Oct, 2012 [facility] [address] [id number] [address] [place] [address], [place] [address] 05 Oct, 2012 [facility] [address] [id number] [address] [place] [address], [place] [address] Oct, [facility] [address] [facility] [id number] [address] [place] [phone] Jul, [facility] [address] [facility] [id number] [address] [place] [phone] Jun, [facility] [address] [facility] [id number] [address] [place] [phone] Jun, [facility] [address] [facility] [id number] [address] [place] [phone] May, IMMUNIZATIONS No Known Immunizations SOCIAL HISTORY Never Assessed REASON FOR VISIT BP Check PLAN OF CARE VITAL SIGNS Height 69 in 2018-01-11 Weight 388.0 lbs 2018-01-11 BMI 57.29 kg/m2 2018-01-11 Blood pressure systolic 144 mmHg 2018-01-11 Blood pressure diastolic 82 mmHg 2018-01-11 MEDICATIONS Unknown Medications RESULTS No Results PROCEDURES [...] History post surgeries Hospitalization History [facility]- Abd pain 09/24/2017
--- OUTSIDE RECORDS SUMMARY | 2019-11-21 01:54 | XMS REPORT ---
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 Active 28886739 Problem Type 2 diabetes mellitus with unspecified complications E11.8 Active 24159197 Problem BMI 50.0-59.9, adult Z68.43 Active 499866606 Problem Morbid (severe) obesity due to excess calories E66 .01 Active 149909576 Problem USP current use of insulin Z79.4 Active 971514842 Problem Essential hypertension I10 Active 27809817 ALLERGIES No Known Allergies ENCOUNTERS Encounter Location Date Diagnosis [place] [id number] [facility] [place] [id number] [address] [place] [phone] May, [facility] [address] [place] [id number] [address] [place] [phone] Feb, [facility] [address] [facility] [place] [id number] [address] [place] [phone] Feb, [facility] [address] [facility] [place] [id number] [address] [place] [phone] January, [facility] [address] [place] [id number] [address] [place] [phone] January, [facility] [address] [place] [id number] [address] [place] [phone] January, Onychomycosis B35.1 ; Callus of foot L84 and Type 2 diabetes mellitus with unspecified complications E11.8 [facility] [address] [place] [id number] [address] [place] [phone] January, [facility] [address] [place] [id number] [place] [phone] January, [facility] [address] [place] [id number] [place] [phone] January, [facility] [address] [place] [id number] [place] [phone] January, [facility] [address] [place] [id number] [place] [phone] January, BMI 50.0-59.9, adult Z68.43 [facility] [address] [place] [id number] [place] [phone] January, [facility] [address] [place] [id number] [place] [phone] January, Acute respiratory distress R 06.03 and Hypoxia R09.02 [facility] [address] [address] January, [facility] [address] [address] January, Shortness of breath on exert ion R06.02 and BMI 50.0-59.9, adult Z68.43 [facility] [address] [place] [id number] [address] [place] [phone] Dec, BMI 50.0-59.9, adult Z68.43 [facility] [address] [place] [id number] [address] [place] [phone] Dec, [facility] [address] [place] [id number] [place] [id number] Dec, [facility] [address] [place] [id number] [address] [place] [phone] Dec, [facility] [address] [place] [id number] [address] [place] [phone] Nov, [place] [address] [id number] Nov, [place] [address] [address] Oct, USP current use of ins ulin Z79.4 ; Type 2 diabetes mellitus with other diabetic neurological complication E11.49 ; Swelling of both lower extremities M79.89 ; Essential hypertension I10 ; BMI 50.0-59.9, adult Z68.43 and Blurry vision H53.8 [place] [address] [phone] Sep, Right upper quadrant pain R1 0.11 and Blood in stool K92.1 [facility] [place] [address] [phone] Sep, Asymptomatic microscopic hem aturia R31.21 ; Glucose found in urine on examination R81 and BMI 50.0-59.9, adult Z68.[address] [address] Sep, Type 2 diabetes mellitus wit h unspecified complications E11.8 [facility] [place] [address] [address] Aug, Type 2 diabetes mellitus wit h unspecified complications E11.8 ; Benign essential hypertension I10 ; Cough R05 ; Acute bronchitis, unspecified organism J20.9 ; Other viral agents as the cause of diseases classified elsewhere B97.89 and Morbid (severe) obesity due to excess calories E66.01 [facility] [address] [address] May, Acute seasonal allergic rhin itis, unspecified trigger J30.2 and Candidiasis of penis B37.[address] [address] Dec, [address] [address] Dec, [facility] [address] [id number] [address] [place] [address], [place] [address] Oct, [facility] [address] [id number] [address] [place] [address], [place] [address] Oct, [facility] [address] [id number] [address] [place] [address], [place] [address] Dec, [facility] [address] [id number] [address] [place] [address], [place] [address] Dec, [facility] [address] [id number] [address] [place] [address], [place] [address] Dec, [facility] [address] [id number] [address] [place] [address], [place] [address] Dec, [facility] [address] [id number] [address] [place] [address], [place] [address] Dec, [facility] [address] [id number] [address] [place] [address], [place] [address] Dec, [facility] [address] [id number] [address] [place] [address], [place] [address] Nov, [facility] [address] [id number] [address] [place] [address], [place] [address] Nov, [facility] [address] [id number] [address] [place] [address], [place] [address] 23 May, 2013 [facility] [address] [id number] [address] [place] [address], [place] [id number] 19 May, 2013 [facility] [address] [id number] [address] [place] [address], [place] [address] 19 May, 2013 [facility] [address] [id number] [address] [place] [address], [place] [id number] 17 May, 2013 [facility] [address] [id number] [address] [place] [address], [place] [id number] 12 May, 2013 [facility] [address] [id number] [address] [place] [address], [place] [address] Apr, [facility] [address] [id number] [facility] [id number] Mar, [facility] [address] [id number] [address] [place] [address], [place] [address] Mar, [facility] [address] [id number] [address] [place] [address], [place] [address] Mar, [facility] [address] [id number] [address] [place] [address], [place] [address] Mar, [facility] [address] [id number] [address] [place] [address], [place] [address] Feb, [facility] [address] [id number] [address] [place] [address], [place] [address] Feb, [facility] [address] [id number] [address] [place] [address], [place] [address] Feb, [facility] [address] [id number] [address] [place] [address], [place] [address] Feb, [facility] [address] [id number] [address] [place] [address], [place] [address] January, [facility] [address] [id number] [address] [place] [address], [place] [address] January, [facility] [address] [id number] [address] [place] [address], [place] [address] January, [facility] [address] [id number] [address] [place] [address], [place] [address] January, [facility] [address] [id number] [address] [place] [address], [place] [address] January, [facility] [address] [id number] [address] [place] [address], [place] [address] January, [facility] [address] [id number] [address] [place] [address], [place] [address] January, [facility] [address] [id number] [address] [place] [address], [place] [address] January, [facility] [address] [id number] [address] [place] [address], [place] [address] January, [facility] [address] [id number] [address] [place] [address], [place] [address] 23 Dec, 2012 [facility] [address] [id number] [address] [place] [address], [place] [address] 18 Dec, 2012 [facility] [address] [id number] [address] [place] [address], [place] [address] 17 Dec, 2012 [facility] [address] [id number] [address] [place] [address], [place] [address] 16 Dec, 2012 [facility] [address] [id number] [address] [place] [address], [place] [address] Dec, [facility] [address] [id number] [address] [place] [address], [place] [address] Dec, [facility] [address] [id number] [address] [place] [address], [place] [address] Dec, [facility] [address] [id number] [address] [place] [address], [place] [address] 26 Nov, 2012 [facility] [address] [id number] [address] [place] [address], [place] [address] Nov, [facility] [address] [id number] [address] [place] [address], [place] [id number] 14 Nov, 2012 [facility] [address] [id number] [address] [place] [address], [place] [address] 28 Oct, 2012 [facility] [address] [id number] [address] [place] [address], [place] [address] 13 Oct, 2012 [facility] [address] [id number] [address] [place] [address], [place] [address] 05 Oct, 2012 [facility] [address] [id number] [address] [place] [address], [place] [address] Oct, [facility] [address] [facility] [place] [id number] [address] [place] [phone] Jul, [facility] [address] [facility] [place] [id number] [address] [place] [phone] Jun, [facility] [address] [facility] [place] [id number] [address] [place] [phone] Jun, [facility] [address] [facility] [place] [id number] [address] [place] [phone] May, IMMUNIZATIONS No Known Immunizations SOCIAL HISTORY Never Assessed REASON FOR VISIT Medication mgmt, weight gain -- estephania potts, having shortness of breath , leg p ain , light headache , dizziness PLAN OF CARE Activity Details Follow Up Will check on patient in AM Reason: VITAL SIGNS Height 69 in 2018-01-08 Weight 388.0 lbs 2018-01-08 Temperature 98.3 degrees Fahrenheit 2018-01-08 Heart Rate 100 bpm 2018-01-08 Respiratory Rate 26 2018-01-08 Oximetry 94 % 2018-01-08 BMI 57.29 kg/m2 2018-01-08 Blood pressure systolic 130 mmHg 2018-01-08 Blood pressure diastolic 70 mmHg 2018-01-08 MEDICATIONS Medication Instructions Dosage Frequency Start Date End Date Duration S tatus Pen Donalds 32G X 4 MM as directed Oct, Active Omeprazole 40 mg by oral route 2 times a day 1 capsule 12h Feb, 013 Active HydrOXYzine HCl 25 mg 1 tablet by Oral route 2 times p er day PRN Feb, Active Sucralfate 1 GM Orally 4 times a day 1 tablet 6h Active Lasix 40 MG Orally Once a day 1 tablet 24h A ctive Lisinopril 40 mg Orally Once a day 1 tablet 24h Aug, 30 day(s) Active Oxycodone HCl 10 MG Orally every 6 hrs 1 tablet as needed 6h Active Benztropine Mesylate 0.5 MG Orally TID PRN 1 tablet Active Fluconazole 150 MG 1 tablet Acti ve Fish Oil 1000 MG Orally Once a day 1 capsule 24h Active Invega Trinza 819 MG/2.625ML Intramuscular Q 3 months 2.625 ml Active Zyrtec Allergy 10 MG Orally Once a day 1 tablet 24h Active Basaglar KwikPen 100 UNIT/ML Subcutaneous 100 units 2 times a day a s directed Sep, Active Multivitamin by Oral route once daily. Oct, Active Accu-Chek Angela Plus 1 subcutaneously 3 times a day test 3 times pe r day 8h Aug, 12 months Active Mupirocin 2 % Externally Three times a day 1 application to affected area 8h Active Metformin HCl 850 MG Orally 3 times a day 1 tablet with meals 8h Active Potassium Chloride ER 10 MEQ Orally Once a day 1 tablet with food 24h Active Triamcinolone Acetonide 0.5 % Externally Twice a day as need ed 1 application to affected area Oct, Active NovoLog 100 UNIT/ML Subcutaneous 3 times a day per sliding scale 8h Active Amlodipine Besylate 5 TAKE ONE TABLET BY MOUTH DAILY 30 Active Metformin HCl 1000 MG Orally 2 times a day 1 tablet 12h Active Haloperidol 2 MG Orally TID PRN 1 tablet Active Vitamin E Active RESULTS No Results PROCEDURES Procedure Date Ordered Result Body Site [facility] VISIT ESTABLISHED PATIENT January 08, 2018 INSTRUCTIONS MEDICATIONS ADMINISTERED No Known Medications MEDICAL (GENERAL) HISTORY Type Description Date Medical History bleeding ulcer Medical History type 2 diabetes Medical History stents in pancreas Medical History hypertension Medical History schizophrenia Surgical History bilateral knees...scopes Surgical History stent placed in pancreas Surgical History stent removed form pancreas Hospitalization History post surgeries Hospitalization History [facility]- Abd pain 09/24/2017
--- OUTSIDE RECORDS SUMMARY | 2019-11-21 01:54 | XMS REPORT ---
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 Active 67658847 Problem Type 2 diabetes mellitus with unspecified complications E11.8 Active 34098668 Problem BMI 50.0-59.9, adult Z68.43 Active 963087623 Problem Morbid (severe) obesity due to excess calories E66 .01 Active 683979933 Problem shelter current use of insulin Z79.4 Active 828873130 Problem Essential hypertension I10 Active 43611329 ALLERGIES No Information ENCOUNTERS Encounter Location Date Diagnosis [facility] [address] [place] [id number] [address] [place] [address] May, [facility] [address] [facility] [id number] [address] [place] [address] Feb, [facility] [address] [facility] [id number] [address] [place] [address] Feb, [facility] [address] [facility] [id number] [address] [place] [address] January, [facility] [address] [place] [id number] [address] [place] [address] January, [facility] [address] [place] [id number] [address] [place] [address] January, Onychomycosis B35.1 ; Callus of foot L84 and Type 2 diabetes mellitus with unspecified complications E11.8 [facility] [address] [place] [id number] [address] [place] [address] January, [facility] [address] [facility] [id number] [place] [address] January, [facility] [address] [id number] [place] [address] January, [facility] [address] [id number] [place] [address] January, [facility] [address] [id number] [place] [address] January, BMI 50.0-59.9, adult Z68.43 [facility] [address] [id number] [place] [address] January, [facility] [address] [id number] [place] [address] January, Acute respiratory distress R 06.03 and Hypoxia R09.02 [facility] [address] [id number] [place] [address] January, [facility] [address] [address] January, Shortness of breath on exert ion R06.02 and BMI 50.0-59.9, adult Z68.43 [facility] [address] [place] [id number] [address] [place] [address] Dec, BMI 50.0-59.9, adult Z68.43 [facility] [address] [facility] [id number] [address] [place] [address] Dec, [facility] [address] [id number] [place] [address] Dec, [facility] [address] [place] [place] [id number] [address] [place] [address] Dec, [facility] [address] [place] [place] [id number] [address] [place] [address] Nov, [place] [address] [address] 14 Nov, 2017 [place] [address] [address] Oct, shelter current use of ins ulin Z79.4 ; Type 2 diabetes mellitus with other diabetic neurological complication E11.49 ; Swelling of both lower extremities M79.89 ; Essential hypertension I10 ; BMI 50.0-59.9, adult Z68.43 and Blurry vision H53.8 [place] [address] [address] Sep, Right upper quadrant pain R1 0.11 and Blood in stool K92.1 [facility] [address] [address] Sep, Asymptomatic microscopic hem aturia R31.21 ; Glucose found in urine on examination R81 and BMI 50.0-59.9, adult Z68.[address] [address] Sep, Type 2 diabetes mellitus wit h unspecified complications E11.8 [facility] [place] [address] [address] Aug, Type 2 diabetes mellitus wit h unspecified complications E11.8 ; Benign essential hypertension I10 ; Cough R05 ; Acute bronchitis, unspecified organism J20.9 ; Other viral agents as the cause of diseases classified elsewhere B97.89 and Morbid (severe) obesity due to excess calories E66.01 [facility] [address] [address] May, Acute seasonal allergic rhin itis, unspecified trigger J30.2 and Candidiasis of penis B37.[address] [address] Dec, [address] [address] Dec, [facility] [address] [id number] [address] [place] [address], [place] [address] Oct, [facility] [address] [id number] [address] [place] [address], [place] [address] Oct, [facility] [address] [id number] [address] [place] [address], [place] [address] Dec, [facility] [address] [id number] [address] [place] [address], [place] [address] Dec, [facility] [address] [id number] [address] [place] [address], [place] [address] Dec, [facility] [address] [id number] [address] [place] [address], [place] [address] Dec, [facility] [address] [id number] [address] [place] [address], [place] [address] Dec, [facility] [address] [id number] [address] [place] [address], [place] [address] Dec, [facility] [address] [id number] [address] [place] [address], [place] [address] Nov, [facility] [address] [id number] [address] [place] [address], [place] [address] Nov, [facility] [address] [id number] [address] [place] [address], [place] [address] 23 May, 2013 [facility] [address] [id number] [address] [place] [address], [place] [address] 19 May, 2013 [facility] [address] [id number] [address] [place] [address], [place] [address] 19 May, 2013 [facility] [address] [id number] [address] [place] [address], [place] [address] 17 May, [address] [facility] [address] [id number] [address] [place] [address], [place] [address] 12 May, 2013 [facility] [address] [id number] [address] [place] [address] Apr, [facility] [place] [address] [id number] [place] [id number] Mar, [facility] [address] [id number] [address] [place] [address], [place] [address] Mar, [facility] [address] [id number] [address] [place] [address], [place] [address] Mar, [facility] [address] [id number] [address] [place] [address], [place] [address] Mar, [facility] [address] [id number] [address] [place] [address], [place] [address] Feb, [facility] [address] [id number] [address] [place] [address], [place] [address] Feb, [facility] [address] [id number] [address] [place] [address], [place] [address] Feb, [facility] [address] [id number] [address] [place] [address], [place] [address] Feb, [facility] [address] [id number] [address] [place] [address], [place] [address] January, [facility] [address] [id number] [address] [place] [address], [place] [address] January, [facility] [address] [id number] [address] [place] [address], [place] [address] January, [facility] [address] [id number] [address] [place] [address], [place] [address] January, [facility] [address] [id number] [address] [place] [address], [place] [address] January, [facility] [address] [id number] [address] [place] [address], [place] [address] January, [facility] [address] [id number] [address] [place] [address], [place] [address] January, [facility] [address] [id number] [address] [place] [address], [place] [address] January, [facility] [address] [id number] [address] [place] [address], [place] [address] January, [facility] [address] [id number] [address] [place] [address], [place] [address] 23 Dec, 2012 [facility] [address] [id number] [address] [place] [address], [place] [address] 18 Dec, 2012 [facility] [address] [id number] [address] [place] [address], [place] [address] 17 Dec, 2012 [facility] [address] [id number] [address] [place] [address], [place] [address] 16 Dec, 2012 [facility] [address] [id number] [address] [place] [address], [place] [address] Dec, [facility] [address] [id number] [address] [place] [address], [place] [address] Dec, [facility] [address] [id number] [address] [place] [address], [place] [address] Dec, [facility] [address] [id number] [address] [place] [address], [place] [address] 26 Nov, 2012 [facility] [address] [id number] [address] [place] [address], [place] [address] Nov, [facility] [address] [id number] [address] [place] [address], [place] [address] 14 Nov, 2012 [facility] [address] [id number] [address] [place] [address], [place] [address] 28 Oct, 2012 [facility] [address] [id number] [address] [place] [address], [place] [address] 13 Oct, 2012 [facility] [address] [id number] [address] [place] [address], [place] [address] 05 Oct, 2012 [facility] [address] [id number] [address] [place] [address], [place] [address] Oct, [facility] [address] [facility] [id number] [address] [place] [address] Jul, [facility] [address] [facility] [id number] [address] [place] [address] Jun, [facility] [address] [facility] [id number] [address] [place] [address] Jun, [facility] [address] [facility] [id number] [address] [place] [address] May, IMMUNIZATIONS No Known Immunizations SOCIAL HISTORY Never Assessed REASON FOR VISIT BP Reduction Challenge Initial Visit PLAN OF CARE VITAL SIGNS Height 69 in 2018-01-04 Weight 388.0 lbs 2018-01-04 BMI 57.29 kg/m2 2018-01-04 Blood pressure systolic 152 mmHg 2018-01-04 Blood pressure diastolic 94 mmHg 2018-01-04 MEDICATIONS Unknown Medications RESULTS No Results PROCEDURES [...] History post surgeries Hospitalization History [facility]- Abd pain 09/24/2017
--- OUTSIDE RECORDS SUMMARY | 2019-11-21 01:54 | XMS REPORT ---
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 Active 24081348 Problem Type 2 diabetes mellitus with unspecified complications E11.8 Active 10736821 Problem BMI 50.0-59.9, adult Z68.43 Active 654871285 Problem Morbid (severe) obesity due to excess calories E66 .01 Active 741436352 Problem residential current use of insulin Z79.4 Active 139781895 Problem Essential hypertension I10 Active [id number] ALLERGIES No Information ENCOUNTERS Encounter Location Date Diagnosis [facility] [address] [place] [id number] [address] [place] [address] May, [facility] [address] [facility] [id number] [address] [place] [address] Feb, [facility] [address] [facility] [id number] [address] [place] [address] Feb, [facility] [address] [facility] [id number] [address] [place] [address] January, [facility] [address] [place] [id number] [address] [place] [address] January, [facility] [address] [place] [id number] [address] [place] [address] January, Onychomycosis B35.1 ; Callus of foot L84 and Type 2 diabetes mellitus with unspecified complications E11.8 [facility] [address] [place] [id number] [address] [place] [address] January, [facility] [address] [facility] [id number] [place] [address] January, [facility] [address] [place] [id number] [place] [address] January, [facility] [address] [place] [id number] [place] [address] January, [facility] [address] [place] [id number] [place] [address] January, BMI 50.0-59.9, adult Z68.43 [facility] [address] [place] [id number] [place] [address] January, [facility] [address] [place] [id number] [place] [address] January, Acute respiratory distress R 06.03 and Hypoxia R09.02 [facility] [address] [place] [id number] [place] [address] January, [facility] [address] [address] January, Shortness of breath on exert ion R06.02 and BMI 50.0-59.9, adult Z68.43 [facility] [address] [place] [id number] [address] [place] [address] Dec, BMI 50.0-59.9, adult Z68.43 [facility] [address] [facility] [id number] [address] [place] [address] Dec, [facility] [address] [place] [id number] [place] [address] Dec, [facility] [address] [place] [id number] [address] [place] [address] Dec, [facility] [address] [place] [id number] [address] [place] [address] Nov, [place] [address] [address] 14 Nov, 2017 [place] [address] [address] Oct, residential current use of ins ulin Z79.4 ; Type 2 diabetes mellitus with other diabetic neurological complication E11.49 ; Swelling of both lower extremities M79.89 ; Essential hypertension I10 ; BMI 50.0-59.9, adult Z68.43 and Blurry vision H53.8 [place] [address] [address] Sep, Right upper quadrant pain R1 0.11 and Blood in stool K92.1 [facility] [address] [address] Sep, Asymptomatic microscopic hem aturia R31.21 ; Glucose found in urine on examination R81 and BMI 50.0-59.9, adult Z68.[address] [address] Sep, Type 2 diabetes mellitus wit h unspecified complications E11.8 [facility] [place] [address] [address] Aug, Type 2 diabetes mellitus wit h unspecified complications E11.8 ; Benign essential hypertension I10 ; Cough R05 ; Acute bronchitis, unspecified organism J20.9 ; Other viral agents as the cause of diseases classified elsewhere B97.89 and Morbid (severe) obesity due to excess calories E66.01 [facility] [address] [address] May, Acute seasonal allergic rhin itis, unspecified trigger J30.2 and Candidiasis of penis B37.[address] [address] Dec, [address] [address] Dec, [facility] [address] [id number] [address] [place] [address], [place] [address] Oct, [facility] [address] [id number] [address] [place] [address], [place] [address] Oct, [facility] [address] [id number] [address] [place] [address], [place] [address] Dec, [facility] [address] [id number] [address] [place] [address], [place] [address] Dec, [facility] [address] [id number] [address] [place] [address], [place] [address] Dec, [facility] [address] [id number] [address] [place] [address], [place] [address] Dec, [facility] [address] [id number] [address] [place] [address], [place] [address] Dec, [facility] [address] [id number] [address] [place] [address], [place] [address] Dec, [facility] [address] [id number] [address] [place] [address], [place] [address] Nov, [facility] [address] [id number] [address] [place] [address], [place] [address] Nov, [facility] [address] [id number] [address] [place] [address], [place] [address] 23 May, 2013 [facility] [address] [id number] [address] [place] [address], [place] [address] 19 May, 2013 [facility] [address] [id number] [address] [place] [address], [place] [address] 19 May, 2013 [facility] [address] [id number] [address] [place] [address], [place] [address] 17 May, 2013 [facility] [address] [id number] [address] [place] [address], [place] [address] 12 May, 2013 [facility] [address] [id number] [address] [place] [address] Apr, [facility] [place] [address] [id number] [place] [id number] Mar, [facility] [address] [id number] [address] [place] [address], [place] [address] Mar, [facility] [address] [id number] [address] [place] [address], [place] [address] Mar, [facility] [address] [id number] [address] [place] [address], [place] [address] Mar, [facility] [address] [id number] [address] [place] [address], [place] [address] Feb, [facility] [address] [id number] [address] [place] [address], [place] [address] Feb, [facility] [address] [id number] [address] [place] [address], [place] [address] Feb, [facility] [address] [id number] [address] [place] [address], [place] [address] Feb, [facility] [address] [id number] [address] [place] [address], [place] [address] January, [facility] [address] [id number] [address] [place] [address], [place] [address] January, [facility] [address] [id number] [address] [place] [address], [place] [address] January, [facility] [address] [id number] [address] [place] [address], [place] [address] January, [facility] [address] [id number] [address] [place] [address], [place] [address] January, [facility] [address] [id number] [address] [place] [address], [place] [address] January, [facility] [address] [id number] [address] [place] [address], [place] [address] January, [facility] [address] [id number] [address] [place] [address], [place] [address] January, [facility] [address] [id number] [address] [place] [address], [place] [address] January, [facility] [address] [id number] [address] [place] [address], [place] [address] 23 Dec, 2012 [facility] [address] [id number] [address] [place] [address], [place] [address] 18 Dec, 2012 [facility] [address] [id number] [address] [place] [address], [place] [address] 17 Dec, 2012 [facility] [address] [id number] [address] [place] [address], [place] [address] 16 Dec, 2012 [facility] [address] [id number] [address] [place] [address], [place] [address] Dec, [facility] [address] [id number] [address] [place] [address], [place] [address] Dec, [facility] [address] [id number] [address] [place] [address], [place] [address] Dec, [facility] [address] [id number] [address] [place] [address], [place] [address] 26 Nov, 2012 [facility] [address] [id number] [address] [place] [address], [place] [id number] Nov, [facility] [address] [id number] [address] [place] [address], [place] [id number] 14 Nov, 2012 [facility] [address] [id number] [address] [place] [address], [place] [id number] 28 Oct, 2012 [facility] [address] [id number] [address] [place] [address], [place] [id number] 13 Oct, 2012 [facility] [address] [id number] [address] [place] [address], [place] [id number] 05 Oct, 2012 [facility] [address] [id number] [address] [place] [address], [place] [id number] 05 Oct, 2012 [facility] [address] [facility] [id number] [address] [place] [id number] Jul, [facility] [address] [facility] [id number] [address] [place] [id number] Jun, [facility] [address] [facility] [id number] [address] [place] [id number] Jun, [facility] [address] [facility] [id number] [address] [place] [id number] May, IMMUNIZATIONS No Known Immunizations SOCIAL HISTORY Never Assessed REASON FOR VISIT ER note/Triage PLAN OF CARE VITAL SIGNS MEDICATIONS Unknown [...] History post surgeries Hospitalization History [facility]- Abd pain 09/24/2017
--- OUTSIDE RECORDS SUMMARY | 2019-11-21 01:54 | XMS REPORT ---
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 Active 27162003 Problem Type 2 diabetes mellitus with unspecified complications E11.8 Active 75575377 Problem BMI 50.0-59.9, adult Z68.43 Active 733555042 Problem Morbid (severe) obesity due to excess calories E66 .01 Active 779078026 Problem [facility] current use of insulin Z79.4 Active 011280255 Problem Essential hypertension I10 Active 86021315 ALLERGIES No Information ENCOUNTERS Encounter Location Date Diagnosis [facility] [address] [place] [id number] [address] [place] [id number] May, [facility] [address] [facility] [id number] [address] [place] [id number] Feb, [facility] [address] [facility] [id number] [address] [place] [phone] Feb, [facility] [address] [facility] [id number] [address] [place] [phone] January, [facility] [address] [place] [id number] [address] [place] [id number] January, [facility] [address] [place] [id number] [address] [place] [phone] January, Onychomycosis B35.1 ; Callus of foot L84 and Type 2 diabetes mellitus with unspecified complications E11.8 [facility] [address] [place] [id number] [address] [place] [phone] January, [facility] [address] [facility] [id number] [place] [phone] January, [facility] [address] [place] [id number] [place] [phone] January, [facility] [address] [place] [id number] [place] [address] January, [facility] [address] [place] [id number] [place] [address] January, BMI 50.0-59.9, adult Z68.43 [facility] [address] [place] [id number] [place] [phone] January, [facility] [address] [place] [id number] [place] [phone] January, Acute respiratory distress R 06.03 and Hypoxia R09.02 [facility] [address] [place] [id number] [place] [phone] January, [facility] [address] [address] January, Shortness of breath on exert ion R06.02 and BMI 50.0-59.9, adult Z68.43 [facility] [address] [place] [id number] [address] [place] [phone] Dec, BMI 50.0-59.9, adult Z68.43 [facility] [address] [facility] [id number] [address] [place] [phone] Dec, [facility] [address] [place] [id number] [place] [phone] Dec, [facility] [address] [place] [id number] [address] [place] [phone] Dec, [facility] [address] [place] [id number] [address] [place] [phone] Nov, [place] [address] [id number] 14 Nov, 2017 [place] [address] [address] Oct, [facility] current use of ins ulin Z79.4 ; Type 2 diabetes mellitus with other diabetic neurological complication E11.49 ; Swelling of both lower extremities M79.89 ; Essential hypertension I10 ; BMI 50.0-59.9, adult Z68.43 and Blurry vision H53.8 [place] [address] [id number] Sep, Right upper quadrant pain R1 0.11 and Blood in stool K92.1 [facility] [address] [address] Sep, Asymptomatic microscopic hem aturia R31.21 ; Glucose found in urine on examination R81 and BMI 50.0-59.9, adult Z68.[address] [address] Sep, Type 2 diabetes mellitus wit h unspecified complications E11.8 [facility] [place] [address] [address] Aug, Type 2 diabetes mellitus wit h unspecified complications E11.8 ; Benign essential hypertension I10 ; Cough R05 ; Acute bronchitis, unspecified organism J20.9 ; Other viral agents as the cause of diseases classified elsewhere B97.89 and Morbid (severe) obesity due to excess calories E66.01 [facility] [address] [address] May, Acute seasonal allergic rhin itis, unspecified trigger J30.2 and Candidiasis of penis B37.[address] [id number] Dec, [address] [address] Dec, [facility] [address] [id number] [address] [place] [address], [place] [address] Oct, [facility] [address] [id number] [address] [place] [address], [place] [address] Oct, [facility] [address] [id number] [address] [place] [address], [place] [address] Dec, [facility] [address] [id number] [address] [place] [address], [place] [address] Dec, [facility] [address] [id number] [address] [place] [address], [place] [address] Dec, [facility] [address] [id number] [address] [place] [address], [place] [address] Dec, [facility] [address] [id number] [address] [place] [address], [place] [address] Dec, [facility] [address] [id number] [address] [place] [address], [place] [address] Dec, [facility] [address] [id number] [address] [place] [address], [place] [address] Nov, [facility] [address] [id number] [address] [place] [address], [place] [address] Nov, [facility] [address] [id number] [address] [place] [address], [place] [address] 23 May, 2013 [facility] [address] [id number] [address] [place] [address], [place] [address] 19 May, 2013 [facility] [address] [id number] [address] [place] [address], [place] [address] 19 May, 2013 [facility] [address] [id number] [address] [place] [address], [place] [address] 17 May, 2013 [facility] [address] [id number] [address] [place] [address], [place] [address] 12 May, 2013 [facility] [address] [id number] [address] [place] [phone] Apr, [facility] [address] [id number] [place] [id number] Mar, [facility] [address] [id number] [address] [place] [address], [place] [address] Mar, [facility] [address] [id number] [address] [place] [address], [place] [address] Mar, [facility] [address] [id number] [address] [place] [address], [place] [address] Mar, [facility] [address] [id number] [address] [place] [address], [place] [address] Feb, [facility] [address] [id number] [address] [place] [address], [place] [address] Feb, [facility] [address] [id number] [address] [place] [address], [place] [address] Feb, [facility] [address] [id number] [address] [place] [address], [place] [address] Feb, [facility] [address] [id number] [address] [place] [address], [place] [address] January, [facility] [address] [id number] [address] [place] [address], [place] [address] January, [facility] [address] [id number] [address] [place] [address], [place] [address] January, [facility] [address] [id number] [address] [place] [address], [place] [address] January, [facility] [address] [id number] [address] [place] [address], [place] [address] January, [facility] [address] [id number] [address] [place] [address], [place] [address] January, [facility] [address] [id number] [address] [place] [address], [place] [address] January, [facility] [address] [id number] [address] [place] [address], [place] [address] January, [facility] [address] [id number] [address] [place] [address], [place] [address] January, [facility] [address] [id number] [address] [place] [address], [place] [address] 23 Dec, 2012 [facility] [address] [id number] [address] [place] [address], [place] [address] 18 Dec, 2012 [facility] [address] [id number] [address] [place] [address], [place] [address] 17 Dec, 2012 [facility] [address] [id number] [address] [place] [address], [place] [address] 16 Dec, 2012 [facility] [address] [id number] [address] [place] [address], [place] [address] Dec, [facility] [address] [id number] [address] [place] [address], [place] [address] Dec, [facility] [address] [id number] [address] [place] [address], [place] [address] Dec, [facility] [address] [id number] [address] [place] [address], [place] [address] 26 Nov, 2012 [facility] [address] [id number] [address] [place] [address], [place] [address] Nov, [facility] [address] [id number] [address] [place] [address], [place] [address] 14 Nov, 2012 [facility] [address] [id number] [address] [place] [address], [place] [address] 28 Oct, 2012 [facility] [address] [id number] [address] [place] [address], [place] [address] 13 Oct, 2012 [facility] [address] [id number] [address] [place] [address], [place] [address] 05 Oct, 2012 [facility] [address] [id number] [address] [place] [address], [place] [address] 05 Oct, 2012 [facility] [address] [facility] [id number] [address] [place] [id number] Jul, [facility] [address] [facility] [id number] [address] [place] [id number] Jun, [facility] [address] [facility] [id number] [address] [place] [phone] Jun, [facility] [address] [facility] [id number] [address] [place] [phone] May, IMMUNIZATIONS No Known Immunizations SOCIAL HISTORY Never Assessed REASON FOR VISIT BP Reduction Challenge Enroll PLAN OF CARE VITAL SIGNS MEDICATIONS Unknown [...] History post surgeries Hospitalization History [facility] [place]- Abd pain 09/24/2017
--- OUTSIDE RECORDS SUMMARY | 2019-11-21 01:55 | XMS REPORT ---
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 Active 61889753 Problem Type 2 diabetes mellitus with unspecified complications E11.8 Active 90400158 Problem BMI 50.0-59.9, adult Z68.43 Active 290214663 Problem Morbid (severe) obesity due to excess calories E66 .01 Active 453152814 Problem alf current use of insulin Z79.4 Active 612001937 Problem Essential hypertension I10 Active [id number] ALLERGIES No Known Allergies ENCOUNTERS Encounter Location Date Diagnosis [place] [id number] [place] [address] May, [facility] [address] [place] [id number] [place] [address] Feb, [place] [address] [place] [id number] [place] [address] Feb, [facility] [address] [place] [id number] [place] [address] January, [facility] [address] [place] [address] January, [facility] [address] [place] [address] January, Onychomycosis B35.1 ; Callus of foot L84 and Type 2 diabetes mellitus with unspecified complications E11.8 [facility] [address] [place] [id number] [place] [address] January, [facility] [address] [facility] [id number] [place] [address] January, [facility] [address] [facility] [id number] [address] [place] [address] January, [facility] [address] [place] [id number] [place] [address] January, [facility] [address] [place] [id number] [place] [address] January, BMI 50.0-59.9, adult Z68.43 [facility] [address] [place] [id number] [place] [address] January, [facility] [address] [place] [id number] [place] [address] January, Acute respiratory distress R 06.03 and Hypoxia R09.02 [facility] [address] [place] [id number] [place] [address] January, [facility] [address] [place] [id number] [place] [address] January, Shortness of breath on exert ion R06.02 and BMI 50.0-59.9, adult Z68.43 [facility] [address] [place] [id number] [address] [place] [address] Dec, BMI 50.0-59.9, adult Z68.43 [facility] [address] [place] [id number] [address] [place] [address] Dec, [facility] [address] [place] [id number] [place] [address] Dec, [facility] [address] [facility] [id number] [address] [place] [address] Dec, [facility] [address] [place] [id number] [address] [place] [address] Nov, [place] [address] [address] Nov, [place] [address] [address] Oct, alf current use of ins ulin Z79.4 ; Type 2 diabetes mellitus with other diabetic neurological complication E11.49 ; Swelling of both lower extremities M79.89 ; Essential hypertension I10 ; BMI 50.0-59.9, adult Z68.43 and Blurry vision H53.8 [place] [address] [address] Sep, Right upper quadrant pain R1 0.11 and Blood in stool K92.[address] [facility] [address] [address] Sep, Asymptomatic microscopic hem aturia R31.21 ; Glucose found in urine on examination R81 and BMI 50.0-59.9, adult Z68.43 [place] [address] [address] Sep, Type 2 diabetes mellitus wit h unspecified complications E11.[address] [facility] [address] [address] Aug, Type 2 diabetes mellitus wit h unspecified complications E11.8 ; Benign essential hypertension I10 ; Cough R05 ; Acute bronchitis, unspecified organism J20.9 ; Other viral agents as the cause of diseases classified elsewhere B97.89 and Morbid (severe) obesity due to excess calories E66.[address] [facility] [address] [address] May, Acute seasonal allergic rhin itis, unspecified trigger J30.2 and Candidiasis of penis B37.[address] [address] 14 Dec, [address] [address] Dec, [facility] [address] [id number] [address] [place] [address], [place] [address] Oct, [facility] [address] [id number] [address] [place] [address], [place] [address] Oct, [facility] [address] [id number] [address] [place] [address], [place] [address] Dec, [facility] [address] [id number] [address] [place] [address], [place] [address] Dec, [facility] [address] [id number] [address] [place] [address], [place] [address] Dec, [facility] [address] [id number] [address] [place] [address], [place] [address] Dec, [facility] [address] [id number] [address] [place] [address], [place] [address] Dec, [facility] [address] [id number] [address] [place] [address], [place] [address] Dec, [facility] [address] [id number] [address] [place] [address], [place] [address] Nov, [facility] [address] [id number] [address] [place] [address], [place] [address] Nov, [facility] [address] [id number] [address] [place] [address], [place] [address] 23 May, 2013 [facility] [address] [id number] [address] [place] [address], [place] [address] 19 May, 2013 [facility] [address] [id number] [address] [place] [address], [place] [address] 19 May, 2013 [facility] [address] [id number] [address] [place] [address], [place] [address] 17 May, 2013 [facility] [address] [id number] [address] [place] [address], [place] [address] 12 May, 2013 [facility] [address] [id number] [address] [place] [address], [place] [address] Apr, [facility] [address] [id number] [id number] Mar, [facility] [address] [id number] [address] [place] [address], [place] [address] Mar, [facility] [address] [id number] [address] [place] [address], [place] [address] Mar, [facility] [address] [id number] [address] [place] [address], [place] [address] Mar, [facility] [address] [id number] [address] [place] [address], [place] [address] Feb, [facility] [address] [id number] [address] [place] [address], [place] [address] Feb, [facility] [address] [id number] [address] [place] [address], [place] [address] Feb, [facility] [address] [id number] [address] [place] [address], [place] [address] Feb, [facility] [address] [id number] [address] [place] [address], [place] [address] January, [facility] [address] [id number] [address] [place] [address], [place] [address] January, [facility] [address] [id number] [address] [place] [address], [place] [address] January, [facility] [address] [id number] [address] [place] [address], [place] [address] January, [facility] [address] [id number] [address] [place] [address], [place] [address] January, [facility] [address] [id number] [address] [place] [address], [place] [address] January, [facility] [address] [id number] [address] [place] [address], [place] [address] January, [facility] [address] [id number] [address] [place] [address], [place] [address] January, [facility] [address] [id number] [address] [place] [address], [place] [address] January, [facility] [address] [id number] [address] [place] [address], [place] [address] Dec, [facility] [address] [id number] [address] [place] [address], [place] [address] 18 Dec, 2012 [facility] [address] [id number] [address] [place] [address], [place] [address] 17 Dec, 2012 [facility] [address] [id number] [address] [place] [address], [place] [address] Dec, [facility] [address] [id number] [address] [place] [address], [place] [address] Dec, [facility] [address] [id number] [address] [place] [address], [place] [address] Dec, [facility] [address] [id number] [address] [place] [address], [place] [address] Dec, [facility] [address] [id number] [address] [place] [address], [place] [address] Nov, [facility] [address] [id number] [address] [place] [address], [place] [address] Nov, [facility] [address] [id number] [address] [place] [address], [place] [address] Nov, [facility] [address] [id number] [address] [place] [address], [place] [address] 28 Oct, 2012 [facility] [address] [id number] [address] [place] [address], [place] [address] 13 Oct, 2012 [facility] [address] [id number] [address] [place] [address], [place] [address] 05 Oct, 2012 [facility] [address] [id number] [address] [place] [address] Oct, [facility] [address] [facility] [id number] [address] [place] [address] Jul, [facility] [address] [facility] [id number] [address] [place] [address] Jun, [facility] [address] [facility] [id number] [address] [place] [address] Jun, [facility] [address] [facility] [id number] [address] [place] [address] May, IMMUNIZATIONS No Known Immunizations SOCIAL HISTORY Never Assessed REASON FOR VISIT blood in stool/urine-The patient was seen at the hospital for a bleeding ulcer a bout a week and a half ago. The patient is also having diarrhea. The patient esteves s been having red bloody urine mostly in the mornings and bright red blood in hi s stools every time.--[facility] PLAN OF CARE Activity Details Follow Up sent to ER Reason: VITAL SIGNS Height 69 in 2017-10-06 Weight 376 lbs 2017-10-06 Temperature 98.5 degrees Fahrenheit 2017-10-06 Heart Rate 98 bpm 2017-10-06 Respiratory Rate 24 2017-10-06 BMI 55.52 kg/m2 2017-10-06 Blood pressure systolic 142 mmHg 2017-10-06 Blood pressure diastolic 68 mmHg 2017-10-06 MEDICATIONS Medication Instructions Dosage Frequency Start Date End Date Duration S tatus Multivitamin by Oral route once daily. Oct, Active Cymbalta 60 mg take 1 capsules by Oral route 1 time per day Feb, Active Basaglar KwikPen 100 UNIT/ML Subcutaneous 100 units 2 times a day a s directed Sep, 30 days Active Omeprazole 20 mg take 1 capsule (20 m g) by oral route once daily before a meal Feb, Active Risperdal 1 mg 1 tablet by Oral rou te 1 time per day 1mg in AM 3mg at bedtime. Feb, Active Lisinopril 40 MG Orally Once a day 1 tablet 24h Aug, 30 day(s) Active Flonase 50 MCG/ACT Nasally Once a day 1 spray in each nostril 24h May, 30 day(s) Active Aspirin 81 mg take 1 tablet (81 mg) by oral route once daily Feb, Active Ibuprofen 800 mg take 1 tablet (800 m g) by oral route 3 times per day with food May, Active HydrOXYzine HCl 25 mg 1 tablet by Oral route 2 times p er day PRN Feb, Active Humalog 100 UNIT/ML Subcutaneous 3 times a day patient is on sliding scale - use as instructed up to 35 units with meal 8h Aug, 12 months Active Amlodipine Besylate 5 Orally Once a day 1 tablet 24h 30 Active Oxycodone-Acetaminophen 5-325 mg 1 tablet by Oral rout e every 6 hours January, Active Amlodipine Besylate 5 mg Orally Once a day 1 tablet 24h Aug, 30 day(s) Active Accu-Chek Angela Plus 1 subcutaneously 3 times a day test 3 times pe r day 8h Aug, 12 months Active Flonase 50 Nasally Once a day 1 spray in each nostril 24h 60 Active RESULTS Name Result Date Reference Range GLUCOSE FINGERSTICK (IN HOUSE) 2017-10-06 GLU FINGERSTICK HIGH PC 9:00 A.M. Lot # [id number] Exp date 03/16/18 UA LONG DIP (IN HOUSE) 2017-10-06 Lot # [id number] Exp date 06/2018 Clarity turbid Color light yellow Odor none GLU 2+ KETURAH Negative KET Negative SG <=1.005 BLO Trace-lysed pH 5.5 Protein Negative URO 0.2 NIT Negative LUC 1+ Lot # [id number] Exp date 12/2017 PROCEDURES Procedure Date Ordered Result Body Site URINALYSIS, AUTO, W/O SCOPE Oct 06, 2017 GLUCOSE BLOOD TEST Oct 06, 2017 [facility] VISIT ESTABLISHED PATIENT Oct 06, 2017 INSTRUCTIONS MEDICATIONS ADMINISTERED No Known Medications MEDICAL (GENERAL) HISTORY Type Description Date Medical History bleeding ulcer Medical History type 2 diabetes Medical History stents in pancreas Medical History hypertension Medical History schizophrenia Surgical History bilateral knees...scopes Surgical History stent placed in pancreas Surgical History stent removed form pancreas Hospitalization History post surgeries Hospitalization History [facility]- Abd pain 09/24/2017
--- OUTSIDE RECORDS SUMMARY | 2019-11-21 01:55 | XMS REPORT ---
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 Active 80860753 Problem Type 2 diabetes mellitus with unspecified complications E11.8 Active 55976303 Problem BMI 50.0-59.9, adult Z68.43 Active 346211072 Problem Morbid (severe) obesity due to excess calories E66 .01 Active 280584396 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 193029344 Problem Essential hypertension I10 Active 29213657 ALLERGIES No Known Allergies ENCOUNTERS Encounter Location Date Diagnosis [facility] [address] [facility] [id number] [address] [place] [phone] May, [facility] [address] [facility] [id number] [address] [place] [phone] Feb, [facility] [address] [facility] [id number] [address] [place] [phone] January, [facility] [address] [facility] [id number] [address] [place] [phone] January, [facility] [address] [facility] [id number] [address] [place] [id number] January, Onychomycosis B35.1 ; Callus of foot L84 and Type 2 diabetes mellitus with unspecified complications E11.8 [facility] [address] [facility] [id number] [address] [place] [id number] January, [facility] [address] [facility] [id number] [address] [place] [phone] January, [facility] [address] [place] [place] [id number] [place] [id number] January, [facility] [id number] [place] [address] January, [facility] [id number] [place] [address] January, BMI 50.0-59.9, adult Z68.43 [facility] [id number] [place] [id number] January, [facility] [address] [address] January, Acute respiratory distress R 06.03 and Hypoxia R09.02 [facility] [address] [address] January, [facility] [address] [address] January, Shortness of breath on exert ion R06.02 and BMI 50.0-59.9, adult Z68.43 [facility] [address] [place] [id number] [address] [place] [id number] Dec, BMI 50.0-59.9, adult Z68.43 [facility] [address] [place] [place] [id number] [address] [place] [phone] Dec, [facility] [address] [id number] [address] [place] [phone] Dec, [facility] [address] [id number] [address] [place] [phone] Dec, [facility] [address] [id number] [address] [place] [phone] Nov, [facility] [address] [id number] [address] [place] [phone] Nov, [address] [address] Oct, termite treater 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 use of 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 ulin Z79.4 ; Type 2 diabetes mellitus with other diabetic neurological complication E11.49 ; Swelling of both lower extremities M79.89 ; Essential hypertension I10 ; BMI 50.0-59.9, adult Z68.43 and Blurry vision H53.[address] [address] Sep, Right upper quadrant pain R1 0.11 and Blood in stool K92.1 [facility] [place] [address] [address] Sep, Asymptomatic microscopic hem aturia R31.21 ; Glucose found in urine on examination R81 and BMI 50.0-59.9, adult Z68.[address] [address] Sep, Type 2 diabetes mellitus wit h unspecified complications E11.8 [facility] [place] [address] [address] Aug, Type 2 diabetes mellitus wit h unspecified complications E11.8 ; Benign essential hypertension I10 ; Cough R05 ; Acute bronchitis, unspecified organism J20.9 ; Other viral agents as the cause of diseases classified elsewhere B97.89 and Morbid (severe) obesity due to excess calories E66.01 [facility] [place] [address] [address] May, Acute seasonal allergic rhin itis, unspecified trigger J30.2 and Candidiasis of penis B37.[address] [address] Dec, [address] [address] Dec, [address] [address] Oct, [facility] [address] [id number] [address] [place] [address], [place] [address] Oct, [facility] [address] [id number] [address] [place] [address], [place] [address] Dec, [facility] [address] [id number] [address] [place] [address], [place] [address] Dec, [facility] [address] [id number] [address] [place] [address], [place] [address] Dec, [facility] [address] [id number] [address] [place] [address], [place] [address] Dec, [facility] [address] [id number] [address] [place] [address], [place] [address] Dec, [facility] [address] [id number] [address] [place] [address], [place] [address] Dec, [facility] [address] [id number] [address] [place] [address], [place] [address] Nov, [facility] [address] [id number] [address] [place] [address], [place] [address] Nov, [facility] [address] [id number] [address] [place] [address], [place] [address] May, [facility] [address] [id number] [address] [place] [address], [place] [address] May, [facility] [address] [id number] [address] [place] [address], [place] [address] 19 May, 2013 [facility] [address] [id number] [address] [place] [address], [place] [address] 17 May, 2013 [facility] [address] [id number] [address] [place] [address], [place] [address] 12 May, 2013 [facility] [address] [id number] [address] [place] [address], [place] [address] 06 Apr, 2013 [facility] [address] [id number] [place], [facility] [id number] Mar, [facility] [address] [id number] [address] [place] [address], [place] [address] Mar, [facility] [address] [id number] [address] [place] [address], [place] [address] Mar, [facility] [address] [id number] [address] [place] [address], [place] [address] Mar, [facility] [address] [id number] [address] [place] [address], [place] [address] Feb, [facility] [address] [id number] [address] [place] [address], [place] [address] Feb, [facility] [address] [id number] [address] [place] [address], [place] [address] Feb, [facility] [address] [id number] [address] [place] [address], [place] [address] Feb, [facility] [address] [id number] [address] [place] [address], [place] [address] January, [facility] [address] [id number] [address] [place] [address], [place] [address] January, [facility] [address] [id number] [address] [place] [address], [place] [address] January, [facility] [address] [id number] [address] [place] [address], [place] [address] January, [facility] [address] [id number] [address] [place] [address], [place] [address] January, [facility] [address] [id number] [address] [place] [address], [place] [address] January, [facility] [address] [id number] [address] [place] [address], [place] [address] January, [facility] [address] [id number] [address] [place] [address], [place] [address] January, [facility] [address] [id number] [address] [place] [address], [place] [address] January, [facility] [address] [id number] [address] [place] [address], [place] [address] 23 Dec, 2012 [facility] [address] [id number] [address] [place] [address], [place] [address] 18 Dec, 2012 [facility] [address] [id number] [address] [place] [address], [place] [address] 17 Dec, 2012 [facility] [address] [id number] [address] [place] [address], [place] [address] 16 Dec, 2012 [facility] [address] [id number] [address] [place] [address], [place] [address] 16 Dec, 2012 [facility] [address] [id number] [address] [place] [address], [place] [address] Dec, [facility] [address] [id number] [address] [place] [address], [place] [address] Dec, [facility] [address] [id number] [address] [place] [address], [place] [address] 26 Nov, 2012 [facility] [address] [id number] [address] [place] [address], [place] [address] Nov, [facility] [address] [id number] [address] [place] [address], [place] [address] 14 Nov, 2012 [facility] [address] [id number] [address] [place] [address], [place] [address] 28 Oct, 2012 [facility] [address] [id number] [address] [place] [address], [place] [address] 13 Oct, 2012 [facility] [address] [id number] [address] [place] [address], [place] [address] 05 Oct, 2012 [facility] [address] [id number] [address] [place] [address], [place] [address] 05 Oct, 2012 [facility] [address] [id number] [address] [place] [address], [place] [address] Jul, [facility] [address] [facility] [id number] [address] [place] [phone] Jun, [facility] [address] [facility] [id number] [address] [place] [phone] Jun, [facility] [address] [facility] [id number] [address] [place] [address] 13 May, 2010 IMMUNIZATIONS No Known Immunizations SOCIAL HISTORY Never Assessed REASON FOR VISIT productive cough, sore throat, sob and diarrhea started last week JStrasserRN PLAN OF CARE Activity Details Follow Up prn Reason:est care VITAL SIGNS Height 69 in 2017-08-27 Weight 371.8 lbs 2017-08-27 Temperature 97.0 degrees Fahrenheit 2017-08-27 Heart Rate 96 bpm 2017-08-27 Respiratory Rate 22 2017-08-27 Oximetry 95 % 2017-08-27 BMI 54.90 kg/m2 2017-08-27 Blood pressure systolic 140 mmHg 2017-08-27 Blood pressure diastolic 80 mmHg 2017-08-27 MEDICATIONS Medication Instructions Dosage Frequency Start Date End Date Duration S tatus PredniSONE 20 mg Orally Once a day 1 tablet 24h Aug, Aug, 05 days Active Flonase 50 MCG/ACT Nasally Once a day 1 spray in each nostril 24h May, 30 day(s) Active HydrOXYzine HCl 25 mg 1 tablet by Oral route 2 times p er day PRN Feb, Active Oxycodone-Acetaminophen 5-325 mg 1 tablet by Oral rout e every 6 hours January, Active Ibuprofen 800 mg take 1 tablet (800 m g) by oral route 3 times per day with food May, Active Multivitamin by Oral route once daily. Oct, Active Humalog 100 UNIT/ML Subcutaneous 3 times a day patient is on sliding scale - use as instructed up to 35 units with meal 8h Aug, 12 months Active Accu-Chek Angela Plus 1 subcutaneously 3 times a day test 3 times pe r day 8h Aug, 12 months Active Azithromycin 250 MG Orally Once a day 2 tablets on the fi rst day, then 1 tablet daily for 4 days 24h Aug, Aug, 5 day(s) Active Lantus SoloStar 100 unit/mL (3 mL) Subcutaneous 2 times a da y 100 units twice daily 12h 09 Dec, 2013 12 months Active Flonase 50 Nasally Once a day 1 spray in each nostril 24h 60 Active Risperdal 1 mg 1 tablet by Oral rou te 1 time per day 1mg in AM 3mg at bedtime. Feb, Active Amlodipine Besylate 5 mg Orally Once a day 1 tablet 24h Aug, 30 day(s) Active Cymbalta 60 mg take 1 capsules by Oral route 1 time per day Feb, Active Omeprazole 20 mg take 1 capsule (20 m g) by oral route once daily before a meal Feb, Active metformin 850 mg by oral route 3 times a day take 1 table t (850 mg) by oral route 3 times per day with meals 8h Feb, Sep, 28 days Active Aspirin 81 mg take 1 tablet (81 mg) by oral route once daily Feb, Active Lisinopril 40 MG Orally Once a day 1 tablet 24h Aug, 30 day(s) Active RESULTS Name Result Date Reference Range Xray : Chest (IN HOUSE) 2017-08-27 PROCEDURES Procedure Date Ordered Result Body Site MEASURE BLOOD OXYGEN LEVEL Aug 27, 2017 CHEST X-RAY Aug 27, 2017 [facility] VISIT ESTABLISHED PATIENT Aug 27, 2017 INSTRUCTIONS MEDICATIONS ADMINISTERED No Known Medications MEDICAL (GENERAL) HISTORY Type Description Date Medical History bleeding ulcer Medical History type 2 diabetes Medical History stents in pancreas Medical History hypertension Medical History schizophrenia Surgical History bilateral knees...scopes Surgical History stent placed in pancreas Surgical History stent removed form pancreas Hospitalization History post surgeries Hospitalization History [facility] [place]- Abd pain 09/24/2017
--- OUTSIDE RECORDS SUMMARY | 2019-11-21 01:55 | XMS REPORT ---
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 Active 03698233 Problem Type 2 diabetes mellitus with unspecified complications E11.8 Active 83887024 Problem BMI 50.0-59.9, adult Z68.43 Active 145452140 Problem Morbid (severe) obesity due to excess calories E66 .01 Active 902939566 Problem correction current use of insulin Z79.4 Active 918987411 Problem Essential hypertension I10 Active [id number] ALLERGIES No Information ENCOUNTERS Encounter Location Date Diagnosis [facility] [address] [place] [id number] [address] [place] [id number] May, [facility] [address] [facility] [id number] [address] [place] [address] Feb, [facility] [address] [facility] [id number] [address] [place] [address] Feb, [facility] [address] [facility] [id number] [address] [place] [address] January, [facility] [address] [place] [place] [id number] [address] [place] [phone] January, [facility] [address] [place] [id number] [address] [place] [address] January, Onychomycosis B35.1 ; Callus of foot L84 and Type 2 diabetes mellitus with unspecified complications E11.8 [facility] [address] [place] [id number] [address] [place] [address] January, [facility] [address] [facility] [id number] [place] [phone] January, [facility] [address] [place] [id number] [place] [phone] January, [facility] [address] [place] [id number] [place] [address] January, [facility] [address] [place] [id number] [place] [address] January, BMI 50.0-59.9, adult Z68.43 [facility] [address] [place] [id number] [place] [address] January, [facility] [address] [id number] [place] [phone] January, Acute respiratory distress R 06.03 and Hypoxia R09.02 [facility] [address] [id number] [place] [phone] January, [facility] [address] [address] January, Shortness of breath on exert ion R06.02 and BMI 50.0-59.9, adult Z68.43 [facility] [address] [place] [place] [id number] [address] [place] [address] Dec, BMI 50.0-59.9, adult Z68.43 [facility] [address] [facility] [id number] [address] [place] [address] Dec, [facility] [address] [place] [id number] [place] [address] Dec, [facility] [address] [place] [id number] [address] [place] [phone] Dec, [facility] [address] [place] [place] [id number] [address] [place] [phone] Nov, [place] [address] [address] 14 Nov, 2017 [place] [address] [address] Oct, correction current use of ins ulin Z79.4 ; Type 2 diabetes mellitus with other diabetic neurological complication E11.49 ; Swelling of both lower extremities M79.89 ; Essential hypertension I10 ; BMI 50.0-59.9, adult Z68.43 and Blurry vision H53.8 [place] [address] [address] Sep, Right upper quadrant pain R1 0.11 and Blood in stool K92.1 [facility] [address] [address] Sep, Asymptomatic microscopic hem aturia R31.21 ; Glucose found in urine on examination R81 and BMI 50.0-59.9, adult Z68.[address] [address] Sep, Type 2 diabetes mellitus wit h unspecified complications E11.8 [facility] [address] [address] Aug, Type 2 diabetes mellitus wit h unspecified complications E11.8 ; Benign essential hypertension I10 ; Cough R05 ; Acute bronchitis, unspecified organism J20.9 ; Other viral agents as the cause of diseases classified elsewhere B97.89 and Morbid (severe) obesity due to excess calories E66.01 [facility] [address] [address] May, Acute seasonal allergic rhin itis, unspecified trigger J30.2 and Candidiasis of penis B37.[address] [address] Dec, [address] [address] Dec, [facility] [address] [id number] [address] [place] [address], [place] [address] Oct, [facility] [address] [id number] [address] [place] [address], [place] [address] Oct, [facility] [address] [id number] [address] [place] [address], [place] [address] Dec, [facility] [address] [id number] [address] [place] [address], [place] [address] Dec, [facility] [address] [id number] [address] [place] [address], [place] [address] Dec, [facility] [address] [id number] [address] [place] [address], [place] [address] Dec, [facility] [address] [id number] [address] [place] [address], [place] [address] Dec, [facility] [address] [id number] [address] [place] [address], [place] [address] Dec, [facility] [address] [id number] [address] [place] [address], [place] [address] Nov, [facility] [address] [id number] [address] [place] [address], [place] [address] Nov, [facility] [address] [id number] [address] [place] [address], [place] [address] 23 May, 2013 [facility] [address] [id number] [address] [place] [address], [place] [address] 19 May, 2013 [facility] [address] [id number] [address] [place] [address], [place] [address] 19 May, 2013 [facility] [address] [id number] [address] [place] [address], [place] [address] 17 May, 2013 [facility] [address] [id number] [address] [place] [address], [place] [address] 12 May, 2013 [facility] [address] [id number] [address] [place] [address] Apr, [facility] [address] [id number] [place], [place] S [id number] Mar, [facility] [address] [id number] [address] [place] [address], [place] [address] Mar, [facility] [address] [id number] [address] [place] [address], [place] [address] Mar, [facility] [address] [id number] [address] [place] [address], [place] [address] Mar, [facility] [address] [id number] [address] [place] [address], [place] [address] Feb, [facility] [address] [id number] [address] [place] [address], [place] [address] Feb, [facility] [address] [id number] [address] [place] [address], [place] [address] Feb, [facility] [address] [id number] [address] [place] [address], [place] [address] Feb, [facility] [address] [id number] [address] [place] [address], [place] [address] January, [facility] [address] [id number] [address] [place] [address], [place] [address] January, [facility] [address] [id number] [address] [place] [address], [place] [address] January, [facility] [address] [id number] [address] [place] [address], [place] [address] January, [facility] [address] [id number] [address] [place] [address], [place] [address] January, [facility] [address] [id number] [address] [place] [address], [place] [address] January, [facility] [address] [id number] [address] [place] [address], [place] [address] January, [facility] [address] [id number] [address] [place] [address], [place] [address] January, [facility] [address] [id number] [address] [place] [address], [place] [address] January, [facility] [address] [id number] [address] [place] [address], [place] [address] 23 Dec, 2012 [facility] [address] [id number] [address] [place] [address], [place] [address] 18 Dec, 2012 [facility] [address] [id number] [address] [place] [address], [place] [address] 17 Dec, 2012 [facility] [address] [id number] [address] [place] [address], [place] [address] 16 Dec, 2012 [facility] [address] [id number] [address] [place] [address], [place] [address] Dec, [facility] [address] [id number] [address] [place] [address], [place] [address] Dec, [facility] [address] [id number] [address] [place] [address], [place] [address] Dec, [facility] [address] [id number] [address] [place] [address], [place] [address] 26 Nov, 2012 [facility] [address] [id number] [address] [place] [address], [place] [address] Nov, [facility] [address] [id number] [address] [place] [address], [place] [address] 14 Nov, 2012 [facility] [address] [id number] [address] [place] [address], [place] [address] 28 Oct, 2012 [facility] [address] [id number] [address] [place] [address], [place] [address] 13 Oct, 2012 [facility] [address] [id number] [address] [place] [address], [place] [address] 05 Oct, 2012 [facility] [address] [id number] [address] [place] [address], [place] [address] Oct, [facility] [address] [facility] [id number] [address] [place] [address] Jul, [facility] [address] [facility] [id number] [address] [place] [address] Jun, [facility] [address] [facility] [id number] [address] [place] [address] Jun, [facility] [address] [facility] [id number] [address] [place] [address] May, IMMUNIZATIONS No Known Immunizations SOCIAL HISTORY Never Assessed REASON FOR VISIT Refill request PLAN OF CARE VITAL SIGNS MEDICATIONS Medication Instructions Dosage Frequency Start Date End Date Duration S tatus Metformin HCl 850 TAKE ONE TABLET BY MOUTH THREE TIMES A D AY WITH A MEAL Active Potassium Chloride ER 10 MEQ Orally Once a day 1 tablet with food 24h Active Omeprazole 40 mg by oral route 2 times a day 1 capsule 12h 27 Iban, 2 013 Active Sucralfate 1 GM Orally 4 times a day 1 tablet 6h Active RESULTS No Results PROCEDURES No Known [...] History post surgeries Hospitalization History [facility] [place]- Abd pain 09/24/2017
--- OUTSIDE RECORDS SUMMARY | 2019-11-21 01:56 | XMS REPORT | Continuity of Care Document ---
Author Organization Unknown Address Unknown Phone Unavailable Allergies Active Description Code Type Severity Reaction Onset Reported/Identified Relationship to Patient Clinical Status Yes NO KNOWN DRUG ALLERGIES UNKNOWN NO KNOWN DRUG ALLERG Yes NO KNOWN DRUG ALLERGIES UNKNOWN UNKNOWN Yes NKANo Known Allergies NKA Miscellaneous Allergy Unknown N/A 10/10/2005 Yes metformin Drug Allergy 06/14/2010 Yes metformin Drug Allergy N/A N/A 06/14/2010 Yes No Known Drug Allergies [id number] Drug Allergy Unknown N/A 10/12/2017 Medications Medication Packaging Start Date St op Date Route Dosage Sig GI COCKTAIL SINGLE DOSE LIQ (GRASSHOPPER) ML 07/10/2018 07/10/2018 ONCE&0838 FENTANYL INJ 100 MCG/2CC VIAL MCG 07/10/2018 07/10/2018 ONCE&0838 LACTATED RINGERS 1000CC IV BAG INJ ml 07/10/2018 07/10/2018 ONCE&0838 PHENAZOPYRIDINE TAB 100 MG (PYRIDIUM) MG 08/28/2018 08/28/2018 ONCE&1305 KETOROLAC VIAL INJ 30 MG/CC (TORADOL VIAL) MG 08/28/2018 08/28/2018 PRN ONCE NORMAL SALINE 1000CC IV BAG INJ 0.9 % (NS 1000CC IV BAG) ml 08/28/2018 08/28/2018 ONCE&1305 INSULIN REGULAR HUMAN INJ 10 0 UNITS/CC (HUMULIN R / NOVOLIN R INSULIN) UNITS 08/28/2018 08/28/2018 ONCE&132 6 Morphine IV cartridge 4mg/cc MG 08/28/2018 08/28/2018 PRN ONCE KETOROLAC VIAL INJ 60 MG/2CC (TORADOL VIAL ) MG 11/12/2018 11/12/2018 ONCE&1642 HYDROCODONE/APAP 5MG/325MG T AB 5 MG/325MG (JOSÉ ANTONIO-TAB 5/325) TAB 11/12/2018 11/12/2018 ONCE&1642 KETOROLAC VIAL INJ 30 MG/CC (TORADOL VIAL) MG 11/21/2018 11/21/2018 ONCE&0130 CYCLOBENZAPRINE TAB 10 MG (FLEXERIL) MG 11/21/2018 11/21/2018 ONCE&0202 LORAZEPAM 1CC VIAL INJ 2 MG/CC (ATIVAN VIA L) MG 02/06/2019 02/06/2019 ONCE&2146 Normal SALINE 0.9 % (NS 100cc) (plain bag) ml 02/06/2019 02/06/2019 ONCE&2228 KETOROLAC VIAL INJ 60 MG/2CC (TORADOL VIAL ) MG 10/13/2019 10/13/2019 ONCE&0531 LORAZEPAM 1CC VIAL INJ 2 MG/CC (ATIVAN VIA L) MG 11/17/2019 11/17/2019 ONCE&1716 FENTANYL INJ 100 MCG/2CC VIAL MCG 11/17/2019 11/17/2019 ONCE&1716 FENTANYL INJ 100 MCG/2CC VIAL MCG 11/17/2019 11/17/2019 ONCE&1717 ORPHENADRINE INJ 60 MG/2CC (NORFLEX) MG 11/17/2019 11/17/2019 ONCE&1723 NORMAL SALINE 1000CC IV BAG INJ 0.9 % (NS 1000CC IV BAG) ml 11/17/2019 11/17/2019 ONCE&1737 INSULIN REGULAR HUMAN INJ 10 0 UNITS/CC (HUMULIN R / NOVOLIN R INSULIN) UNITS 11/17/2019 11/17/2019 ONCE&173 7 Problems Date Dx Coded Attending Type Code Diagnosis Diagnosed By 03/06/2006 Ot 278.00 03/06/2006 Ot 780.52 03/06/2006 Ot 786.09 02/02/2010 Ot 250.00 ALVIN B DAILY WO COMPL, TYPE II OR UNSPEC TY 02/02/2010 Ot 278.01 MOR BID OBESITY 02/02/2010 Ot 300.4 DYST HYMIC DISORDER 02/02/2010 Ot 327.23 OBS TRUCTIVE SLEEP APNEA (ADULT) (PEDIATR 02/02/2010 Ot 401.0 JAZMIN GNANT HYPERTENSION 02/02/2010 Ot 577.1 HUB CUTTER BENSON PANCREATITIS 02/02/[address] PAIN NEC 02/02/2010 Ot V15.81 HX OF PAST NONCOMPLIANCE 02/02/2010 Ot V85.4 BODY MASS INDEX 40 AND OVER, ADULT 02/04/2010 Ot 250.00 ALVIN B DAILY WO COMPL, TYPE II OR UNSPEC TY 02/04/2010 Ot 272.4 HYPE RLIPIDEMIA NEC/NOS 02/04/2010 Ot 278.01 MOR BID OBESITY 02/04/2010 Ot 401.9 HYPE RTENSION NOS 02/04/[address] PAIN NOS 02/04/2010 Ot V58.66 ELROY G-TERM (CURRENT) USE OF ASPIRIN 02/04/2010 Ot V58.69 OTH MED,LT,CURRENT USE 05/03/2010 JOAQUIN QURESHI, RIOS 250.0 0 DIABETES MELLITUS TYPE 2 05/03/2010 JOAQUIN QURESHI, RIOS 401.9 HYPERTENSION, UNSPECIFIED ESSENTIAL 05/03/2010 JOAQUIN QURESHI, RIOS 250.0 0 DIABETES MELLITUS TYPE 2 05/03/2010 JOAQUIN QURESHI, RIOS 401.9 HYPERTENSION, UNSPECIFIED ESSENTIAL 05/03/2010 JOAQUIN QURESHI, RIOS 250.0 0 DIABETES MELLITUS TYPE 2 05/03/2010 JOAUQIN QURESHI, RIOS 401.9 HYPERTENSION, UNSPECIFIED ESSENTIAL 05/03/2010 250.00 ALVIN BETES MELLITUS TYPE 2 05/03/2010 401.9 HYPE RTENSION, UNSPECIFIED ESSENTIAL 05/03/2010 250.00 ALVIN BETES MELLITUS TYPE 2 05/03/2010 401.9 HYPE RTENSION, UNSPECIFIED ESSENTIAL 05/03/2010 250.00 ALVIN BETES MELLITUS TYPE 2 05/03/2010 401.9 HYPE RTENSION, UNSPECIFIED ESSENTIAL 05/03/2010 250.00 ALVIN BETES MELLITUS TYPE 2 05/03/2010 401.9 HYPE RTENSION, UNSPECIFIED ESSENTIAL 05/03/2010 250.00 ALVIN BETES MELLITUS TYPE 2 05/03/2010 401.9 HYPE RTENSION, UNSPECIFIED ESSENTIAL 05/03/2010 250.00 ALVIN BETES MELLITUS TYPE 2 05/03/2010 401.9 HYPE RTENSION, UNSPECIFIED ESSENTIAL 05/03/2010 250.00 ALVIN BETES MELLITUS TYPE 2 05/03/2010 401.9 HYPE RTENSION, UNSPECIFIED ESSENTIAL 05/03/2010 250.00 ALVIN BETES MELLITUS TYPE 2 05/03/2010 401.9 HYPE RTENSION, UNSPECIFIED ESSENTIAL 05/03/2010 250.00 ALVIN BETES MELLITUS TYPE 2 05/03/2010 401.9 HYPE RTENSION, UNSPECIFIED ESSENTIAL 05/03/2010 250.00 ALVIN BETES MELLITUS TYPE 2 05/03/2010 401.9 HYPE RTENSION, UNSPECIFIED ESSENTIAL 05/03/2010 250.00 ALVIN BETES MELLITUS TYPE 2 05/03/2010 401.9 HYPE RTENSION, UNSPECIFIED ESSENTIAL 05/03/2010 SIVAKUMAR LAUREN DO 250.00 DIABETES MELLITUS TYPE 2 05/03/2010 SIVAKUMAR LAUREN DO 401.9 HYPERTENSION, UNSPECIFIED ESSENTIAL 05/23/2010 RIOS NUÑEZ MD 789.0 0 ABDOMINAL PAIN UNSPECIFIED SITE 05/23/2010 RIOS NUÑEZ MD 789.0 0 ABDOMINAL PAIN UNSPECIFIED SITE 05/23/2010 RIOS NUÑEZ MD 789.0 0 ABDOMINAL PAIN UNSPECIFIED SITE 05/23/2010 789.00 ABD OMINAL PAIN UNSPECIFIED SITE 05/23/2010 789.00 ABD OMINAL PAIN UNSPECIFIED SITE 05/23/2010 789.00 ABD OMINAL PAIN UNSPECIFIED SITE 05/23/2010 789.00 ABD OMINAL PAIN UNSPECIFIED SITE 05/23/2010 789.00 ABD OMINAL PAIN UNSPECIFIED SITE 05/23/2010 789.00 ABD OMINAL PAIN UNSPECIFIED SITE 05/23/2010 789.00 ABD OMINAL PAIN UNSPECIFIED SITE 05/23/2010 789.00 ABD OMINAL PAIN UNSPECIFIED SITE 05/23/2010 789.00 ABD OMINAL PAIN UNSPECIFIED SITE 05/23/2010 789.00 ABD OMINAL PAIN UNSPECIFIED SITE 05/23/2010 789.00 ABD OMINAL PAIN UNSPECIFIED SITE 05/23/2010 SIVAKUMAR LAUREN DO 789.00 ABDOMINAL PAIN UNSPECIFIED SITE 06/14/2010 RIOS NUÑEZ MD 250.0 2 DIABETES II UNCONTROLLED 06/14/2010 RIOS NUÑEZ MD 716.9 0 ARTHRITIS/ ARTHROPATHY, UNSPECIFIED 06/14/2010 RIOS NUÑEZ MD 250.0 2 DIABETES II UNCONTROLLED 06/14/2010 RIOS NUÑEZ MD 716.9 0 ARTHRITIS/ ARTHROPATHY, UNSPECIFIED 06/14/2010 RIOS NUÑEZ MD 250.0 2 DIABETES II UNCONTROLLED 06/14/2010 RIOS NUÑEZ MD 716.9 0 ARTHRITIS/ ARTHROPATHY, UNSPECIFIED 06/14/2010 250.02 ALVIN BETES II UNCONTROLLED 06/14/2010 716.90 ART HRITIS/ ARTHROPATHY, UNSPECIFIED 06/14/2010 250.02 ALVIN BETES II UNCONTROLLED 06/14/2010 716.90 ART HRITIS/ ARTHROPATHY, UNSPECIFIED 06/14/2010 250.02 ALVIN BETES II UNCONTROLLED 06/14/2010 716.90 ART HRITIS/ ARTHROPATHY, UNSPECIFIED 06/14/2010 250.02 ALVIN BETES II UNCONTROLLED 06/14/2010 716.90 ART HRITIS/ ARTHROPATHY, UNSPECIFIED 06/14/2010 250.02 ALVIN BETES II UNCONTROLLED 06/14/2010 716.90 ART HRITIS/ ARTHROPATHY, UNSPECIFIED 06/14/2010 250.02 ALVIN BETES II UNCONTROLLED 06/14/2010 716.90 ART HRITIS/ ARTHROPATHY, UNSPECIFIED 06/14/2010 250.02 ALVIN BETES II UNCONTROLLED 06/14/2010 716.90 ART HRITIS/ ARTHROPATHY, UNSPECIFIED 06/14/2010 250.02 ALVIN BETES II UNCONTROLLED 06/14/2010 716.90 ART HRITIS/ ARTHROPATHY, UNSPECIFIED 06/14/2010 250.02 ALVIN BETES II UNCONTROLLED 06/14/2010 716.90 ART HRITIS/ ARTHROPATHY, UNSPECIFIED 06/14/2010 250.02 ALVIN BETES II UNCONTROLLED 06/14/2010 716.90 ART HRITIS/ ARTHROPATHY, UNSPECIFIED 06/14/2010 250.02 ALVIN BETES II UNCONTROLLED 06/14/2010 716.90 ART HRITIS/ ARTHROPATHY, UNSPECIFIED 06/14/2010 SIVAKUMAR LAUREN DO 250.02 DIABETES II UNCONTROLLED 06/14/2010 SIVAKUMAR LAUREN DO 716.90 ARTHRITIS/ ARTHROPATHY, UNSPECIFIED 06/16/2010 Ot 836.2 TEAR MENISCUS NEC- CURREN 06/16/2010 Ot 959.7 LOWE R LEG INJURY NOS 06/16/2010 Ot E000.8 OTH ER EXTERNAL CAUSE STATUS 06/16/2010 Ot E849.0 ACC IDENT IN HOME 06/16/2010 Ot E885.9 FAL L FROM SLIPPING, TRIPPING, OR STUMBLI 11/29/2010 JOAQUIN QURESHI, RIOS 466.0 ACUTE BRONCHITIS 11/29/2010 JOAQUIN QURESHI, RIOS 790.6 OTHER ABNORMAL BLOOD CHEMISTRY 11/29/2010 RIOS NUÑEZ MD 466.0 ACUTE BRONCHITIS 11/29/2010 RIOS NUÑEZ MD 790.6 OTHER ABNORMAL BLOOD CHEMISTRY 11/29/2010 RIOS NUÑEZ MD 466.0 ACUTE BRONCHITIS 11/29/2010 JOAQUIN QURESHI, RIOS 790.6 OTHER ABNORMAL BLOOD CHEMISTRY 11/29/2010 466.0 ACUT E BRONCHITIS 11/29/2010 790.6 OTHE R ABNORMAL BLOOD CHEMISTRY 11/29/2010 466.0 ACUT E BRONCHITIS 11/29/2010 790.6 OTHE R ABNORMAL BLOOD CHEMISTRY 11/29/2010 466.0 ACUT E BRONCHITIS 11/29/2010 790.6 OTHE R ABNORMAL BLOOD CHEMISTRY 11/29/2010 466.0 ACUT E BRONCHITIS 11/29/2010 790.6 OTHE R ABNORMAL BLOOD CHEMISTRY 11/29/2010 466.0 ACUT E BRONCHITIS 11/29/2010 790.6 OTHE R ABNORMAL BLOOD CHEMISTRY 11/29/2010 466.0 ACUT E BRONCHITIS 11/29/2010 790.6 OTHE R ABNORMAL BLOOD CHEMISTRY 11/29/2010 466.0 ACUT E BRONCHITIS 11/29/2010 790.6 OTHE R ABNORMAL BLOOD CHEMISTRY 11/29/2010 466.0 ACUT E BRONCHITIS 11/29/2010 790.6 OTHE R ABNORMAL BLOOD CHEMISTRY 11/29/2010 466.0 ACUT E BRONCHITIS 11/29/2010 790.6 OTHE R ABNORMAL BLOOD CHEMISTRY 11/29/2010 466.0 ACUT E BRONCHITIS 11/29/2010 790.6 OTHE R ABNORMAL BLOOD CHEMISTRY 11/29/2010 466.0 ACUT E BRONCHITIS 11/29/2010 790.6 OTHE R ABNORMAL BLOOD CHEMISTRY 11/29/2010 LAUREN DO, SIVAKUMAR K 466.0 ACUTE BRONCHITIS 11/29/2010 LAUREN DO, SIVAKUMAR K 790.6 OTHER ABNORMAL BLOOD CHEMISTRY 02/16/2011 Ot 577.0 ACUT E PANCREATITIS 02/16/2011 Ot 789.01 ABD OMINAL PAIN, RIGHT UPPER QUADRANT 06/07/2011 Ot 250.00 ALVIN B DAILY WO COMPL, TYPE II OR UNSPEC TY 06/07/2011 Ot 577.0 ACUT E PANCREATITIS 06/07/2011 Ot 789.01 ABD OMINAL PAIN, RIGHT UPPER QUADRANT 06/07/2011 Ot V58.67 ELROY G-TERM (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 08/21/2011 Ot 780.2 SYNC OPE AND COLLAPSE 08/21/2011 Ot 789.00 ABD OMINAL PAIN, UNSPECIFIED SITE 02/24/2012 Ot 250.00 ALVIN B DAILY WO COMPL, TYPE II OR UNSPEC TY 02/24/2012 Ot 305.93 BELLA G ABUSE NEC-IN REMISS 02/24/2012 Ot 311 DEPRES SIVE DISORDER NEC 02/24/2012 Ot 397.0 TRIC USPID VALVE DISEASE 02/24/2012 Ot 424.0 MITR AL VALVE DISORDER 02/24/2012 Ot 733.6 TIET ZE'S DISEASE 02/24/[address] PAIN NEC 02/24/2012 Ot V15.82 HIS TORY OF TOBACCO USE 02/24/2012 Ot V17.49 FAM JOSIE HISTORY OF OTHER CARDIOVASCULAR D 02/24/2012 Ot V58.67 ELROY G-TERM (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 02/24/2012 Ot V58.69 OTH MED,LT,CURRENT USE 03/17/2012 Ot 250.92 ALVIN B W UNSPEC COMPL, TYPE II OR UNSPEC T 03/17/2012 Ot 305.00 ALC OHOL ABUSE- UNSPEC 03/17/2012 Ot 311 DEPRES SIVE DISORDER NEC 03/17/2012 Ot 401.9 HYPE RTENSION NOS 03/17/2012 Ot V15.81 HX OF PAST NONCOMPLIANCE 05/15/2012 Ot 250.02 ALVIN B DAILY WO COMPL, TYPE II OR UNSPEC TY 05/15/2012 Ot 401.9 HYPE RTENSION NOS 05/15/[address] PAIN NOS 06/07/2012 Ot 250.00 ALVIN B DAILY WO COMPL, TYPE II OR UNSPEC TY 06/07/2012 Ot 278.01 MOR BID OBESITY 06/07/2012 Ot 401.9 HYPE RTENSION NOS 06/07/2012 Ot 560.1 PARA LYTIC ILEUS 06/07/2012 Ot 577.1 HUB CUTTER BENSON PANCREATITIS 06/07/2012 Ot V58.67 ELROY G-TERM (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 06/07/2012 Ot V85.43 BOD Y MASS INDEX 50.0-59.9, ADULT 06/10/2012 Ot 275.2 DIS MAGNESIUM METABOLISM 06/10/2012 Ot 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 06/10/2012 Ot 789.02 ABD OMINAL PAIN, LEFT UPPER QUADRANT 06/25/2012 Ot 250.00 ALVIN B DAILY WO COMPL, TYPE II OR UNSPEC TY 06/25/2012 Ot 311 DEPRES SIVE DISORDER NEC 06/25/2012 Ot 401.9 HYPE RTENSION NOS 06/25/2012 Ot 965.8 POIS - ANALGES/ANTIPYR NEC 06/25/2012 Ot E950.0 GHANSHYAM CIDE- ANALGESICS 06/25/2012 Ot V12.79 PER HORTENCIA HISTORY OTH SPEC DIGESTIVE SYST 06/25/2012 Ot V58.67 ELROY G-TERM (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 09/12/2012 Ot 787.03 VOM ITING ALONE 09/12/2012 Ot 789.06 ABD OMINAL PAIN, EPIGASTRIC 10/15/2012 RIOS NUÑEZ MD 250.9 2 DIABETES WITH UNSPECIFIED COMPLICATION TYPE II OR UNSPECIFIED TYPE UNCONTROLLED 10/15/2012 RIOS NUÑEZ MD 278.0 1 MORBID OBESITY 10/15/2012 RIOS NUÑEZ MD 295.9 0 UNSPECIFIED TYPE SCHIZOPHRENIA UNSPECIFIED STATE 10/15/2012 RIOS NUÑEZ MD 577.0 ACUTE PANCREATITIS 10/15/2012 RIOS NUÑEZ MD 250.9 2 DIABETES WITH UNSPECIFIED COMPLICATION TYPE II OR UNSPECIFIED TYPE UNCONTROLLED 10/15/2012 RIOS NUÑEZ MD 278.0 1 MORBID OBESITY 10/15/2012 RIOS NUÑEZ MD 295.9 0 UNSPECIFIED TYPE SCHIZOPHRENIA UNSPECIFIED STATE 10/15/2012 RIOS NUÑEZ MD 577.0 ACUTE PANCREATITIS 10/15/2012 RIOS NUÑEZ MD 250.9 2 DIABETES WITH UNSPECIFIED COMPLICATION TYPE II OR UNSPECIFIED TYPE UNCONTROLLED 10/15/2012 RIOS NUÑEZ MD 278.0 1 MORBID OBESITY 10/15/2012 RIOS NUÑEZ MD 295.9 0 UNSPECIFIED TYPE SCHIZOPHRENIA UNSPECIFIED STATE 10/15/2012 RIOS NUÑEZ MD 577.0 ACUTE PANCREATITIS 10/15/2012 250.92 ALVIN BETES WITH UNSPECIFIED COMPLICATION TYPE II OR UNSPECIFIED TYPE UNCONTROLLED 10/15/2012 278.01 MOR BID OBESITY 10/15/2012 295.90 UNS PECIFIED TYPE SCHIZOPHRENIA UNSPECIFIED STATE 10/15/2012 577.0 ACUT E PANCREATITIS 10/15/2012 250.92 ALVIN BETES WITH UNSPECIFIED COMPLICATION TYPE II OR UNSPECIFIED TYPE UNCONTROLLED 10/15/2012 278.01 MOR BID OBESITY 10/15/2012 295.90 UNS PECIFIED TYPE SCHIZOPHRENIA UNSPECIFIED STATE 10/15/2012 577.0 ACUT E PANCREATITIS 10/15/2012 250.92 ALVIN BETES WITH UNSPECIFIED COMPLICATION TYPE II OR UNSPECIFIED TYPE UNCONTROLLED 10/15/2012 278.01 MOR BID OBESITY 10/15/2012 295.90 UNS PECIFIED TYPE SCHIZOPHRENIA UNSPECIFIED STATE 10/15/2012 577.0 ACUT E PANCREATITIS 10/15/2012 250.92 ALVIN BETES WITH UNSPECIFIED COMPLICATION TYPE II OR UNSPECIFIED TYPE UNCONTROLLED 10/15/2012 278.01 MOR BID OBESITY 10/15/2012 295.90 UNS PECIFIED TYPE SCHIZOPHRENIA UNSPECIFIED STATE 10/15/2012 577.0 ACUT E PANCREATITIS 10/15/2012 250.92 ALVIN BETES WITH UNSPECIFIED COMPLICATION TYPE II OR UNSPECIFIED TYPE UNCONTROLLED 10/15/2012 278.01 MOR BID OBESITY 10/15/2012 295.90 UNS PECIFIED TYPE SCHIZOPHRENIA UNSPECIFIED STATE 10/15/2012 577.0 ACUT E PANCREATITIS 10/15/2012 250.92 ALVIN BETES WITH UNSPECIFIED COMPLICATION TYPE II OR UNSPECIFIED TYPE UNCONTROLLED 10/15/2012 278.01 MOR BID OBESITY 10/15/2012 295.90 UNS PECIFIED TYPE SCHIZOPHRENIA UNSPECIFIED STATE 10/15/2012 577.0 ACUT E PANCREATITIS 10/15/2012 250.92 ALVIN BETES WITH UNSPECIFIED COMPLICATION TYPE II OR UNSPECIFIED TYPE UNCONTROLLED 10/15/2012 278.01 MOR BID OBESITY 10/15/2012 295.90 UNS PECIFIED TYPE SCHIZOPHRENIA UNSPECIFIED STATE 10/15/2012 577.0 ACUT E PANCREATITIS 10/15/2012 250.92 ALVIN BETES WITH UNSPECIFIED COMPLICATION TYPE II OR UNSPECIFIED TYPE UNCONTROLLED 10/15/2012 278.01 MOR BID OBESITY 10/15/2012 295.90 UNS PECIFIED TYPE SCHIZOPHRENIA UNSPECIFIED STATE 10/15/2012 577.0 ACUT E PANCREATITIS 10/15/2012 250.92 ALVIN BETES WITH UNSPECIFIED COMPLICATION TYPE II OR UNSPECIFIED TYPE UNCONTROLLED 10/15/2012 278.01 MOR BID OBESITY 10/15/2012 295.90 UNS PECIFIED TYPE SCHIZOPHRENIA UNSPECIFIED STATE 10/15/2012 577.0 ACUT E PANCREATITIS 10/15/2012 250.92 ALVIN BETES WITH UNSPECIFIED COMPLICATION TYPE II OR UNSPECIFIED TYPE UNCONTROLLED 10/15/2012 278.01 MOR BID OBESITY 10/15/2012 295.90 UNS PECIFIED TYPE SCHIZOPHRENIA UNSPECIFIED STATE 10/15/2012 577.0 ACUT E PANCREATITIS 10/15/2012 250.92 ALVIN BETES WITH UNSPECIFIED COMPLICATION TYPE II OR UNSPECIFIED TYPE UNCONTROLLED 10/15/2012 278.01 MOR BID OBESITY 10/15/2012 295.90 UNS PECIFIED TYPE SCHIZOPHRENIA UNSPECIFIED STATE 10/15/2012 577.0 ACUT E PANCREATITIS 10/15/2012 SIVAKUMAR LAUREN DO 250.92 DIABETES WITH UNSPECIFIED COMPLICATION TYPE II OR UNSPECIFIED TYPE UNCONTROLLED 10/15/2012 SIVAKUMAR LAUREN DO 278.01 MORBID OBESITY 10/15/2012 SIVAKUMAR LAUREN DO 295.90 UNSPECIFIED TYPE SCHIZOPHRENIA UNSPECIFIED STATE 10/15/2012 SIVAKUMAR LAUREN DO 577.0 ACUTE PANCREATITIS 11/07/2012 RIOS NUÑEZ MD V67.9 UNSPECIFIED FOLLOW-UP EXAMINATION 11/07/2012 RIOS NUÑEZ MD V67.9 UNSPECIFIED FOLLOW-UP EXAMINATION 11/07/2012 V67.9 UNSP ECIFIED FOLLOW- UP EXAMINATION 11/07/2012 V67.9 UNSP ECIFIED FOLLOW- UP EXAMINATION 11/07/2012 V67.9 UNSP ECIFIED FOLLOW- UP EXAMINATION 11/07/2012 V67.9 UNSP ECIFIED FOLLOW- UP EXAMINATION 11/07/2012 V67.9 UNSP ECIFIED FOLLOW- UP EXAMINATION 11/07/2012 V67.9 UNSP ECIFIED FOLLOW- UP EXAMINATION 11/07/2012 V67.9 UNSP ECIFIED FOLLOW- UP EXAMINATION 11/07/2012 V67.9 UNSP ECIFIED FOLLOW- UP EXAMINATION 11/07/2012 V67.9 UNSP ECIFIED FOLLOW- UP EXAMINATION 11/07/2012 V67.9 UNSP ECIFIED FOLLOW- UP EXAMINATION 11/07/2012 V67.9 UNSP ECIFIED FOLLOW- UP EXAMINATION 11/07/2012 SIVAKUMAR LAUREN DO V67.9 UNSPECIFIED FOLLOW-UP EXAMINATION 12/24/2012 V65.3 COUN SELING- OBESITY (DIET) 12/24/2012 V65.3 COUN SELING- OBESITY (DIET) 12/24/2012 V65.3 COUN SELING- OBESITY (DIET) 12/24/2012 V65.3 COUN SELING- OBESITY (DIET) 12/24/2012 V65.3 COUN SELING- OBESITY (DIET) 12/24/2012 V65.3 COUN SELING- OBESITY (DIET) 12/24/2012 V65.3 COUN SELING- OBESITY (DIET) 12/24/2012 V65.3 COUN SELING- OBESITY (DIET) 12/24/2012 V65.3 COUN SELING- OBESITY (DIET) 12/24/2012 V65.3 COUN SELING- OBESITY (DIET) 12/24/2012 V65.3 COUN SELING- OBESITY (DIET) 12/24/2012 SIVAKUMAR LAUREN DO V65.3 COUNSELING- OBESITY (DIET) 12/25/2012 789.06 abd ominal pain in the central upper belly (epigastric) 12/25/2012 789.06 abd ominal pain in the central upper belly (epigastric) 12/25/2012 789.06 abd ominal pain in the central upper belly (epigastric) 12/25/2012 789.06 abd ominal pain in the central upper belly (epigastric) 12/25/2012 789.06 abd ominal pain in the central upper belly (epigastric) 12/25/2012 789.06 abd ominal pain in the central upper belly (epigastric) 12/25/2012 789.06 abd ominal pain in the central upper belly (epigastric) 12/25/2012 789.06 abd ominal pain in the central upper belly (epigastric) 12/25/2012 789.06 abd ominal pain in the central upper belly (epigastric) 12/25/2012 789.06 abd ominal pain in the central upper belly (epigastric) 12/25/2012 789.06 abd ominal pain in the central upper belly (epigastric) 12/25/2012 SIVAKUMAR LAUREN DO 789.06 abdominal pain in the central upper belly (epigastric) 12/26/2012 311 DEPRES SIVE DISORDER NOT ELSEWHERE CLASSIFIED 12/26/2012 311 DEPRES SIVE DISORDER NOT ELSEWHERE CLASSIFIED 12/26/2012 311 DEPRES SIVE DISORDER NOT ELSEWHERE CLASSIFIED 12/26/2012 311 DEPRES SIVE DISORDER NOT ELSEWHERE CLASSIFIED 12/26/2012 311 DEPRES SIVE DISORDER NOT ELSEWHERE CLASSIFIED 12/26/2012 311 DEPRES SIVE DISORDER NOT ELSEWHERE CLASSIFIED 12/26/2012 311 DEPRES SIVE DISORDER NOT ELSEWHERE CLASSIFIED 12/26/2012 311 DEPRES SIVE DISORDER NOT ELSEWHERE CLASSIFIED 12/26/2012 311 DEPRES SIVE DISORDER NOT ELSEWHERE CLASSIFIED 12/26/2012 311 DEPRES SIVE DISORDER NOT ELSEWHERE CLASSIFIED 12/26/2012 SIVAKUMAR LAUREN DO 311 DEPRESSIVE DISORDER NOT ELSEWHERE CLASSIFIED 12/31/2012 308.3 OTHE R ACUTE REACTIONS TO STRESS 12/31/2012 308.3 OTHE R ACUTE REACTIONS TO STRESS 12/31/2012 308.3 OTHE R ACUTE REACTIONS TO STRESS 12/31/2012 308.3 OTHE R ACUTE REACTIONS TO STRESS 12/31/2012 308.3 OTHE R ACUTE REACTIONS TO STRESS 12/31/2012 308.3 OTHE R ACUTE REACTIONS TO STRESS 12/31/2012 308.3 OTHE R ACUTE REACTIONS TO STRESS 12/31/2012 308.3 OTHE R ACUTE REACTIONS TO STRESS 12/31/2012 308.3 OTHE R ACUTE REACTIONS TO STRESS 12/31/2012 SIVAKUMAR LAUREN DO 308.3 OTHER ACUTE REACTIONS TO STRESS 01/16/2013 717.7 PO DROMALACIA OF PATELLA 01/16/2013 717.7 PO DROMALACIA OF P[place]LLA 01/16/2013 717.7 PO DROMALACIA OF P[place]LLA 01/16/2013 717.7 PO DROMALACIA OF P[place]LLA 01/16/2013 717.7 PO DROMALACIA OF P[place]LLA 01/16/2013 717.7 PO DROMALACIA OF [place]LLA 01/16/2013 717.7 PO DROMALACIA OF P[place]LLA 01/16/2013 SIVAKUMAR LAUREN DO 717.7 CHONDROMALACIA OF [place]LL[place] 01/22/2013 ANGEL NORMAN MD Ot 250. 00 DIAB DAILY WO COMPL, TYPE II OR UNSPEC TY 01/22/2013 ANGEL NORMAN MD Ot 311 DEPRESSIVE DISORDER NEC 01/22/2013 ANGEL NORMAN MD Ot 401. 9 HYPERTENSION NOS 01/22/2013 ANGEL NORMAN MD Ot 530. 11 REFLUX ESOPHAGITIS 01/22/2013 ANGEL NORMAN MD Ot 577. 1 CHRONIC PANCREATITIS 01/22/2013 ANGEL NORMAN MD Ot 786. 50 CHEST PAIN NOS 01/22/2013 ANGEL NORMAN MD Ot V15. 81 HX OF PAST NONCOMPLIANCE 02/11/2013 SHANE LEE MD Ot 250.00 DIAB DAILY WO COMPL, TYPE II OR UNSPEC TY 02/11/2013 SHANE LEE MD Ot 298.9 PSYCHOSIS NOS 02/11/2013 SHANE LEE MD Ot V58.67 LONG-TERM (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 02/11/2013 SHANE LEE MD Ot V58.69 OTH MED,LT,CURRENT USE 03/06/2013 401.1 ELIAN GN ESSENTIAL HYPERTENSION 03/06/2013 401.1 ELIAN GN ESSENTIAL HYPERTENSION 03/06/2013 401.1 ELIAN GN ESSENTIAL HYPERTENSION 03/06/2013 LAUREN DO, SIVAKUMAR K 401.1 BENIGN ESSENTIAL HYPERTENSION 12/06/2013 LEA ALDANA MD Ot 250.02 DIAB DAILY WO COMPL, TYPE II OR UNSPEC TY 12/06/2013 LEA ALDANA MD Ot 789.00 ABDOMINAL PAIN, UNSPECIFIED SITE 03/14/2014 EMILY WOO MD Ot 272. 0 PURE HYPERCHOLESTEROLEM 03/14/2014 EMILY WOO MD Ot 278. 00 OBESITY, NOS 03/14/2014 EMILY WOO MD Ot 295. 90 SCHIZOPHRENIA NOS-UNSPEC 03/14/2014 EMILY WOO MD Ot 311 DEPRESSIVE DISORDER NEC 03/14/2014 EMILY WOO MD Ot 401. 9 HYPERTENSION NOS 03/14/2014 EMILY WOO MD Ot 577. 0 ACUTE PANCREATITIS 03/14/2014 EMILY WOO MD Ot 577. 1 CHRONIC PANCREATITIS 03/14/2014 EMILY WOO MD Ot 786. 50 CHEST PAIN NOS 03/14/2014 EMILY WOO MD Ot V58. 66 LONG-TERM (CURRENT) USE OF ASPIRIN 03/14/2014 EMILY WOO MD Ot V58. 67 LONG-TERM (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 03/14/2014 EMILY WOO MD Ot V58. 69 OTH MED,LT,CURRENT USE 03/14/2014 EMILY WOO MD Ot V85. 43 BODY MASS INDEX 50.0-59.9, ADULT 10/28/2014 Ot 250.00 ALVIN B DAILY WO COMPL, TYPE II OR UNSPEC TY 10/28/2014 Ot 923.03 CON TUSION OF UPPER ARM 10/28/2014 Ot 959.2 SHLD R/UPPER ARM INJ NOS 10/28/2014 Ot E000.8 OTH ER EXTERNAL CAUSE STATUS 10/28/2014 Ot E885.9 FAL L FROM SLIPPING, TRIPPING, OR STUMBLI 10/28/2014 Ot V15.81 HX OF PAST NONCOMPLIANCE 10/28/2014 Ot V58.67 ELROY G-TERM (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 10/29/2014 DONAL TAYLOR MD Ot 571.8 10/29/2014 BRANDON QURESHI, DONAL Payne Ot 789.1 10/29/2014 DONAL TAYLOR MD Ot 789.2 12/27/2014 GILBERT GALARZA Ot 388.70 OTALGIA NOS 12/27/2014 GILBERT GALARZA Ot 910.0 ABRASION HEAD 12/27/2014 GILBERT GALARZA Ot E000.8 OTHER EXTERNAL CAUSE STATUS 12/27/2014 GILBERT GALARZA Ot E915 FB ENTERING OT ORIFICE 01/14/2015 DONAL TAYLOR MD Ot 571.8 01/14/2015 DONAL TAYLOR MD Ot 789.1 01/14/2015 DONAL TAYLOR MD Ot 789.2 01/14/2015 DONAL TAYLOR MD Ot 571.8 01/14/2015 DONAL TAYLOR MD Ot 789.1 01/14/2015 DONAL TAYLOR MD Ot 789.2 01/17/2015 BOUCHRA MEDRANO MD Ot 250. 02 DIAB DAILY WO COMPL, TYPE II OR UNSPEC TY 01/17/2015 BOUCHRA MEDRANO MD Ot 272. 0 PURE HYPERCHOLESTEROLEM 01/17/2015 BOUCHRA MEDRANO MD Ot 401. 9 HYPERTENSION NOS 01/17/2015 BOUCHRA MEDRANO MD Ot 493. 90 ASTHMA, UNSPECIFIED 01/17/2015 BOUCHRA MEDRANO MD Ot 799. 02 HYPOXEMIA 01/17/2015 BOUCHRA MEDRANO MD Ot V15. 82 HISTORY OF TOBACCO USE 01/17/2015 BOUCHRA MEDRANO MD Ot V58. 67 LONG-TERM (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 01/23/2015 BOUCHRA MEDRANO MD Ot 250. 02 01/23/2015 BOUCHRA MEDRANO MD Ot 272. 0 01/23/2015 BOUCHRA MEDRANO MD Ot 401. 9 01/23/2015 BOUCHRA MEDRANO MD Ot 493. 90 01/23/2015 BOUCHRA MEDRANO MD Ot 799. 02 01/23/2015 MARCELA QURESHI, BOUCHRA Gibson Ot V15. 82 01/23/2015 BOUCHRA MEDRANO MD Ot V58. 67 01/23/2015 BOUCHRA MEDRANO MD Ot 250. 02 01/23/2015 BOUCHRA MEDRANO MD Ot 272. 0 01/23/2015 BOUCHRA MEDRANO MD Ot 401. 9 01/23/2015 BOUCHRA MEDRANO MD Ot 493. 90 01/23/2015 BOUCHRA MEDRANO MD Ot 799. 02 01/23/2015 BOUCHRA MEDRANO MD Ot V15. 82 01/23/2015 BOUCHRA MEDRANO MD Ot V58. 67 03/03/2015 BRANDON QURESHI, DONAL Payne Ot 571.8 [...] WEAKNESS 04/12/2016 OSMAN MOSLEY MD Ot Z79.4 WALKING DRAGLINE OILER (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 04/12/2016 OSMAN MOSLEY MD T Ot Z79.899 OTHER WALKING DRAGLINE OILER (CURRENT) DRUG THERAPY 04/12/2016 BRANDON QURESHI, DONAL Payne Ot 571.8 CHRONIC LIVER DIS NEC 04/12/2016 BRANDON QURESHI, DONAL Payne Ot 789.1 HEPATOMEGALY 04/12/2016 BRANDON QURESHI, DONAL Payne Ot 789.2 SPLENOMEGALY 04/13/2016 OSMAN MOSLEY MD [...] ANESTHESIA OF SKIN 04/13/2016 OSMAN MOSLEY MD T Ot R29.810 FACIAL WEAKNESS 04/13/2016 OSMAN MOSLEY MD T Ot Z79.4 ASSISTED (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 04/13/2016 OSMAN MOSLEY MD Ot Z79.899 OTHER ASSISTED (CURRENT) DRUG THERAPY 04/29/2016 OSMAN MOSLEY MD Ot E11.65 TYPE 2 DIABETES MELLITUS WITH HYPERGLYCE 04/29/2016 OSMAN MOSLEY MD Ot F15.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 ABUSE, UNCOMPLICATED 04/29/2016 OSMAN MOSLEY MD Ot F20.9 SCHIZOPHRENIA, UNSPECIFIED 04/29/2016 OSMAN MOSLEY MD Ot H66.92 OTITIS MEDIA, UNSPECIFIED, LEFT EAR 04/29/2016 OSMAN MOSLEY MD T Ot M54.2 CERVICALGIA 04/29/2016 OSMAN MOSLEY MD T Ot R07.89 OTHER CHEST PAIN 04/29/2016 MELANY QURESHI, OSMAN Quintanilla Ot R20.0 ANESTHESIA OF SKIN 04/29/2016 OSMAN MOSLEY MD Ot R29.810 FACIAL WEAKNESS 04/29/2016 OSMAN MOSLEY MD Ot Z79.4 WALKING DRAGLINE OILER (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 04/29/2016 OSMAN MOSLEY MD Ot Z79.899 OTHER WALKING DRAGLINE OILER (CURRENT) DRUG THERAPY 10/08/2016 BRANDON QURESHI, DONAL Payne Ot 571.8 CHRONIC LIVER DIS NEC 10/08/2016 [...] DO Ot I25.10 ATHSCL HEART DISEASE OF [place] CORONARY 10/09/2016 ROBIN ROGEL DO Ot J44.1 CHRONIC OBSTRUCTIVE PULMONARY DISEASE W 10/09/2016 ROBIN ROGEL DO Ot J45.90 2 UNSPECIFIED ASTHMA WITH STATUS ASTHMATIC 10/09/2016 ROBIN ROGEL DO Ot K21.9 GASTRO-ESOPHAGEAL REFLUX DISEASE WITHOUT 10/09/2016 ROBIN ROGEL DO Ot Z79.4 WALKING DRAGLINE OILER (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 10/09/2016 ROBIN ROGEL DO Ot Z87.89 1 PERSONAL HISTORY OF NICOTINE DEPENDENCE 11/04/2016 EDUIN FLOREZ APRN Ot G47.33 OBSTRUCTIVE SLEEP APNEA (ADULT) (PEDIATR 11/04/2016 EDUIN FLOREZ APRN Ot G47.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 ALVEOL 11/06/2016 EDUIN FLOREZ APRN Ot G47.33 OBSTRUCTIVE SLEEP APNEA (ADULT) (PEDIATR 11/06/2016 EDUIN FLOREZ SENIOR ACCOUNT DIRECTOR Ot G47.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 ALVEOL 11/06/2016 EDUIN FLOREZ SENIOR ACCOUNT DIRECTOR Ot G47.33 OBSTRUCTIVE SLEEP APNEA (ADULT) (PEDIATR 11/06/2016 EDUIN FLOREZ SENIOR ACCOUNT DIRECTOR Ot G47.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 ALVEOL 11/22/2016 EDUIN FLOREZ SENIOR ACCOUNT DIRECTOR Ot J45.909 UNSPECIFIED ASTHMA, UNCOMPLICATED 11/22/2016 EDUIN FLOREZ SENIOR ACCOUNT DIRECTOR Ot R06.02 SHORTNESS OF BREATH 09/24/2017 ABIGAIL LACY APRN Ot E11.65 TYPE 2 DIABETES MELLITUS WITH HYPERGLYCE 09/24/2017 ABIGAIL LACY APRN Ot E78.00 PURE HYPERCHOLESTEROLEMIA, UNSPECIFIED 09/24/2017 ABIGAIL LACY APRN Ot F20 .9 SCHIZOPHRENIA, UNSPECIFIED 09/24/2017 ABIGAIL LACY APRN Ot F32 .9 MAJOR DEPRESSIVE DISORDER, SINGLE EPISOD 09/24/2017 ABIGAIL LACY APRN Ot I10 ESSENTIAL (PRIMARY) HYPERTENSION 09/24/2017 ABIGAIL LACY APRN Ot K21 .9 GASTRO-ESOPHAGEAL REFLUX DISEASE WITHOUT 09/24/2017 ABIGAIL LACY APRN Ot K52 .9 NONINFECTIVE GASTROENTERITIS AND COLITIS 09/24/2017 ABIGAIL LACY APRN Ot M17 .0 BILATERAL PRIMARY OSTEOARTHRITIS OF KNEE 09/24/2017 ABIGAIL LACY APRN Ot R10.11 RIGHT UPPER QUADRANT PAIN 09/24/2017 ABIGAIL LACY APRN Ot Z79 .4 ASSISTED (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 09/24/2017 ABIGAIL LACY APRN Ot Z79.82 WALKING DRAGLINE OILER (CURRENT) USE OF ASPIRIN 09/24/2017 ABIGAIL LACY APRN Ot Z87.19 PERSONAL HISTORY OF OTHER DISEASES OF TH 09/24/2017 ABIGAIL LACY APRN Ot Z87.891 PERSONAL HISTORY OF NICOTINE DEPENDENCE 09/24/2017 ABIGAIL LACY APRN Ot Z90.49 ACQUIRED ABSENCE OF OTHER SPECIFIED PART 09/26/2017 ABIGAIL LACY APRN Ot E11.65 TYPE 2 DIABETES MELLITUS WITH HYPERGLYCE 09/26/2017 ABIGAIL LACY APRN Ot E78.00 PURE HYPERCHOLESTEROLEMIA, UNSPECIFIED 09/26/2017 ABIGAIL LACY APRN Ot F20 .9 SCHIZOPHRENIA, UNSPECIFIED 09/26/2017 ABIGAIL LACY APRN Ot F32 .9 MAJOR DEPRESSIVE DISORDER, SINGLE EPISOD 09/26/2017 ABIGAIL LACY APRN Ot I10 ESSENTIAL (PRIMARY) HYPERTENSION 09/26/2017 ABIGAIL LACY APRN Ot K21 .9 GASTRO-ESOPHAGEAL REFLUX DISEASE WITHOUT 09/26/2017 ABIGAIL LACY APRN Ot K52 .9 NONINFECTIVE GASTROENTERITIS AND COLITIS 09/26/2017 ABIGAIL LACY APRN Ot M17 .0 BILATERAL PRIMARY OSTEOARTHRITIS OF KNEE 09/26/2017 ABIGAIL LACY APRN Ot R10.11 RIGHT UPPER QUADRANT PAIN 09/26/2017 ABIGAIL LACY APRN Ot Z79 .4 WALKING DRAGLINE OILER (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 09/26/2017 ABIGAIL LACY APRN Ot Z79.82 WALKING DRAGLINE OILER (CURRENT) USE OF ASPIRIN 09/26/2017 ABIGAIL LACY APRN Ot Z87.19 PERSONAL HISTORY OF OTHER DISEASES OF TH 09/26/2017 ABIGAIL LACY APRN Ot Z87.891 PERSONAL HISTORY OF NICOTINE DEPENDENCE 09/26/2017 ABIGAIL LACY APRN Ot Z90.49 ACQUIRED ABSENCE OF OTHER SPECIFIED PART 10/06/2017 MELANY QURESHI, OSMAN Quintanilla Ot B37.49 OTHER UROGENITAL CANDIDIASIS 10/06/2017 MELANY QURESHI, OSMAN Quintanilla Ot E11.65 TYPE 2 DIABETES MELLITUS WITH HYPERGLYCE 10/06/2017 OSMAN MOSLEY MD Ot E66.01 MORBID (SEVERE) OBESITY DUE TO EXCESS CA 10/06/2017 MELANY QURESHI, OSMAN Quintanilla Ot E78.00 PURE HYPERCHOLESTEROLEMIA, UNSPECIFIED 10/06/2017 OSMAN MOSLEY MD Ot F20.9 SCHIZOPHRENIA, UNSPECIFIED 10/06/2017 OSMAN MOSLEY MD Ot F32.9 MAJOR DEPRESSIVE DISORDER, SINGLE EPISOD 10/06/2017 OSMAN MOSLEY MD Ot I10 ESSENTIAL (PRIMARY) HYPERTENSION 10/06/2017 OSMAN MOSLEY MD Ot K21.9 GASTRO-ESOPHAGEAL REFLUX DISEASE WITHOUT 10/06/2017 OSMAN MOSLEY MD Ot K92.1 MELENA 10/06/2017 OSMAN MOSLEY MD Ot R19.5 OTHER FECAL ABNORMALITIES 10/06/2017 OSMAN MOSLEY MD, Ot Z79.4 ASSISTED (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 10/06/2017 OSMAN MOSLEY MD Ot Z79.82 ASSISTED (CURRENT) USE OF ASPIRIN 10/06/2017 OSMAN MOSLEY MD Ot Z80.42 FAMILY HISTORY OF MALIGNANT NEOPLASM OF 10/06/2017 OSMAN MOSLEY MD, Ot Z82.49 FAMILY HX OF ISCHEM HEART DIS AND OTH DI 10/06/2017 OSMAN MOSLEY MD, Ot Z87.19 PERSONAL HISTORY OF OTHER DISEASES OF TH 10/06/2017 OSMAN MOSLEY MD, Ot Z87.891 PERSONAL HISTORY OF NICOTINE DEPENDENCE 10/06/2017 OSMAN MOSLEY MD Ot Z90.89 ACQUIRED ABSENCE OF OTHER ORGANS 10/09/2017 OSMAN MOSLEY MD, Ot B37.49 OTHER UROGENITAL CANDIDIASIS 10/09/2017 OSMAN MOSLEY MD, Ot E11.65 TYPE 2 DIABETES MELLITUS WITH HYPERGLYCE 10/09/2017 OSMAN MOSLEY MD Ot E66.01 MORBID (SEVERE) OBESITY DUE TO EXCESS CA 10/09/2017 OSMAN MOSLEY MD Ot E78.00 PURE HYPERCHOLESTEROLEMIA, UNSPECIFIED 10/09/2017 OSMAN MOSLEY MD Ot F20.9 SCHIZOPHRENIA, UNSPECIFIED 10/09/2017 OSMAN MOSLEY MD, Ot F32.9 MAJOR DEPRESSIVE DISORDER, SINGLE EPISOD 10/09/2017 OSMAN MOSLEY MD Ot I10 ESSENTIAL (PRIMARY) HYPERTENSION 10/09/2017 OSMAN MOSLEY MD, Ot K21.9 GASTRO-ESOPHAGEAL REFLUX DISEASE WITHOUT 10/09/2017 OSMAN MOSLEY MD Ot K92.1 MELENA 10/09/2017 OSMAN MOSLEY MD, Ot R19.5 OTHER FECAL ABNORMALITIES 10/09/2017 OSMAN MOSLEY MD Ot Z79.4 WALKING DRAGLINE OILER (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 10/09/2017 OSMAN MOSLEY MD, Ot Z79.82 WALKING DRAGLINE OILER (CURRENT) USE OF ASPIRIN 10/09/2017 OSMAN MOSLEY [...] DUE TO EXCESS CA 10/10/2017 SHANE LEE MD Ot E78.00 PURE HYPERCHOLESTEROLEMIA, UNSPECIFIED 10/10/2017 SHANE LEE MD Ot F15.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 ABUSE, UNCOMPLICATED 10/10/2017 SHANE LEE MD Ot F20.9 SCHIZOPHRENIA, UNSPECIFIED 10/10/2017 SHANE LEE MD, Ot F32.9 MAJOR DEPRESSIVE DISORDER, SINGLE EPISOD 10/10/2017 SHANE LEE MD Ot I10 ESSENTIAL (PRIMARY) HYPERTENSION 10/10/2017 SHANE LEE MD Ot K21.9 GASTRO-ESOPHAGEAL REFLUX DISEASE WITHOUT 10/10/2017 SHANE LEE MD Ot K31.84 GASTROPARESIS 10/10/2017 SHANE LEE MD Ot R10.13 EPIGASTRIC PAIN 10/10/2017 SHANE LEE MD, Ot Z68.43 BODY MASS INDEX (BMI) 50-59.9 , ADULT 10/10/2017 SHANE LEE MD, Ot Z79.4 WALKING DRAGLINE OILER (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 10/10/2017 SHANE LEE MD Ot Z79.52 ASSISTED (CURRENT) USE OF SYSTEMIC STER 10/10/2017 SHANE LEE MD, Ot Z79.82 WALKING DRAGLINE OILER (CURRENT) USE OF ASPIRIN 10/10/2017 SHANE LEE MD Ot Z82.49 FAMILY HX OF ISCHEM HEART DIS AND OTH DI 10/10/2017 SHANE LEE MD Ot Z85.46 PERSONAL HISTORY OF MALIGNANT NEOPLASM O 10/10/2017 SHANE LEE MD Ot Z87.19 PERSONAL HISTORY OF OTHER DISEASES OF TH 10/10/2017 SHANE LEE MD Ot Z87.891 PERSONAL HISTORY [...] Ot F20.9 SCHIZOPHRENIA, UNSPECIFIED 10/12/2017 SHANE LEE MD Ot F32.9 MAJOR DEPRESSIVE DISORDER, SINGLE EPISOD 10/12/2017 SHANE LEE MD Ot I10 ESSENTIAL (PRIMARY) HYPERTENSION 10/12/2017 SHANE LEE MD Ot K21.9 GASTRO-ESOPHAGEAL REFLUX DISEASE WITHOUT 10/12/2017 SHANE LEE MD Ot K31.84 GASTROPARESIS 10/12/2017 SHANE LEE MD Ot R10.13 EPIGASTRIC PAIN 10/12/2017 SHANE LEE MD Ot Z68.43 BODY MASS INDEX (BMI) 50-59.9 , ADULT 10/12/2017 SHANE LEE MD Ot Z79.4 WALKING DRAGLINE OILER (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 10/12/2017 SHANE LEE MD Ot Z79.52 WALKING DRAGLINE OILER (CURRENT) USE OF SYSTEMIC STER 10/12/2017 SHANE LEE MD Ot Z79.82 ASSISTED (CURRENT) USE OF ASPIRIN 10/12/2017 SHANE LEE MD Ot Z82.49 FAMILY HX OF ISCHEM HEART DIS AND OTH DI 10/12/2017 SHANE LEE MD, Ot Z85.46 PERSONAL HISTORY OF MALIGNANT NEOPLASM O 10/12/2017 SAHNE LEE MD, Ot Z87.19 PERSONAL HISTORY OF OTHER DISEASES OF TH 10/12/2017 SHANE LEE MD Ot Z87.891 PERSONAL HISTORY OF NICOTINE DEPENDENCE 10/12/2017 SHANE LEE MD Ot Z90.89 ACQUIRED ABSENCE OF OTHER ORGANS 10/12/2017 OSCAR MIKE DO Ot K92. 1 MELENA 10/12/2017 OSCAR MIKE DO Ot R10. 13 EPIGASTRIC PAIN 10/12/2017 OSCAR MIKE DO, Ot Z01.818 ENCOUNTER FOR OTHER PREPROCEDURAL EXAMIN 10/15/2017 OSCAR MIKE DO, Ot K92. 1 MELENA 10/15/2017 OSCAR MIKE DO, Ot R10. 13 EPIGASTRIC PAIN 10/15/2017 OSCAR MIKE DO, Ot Z01.818 ENCOUNTER FOR OTHER PREPROCEDURAL EXAMIN 10/17/2017 OSCAR MIKE DO Ot E11. 43 TYPE 2 DIABETES W DIABETIC AUTONOMIC (PO 10/17/2017 OSCAR MIKE DO Ot E66. 01 MORBID (SEVERE) OBESITY DUE TO EXCESS CA 10/17/2017 OSCAR MIKE DO Ot F15. 90 OTHER STIMULANT USE, UNSPECIFIED, UNCOMP 10/17/2017 OSCAR MIKE DO Ot G47. 33 OBSTRUCTIVE SLEEP APNEA (ADULT) (PEDIATR 10/17/2017 OSCAR MIKE DO Ot I10 ESSENTIAL (PRIMARY) HYPERTENSION 10/17/2017 OSCAR MIKE DO Ot K92. 1 MELENA 10/17/2017 OSCAR MIKE DO, Ot R10. 13 EPIGASTRIC PAIN 10/17/2017 OSCAR MIKE DO Ot Z53. 8 PROCEDURE AND TREATMENT NOT CARRIED OUT 10/17/2017 OSCAR MIKE DO Ot Z68. 43 BODY MASS INDEX (BMI) 50-59.9 , ADULT 10/17/2017 OSCAR MIKE DO Ot Z79. 4 ASSISTED (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 11/06/2017 OSCAR MIKE DO Ot K92. 1 MELENA 11/06/2017 OSCAR MIKE DO, Ot R10. 13 EPIGASTRIC PAIN 11/06/2017 OSCAR MIKE DO Ot Z01.818 ENCOUNTER FOR OTHER PREPROCEDURAL EXAMIN 11/07/2017 OSCAR MIKE DO Ot E11. 43 TYPE 2 DIABETES W DIABETIC AUTONOMIC (PO 11/07/2017 OSCAR MIKE DO Ot E66. 01 MORBID (SEVERE) OBESITY DUE TO EXCESS CA 11/07/2017 OSCAR MIKE DO Ot F15. 90 OTHER STIMULANT USE, UNSPECIFIED, UNCOMP 11/07/2017 OSCAR MIKE DO Ot G47. 33 OBSTRUCTIVE SLEEP APNEA (ADULT) (PEDIATR 11/07/2017 OSCAR MIKE DO Ot I10 ESSENTIAL (PRIMARY) HYPERTENSION 11/07/2017 OSCAR MIKE DO Ot K92. 1 MELENA 11/07/2017 OSCAR MIKE DO Ot R10. 13 EPIGASTRIC PAIN 11/07/2017 OSCAR MIKE DO Ot Z53. 8 PROCEDURE AND TREATMENT NOT CARRIED OUT 11/07/2017 OSCAR MIKE DO Ot Z68. 43 BODY MASS INDEX (BMI) 50-59.9 , ADULT 11/07/2017 OSCAR MIKE DO Ot Z79. 4 ASSISTED (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 11/07/2017 OSCAR MIKE DO Ot K92. 1 MELENA 11/07/2017 OSCAR MIKE DO Ot R10. 13 EPIGASTRIC PAIN 11/07/2017 OSCAR MIKE DO Ot Z01.818 ENCOUNTER FOR OTHER PREPROCEDURAL EXAMIN 12/06/2017 OSCAR MIKE DO Ot E11. 43 TYPE 2 DIABETES W DIABETIC AUTONOMIC (PO 12/06/2017 OSCAR MIKE DO Ot E66. 01 MORBID (SEVERE) OBESITY DUE TO EXCESS CA 12/06/2017 OSCAR MIKE DO Ot F15. 90 OTHER STIMULANT USE, UNSPECIFIED, UNCOMP 12/06/2017 OSCAR MIKE DO Ot G47. 33 OBSTRUCTIVE SLEEP APNEA (ADULT) (PEDIATR 12/06/2017 OSCAR MIKE DO Ot I10 ESSENTIAL (PRIMARY) HYPERTENSION 12/06/2017 OSCAR MIKE DO Ot K92. 1 MELENA 12/06/2017 OSCAR MIKE DO Ot R10. 13 EPIGASTRIC PAIN 12/06/2017 OSCAR MIKE DO Ot Z53. 8 PROCEDURE AND TREATMENT NOT CARRIED OUT 12/06/2017 OSCAR MIKE DO Ot Z68. 43 BODY MASS INDEX (BMI) 50-59.9 , ADULT 12/06/2017 OSCAR MIKE DO Ot Z79. 4 ASSISTED (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 01/08/2018 GILBERT GALARZA Ot E11.65 TYPE 2 DIABETES MELLITUS WITH HYPERGLYCE 01/08/2018 GILBERT GALARZA Ot F15.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 ABUSE, UNCOMPLICATED 01/08/2018 GILBERT GALARZA Ot F20.9 SCHIZOPHRENIA, UNSPECIFIED 01/08/2018 GILBERT GALARZA Ot F32.9 MAJOR DEPRESSIVE DISORDER, SINGLE EPISOD 01/08/2018 GILBERT GALARZA Ot F41.9 ANXIETY DISORDER, UNSPECIFIED 01/08/2018 GILBERT GALARZA Ot I 10 ESSENTIAL (PRIMARY) HYPERTENSION 01/08/2018 GILBERT GALARZA Ot K21.9 GASTRO-ESOPHAGEAL REFLUX DISEASE WITHOUT 01/08/2018 GILBERT GALARZA Ot M71.20 SYNOVIAL CYST OF POPLITEAL SPACE [CASE] 01/08/2018 GILBERT GALARZA Ot R06.02 SHORTNESS OF BREATH 01/08/2018 GILBERT GALARZA Ot R79.9 ABNORMAL FINDING OF BLOOD CHEMISTRY, UNS 01/08/2018 GILBERT GALARZA Ot Z79.4 WALKING DRAGLINE OILER (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 01/08/2018 GILBERT GALARZA Ot Z79.82 WALKING DRAGLINE OILER (CURRENT) USE OF ASPIRIN 01/08/2018 GILBERT GALARZA Ot Z87.891 PERSONAL HISTORY OF NICOTINE DEPENDENCE 01/08/2018 GILBERT GALARZA Ot Z90.49 ACQUIRED ABSENCE OF OTHER SPECIFIED PART 01/10/2018 GILBERT GALARZA Ot E11.65 TYPE 2 DIABETES MELLITUS WITH HYPERGLYCE 01/10/2018 GILBERT GALARZA Ot F15.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 ABUSE, UNCOMPLICATED 01/10/2018 GILBERT GALARZA Ot F20.9 SCHIZOPHRENIA, UNSPECIFIED 01/10/2018 GILBERT GALARZA Ot F32.9 MAJOR DEPRESSIVE DISORDER, SINGLE EPISOD 01/10/2018 GILBERT GALARZA Ot F41.9 ANXIETY DISORDER, UNSPECIFIED 01/10/2018 GILBERT GALARZA Ot I 10 ESSENTIAL (PRIMARY) HYPERTENSION 01/10/2018 GLIBERT GALARZA Ot K21.9 GASTRO-ESOPHAGEAL REFLUX DISEASE WITHOUT 01/10/2018 GILBERT GALARZA Ot M71.20 SYNOVIAL CYST OF POPLITEAL SPACE [CASE] 01/10/2018 GILBERT GALARZA Ot R06.02 SHORTNESS OF BREATH 01/10/2018 GILBERT GALARZA Ot R79.9 ABNORMAL FINDING OF BLOOD CHEMISTRY, UNS 01/10/2018 GILBERT GALARZA Ot Z79.4 WALKING DRAGLINE OILER (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 01/10/2018 GILBERT GALAZRA Ot Z79.82 WALKING DRAGLINE OILER (CURRENT) USE OF ASPIRIN 01/10/2018 GILBERT GALARZA Ot Z87.891 PERSONAL HISTORY OF NICOTINE DEPENDENCE 01/10/2018 GILBERT GALARZA Ot Z90.49 ACQUIRED ABSENCE OF OTHER SPECIFIED PART 07/10/2018 Abigail Lacy 535.00 ACUTE GASTRITIS, WITHOUT MENTION OF HEMORRHAGE 07/10/2018 Abigail Lacy K29.00 ACUTE GASTRITIS WITHOUT BLEEDING 08/28/2018 Abigail Lacy 599.70 HEMATURIA, UNSPECIFIED 08/28/2018 Abigail Lacy 788.1 DYSURIA 08/28/2018 Abigail Lacy R30.0 DYSURIA 08/28/2018 Abigail Lacy R31.9 HEMATURIA, UNSPECIFIED 11/05/2018 Chris Fagan W 466.0 ACUTE BRONCHITIS 11/05/2018 Chris Fagan J20.0 ACUTE BRONCHITIS DUE TO MYCOPLASMA PNEUMONIAE 11/12/2018 Chris Fagan 923.00 CONTUSION OF SHOULDER REGION 11/12/2018 Chris Fagan S40.011A CONTUSION OF RIGHT SHOULDER, INITIAL ENCOUNTER 11/21/2018 MICHAEL PUCKETT 922.1 CONTUSION OF CHEST WALL 11/21/2018 MICHAEL PUCKETT S20.2 11A CONTUSION OF RIGHT FRONT WALL OF THORAX, INITIAL ENCOUNTER 11/26/2018 Chris Fagan 786.5 CHEST PAIN 11/26/2018 Chris Fagan R07.89 OTHER CHEST PAIN 02/06/2019 LORENZA BAUM W 413.9 OTHER AND UNSPECIFIED ANGINA PECTORIS 02/06/2019 LEISURE, LORENZA W I20.9 ANGINA PECTORIS, UNSPECIFIED 02/06/2019 LEISURE, LORENZA W 413.9 OTHER AND UNSPECIFIED ANGINA PECTORIS 02/06/2019 LEISURE, LORENZA W I20.9 ANGINA PECTORIS, UNSPECIFIED 02/07/2019 LEISURE, LORENZA W 413.9 OTHER AND UNSPECIFIED ANGINA PECTORIS 02/07/2019 LEISURE, LORENZA W I20.9 ANGINA PECTORIS, UNSPECIFIED 02/12/2019 Ot 780.57 02/12/2019 Ot 786.09 02/12/2019 [facility] DONAL Payne Ot 571.8 CHRONIC LIVER DIS NEC 02/12/2019 [facility] DONAL Payne Ot 789.1 HEPATOMEGALY 02/12/2019 [facility] DONAL Payne Ot 789.2 SPLENOMEGALY 08/11/2019 W 700 CORNS AND CALLOSITIES 08/11/2019 W I20.9 IFEOMA NA PECTORIS, UNSPECIFIED 08/11/2019 W J20.0 ACUT E BRONCHITIS DUE TO MYCOPLASMA PNEUMONIAE 08/11/2019 W K29.00 ACU TE GASTRITIS WITHOUT BLEEDING 08/11/2019 W L84 CORNS AND CALLOSITIES 08/11/2019 W R07.89 OT ER CHEST PAIN 08/11/2019 W R30.0 DYSURIA 08/11/2019 W R31.9 PABLO TURIA, UNSPECIFIED 08/11/2019 W S20.211A C ONTUSION OF RIGHT FRONT WALL OF THORAX, INITIAL ENCOUNTER 08/11/2019 W S40.011A C ONTUSION OF RIGHT SHOULDER, INITIAL ENCOUNTER 10/13/2019 Chris Fagan W 923.20 CONTUSION OF HAND(S) 10/13/2019 Chris Fagan I20.9 ANGINA PECTORIS, UNSPECIFIED 10/13/2019 Chris Fagan J20.0 ACUTE BRONCHITIS DUE TO MYCOPLASMA PNEUMONIAE 10/13/2019 Chris Fagan K29.00 ACUTE GASTRITIS WITHOUT BLEEDING 10/13/2019 Chris Fagan W R07.89 OTHER CHEST PAIN 10/13/2019 Chris Fagan R30.0 DYSURIA 10/13/2019 Chris Fagan R31.9 HEMATURIA, UNSPECIFIED 10/13/2019 Chris Fagan S20.211A CONTUSION OF RIGHT FRONT WALL OF THORAX, INITIAL ENCOUNTER 10/13/2019 Chris Fagan S40.011A CONTUSION OF RIGHT SHOULDER, INITIAL ENCOUNTER 10/13/2019 Chris Fagan S60.222A CONTUSION OF LEFT HAND, INITIAL ENCOUNTER 11/12/2019 EDUIN FLOREZ APRN Ot J45.909 UNSPECIFIED ASTHMA, UNCOMPLICATED 11/12/2019 EDUIN FLOREZ APRN Ot R06.02 SHORTNESS OF BREATH 11/12/2019 DOVER DO, OSCAR Lundberg Ot E11. 43 TYPE 2 DIABETES W DIABETIC AUTONOMIC (PO 11/12/2019 MIKE DO, OSCAR D Ot E66. 01 MORBID (SEVERE) OBESITY DUE TO EXCESS CA 11/12/2019 MIKE DO, OSCAR D Ot F15. 90 OTHER STIMULANT USE, UNSPECIFIED, UNCOMP 11/12/2019 MIKE DO, OSCAR D Ot G47. 33 OBSTRUCTIVE SLEEP APNEA (ADULT) (PEDIATR 11/12/2019 DOVER DO, OSCAR D Ot I10 ESSENTIAL (PRIMARY) HYPERTENSION 11/12/2019 DOVER DO, OSCAR Toño Ot K92. 1 MELENA 11/12/2019 DOVER DO, OSCAR Lundberg Ot R10. 13 EPIGASTRIC PAIN 11/12/2019 DOVER DO, OSCAR Lundberg Ot Z53. 8 PROCEDURE AND TREATMENT NOT CARRIED OUT 11/12/2019 DOVER DO, OSCAR Lundberg Ot Z68. 43 BODY MASS INDEX (BMI) 50-59.9 , ADULT 11/12/2019 DOVER DO, OSCAR Lundberg Ot Z79. 4 ASSISTED (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 11/13/2019 EDUIN FLOREZ APRN Ot J45.909 UNSPECIFIED ASTHMA, UNCOMPLICATED 11/13/2019 EDUIN FLOREZ APRN Ot R06.02 SHORTNESS OF BREATH 11/13/2019 MIKE DOOSCAR Ot E11. 43 TYPE 2 DIABETES W DIABETIC AUTONOMIC (PO 11/13/2019 MIKE DO, OSCAR D Ot E66. 01 MORBID (SEVERE) OBESITY DUE TO EXCESS CA 11/13/2019 MIKE DO, OSCAR D Ot F15. 90 OTHER STIMULANT USE, UNSPECIFIED, UNCOMP 11/13/2019 MIKE DO, OSCAR D Ot G47. 33 OBSTRUCTIVE SLEEP APNEA (ADULT) (PEDIATR 11/13/2019 [facility] ESSENTIAL (PRIMARY) HYPERTENSION 11/13/2019 [facility] K92. 1 MELENA 11/13/2019 [facility] R10. 13 EPIGASTRIC PAIN 11/13/2019 [facility], OSCAR Lundberg Ot Z53. 8 PROCEDURE AND TREATMENT NOT CARRIED OUT 11/13/2019 [facility] Z68. 43 BODY MASS INDEX (BMI) 50-59.9 , ADULT 11/13/2019 [facility], OSCAR Lundberg Ot Z79. 4 WALKING DRAGLINE OILER (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 11/15/2019 DIOR OLIVIA MD Ot E11.621 TYPE 2 DIABETES MELLITUS WITH FOOT ULCER 11/15/2019 DIOR OLIVIA MD Ot S91.332A PUNCTURE WOUND WITHOUT FOREIGN BODY, LEF 11/15/2019 DIOR OLIVIA MD, Ot S99.922A UNSPECIFIED INJURY OF LEFT FOOT, INITIAL 11/19/2019 EDUIN FLOREZ APRN Ot J45.909 UNSPECIFIED ASTHMA, UNCOMPLICATED 11/19/2019 EDUIN FLOREZ APRN Ot R06.02 SHORTNESS OF BREATH 11/19/2019 [facility] E11. 43 TYPE 2 DIABETES W DIABETIC AUTONOMIC (PO 11/19/2019 [facility] E66. 01 MORBID (SEVERE) OBESITY DUE TO EXCESS CA 11/19/2019 [facility] F15. 90 OTHER STIMULANT USE, UNSPECIFIED, UNCOMP 11/19/2019 [facility] G47. 33 OBSTRUCTIVE SLEEP APNEA (ADULT) (PEDIATR 11/19/2019 [facility] I10 ESSENTIAL (PRIMARY) HYPERTENSION 11/19/2019 [facility] K92. 1 MELENA 11/19/2019 [facility] R10. 13 EPIGASTRIC PAIN 11/19/2019 [facility] Z53. 8 PROCEDURE AND TREATMENT NOT CARRIED OUT 11/19/2019 [facility] Z68. 43 BODY MASS INDEX (BMI) 50-59.9 , ADULT 11/19/2019 [facility] Z79. 4 WALKING DRAGLINE OILER (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 11/19/2019 DIOR OLIVIA MD Ot L97.522 NON-PRS CHRONIC ULCER OTH PRT LEFT FOOT 11/19/2019 DIOR OLIVIA MD, Ot E11.621 TYPE 2 DIABETES MELLITUS WITH FOOT ULCER 11/19/2019 DIOR OLIVIA MD, Ot S91.332A PUNCTURE WOUND WITHOUT FOREIGN BODY, LEF 11/19/2019 DIOR OLIVIA MD, Ot S99.922A UNSPECIFIED INJURY OF LEFT FOOT, INITIAL 11/19/2019 DIOR OLVIIA MD, Ot E11.621 TYPE 2 DIABETES MELLITUS WITH FOOT ULCER 11/19/2019 DIOR OLIVIA MD, Ot S91.332A PUNCTURE WOUND WITHOUT FOREIGN BODY, LEF 11/19/2019 DIOR OLIVIA MD, Ot S99.922A UNSPECIFIED INJURY OF LEFT FOOT, INITIAL 11/20/2019 DIOR OLIVIA MD, Ot E11.42 TYPE 2 DIABETES MELLITUS WITH DIABETIC P 11/20/2019 DIOR OLIVIA MD, Ot E11.52 TYPE 2 DIABETES W DIABETIC PERIPHERAL AN 11/20/2019 DIOR OLIVIA MD, Ot E11.621 TYPE 2 DIABETES MELLITUS WITH FOOT ULCER 11/20/2019 DIOR OLIVIA MD, Ot E11.65 TYPE 2 DIABETES MELLITUS WITH HYPERGLYCE 11/20/2019 DIOR OLIVIA MD Ot I70.262 ATHSCL [place] ARTERIES OF EXTREMITIES W 11/20/2019 DIOR OLIVIA MD Ot L03.116 CELLULITIS OF LEFT LOWER LIMB 11/20/2019 DIOR OLIVIA MD, Ot L97.522 NON-PRS CHRONIC ULCER OTH PRT LEFT FOOT 11/20/2019 ROGEL DO, ROBIN Ot A41.9 SEPSIS, UNSPECIFIED ORGANISM 11/20/2019 ROGEL DO, ROBIN Ot E11.42 TYPE 2 DIABETES MELLITUS WITH DIABETIC P 11/20/2019 ROGEL DO, ROBIN Ot E11.62 1 TYPE 2 DIABETES MELLITUS WITH FOOT ULCER 11/20/2019 ROGEL DO, ROBIN Ot E11.65 TYPE 2 DIABETES MELLITUS WITH HYPERGLYCE 11/20/2019 ROGEL DO, ROBIN Ot E66.9 OBESITY, UNSPECIFIED 11/20/2019 ROGEL DO, ROBIN Ot F15.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 ABUSE, UNCOMPLICATED 11/20/2019 ROGEL DO, ROBIN Ot F20.9 SCHIZOPHRENIA, UNSPECIFIED 11/20/2019 ROGEL DO, ROBIN Ot F32.9 MAJOR DEPRESSIVE DISORDER, SINGLE EPISOD 11/20/2019 ROGEL DO, ROBIN Ot F41.9 ANXIETY DISORDER, UNSPECIFIED 11/20/2019 ROGEL DO, ROBIN Ot G47.30 SLEEP APNEA, UNSPECIFIED 11/20/2019 ROGEL DO, ROBIN Ot I10 ESSENTIAL (PRIMARY) HYPERTENSION 11/20/2019 ROGEL DO, ROBIN Ot J30.2 OTHER SEASONAL ALLERGIC RHINITIS 11/20/2019 ROGEL DO, ROBIN Ot J44.9 CHRONIC OBSTRUCTIVE PULMONARY DISEASE, U 11/20/2019 ROGEL DO, ROBIN Ot K21.9 GASTRO-ESOPHAGEAL REFLUX DISEASE WITHOUT 11/20/2019 ROGEL DO, ROBIN Ot L03.03 2 CELLULITIS OF LEFT TOE 11/20/2019 ROGEL DO, ROBIN Ot L03.11 6 CELLULITIS OF LEFT LOWER LIMB 11/20/2019 ROGEL DO, ROBIN Ot L97.42 9 NON-PRS CHRONIC ULCER OF LEFT HEEL AND M 11/20/2019 ROGEL DO, ROBIN Ot L97.52 9 NON-PRESSURE CHRONIC ULCER OTH PRT LEFT 11/20/2019 ROGEL DO, ROBIN Ot M17.0 BILATERAL PRIMARY OSTEOARTHRITIS OF KNEE 11/20/2019 ROGEL DO, ROBIN Ot R60.9 EDEMA, UNSPECIFIED 11/20/2019 ROGEL DO, ROBIN Ot S91.33 2A PUNCTURE WOUND WITHOUT FOREIGN BODY, LEF 11/20/2019 ROGEL DO, ROBIN Ot Z68.42 BODY MASS INDEX (BMI) 45.0-49.9, ADULT 11/20/2019 ROGEL DO, ROBIN Ot Z79.4 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 OILER (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 11/20/2019 ROGEL DO, ROBIN Ot Z87.19 PERSONAL HISTORY OF OTHER DISEASES OF TH 11/20/2019 ROGEL DO, ROBIN Ot Z87.89 1 PERSONAL HISTORY OF NICOTINE DEPENDENCE 11/20/2019 ROGEL DO, ROBIN Ot Z91.14 PATIENT'S OTHER NONCOMPLIANCE WITH MEDIC Procedures Code [place] [address] GLUC OSE FINGER STICK 10/15/2012 80979 A1C (IN-HOUSE) 10/15/2012 82942 ROUT INE VENIPUNCTURE 11/07/2012 12106 CBC 11/07/2012 77853 CMP 11/07/2012 [id number] GF R CALC (RESULT ONLY) 11/07/2012 46203 AMYLASE 11/07/2012 69415 LIPASE 11/07/2012 97503 ROUT INE VENIPUNCTURE 12/25/2012 83572 UA L RISA DIP 12/25/2012 83451 CBC 12/25/2012 45011 CMP 12/25/2012 [id number] GF R CALC (RESULT ONLY) 12/25/2012 48617 AMYLASE 12/25/2012 01369 LIPASE 12/25/2012 67257 ROUT INE VENIPUNCTURE 01/09/2013 77855 CBC 01/09/2013 77842 CMP 01/09/2013 [id number] GF R CALC (RESULT ONLY) 01/09/2013 70184 AMYLASE 01/09/2013 38949 LIPASE 01/09/2013 37717 US A BDOMINAL ULTRASOUND, COMPLETE 01/10/2013 43591 XRAY KNEE RIGHT 1 OR 2 VIEWS 01/16/2013 Orthopedi Jamil Machuca 01/30/2013 11969 A1C (IN-HOUSE) 02/06/2013 88062 JOIN T INJECTION- LARGE JOINT (SPECIFY MEDCIN DESCRIPTION) 03/27 Orthopedi Dior Garrett 06/02/2013 Results Test Result Range Capillary blood glucose measurement by g lucometer (mass/volume) - 04/12/16 09:00 Capillary blood glucose measurement by glucometer (mas s/volume) 439 mg/dL 70-110 Complete blood count (CBC) with automate d white blood cell (WBC) differential - 04/12/16 09:04 Blood leukocytes automated count (number/volume) 8.7 10*3/uL 4.3-11.0 Blood erythrocytes automated count (number/volume) 4.71 10*6/uL 4.35-5.85 Venous blood hemoglobin measurement (mass/volume) 13.8 g/dL 13.3-17.7 Blood hematocrit (volume fraction) 41 % 40-54 Automated erythrocyte mean corpuscular volume 87 [ foz_us] 80-99 Automated erythrocyte mean corpuscular h emoglobin (mass per erythrocyte) 29 pg 25-34 Automated erythrocyte mean corpuscular h emoglobin concentration measurement (mass/volume) 34 g/dL 32-36 Automated erythrocyte distribution width ratio 14. 4 % 10.0- 14.5 Automated blood platelet count (count/volume) 174 10*3/uL [...] 10*3 1.0-4.0 Blood monocytes automated count (number/volume) 0. 7 10*3 0.0-1.0 Automated eosinophil count 0.2 10*3/uL 0 .0-0.3 Automated blood basophil count (count/volume) 0.1 10*3/uL 0.0-0.1 PT panel in platelet poor plasma by coag ulation assay - 04/12/16 09:04 Prothrombin time (PT) in platelet poor plasma by coagu lation assay 13.9 s 12.2-14.7 INR in platelet poor plasma or blood by coagulation as say 1.1 0.8-1.4 Activated partial thromboplastin time (a PTT) in platelet poor plasma bycoagulation assay - 04/12/16 09:04 Activated partial thromboplastin time (a PTT) in platelet poor plasma bycoagulation assay 29 s 24-35 Fibrin D-dimer FEU measurement in platel et poor plasma (mass/volume) - 04/12/16 09:04 Fibrin D-dimer FEU measurement in platelet [...] 5-14 Serum or plasma urea nitrogen measurement (mass/volume ) 9 mg/dL 7-18 Serum or plasma creatinine measurement (mass/volume) 0.83 mg/dL 0.60-1.30 Serum or plasma urea nitrogen/creatinine mass ratio 11 NRG Serum or plasma creatinine measurement w ith calculation of estimated glomerular filtration rate > NRG Serum or plasma glucose measurement (mass/volume) 528 mg/dL 70-105 Serum or plasma calcium measurement (mass/volume) 8.9 mg/dL 8.5-10.1 Serum or plasma total bilirubin measurement (mass/volu me) 0.7 mg/dL 0.1-1.0 Serum or plasma alkaline phosphatase mojgan surement (enzymatic activity/volume) 114 U/L 40-136 Serum or plasma aspartate aminotransfera se measurement (enzymatic activity/volume) 47 U/L 5-34 Serum or plasma alanine aminotransferase measurement (enzymatic activity/volume) 64 U/L 0-55 Serum or plasma protein measurement (mass/volume) 6.3 g/dL 6.4-8.2 Serum or plasma albumin measurement (mass/volume) 3.5 g/dL 3.2-4.5 Serum or plasma troponin i.cardiac measu rement (mass/volume) - 04/12/16 09:04 Serum or plasma troponin i.cardiac measurement (mass/v olume) < ng/mL <0.30 Complete urinalysis with reflex to cultu re - 04/12/16 09:45 Urine color determination YELLOW NRG Urine clarity determination CLEAR NR G Urine pH measurement by test strip 6 5-9 Specific gravity of urine by test strip 1.010 1.016-1.022 Urine protein assay by test strip, semi-quantitative NEGATIVE NEGATIVE Urine glucose detection by automated test strip 4+ NEGATIVE Erythrocytes detection in urine sediment by light micr oscopy NEGATIVE NEGATIVE Urine ketones detection by automated test strip NE GATIVE NEGATIVE Urine nitrite detection by test strip NEGATIVE NEGATIVE Urine total bilirubin detection by test strip NEGA TIVE NEGATIVE Urine urobilinogen measurement by automated test strip (mass/volume) NORMAL NORMAL Urine leukocyte esterase detection by dipstick NEG ATIVE NEGATIVE Automated urine sediment erythrocyte cou nt by microscopy (number/high power field) NONE NRG Automated urine sediment leukocyte count by microscopy (number/high power field) RARE NRG Bacteria detection in urine sediment by light microsco py NEGATIVE NRG Squamous epithelial cells detection in u rine sediment by light microscopy 2-5 NRG Crystals detection in urine sediment by light microsco py NONE NRG Casts detection in urine sediment by light microscopy NONE NRG Mucus detection in urine sediment by light microscopy NEGATIVE NRG Complete urinalysis with reflex to culture NO NRG Urine drug screening test - 04/12/16 09: 45 Urine acetaminophen detection by screening method NEGATIVE NEGATIVE Urine phencyclidine detection by screening method NEGATIVE NEGATIVE Urine benzodiazepines detection by screening method NEGATIVE NEGATIVE Urine cocaine detection NEGATIVE NEGATI VE Urine amphetamines detection by screening method P OSITIVE NEGATIVE Urine methamphetamine detection by screening method POSITIVE NEGATIVE Urine cannabinoids detection by screening method N EGATIVE NEGATIVE Urine opiates detection by screening method NEGATI VE NEGATIVE Urine barbiturates detection NEGATIVE N EGATIVE Screening urine tricyclic antidepressants detection NEGATIVE NEGATIVE Urine methadone detection by screening method NEGA TIVE NEGATIVE Capillary blood glucose measurement by g lucometer (mass/volume) - 04/12/16 10:40 Capillary blood glucose measurement by glucometer (mas s/volume) 431 mg/dL 70-110 Capillary blood glucose measurement by g lucometer (mass/volume) - 04/12/16 11:51 Capillary blood glucose measurement by glucometer (mas s/volume) 360 mg/dL 70-110 Capillary blood glucose measurement by g lucometer (mass/volume) - 04/12/16 12:21 Capillary blood glucose measurement by glucometer (mas s/volume) 340 mg/dL 70-110 Hemoglobin A1c - 10/08/16 07:44 Hemoglobin A1c 13.6 % 4.5-6.2 Complete blood count (CBC) with automate d white blood cell (WBC) differential - 10/08/16 07:49 Blood leukocytes automated count (number/volume) 8.8 10*3/uL 4.3-11.0 Blood erythrocytes automated count (number/volume) 5.62 10*6/uL 4.35-5.85 Venous blood hemoglobin measurement (mass/volume) 16.3 g/dL 13.3-17.7 Blood hematocrit (volume fraction) 48 % 40-54 Automated erythrocyte mean corpuscular volume 85 [ foz_us] 80-99 Automated erythrocyte mean corpuscular h emoglobin (mass per erythrocyte) 29 pg 25-34 Automated erythrocyte mean corpuscular h emoglobin concentration measurement (mass/volume) 34 g/dL 32-36 Automated erythrocyte distribution width ratio 14. 0 % 10.0- 14.5 Automated blood platelet count (count/volume) 172 10*3/uL [...] 10*3 1.0-4.0 Blood monocytes automated count (number/volume) 0. 7 10*3 0.0-1.0 Automated eosinophil count 0.1 10*3/uL 0 .0-0.3 Automated blood basophil count (count/volume) 0.0 10*3/uL 0.0-0.1 Influenza virus A and B antigen detectio n - 10/08/16 07:49 FLU RESULT NEGATIVE FOR INFLUENZA A AND B ANTIGENS BY IA NRG Capillary blood glucose measurement by g lucometer (mass/volume) - 10/08/16 15:39 Capillary blood glucose measurement by glucometer (mas s/volume) 484 mg/dL 70-110 Capillary blood glucose measurement by g lucometer (mass/volume) - 10/08/16 20:42 Capillary blood glucose measurement by glucometer (mas s/volume) 400 mg/dL 70-110 Capillary blood glucose measurement by g lucometer (mass/volume) - 10/09/16 05:44 Capillary blood glucose measurement by glucometer (mas s/volume) 324 mg/dL 70-110 Capillary blood glucose measurement by g lucometer (mass/volume) - 10/09/16 11:16 Capillary blood glucose measurement by glucometer (mas s/volume) 301 mg/dL 70-110 Complete blood count (CBC) with automate d white blood cell (WBC) differential - 09/24/17 13:35 Blood leukocytes automated count (number/volume) 8.4 10*3/uL 4.3-11.0 Blood erythrocytes automated count (number/volume) 4.87 10*6/uL 4.35-5.85 Venous blood hemoglobin measurement (mass/volume) 14.5 g/dL 13.3-17.7 Blood hematocrit (volume fraction) 43 % 40-54 Automated erythrocyte mean corpuscular volume 88 [ foz_us] 80-99 Automated erythrocyte mean corpuscular h emoglobin (mass per erythrocyte) 30 pg 25-34 Automated erythrocyte mean corpuscular h emoglobin concentration measurement (mass/volume) 34 g/dL 32-36 Automated erythrocyte distribution width ratio 13. 8 % 10.0- 14.5 Automated blood platelet count (count/volume) 144 10*3/uL [...] 10*3 1.0-4.0 Blood monocytes automated count (number/volume) 0. 7 10*3 0.0-1.0 Automated eosinophil count 0.2 10*3/uL 0 .0-0.3 Automated blood basophil count (count/volume) 0.0 10*3/uL 0.0-0.1 Comprehensive metabolic panel - 09/24/17 13:35 Serum or plasma sodium measurement (moles/volume) 135 mmol/L 135-145 Serum or plasma potassium measurement (moles/volume) 4.7 mmol/L 3.6-5.0 Serum or plasma chloride measurement (moles/volume) 97 mmol/L 98-107 Carbon dioxide 27 mmol/L 21-32 Serum or plasma anion gap determination (moles/volume) 11 mmol/L 5-14 Serum or plasma urea nitrogen measurement (mass/volume ) 21 mg/dL 7-18 Serum or plasma creatinine measurement (mass/volume) 0.82 mg/dL 0.60-1.30 Serum or plasma urea nitrogen/creatinine mass ratio 26 NRG Serum or plasma creatinine measurement w ith calculation of estimated glomerular filtration rate > NRG Serum or plasma glucose measurement (mass/volume) 461 mg/dL 70-105 Serum or plasma calcium measurement (mass/volume) 9.4 mg/dL 8.5-10.1 Serum or plasma total bilirubin measurement (mass/volu me) 0.4 mg/dL 0.1-1.0 Serum or plasma alkaline phosphatase mojgan surement (enzymatic activity/volume) 157 U/L 40-136 Serum or plasma aspartate aminotransfera se measurement (enzymatic activity/volume) 44 U/L 5-34 Serum or plasma alanine aminotransferase measurement (enzymatic activity/volume) 62 U/L 0-55 Serum or plasma protein measurement (mass/volume) 6.5 g/dL 6.4-8.2 Serum or plasma albumin measurement (mass/volume) 3.5 g/dL 3.2-4.5 Lipase - 09/24/17 13:35 Lipase 53 U/L 8-78 Urine drug screening test - 09/24/17 14: 54 Urine phencyclidine detection by screening method NEGATIVE NEGATIVE Urine benzodiazepines detection by screening method NEGATIVE NEGATIVE Urine cocaine detection NEGATIVE NEGATI VE Urine amphetamines detection by screening method P OSITIVE NEGATIVE Urine methamphetamine detection by screening method POSITIVE NEGATIVE Urine cannabinoids detection by screening method N EGATIVE NEGATIVE Urine opiates detection by screening method POSITI VE NEGATIVE Urine barbiturates detection NEGATIVE N EGATIVE Screening urine tricyclic antidepressants detection NEGATIVE NEGATIVE Urine methadone detection by screening method NEGA TIVE NEGATIVE Urine oxycodone detection NEGATIVE NEGA TIVE Urine propoxyphene detection NEGATIVE N EGATIVE Complete urinalysis with reflex to cultu re - 09/24/17 14:54 Urine color determination YELLOW NRG Urine clarity determination CLEAR NR G Urine pH measurement by test strip 6 5-9 Specific gravity of urine by test strip 1.010 1.016-1.022 Urine protein assay by test strip, semi-quantitative NEGATIVE NEGATIVE Urine glucose detection by automated test strip 4+ NEGATIVE Erythrocytes detection in urine sediment by light micr oscopy NEGATIVE NEGATIVE Urine ketones detection by automated test strip NE GATIVE NEGATIVE Urine nitrite detection by test strip NEGATIVE NEGATIVE Urine total bilirubin detection by test strip NEGA TIVE NEGATIVE Urine urobilinogen measurement by automated test strip (mass/volume) NORMAL NORMAL Urine leukocyte esterase detection by dipstick NEG ATIVE NEGATIVE Automated urine sediment erythrocyte cou nt by microscopy (number/high power field) NONE NRG Automated urine sediment leukocyte count by microscopy (number/high power field) NONE NRG Bacteria detection in urine sediment by light microsco py NEGATIVE NRG Squamous epithelial cells detection in u rine sediment by light microscopy RARE NRG Crystals detection in urine sediment by light microsco py NONE NRG Casts detection in urine sediment by light microscopy NONE NRG Mucus detection in urine sediment by light microscopy NEGATIVE NRG Complete urinalysis with reflex to culture NO NRG Capillary blood glucose measurement by g lucometer (mass/volume) - 09/24/17 15:25 Capillary blood glucose measurement by glucometer (mas s/volume) 336 mg/dL 70-110 Capillary blood glucose measurement by g lucometer (mass/volume) - 10/06/17 15:08 Capillary blood glucose measurement by glucometer (mas s/volume) 462 mg/dL 70-110 Complete blood count (CBC) with automate d white blood cell (WBC) differential - 10/06/17 15:21 Blood leukocytes automated count (number/volume) 7.7 10*3/uL 4.3-11.0 Blood erythrocytes automated count (number/volume) 4.66 10*6/uL 4.35-5.85 Venous blood hemoglobin measurement (mass/volume) 13.8 g/dL 13.3-17.7 Blood hematocrit (volume fraction) 40 % 40-54 Automated erythrocyte mean corpuscular volume 87 [ foz_us] 80-99 Automated erythrocyte mean corpuscular h emoglobin (mass per erythrocyte) 30 pg 25-34 Automated erythrocyte mean corpuscular h emoglobin concentration measurement (mass/volume) 34 g/dL 32-36 Automated erythrocyte distribution width ratio 13. 8 % 10.0- 14.5 Automated blood platelet count (count/volume) 158 10*3/uL [...] 10*3 1.0-4.0 Blood monocytes automated count (number/volume) 0. 7 10*3 0.0-1.0 Automated eosinophil count 0.2 10*3/uL 0 .0-0.3 Automated blood basophil count (count/volume) 0.0 10*3/uL 0.0-0.1 Comprehensive metabolic panel - 10/06/17 15:21 Serum or plasma sodium measurement (moles/volume) 133 mmol/L 135-145 Serum or plasma potassium measurement (moles/volume) 4.3 mmol/L 3.6-5.0 Serum or plasma chloride measurement (moles/volume) 98 mmol/L 98-107 Carbon dioxide 23 mmol/L 21-32 Serum or plasma anion gap determination (moles/volume) 12 mmol/L 5-14 Serum or plasma urea nitrogen measurement (mass/volume ) 11 mg/dL 7-18 Serum or plasma creatinine measurement (mass/volume) 0.84 mg/dL 0.60-1.30 Serum or plasma urea nitrogen/creatinine mass ratio 13 NRG Serum or plasma creatinine measurement w ith calculation of estimated glomerular filtration rate > NRG Serum or plasma glucose measurement (mass/volume) 517 mg/dL 70-105 Serum or plasma calcium measurement (mass/volume) 9.1 mg/dL 8.5-10.1 Serum or plasma total bilirubin measurement (mass/volu me) 0.5 mg/dL 0.1-1.0 Serum or plasma alkaline phosphatase mojgan surement (enzymatic activity/volume) 130 U/L 40-136 Serum or plasma aspartate aminotransfera se measurement (enzymatic activity/volume) 50 U/L 5-34 Serum or plasma alanine aminotransferase measurement (enzymatic activity/volume) 62 U/L 0-55 Serum or plasma protein measurement (mass/volume) 6.5 g/dL 6.4-8.2 Serum or plasma albumin measurement (mass/volume) 3.4 g/dL 3.2-4.5 Lipase - 10/06/17 15:21 Lipase 33 U/L 8-78 Complete urinalysis with reflex to cultu re - 10/06/17 16:35 Urine color determination YELLOW NRG Urine clarity determination CLEAR NR G Urine pH measurement by test strip 6 5-9 Specific gravity of urine by test strip 1.020 1.016-1.022 Urine protein assay by test strip, semi-quantitative NEGATIVE NEGATIVE Urine glucose detection by automated test strip 4+ NEGATIVE Erythrocytes detection in urine sediment by light micr oscopy NEGATIVE NEGATIVE Urine ketones detection by automated test strip NE GATIVE NEGATIVE Urine nitrite detection by test strip NEGATIVE NEGATIVE Urine total bilirubin detection by test strip NEGA TIVE NEGATIVE Urine urobilinogen measurement by automated test strip (mass/volume) NORMAL NORMAL Urine leukocyte esterase detection by dipstick NEG ATIVE NEGATIVE Automated urine sediment erythrocyte cou nt by microscopy (number/high power field) NONE NRG Automated urine sediment leukocyte count by microscopy (number/high power field) NONE NRG Bacteria detection in urine sediment by light microsco py NONE NRG Squamous epithelial cells detection in u rine sediment by light microscopy 2-5 NRG Crystals detection in urine sediment by light microsco py NONE NRG Casts detection in urine sediment by light microscopy NONE NRG Mucus detection in urine sediment by light microscopy NEGATIVE NRG Complete urinalysis with reflex to culture NO NRG Capillary blood glucose measurement by g lucometer (mass/volume) - 10/06/17 16:54 Capillary blood glucose measurement by glucometer (mas s/volume) 329 mg/dL 70-110 Complete blood count (CBC) with automate d white blood cell (WBC) differential - 10/10/17 13:05 Blood leukocytes automated count (number/volume) 8.4 10*3/uL 4.3-11.0 Blood erythrocytes automated count (number/volume) 4.80 10*6/uL 4.35-5.85 Venous blood hemoglobin measurement (mass/volume) 14.4 g/dL 13.3-17.7 Blood hematocrit (volume fraction) 42 % 40-54 Automated erythrocyte mean corpuscular volume 87 [ foz_us] 80-99 Automated erythrocyte mean corpuscular h emoglobin (mass per erythrocyte) 30 pg 25-34 Automated erythrocyte mean corpuscular h emoglobin concentration measurement (mass/volume) 35 g/dL 32-36 Automated erythrocyte distribution width ratio 14. 2 % 10.0- 14.5 Automated blood platelet count (count/volume) 159 10*3/uL [...] 10*3 1.0-4.0 Blood monocytes automated count (number/volume) 0. 8 10*3 0.0-1.0 Automated eosinophil count 0.2 10*3/uL 0 .0-0.3 Automated blood basophil count (count/volume) 0.0 10*3/uL 0.0-0.1 Comprehensive metabolic panel - 10/10/17 13:52 Serum or plasma sodium measurement (moles/volume) 137 mmol/L 135-145 Serum or plasma potassium measurement (moles/volume) 4.0 mmol/L 3.6-5.0 Serum or plasma chloride measurement (moles/volume) 101 mmol/L 98-107 Carbon dioxide 25 mmol/L 21-32 Serum or plasma anion gap determination (moles/volume) 11 mmol/L 5-14 Serum or plasma urea nitrogen measurement (mass/volume ) 10 mg/dL 7-18 Serum or plasma creatinine measurement (mass/volume) 0.70 mg/dL 0.60-1.30 Serum or plasma urea nitrogen/creatinine mass ratio 14 NRG Serum or plasma creatinine measurement w ith calculation of estimated glomerular filtration rate > NRG Serum or plasma glucose measurement (mass/volume) 233 mg/dL 70-105 Serum or plasma calcium measurement (mass/volume) 9.2 mg/dL 8.5-10.1 Serum or plasma total bilirubin measurement (mass/volu me) 0.6 mg/dL 0.1-1.0 Serum or plasma alkaline phosphatase omjgan surement (enzymatic activity/volume) 90 U/L 40-136 Serum or plasma aspartate aminotransfera se measurement (enzymatic activity/volume) 71 U/L 5-34 Serum or plasma alanine aminotransferase measurement (enzymatic activity/volume) 75 U/L 0-55 Serum or plasma protein measurement (mass/volume) 6.6 g/dL 6.4-8.2 Serum or plasma albumin measurement (mass/volume) 3.4 g/dL 3.2-4.5 Serum or plasma amylase measurement (enz ymatic activity/volume) - 10/10/17 13:52 Serum or plasma amylase measurement (enzymatic activit y/volume) 24 U/L 25-125 Lipase - 10/10/17 13:52 Lipase 14 U/L 8-78 Capillary blood glucose measurement by g lucometer (mass/volume) - 10/16/17 08:16 Capillary blood glucose measurement by glucometer (mas s/volume) 109 mg/dL 70-110 Urine drug screening test - 10/16/17 08: 55 Urine phencyclidine detection by screening method NEGATIVE NEGATIVE Urine benzodiazepines detection by screening method NEGATIVE NEGATIVE Urine cocaine detection NEGATIVE NEGATI VE Urine amphetamines detection by screening method P OSITIVE NEGATIVE Urine methamphetamine detection by screening method POSITIVE NEGATIVE Urine cannabinoids detection by screening method N EGATIVE NEGATIVE Urine opiates detection by screening method NEGATI VE NEGATIVE Urine barbiturates detection NEGATIVE N EGATIVE Screening urine tricyclic antidepressants detection NEGATIVE NEGATIVE Urine methadone detection by screening method NEGA TIVE NEGATIVE Urine oxycodone detection NEGATIVE NEGA TIVE Urine propoxyphene detection NEGATIVE N EGATIVE Complete blood count (CBC) with automate d white blood cell (WBC) differential - 01/08/18 12:40 Blood leukocytes automated count (number/volume) 9.4 10*3/uL 4.3-11.0 Blood erythrocytes automated count (number/volume) 4.51 10*6/uL 4.35-5.85 Venous blood hemoglobin measurement (mass/volume) 13.3 g/dL 13.3-17.7 Blood hematocrit (volume fraction) 40 % 40-54 Automated erythrocyte mean corpuscular volume 90 [ foz_us] 80-99 Automated erythrocyte mean corpuscular h emoglobin (mass per erythrocyte) 30 pg 25-34 Automated erythrocyte mean corpuscular h emoglobin concentration measurement (mass/volume) 33 g/dL 32-36 Automated erythrocyte distribution width ratio 14. 1 % 10.0- 14.5 Automated blood platelet count (count/volume) 206 10*3/uL 130-400 Automated blood platelet mean volume measurement 10.4 [foz_us] 7.4-10.4 Automated blood neutrophils/100 leukocytes 71 % 42-75 Automated blood lymphocytes/100 leukocytes 19 % 12-44 Blood monocytes/100 leukocytes 8 % 0-12 Automated blood eosinophils/100 leukocytes 2 % 0-10 Automated blood basophils/100 leukocytes 0 % 0-10 Blood neutrophils automated count (number/volume) 6.7 10*3 1.8-7.8 Blood lymphocytes automated count (number/volume) 1.8 10*3 1.0-4.0 Blood monocytes automated count (number/volume) 0. 7 10*3 0.0-1.0 Automated eosinophil count 0.2 10*3/uL 0 .0-0.3 Automated blood basophil count (count/volume) 0.0 10*3/uL 0.0-0.1 Blood lactic acid measurement (moles/vol ume) - 01/08/18 12:40 Blood lactic acid measurement (moles/volume) 3.16 mmol/L 0.50-2.00 Comprehensive metabolic panel - 01/08/18 12:40 Serum or plasma sodium measurement (moles/volume) 135 mmol/L 135-145 Serum or plasma potassium measurement (moles/volume) 5.7 mmol/L 3.6-5.0 Serum or plasma chloride measurement (moles/volume) 100 mmol/L 98-107 Carbon dioxide 25 mmol/L 21-32 Serum or plasma anion gap determination (moles/volume) 10 mmol/L 5-14 Serum or plasma urea nitrogen measurement (mass/volume ) 28 mg/dL 7-18 Serum or plasma creatinine measurement (mass/volume) 1.05 mg/dL 0.60-1.30 Serum or plasma urea nitrogen/creatinine mass ratio 27 NRG Serum or plasma creatinine measurement w ith calculation of estimated glomerular filtration rate > NRG Serum or plasma glucose measurement (mass/volume) 210 mg/dL 70-105 Serum or plasma calcium measurement (mass/volume) 9.6 mg/dL 8.5-10.1 Serum or plasma total bilirubin measurement (mass/volu me) 0.5 mg/dL 0.1-1.0 Serum or plasma alkaline phosphatase mojgan surement (enzymatic activity/volume) 79 U/L 40-136 Serum or plasma aspartate aminotransfera se measurement (enzymatic activity/volume) 86 U/L 5-34 Serum or plasma alanine aminotransferase measurement (enzymatic activity/volume) 75 U/L 0-55 Serum or plasma protein measurement (mass/volume) 7.3 g/dL 6.4-8.2 Serum or plasma albumin measurement (mass/volume) 3.8 g/dL 3.2-4.5 Magnesium - 01/08/18 12:40 Magnesium 1.6 mg/dL 1.8-2.4 Serum or plasma creatine kinase measurem ent (enzymatic activity/volume) - 01/08/18 12:40 Serum or plasma creatine kinase measurem ent (enzymatic activity/volume) 85 U/L 30-200 PT panel in platelet poor plasma by coag ulation assay - 01/08/18 12:40 Prothrombin time (PT) in platelet poor plasma by coagu lation assay 13.9 s 12.2-14.7 INR in platelet poor plasma or blood by coagulation as say 1.1 0.8-1.4 Activated partial thromboplastin time (a PTT) in platelet poor plasma bycoagulation assay - 01/08/18 12:40 Activated partial thromboplastin time (a PTT) in platelet poor plasma bycoagulation assay 30 s 24-35 Serum or plasma lithium measurement (mol es/volume) - 01/08/18 12:40 BNP level 10.0 pg/mL <100.0 Serum or plasma creatine kinase MB measu rement (enzymatic activity/volume) - 01/08/18 12:40 Serum or plasma creatine kinase MB measu rement (enzymatic activity/volume) 3.1 ng/mL <6.6 Serum or plasma troponin i.cardiac measu rement (mass/volume) - 01/08/18 12:40 Serum or plasma troponin i.cardiac measurement (mass/v olume) < ng/mL <0.30 Serum or plasma thyrotropin measurement by detection limit <=0.05 miu/l (units/volume) - 01/08/18 12:40 Serum or plasma thyrotropin measurement by detection limit <=0.05 miu/l (units/volume) 2.57 u[iU]/mL 0.35-4.94 Serum or plasma ethanol measurement (mas s/volume) - 01/08/18 12:40 Serum or plasma ethanol measurement (mass/volume) < mg/dL <10 Lipase - 01/08/18 12:40 Lipase 35 U/L 8-78 Bacterial blood culture - 01/08/18 14:07 QUANTITY OF GROWTH . NRG Bacterial blood culture SEE COMMEN NRG Serum or plasma lactate measurement (mol es/volume) - 01/08/18 14:42 Serum or plasma lactate measurement (moles/volume) 2.93 mmol/L 0.50-2.00 Bacterial blood culture - 01/08/18 14:42 Bacterial blood culture NG NRG Complete urinalysis with reflex to cultu re - 01/08/18 14:51 Urine color determination YELLOW NRG Urine clarity determination CLEAR NR G Urine pH measurement by test strip 5 5-9 Specific gravity of urine by test strip 1.015 1.016-1.022 Urine protein assay by test strip, semi-quantitative NEGATIVE NEGATIVE Urine glucose detection by automated test strip NE GATIVE NEGATIVE Erythrocytes detection in urine sediment by light micr oscopy NEGATIVE NEGATIVE Urine ketones detection by automated test strip NE GATIVE NEGATIVE Urine nitrite detection by test strip NEGATIVE NEGATIVE Urine total bilirubin detection by test strip NEGA TIVE NEGATIVE Urine urobilinogen measurement by automated test strip (mass/volume) NORMAL NORMAL Urine leukocyte esterase detection by dipstick 1+ NEGATIVE Automated urine sediment erythrocyte cou nt by microscopy (number/high power field) NONE NRG Automated urine sediment leukocyte count by microscopy (number/high power field) [HPF] NRG Bacteria detection in urine sediment by light microsco py NEGATIVE NRG Squamous epithelial cells detection in u rine sediment by light microscopy 2-5 NRG Crystals detection in urine sediment by light microsco py NONE NRG Casts detection in urine sediment by light microscopy NONE NRG Mucus detection in urine sediment by light microscopy NEGATIVE NRG Complete urinalysis with reflex to culture NO NRG Urine drug screening test - 01/08/18 14: 51 Urine phencyclidine detection by screening method NEGATIVE NEGATIVE Urine benzodiazepines detection by screening method NEGATIVE NEGATIVE Urine cocaine detection NEGATIVE NEGATI VE Urine amphetamines detection by screening method P OSITIVE NEGATIVE Urine methamphetamine detection by screening method POSITIVE NEGATIVE Urine cannabinoids detection by screening method N EGATIVE NEGATIVE Urine opiates detection by screening method NEGATI VE NEGATIVE Urine barbiturates detection NEGATIVE N EGATIVE Screening urine tricyclic antidepressants detection NEGATIVE NEGATIVE Urine methadone detection by screening method NEGA TIVE NEGATIVE Urine oxycodone detection NEGATIVE NEGA TIVE Urine propoxyphene detection NEGATIVE N EGATIVE Capillary blood glucose measurement by g lucometer (mass/volume) - 01/08/18 17:18 Capillary blood glucose measurement by glucometer (mas s/volume) 151 mg/dL 70-110 CMP - 04/29/18 10:04 GLUCOSE 538 mg/dL 65-139 UREA NITROGEN (BUN) 12 mg/dL 7-25 CREATININE 0.73 mg/dL 0.60-1.35 eGFR NON-AFR. JORDANIAN 110 mL/min/1.73m2 > OR = 60 eGFR 128 mL/min/1.73m2 > OR = 60 BUN/CREATININE RATIO NOT APPLICABLE (calc) 6-22 SODIUM 133 mmol/L 135-146 POTASSIUM 4.7 mmol/L 3.5-5.3 CHLORIDE 95 mmol/L 98-110 CARBON DIOXIDE 30 mmol/L 20-32 CALCIUM 9.1 mg/dL 8.6-10.3 PROTEIN, TOTAL 6.3 g/dL 6.1-8.1 ALBUMIN 3.9 g/dL 3.6-5.1 GLOBULIN 2.4 g/dL (calc) 1.9-3.7 ALBUMIN/GLOBULIN RATIO 1.6 (calc) 1.0-2. 5 BILIRUBIN, TOTAL 0.7 mg/dL 0.2-1.2 ALKALINE PHOSPHATASE 110 U/L 40-115 AST 58 U/L 10-40 ALT 58 U/L 9-46 Comprehensive Metabolic Panel - 07/10/18 08:38 Albumin 4.1 g/dL 3.6-5.1 ALP 97 U/L 35-130 ALT 72 U/L 6-45 Anion Gap 19 6-14 AST 80 U/L 2-40 BUN 17 mg/dL 5-25 Calcium 10.0 mg/dL 8.3-10.4 Chloride 97 mmol/L 95-114 CO2 26 mEq/L 22-33 Creat 0.85 mg/dL 0.50-1.50 eGFR 96 mL/min/1.73m2 >59 Globulin 3.7 g/dL 2.3-3.5 Glucose 239 mg/dL 70-110 Osmo 294 280-295 Potassium 4.0 mmol/L 3.5-5.3 Sodium 138 mmol/L 134-148 TBil 0.6 mg/dL 0.2-1.2 TP 7.8 g/dL 6.0-8.3 Lipase - 07/10/18 08:38 Lipase 28 U/L 7-59 Amylase - 07/10/18 08:38 Amylase 31 U/L 20-100 Urinalysis - 07/10/18 09:58 Icotest N/A Negative Urine Volume Urine Volume Sufficient (10mL) Urine Yeast No Yeast present Urine-Appearance Clear Clear Urine-Bacteria Negative Urine-Bilirubin Negative Negative Urine-Blood Negative Negative Urine-Color Yellow Colorless-Lt. [place] ow Urine-Glucose Negative Negative Urine-Ketones Negative Negative Urine-Leukocytes Negative Negative Urine-Mucus 1+ Urine-Nitrite Negative Negative Urine-Other Urine Saved if Culture Need ed (48hrs from time of collection) Urine-pH 5.5 5-8.5 Urine-Protein Negative Negative Urine-RBC Negative Urine-Specific [place] 1.015 1.000-1 .030 Urine-WBC Nothing Seen on Microscopic Urobilinogen 0.2 E.U./dL 0.2-1.0 Urinalysis - 08/28/18 12:50 Icotest N/A Negative Urine Volume Urine Volume Sufficient (10mL) Urine Yeast No Yeast present Urine-Appearance Cloudy Clear Urine-Bacteria Negative Urine-Bilirubin Negative Negative Urine-Blood 3+ Negative Urine-Color Red Colorless-Lt. [place] ow Urine-Epithelial Cells 0-5/HPF Urine-Glucose 3+ Negative Urine-Ketones 1+ Negative Urine-Leukocytes Negative Negative Urine-Nitrite Negative Negative Urine-Other Urine Saved if Culture Need ed (48hrs from time of collection) Urine-pH 6.0 5-8.5 Urine-Protein 1+ Negative Urine-RBC TNTC Urine-Specific [place] 1.010 1.000-1 .030 Urine-WBC 2-5/HPF Urobilinogen 0.2 0.2-1.0 Chlamydia trachomatis, Neisseria gonorrh oeae, and Trichomona - 08/28/18 13:05 CHLAMYDIA BY CECILE NEGATIVE NEGATIVE GONOCOCCUS BY CECILE NEGATIVE NEGATIVE TRICH VAG BY CECILE NEGATIVE NEGATIVE Arterial Blood Gas - 11/05/18 17:09 Base 3.00 mmol/L 1.80-4.20 HCO3 28 mmol/L 20-31 O2 Sat 91 RM AIR % 95-100 pCO2 46 mm/Hg 35-45 pH 7.39 7.35-7.45 PO2 62 mm/Hg 80-95 Influenza - 11/05/18 17:09 Influenza NEGATIVE FOR A and B 0.00-0.0 0 Mycoplasma - 11/05/18 17:32 Mycoplasma Positive Negative EKG - 02/06/19 21:15 EKG Complete Cardiac Panel - 02/06/19 21:20 CK 87 U/L 26-174 CK-MB 2.5 ng/ml 0.0-9.2 Myoglobin 65.0 ng/ml 1.6-154.9 Troponin 0.041 ng/mL 0.000-0.400 BNP - 02/06/19 21:20 BNP <10.00 pg/ml 0.00-100.00 Troponin I - 02/06/19 23:30 Troponin 0.036 ng/mL 0.000-0.400 CULTURE, ANAEROBIC AND AEROBIC - 0 17:40 CULTURE, ANAEROBIC BACTERIA W/GRAM STAIN SEE NOTE NRG CULTURE, AEROBIC BACTERIA SEE NOTE NRG BMP - 11/17/19 17:15 Anion Gap 20 6-14 BUN 14 mg/dL 5-25 Calcium 9.5 mg/dL 8.3-10.4 Chloride 96 mmol/L 95-114 CO2 21 mEq/L 22-33 Creat 0.77 mg/dL 0.50-1.50 eGFR 107 mL/min/1.73m2 >59 Glucose 516 mg/dL 70-110 Osmo 296 280-295 Potassium 4.3 mmol/L 3.5-5.3 Sodium 133 mmol/L 134-148 Complete blood count (CBC) with automate d white blood cell (WBC) differential - 11/19/19 04:30 Blood leukocytes automated count (number/volume) 17.4 10*3/uL 4.3-11.0 Blood erythrocytes automated count (number/volume) 5.22 10*6/uL 4.35-5.85 Venous blood hemoglobin measurement (mass/volume) 15.3 g/dL 13.3-17.7 Blood hematocrit (volume fraction) 45 % 40-54 Automated erythrocyte mean corpuscular volume 86 [ foz_us] 80-99 Automated erythrocyte mean corpuscular h emoglobin (mass per erythrocyte) 29 pg 25-34 Automated erythrocyte mean corpuscular h emoglobin concentration measurement (mass/volume) 34 g/dL 32-36 Automated erythrocyte distribution width ratio 14. 1 % 10.0- 14.5 Automated blood platelet count (count/volume) 244 10*3/uL 130-400 Automated blood platelet mean volume measurement 10.2 [foz_us] 7.4-10.4 Automated blood neutrophils/100 leukocytes 81 % 42-75 Automated blood lymphocytes/100 leukocytes 9 % 12-44 Blood monocytes/100 leukocytes 9 % 0-12 Automated blood eosinophils/100 leukocytes 1 % 0-10 Automated blood basophils/100 leukocytes 0 % 0-10 Blood neutrophils automated count (number/volume) 14.1 10*3 1.8-7.8 Blood lymphocytes automated count (number/volume) 1.6 10*3 1.0-4.0 Blood monocytes automated count (number/volume) 1. 5 10*3 0.0-1.0 Automated eosinophil count 0.2 10*3/uL 0 .0-0.3 Automated blood basophil count (count/volume) 0.0 10*3/uL 0.0-0.1 Blood lactic acid measurement (moles/vol ume) - 11/19/19 04:30 Blood lactic acid measurement (moles/volume) 2.00 mmol/L 0.50-2.00 PT panel in platelet poor plasma by coag ulation assay - 11/19/19 04:30 Prothrombin time (PT) in platelet poor plasma by coagu lation assay 15.7 s 12.2-14.7 INR in platelet poor plasma or blood by coagulation as say 1.2 0.8-1.4 Activated partial thromboplastin time (a PTT) in platelet poor plasma bycoagulation assay - 11/19/19 04:30 Activated partial thromboplastin time (a PTT) in platelet poor plasma bycoagulation assay 34 s 24-35 Comprehensive metabolic panel - 11/19/19 04:30 Serum or plasma sodium measurement (moles/volume) 130 mmol/L 135-145 Serum or plasma potassium measurement (moles/volume) 4.2 mmol/L 3.6-5.0 Serum or plasma chloride measurement (moles/volume) 94 mmol/L 98-107 Carbon dioxide 20 mmol/L 21-32 Serum or plasma anion gap determination (moles/volume) 16 mmol/L 5-14 Serum or plasma urea nitrogen measurement (mass/volume ) 17 mg/dL 7-18 Serum or plasma creatinine measurement (mass/volume) 0.84 mg/dL 0.60-1.30 Serum or plasma urea nitrogen/creatinine mass ratio 20 NRG Serum or plasma creatinine measurement w ith calculation of estimated glomerular filtration rate > NRG Serum or plasma glucose measurement (mass/volume) 500 mg/dL 70-105 Serum or plasma calcium measurement (mass/volume) 10.3 mg/dL 8.5-10.1 Serum or plasma total bilirubin measurement (mass/volu me) 1.0 mg/dL 0.1-1.0 Serum or plasma alkaline phosphatase mojgan surement (enzymatic activity/volume) 135 U/L 40-136 Serum or plasma aspartate aminotransfera se measurement (enzymatic activity/volume) 19 U/L 5-34 Serum or plasma alanine aminotransferase measurement (enzymatic activity/volume) 22 U/L 0-55 Serum or plasma protein measurement (mass/volume) 7.3 g/dL 6.4-8.2 Serum or plasma albumin measurement (mass/volume) 3.7 g/dL 3.2-4.5 CALCIUM CORRECTED 10.5 mg/dL 8.5-10.1 Manual absolute plasma cell count - 11/08 09/29 04:30 Blood monocytes/100 leukocytes 8 % NRG Manual blood segmented neutrophils/100 leukocytes 76 % NRG Blood band neutrophils/100 leukocytes 7 % NRG Manual blood lymphocytes/100 leukocytes 8 % NRG Manual eosinophils/100 leukocytes in nose 1 % NRG Blood erythrocyte morphology finding identification NORMAL NRG Bacterial blood culture - 11/19/19 04:30 Bacterial blood culture NG NRG Bacterial blood culture - 11/19/19 04:45 Bacterial blood culture NG NRG Urine drug screening test - 11/19/19 04: 52 Urine phencyclidine detection by screening method NEGATIVE NEGATIVE Urine benzodiazepines detection by screening method NEGATIVE NEGATIVE Urine cocaine detection NEGATIVE NEGATI VE Urine amphetamines detection by screening method P OSITIVE NEGATIVE Urine methamphetamine detection by screening method POSITIVE NEGATIVE Urine cannabinoids detection by screening method N EGATIVE NEGATIVE Urine opiates detection by screening method NEGATI VE NEGATIVE Urine barbiturates detection NEGATIVE N EGATIVE Screening urine tricyclic antidepressants detection NEGATIVE NEGATIVE Urine methadone detection by screening method NEGA TIVE NEGATIVE Urine oxycodone detection NEGATIVE NEGA TIVE Urine propoxyphene detection NEGATIVE N EGATIVE Complete urinalysis with reflex to cultu re - 11/19/19 04:52 Urine color determination YELLOW NRG Urine clarity determination CLEAR NR G Urine pH measurement by test strip 6.0 5-9 Specific gravity of urine by test strip 1.010 1.016-1.022 Urine protein assay by test strip, semi-quantitative NEGATIVE NEGATIVE Urine glucose detection by automated test strip 3+ NEGATIVE Erythrocytes detection in urine sediment by light micr oscopy NEGATIVE NEGATIVE Urine ketones detection by automated test strip 2+ NEGATIVE Urine nitrite detection by test strip NEGATIVE NEGATIVE Urine total bilirubin detection by test strip NEGA TIVE NEGATIVE Urine urobilinogen measurement by automated test strip (mass/volume) 0.2 mg/dL < = 1.0 Urine leukocyte esterase detection by dipstick NEG ATIVE NEGATIVE Automated urine sediment erythrocyte cou nt by microscopy (number/high power field) NONE NRG Automated urine sediment leukocyte count by microscopy (number/high power field) NONE NRG Bacteria detection in urine sediment by light microsco py NEGATIVE NRG Squamous epithelial cells detection in u rine sediment by light microscopy 0-2 NRG Crystals detection in urine sediment by light microsco py NONE NRG Casts detection in urine sediment by light microscopy NONE NRG Mucus detection in urine sediment by light microscopy NEGATIVE NRG Complete urinalysis with reflex to culture NO NRG Capillary blood glucose measurement by g lucometer (mass/volume) - 11/19/19 06:10 Capillary blood glucose measurement by glucometer (mas s/volume) 419 mg/dL 70-110 Capillary blood glucose measurement by g lucometer (mass/volume) - 11/19/19 10:59 Capillary blood glucose measurement by glucometer (mas s/volume) 293 mg/dL 70-110 Capillary blood glucose measurement by g lucometer (mass/volume) - 11/19/19 15:54 Capillary blood glucose measurement by glucometer (mas s/volume) 252 mg/dL 70-110 Capillary blood glucose measurement by g lucometer (mass/volume) - 11/19/19 20:19 Capillary blood glucose measurement by glucometer (mas s/volume) 341 mg/dL 70-110 Complete blood count (CBC) with automate d white blood cell (WBC) differential - 11/20/19 04:17 Blood leukocytes automated count (number/volume) 13.3 10*3/uL 4.3-11.0 Blood erythrocytes automated count (number/volume) 4.52 10*6/uL 4.35-5.85 Venous blood hemoglobin measurement (mass/volume) 13.2 g/dL 13.3-17.7 Blood hematocrit (volume fraction) 40 % 40-54 Automated erythrocyte mean corpuscular volume 88 [ foz_us] 80-99 Automated erythrocyte mean corpuscular h emoglobin (mass per erythrocyte) 29 pg 25-34 Automated erythrocyte mean corpuscular h emoglobin concentration measurement (mass/volume) 33 g/dL 32-36 Automated erythrocyte distribution width ratio 14. 3 % 10.0- 14.5 Automated blood platelet count (count/volume) 233 10*3/uL 130-400 Automated blood platelet mean volume measurement 10.2 [foz_us] 7.4-10.4 Automated blood neutrophils/100 leukocytes 73 % 42-75 Automated blood lymphocytes/100 leukocytes 15 % 12-44 Blood monocytes/100 leukocytes 10 % 0-12 Automated blood eosinophils/100 leukocytes 2 % 0-10 Automated blood basophils/100 leukocytes 0 % 0-10 Blood neutrophils automated count (number/volume) 9.7 10*3 1.8-7.8 Blood lymphocytes automated count (number/volume) 2.0 10*3 1.0-4.0 Blood monocytes automated count (number/volume) 1. 3 10*3 0.0-1.0 Automated eosinophil count 0.3 10*3/uL 0 .0-0.3 Automated blood basophil count (count/volume) 0.0 10*3/uL 0.0-0.1 Comprehensive metabolic panel - 11/20/19 04:17 Serum or plasma sodium measurement (moles/volume) 138 mmol/L 135-145 Serum or plasma potassium measurement (moles/volume) 3.8 mmol/L 3.6-5.0 Serum or plasma chloride measurement (moles/volume) 105 mmol/L 98-107 Carbon dioxide 24 mmol/L 21-32 Serum or plasma anion gap determination (moles/volume) 9 mmol/L 5-14 Serum or plasma urea nitrogen measurement (mass/volume ) 12 mg/dL 7-18 Serum or plasma creatinine measurement (mass/volume) 0.65 mg/dL 0.60-1.30 Serum or plasma urea nitrogen/creatinine mass ratio 18 NRG Serum or plasma creatinine measurement w ith calculation of estimated glomerular filtration rate > NRG Serum or plasma glucose measurement (mass/volume) 157 mg/dL 70-105 Serum or plasma calcium measurement (mass/volume) 8.6 mg/dL 8.5-10.1 Serum or plasma total bilirubin measurement (mass/volu me) 0.5 mg/dL 0.1-1.0 Serum or plasma alkaline phosphatase mojgan surement (enzymatic activity/volume) 95 U/L 40-136 Serum or plasma aspartate aminotransfera se measurement (enzymatic activity/volume) 19 U/L 5-34 Serum or plasma alanine aminotransferase measurement (enzymatic activity/volume) 16 U/L 0-55 Serum or plasma protein measurement (mass/volume) 6.1 g/dL 6.4-8.2 Serum or plasma albumin measurement (mass/volume) 3.0 g/dL 3.2-4.5 CALCIUM CORRECTED 9.4 mg/dL 8.5-10.1 Capillary blood glucose measurement by g lucometer (mass/volume) - 11/20/19 04:20 Capillary blood glucose measurement by glucometer (mas s/volume) 193 mg/dL 70-110 Capillary blood glucose measurement by g lucometer (mass/volume) - 11/20/19 10:52 Capillary blood glucose measurement by glucometer (mas s/volume) 274 mg/dL 70-110 Capillary blood glucose measurement by g lucometer (mass/volume) - 11/20/19 16:14 Capillary blood glucose measurement by glucometer (mas s/volume) 303 mg/dL 70-110 Influenza virus A and B antigen detectio n - 11/20/19 17:38 FLU RESULT NEGATIVE FOR INFLUENZA A AND B ANTIGENS BY IA NRG Capillary blood glucose measurement by g lucometer (mass/volume) - 11/20/19 21:23 Capillary blood glucose measurement by glucometer (mas s/volume) 302 mg/dL 70-110 Encounters ACCT No. Visit Date/Time Discharge Status Pt. Type Provider Facility Loc./Unit Complaint [id number] 11/17/2019 16:55:00 11/17/2019 18:40 :00 [id number] 10/13/2019 04:58:00 10/13/2019 06:35 :00 DIS Outpatient [facility] ER [id number] 02/06/2019 20:58:00 02/07/2019 00:34: 00 [facility] [id number] 11/26/2018 16:27:00 11/26/2018 17:05: 00 DIS Outpatient [facility] ER [id number] 11/21/2018 01:05:00 11/21/2018 02:40: 00 DIS Outpatient LAVERN MICHAEL [facility] ER [id number] 11/12/2018 16:23:00 11/12/2018 17:22: 00 [id number] 11/05/2018 16:29:00 11/05/2018 18:18: 00 [id number] 08/28/2018 12:50:00 08/28/2018 15:15: 00 DIS Outpatient Abigail Lacy [facility] ER [id number] 07/10/2018 08:26:00 07/10/2018 10:19: 00 DIS Outpatient Abigail Lacy [id number] 08/11/2019 11:55:00 Document Registration [id number] 07/10/2018 08:40:20 Document Registration [id number] 11/10/2019 13:30:00 11/10/2019 23:59: 59 CLS [facility] [id number] 11/10/2019 13:30:00 Document Registration [id number] 04/29/2018 08:40:00 Document Registration [id number] 05/29/2013 12:23:00 05/29/2013 23:59: 59 CLS Outpatient LAUREN SIVAKUMAR DAVIS [id number] 11/28/2012 10:16:00 11/28/2012 23:59: 59 CLS Outpatient RIOS NUÑEZ MD [id number] 11/07/2012 08:02:00 11/07/2012 23:59: 59 CLS Outpatient RIOS NUÑEZ MD [id number] 10/15/2012 09:34:00 10/15/2012 23:59: 59 CLS Outpatient RIOS NUÑEZ MD [id number] 04/15/2013 10:16:00 Document Registration [id number] 03/27/2013 12:19:00 Document Registration [id number] 03/06/2013 09:16:00 Document Registration [id number] 02/27/2013 11:44:00 Document Registration [id number] 02/06/2013 10:50:00 Document Registration [id number] 01/16/2013 14:53:00 Document Registration [id number] 01/09/2013 10:45:00 Document Registration [id number] 12/31/2012 09:51:00 Document Registration [id number] 12/26/2012 07:36:00 Document Registration [id number] 12/25/2012 11:46:00 Document Registration [id number] 12/25/2012 11:46:00 Document Registration [id number] 11/13/2019 15:56:00 23:59:59 CLS Outpatient DIOR OLIVIA MD [facility] RAD TYPE 2 DIABETES [id number] 11/13/2019 13:55:00 020 23:59:59 CLS Outpatient DIOR OLIVIA MD [facility] WOUNDCARE [id number] 01/08/2018 12:36:00 18:50:00 DIS Emergency GILBERT GALARZA [facility] ER SHORTNESS OF BREATH [id number] 11/06/2017 09:56:00 018 13:38:00 DIS Outpatient OSCAR MIKE DO [facility] PREOP COLONOSCOPY/EGD [id number] 10/30/2017 08:45:00 018 23:59:59 CLS Preadmit OSCAR MIKE DO [facility] ENDO EPIGASTRIC ABD PAIN/BLO OD IN STOOLS [id number] 10/16/2017 07:57:00 018 23:59:59 CLS Outpatient MIKE OSCAR DAVIS [facility] ENDO EPIGASTRIC ABD PAIN/BLO OD IN STOOLS [id number] 10/12/2017 05:39:00 018 11:36:00 DIS Outpatient MIKE OSCAR DAVIS [facility] PREOP COLONOSCOPY/EGD [id number] 10/10/2017 12:39:00 018 14:56:00 DIS Emergency SHANE LEE MD [facility] ER UPPER ABD PAIN [id number] 10/06/2017 14:49:00 018 18:07:00 DIS Emergency MELANY QURESHI, OSMAN Quintanilla [facility] ER BLOOD IN URINE/ STOOL, HIGH BLOOD SUGAR [id number] 09/24/2017 13:22:00 018 15:41:00 DIS Emergency ABIGAIL LACY APRN [facility] ER ABD PAIN [id number] 11/03/2016 19:50:00 017 06:25:00 DIS Outpatient EDUIN FLOREZ APRN [facility] SLEEP NOCTURNAL HYPOX IA, OBSTRUCTIVE SLEEP APNEA [id number] 11/01/2016 15:18:00 017 23:59:59 CLS Outpatient EDUIN FLOREZ APRN [facility] RT ASTHMA,SOB ON E XERTION [id number] 10/08/2016 09:45:00 017 13:00:00 DIS Inpatient ROBIN ROGEL DO [facility] 4TH URI/BRONCHOSPASM [id number] 04/12/2016 08:26:00 016 12:31:00 DIS Emergency MELANY QURESHI, OSMAN Quintanilla [facility] ER LEFT SIDE FACIA L NUMBNESS/DROOPING [id number] 01/15/2015 08:15:00 015 13:15:00 DIS Inpatient MARCELA QURESHI, BOUCHRA Gibson [facility] 4TH BRONCHITIS W/HYPOXIA UN CONTROLLED HYPERGLYCEMIA [id number] 12/27/2014 20:52:00 015 22:16:00 DIS Emergency DOC PA, GILBERT Bernard [facility] ER RT EAR PAIN/BLEEDING [id number] 03/14/2014 18:57:00 014 21:23:00 DIS Emergency CHILO QURESHI, EMILY Payne [facility] ER UPPER ABD PAIN [id number] 12/06/2013 12:54:00 014 16:00:00 DIS Emergency JOVAN QURESHI, LEA Doyle [facility] ER ELEVATED BLOOD SUGAR,PA NCREATIC PAIN [id number] 02/11/2013 13:31:00 013 17:30:00 DIS Emergency JESUS QURESHI, SHANE Lundberg [facility] ER ELEVATED BLOOD SUGAR [id number] 01/24/2013 08:29:00 013 23:59:59 CLS Outpatient GONZALEZ-FLAQUITA QURESHI, DONAL Payne [facility] RAD EPIGASTRIC PAIN ,HX OF COMPLICATED PANCREATITIS [id number] 01/20/2013 18:38:00 013 09:00:00 DIS Outpatient ESTER QURESHI, ANGEL Gibson [facility] CATH CHEST PAIN [id number] 11/19/2019 05:30:[address] Inpatient ROBIN ROGEL DO [facility] 4TH CELLULITIS,SEPSIS,HYPERGLYCE JM,DMII [id number] 02/12/2019 14:13:00 Document Registration [id number] 02/12/2019 14:12:00 Document Registration [id number] 02/12/2019 14:12:00 Document Registration [id number] 02/12/2019 14:12:00 Document Registration [id number] 02/12/2019 14:12:00 Document Registration [id number] 02/12/2019 14:12:00 Document Registration [id number] 02/12/2019 14:12:00 Document Registration [id number] 02/12/2019 14:12:00 Document Registration [id number] 02/12/2019 14:12:00 Document Registration [id number] 02/12/2019 14:12:00 Document Registration [id number] 02/12/2019 14:12:00 Document Registration [id number] 10/28/2014 19:52:00 Document Registration [id number] 09/12/2012 08:22:00 Document Registration [id number] 06/24/2012 15:58:00 Document Registration [id number] 06/10/2012 10:51:00 Document Registration [id number] 06/05/2012 20:50:00 Document Registration [id number] 05/15/2012 09:28:00 Document Registration [id number] 03/16/2012 23:30:00 Document Registration [id number] 02/22/2012 20:28:00 Document Registration [id number] 08/21/2011 10:18:00 Document Registration [id number] 06/07/2011 18:53:00 Document Registration [id number] 02/16/2011 10:53:00 Document Registration [id number] 06/16/2010 07:33:00 Document Registration [id number] 02/04/2010 18:57:00 Document Registration [id number] 01/31/2010 18:27:00 Document Registration [id number] 03/21/2006 02:00:00 Document Registration [id number] 03/05/2006 19:52:00 Document Registration
[2019-11-21] MEDS: KETOROLAC 15 MG/ML VIAL IV SCH ×3 (02:13→19:34)
[2019-11-21] MEDS: PIPERACILLIN/TAZO 4.5 GM/NS 100 ML IV SCH ×6 (02:23→19:34)
[2019-11-21] MEDS: inSUlin ASPART (NovoLOG) 1 UNIT/0.01 ML (CHARGE PER UNIT) SC SCH ×4 (04:38→22:17)
[2019-11-21] MEDS: VANCOMYCIN 2000 MG/NS 500 ML IVPB IV SCH ×4 (04:39→19:34)
[2019-11-21 04:48] LABS: BASOPHILS % (AUTO) 0 % (0-10); EOSINOPHILS # (AUTO) 0.2 10^3/uL (0.0-0.3); EOSINOPHILS % (AUTO) 2 % (0-10); HEMATOCRIT 40 % (40-54); HEMOGLOBIN 12.9 G/DL (13.3-17.7); LYMPHOCYTES # (AUTO) 1.5 X 10^3 (1.0-4.0); LYMPHOCYTES % (AUTO) 13 % (12-44); MEAN CORPUSCULAR HEMOGLOBIN 29 PG (25-34); MEAN CORPUSCULAR HGB CONC 33 G/DL (32-36); MEAN CORPUSCULAR VOLUME 89 FL (80-99); MEAN PLATELET VOLUME 9.2 FL (7.4-10.4); MONOCYTES # (AUTO) 1.1 X 10^3 (0.0-1.0); MONOCYTES % (AUTO) 9 % (0-12); NEUTROPHILS # (AUTO) 9.2 X 10^3 (1.8-7.8); NEUTROPHILS % (AUTO) 76 % (42-75); PLATELET COUNT 222 10^3/uL (130-400); RED CELL DISTRIBUTION WIDTH 14.3 % (10.0-14.5); WHITE BLOOD COUNT 12.1 10^3/uL (4.3-11.0)
[2019-11-21 05:12] LABS: ALANINE AMINOTRANSFERASE 17 U/L (0-55); ALKALINE PHOSPHATASE 91 U/L (40-136); BILIRUBIN,TOTAL 0.5 MG/DL (0.1-1.0); BUN/CREATININE RATIO 23; CALCIUM 8.5 MG/DL (8.5-10.1); CARBON DIOXIDE 26 MMOL/L (21-32); CHLORIDE 103 MMOL/L (98-107); CREATININE SERUM 0.61 MG/DL (0.60-1.30); GFR ESTIMATED > 60; GLUCOSE 197 MG/DL (70-105); POTASSIUM 4.2 MMOL/L (3.6-5.0); SODIUM 138 MMOL/L (135-145); TOTAL PROTEIN 5.9 GM/DL (6.4-8.2)
--- NOTE | 2019-11-21 06:32 | Progress Note - Surgery ---
Subjective Time Seen by a Provider: 06:23 Subjective/Events-last exam Pt seen and examined, no new complaints and pain is better controlled. Review of Systems General: No Chills, No Night Sweats Pulmonary: No Dyspnea, No Cough Cardiovascular: No: Chest Pain, Palpitations Gastrointestinal: No: Nausea, Vomiting Focused Exam Lactate Level 11/19/19 04:30: Lactic Acid Level 2.00 Objective Exam Vital Signs Date Time Temp Pulse Resp B/P (MAP) Pulse Ox O2 Delivery O2 Flow Rate FiO2 11/21/19 05:34 37.5 11/21/19 04:34 37.5 11/21/19 02:13 37.5 11/21/19 02:13 37.5 11/21/19 00:30 37.5 11/21/19 00:19 37.5 11/20/19 23:50 37.2 93 20 144/68 (93) 96 Room Air 11/20/19 23:14 37.5 11/20/19 22:16 37.5 11/20/19 20:16 37.5 11/20/19 20:16 37.5 11/20/19 20:00 95 Room Air 11/20/19 19:48 37.5 11/20/19 19:46 37.5 11/20/19 18:12 37.5 11/20/19 18:09 37.5 11/20/19 17:35 38.3 11/20/19 17:14 38.3 11/20/19 16:00 37.8 94 16 136/79 (98) 95 Room Air 11/20/19 08:00 Room Air 11/20/19 07:36 37.3 87 18 156/70 (98) 93 Room Air I & O 11/21/19 07:00 Intake Total 2604 ml Output Total 3300 ml Balance -696 ml Capillary Refill : Less Than 3 SecondsLess Than 3 Seconds General Appearance: Mild Distress, Obese HEENT: PERRL/EOMI, Moist Mucous Membranes Respiratory: Chest Non Tender, Lungs Clear, Normal Breath Sounds, No Accessory Muscle Use, No Respiratory Distress Cardiovascular: Regular Rate, Rhythm, No Murmur Gastrointestinal: normal bowel sounds, non tender, soft, no organomegaly Extremity: Other (Left foot wound intact, minimal erythema) Skin: Normal Color, Warm/Dry Results Lab Laboratory Tests 11/20/19 10:52: Glucometer 274H 11/20/19 16:14: Glucometer 303H 11/20/19 21:23: Glucometer 302H 11/21/19 04:39: White Blood Count 12.1H, Red Blood Count 4.44, Hemoglobin 12.9L, Hematocrit 40, Mean Corpuscular Volume 89, Mean Corpuscular Hemoglobin 29, Mean Corpuscular Hemoglobin Concent 33, Red Cell Distribution Width 14.3, Platelet Count 222, Mean Platelet Volume 9.2, Neutrophils (%) (Auto) 76H, Lymphocytes (%) (Auto) 13, Monocytes (%) (Auto) 9, Eosinophils (%) (Auto) 2, Basophils (%) (Auto) 0, Neutrophils # (Auto) 9.2H, Lymphocytes # (Auto) 1.5, Monocytes # (Auto) 1.1H, Eosinophils # (Auto) 0.2, Basophils # (Auto) 0.0, Sodium Level 138, Potassium Level 4.2, Chloride Level 103, Carbon Dioxide Level 26, Anion Gap 9, Blood Urea Nitrogen 14, Creatinine 0.61, Estimat Glomerular Filtration Rate > 60, BUN/Creatinine Ratio 23, Glucose Level 197H, Calcium Level 8.5, Corrected Ca lcium 9.3, Total Bilirubin 0.5, Aspartate Amino Transf (AST/SGOT) 15, Alanine Aminotransferase (ALT/SGPT) 17, Alkaline Phosphatase 91, Total Protein 5.9L, Albumin 3.0L Microbiology 11/20/19 Influenza Types A,B Antigen (BECKIE) - Final, Complete 11/19/19 Blood Culture - Preliminary, Resulted No growth Assessment/Plan Assessment/Plan Assessment/Plan Cellulitis Left 2nd Toe - R/O Osteomyelitis Puncture wound Morbid obsesity Uncontrolled DM MRI read by radiologist as suspicious for Osteomyelitis. Pt would probably benefit from wound exploration and debridement; however, he is very non- compliant and may not take care of it. Another option would be to do an amputation and head off the Osteomyelitis spreading; will discuss with Dr. Peres and possibly Podiatry. Will give pt a chance to think over options as well. DM diet and good blood sugar control will be very important for healing of the wound and cellulitis. Clinical Quality Measures DVT/VTE Risk/Contraindication: Risk Factor Score Per Nursin RFS Level Per Nursing on Admit: 4+=Very High SUSSY CEJA 13, 2020 06:31
[2019-11-21 08:00] VITALS: BP 196/99
[2019-11-21] MEDS: amLODIPine 5 MG (NORVASC) TAB PO SCH (09:46)
[2019-11-21] MEDS: GABAPENTIN 300 MG (NEURONTIN) CAP PO SCH ×3 (09:46→22:07)
[2019-11-21 09:57] VITALS: BP 200/95
--- NOTE | 2019-11-21 10:49 | NUR ---
discussed antibiotics with dr lazaro, recevied order to d/c PICC line- I cancelled order and also talked to Nurse (Valarie) as well.
--- NOTE | 2019-11-21 10:56 | Progress Note - Hospitalist ---
[facility] 11/21/19 1056: Subjective HPI/CC On Admission Date Seen by Provider: Nov 21, 2019 Time Seen by Provider: 08:13 CC: Left foot cellulitis with diabetic ulcer HPI: This is a 49yoWM clinic pt of [facility] with a PMH of diabetes noncompliant with insulin regimen at home who presents with left foot pain after being seen by Dr. Kelsey last week, placed on Doxycycline and Flagyl but failed that treatment but admitted for IV antibiotics and placed on Vanc and Zosyn and Hgb A1C was noted to be 14. I did confer with Dr. Kelsey and I did increase his insulin to a sliding scale C with Levemir of 20 units twice daily. Subjective/Events-last exam Patient is still reporting pain and asking for more pain meds. Venous Doppler was neg for DVT. Surgery was consulted and there is no surgical intervention needed at this time, abx will suffice. Plan for discharge tomorrow with oral abx and close follow up with wound care. Patient's BP is markedly elevated and being medically managed. Review of Systems General: No Chills, No Night Sweats HEENT: No Eye Pain, No Ear Pain Pulmonary: No Dyspnea, No Cough Cardiovascular: No: Chest Pain, Palpitations Gastrointestinal: Constipation; No: Abdominal Pain Genitourinary: No Dysuria, No Hematuria Musculoskeletal: leg pain, foot pain Neurological: No: Change in speech, Confusion Focused Exam Lactate Level 11/19/19 04:30: Lactic Acid Level 2.00 Objective Exam Vital Signs Vital Signs Date Time Temp Pulse Resp B/P (MAP) Pulse Ox O2 Delivery O2 Flow Rate FiO2 11/21/19 09:57 200/95 (130) 11/21/19 08:00 38.4 106 20 90 Room Air Capillary Refill : Less Than 3 SecondsLess Than 3 Seconds Results/Procedures Lab Laboratory Tests 11/21/19 04:39 Patient resulted labs reviewed. Assessment/Plan Assessment and Plan Assess & Plan/Chief Complaint L foot cellulitis 2nd and 3rd toe puncture wound morbid obesity DM Hyperglycemia Peripheral neuropathy HTN, episode of HTN crisis Hx of pancreatitis Hx of tobacco abuse Fam hx of prostate cancer Plan for discharge tomorrow Send home on Zyvox Close follow up with Dr. Kelsey after discharge for continued wound care No surgical intervention required at this time Follow up with [facility] for BP medication evaluation Clinical Quality Measures DVT/VTE Risk/Contraindication: Risk Factor Score Per Nursin RFS Level Per Nursing on Admit: 4+=Very High EDILMA ROGEL DO 11/21/192041: Subjective Subjective/Events-last exam Fever continues but white count is still stable at 12 Meth use and IV drugs preclude a picc line placement for IV drugs Xyvox was sent in to [facility] Spoke with Dr. Kelsey and Dr. Palmer. No amputation or exploration because he would not take care of the wound. Will initiate PT and OT. Will initiate a bowel regimen. Review of Systems Musculoskeletal: leg pain, foot pain Objective Exam General Appearance: No Apparent Distress, WD/WN, Chronically ill Respiratory: Lungs Clear Cardiovascular: Regular Rate, Rhythm Neurologic/Psychiatric: Alert, Oriented x3, No Motor/Sensory Deficits, Normal Mood/Affect Assessment/Plan Assessment and Plan Assess & Plan/Chief Complaint Meth use IV abx BP management Procalcitonin 0.68 Prognosis poor considering non-compliance and meth use Diagnosis/Problems Diagnosis/Problems (1) Cellulitis of left foot Status: Acute (2) Methamphetamine abuse Status: Acute (3) Non compliance w medication regimen Status: Acute Supervisory-Addendum Brief Verification & Attestation Participated in pt care: history, MDM, physical Personally performed: exam, history, MDM, supervision of care Care discussed with: Medical Student Procedures: n/a Results interpretation: Verified all documentation Verification and Attestation of Medical Student E/M Service A medical student performed and documented this service in my presence. I reviewed and verified all information documented by the medical student and made modifications to such information, when appropriate. I personally performed the physical exam and medical decision making. Edilma Rogel Nov 21, 2019,20:41 [facility] Nov 21, 2019 10:56 EDILMA ROGEL DO Nov 21, 2019 20:42
[2019-11-21] MEDS ORDERED: INSU100I29 SQ (11:00)
[2019-11-21] MEDS ORDERED: GABA-488 PO (11:00)
[2019-11-21] MEDS ORDERED: LINE600T12 PO (11:00)
[2019-11-21] MEDS ORDERED: CLON0.1T PO (11:00)
[2019-11-21] MEDS ORDERED: OXYC1TAB12 PO (11:00)
[2019-11-21] MEDS ORDERED: NEED1DIS84 MC (11:00)
[2019-11-21] MEDS: FLEET ENEMA ADULT 1 EA BTL PR SCH ×2 (11:45→22:17)
[2019-11-21] MEDS: DAKIN'S 1/4 STRENGTH (0.125%) 473 ML BTL TOP SCH ×2 (12:26→22:18)
[2019-11-21] MEDS: cloNIDine 0.1 MG (CATAPRES) TAB PO SCH ×3 (12:27→22:07)
[2019-11-21] MEDS: ENOXAPARIN 40 MG/0.4 ML (LOVENOX) SYR SC SCH ×2 (12:27→22:08)
--- NOTE | 2019-11-21 13:41 | Occupational Therapy Eval ---
OT Evaluation-General/PLF Medical Diagnosis Admission Date Nov 19, 2019 at 05:30 Medical Diagnosis: L foot cellulitis; sepsis Onset Date: Nov 20, 2019 Therapy Diagnosis Therapy Diagnosis: Decreased ADL function Height/Weight Height (Feet): 5 Height (Inches): 9.00 Weight (Pounds): 389 Weight (Ounces): 0.0 Precautions Precautions/Isolations: Standard Precautions Safety Interventions: None Weight Bear Status Weight Bearing Restriction: Weight Bearing/Tolerated Location Restriction: [place] FEET Referral Physician: Edilma Gonzales DO Referral Reason: Activity Tolerance, Self Care, Evaluation/Treatment Medical History Pertinent Medical History: Arthritis, COPD, DM, GERD, HTN Additional Medical History Additional: pneumonia, sleep apnea, pancreatitis, arthritis, DM, anxiety, schizophrenia, depression Current History Pt states spring went through shoe and punctured between toes; pt experienced pain with dx of L foot cellulitis, sepsis, possible osteomyelitus Reviewed History: Yes Social History Home: Single Level Current Living Status: Spouse (and 4 children) Entry Into Home: Stairs With Railing (2 in back) ADL-Prior Level of Function SCALE: Activities may be completed with or without assistive devices. 3-Jwnrtcqojw-vfimlee completes the activity by him/herself with no assistance from a helper. 5-Set-up or Clean-up Assistance-helper sets up or cleans up; patient completes activity. [place] assists only prior to or following the activity. 4-Supervision or Touching Assistance-helper provides verbal cues and/or touching/steadying and/or contact guard assistance as patient completes activity. Assistance may be provided throughout the activity or intermittently. 3-Partial/Moderate Assistance-helper does LESS THAN HALF the effort. [place] lifts, holds or supports trunk or limbs, but provides less than half the effort. 2-Substantial/Maximal Assistance-helper does MORE THAN HALF the effort. [place] lifts or holds trunk or limbs and provides more than half the effort. 5-Bamhlcncq-wqleko does ALL the effort. Patient does none of the effort to complete the activity. Or, the assistance of 2 or more helpers is required for the patient to complete the activity. If activity was not attempted, code reason: 7-Patient Refused. 9-Not Applicable-not attempted and the patient did not perform the activity before the current illness, exacerbation or injury. 10-Not Attempted due to Environmental Limitations-(lack of equipment, weather restraints, etc.). 88-Not Attempted due to Medical Conditions or Safety Concerns. ADL PLOF Comments Pt states mod I within home ADLs (utilizes cane) Self Care: Independent Functional Cognition: Independent DME/Equipment: Shower DME/Equipment Comments Pt and OT discuss use of grab bars and sc within shower. Occupation: disabled Drive Self: Yes OT Current Status Subjective Pt seen in recliner chair with feet elevated, boot on L foot. Pt expresses minimal pain at this time within L foot. States medication/ IV has assisted in pain. Pt mentions possibility of amputation, pt understands reasoning. Pt agreeable to OT eval, though denies all ADLs. Mental Status/Objective Patient Orientation: Person, Place, Time, Situation, Normal For Age Attachments: IV Current Hand Dominance: Right Upper Extremity ROM WFL BUE Upper Extremity Coordination WFL BUE Upper Extremity Sensation Pt states on/off paresthesias (states could be positional) Upper Extremity Strength WFL BUE ADL-Treatment Eating (QC): 6 Oral Hygiene (QC): 7 Shower/Bathe Self (QC): 7 Upper Body Dressing (QC): 7 Lower Body Dressing (QC): 7 On/Off Footwear (QC): 6 (per pt report pt able to doff/ don own socks.) Toileting Hygiene (QC): 7 Other Treatments Pt seen in recliner. Pt expresses disappointment in amputation possibility, but states understanding. Pt provides med hx and states IND within ADLs within home and hospital. Pt denies that he has been to/from bathroom in acute care, states he has walked with 2WW with success/ moderate pain in LLE. Pt completes AROM of UE's WFL. Based on pt hx and provided info pt does not require OT services. OT Senior Quality Technician Goals Senior Quality Technician Goals 1=Demonstrate adherence to instructed precautions during ADL tasks. 2=Patient will verbalize/demonstrate understanding of assistive devices/modifications for ADL. 3=Patient will improve strength/tolerance for activity to enable patient to perform ADL's. OT Education/Plan Treatment Plan/Plan of Care Patient would benefit from OT for education, treatment and training to promote independence in ADL's, mobility, safety and/or upper extremity function for ADL's. LADONNA HILL OTR Nov 21, 2019 13:41
--- NOTE | 2019-11-21 13:58 | Physical Therapy Evaluation ---
PT Evaluation-General Medical Diagnosis Admission Date Nov 19, 2019 at 05:30 Medical Diagnosis: L foot cellulitis; sepsis Onset Date: Nov 20, 2019 Therapy Diagnosis Therapy Diagnosis: debility Height/Weight Height (Feet): 5 Height (Inches): 9.00 Weight (Pounds): 389 Weight (Ounces): 0.0 Precautions Precautions/Isolations: Standard Precautions Weight Bear Status Right Lower Extremity: Right Full Weight Bearing Left Lower Extremity: Left Weight Bearing/Tolerated Referral Physician: Edilma Gonzales DO Reason for Referral: Evaluation/Treatment Medical History Pertinent Medical History: Arthritis, COPD, DM, GERD, HTN Current History ambulated to ER with cane with increase c/o left foot pain after wound care Reviewed History: Yes Social History Home: Single Level Current Living Status: Spouse (and 4 children) Entry Into Home: Stairs With Railing (2 in back) Prior Prior Level of Function SCALE: Activities may be completed with or without assistive devices. 4-Bodwbeerjs-mpnmjcd completes the activity by him/herself with no assistance from a helper. 5-Set-up or Clean-up Assistance-helper sets up or cleans up; patient completes activity. [place] assists only prior to or following the activity. 4-Supervision or Touching Assistance-helper provides verbal cues and/or touching/steadying and/or contact guard assistance as patient completes a ctivity. Assistance may be provided throughout the activity or intermittently. 3-Partial/Moderate Assistance-helper does LESS THAN HALF the effort. [place] lifts, holds or supports trunk or limbs, but provides less than half the effort. 2-Substantial/Maximal Assistance-helper does MORE THAN HALF the effort. [place] lifts or holds trunk or limbs and provides more than half the effort. 6-Nsgnymthn-bdopjl does ALL the effort. Patient does none of the effort to complete the activity. Or, the assistance of 2 or more helpers is required for the patient to complete the activity. If activity was not attempted, code reason: 7-Patient Refused. 9-Not Applicable-not attempted and the patient did not perform the activity before the current illness, exacerbation or injury. 10-Not Attempted due to Environmental Limitations-(lack of equipment, weather restraints, etc.). 88-Not Attempted due to Medical Conditions or Safety Concerns. Bed Mobility: 6 Transfers (B,C,W/C): 6 Gait: 6 Prior Devices Use: Other-see list below cane PT Evaluation-Current Subjective Patient reluctantly agrees to PT. Pain Numeric Pain Scale: 7 Location: Left Location Body Site: Foot Pain Description: Acute Objective Patient Orientation: Normal For Age Attachments: IV ROM/Strength ROM Lower Extremities bilateral LE WFL Strength Lower Extremities 4/5 grossly bilateral LE Integumentary/Posture Integumentary refer to nursing notes Bowel Incontinence: No Bladder Incontinence: No Posture WFL Neuromuscular (Tone, Coordination, Reflexes) grossly intactd Sensory Vision: Functional Hearing: Functional Hand Dominance: Right Sensation Right Lower Extremit: Impaired Sensation Left Lower Extremity: Impaired Transfers Roll Left to Right (QC): 6 Sit to Lying (QC): 6 Lying to Sitting/Side of Bed(Q: 6 Sit to Stand (QC): 6 Chair/Qgs-vu-Gztro Xfer(QC): 6 Gait Does the Patient Walk?: Yes Mode of Locomotion: Walk Anticipated Mode of Locomotion: Walk Walk 10 feet (QC): 6 Walk 50 ft with 2 Turns(QC): 6 Walk 150 ft (QC): 6 Gait Assistive Device: FWW Comments/Gait Description safe and functional with FWW Balance Sitting Static: Normal Sitting Dynamic: Normal Standing Static: Normal Standing Dynamic: Normal Assessment/Needs 49 y.o. male, is currently at independent [facility] with all gross motor skills safely and does not require skilled therapy intervention. Rehab Potential: Fair Post Rehab Potential-Barriers: compliance PT Plan Treatment/Plan Treatment Plan: Discontinue PT, goals met Treatment Duration: Nov 21, 2019 Frequency: 1 time per week Patient and/or Family Agrees t: Yes Time/GCodes Time In: 1311 Time Out: 1322 Total Billed Treatment Time: 11 Total Billed Treatment 1 visit EVMod 11 min MCKAYLA RECIO PT Nov 21, 2019 13:58
--- NOTE | 2019-11-21 14:46 | Wound Care Assessment ---
Wound Care Assessment Date Seen by Provider: Nov 21, 2019 Time Seen by Provider: 14:05 Chief Complaint Infected L 2nd toe. HPI Interval Note: The patient is having less pain. The wound appears less red, but still swollen. MRI shows abnormal 2nd toe proximal phalanx, joint effusions, and possible foreign body. findings discussed with the patient and with Dr. Palmer. Inview of MRI findings will defer to surgical decision as to need for further debridement/toe amputation. 11/21/19 -- Interval Note: Has less pain in foot. Appears to be responding to IV antibiotics. Surgical intervention as per Dr. Palmer. Will be available to follow-up as out-patient. Smoking Status: Smoker Current Status [facility] Recreational Drug Use: No (denies, however he is positive methamphetamines) Alcohol Use: Past History Exam Vital Signs Date Time Temp Pulse Resp B/P (MAP) Pulse Ox O2 Delivery O2 Flow Rate FiO2 11/21/19 10:53 38.4 11/21/19 09:57 200/95 (130) 11/21/19 08:00 106 20 90 Room Air Capillary Refill : Less Than 3 SecondsLess Than 3 Seconds Results Laboratory Tests 11/20/19 16:14: Glucometer 303H 11/20/19 21:23: Glucometer 302H 11/21/19 04:37: Glucometer 254H 11/21/19 04:39: White Blood Count 12.1H, Red Blood Count 4.44, Hemoglobin 12.9L, Hematocrit 40, Mean Corpuscular Volume 89, Mean Corpuscular Hemoglobin 29, Mean Corpuscular Hemoglobin Concent 33, Red Cell Distribution Width 14.3, Platelet Count 222, Mean Platelet Volume 9.2, Neutrophils (%) (Auto) 76H, Lymphocytes (%) (Auto) 13, Monocytes (%) (Auto) 9, Eosinophils (%) (Auto) 2, Basophils (%) (Auto) 0, Neutrophils # (Auto) 9.2H, Lymphocytes # (Auto) 1.5, Monocytes # (Auto) 1.1H, Eosinophils # (Auto) 0.2, Basophils # (Auto) 0.0, Sodium Level 138, Potassium Level 4.2, Chloride Level 103, Carbon Dioxide Level 26, Anion Gap 9, Blood Urea Nitrogen 14, Creatinine 0.61, Estimat Glomerular Filtration Rate > 60, BUN/Creatinine Ratio 23, Glucose Level 197H, Calcium Level 8.5, Corrected Calcium 9.3, Total Bilirubin 0.5, Aspartate Amino Transf (AST/SGOT) 15, Alanine Aminotransferase (ALT/SGPT) 17, Alkaline Phosphatase 91, Total Protein 5.9L, Albumin 3.0L 11/21/19 11:23: Glucometer 328H 11/21/19 12:00: Lactic Acid Level 0.73, Procalcitonin 0.68H Microbiology 11/20/19 Influenza Types A,B Antigen (BECKIE) - Final, Complete 11/19/19 Urine Culture - Final, Complete Gram Pos Mixed Bacterial Vickie Strep agalactiae Group B 11/19/19 Blood Culture - Preliminary, Resulted No growth Microbiology 11/20/19 Influenza Types A,B Antigen (BECKIE) - Final, Complete DIOR OLIVIA MD Nov 21, 2019 14:46
[2019-11-21] MEDS: LACTULOSE SYRUP 10GM/15ML (ENULOSE) 30ML UDC PO SCH ×2 (15:24→22:07)
[2019-11-21] MEDS: SENNA W/DOCUSATE (SENOKOT S) TABLET PO SCH ×2 (15:25→22:07)
[2019-11-21] MEDS: polyethylene glycoL POWDER 17 GM (MIRALAX) PACK PO SCH ×2 (15:27→22:08)
[2019-11-21 16:00] VITALS: BP 128/74
[2019-11-21] MEDS: BISACODYL 10 MG SUPP (DULCOLAX) PR SCH (17:16)
[2019-11-22 00:05] VITALS: BP 131/76
[2019-11-22] MEDS: ACETAMINOPHEN 500 MG TAB (TYLENOL) PO PRN (00:35)
[2019-11-22] MEDS: PIPERACILLIN/TAZO 4.5 GM/NS 100 ML IV SCH ×4 (03:10→11:12)
[2019-11-22] MEDS: KETOROLAC 15 MG/ML VIAL IV SCH ×2 (03:10→11:11)
[2019-11-22 05:00] LABS: BASOPHILS % (AUTO) 0 % (0-10); EOSINOPHILS # (AUTO) 0.3 10^3/uL (0.0-0.3); EOSINOPHILS % (AUTO) 2 % (0-10); HEMATOCRIT 38 % (40-54); HEMOGLOBIN 12.2 G/DL (13.3-17.7); LYMPHOCYTES # (AUTO) 1.7 X 10^3 (1.0-4.0); LYMPHOCYTES % (AUTO) 15 % (12-44); MEAN CORPUSCULAR HEMOGLOBIN 30 PG (25-34); MEAN CORPUSCULAR HGB CONC 32 G/DL (32-36); MEAN CORPUSCULAR VOLUME 92 FL (80-99); MEAN PLATELET VOLUME 9.6 FL (7.4-10.4); MONOCYTES # (AUTO) 1.1 X 10^3 (0.0-1.0); MONOCYTES % (AUTO) 10 % (0-12); NEUTROPHILS # (AUTO) 8.4 X 10^3 (1.8-7.8); NEUTROPHILS % (AUTO) 73 % (42-75); PLATELET COUNT 167 10^3/uL (130-400); RED CELL DISTRIBUTION WIDTH 14.1 % (10.0-14.5); WHITE BLOOD COUNT 11.5 10^3/uL (4.3-11.0)
[2019-11-22 05:22] LABS: ALANINE AMINOTRANSFERASE 15 U/L (0-55); ALKALINE PHOSPHATASE 123 U/L (40-136); BILIRUBIN,TOTAL 0.6 MG/DL (0.1-1.0); BUN/CREATININE RATIO 19; CALCIUM 8.8 MG/DL (8.5-10.1); CARBON DIOXIDE 25 MMOL/L (21-32); CHLORIDE 103 MMOL/L (98-107); GFR ESTIMATED > 60; GLUCOSE 206 MG/DL (70-105); SODIUM 137 MMOL/L (135-145); TOTAL PROTEIN 5.8 GM/DL (6.4-8.2)
[2019-11-22] MEDS: inSUlin ASPART (NovoLOG) 1 UNIT/0.01 ML (CHARGE PER UNIT) SC SCH ×2 (06:22→11:12)
[2019-11-22 08:00] VITALS: BP 162/73
--- NOTE | 2019-11-22 08:03 | Progress Note - Surgery ---
[facility] 11/22/19 0803: Subjective Date Seen by a Provider: Nov 22, 2019 Time Seen by a Provider: 08:01 Subjective/Events-last exam Patient is alert and oriented. No acute distress. No family at bedside. Pain is 3-4/10. States it is feeling better compared to the last couple of days. Patient has felt feverish on and off since his admission, Denies chills. WBC has normalized. On admission 17.4, today 11/22/2019 it is 11.5. Eating and drinking with out issue, having bowel movements and urinating without issue. Denies the following: Chest pain, palpitations, SOB, Cough, Abdominal pain, blood in stool, increased urination frequency, pain on urination, N/V and chills, Review of Systems General: No Chills HEENT: No Visual Changes, No Eye Pain Pulmonary: No Dyspnea, No Cough Cardiovascular: No: Chest Pain, Palpitations Gastrointestinal: No: Nausea, Vomiting, Abdominal Pain Genitourinary: No Dysuria, No Frequency Musculoskeletal: foot pain (Left foot pain ) Focused Exam Lactate Level 11/21/19 12:00: Lactic Acid Level 0.73 Objective Exam Vital Signs Date Time Temp Pulse Resp B/P (MAP) Pulse Ox O2 Delivery O2 Flow Rate FiO2 11/22/19 01:05 38.0 11/22/19 00:35 38.1 11/22/19 00:05 38.1 93 18 131/76 (94) 91 Room Air 11/21/19 22:00 94 Room Air 11/21/19 16:00 37.6 92 22 128/74 (92) 94 Room Air 11/21/19 11:25 37.6 11/21/19 10:53 38.4 11/21/19 10:20 38.4 11/21/19 09:57 200/95 (130) 11/21/19 08:06 Room Air I & O 11/22/19 07:00 Intake Total 3414 ml Output Total 1950 ml Balance 1464 ml Capillary Refill : Less Than 3 SecondsLess Than 3 Seconds General Appearance: No Apparent Distress, WD/WN, Chronically ill HEENT: PERRL/EOMI, Moist Mucous Membranes Respiratory: Chest Non Tender, Lungs Clear, No Accessory Muscle Use, No Respiratory Distress, Accessory Muscle Use Cardiovascular: Regular Rate, Rhythm, No Edema Peripheral Pulses: 1+ Dorsalis Pedis (R), 1+ Left Dors-Pedis (L); 2+ Radial Pulses (R), 2+ Radial Pulses (L) Gastrointestinal: normal bowel sounds, non tender, soft, no organomegaly; No distended, No guarding Extremity: No Calf Tenderness, No Pedal Edema, Other (Patient has decreased sensory and strength in the left foot compared to right. Right is 5/5 and sensory intact. Left Leg is 4/5 and decreased sensory compared to right.) Neurologic/Psychiatric: Alert, Oriented x3, No Motor/Sensory Deficits, Normal Mood/Affect Skin: Normal Color, Warm/Dry Results Lab Laboratory Tests 11/21/19 11:23: Glucometer 328H 11/21/19 12:00: Lactic Acid Level 0.73, Procalcitonin 0.68H 11/21/19 15:58: Glucometer 487*H 11/21/19 20:43: Glucometer 348H 11/22/19 04:40: White Blood Count 11.5H, Red Blood Count 4.14L, Hemoglobin 12.2L, Hematocrit 38L , Mean Corpuscular Volume 92, Mean Corpuscular Hemoglobin 30, Mean Corpuscular Hemoglobin Concent 32, Red Cell Distribution Width 14.1, Platelet Count 167, Mean Platelet Volume 9.6, Neutrophils (%) (Auto) 73, Lymphocytes (%) (Auto) 15, Monocytes (%) (Auto) 10, Eosinophils (%) (Auto) 2, Basophils (%) (Auto) 0, Neutrophils # (Auto) 8.4H, Lymphocytes # (Auto) 1.7, Monocytes # (Auto) 1.1H, Eosinophils # (Auto) 0.3, Basophils # (Auto) 0.0, Sodium Level 137, Potassium Level 4.0, Chloride Level 103, Carbon Dioxide Level 25, Anion Gap 9, Blood Urea Nitrogen 13, Creatinine 0.70, Estimat Glomerular Filtration Rate > 60, BUN/Creatinine Ratio 19, Glucose Level 206H, Calcium Level 8.8, Corrected Calcium 9.6, Total Bilirubin 0.6, Aspartate Amino Transf (AST/SGOT) 17, Alanine Aminotransferase (ALT/SGPT) 15, Alkaline Phosphatase 123, Total Protein 5.8L, Albumin 3.0L Microbiology 11/20/19 Influenza Types A,B Antigen (BECKIE) - Final, Complete 11/19/19 Urine Culture - Final, Complete Gram Pos Mixed Bacterial Vickie Strep agalactiae Group B 11/19/19 Blood Culture - Preliminary, Resulted No growth Assessment/Plan Assessment/Plan Assessment/Plan Cellulitis Left 2nd Toe - R/O Osteomyelitis Puncture wound Morbid obsesity Uncontrolled DM MRI read by radiologist as suspicious for Osteomyelitis. Pt would probably benefit from wound exploration and debridement; however, he is very non- compliant and may not take care of it. Another option would be to do an amputation and head off the Osteomyelitis spreading; will discuss with Dr. Peres and possibly Podiatry. Will give pt a chance to think over options as well. DM diet and good blood sugar control will be very important for healing of the wound and cellulitis. Clinical Quality Measures DVT/VTE Risk/Contraindication: Risk Factor Score Per Nursin RFS Level Per Nursing on Admit: 4+=Very High GIO PERES DO 11/22/19 1107: Subjective Subjective/Events-last exam Patient feeling better today. wbc down. still with pain in left foot ,but continues to improve. blood sugar still difficult to get under control. Denies n/v fever sweats chills shortness of breath or chest pain. Objective Exam General Appearance: No Apparent Distress, Chronically ill HEENT: PERRL/EOMI, Moist Mucous Membranes Neck: Non Tender, Supple Respiratory: Chest Non Tender, No Accessory Muscle Use, No Respiratory Distress Cardiovascular: Regular Rate, Rhythm Gastrointestinal: non tender, soft, no organomegaly; No distended, No guarding Extremity: Normal Capillary Refill, Other (decreased sensation b/l. left 2nd toe improving color, small opening near 2nd toe dorsal base, no fluctuance palpable) Neurologic/Psychiatric: Alert, Oriented x3 Skin: Erythema (left 2 nd toe-improving) Lymphatic: No Adenopathy Assessment/Plan Assessment/Plan Assessment/Plan Cellulitis Left 2nd Toe - R/O Osteomyelitis Puncture wound left foot Morbid obsesity Uncontrolled DM patient discussed need to tightly control his diabetes we discussed 2nd toe and metatarsal amputation and he does not want to have amputation at this time, wants conservative measures (wound care and abx) patient can follow up with Dr. Palmer outpatient as well. instructed if any worsening should be re-evaluated at that time. Supervisory-Addendum Brief Verification & Attestation Participated in pt care: history, MDM, physical Personally performed: exam, history, MDM, supervision of care Care discussed with: Medical Student Procedures: n/a Results interpretation: Verified all documentation Verification and Attestation of Medical Student E/M Service A medical student performed and documented this service in my presence. I reviewed and verified all information documented by the medical student and made modifications to such information, when appropriate. I personally performed the physical exam and medical decision making. Gio Peres, Nov 22, 2019,11:07 [facility] Nov 22, 2019 08:03 GIO PERES DO Nov 22, 2019 11:07
[2019-11-22] MEDS: LACTULOSE SYRUP 10GM/15ML (ENULOSE) 30ML UDC PO SCH (08:09)
[2019-11-22] MEDS: polyethylene glycoL POWDER 17 GM (MIRALAX) PACK PO SCH (08:09)
[2019-11-22] MEDS: FLEET ENEMA ADULT 1 EA BTL PR SCH (08:10)
[2019-11-22] MEDS: SENNA W/DOCUSATE (SENOKOT S) TABLET PO SCH (08:10)
[2019-11-22] MEDS: BISACODYL 10 MG SUPP (DULCOLAX) PR SCH (08:10)
[2019-11-22] MEDS: GABAPENTIN 300 MG (NEURONTIN) CAP PO SCH (08:14)
[2019-11-22] MEDS: cloNIDine 0.1 MG (CATAPRES) TAB PO SCH (08:14)
[2019-11-22] MEDS: amLODIPine 5 MG (NORVASC) TAB PO SCH (08:14)
[2019-11-22] MEDS: oxyCODONE/APAP 10/325MG (PERCOCET 10) TABLET PO PRN (08:14)
--- NOTE | 2019-11-22 10:00 | NUR ---
DR. MIEK HERE AND ASSESSED PT AND DRESSING DONE BY DR. CLIFFORD STATING OK FOR DC WHEN OK WITH MED PT ANXIOUS FOR DC AND REMOVED HL. STILL AWAITING MED FOR DC.
--- NOTE | 2019-11-22 11:00 | NUR ---
DR. RITCHIE HERE TO SEE PT. 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 REFUSED SSI.
[2019-11-22] MEDS: DAKIN'S 1/4 STRENGTH (0.125%) 473 ML BTL TOP SCH (11:11)
[2019-11-22] MEDS: ENOXAPARIN 40 MG/0.4 ML (LOVENOX) SYR SC SCH (11:12)
--- NOTE | 2019-11-22 11:14 | NUR ---
REVIEWED RX WITH PT PER PT REQUEST. VERBALIZED UNDERSTANDING OF DC INST. DC'D PER WC WITH OFFICE INSPECTOR.
--- NOTE | 2019-11-22 11:37 | Discharge Summary ---
Diagnosis/Chief Complaint Date of Admission Nov 19, 2019 at 05:30 Date of Discharge November Discharge Date: Nov 22, 2019 Discharge Time: 11:00 Admission Diagnosis Assessment: Left DM foot ulcer with cellulitis DM OOC hga1c 14% Obesity Non-compliance Plan: DM management IV abx Dr Kelsey appreciated Primary Care Riaz Thao MD Discharge Diagnosis L foot cellulitis 2nd and 3rd toe-possible ostia puncture wound morbid obesity DM Hyperglycemia Peripheral neuropathy HTN, episode of HTN crisis Hx of pancreatitis Hx of tobacco abuse Fam hx of prostate cancer (1) Cellulitis of left foot Status: Acute (2) Methamphetamine abuse Status: Acute (3) Non compliance w medication regimen Status: Acute Discharge Summary Procedures/Consulations Dr. Low Palmer Discharge Physical Exam Allergies: Coded Allergies: No Known Drug Allergies (Unverified , 10/12/17) Vitals & I&Os Vital Signs Date Time Temp Pulse Resp B/P (MAP) Pulse Ox O2 Delivery O2 Flow Rate FiO2 11/22/19 08:00 37.3 93 17 162/73 (102) 92 Room Air General Appearance: Obese Respiratory: Lungs Clear, Normal Breath Sounds, No Accessory Muscle Use, No Res piratory Distress Cardiovascular: Regular Rate, Rhythm, No Gallop, No Murmur, Other (decreased pulses) Gastrointestinal: Normal Bowel Sounds, No Organomegaly, Non Tender, Soft Extremity: Pedal Edema Skin: Pallor Neurologic/Psychiatric: Alert, Oriented x3, No Motor/Sensory Deficits, Depressed Affect Hospital Course Was the Problem List Reviewed?: Yes patient was admitted and seen in consultation by both wound care and surgery. Was treated with IV antibiotics. Culture showed mixed alondra and strep. The patient is being discharged on Zyvox with close follow-up. He is been instructed on compliance with diabetes and medications. Labs (last 24 hrs) Laboratory Tests 11/21/19 12:00: Lactic Acid Level 0.73, Procalcitonin 0.68H 11/21/19 15:58: Glucometer 487*H 11/21/19 20:43: Glucometer 348H 11/22/19 04:40: White Blood Count 11.5H, Red Blood Count 4.14L, Hemoglobin 12.2L, Hematocrit 38L , Mean Corpuscular Volume 92, Mean Corpuscular Hemoglobin 30, Mean Corpuscular Hemoglobin Concent 32, Red Cell Distribution Width 14.1, Platelet Count 167, Mean Platelet Volume 9.6, Neutrophils (%) (Auto) 73, Lymphocytes (%) (Auto) 15, Monocytes (%) (Auto) 10, Eosinophils (%) (Auto) 2, Basophils (%) (Auto) 0, Neutrophils # (Auto) 8.4H, Lymphocytes # (Auto) 1.7, Monocytes # (Auto) 1.1H, Eosinophils # (Auto) 0.3, Basophils # (Auto) 0.0, Sodium Level 137, Potassium Level 4.0, Chloride Level 103, Carbon Dioxide Level 25, Anion Gap 9, Blood Urea Nitrogen 13, Creatinine 0.70, Estimat Glomerular Filtration Rate > 60, BUN/Creatinine Ratio 19, Glucose Level 206H, Calcium Level 8.8, Corrected Calcium 9.6, Total Bilirubin 0.6, Aspartate Amino Transf (AST/SGOT) 17, Alanine Aminotransferase (ALT/SGPT) 15, Alkaline Phosphatase 123, Total Protein 5.8L, Albumin 3.0L 11/22/19 10:20: Glucometer 308H 11/22/19 10:48: Glucometer 305H Microbiology 11/20/19 Influenza Types A,B Antigen (BECKIE) - Final, Complete 11/19/19 Urine Culture - Final, Complete Gram Pos Mixed Bacterial Alondra Strep agalactiae Group B 11/19/19 Blood Culture - Preliminary, Resulted No growth Patient resulted labs reviewed. Pending Labs Laboratory Tests 11/22/19 04:40: White Blood Count 11.5, Red Blood Count 4.14, Hemoglobin 12.2, Hematocrit 38, Mean Corpuscular Volume 92, Mean Corpuscular Hemoglobin 30, Mean Corpuscular Hemoglobin Concent 32, Red Cell Distribution Width 14.1, Platelet Count 167, Mean Platelet Volume 9.6, Neutrophils (%) (Auto) 73, Lymphocytes (%) (Auto) 15, Monocytes (%) (Auto) 10, Eosinophils (%) (Auto) 2, Basophils (%) (Auto) 0, Neutrophils # (Auto) 8.4, Lymphocytes # (Auto) 1.7, Monocytes # (Auto) 1.1, Eosinophils # (Auto) 0.3, Basophils # (Auto) 0.0, Sodium Level 137, Potassium Level 4.0, Chloride Level 103, Carbon Dioxide Level 25, Anion Gap 9, Blood Urea Nitrogen 13, Creatinine 0.70, Estimat Glomerular Filtration Rate > 60, BUN/Creatinine Ratio 19, Glucose Level 206, Calcium Level 8.8, Corrected Calcium 9.6, Total Bilirubin 0.6, Aspartate Amino Transf (AST/SGOT) 17, Alanine Aminotransferase (ALT/SGPT) 15, Alkaline Phosphatase 123, Total Protein 5.8, Albumin 3.0 11/22/19 10:20: Glucometer 308 11/22/19 10:48: Glucometer 305 Discussion & Recommendations Discharge Planning: <30 minutes discharge planning Discharge Home Medications: Active Scripts Active Insulin Pen Needle (Orgas, Insulin Disposable) 1 Each Dis.needle Each MC HS Levemir Flextouch (Insulin Detemir) 100 Unit/1 Ml Insuln.pen 30 Unit SQ HS Zyvox (Linezolid) 600 Mg Tablet 600 Mg PO BID Gabapentin 300 Mg Capsule 300 Mg PO TID Percocet 10-325 mg Tablet (Oxycodone HCl/Acetaminophen) 1 Each Tablet 1 Tab PO Q4H PRN Clonidine HCl 0.1 Mg Tablet 0.1 Mg PO TID Reported Zyrtec (Cetirizine HCl) 10 Mg Tablet 10 Mg PO DAILY Metformin HCl 1,000 Mg Tablet 1,000 Mg PO BID Amlodipine Besylate 10 Mg Tablet 10 Mg PO DAILY Furosemide 40 Mg Tablet 40 Mg PO DAILY Proair Hfa (Albuterol Sulfate) 1 Puff Puff 2 Puff PO Q6H PRN Cyclobenzaprine HCl 10 Mg Tablet 10 Mg PO TID PRN Trulicity (Dulaglutide) 1.5 Mg/0.5 Ml Pen.injctr 1.5 Mg SC SUNDAY Condition at discharge stable Instructions to patient/family Please see electronic discharge instructions given to patient. Clinical Quality Measures DVT/VTE Risk/Contraindication: Risk Factor Score Per Nursin RFS Level Per Nursing on Admit: 4+=Very High Copy Copies To 1: RIAZ THAO MD, KATHLEEN M MD Nov 22, 2019 11:37
--- NOTE | 2019-11-22 12:06 | NUR ---
NOTED ON DC INSTRUCTIONS THAT F/U NOT MENTIONED. CALLED [facility] AND INSTRUCTED TO CALL SUNDAY FOR APPT WITH DR. OLIVIA IN CLINIC AND TO CALL DR. CEJA'S OFFICE FOR F/U INSTRUCTED BY DR. MIKE.
== END 2019-11-22 11:14 | disposition home or self-care (01) | DRG 872 ==
LOC: EDUNIT# 02:54 → ER 02:56 → 4TH 05:30
PROVIDERS: ADMIT Internal Medicine; ATTEND Internal Medicine
DX: A41.9 Sepsis, unspecified organism (principal); L03.116 Cellulitis of left lower limb; L03.032 Cellulitis of left toe; E11.621 Type 2 diabetes mellitus with foot ulcer; L97.429 Non-pressure chronic ulcer of left heel and midfoot with unspecified severity; L97.529 Non-pressure chronic ulcer of other part of left foot with unspecified severity; Z68.42 Body mass index [BMI] 45.0-49.9, adult; E11.65 Type 2 diabetes mellitus with hyperglycemia; E11.42 Type 2 diabetes mellitus with diabetic polyneuropathy; S91.332A Puncture wound without foreign body, left foot, initial encounter; E11.628 Type 2 diabetes mellitus with other skin complications; I10 Essential (primary) hypertension; E66.01 Morbid (severe) obesity due to excess calories; J44.9 Chronic obstructive pulmonary disease, unspecified; G47.30 Sleep apnea, unspecified; J30.2 Other seasonal allergic rhinitis; K21.9 Gastro-esophageal reflux disease without esophagitis; M17.0 Bilateral primary osteoarthritis of knee; F15.10 Other stimulant abuse, uncomplicated; F41.9 Anxiety disorder, unspecified; F32.9 Major depressive disorder, single episode, unspecified; F20.9 Schizophrenia, unspecified; R60.9 Edema, unspecified; Z79.4 Long term (current) use of insulin; Z91.14 Patient's other noncompliance with medication regimen; Z87.891 Personal history of nicotine dependence; Z87.19 Personal history of other diseases of the digestive system; Z79.82 Long term (current) use of aspirin
CPT/HCPCS: 36415; 71045; 73660; 80053; 80306; 81000; 82962; 83605; 84145; 85007; 85025; 85027; 85610; 85730; 87040; 87077; 87088; 87804

== ENCOUNTER 2019-11-23 01:32 | Inpatient (IN) | payer MEDICARE ==
[~2019-11-23] VITALS: Ht 175.3 cm; Wt 136.4 kg
[~2019-11-23 01:32] MED LIST changes: +AMLO10TA7 PO; +CETI10TA21 PO; +CLIN300C11 PO; +CLON0.1T PO; +DULA1.5P2 SC; +FURO40TA4 PO; +GABA-488 PO; +INSU100I29 SQ; +LINE600T12 PO; +METF-399 PO; +METR-145 PO; +NEED1DIS84 MC; +RT-ALBUINH PO
[2019-11-23] MEDS ORDERED: LACTATED RINGERS 1,000 ML IV STA (01:56)
[2019-11-23] MEDS ORDERED: fentaNYL INJECTION 100 MCG/2 ML AMP IVP STA (01:56)
--- NOTE | 2019-11-23 02:11 | ED General ---
General Chief Complaint: Lower Extremity Stated Complaint: FEVER,DU RED HOT TO TOUCH L, L FOOT WOUND Source of Information: Patient Exam Limitations: Other (agitation and pain) History of Present Illness Date Seen by Provider: Nov 23, 2019 Time Seen by Provider: 01:38 Initial Comments Patient arrives quite agitated with complaint of left foot pain and not understanding discharge instructions done yesterday. Patient has wound to his foot that has been going on for some time now. He has been followed at wound care and ultimately required hospitalization a few days ago. He had evaluation including MRI whether was concerns about possible osteomyelitis. Patient states that they wanted to amputate his foot and then they didn't and then he was discharged and he doesn't understand what going on. States that the pain is quite bad. On initial questioning of the reduction and asking about pain, patient became quite agitated and started taking stuff off and stated that he was in a take this here and wasn't in and be treated like that and was quite irritable. He was threatening to call everybody supervisor prep and make a complaint and leave this hospital. After repeated reassurance and verbal calming measures, patient finally calmed down and started answering questions. He admits that he's had a lot of pain to his foot and has had intermittent fevers. Does admit that he did not understand the discharge instructions or medication regimen. He has taken one of his Percocet 10/325 tablets for pain a couple hours ago. They have not been able to get the antibiotics from the pharmacy yet which appears to be Zyvox. She does follow with [facility] and his PCP is Dr. Alvarenga. He did report port that he used methamphetamine after discharge due to pain. See previous ED provider note and hospitalization records for further information regarding initial injury. Timing/Duration: Getting Worse, Other (2 weeks) Severity: Severe Modifying Factors: worse with Movement Associated Systoms: No Chest Pain, No Cough; Fever/Chills; No Nausea/Vomiting, No Shortness of Air, No Weakness Allergies and Home Medications Allergies Coded Allergies: No Known Drug Allergies (Unverified , 10/12/17) Home Medications Albuterol Sulfate 1 Puff Puff, 2 PUFF PO Q6H PRN for SHORTNESS OF BREATH, (Reported) Amlodipine Besylate 10 Mg Tablet, 10 MG PO DAILY, (Reported) Cetirizine HCl 10 Mg Tablet, 10 MG PO DAILY, (Reported) Clonidine HCl 0.1 Mg Tablet, 0.1 MG PO TID Prescribed by: ROBIN ROGEL on 11/21/191099 Cyclobenzaprine HCl 10 Mg Tablet, 10 MG PO TID PRN for MUSCLE SPASMS, (Reported) Dulaglutide 1.5 Mg/0.5 Ml Pen.injctr, 1.5 MG SC SUNDAY, (Reported) Furosemide 40 Mg Tablet, 40 MG PO DAILY, (Reported) Gabapentin 300 Mg Capsule, 300 MG PO TID Prescribed by: ROBIN ROGEL on 11/21/191099 Insulin Detemir 100 Unit/1 Ml Insuln.pen, 30 UNIT SQ HS Prescribed by: ROBIN ROGEL on 11/21/191099 Linezolid 600 Mg Tablet, 600 MG PO BID Prescribed by: ROBIN ROGEL on 11/21/191099 Metformin HCl 1,000 Mg Tablet, 1,000 MG PO BID, (Reported) Oxycodone HCl/Acetaminophen 1 Each Tablet, 1 TAB PO Q4H PRN for PAIN-MODERATE (5-7) Prescribed by: ROBIN ROGEL on 11/21/191099 Patient Home Medication List Home Medication List Reviewed: Yes Review of Systems Review of Systems Constitutional: see HPI, chills, fever EENTM: no symptoms reported Respiratory: no symptoms reported Cardiovascular: no symptoms reported Gastrointestinal: No abdominal pain, No nausea, No vomiting Genitourinary: no symptoms reported Musculoskeletal: joint pain, muscle pain, muscle stiffness Skin: change in color, lesions Psychiatric/Neurological: Anxiety, Emotional Problems; Denies Weakness Hematologic/Lymphatic: No Symptoms Reported All Other Systems Reviewed Negative Unless Noted: Yes Past Sdzhmcy-Irufjw-Wryohy Hx Past Med/Social Hx: Reviewed Nursing Past Med/Soc Hx Patient Social History Alcohol Use: Denies Use Recreational Drug Use: Yes (methamphetamine) Smoking Status: Former Smoker Type Used: Cigarettes Former Smoker, Quit: Oct 08, 1996 Recent Foreign Travel: No Contact w/Someone Who Travel: No Recent Hopitalizations: No Immunizations Up To Date Tetanus Booster (TDap): Unknown PED Vaccines UTD: No Date of Pneumonia Vaccine: Oct 08, 2010 Seasonal Allergies Seasonal Allergies: Yes Past Medical History Surgeries: Yes (PANCREAS STENT-HAS BEEN REMOVED, R KNEE X2, L KNEE ) Abdominal, Gallbladder, Orthopedic, Tonsillectomy Respiratory: Yes Sleep Apnea Currently Using CPAP: No Currently Using BIPAP: No Cardiac: Yes Chronic Edema/Swelling, Hypertension Neurological: No Reproductive Disorders: No Sexually Transmitted Disease: No HIV/AIDS: No Genitourinary: No Gastrointestinal: Yes (BLOOD IN STOOLS) Gastroesophageal Reflux, Chronic Constipation, Pancreatitis, Chronic Diarrhea Musculoskeletal: Yes (BOTH KNEES) Arthritis Endocrine: Yes (Morbid obesity) Diabetes, Insulin dep HEENT: No Loss of Vision: Bilateral Hearing Impairment: Denies Cancer: No Psychosocial: Yes Depression Integumentary: No Blood Disorders: No Adverse Reaction/Blood Tranf: No (N/A) Family Medical History Reviewed Nursing Family Hx Alzheimer's disease 19 MOTHER Arthritis 19 FATHER Cardiovascular disease 19 FATHER Dementia 19 MOTHER Hypertension 19 FATHER Myocardial infarction G8 BROTHER Parkinson's disease 19 MOTHER Prostate cancer 19 FATHER Heart Disease, CAD Under 55 Years Old, Hypertension, Vascular Disease, Other Conditions/Hx Physical Exam-Suspected Sepsis Physical Exam Vital Signs Vital Signs - First Documented 11/23/19 11/23/19 01:40 02:14 Temp 36.3 Pulse 105 Resp 24 B/P (MAP) 151/109 (123) Pulse Ox 90 O2 Delivery Room Air O2 Flow Rate 2.00 Capillary Refill : Height, Weight, BMI Height: 5'9.00" Weight: 389lbs. 0.0oz. [id number]; 43.47 BMI Method:Stated General Appearance: No Apparent Distress, WD/WN HEENT: PERRL/EOMI, Pharynx Normal Neck: Non Tender, Supple Respiratory: Lungs Clear, Normal Breath Sounds Cardiovascular: No Murmur, Tachycardia Gastrointestinal: Non Tender, Soft Back: Normal Inspection, No CVA Tenderness, No Vertebral Tenderness Extremity: Normal Range of Motion, Non Tender Neurologic/Psychiatric: Alert, Oriented x3 Skin: ulcerations (wounds to the bottom of the left foot between the second and third toe.), other (erythema extends from the distal foot up to mid tibia region. Erythematous areas are hot and swollen as well. Tender to touch across the foot overall but most between the second and third metatarsal on the dorsum and plantar surface also has blackened area at the heel.) Focused Exam Lactate Level 11/23/19 02:00: Lactic Acid Level 1.83 Lactic Acid Level Laboratory Tests Test 11/23/19 02:00 Lactic Acid Level 1.83 MMOL/L (0.50-2.00) Progress/Results/Core Measures Suspected Sepsis SIRS Temperature: Pulse: Respiratory Rate: Laboratory Tests 11/23/19 02:00: White Blood Count 14.7H Blood Pressure / Mean: 11/23/19 02:00: Lactic Acid Level 1.83 Laboratory Tests 11/23/19 02:00: Creatinine 0.86, INR Comment 1.1, Platelet Count 278, Total Bilirubin 0.7 Results/Orders Lab Results Laboratory Tests Test 11/23/19 02:00 Range/Units White Blood Count 14.7 H 4.3-11.0 10^3/uL Red Blood Count 4.48 4.35-5.85 10^6/uL Hemoglobin 13.1 L 13.3-17.7 G/DL Hematocrit 40 40-54 % Mean Corpuscular Volume 88 80-99 FL Mean Corpuscular Hemoglobin 29 25-34 PG Mean Corpuscular Hemoglobin Concent 33 32-36 G/DL Red Cell Distribution Width 14.0 10.0-14.5 % Platelet Count 278 130-400 10^3/uL Mean Platelet Volume 9.5 7.4-10.4 FL Neutrophils (%) (Auto) 78 H 42-75 % Lymphocytes (%) (Auto) 11 L 12-44 % Monocytes (%) (Auto) 9 0-12 % Eosinophils (%) (Auto) 2 0-10 % Basophils (%) (Auto) 0 0-10 % Neutrophils # (Auto) 11.4 H 1.8-7.8 X 10^3 Lymphocytes # (Auto) 1.7 1.0-4.0 X 10^3 Monocytes # (Auto) 1.3 H 0.0-1.0 X 10^3 Eosinophils # (Auto) 0.2 0.0-0.3 10^3/uL Basophils # (Auto) 0.0 0.0-0.1 10^3/uL Neutrophils % (Manual) 79 % Lymphocytes % (Manual) 11 % Monocytes % (Manual) 8 % Eosinophils % (Manual) 1 % Band Neutrophils 1 % Blood Morphology Comment NORMAL Prothrombin Time 14.5 12.2-14.7 SEC INR Comment 1.1 0.8-1.4 Activated Partial Thromboplast Time 36 H 24-35 SEC Sodium Level 135 135-145 MMOL/L Potassium Level 4.1 3.6-5.0 MMOL/L Chloride Level 97 L 98-107 MMOL/L Carbon Dioxide Level 27 21-32 MMOL/L Anion Gap 11 5-14 MMOL/L Blood Urea Nitrogen 8 7-18 MG/DL Creatinine 0.86 0.60-1.30 MG/DL Estimat Glomerular Filtration Rate > 60 BUN/Creatinine Ratio 9 Glucose Level 380 H 70-105 MG/DL Lactic Acid Level 1.83 0.50-2.00 MMOL/L Calcium Level 9.3 8.5-10.1 MG/DL Corrected Calcium 9.9 8.5-10.1 MG/DL Total Bilirubin 0.7 0.1-1.0 MG/DL Aspartate Amino Transf (AST/SGOT) 15 5-34 U/L Alanine Aminotransferase (ALT/SGPT) 15 0-55 U/L Alkaline Phosphatase 133 40-136 U/L C-Reactive Protein High Sensitivity 14.05 H 0.00-0.50 MG/DL Total Protein 6.8 6.4-8.2 GM/DL Albumin 3.3 3.2-4.5 GM/DL Procalcitonin 1.10 H <0.10 NG/ML My Orders Orders - SHANE LEE MD Cbc With Automated Diff (11/23/19:56) Comprehensive Metabolic Panel (11/23/19:56) Blood Culture (11/23/19:56) Sputum Culture (11/23/19:56) Urinalysis (11/23/19:56) Urine Culture (11/23/19:56) Protime With Inr (11/23/19:56) Partial Thromboplastin Time (11/23/19:56) Chest 1 View, Ap/Pa Only (11/23/19:56) Ed Iv/Invasive Line Start (11/23/19:56) Vital Signs Adult Sepsis Patie Q15M (11/23/19:56) O2 (11/23/19:56) Remove Rings In Anticipation O (11/23/19:56) Lactic Acid Analyzer (11/23/19:56) Fentanyl Injection (Sublimaze Injection (11/23/19:56) Lactated Ringers (Lr 1000 Ml Iv Solution (11/23/19:56) Hs C Reactive Protein (11/23/19 02:04) Procalcitonin (Pct) (11/23/19 02:04) Manual Differential (11/23/19 02:00) Hydromorphone Injection (Dilaudid Inject (11/23/19 02:30) Hydromorphone Injection (Dilaudid Inject (11/23/19 02:23) Piperacillin Sodium/Tazobactam (Zosyn Vi (11/23/19 03:00) Vancomycin Injection (Vancomycin Injecti (11/23/19 03:00) Medications Given in ED Current Medications Medications Dose Ordered Sig/Shadia Route Start Time Stop Time Status Last Admin Dose Admin Hydromorphone HCl 1 mg ONCE ONCE IV 11/23/19 02:30 11/23/19 02:31 DC 11/23/19 02:33 1 MG Piperacillin Sod/ Tazobactam Sod 4.5 gm/Sodium Chloride 100 ml @ 200 mls/hr ONCE ONCE IV 11/23/19 03:00 11/23/19 03:29 11/23/19 03:06 200 MLS/HR Vital Signs/I&O 11/23/19 11/23/19 11/23/19 01:40 02:14 02:14 Temp 36.3 36.3 Pulse 105 108 Resp 24 24 B/P (MAP) 151/109 (123) 151/109 Pulse Ox 90 95 O2 Delivery Room Air Room Air Nasal Cannula O2 Flow Rate 2.00 Capillary Refill : Progress Note : Progress Note Seen and evaluated after patient calmed down. IV, labs, blood cultures and lactic acid ordered. Wound dressing taken down and wound evaluated. LR 1 L bolus and fentanyl 75 g IV ordered as starting point for pain control. Hospitalization notes reviewed including discharge instructions, ED note, and progress notes from from primary care, surgery consult and wound care consult teams. Monitor patient. 0310: I have discussed with the patient and his significant other regarding the current case and the need for admission. We did discuss the importance of abstaining from methamphetamine and he states he quit. I did give him some of the local community resources for programs to help with this and he is already within the [facility] and they're addiction treatment services would be beneficial as well. I did discuss the case with Dr. Gabriel, on-call for [facility]. She will admit the patient, inpatient status. We will initiate Zosyn and vancomycin to start given the rapid return of symptoms since discharge. This is likely a result of not being able to be on the antibiotics that were prescribed. I verified with the patient and family regarding the prescription and they state that [facility] didn't receive the prescription although it looks like they have. It may be that they just simply did not have the Zyvox available at that time. Either way, patient has failed outpatient therapy and will need more intensive therapy. The significant other was unaware of the patient's choice for conservative management and I did inform her of his decision per notes and that helped her understand the situation a little better. Apparently they had a furniture shipment coming in yesterday which is maybe why they wanted to leave so quickly yesterday. All findings and can service discussed with patient and family and they are in agreement with admission. He is much more comfortable pain-billingsley currently and is resting peacefully. Admit, inpatient status. Wound had Xeroform placed over topically and covered with gauze and Kerlix. Diagnostic Imaging Diagonstic Imaging: Xray Plain Films/CT/US/NM/MRI: chest Comments No acute findings. Poor expansion when compared to previous films. Departure Communication (Admissions) Time/Spoke to Admitting Phy: 03:10 Impression Primary Impression: Cellulitis of left lower extremity Additional Impressions: Diabetic foot infection Hyperglycemia due to type 2 diabetes mellitus Qualified Codes: E11.65 - Type 2 diabetes mellitus with hyperglycemia; Z79.4 - retirement (current) use of insulin Disposition: ADMITTED INPATIENT Condition: Stable Admissions Decision to Admit Reason: Admit from ER (General) Decision to Admit/Date: Nov 23, 2019 Time/Decision to Admit Time: 03:10 Departure-Patient Inst. Referrals: [facility] – [place] (PCP) Primary Care Physician RIAZ ALVARENGA MD (Family) Primary Care Physician SHANE LEE MD Nov 23, 2019 02:11
[2019-11-23 02:13] LABS: BASOPHILS % (AUTO) 0 % (0-10); EOSINOPHILS # (AUTO) 0.2 10^3/uL (0.0-0.3); EOSINOPHILS % (AUTO) 2 % (0-10); HEMATOCRIT 40 % (40-54); HEMOGLOBIN 13.1 G/DL (13.3-17.7); LYMPHOCYTES # (AUTO) 1.7 X 10^3 (1.0-4.0); LYMPHOCYTES % (AUTO) 11 % (12-44); MEAN CORPUSCULAR HEMOGLOBIN 29 PG (25-34); MEAN CORPUSCULAR HGB CONC 33 G/DL (32-36); MEAN CORPUSCULAR VOLUME 88 FL (80-99); MEAN PLATELET VOLUME 9.5 FL (7.4-10.4); MONOCYTES # (AUTO) 1.3 X 10^3 (0.0-1.0); MONOCYTES % (AUTO) 9 % (0-12); NEUTROPHILS # (AUTO) 11.4 X 10^3 (1.8-7.8); NEUTROPHILS % (AUTO) 78 % (42-75); PLATELET COUNT 278 10^3/uL (130-400); WHITE BLOOD COUNT 14.7 10^3/uL (4.3-11.0)
[2019-11-23] MEDS ORDERED: HYDROmorphone 2 MG/ML VIAL (DILAUDID) ONE (02:23)
[2019-11-23 02:24] LABS: INR 1.1 (0.8-1.4); PROTHROMBIN TIME PATIENT 14.5 SEC (12.2-14.7)
[2019-11-23] MEDS ORDERED: HYDROmorphone 2 MG/ML VIAL (DILAUDID) IV ONE (02:30)
[2019-11-23 02:33] LABS: ALANINE AMINOTRANSFERASE 15 U/L (0-55); ALBUMIN 3.3 GM/DL (3.2-4.5); ALKALINE PHOSPHATASE 133 U/L (40-136); BILIRUBIN,TOTAL 0.7 MG/DL (0.1-1.0); BUN/CREATININE RATIO 9; CALCIUM 9.3 MG/DL (8.5-10.1); CARBON DIOXIDE 27 MMOL/L (21-32); CHLORIDE 97 MMOL/L (98-107); CREATININE SERUM 0.86 MG/DL (0.60-1.30); GFR ESTIMATED > 60; GLUCOSE 380 MG/DL (70-105); POTASSIUM 4.1 MMOL/L (3.6-5.0); SODIUM 135 MMOL/L (135-145); TOTAL PROTEIN 6.8 GM/DL (6.4-8.2)
[2019-11-23 02:51] LABS: BAND NEUTROPHILS 1 %; EOSINOPHILS % (MANUAL) 1 %; LYMPHOCYTES % (MANUAL) 11 %; MONOCYTES % (MANUAL) 8 %; NEUTROPHILS % (MANUAL) 79 %; RBC MORPH NORMAL
[2019-11-23] MEDS ORDERED: PIPERACILLIN SODIUM/TAZOBACTAM 4.5 GM in NS (IVPB) 100 ML IV ONE (03:00)
[2019-11-23 03:24] LABS: BILIRUBIN,URINE NEGATIVE (NEGATIVE); CLARITY,URINE SL CLOUDY; COLOR,URINE YELLOW; GLUCOSE, URINE (UA) 3+ (NEGATIVE); KETONES,URINE NEGATIVE (NEGATIVE); LEUKOCYTE ESTERASE ,URINE NEGATIVE (NEGATIVE); NITRITE,URINE NEGATIVE (NEGATIVE); PROTEIN,URINE NEGATIVE (NEGATIVE)
[2019-11-23 03:34] LABS: BACTERIA,URINE NEGATIVE /HPF; SQUAMOUS EPITHELIAL CELL,UR RARE /HPF
[2019-11-23] MEDS: VANCOMYCIN INJECTION 1,000 MG in NS (IVPB) 250 ML IV SCH ×3 (03:37→04:08)
[2019-11-23 03:43] LABS: AMPHETAMINE SCREEN, URINE POSITIVE (NEGATIVE); BARBITURATE SCREEN URINE NEGATIVE (NEGATIVE); BENZODIAZEPINES SCREEN URINE NEGATIVE (NEGATIVE); CANNABINOID SCREEN, URINE NEGATIVE (NEGATIVE); COCAINE SCREEN URINE NEGATIVE (NEGATIVE); METHADONE STAT NEGATIVE (NEGATIVE); METHAMPHETAMINE SCREEN URINE S POSITIVE (NEGATIVE); OPIATE SCREEN URINE POSITIVE (NEGATIVE); OXYCODONE STAT POSITIVE (NEGATIVE); PROPOXYPHENE STAT NEGATIVE (NEGATIVE); TRICYCLIC ANTIDEPRESSANTS SCRE NEGATIVE (NEGATIVE)
[2019-11-23 04:15] VITALS: BP 152/84
--- NOTE | 2019-11-23 04:15 | NUR ---
SUSSY GAETS admitted to room 409-1, with an admitting diagnosis of , on 11/23/19 from ED via , accompanied by STAFF AND .SUSSY GATES introduced to surroundings, call light, bed controls, phone, TV, temperature control, lights, meal times, smoking policy, visitor policy, side rail policy, bathrooms and showers. Patient Rights given to patient in the handbook. SUSSY GATES verbalizes understanding that [facility] is not responsible for the loss or damage to any personal effects or valuables that are kept in the patients posession during their hospitalization.
[2019-11-23] MEDS ORDERED: HYDROmorphone 2 MG/ML VIAL (DILAUDID) IV PRN (04:30)
[2019-11-23] MEDS: LACTATED RINGERS 1,000 ML IV SCH (04:52)
--- NOTE | 2019-11-23 05:00 | NUR ---
DR RITCHIE NOTIFIED OF PT DVT SCORE OF 7.
[2019-11-23 05:11] VITALS: BP 152/84
[2019-11-23] MEDS ORDERED: inSUlin ASPART (NovoLOG) 1 UNIT/0.01 ML (CHARGE PER UNIT) ONE (05:56)
[2019-11-23] MEDS: inSUlin ASPART (NovoLOG) 1 UNIT/0.01 ML (CHARGE PER UNIT) SC SCH ×4 (06:04→20:46)
[2019-11-23] MEDS: ACETAMINOPHEN 325 MG TABLET PO PRN (06:05)
--- NOTE | 2019-11-23 06:46 | Diagnostic Imaging Report ---
INDICATION: Dyspnea and fever. COMPARISON: 11/19/2019. DISCUSSION: Single portable upright view of the chest was obtained. Low lung volumes. Elevated right hemidiaphragm. Stable normal heart size. No new consolidation, pleural fluid, or pneumothorax. No osseous abnormality. IMPRESSION: 1. Low lung volumes with no acute abnormality identified. Dictated by: Dictated on workstation # [id number]
[2019-11-23 08:00] VITALS: BP 158/72
--- NOTE | 2019-11-23 08:00 | NUR ---
REQUESTING ADMINISTRATION FOR CONCERNS. NURSING LSW NOTIFIED.
--- NOTE | 2019-11-23 08:05 | NUR ---
DR RITCHIE ORDERED 40 MG LOVENOX BID.
[2019-11-23] MEDS ORDERED: RT-ALBUTEROL SULF 2.5 MG/3 ML PRE-MIX VIAL IH PRN (09:30)
[2019-11-23] MEDS ORDERED: VANCOMYCIN INJECTION 0.1 MG in NS (IVPB) 250 ML IV SCH (09:30)
--- NOTE | 2019-11-23 09:40 | NUR ---
PERCOCET PO FOR C/O PAIN LEFT FOOT.
[2019-11-23] MEDS: ENOXAPARIN 40 MG/0.4 ML (LOVENOX) SYR SC SCH ×2 (09:42→20:48)
[2019-11-23] MEDS: amLODIPine 10 MG (NORVASC) TAB PO SCH (09:42)
[2019-11-23] MEDS: oxyCODONE/APAP 10/325MG (PERCOCET 10) TABLET PO PRN ×3 (09:42→22:04)
[2019-11-23] MEDS: FUROSEMIDE 40 MG (LASIX) TAB PO SCH (09:42)
--- NOTE | 2019-11-23 09:52 | NUR ---
CR 0.86; CR CL > 80; WT 133.6 KG; VANCO 2000 MG IV GIVEN IN ER; CONTINUE WITH VANCO 2000 MG IV Q12H; TROUGH AFTER 3RD DOSE
[2019-11-23] MEDS ORDERED: inSUlin ASPART (NovoLOG) 1 UNIT/0.01 ML (CHARGE PER UNIT) SC SCH (10:00)
--- NOTE | 2019-11-23 11:00 | NUR ---
[facility] CALLED PER DR. RITCHIE REQUEST. PHARMACIST CRISTAL REPORTS ZYVOX WAS NOT FILLED FOR PT IT IS AWAITING PA. DR. RITCHIE NOTIFIED.
[2019-11-23 12:00] VITALS: BP 156/74
--- NOTE | 2019-11-23 13:05 | NUR ---
DRESSING LEFT FOOT REMOVED BY DR. MIKE. NOTIFIED AND DRY KERLIX DRESSING X1 ORDERED. DRESSING APPLIED.
--- NOTE | 2019-11-23 13:15 | History & Physical-Hospitalist ---
History of Present Illness HPI/Chief Complaint This is a 49-year-old white male who was discharged yesterday with a diabetic foot ulcer. He was unable to get his Zyvox because it needed a prior authorization. Neither the pharmacy The patient contacted us here at the hospital. His leg started getting more painful and presented back to the emergency room after discharge with complaints of increased foot pain fever and swelling. The foot had progressed with incr eased erythema now appearance of abscess formation. The patient had not wanted to pursue surgery on the previous admission. At this time Dr. Peres continues to recommend surgery and the patient acquiesces. The patient has been very angry and outspoken about his displeasure. They said that they did not understand instructions yesterday although the nurse through everything in detail with the patient and the and was satisfied that they understood all the directions. The patient was to follow-up with Dr. Kelsey'char as an outpatient for wound care. At the time of my interview the patient lays in bed and will not talk to me and the history is obtained from his . At this time she says that they understand much better about what transpired with the expectations were. The patient had gone home and used methamphetamine yesterday after discharge. Source: family Date Seen 11/23/19 Time Seen by a Provider: 12:30 Attending Physician Estella Gabriel MD [facility] Referring Physician Date of Admission Nov 23, 2019 at 03:16 Home Medications & Allergies Home Medications Reviewed patient Home Medication Reconciliation performed by pharmacy medication reconciliations compliance field technician and/or nursing. Patients Allergies have been reviewed. Allergies Allergies Coded Allergies No Known Drug Allergies (Unverified10/12/17) Past Romtbwm-Fcchgh-Vxdhbp Hx Past Med/Social Hx: Reviewed Nursing Past Med/Soc Hx Patient Social History Marrital Status: Employed/Student: unemployed Alcohol Use: Denies Use Number of Drinks Today: 0 Recreational Drug Use: Yes (methamphetamine) Drug of Choice: METH Smoking Status: Former Smoker Former Smoker, Quit: Oct 08, 1996 Type Used: Cigarettes Recent Foreign Travel: No Contact w/other who traveled: No Recent Hopitalizations: No Recent Infectious Disease Expo: No Immunizations Up To Date Tetanus Booster (TDap): Unknown Pediatric: No Date of Pneumonia Vaccine: Mar 05, 2011 Date of Influenza Vaccine: Nov 21, 2019 Seasonal Allergies Seasonal Allergies: Yes Past Medical History Surgeries: Abdominal, Gallbladder, Orthopedic, Tonsillectomy unknown procedure to L foot between 2nd and 3rd toe Respiratory: COPD, Pneumonia, Sleep Apnea Currently Using CPAP: No Currently Using BIPAP: No Cardiac: Chronic Edema/Swelling, Hypertension Reproductive: No Sexually Transmitted Disease: No HIV/AIDS: No Gastrointestinal: Gastroesophageal Reflux, Chronic Constipation, Pancreatitis, Chronic Diarrhea Musculoskeletal: Arthritis Endocrine: Diabetes, Insulin dep Loss of Vision: Bilateral Hearing Impairment: Denies Psychosocial: Depression History of Blood Disorders: No Adverse Reaction to Blood Sidhu: No (N/A) Family History Reviewed Nursing Family Hx Alzheimer's disease 19 MOTHER Arthritis 19 FATHER Cardiovascular disease 19 FATHER Dementia 19 MOTHER Hypertension 19 FATHER Myocardial infarction G8 BROTHER Parkinson's disease 19 MOTHER Prostate cancer 19 FATHER No Family History of: AIDS Abdominal aortic aneurysm [place]'s disease Alcoholism Aphasia Asthma Cancer of mouth Cataracts Colon cancer Completed stroke Congenital disease Congenital heart disease Coronary thrombosis Cystic fibrosis Deafness or hearing loss Diabetes mellitus Drug abuse Dysphasia Fibrocystic disease of breast Gastroenteritis Glaucoma Headache disorder Hypercholesterolemia Infertility Kidney disease Neoplasm Not obtainable due to adoption Osteoporosis Psychosocial problem Respiratory disorder Seizure disorder Severe allergy Thyroid disease Tuberculosis Visual disorder Heart Disease, CAD Under 55 Years Old, Hypertension, Vascular Disease, Other Conditions/Hx Review of Systems Constitutional: see HPI Musculoskeletal: other Physical Exam Physical Exam Vital Signs Vital Signs - First Documented 11/23/19 11/23/19 01:40 02:14 Temp 36.3 Pulse 105 Resp 24 B/P (MAP) 151/109 (123) Pulse Ox 90 O2 Delivery Room Air O2 Flow Rate 2.00 Capillary Refill : Less Than 3 Seconds Height, Weight, BMI Height: 5'9.00" Weight: 389lbs. 0.0oz. 176.008262bx; 43.23 BMI Method:Stated General Appearance: Chronically ill HEENT: Normal ENT Inspection Respiratory: Lungs Clear Cardiovascular: Regular Rate, Rhythm, No Gallop, No Murmur Extremity: Pedal Edema, Other (Left foot with erythema and evidence of abscess formation) Neurologic/Psychiatric: Depressed Affect Skin: Erythema Results Results/Procedures Labs Laboratory Tests 11/23/19 02:00 Patient resulted labs reviewed. Assessment/Plan Admission Diagnosis Sepsis secondary to diabetic foot ulcer Type II diabetes with noncompliance Methamphetamine use Morbid obesity Plan for surgical consultation and my understanding that there 20 proceed with amputation at this juncture Admission Status: Inpatient Order (span 2 midnights) Reason for Inpatient Admission: Sepsis with a source of infection and multiple comorbidities requiring surgery Clinical Quality Measures DVT/VTE Risk/Contraindication: Risk Factor Score Per Nursin RFS Level Per Nursing on Admit: 4+=Very High ESTELLA GABRIEL MD Nov 23, 2019 13:15
[2019-11-23] MEDS: cloNIDine 0.1 MG (CATAPRES) TAB PO SCH ×2 (13:42→20:48)
[2019-11-23] MEDS: GABAPENTIN 300 MG (NEURONTIN) CAP PO SCH ×2 (13:42→20:47)
[2019-11-23] MEDS: VANCOMYCIN 2000 MG/NS 500 ML IVPB IV SCH ×2 (13:42)
--- NOTE | 2019-11-23 14:00 | NUR ---
IV RT AC LEAKING. REMOVED. LOUISE NURSING MERIT SYSTEM DIRECTOR HERE TO ATTEMPT IV. UNABLE TO GET. ANESTHESIA NOTIFIED.
--- NOTE | 2019-11-23 14:19 | Consultation - Surgery ---
AURE PELLETIER MEDICAL STUDENT 11/23/19 1419: History of Present Illness History of Present Illness Patient Consulted On(roro/time) 11/23/19 14:07 Date Seen by Provider: Nov 23, 2019 Time Seen by Provider: 11:30 History of Present Illness Walter Coker is a 49 y/o male who presents to [facility] for increased foot pain, fever and swelling. Pt had been discharged yesterday with diabetic foot ulcer. On discharge, pt was afebrile and selected to do conservative care for his ulcer instead of surgery, and possible amputation. Since then, pt states his foot has not gotten better and has been getting more painful. The swelling has worsened and the erythema has progressed and he is getting blister/abscess formation. Pt states movement makes the pain worse, and raising the foot makes the pain more bearable. Pt stats pain is currently at a 4/10 on a pain scale. Pt states he was not able to get his antibiotics, Zyvox because he did not receive prior authorization. Pt went home and proceeded to use methamphetamines. Pt is non-compliant with his diabetes medication. Chest X-ray showed: 1. Low lung volumes with no acute abnormality identified. Pt denies fever, chest pain, SOB, nausea, vomiting, headache Allergies and Home Medications Allergies Coded Allergies: No Known Drug Allergies (Unverified , 10/12/17) Home Medications Albuterol Sulfate 1 Puff Puff, 2 PUFF PO Q6H PRN for SHORTNESS OF BREATH, (Reported) Amlodipine Besylate 10 Mg Tablet, 10 MG PO DAILY, (Reported) Cetirizine HCl 10 Mg Tablet, 10 MG PO DAILY, (Reported) Clonidine HCl 0.1 Mg Tablet, 0.1 MG PO TID Prescribed by: ROBIN ROGEL on 11/21/19 1100 Cyclobenzaprine HCl 10 Mg Tablet, 10 MG PO TID PRN for MUSCLE SPASMS, (Reported) Dulaglutide 1.5 Mg/0.5 Ml Pen.injctr, 1.5 MG SC SUNDAY, (Reported) Furosemide 40 Mg Tablet, 40 MG PO DAILY, (Reported) Gabapentin 300 Mg Capsule, 300 MG PO TID Prescribed by: ROBIN ROGEL on 11/21/19 1100 Insulin Detemir 100 Unit/1 Ml Insuln.pen, 30 UNIT SQ HS Prescribed by: ROBIN ROGEL on 11/21/19 1100 Linezolid 600 Mg Tablet, 600 MG PO BID Prescribed by: ROBIN ROGEL on 11/21/19 1100 Metformin HCl 1,000 Mg Tablet, 1,000 MG PO BID, (Reported) Oxycodone HCl/Acetaminophen 1 Each Tablet, 1 TAB PO Q4H PRN for PAIN-MODERATE (5-7) Prescribed by: ROBIN ROGEL on 11/21/19 1100 Past Kndcpoo-Oszvuy-Ghilzu Hx Patient Social History Alcohol Use: Denies Use Number of Drinks Today: 0 Recreational Drug Use: Yes (methamphetamine) Drug of Choice: METH Smoking Status: Former Smoker Former Smoker, Quit: Oct 08, 1996 Type Used: Cigarettes Recent Foreign Travel: No Contact w/Someone Who Travel: No Recent Infectious Disease Expo: No Recent Hopitalizations: No Immunizations Up To Date Tetanus Booster (TDap): Unknown PED Vaccines UTD: No Date of Pneumonia Vaccine: Mar 05, 2011 Date of Influenza Vaccine: Nov 21, 2019 Seasonal Allergies Seasonal Allergies: Yes Surgeries History of Surgeries: Yes (PANCREAS STENT-HAS BEEN REMOVED, R KNEE X2, L KNEE ) Surgeries: Abdominal, Gallbladder, Orthopedic, Tonsillectomy Respiratory History of Respiratory Disorde: Yes Respiratory Disorders: Sleep Apnea Cardiovascular History of Cardiac Disorders: Yes Cardiac Disorders: Chronic Edema/Swelling, Hypertension Neurological History of Neurological Disord: No Reproductive System Hx Reproductive Disorders: No Sexually Transmitted Disease: No HIV/AIDS: No Genitourinary History of Genitourinary Disor: No Gastrointestinal History of Gastrointestinal Di: Yes (BLOOD IN STOOLS) Gastrointestinal Disorders: Gastroesophageal Reflux, Chronic Constipation, Pancreatitis, Chronic Diarrhea Musculoskeletal History of Musculoskeletal Dis: Yes (BOTH KNEES) Musculoskeletal Disorders: Arthritis Endocrine History of Endocrine Disorders: Yes (Morbid obesity) Endocrine Disorders: Diabetes, Insulin dep HEENT History of HEENT Disorders: No Loss of Vision: Bilateral Hearing Impairment: Denies Cancer History of Cancer: No Psychosocial History of Psychiatric Problem: Yes Behavioral Health Disorders: Depression Integumentary History of Skin or Integumenta: No Blood Transfusions History of Blood Disorders: No Adverse Reaction to a Blood Tr: No (N/A) Family Medical History Significant Family History: Heart Disease, CAD Under 55 Years Old, Hypertension, Vascular Disease, Other Conditions/Hx Family Medial History: Alzheimer's disease 19 MOTHER Arthritis 19 FATHER Cardiovascular disease 19 FATHER Dementia 19 MOTHER Hypertension 19 FATHER Myocardial infarction G8 BROTHER Parkinson's disease 19 MOTHER Prostate cancer 19 FATHER No Family History of: AIDS Abdominal aortic aneurysm Mitchell's disease Alcoholism Aphasia Asthma Cancer of mouth Cataracts Colon cancer Completed stroke Congenital disease Congenital heart disease Coronary thrombosis Cystic fibrosis Deafness or hearing loss Diabetes mellitus Drug abuse Dysphasia Fibrocystic disease of breast Gastroenteritis Glaucoma Headache disorder Hypercholesterolemia Infertility Kidney disease Neoplasm Not obtainable due to adoption Osteoporosis Psychosocial problem Respiratory disorder Seizure disorder Severe allergy Thyroid disease Tuberculosis Visual disorder Review of Systems-General Constitutional: No chills, No diaphoresis, No fever EENTM: No ear pain, No blurred vision Respiratory: No cough, No short of breath Cardiovascular: No chest pain Gastrointestinal: No abdominal pain, No constipation, No diarrhea Musculoskeletal: No back pain, No gout Skin: change in color, lesions (ulcer on left second toe) Psychiatric/Neurological: See HPI; Denies Depressed Physical Exam-General Problems Physical Exam Vital Signs Vital Signs - First Documented 11/23/19 11/23/19 01:40 02:14 Temp 36.3 Pulse 105 Resp 24 B/P (MAP) 151/109 (123) Pulse Ox 90 O2 Delivery Room Air O2 Flow Rate 2.00 Capillary Refill : Less Than 3 Seconds General Appearance: no apparent distress HEENT: PERRL/EOMI, normal ENT inspection Neck: non-tender, full range of motion, supple Cardiovascular: regular rate, rhythm, no edema Gastrointestinal: normal bowel sounds, non tender, soft Back: normal inspection, no CVA tenderness Extremities: inflammation, pedal edema, swelling (left LE, swelling, tenderness, erythema) Neurologic/Psychiatric: no motor/sensory deficits, alert, oriented x 3 Skin: No normal color; other (left second toe ulcer), rash Lymphatic: no adenopathy Data Review Labs Laboratory Tests 11/23/19 02:00: White Blood Count 14.7H, Red Blood Count 4.48, Hemoglobin 13.1L, Hematocrit 40, Mean Corpuscular Volume 88, Mean Corpuscular Hemoglobin 29, Mean Corpuscular Hemoglobin Concent 33, Red Cell Distribution Width 14.0, Platelet Count 278, Mean Platelet Volume 9.5, Neutrophils (%) (Auto) 78H, Lymphocytes (%) (Auto) 11L , Monocytes (%) (Auto) 9, Eosinophils (%) (Auto) 2, Basophils (%) (Auto) 0, Neutrophils # (Auto) 11.4H, Lymphocytes # (Auto) 1.7, Monocytes # (Auto) 1.3H, Eosinophils # (Auto) 0.2, Basophils # (Auto) 0.0, Neutrophils % (Manual) 79, Lymphocytes % (Manual) 11, Monocytes % (Manual) 8, Eosinophils % (Manual) 1, Band Neutrophils 1, Blood Morphology Comment NORMAL, Prothrombin Time 14.5, INR Comment 1.1, Activated Partial Thromboplast Time 36H, Sodium Level 135, Potassium Level 4.1, Chloride Level 97L, Carbon Dioxide Level 27, Anion Gap 11, Blood Urea Nitrogen 8, Creatinine 0.86, Estimat Glomerular Filtration Rate > 60, BUN/Creatinine Ratio 9, Glucose Level 380H, Lactic Acid Level 1.83, Calcium Level 9.3, Corrected Calcium 9.9, Total Bilirubin 0.7, Aspartate Amino Transf (AST/SGOT) 15, Alanine Aminotransferase (ALT/SGPT) 15, Alkaline Phosphatase 133, C-Reactive Protein High Sensitivity 14.05H, Total Protein 6.8, Albumin 3.3, Procalcitonin 1.10H 11/23/19 03:18: Urine Color YELLOW, Urine Clarity SL CLOUDY, Urine pH 6.0, Urine Specific Blair <=1.005, Urine Protein NEGATIVE, Urine Glucose (UA) 3+H, Urine Ketones NEGATIVE, Urine Nitrite NEGATIVE, Urine Bilirubin NEGATIVE, Urine Urobilinogen 0.2, Urine Leukocyte Esterase NEGATIVE, Urine RBC (Auto) NEGATIVE, Urine RBC NONE, Urine WBC NONE, Urine Squamous Epithelial Cells RARE, Urine Crystals NONE, Urine Bacteria NEGATIVE, Urine Casts NONE, Urine Mucus NEGATIVE, Urine Culture Indicated CULTURE PENDING, Urine Opiates Screen POSITIVEH, Urine Oxycodone Sc reen POSITIVEH, Urine Methadone Screen NEGATIVE, Urine Propoxyphene Screen NEGATIVE, Urine Barbiturates Screen NEGATIVE, Ur Tricyclic Antidepressants Screen NEGATIVE, Urine Phencyclidine Screen NEGATIVE, Urine Amphetamines Screen POSITIVEH, Urine Methamphetamines Screen POSITIVEH, Urine Benzodiazepines Screen NEGATIVE, Urine Cocaine Screen NEGATIVE, Urine Cannabinoids Screen NEGATIVE 11/23/19 05:19: Glucometer 315H 11/23/19 10:05: Glucometer 268H Assessment/Plan Assessment/Plan Assessment/Plan Left second toe ulcer Osteomyelitis Methamphetamine Use 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 Patient prior to discharge was discussed surgical intervention which he declined and wanted only medical management. He was discharge not wanting any surgeries and all his options were discussed with him. Patient stating that I acted "like a heavenly" towards him. That he said he was not sure on surgical intervention and wanted to have discussion with his present. I informed him that he did not request this other [place] we would have arranged that discussion prior to his discharge home. Patient admits going home yesterday and smoking methamphetamines. Patient was unable to get his oral antibiotics yesterday. He returned to the hospital iwth increased left foot pain, fever and swelling. Patient states currently pain is a 4/10 and at worse was above a 10/10. Patient states having more blistering around the left second toe area. Patient with recent MRI left foot suggestive of osteomyelitis. Allergies and Home Medications Allergies Coded Allergies: No Known Drug Allergies (Unverified , 10/12/17) Home Medications Albuterol Sulfate 1 Puff Puff, 2 PUFF PO Q6H PRN for SHORTNESS OF BREATH, (Reported) Amlodipine Besylate 10 Mg Tablet, 10 MG PO DAILY, (Reported) Cetirizine HCl 10 Mg Tablet, 10 MG PO DAILY, (Reported) Clonidine HCl 0.1 Mg Tablet, 0.1 MG PO TID Prescribed by: ROBIN ROGEL on 11/21/191099 Cyclobenzaprine HCl 10 Mg Tablet, 10 MG PO TID PRN for MUSCLE SPASMS, (Reported) Dulaglutide 1.5 Mg/0.5 Ml Pen.injctr, 1.5 MG SC SUNDAY, (Reported) Furosemide 40 Mg Tablet, 40 MG PO DAILY, (Reported) Gabapentin 300 Mg Capsule, 300 MG PO TID Prescribed by: ROBIN ROGEL on 11/21/191099 Insulin Detemir 100 Unit/1 Ml Insuln.pen, 30 UNIT SQ HS Prescribed by: ROBIN ROGEL on 11/21/191099 Linezolid 600 Mg Tablet, 600 MG PO BID Prescribed by: ROBIN ROGEL on 11/21/19 1100 Metformin HCl 1,000 Mg Tablet, 1,000 MG PO BID, (Reported) Oxycodone HCl/Acetaminophen 1 Each Tablet, 1 TAB PO Q4H PRN for PAIN-MODERATE (5-7) Prescribed by: ROBIN ROGEL on 11/21/19 1100 Patient Home Medication List Home Medication List Reviewed: Yes Past Olphpwh-Dgadpg-Vdtsvw Hx Patient Social History Recreational Drug Use: Yes Reviewed Nursing Assessment Reviewed/Agree w Nursing PMH: Yes Family Medical History Significant Family History: No Pertinent Family Hx Family Medial History: Alzheimer's disease 19 MOTHER Arthritis 19 FATHER Cardiovascular disease 19 FATHER Dementia 19 MOTHER Hypertension 19 FATHER Myocardial infarction G8 BROTHER Parkinson's disease 19 MOTHER Prostate cancer 19 FATHER No Family History of: AIDS Abdominal aortic aneurysm Mitchell's disease Alcoholism Aphasia Asthma Cancer of mouth Cataracts Colon cancer Completed stroke Congenital disease Congenital heart disease Coronary thrombosis Cystic fibrosis Deafness or hearing loss Diabetes mellitus Drug abuse Dysphasia Fibrocystic disease of breast Gastroenteritis Glaucoma Headache disorder Hypercholesterolemia Infertility Kidney disease Neoplasm Not obtainable due to adoption Osteoporosis Psychosocial problem Respiratory disorder Seizure disorder Severe allergy Thyroid disease Tuberculosis Visual disorder Review of Systems-General Constitutional: No chills, No diaphoresis, No fever EENTM: No ear pain, No blurred vision Respiratory: No cough, No short of breath Cardiovascular: No chest pain Gastrointestinal: No abdominal pain, No constipation, No diarrhea Genitourinary: No discharge, No dysuria Musculoskeletal: No back pain, No gout Skin: change in color, other (ulceration base of 2nd toe left foot plantar aspect) Psychiatric/Neurological: See HPI Physical Exam-General Problems Physical Exam General Appearance: no apparent distress HEENT: PERRL/EOMI, normal ENT inspection Neck: non-tender, supple Cardiovascular: regular rate, rhythm Gastrointestinal: non tender, soft, no organomegaly Rectal: deferred Back: no CVA tenderness Extremities: inflammation, pedal edema, swelling (left LE, swelling, tenderness, erythema left 2nd toe plantar portion ulceration, scant draingae surrounding blister and erythema) Neurologic/Psychiatric: alert, oriented x 3, other (slight decreased sensation left foot) Skin: other (left second toe ulcer plantar portion close to bse) Lymphatic: no adenopathy Assessment/Plan Assessment/Plan Assessment/Plan Left second toe/foot diabetic ulcer/abscess Osteomyelitis Methamphetamine Use uncontrolled diabetes type 2 -noncompliant patient and I had long discussion with. concerns for healing. need to get tight control of blood surgar discussed cessation of meth I do not feel at this point that this will heal without surgical intervention, we discussed risks and benefits of amputation of second toe and posibly metatarsal bone, incision and drainage and debridment of left foot patient and understand and wish to proceed. NPO after midnight we discussed postoperative pain management They understand will need prison wound care to get to heal along with possiblity of needing further surgical intervention. All questions answered, If futher questions instructed to write down and we would discuss. Supervisory-Addendum Brief Verification & Attestation Participated in pt care: history, MDM, physical Personally performed: exam, history, MDM, supervision of care Care discussed with: Medical Student Procedures: n/a Results interpretation: Verified all documentation Verification and Attestation of Medical Student E/M Service A medical student performed and documented this service in my presence. I revie wed and verified all information documented by the medical student and made modifications to such information, when appropriate. I personally performed the physical exam and medical decision making. Oscar Mike, Nov 23, 2019,15:01 AURE PELLE[employer]ER MEDICAL STUDENT Nov 23, 2019 14:19 OSCAR MIKE DO Nov 23, 2019 14:52
--- NOTE | 2019-11-23 14:55 | Anesthesia-Procedure Note ---
Procedures/Interventions Procedure Start/Stop/Diagnosis Date of Procedure: Nov 23, 2019 Start Time: 14:35 Stop Time: 14:45 Central Line/IV Access IV : Location: Left Site: Hand IV Catheter Type: Peripheral IV IV Catheter Gauge: 22 Progress attempt x 2. Procedure Conclusion taped in place report to RN. ALDO HENRY CRNA Nov 23, 2019 14:55
--- NOTE | 2019-11-23 15:00 | NUR ---
IV WITH #22 LEFT HAND BY ANESTHESIA. ORDERS REC'D TO SCHEDULE OR FOR TOMORROW. LOUISE NURSING APPLICATION PROCESSOR NOTIFIED. MRSA NARES DONE. PT REQUESTING TO SIGN CONSENT WHEN HERE TOMORROW.
[2019-11-23 16:19] VITALS: BP 149/67
--- NOTE | 2019-11-23 18:00 | NUR ---
OXYCODONE PO FOR C/O FOOT PAIN.
--- NOTE | 2019-11-23 19:30 | NUR ---
CONSENT FOR SURGERY READ TO PT AT THIS TIME. PT ACKNOWLEDGED AND SIGNED CONSENT. PT ALSO PRESENT IN ROOM AT THIS TIME.
[2019-11-23 19:55] VITALS: BP 124/56
[2019-11-23] MEDS: CYCLOBENZAPRINE 10 MG (FLEXERIL) TAB PO PRN (20:48)
[2019-11-23] MEDS ORDERED: NON-FORMULARY MEDICATION 1 EA EA (Insulin Detemir (Levemir Flextouch) 30 UNIT) SQ SCH (21:00)
[2019-11-24] VITALS (10 sets, daily range): BP systolic 128–165; BP diastolic 61–93
[2019-11-24] MEDS: ACETAMINOPHEN 325 MG TABLET PO PRN (00:19)
[2019-11-24] MEDS: VANCOMYCIN 2000 MG/NS 500 ML IVPB IV SCH ×2 (00:20)
[2019-11-24] MEDS: LACTATED RINGERS 1,000 ML IV SCH ×3 (00:21→20:14)
--- NOTE | 2019-11-24 03:10 | NUR ---
DR. RITCHIE CONTACTED REGARDING PT'S COMPLAINTS OF PAIN. PT IS NPO AND ONLY HAS PO PAIN MEDICATION AVAILABLE. ORDERS GIVEN TO RESTART DILAUDID 1MG IV Q3 HOURS PRN.
[2019-11-24] MEDS: HYDROmorphone 2 MG/ML VIAL (DILAUDID) IV PRN ×3 (03:31→17:55)
[2019-11-24 05:30] LABS: BASOPHILS % (AUTO) 0 % (0-10); EOSINOPHILS # (AUTO) 0.3 10^3/uL (0.0-0.3); EOSINOPHILS % (AUTO) 3 % (0-10); HEMATOCRIT 37 % (40-54); HEMOGLOBIN 11.7 G/DL (13.3-17.7); LYMPHOCYTES % (AUTO) 17 % (12-44); MEAN CORPUSCULAR HEMOGLOBIN 28 PG (25-34); MEAN CORPUSCULAR HGB CONC 32 G/DL (32-36); MEAN CORPUSCULAR VOLUME 90 FL (80-99); MONOCYTES # (AUTO) 1.1 X 10^3 (0.0-1.0); MONOCYTES % (AUTO) 9 % (0-12); NEUTROPHILS # (AUTO) 8.3 X 10^3 (1.8-7.8); NEUTROPHILS % (AUTO) 71 % (42-75); PLATELET COUNT 257 10^3/uL (130-400); RED CELL DISTRIBUTION WIDTH 13.9 % (10.0-14.5); WHITE BLOOD COUNT 11.7 10^3/uL (4.3-11.0)
[2019-11-24 05:47] LABS: ALANINE AMINOTRANSFERASE 14 U/L (0-55); ALKALINE PHOSPHATASE 142 U/L (40-136); BILIRUBIN,TOTAL 0.5 MG/DL (0.1-1.0); BUN/CREATININE RATIO 12; CARBON DIOXIDE 29 MMOL/L (21-32); CHLORIDE 101 MMOL/L (98-107); CREATININE SERUM 0.74 MG/DL (0.60-1.30); GFR ESTIMATED > 60; GLUCOSE 271 MG/DL (70-105); POTASSIUM 3.6 MMOL/L (3.6-5.0); SODIUM 139 MMOL/L (135-145); TOTAL PROTEIN 6.3 GM/DL (6.4-8.2)
--- NOTE | 2019-11-24 08:17 | Progress Note - Surgery ---
AURE PELLETIER MEDICAL STUDENT 11/24/19 0817: Subjective Date Seen by a Provider: Nov 24, 2019 Time Seen by a Provider: 08:12 Subjective/Events-last exam Pt is in doing well, and in no acute distress. Pt's is in the room with him. Pt states he has been compliant with his medications during his stay Pt is currently on nasal cannula Pt has been compliant with food and diet Pt states he has been informed of possible surgery today at 12:30, and is agreeable to proceeding with it Pt wanted to inform surgery team that he has a "healed ulcer on his 5th toe, though it still causes him pain. Please take a look at it during surgery" Pt had questions about lifestyle after surgery, DVT issues, ghost pains, physical therapy, and diabetes medication. I was able to answer these questions for them. Pt has no complaints of fever, chest pain, shortness of breath, nausea, vomiting, chills, diarrhea, abdominal pain Review of Systems General: No Chills, No Night Sweats HEENT: No Head Aches, No Visual Changes, No Eye Pain Pulmonary: No Dyspnea, No Cough Cardiovascular: No: Chest Pain Gastrointestinal: No: Nausea, Vomiting, Abdominal Pain Genitourinary: No Dysuria, No Frequency Musculoskeletal: No: neck pain, shoulder pain Neurological: No: Weakness, Numbness Focused Exam Lactate Level 11/23/19 02:00: Lactic Acid Level 1.83 Objective Exam Vital Signs Date Time Temp Pulse Resp B/P (MAP) Pulse Ox O2 Delivery O2 Flow Rate FiO2 11/24/19 04:40 36.9 90 20 159/77 (104) 94 Room Air 11/24/19 01:00 37.0 11/24/19 00:19 38.7 11/24/19 00:15 38.7 95 22 151/65 (93) 93 Room Air 11/23/19 19:55 37.6 101 18 124/56 (78) 92 Room Air 11/23/19 19:30 92 Room Air 11/23/19 16:19 37.0 84 18 149/67 (94) 92 Room Air 11/23/19 12:00 37.5 99 20 156/74 (101) 91 Nasal Cannula 2.00 11/23/19 11:00 90 Room Air I & O 11/24/19 07:00 Intake Total 5190 ml Output Total 6250 ml Balance -1060 ml Capillary Refill : Less Than 3 SecondsLess Than 3 Seconds General Appearance: Chronically ill HEENT: PERRL/EOMI, TMs Normal, Normal ENT Inspection Neck: Non Tender, Supple Respiratory: Lungs Clear, Normal Breath Sounds, Other (on nasal cannula) Cardiovascular: Regular Rate, Rhythm, No Gallop, No Murmur Gastrointestinal: non tender, soft, no organomegaly Extremity: Pedal Edema, Other (Left foot with erythema and evidence of abscess formation) Neurologic/Psychiatric: Alert, Oriented x3, Depressed Affect Skin: Erythema Lymphatic: No Adenopathy Results Lab Laboratory Tests 11/23/19 10:05: Glucometer 268H 11/23/19 15:16: Glucometer 305H 11/23/19 16:27: Glucometer 325H 11/23/19 20:00: Glucometer 268H 11/24/19 04:23: White Blood Count 11.7H, Red Blood Count 4.14L, Hemoglobin 11.7L, Hematocrit 37L , Mean Corpuscular Volume 90, Mean Corpuscular Hemoglobin 28, Mean Corpuscular Hemoglobin Concent 32, Red Cell Distribution Width 13.9, Platelet Count 257, Mean Platelet Volume 10.0, Neutrophils (%) (Auto) 71, Lymphocytes (%) (Auto) 17, Monocytes (%) (Auto) 9, Eosinophils (%) (Auto) 3, Basophils (%) (Auto) 0, Neutrophils # (Auto) 8.3H, Lymphocytes # (Auto) 2.0, Monocytes # (Auto) 1.1H, Eosinophils # (Auto) 0.3, Basophils # (Auto) 0.0, Sodium Level 139, Potassium Level 3.6, Chloride Level 101, Carbon Dioxide Level 29, Anion Gap 9, Blood Urea Nitrogen 9, Creatinine 0.74, Estimat Glomerular Filtration Rate > 60, BUN/Creatinine Ratio 12, Glucose Level 271H, Calcium Level 9.0, Corrected Calcium 9.8, Total Bilirubin 0.5, Aspartate Amino Transf (AST/SGOT) 21, Alanine Aminotransferase (ALT/SGPT) 14, Alkaline Phosphatase 142H, Total Protein 6.3L, Albumin 3.0L Microbiology 11/23/19 Blood Culture - Preliminary, Resulted No growth Assessment/Plan Assessment/Plan Assessment/Plan Left second toe/foot diabetic ulcer/abscess Osteomyelitis Methamphetamine Use uncontrolled diabetes type 2 -noncompliant Amputation of second toe and possibly metatarsal bone, incision and drainage and debridement of left foot Postoperative pain management and wound care All questions answered, if further questions instructed to write down and we would discuss. Clinical Quality Measures DVT/VTE Risk/Contraindication: Risk Factor Score Per Nursin RFS Level Per Nursing on Admit: 4+=Very High OSCAR PERES DO 11/24/19 1142: Subjective Subjective/Events-last exam Patient with no new complaints today. Still pain in the left foot. Slight drainage. Denies n/v fever sweats chills shortness of breath or chest pain. He states lightly less redness to left lower extremity. Objective Exam General Appearance: No Apparent Distress, Chronically ill HEENT: PERRL/EOMI Neck: Non Tender Respiratory: Chest Non Tender, No Accessory Muscle Use, No Respiratory Distress Cardiovascular: Regular Rate, Rhythm Gastrointestinal: non tender, soft, no organomegaly Extremity: Pedal Edema, Other (Left foot with erythema and evidence of abscess formation) Neurologic/Psychiatric: Alert, Oriented x3 Skin: Erythema Lymphatic: No Adenopathy Assessment/Plan Assessment/Plan Assessment/Plan Left second toe/foot diabetic ulcer/abscess Osteomyelitis Methamphetamine Use uncontrolled diabetes type 2 -noncompliant patient need Left amputation of second toe and possible 2nd metatarsal, incision and drainage all other indicated procedures and will need prison wound care. patient today with and both demonstrate understanding of risks and benefits and wish to proceed to or today, Supervisory-Addendum Brief Verification & Attestation Participated in pt care: history, MDM, physical Personally performed: exam, history, MDM, supervision of care Care discussed with: Medical Student Procedures: n/a Results interpretation: Verified all documentation Verification and Attestation of Medical Student E/M Service A medical student performed and documented this service in my presence. I reviewed and verified all information documented by the medical student and made modifications to such information, when appropriate. I personally performed the physical exam and medical decision making. Oscar Peres, Nov 24, 2019,11:45 AURE [employer]LE[employer] MEDICAL STUDENT Nov 24, 2019 08:17 OSCAR PERES DO Nov 24, 2019 11:42
[2019-11-24] MEDS ORDERED: GABA-488 PO (09:26)
[2019-11-24] MEDS ORDERED: OXYC1TAB12 PO (09:26)
[2019-11-24] MEDS ORDERED: CLON0.1T PO (09:26)
[2019-11-24] MEDS ORDERED: INSU100I29 SQ (09:26)
[2019-11-24] MEDS: cloNIDine 0.1 MG (CATAPRES) TAB PO SCH ×3 (09:57→20:10)
[2019-11-24] MEDS: FUROSEMIDE 40 MG (LASIX) TAB PO SCH (09:57)
[2019-11-24] MEDS: ENOXAPARIN 40 MG/0.4 ML (LOVENOX) SYR SC SCH ×2 (09:58→20:11)
[2019-11-24] MEDS: amLODIPine 10 MG (NORVASC) TAB PO SCH (09:58)
[2019-11-24] MEDS: GABAPENTIN 300 MG (NEURONTIN) CAP PO SCH ×3 (09:58→20:10)
--- NOTE | 2019-11-24 09:58 | NUR ---
LOVENOX NOT GIVEN THIS AM. PATIENT IS GOING TO SURGERY AT 1230.
[2019-11-24] MEDS: inSUlin ASPART (NovoLOG) 1 UNIT/0.01 ML (CHARGE PER UNIT) SC SCH ×3 (10:00→20:12)
--- NOTE | 2019-11-24 10:16 | NUR ---
SPOKE WITH THE PT ( I HAD HIS DISCHARGE ORDER FROM 11-22-2019) AND WENT THRU THE EXT MED HISTORY TO COMPLETE THE MED REC I SPOKE WITH THE PT ON 11-19-2019 WHEN HE WAS HERE PREVIOUSLY AND COMPLETED THE MED REC THEN. I UPDATED THE MED REC WITH THE NEW ORDERS FROM THE DISCHARGE ORDERS. ZYVOX WAS ORDERED BUT IT NEEDED A PRIOR AUTHORIZATION- IN THE NOTES IT LOOKS LIKE THE NURSE LET THE DR KNOW OF THIS. IT IS NOT ON THE MED REC DUE TO THE PT NOT TAKING IT.
[2019-11-24] MEDS ORDERED: ONDANSETRON 4 MG/2 ML (SDV) Z0FRAN ONE (11:48)
[2019-11-24] MEDS ORDERED: SEVOFLURANE (ULTANE) 15 ML INHAL SOLN ONE ×3 (11:48→14:39)
[2019-11-24] MEDS ORDERED: proPOfol 200 MG/20 ML (DIPRIVAN) VIAL IV ONE (11:48)
[2019-11-24] MEDS ORDERED: LIDOCAINE PF 2% 5 ML (XYLOCAINE) VIAL ONE (11:48)
[2019-11-24] MEDS ORDERED: fentaNYL INJECTION 100 MCG/2 ML AMP ONE (11:49)
[2019-11-24] MEDS ORDERED: MIDAZOLAM 2 MG/2 ML (VERSED) VIAL ONE (11:49)
[2019-11-24] MEDS ORDERED: TROUGH ORDER-PHARMACY XX NR (12:00)
--- NOTE | 2019-11-24 12:07 | Progress Note ---
Subjective Subjective/Events-last exam Patient upset about still being NPO. Denies any other concerns. Swelling and pain have improved Review of Systems Pulmonary: No Dyspnea Cardiovascular: No: Chest Pain, Palpitations Musculoskeletal: foot pain Neurological: Numbness Focused Exam Lactate Level 11/23/19 02:00: Lactic Acid Level 1.83 Objective Exam Last Set of Vital Signs Vital Signs Date Time Temp Pulse Resp B/P (MAP) Pulse Ox O2 Delivery O2 Flow Rate FiO2 11/24/19 08:00 Room Air 11/24/19 08:00 37.8 99 16 165/86 (112) 98 2.00 Capillary Refill : Less Than 3 SecondsLess Than 3 Seconds I&O Intake and Output 11/24/19 00:00 Intake Total 5130.5 ml Output Total 5100 ml Balance 30.5 ml Intake Oral 3010 ml IV Total 2120.5 ml Output Urine Total 5100 ml Daily Weight Change Unsure Unsure/Unresponsive General: Alert, Oriented X3, No Acute Distress Lungs: Clear to Auscultation, Normal Air Movement Heart: Regular Rate, No Murmurs Abdomen: Normal Bowel Sounds, Soft, No Tenderness, No Masses Extremities: Other (Left foot with swelling and erythema with streaking down foot, diminished pulses) Results/Procedures Lab Laboratory Tests 11/23/19 15:16: Glucometer 305H 11/23/19 16:27: Glucometer 325H 11/23/19 20:00: Glucometer 268H 11/24/19 04:23: White Blood Count 11.7H, Red Blood Count 4.14L, Hemoglobin 11.7L, Hematocrit 37L , Mean Corpuscular Volume 90, Mean Corpuscular Hemoglobin 28, Mean Corpuscular Hemoglobin Concent 32, Red Cell Distribution Width 13.9, Platelet Count 257, Mean Platelet Volume 10.0, Neutrophils (%) (Auto) 71, Lymphocytes (%) (Auto) 17, Monocytes (%) (Auto) 9, Eosinophils (%) (Auto) 3, Basophils (%) (Auto) 0, Neutrophils # (Auto) 8.3H, Lymphocytes # (Auto) 2.0, Monocytes # (Auto) 1.1H, Eosinophils # (Auto) 0.3, Basophils # (Auto) 0.0, Sodium Level 139, Potassium Level 3.6, Chloride Level 101, Carbon Dioxide Level 29, Anion Gap 9, Blood Urea Nitrogen 9, Creatinine 0.74, Estimat Glomerular Filtration Rate > 60, BUN/Creatinine Ratio 12, Glucose Level 271H, Calcium Level 9.0, Corrected Calcium 9.8, Total Bilirubin 0.5, Aspartate Amino Transf (AST/SGOT) 21, Alanine Aminotransferase (ALT/SGPT) 14, Alkaline Phosphatase 142H, Total Protein 6.3L, Albumin 3.0L Microbiology 11/23/19 Gram Stain - Final, Resulted 11/23/19 Sputum Culture, Resulted Pending 11/23/19 Blood Culture - Preliminary, Resulted No growth Assessment/Plan Assessment/Plan (1) Osteomyelitis of left foot Status: Acute Assessment & Plan: 11/23: IV antibiotics, to surgery today with Dr Peres, Culture sent, will continue IV until sensitivities return Qualifiers: Qualified Codes: M86.272 - Subacute osteomyelitis, left ankle and foot (2) Cellulitis of left lower extremity Status: Acute Assessment & Plan: 11/23: Patient to surgery today with Dr Peres for amputation (3) Insulin dependent diabetes mellitus with complications Status: Chronic Assessment & Plan: 11/23: SSI, A1c pending (4) 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
[2019-11-24] MEDS ORDERED: LACTATED RINGERS 1,000 ML IV PRN (12:22)
[2019-11-24] MEDS ORDERED: BUP/EPI 0.5% 1:200,000 (SENSORCAINE) 30 ML VIAL ONE (12:57)
--- NOTE | 2019-11-24 13:18 | NUR ---
VANCOMYCIN DOSING TROUGH LEVEL 22.4 - CHANGE DOSE TO VANC 1750 MG Q12H TO RESTART AT 1800 CHECK TROUGH LEVEL 11/25 AT 0500 HOLD DOSE AND CONTACT PHARMACY IF LEVEL IS GREATER THAN 20
--- NOTE | 2019-11-24 13:30 | NUR ---
PATIENT RETURNED TO FLOOR FROM SURGERY. REPORT RECEIVED FROM CROSS TIE CUTTER PATRICIA. PATIENT AND DENY ANY NEEDS AT THIS TIME.
[2019-11-24] MEDS ORDERED: HYDROmorphone 2 MG/ML VIAL (DILAUDID) ONE (13:35)
[2019-11-24] MEDS ORDERED: PHENYLEPHRINE 100 MCG/ML 10 ML (ANESTHESIA) SYR ONE (13:44)
[2019-11-24] MEDS: DAKIN'S 1/4 STRENGTH (0.125%) 473 ML BTL TOP SCH (14:25)
[2019-11-24] MEDS ORDERED: morphine INJ 10 MG/ML 1ML (SYR OR VIAL) ONE (14:41)
[2019-11-24] MEDS ORDERED: morphine INJ 10 MG/ML 1ML (SYR OR VIAL) IVP ONE (14:45)
[2019-11-24] MEDS ORDERED: ONDANSETRON 4 MG/2 ML (SDV) Z0FRAN IVP PRN (14:45)
[2019-11-24] MEDS ORDERED: HYDROmorphone 2 MG/ML VIAL (DILAUDID) IV ONE (14:45)
--- NOTE | 2019-11-24 16:45 | Progress Note-Post Operative ---
Post-Operative Progess Note Surgeon (s)/Ceramics Engineer (s) Surgeon OSCAR MIKE DO Ceramics Engineer: na Pre-Operative Diagnosis left foot osteomyelitis/abscess Post-Operative Diagnosis same Procedure & Operative Findings Date of Procedure 11/24/19 Procedure Performed/Findings incision and drainage left foot abscess, 2nd toe amputation partial 2nd metatarsal amputation debridement of left foot wound overall dimensions 6x4x3 cm proximal ankle circumferential block left Anesthesia Type general with proximal ankle circumferential block left Estimated Blood Loss Estimated blood loss (mL): minimal Specimens/Packing Specimens Removed culture, 2nd toe and 2nd metatarsal partial left OSCAR MIKE DO Nov 24, 2019 16:45
[2019-11-24] MEDS: VANCOMYCIN INJECTION 1,750 MG in NS IV 500 ML 500 ML IV SCH (17:30)
[2019-11-24] MEDS: oxyCODONE/APAP 10/325MG (PERCOCET 10) TABLET PO PRN (20:11)
--- NOTE | 2019-11-24 22:32 | OPERATIVE REPORT ---
DATE OF SERVICE: 11/24/2019 PREOPERATIVE DIAGNOSES: Left foot osteomyelitis and abscess. POSTOPERATIVE DIAGNOSES: Left foot osteomyelitis and abscess. PROCEDURE: Incision and drainage, left foot abscess, second toe amputation, partial second metatarsal amputation, debridement of left foot wound. Overall, dimensions 6 x 4 x 3 cm and proximal ankle circumferential block of the left ankle. SURGEON: Oscar Peres DO ANESTHESIA: General with proximal ankle circumferential block on the left. ESTIMATED BLOOD LOSS: Minimal. COMPLICATIONS: None. INDICATIONS: The patient is a 49-year-old male with uncontrolled diabetes and foot abscess with MRI suggestive of osteomyelitis. The patient was discussed risks and benefits of procedure and wished to proceed with procedure. Consent was signed in the chart. DESCRIPTION OF PROCEDURE: The patient was taken to the operating suite, was prepped and draped in sterile fashion. Timeout was performed. A 20 mL of anesthetic was used to do a circumferential block at the left ankle. At this point, a 15 blade scalpel was used to make an incision around the second toe area of abscess and an open wound and then going on the dorsal aspect and plantar aspect. Once down through the skin, cautery was used to continue the dissection and a large intramuscular abscess was encountered. Culture was obtained and the foot was continued to be debrided removing any necrotic appearing tissue. At this point, the second toe was amputated at the base and a saw was then used to amputate the distal portion of the second metatarsal bone. Using the saw, this was also rounded for pressure purposes. The wound was irrigated with copious amounts of irrigation and then packed with Kerlix soaked in 0.25% Dakin's and then wrapped. Debridement went through skin, subcutaneous tissue and muscle. RECOMMENDATIONS: The patient will need to continue wound care. Continue antibiotics. The patient still may need further surgical intervention and washouts. He will need long-term wound care as well. Job ID: [id number] DocumentID: [id number] Dictated Date: 11/24/2019 16:49:07 Anode Worker Date: 11/24/2019 22:32:11 Dictated By: OSCAR PERES DO
[2019-11-25] MEDS: HYDROmorphone 2 MG/ML VIAL (DILAUDID) IV PRN ×6 (00:17→20:38)
[2019-11-25 04:23] VITALS: BP 162/73
[2019-11-25] MEDS: VANCOMYCIN INJECTION 1,750 MG in NS IV 500 ML 500 ML IV SCH ×2 (05:55→17:13)
[2019-11-25] MEDS: LACTATED RINGERS 1,000 ML IV SCH (05:55)
[2019-11-25] MEDS: oxyCODONE/APAP 10/325MG (PERCOCET 10) TABLET PO PRN ×3 (05:56→15:07)
[2019-11-25 06:19] LABS: BASOPHILS % (AUTO) 0 % (0-10); EOSINOPHILS # (AUTO) 0.3 10^3/uL (0.0-0.3); EOSINOPHILS % (AUTO) 3 % (0-10); HEMATOCRIT 37 % (40-54); HEMOGLOBIN 11.7 G/DL (13.3-17.7); LYMPHOCYTES # (AUTO) 1.4 X 10^3 (1.0-4.0); LYMPHOCYTES % (AUTO) 13 % (12-44); MEAN CORPUSCULAR HEMOGLOBIN 29 PG (25-34); MEAN CORPUSCULAR HGB CONC 32 G/DL (32-36); MEAN CORPUSCULAR VOLUME 91 FL (80-99); MEAN PLATELET VOLUME 9.7 FL (7.4-10.4); MONOCYTES % (AUTO) 9 % (0-12); NEUTROPHILS # (AUTO) 8.4 X 10^3 (1.8-7.8); NEUTROPHILS % (AUTO) 75 % (42-75); PLATELET COUNT 304 10^3/uL (130-400); RED CELL DISTRIBUTION WIDTH 14.3 % (10.0-14.5); WHITE BLOOD COUNT 11.1 10^3/uL (4.3-11.0)
[2019-11-25 06:40] LABS: BUN/CREATININE RATIO 13; CALCIUM 8.7 MG/DL (8.5-10.1); CARBON DIOXIDE 28 MMOL/L (21-32); CHLORIDE 100 MMOL/L (98-107); CREATININE SERUM 0.72 MG/DL (0.60-1.30); GFR ESTIMATED > 60; GLUCOSE 231 MG/DL (70-105); SODIUM 139 MMOL/L (135-145)
--- NOTE | 2019-11-25 06:43 | Anesthesia-General Post-Op ---
General Patient Condition Mental Status/LOC: Same as Preop Cardiovascular: Satisfactory Nausea/Vomiting: Absent Respiratory: Satisfactory Pain: Controlled Complications: Absent Post Op Complications Complications None Follow Up Care/Instructions Patient Instructions None needed. Anesthesia/Patient Condition Patient Condition Patient is doing well, no complaints, stable vital signs, no apparent adverse anesthesia problems. No complications reported per nursing. ALDO HENRY CRNA Nov 25, 2019 06:43
[2019-11-25 07:39] VITALS: BP 150/72
[2019-11-25] MEDS: amLODIPine 10 MG (NORVASC) TAB PO SCH (07:48)
[2019-11-25] MEDS: GABAPENTIN 300 MG (NEURONTIN) CAP PO SCH ×3 (07:48→21:49)
[2019-11-25] MEDS: ENOXAPARIN 40 MG/0.4 ML (LOVENOX) SYR SC SCH ×2 (07:48→21:52)
[2019-11-25] MEDS: FUROSEMIDE 40 MG (LASIX) TAB PO SCH (07:48)
[2019-11-25] MEDS: cloNIDine 0.1 MG (CATAPRES) TAB PO SCH ×3 (07:48→21:49)
[2019-11-25] MEDS: inSUlin ASPART (NovoLOG) 1 UNIT/0.01 ML (CHARGE PER UNIT) SC SCH ×3 (09:45→21:50)
[2019-11-25 11:35] VITALS: BP 146/76
[2019-11-25] MEDS: DAKIN'S 1/4 STRENGTH (0.125%) 473 ML BTL TOP SCH (11:45)
--- NOTE | 2019-11-25 13:20 | NUR ---
"RD ASSESSMENT PMHx: T2DM; HTN; GERD; pancreatitis; chronic diarrhea PT INTERACTION: Pt was awake and pleasant during nutrition assessment. Pt states current appetite is so-so, and has been for some time. Note avg PO intake >75% x2d, per chart review. Pt states no recent issues with n/v/c/d at this time, and that his last BM was 11/24. Note pt not currently on bowel regimen per chart review. Note recent 11# wt gain x6d, per chart review. Note presence of wound (left foot), per chart review/visual exam. ABNORMAL NUTRITION-RELATED LAB VALUES LOW: HIGH: glu 231 Est. kcal needs: 6675-1862 kcal | 15-18 kcal/kg Est. Pro needs: 160-187 g Pro | 1.2-1.4 g Pro/kg PES STATEMENT: Inadequate protein intake ([id number]) related to increased protein needs as evidenced by presence of wounds (left foot) INTERVENTION: Continue with current diet order of CHO 60g/m 0snack diet. Add Ensure HP (vary) to meals TID. Provides 160 kcal and 16 g Pro per serving for perceived benefit to wound healing. Will continue to follow and reassess as pt needs, intake, and status change. MONITOR/EVALUATE: PO Intake; Plan of Care; Hydration Status; Weight Status; Lab Values Johnson Valdovinos, , RD, LD"
--- NOTE | 2019-11-25 15:41 | Progress Note ---
Subjective Subjective/Events-last exam Patient states that he is having pain in between his meds. BM this AM. Tolerating PO diet. Review of Systems Pulmonary: No Dyspnea, No Cough Cardiovascular: No: Chest Pain, Palpitations Gastrointestinal: No: Nausea, Vomiting, Abdominal Pain, Diarrhea, Constipation Musculoskeletal: leg pain Neurological: Weakness, Numbness Focused Exam Lactate Level 11/23/19 02:00: Lactic Acid Level 1.83 Objective Exam Last Set of Vital Signs Vital Signs Date Time Temp Pulse Resp B/P (MAP) Pulse Ox O2 Delivery O2 Flow Rate FiO2 11/25/19 11:35 36.5 89 22 146/76 (99) 91 Room Air 11/25/19 07:46 2.00 Capillary Refill : Less Than 3 SecondsLess Than 3 Seconds I&O Intake and Output 11/25/19 00:00 Intake Total 4560 ml Output Total 4325 ml Balance 235 ml Intake Oral 3040 ml IV Total 1520 ml Output Urine Total 4325 ml General: Alert, Oriented X3, Cooperative, No Acute Distress Lungs: Clear to Auscultation, Normal Air Movement Heart: Regular Rate, No Murmurs Abdomen: Normal Bowel Sounds, Soft, No Tenderness, No Masses Extremities: Other (LLE with bandage in place, 1+ pitting edema to mid cloth) Neuro: Normal Speech, Strength at 5/5 X4 Ext Results/Procedures Lab Laboratory Tests 11/24/19 19:29: Glucometer 272H 11/24/19 19:59: Glucometer 285H 11/25/19 05:46: Glucometer 236H 11/25/19 05:48: White Blood Count 11.1H, Red Blood Count 4.07L, Hemoglobin 11.7L, Hematocrit 37L , Mean Corpuscular Volume 91, Mean Corpuscular Hemoglobin 29, Mean Corpuscular Hemoglobin Concent 32, Red Cell Distribution Width 14.3, Platelet Count 304, Mean Platelet Volume 9.7, Neutrophils (%) (Auto) 75, Lymphocytes (%) (Auto) 13, Monocytes (%) (Auto) 9, Eosinophils (%) (Auto) 3, Basophils (%) (Auto) 0, Neutrophils # (Auto) 8.4H, Lymphocytes # (Auto) 1.4, Monocytes # (Auto) 1.0, Eosinophils # (Auto) 0.3, Basophils # (Auto) 0.0, Sodium Level 139, Potassium Level 4.0, Chloride Level 100, Carbon Dioxide Level 28, Anion Gap 11, Blood Urea Nitrogen 9, Creatinine 0.72, Estimat Glomerular Filtration Rate > 60, BUN/Creatinine Ratio 13, Glucose Level 231H, Calcium Level 8.7 11/25/19 09:23: Glucometer 322H 11/25/19 14:40: Glucometer 358H Microbiology 11/24/19 Gram Stain - Final, Resulted 11/24/19 Anaerobic Culture, Resulted Pending 11/24/19 Surgical Culture - Preliminary, Resulted No growth 11/23/19 MRSA Screen - Final, Complete MRSA not isolated 11/23/19 Urine Culture - Final, Complete NO GROWTH 11/23/19 Blood Culture - Preliminary, Resulted No growth Assessment/Plan Assessment/Plan (1) Osteomyelitis of left foot Status: Acute Assessment & Plan: 11/23: IV antibiotics, to surgery today with Dr Peres, Culture sent, will continue IV until sensitivities return 11/24: POD#1, Cultures pending Qualifiers: Qualified Codes: M86.272 - Subacute osteomyelitis, left ankle and foot (2) Cellulitis of left lower extremity Status: Acute Assessment & Plan: 11/23: Patient to surgery today with Dr Peres for amputation (3) Insulin dependent diabetes mellitus with complications Status: Chronic Assessment & Plan: 11/23: SSI, A1c pending (4) 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
[2019-11-25 16:00] VITALS: BP 123/74
--- NOTE | 2019-11-25 16:11 | Occupational Therapy Eval ---
OT Evaluation-General/PLF Medical Diagnosis Admission Date Nov 23, 2019 at 03:16 Medical Diagnosis: left 2nd toe amputation Onset Date: Nov 23, 2019 Therapy Diagnosis Therapy Diagnosis: impaired ADL skills Height/Weight Height (Feet): 5 Height (Inches): 9.00 Weight (Pounds): 389 Weight (Ounces): 0.0 Precautions Precautions/Isolations: Standard Precautions Safety Interventions: Reorient-PRN Weight Bear Status Weight Bearing Restriction: Partial Weight Bearing Location Restriction: L LE Referral Physician: Ja Medical History Pertinent Medical History: Arthritis, COPD, DM, GERD, HTN Additional Medical History sleep apnea, chronic edema, pancreatitis, depression Current History left 2nd toe amputation, 2nd metatarsal partial amputation, irrigation & debridement 11/24/19 Social History Home: Single Level Current Living Status: Spouse Entry Into Home: Stairs Without Railing ADL-Prior Level of Function SCALE: Activities may be completed with or without assistive devices. 8-Ljrlasgujb-laqxcmm completes the activity by him/herself with no assistance from a helper. 5-Set-up or Clean-up Assistance-helper sets up or cleans up; patient completes activity. [place] assists only prior to or following the activity. 4-Supervision or Touching Assistance-helper provides verbal cues and/or touching/steadying and/or contact guard assistance as patient completes activity. Assistance may be provided throughout the activity or intermittently. 3-Partial/Moderate Assistance-helper does LESS THAN HALF the effort. [place] lifts, holds or supports trunk or limbs, but provides less than half the effort. 2-Substantial/Maximal Assistance-helper does MORE THAN HALF the effort. [place] lifts or holds trunk or limbs and provides more than half the effort. 5-Bhlfyffkd-zaosss does ALL the effort. Patient does none of the effort to complete the activity. Or, the assistance of 2 or more helpers is required for the patient to complete the activity. If activity was not attempted, code reason: 7-Patient Refused. 9-Not Applicable-not attempted and the patient did not perform the activity before the current illness, exacerbation or injury. 10-Not Attempted due to Environmental Limitations-(lack of equipment, weather restraints, etc.). 88-Not Attempted due to Medical Conditions or Safety Concerns. ADL PLOF Comments Pt reports being independent prior to admission. Self Care: Independent Functional Cognition: Independent DME/Equipment: Shower OT Current Status Subjective Pt sitting in chair, agrees to therapy. Pt reports 5/10 pain in left foot. Mental Status/Objective Patient Orientation: Person, Place, Situation Attachments: IV Current Hand Dominance: Right Upper Extremity ROM Grossly WFL Upper Extremity Coordination Intact Upper Extremity Strength Grossly WFL ADL-Treatment ADL-Current Pt sitting in chair, reports fatigue and requests to return to bed. Pt required assist to don right sock. Pt performed stand pivot transfer to EOB with FWW, CGA and cues for safety. Sit to supine without assist. Education provided regarding role of OT and plan of care. Pt states understanding of education. Pt resting in bed with needs met and spouse present after session. Education OT Patient Education: Rehab process Teaching Recipient: Patient Teaching Methods: Discussion Response to Teaching: Verbalize Understanding OT Skilled Nursing Goals Skilled Nursing Goals Time Frame: Dec 02, 2019 Oral Hygiene (QC): 6 Toileting Hygiene (QC): 6 Shower/Bathe Self (QC): 5 Upper Body Dressing (QC): 5 Lower Body Dressing (QC): 5 Additional Goals: 1-Demonstrate ADL Tasks, 2-Verbalize Understanding, 3-I mproveStrength/Iveth 1=Demonstrate adherence to instructed precautions during ADL tasks. 2=Patient will verbalize/demonstrate understanding of assistive devices/modifications for ADL. 3=Patient will improve strength/tolerance for activity to enable patient to perform ADL's. OT Education/Plan Problem List/Assessment Assessment: Decreased Activ Tolerance, Dependent Transfers, Impaired Self-Care Skills Pt to benefit from skilled OT intervention for ADL training, transfers, strengthening, and safety education to increase level function and allow safe discharge home. Discharge Recommendations Plan/Recommendations: Continue POC Treatment Plan/Plan of Care Treatment,Training & Education: Yes Patient would benefit from OT for education, treatment and training to promote independence in ADL's, mobility, safety and/or upper extremity function for ADL's. Plan of Care: ADL Retraining, Functional Mobility, UE Funct Exercise/Act Treatment Duration: Dec 02, 2019 Frequency: 5 times per week Estimated Hrs Per Day: .25 hour per day Time/GCodes Start Time: 15:35 Stop Time: 15:58 Total Time Billed (hr/min): 23 Billed Treatment Time 1 visit, EVL(23minutes) DONAL BENITEZ OT Nov 25, 2019 16:11
--- NOTE | 2019-11-25 16:27 | Physical Therapy Evaluation ---
PT Evaluation-General Medical Diagnosis Admission Date Nov 23, 2019 at 03:16 Medical Diagnosis: left 2nd amputation Onset Date: Nov 24, 2019 Therapy Diagnosis Therapy Diagnosis: debility Height/Weight Height (Feet): 5 Height (Inches): 9.00 Weight (Pounds): 389 Weight (Ounces): 0.0 Precautions Precautions/Isolations: Fall Prevention, Standard Precautions Weight Bear Status Right Lower Extremity: Right Weight Bearing/Tolerated Left Lower Extremity: Left Partial Weight Bearing Referral Physician: Ja Reason for Referral: Evaluation/Treatment Medical History Pertinent Medical History: Arthritis, COPD, DM, GERD, HTN Additional Medical History recent hospital stay due to left LE pain Current History brought to hospital by family pain in L foot Reviewed History: Yes Social History Home: Single Level Current Living Status: Spouse Entry Into Home: Stairs Without Railing PT Steps Into Home: 6 (6 infront 4 in back) Prior Prior Level of Function SCALE: Activities may be completed with or without assistive devices. 6-Xzzlozzyrz-hicljmg completes the activity by him/herself with no assistance from a helper. 5-Set-up or Clean-up Assistance-helper sets up or cleans up; patient completes activity. [place] assists only prior to or following the activity. 4-Supervision or Touching Assistance-helper provides verbal cues and/or touching/steadying and/or contact guard assistance as patient completes activity. Assistance may be provided throughout the activity or intermittently. 3-Partial/Moderate Assistance-helper does LESS THAN HALF the effort. [place] lifts, holds or supports trunk or limbs, but provides less than half the effort. 2-Substantial/Maximal Assistance-helper does MORE THAN HALF the effort. [place] lifts or holds trunk or limbs and provides more than half the effort. 6-Sxgcqdjpq-vriibo does ALL the effort. Patient does none of the effort to complete the activity. Or, the assistance of 2 or more helpers is required for the patient to complete the activity. If activity was not attempted, code reason: 7-Patient Refused. 9-Not Applicable-not attempted and the patient did not perform the activity before the current illness, exacerbation or injury. 10-Not Attempted due to Environmental Limitations-(lack of equipment, weather restraints, etc.). 88-Not Attempted due to Medical Conditions or Safety Concerns. Bed Mobility: 6 Transfers (B,C,W/C): 6 Gait: 6 Stairs: 6 Wheelchair Mobility: 6 Indoor Mobility (Ambulation): Independent Stairs: Independent Prior Devices Use: Other-see list below Prior Device Use: cane PRN PT Evaluation-Current Subjective Pain 8/10 in L foot Pain Numeric Pain Scale: 8 Location: Left Location Body Site: Foot Pain Description: Acute Pt/Family Goals Return home Objective Patient Orientation: Person, Place, Eyes Open Attachments: IV ROM/Strength ROM Upper Extremities WNL ROM Lower Extremities impair at L foot Strength Upper Extremities WNL Strength Lower Extremities WNL except for L foot and leg weak due to operation. Integumentary/Posture Integumentary per patient, left foot is "open" to drain (noted dressing in place) Bowel Incontinence: No Bladder Incontinence: No Posture WFL Neuromuscular (Tone, Coordination, Reflexes) grossly intact Sensory Vision: Functional Hearing: Functional Hand Dominance: Right Sensation Right Upper Extremit: Intact Sensation Left Upper Extremity: Intact Sensation Right Lower Extremit: Intact Sensation Left Lower Extremity: Intact Transfers Roll Left to Right (QC): 4 Sit to Lying (QC): 4 Lying to Sitting/Side of Bed(Q: 4 Sit to Stand (QC): 4 Chair/Jig-jg-Sdweu Xfer(QC): 4 Gait Does the Patient Walk?: Yes Mode of Locomotion: Walk Anticipated Mode of Locomotion: Walk Walk 10 feet (QC): 4 Walk 50 ft with 2 Turns(QC): 88 Walk 150 ft (QC): 88 Walking 10ft/uneven surface-QC: 88 Gait Assistive Device: FWW Comments/Gait Description patient has difficulty with PWB left foot Balance Sitting Static: Normal Sitting Dynamic: Normal Standing Static: Good Standing Dynamic: Fair Picking up an Object (QC): 88 Assessment/Needs Walks well with PT CGA for safety and has pain L LE. Noted difficulty with PWB left foot due to obesity. Rehab Potential: Guarded PT Short Term Goals Short Term Goals Time Frame: Dec 03, 2019 Roll Left & Right: 5 Sit to lyin Lying to sitting on side of be: 5 Sit to stand: 5 Chair/kxv-sr-opvwa transfer: 5 Walk 10 feet: 5 Walk 50 feet with two turns: 4 Walk 150 feet: 4 PT Draw Frame Runner Goals Draw Frame Runner Goals PT Half-Way Goals Time Frame: Dec 05, 2019 Roll Left & Right (QC): 6 Sit to Lying (QC): 6 Lying-Sitting on Side/Bed(QC): 6 Sit to Stand (QC): 6 Chair/Omv-nt-Mvfsd Xfer(QC): 6 Toilet Transfer (QC): 6 Does the Patient Walk: Yes Walk 10 feet (QC): 6 Walk 50ft with 2 Turns (QC): 5 Walk 150 ft (QC): 5 PT Plan Problem List Problem List: Activity Tolerance, Functional Strength, Safety, Balance, Gait, Transfer, Bed Mobility Treatment/Plan Treatment Plan: Continue Plan of Care Treatment Plan: Bed Mobility, Concurrent Therapy, Education, Functional Activity Iveth, Functional Strength, Group Therapy, Gait, Safety, Therapeutic Exercise, Transfers Treatment Duration: Dec 05, 2019 Frequency: 6 times per week Estimated Hrs Per Day: .25 hour per day Patient and/or Family Agrees t: Yes Safety Risks/Education Patient Education: Gait Training, Transfer Techniques, Correct Positioning, Disease Process, Safety Issues Teaching Recipient: Patient Teaching Methods: Demonstration, Discussion, Audiovisual Response to Teaching: Verbalize Understanding, Return Demonstration, Reinforcement Needed Time/GCodes Time In: Time Out: Total Billed Treatment Time: 15 Total Billed Treatment 1 visit KURTIS 15' MCKAYLA RECIO PT Nov 25, 2019 16:27
[2019-11-25 20:00] VITALS: BP 177/69
[2019-11-26 00:10] VITALS: BP 166/78
[2019-11-26] MEDS: oxyCODONE/APAP 10/325MG (PERCOCET 10) TABLET PO PRN ×6 (00:51→23:05)
[2019-11-26 04:40] VITALS: BP 179/81
[2019-11-26] MEDS: HYDROmorphone 2 MG/ML VIAL (DILAUDID) IV PRN ×2 (04:46→08:15)
[2019-11-26] MEDS ORDERED: TROUGH ORDER-PHARMACY XX NR (05:00)
[2019-11-26 05:12] LABS: BASOPHILS % (AUTO) 0 % (0-10); EOSINOPHILS # (AUTO) 0.4 10^3/uL (0.0-0.3); EOSINOPHILS % (AUTO) 3 % (0-10); HEMATOCRIT 37 % (40-54); HEMOGLOBIN 11.6 G/DL (13.3-17.7); LYMPHOCYTES % (AUTO) 18 % (12-44); MEAN CORPUSCULAR HEMOGLOBIN 29 PG (25-34); MEAN CORPUSCULAR HGB CONC 32 G/DL (32-36); MEAN CORPUSCULAR VOLUME 91 FL (80-99); MEAN PLATELET VOLUME 9.4 FL (7.4-10.4); MONOCYTES # (AUTO) 0.9 X 10^3 (0.0-1.0); MONOCYTES % (AUTO) 8 % (0-12); NEUTROPHILS # (AUTO) 7.9 X 10^3 (1.8-7.8); NEUTROPHILS % (AUTO) 71 % (42-75); PLATELET COUNT 305 10^3/uL (130-400); WHITE BLOOD COUNT 11.2 10^3/uL (4.3-11.0)
[2019-11-26 05:24] LABS: BUN/CREATININE RATIO 14; CARBON DIOXIDE 29 MMOL/L (21-32); CHLORIDE 101 MMOL/L (98-107); CREATININE SERUM 0.78 MG/DL (0.60-1.30); SODIUM 140 MMOL/L (135-145)
[2019-11-26 05:25] LABS: CALCIUM 8.8 MG/DL (8.5-10.1); GFR ESTIMATED > 60; GLUCOSE 217 MG/DL (70-105)
[2019-11-26 05:36] LABS: VANCOMYCIN,TROUGH 10.8 UG/ML (10.0-20.0)
[2019-11-26] MEDS: LACTATED RINGERS 1,000 ML IV SCH (06:06)
[2019-11-26] MEDS: VANCOMYCIN INJECTION 1,750 MG in NS IV 500 ML 500 ML IV SCH (06:06)
[2019-11-26] MEDS: amLODIPine 10 MG (NORVASC) TAB PO SCH (07:40)
[2019-11-26] MEDS: cloNIDine 0.1 MG (CATAPRES) TAB PO SCH ×3 (07:40→20:48)
[2019-11-26] MEDS: FUROSEMIDE 40 MG (LASIX) TAB PO SCH (07:40)
[2019-11-26] MEDS: GABAPENTIN 300 MG (NEURONTIN) CAP PO SCH ×3 (07:40→20:48)
[2019-11-26] MEDS: DAKIN'S 1/4 STRENGTH (0.125%) 473 ML BTL TOP SCH (07:41)
[2019-11-26] MEDS: ENOXAPARIN 40 MG/0.4 ML (LOVENOX) SYR SC SCH ×2 (07:41→20:47)
[2019-11-26 08:00] VITALS: BP 145/77
[2019-11-26] MEDS: CYCLOBENZAPRINE 10 MG (FLEXERIL) TAB PO PRN ×2 (10:46→20:54)
[2019-11-26] MEDS ORDERED: HYDROmorphone PF INJECTION 20 MG in NS (IVPB) 100 ML IV PRN (11:30)
--- NOTE | 2019-11-26 11:36 | Progress Note - Surgery ---
Subjective Date Seen by a Provider: Nov 25, 2019 Time Seen by a Provider: 11:31 Subjective/Events-last exam Doing okay. Pain still present, pain meds help some. Tolerating diet. Denies n/v fever sweats chills shortness of breath or chest pain. Objective Exam Vital Signs Date Time Temp Pulse Resp B/P (MAP) Pulse Ox O2 Delivery O2 Flow Rate FiO2 11/26/19 08:00 93 Nasal Cannula 2.00 11/26/19 08:00 37.0 90 20 145/77 (99) 93 Nasal Cannula 2.00 11/26/19 04:40 37.1 93 20 179/81 (113) 95 Nasal Cannula 3.00 11/26/19 00:10 37.8 96 22 166/78 (107) 92 Room Air 11/25/19 22:50 Nasal Cannula 2.00 11/25/19 20:30 92 Room Air 11/25/19 20:00 37.5 93 18 177/69 (105) 92 Room Air 11/25/19 16:00 37.4 93 18 123/74 (90) 92 Room Air 11/25/19 11:35 36.5 89 22 146/76 (99) 91 Room Air I & O 11/26/19 07:00 Intake Total 5243.5 ml Output Total 5325 ml Balance -81.5 ml Capillary Refill : Less Than 3 SecondsLess Than 3 Seconds General Appearance: No Apparent Distress, Chronically ill HEENT: PERRL/EOMI Neck: Non Tender Respiratory: Chest Non Tender, No Accessory Muscle Use, No Respiratory Distress Cardiovascular: Regular Rate, Rhythm Gastrointestinal: non tender, soft, no organomegaly Extremity: Pedal Edema, Other (Left foot with min erythema and no purulent drainage) Neurologic/Psychiatric: Alert, Oriented x3 Skin: Normal Color, Warm/Dry, Erythema (minimal around incision), Other (wound clean no purulent drainage) Lymphatic: No Adenopathy Results Lab Laboratory Tests 11/25/19 14:40: Glucometer 358H 11/25/19 20:09: Glucometer 318H 11/26/19 04:57: White Blood Count 11.2H, Red Blood Count 4.01L, Hemoglobin 11.6L, Hematocrit 37L , Mean Corpuscular Volume 91, Mean Corpuscular Hemoglobin 29, Mean Corpuscular Hemoglobin Concent 32, Red Cell Distribution Width 14.0, Platelet Count 305, Mean Platelet Volume 9.4, Neutrophils (%) (Auto) 71, Lymphocytes (%) (Auto) 18, Monocytes (%) (Auto) 8, Eosinophils (%) (Auto) 3, Basophils (%) (Auto) 0, Neutrophils # (Auto) 7.9H, Lymphocytes # (Auto) 2.0, Monocytes # (Auto) 0.9, Eosinophils # (Auto) 0.4H, Basophils # (Auto) 0.0, Sodium Level 140, Potassium Level 4.0, Chloride Level 101, Carbon Dioxide Level 29, Anion Gap 10, Blood Urea Nitrogen 11, Creatinine 0.78, Estimat Glomerular Filtration Rate > 60, BUN/Creatinine Ratio 14, Glucose Level 217H, Calcium Level 8.8, Vancomycin Level Trough 10.8 Microbiology 11/24/19 Gram Stain - Final, Resulted 11/24/19 Anaerobic Culture, Resulted Pending 11/24/19 Surgical Culture - Preliminary, Resulted No growth 11/23/19 MRSA Screen - Final, Complete MRSA not isolated 11/23/19 Urine Culture - Final, Complete NO GROWTH 11/23/19 Blood Culture - Preliminary, Resulted No growth Assessment/Plan Assessment/Plan Assessment/Plan Left second toe/foot diabetic ulcer/abscess Osteomyelitis Methamphetamine Use uncontrolled diabetes type 2 -noncompliant 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
--- NOTE | 2019-11-26 11:37 | Occupational Ther Daily Note ---
OT Current Status-Daily Note Subjective Pt in bed, agrees to therapy. Pt reports 9/10 pain in left foot. ADL-Treatment Pt agrees to sit up in chair. Pt supine to sit with SBA. Don sock with assist. Sit to stand with supervision. Bed linens were partially soiled. Assist required for hygiene. Transfer to chair with FWW, cues for PWB left LE. Pt was assisted to change dirty gown. Assist required secondary to IV. Pt declined bathing or other ADL tasks, states spouse will assist when she arrives. Pt positioned in chair with needs met and nurse aide present after session. Therapy Code Descriptions/Definitions Functional [place] Measure: 0=Not Assessed/NA 4=Minimal Assistance 1=Total Assistance 5=Supervision or Setup 2=Maximal Assistance 6=Modified [place] 3=Moderate Assistance 7=Complete IndependenceSCALE: Activities may be completed with or without assistive devices. 7-Ivtcejvloc-iolwaqk completes the activity by him/herself with no assistance from a helper. 5-Set-up or Clean-up Assistance-helper sets up or cleans up; patient completes activity. [place] assists only prior to or following the activity. 4-Supervision or Touching Assistance-helper provides verbal cues and/or touching/steadying and/or contact guard assistance as patient completes activity. Assistance may be provided throughout the activity or intermittently. 3-Partial/Moderate Assistance-helper does LESS THAN HALF the effort. [place] lifts, holds or supports trunk or limbs, but provides less than half the effort. 2-Substantial/Maximal Assistance-helper does MORE THAN HALF the effort. [place] lifts or holds trunk or limbs and provides more than half the effort. 4-Jerldmhxp-ihnyho does ALL the effort. Patient does none of the effort to complete the activity. Or, the assistance of 2 or more helpers is required for the patient to complete the activity. If activity was not attempted, code reason: 7-Patient Refused. 9-Not Applicable-not attempted and the patient did not perform the activity before the current illness, exacerbation or injury. 10-Not Attempted due to Environmental Limitations-(lack of equipment, weather restraints, etc.). 88-Not Attempted due to Medical Conditions or Safety Concerns. OT Reconsignment Clerk Goals Reconsignment Clerk Goals Time Frame: Dec 02, 2019 Oral Hygiene (QC): 6 Toileting Hygiene (QC): 6 Shower/Bathe Self (QC): 5 Upper Body Dressing (QC): 5 Lower Body Dressing (QC): 5 Additional Goals: 1-Demonstrate ADL Tasks, 2-Verbalize Understanding, 3-Improve Strength/Iveth 1=Demonstrate adherence to instructed precautions during ADL tasks. 2=Patient will verbalize/demonstrate understanding of assistive devices/modifications for ADL. 3=Patient will improve strength/tolerance for activity to enable patient to pe rform ADL's. OT Education/Plan Problem List/Assessment Discharge Recommendations Plan/Recommendations: Continue POC Treatment Plan/Plan of Care Patient would benefit from OT for education, treatment and training to promote independence in ADL's, mobility, safety and/or upper extremity function for ADL's. Plan of Care: ADL Retraining, Functional Mobility, UE Funct Exercise/Act Treatment Duration: Dec 02, 2019 Frequency: 5 times per week Estimated Hrs Per Day: .25 hour per day Rehab Potential: Guarded Time/GCodes Start Time: 11:08 Stop Time: 11:25 Total Time Billed (hr/min): 17 Billed Treatment Time 1 visit, ADL(17minutes) DONAL BENITEZ OT Nov 26, 2019 11:37
--- NOTE | 2019-11-26 11:59 | Progress Note - Surgery ---
Subjective Date Seen by a Provider: Nov 26, 2019 Time Seen by a Provider: 11:39 Subjective/Events-last exam Patient having pain control issues. Denies n/v fever sweats chills shortness of breath or chest pain. Objective Exam Vital Signs Date Time Temp Pulse Resp B/P (MAP) Pulse Ox O2 Delivery O2 Flow Rate FiO2 11/26/19 08:00 93 Nasal Cannula 2.00 11/26/19 08:00 37.0 90 20 145/77 (99) 93 Nasal Cannula 2.00 11/26/19 04:40 37.1 93 20 179/81 (113) 95 Nasal Cannula 3.00 11/26/19 00:10 37.8 96 22 166/78 (107) 92 Room Air 11/25/19 22:50 Nasal Cannula 2.00 11/25/19 20:30 92 Room Air 11/25/19 20:00 37.5 93 18 177/69 (105) 92 Room Air 11/25/19 16:00 37.4 93 18 123/74 (90) 92 Room Air I & O 11/26/19 07:00 Intake Total 5243.5 ml Output Total 5325 ml Balance -81.5 ml Capillary Refill : Less Than 3 SecondsLess Than 3 Seconds General Appearance: No Apparent Distress, Chronically ill HEENT: PERRL/EOMI Neck: Non Tender Respiratory: Chest Non Tender, No Accessory Muscle Use, No Respiratory Distress Cardiovascular: Regular Rate, Rhythm Gastrointestinal: non tender, soft, no organomegaly Extremity: Pedal Edema, Other (Left foot open wound, with min erythema and no purulent drainage) Neurologic/Psychiatric: Alert, Oriented x3 Skin: Normal Color, Warm/Dry, Erythema (minimal around incision), Other (wound clean no purulent drainage) Lymphatic: No Adenopathy Results Lab Laboratory Tests 11/25/19 14:40: Glucometer 358H 11/25/19 20:09: Glucometer 318H 11/26/19 04:57: White Blood Count 11.2H, Red Blood Count 4.01L, Hemoglobin 11.6L, Hematocrit 37L , Mean Corpuscular Volume 91, Mean Corpuscular Hemoglobin 29, Mean Corpuscular Hemoglobin Concent 32, Red Cell Distribution Width 14.0, Platelet Count 305, Mean Platelet Volume 9.4, Neutrophils (%) (Auto) 71, Lymphocytes (%) (Auto) 18, Monocytes (%) (Auto) 8, Eosinophils (%) (Auto) 3, Basophils (%) (Auto) 0, Neutrophils # (Auto) 7.9H, Lymphocytes # (Auto) 2.0, Monocytes # (Auto) 0.9, Eosinophils # (Auto) 0.4H, Basophils # (Auto) 0.0, Sodium Level 140, Potassium Level 4.0, Chloride Level 101, Carbon Dioxide Level 29, Anion Gap 10, Blood Urea Nitrogen 11, Creatinine 0.78, Estimat Glomerular Filtration Rate > 60, BUN/Creatinine Ratio 14, Glucose Level 217H, Calcium Level 8.8, Vancomycin Level Trough 10.8 Microbiology 11/24/19 Gram Stain - Final, Resulted 11/24/19 Anaerobic Culture, Resulted Pending 11/24/19 Surgical Culture - Preliminary, Resulted No growth 11/23/19 MRSA Screen - Final, Complete MRSA not isolated 11/23/19 Urine Culture - Final, Complete NO GROWTH 11/23/19 Blood Culture - Preliminary, Resulted No growth Assessment/Plan Assessment/Plan Assessment/Plan Left second toe/foot diabetic ulcer/abscess Osteomyelitis Methamphetamine Use uncontrolled diabetes type 2 -noncompliant 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
[2019-11-26] MEDS: inSUlin ASPART (NovoLOG) 1 UNIT/0.01 ML (CHARGE PER UNIT) SC SCH ×3 (12:01→20:55)
--- NOTE | 2019-11-26 12:01 | Physical Therapy Daily Note ---
PT Daily Note-Current Subjective 10/10 Pain level in left foot RN informed about pain level to get medication. Pain Numeric Pain Scale: 10-Worst Possible Pain Location: Left Location Body Site: Foot Pain Description: Acute Appearance Patient returned to recliner feet up with call light and tray in reach. Mental Status Patient Orientation: Person, Place, Eyes Open Attachments: IV Transfers SCALE: Activities may be completed with or without assistive devices. 9-Dlzdmfawai-nruvynl completes the activity by him/herself with no assistance from a helper. 5-Set-up or Clean-up Assistance-helper sets up or cleans up; patient completes activity. [place] assists only prior to or following the activity. 4-Supervision or Touching Assistance-helper provides verbal cues and/or touching/steadying and/or contact guard assistance as patient completes activity. Assistance may be provided throughout the activity or intermittently. 3-Partial/Moderate Assistance-helper does LESS THAN HALF the effort. [place] lifts, holds or supports trunk or limbs, but provides less than half the effort. 2-Substantial/Maximal Assistance-helper does MORE THAN HALF the effort. [place] lifts or holds trunk or limbs and provides more than half the effort. 7-Tuxqcyjfm-xmdhur does ALL the effort. Patient does none of the effort to complete the activity. Or, the assistance of 2 or more helpers is required for the patient to complete the activity. If activity was not attempted, code reason: 7-Patient Refused. 9-Not Applicable-not attempted and the patient did not perform the activity before the current illness, exacerbation or injury. 10-Not Attempted due to Environmental Limitations-(lack of equipment, weather restraints, etc.). 88-Not Attempted due to Medical Conditions or Safety Concerns. Sit to Stand (QC): 4 (CGA) Chair/Hwl-xx-Oypiy Xfer(QC): 4 (CGA) verbal cues for hand and feet placement Weight Bearing Right Lower Extremity: Right Weight Bearing/Tolerated Left Lower Extremity: Left Partial Weight Bearing Gait Training Does the Patient Walk?: Yes Distance: 175 Walk 10 feet (QC): 4 (CGA) Walk 50 ft with 2 Turns(QC): 4 (CGA) Walk 150 ft (QC): 4 (CGA) Gait Assistive Device: FWW antalgic gait with pain in L foot. Patient is self limiting due to pain but with motivation will complete therapy session. Patient's doctor told PT to ambulate patient farther then the room door. Patient ambulates with post op shoe on L foot. Exercises Seated Therapy Exercises: Ankle pumps (20) Assessment Current Status: Good Progress Patient is making progress with ambulation distance. Still has 10/10 of the L foot post ambulation. Next session will continue with ambulation distance to mimic the distance patient need to get into his home. SW will be informed of patient's desire of FWW for in home ambulation. PT Short Term Goals Short Term Goals Time Frame: Dec 03, 2019 Roll Left & Right: 5 Sit to lyin Lying to sitting on side of be: 5 Sit to stand: 5 Chair/etq-fu-wobdb transfer: 5 Walk 10 feet: 5 Walk 50 feet with two turns: 4 Walk 150 feet: 4 PT Assistant Professor Of Communication Goals Alf Goals PT Alf Goals Time Frame: Dec 05, 2019 Roll Left & Right (QC): 6 Sit to Lying (QC): 6 Lying-Sitting on Side/Bed(QC): 6 Sit to Stand (QC): 6 Chair/Gjl-am-Vruzi Xfer(QC): 6 Toilet Transfer (QC): 6 Does the Patient Walk: Yes Walk 10 feet (QC): 6 Walk 50ft with 2 Turns (QC): 5 Walk 150 ft (QC): 5 PT Plan Problem List Problem List: Activity Tolerance, Functional Strength, Safety, Balance, Gait, Transfer, Bed Mobility, ROM Treatment/Plan Treatment Plan: Continue Plan of Care Treatment Plan: Bed Mobility, Concurrent Therapy, Education, Functional Activity Iveth, Functional Strength, Group Therapy, Gait, Safety, Therapeutic Exercise, Transfers Treatment Duration: Dec 05, 2019 Frequency: 6 times per week Estimated Hrs Per Day: .25 hour per day Patient and/or Family Agrees t: Yes Safety Risks/Education Patient Education: Gait Training, Disease Process, Safety Issues Teaching Recipient: Patient Teaching Methods: Demonstration, Handout, Discussion, Audiovisual Response to Teaching: Verbalize Understanding, Return Demonstration, Reinforcement Needed Time/GCodes Time In: 1130 Time Out: 1148 Total Billed Treatment Time: 18 Total Billed Treatment 1 visit GT 18' MCKAYAL RECIO PT Nov 26, 2019 12:01
--- NOTE | 2019-11-26 12:26 | NUR ---
CM/SS: Visited with pt as to plan for discharge DME: Bariatric front wheeled walker Plan: Pt will return home with with a Bariatric front wheeled walker. Pt reports doing ok, and is aware that he will be able to discharge on tomorrow. Pt would like a scooter. This worker shares with pt generally people with similar surgery don't get a motorized scooter. Pt given the choice list, and pt would like to get his walker from [facility]. Pt is informed that they usually are able to deliver the walker to the hospital prior to the time that he leaves. Pt verbalizes understanding.
--- NOTE | 2019-11-26 14:51 | Progress Note ---
Subjective Subjective/Events-last exam Patient states that he is having pain. Nurse in changing dressing and patient is on his phone. Tolerating PO diet. Working with PT today Review of Systems Pulmonary: No Dyspnea, No Cough Cardiovascular: No: Chest Pain, Palpitations Gastrointestinal: No: Nausea, Vomiting, Abdominal Pain, Diarrhea, Constipation Musculoskeletal: foot pain Neurological: Weakness, Incoordination Objective Exam Last Set of Vital Signs Vital Signs Date Time Temp Pulse Resp B/P (MAP) Pulse Ox O2 Delivery O2 Flow Rate FiO2 11/26/19 08:00 93 Nasal Cannula 2.00 11/26/19 08:00 37.0 90 20 145/77 (99) Capillary Refill : Less Than 3 SecondsLess Than 3 Seconds I&O Intake and Output 11/26/19 00:00 Intake Total 5643.5 ml Output Total 6425 ml Balance -781.5 ml Intake Oral 5126 ml IV Total 517.5 ml Output Urine Total 6425 ml # Bowel Movements 1 General: Alert, Oriented X3, Cooperative, No Acute Distress Lungs: Clear to Auscultation, Normal Air Movement Heart: Regular Rate, No Murmurs Abdomen: Normal Bowel Sounds, Soft, No Tenderness, No Masses Extremities: Other (Left foot: Minimal drainage from wound, erythema improving, trace swelling present) Neuro: Other (Diminished sensation LE bilaterally) Results/Procedures Lab Laboratory Tests 11/25/19 20:09: Glucometer 318H 11/26/19 04:57: White Blood Count 11.2H, Red Blood Count 4.01L, Hemoglobin 11.6L, Hematocrit 37L , Mean Corpuscular Volume 91, Mean Corpuscular Hemoglobin 29, Mean Corpuscular Hemoglobin Concent 32, Red Cell Distribution Width 14.0, Platelet Count 305, Mean Platelet Volume 9.4, Neutrophils (%) (Auto) 71, Lymphocytes (%) (Auto) 18, Monocytes (%) (Auto) 8, Eosinophils (%) (Auto) 3, Basophils (%) (Auto) 0, Neutrophils # (Auto) 7.9H, Lymphocytes # (Auto) 2.0, Monocytes # (Auto) 0.9, Eosinophils # (Auto) 0.4H, Basophils # (Auto) 0.0, Sodium Level 140, Potassium Level 4.0, Chloride Level 101, Carbon Dioxide Level 29, Anion Gap 10, Blood Urea Nitrogen 11, Creatinine 0.78, Estimat Glomerular Filtration Rate > 60, BUN/Creatinine Ratio 14, Glucose Level 217H, Calcium Level 8.8, Vancomycin Level Trough 10.8 11/26/19 11:22: Glucometer 345H Microbiology 11/24/19 Gram Stain - Final, Resulted 11/24/19 Anaerobic Culture, Resulted Pending 11/24/19 Surgical Culture - Preliminary, Resulted No growth 11/23/19 MRSA Screen - Final, Complete MRSA not isolated 11/23/19 Urine Culture - Final, Complete NO GROWTH 11/23/19 Blood Culture - Preliminary, Resulted No growth Assessment/Plan Assessment/Plan (1) Osteomyelitis of left foot Status: Acute Assessment & Plan: 11/23: IV antibiotics, to surgery today with Dr Peres, Culture sent, will continue IV until sensitivities return 11/24: POD#1, Cultures pending 11/25: POD#2, started on GAS GENERATOR OPERATOR due to increasing pain, surgical cultures pending Qualifiers: Qualified Codes: M86.272 - Subacute osteomyelitis, left ankle and foot (2) Cellulitis of left lower extremity Status: Acute Assessment & Plan: 11/23: Patient to surgery today with Dr Peres for amputation (3) Insulin dependent diabetes mellitus with complications Status: Chronic Assessment & Plan: 11/23: SSI, A1c pending (4) 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
[2019-11-26 15:34] VITALS: BP 157/87
[2019-11-26] MEDS: VANCOMYCIN INJECTION 2,000 MG in NS IV 500 ML 500 ML IV SCH (17:40)
[2019-11-26 20:47] VITALS: BP 162/89
[2019-11-27 00:23] VITALS: BP 128/67
[2019-11-27] MEDS: oxyCODONE/APAP 10/325MG (PERCOCET 10) TABLET PO PRN ×2 (03:03→07:58)
[2019-11-27 04:38] VITALS: BP 114/74
[2019-11-27 04:51] LABS: BASOPHILS % (AUTO) 0 % (0-10); EOSINOPHILS # (AUTO) 0.3 10^3/uL (0.0-0.3); EOSINOPHILS % (AUTO) 2 % (0-10); HEMATOCRIT 37 % (40-54); HEMOGLOBIN 11.8 G/DL (13.3-17.7); LYMPHOCYTES % (AUTO) 16 % (12-44); MEAN CORPUSCULAR HEMOGLOBIN 29 PG (25-34); MEAN CORPUSCULAR HGB CONC 32 G/DL (32-36); MEAN CORPUSCULAR VOLUME 90 FL (80-99); MEAN PLATELET VOLUME 9.4 FL (7.4-10.4); MONOCYTES % (AUTO) 8 % (0-12); NEUTROPHILS # (AUTO) 8.9 X 10^3 (1.8-7.8); NEUTROPHILS % (AUTO) 73 % (42-75); PLATELET COUNT 321 10^3/uL (130-400); RED CELL DISTRIBUTION WIDTH 13.9 % (10.0-14.5); WHITE BLOOD COUNT 12.1 10^3/uL (4.3-11.0)
[2019-11-27 05:10] LABS: BUN/CREATININE RATIO 16; CALCIUM 9.2 MG/DL (8.5-10.1); CARBON DIOXIDE 31 MMOL/L (21-32); CHLORIDE 99 MMOL/L (98-107); CREATININE SERUM 0.74 MG/DL (0.60-1.30); GFR ESTIMATED > 60; GLUCOSE 196 MG/DL (70-105); POTASSIUM 3.7 MMOL/L (3.6-5.0); SODIUM 140 MMOL/L (135-145)
[2019-11-27] MEDS: VANCOMYCIN INJECTION 2,000 MG in NS IV 500 ML 500 ML IV SCH (06:14)
[2019-11-27] MEDS: CYCLOBENZAPRINE 10 MG (FLEXERIL) TAB PO PRN (07:58)
[2019-11-27] MEDS: cloNIDine 0.1 MG (CATAPRES) TAB PO SCH ×2 (07:59→12:55)
[2019-11-27] MEDS: FUROSEMIDE 40 MG (LASIX) TAB PO SCH (07:59)
[2019-11-27] MEDS: GABAPENTIN 300 MG (NEURONTIN) CAP PO SCH ×2 (07:59→12:55)
[2019-11-27] MEDS: ENOXAPARIN 40 MG/0.4 ML (LOVENOX) SYR SC SCH (07:59)
[2019-11-27] MEDS: amLODIPine 10 MG (NORVASC) TAB PO SCH (07:59)
[2019-11-27 08:00] VITALS: BP 166/82
[2019-11-27] MEDS ORDERED: HYDROmorphone 2 MG/ML VIAL (DILAUDID) IV ONE (10:15)
[2019-11-27] MEDS ORDERED: oxyCODONE/APAP 10/325MG (PERCOCET 10) TABLET PO PRN (10:30)
[2019-11-27] MEDS: DAKIN'S 1/4 STRENGTH (0.125%) 473 ML BTL TOP SCH (10:42)
[2019-11-27] MEDS: inSUlin ASPART (NovoLOG) 1 UNIT/0.01 ML (CHARGE PER UNIT) SC SCH ×2 (10:44→15:40)
--- NOTE | 2019-11-27 11:23 | Physical Therapy Daily Note ---
PT Daily Note-Current Subjective Pain 04/19 Patient activated pain pump prior to session. Pain in L foot Appearance Patient returned to recliner in room with feet up, post op shoe off, pillow under feet, and call light/ tray in reach. Mental Status Patient Orientation: Person, Place, Eyes Open Attachments: IV Transfers SCALE: Activities may be completed with or without assistive devices. 6-Hkbjgeasix-vwbznad completes the activity by him/herself with no assistance from a helper. 5-Set-up or Clean-up Assistance-helper sets up or cleans up; patient completes activity. [place] assists only prior to or following the activity. 4-Supervision or Touching Assistance-helper provides verbal cues and/or touching/steadying and/or contact guard assistance as patient completes activity. Assistance may be provided throughout the activity or intermittently. 3-Partial/Moderate Assistance-helper does LESS THAN HALF the effort. [place] lifts, holds or supports trunk or limbs, but provides less than half the effort. 2-Substantial/Maximal Assistance-helper does MORE THAN HALF the effort. [place] lifts or holds trunk or limbs and provides more than half the effort. 4-Vfhkphhio-vcspqb does ALL the effort. Patient does none of the effort to complete the activity. Or, the assistance of 2 or more helpers is required for the patient to complete the activity. If activity was not attempted, code reason: 7-Patient Refused. 9-Not Applicable-not attempted and the patient did not perform the activity before the current illness, exacerbation or injury. 10-Not Attempted due to Environmental Limitations-(lack of equipment, weather restraints, etc.). 88-Not Attempted due to Medical Conditions or Safety Concerns. Sit to Lying (QC): 5 Sit to Stand (QC): 4 (CGA) Chair/Fdf-ak-Aypor Xfer(QC): 4 (SBA) Weight Bearing Right Lower Extremity: Right Weight Bearing/Tolerated Left Lower Extremity: Left Partial Weight Bearing Gait Training Does the Patient Walk?: Yes Distance: 250 Walk 10 feet (QC): 4 Walk 50 ft with 2 Turns(QC): 4 Walk 150 ft (QC): 4 Gait Assistive Device: FWW Patient ambulated 50% CGA 50% SBA with forward posture, antalgic gait, verbal cues for safe mechanics given. Exercises Seated Therapy Exercises: Ankle pumps (20), Long arc quads, Hip abd/add Seated Reps: 10 Assessment Current Status: Good Progress Patient is self limiting due to pain but able to safely ambulate. If patient was to be DC home in PT professional opinion patient would be able to safely walk to back door with PWB left foot, FWW, family assistance and extra time. PT Short Term Goals Short Term Goals Time Frame: Dec 03, 2019 Roll Left & Right: 5 Sit to lyin Lying to sitting on side of be: 5 Sit to stand: 5 Chair/wmi-pw-awgzg transfer: 5 Walk 10 feet: 5 Walk 50 feet with two turns: 4 Walk 150 feet: 4 PT Nursing Home Goals Nursing Home Goals PT Nursing Home Goals Time Frame: Dec 05, 2019 Roll Left & Right (QC): 6 Sit to Lying (QC): 6 Lying-Sitting on Side/Bed(QC): 6 Sit to Stand (QC): 6 Chair/Irt-or-Zudkp Xfer(QC): 6 Toilet Transfer (QC): 6 Does the Patient Walk: Yes Walk 10 feet (QC): 6 Walk 50ft with 2 Turns (QC): 5 Walk 150 ft (QC): 5 PT Plan Problem List Problem List: Activity Tolerance, Functional Strength, Safety, Balance, Gait, Transfer, Bed Mobility Treatment/Plan Treatment Plan: Continue Plan of Care Treatment Plan: Bed Mobility, Concurrent Therapy, Education, Functional Activi ty [place], Functional Strength, Group Therapy, Gait, Safety, Therapeutic Exercise, Transfers Treatment Duration: Dec 05, 2019 Frequency: 6 times per week Estimated Hrs Per Day: .25 hour per day Patient and/or Family Agrees t: Yes Safety Risks/Education Patient Education: Gait Training, Reviewed Use of Ice, Disease Process, Safety Issues Teaching Recipient: Patient Teaching Methods: Demonstration, Discussion, Audiovisual Response to Teaching: Verbalize Understanding, Return Demonstration Time/GCodes Time In: 1034 Time Out: 1056 Total Billed Treatment Time: 22 Total Billed Treatment 1 visit FA 22' MCKAYLA RECIO PT Nov 27, 2019 11:23
[2019-11-27 12:00] VITALS: BP 163/81
--- NOTE | 2019-11-27 12:27 | Discharge Summary ---
Discharge Summary Reconcile Patient Problems Problems Reviewed?: Yes Instructions for Patient [facility] [place] [facility], Assessment/Instructions Left DM foot wound DM neuropathy Poorly controlled DM IDDM HTN Left LE Cellulitis Physician to follow Patient: Master Discharge Diet for Home: ADA Diet Hospital Course Date of Admission: Nov 23, 2019 at 03:16 Admission Diagnosis : Family Physician/Provider: Anju Thao MD Date of Discharge: 11/27/19 Discharge Diagnosis: Left DM foot Wound Left 2nd toe Osteomyelitis DM Neuropathy Uncontrolled IDDM HTN Left LE Cellulitis Hospital Course: 49 yo M with poorly controlled DM that presented with cellulitis to Left LE and wound to 2nd toe. He was started on IV antibiotics and the cellulitis improved but he was found to have osteomyelitis. Dr Peres was consulted and recommended amputation and debridement of wound. Surgery went well and he was able to pre serve the rest of his foot and remaining toes. Discussed with patient how he needs to make drastic changes to control his DM. Labs and Pending Lab Test: Laboratory Tests 11/26/19 15:15: Glucometer 350H 11/26/19 20:16: Glucometer 228H 11/27/19 04:15: White Blood Count 12.1H, Red Blood Count 4.05L, Hemoglobin 11.8L, Hematocrit 37L , Mean Corpuscular Volume 90, Mean Corpuscular Hemoglobin 29, Mean Corpuscular Hemoglobin Concent 32, Red Cell Distribution Width 13.9, Platelet Count 321, Mean Platelet Volume 9.4, Neutrophils (%) (Auto) 73, Lymphocytes (%) (Auto) 16, Monocytes (%) (Auto) 8, Eosinophils (%) (Auto) 2, Basophils (%) (Auto) 0, Neutrophils # (Auto) 8.9H, Lymphocytes # (Auto) 2.0, Monocytes # (Auto) 1.0, Eosinophils # (Auto) 0.3, Basophils # (Auto) 0.0, Sodium Level 140, Potassium Level 3.7, Chloride Level 99, Carbon Dioxide Level 31, Anion Gap 10, Blood Urea Nitrogen 12, Creatinine 0.74, Estimat Glomerular Filtration Rate > 60, BUN/Creatinine Ratio 16, Glucose Level 196H, Calcium Level 9.2 11/27/19 09:02: Glucometer 363H Microbiology 11/24/19 Gram Stain - Final, Complete 11/24/19 Anaerobic Culture - Final, Complete No anaerobes isolated 11/24/19 Surgical Culture - Final, Complete Strep agalactiae Group B 11/23/19 MRSA Screen - Final, Complete MRSA not isolated 11/23/19 Urine Culture - Final, Complete NO GROWTH 11/23/19 Blood Culture - Preliminary, Resulted No growth Home Meds Active Reported Percocet 10-325 mg Tablet (Oxycodone HCl/Acetaminophen) 1 Each Tablet 1 Ea PO Q4H PRN Clonidine HCl 0.1 Mg Tablet 0.1 Mg PO TID Levemir Flextouch (Insulin Detemir) 100 Unit/1 Ml Insuln.pen 30 Unit SQ HS Gabapentin 300 Mg Capsule 300 Mg PO TID Zyrtec (Cetirizine HCl) 10 Mg Tablet 10 Mg PO DAILY Metformin HCl 1,000 Mg Tablet 1,000 Mg PO BID Amlodipine Besylate 10 Mg Tablet 10 Mg PO DAILY Furosemide 40 Mg Tablet 40 Mg PO DAILY Proair Hfa (Albuterol Sulfate) 1 Puff Puff 2 Puff PO Q6H PRN Cyclobenzaprine HCl 10 Mg Tablet 10 Mg PO TID PRN Trulicity (Dulaglutide) 1.5 Mg/0.5 Ml Pen.injctr 1.[address] SC [address] Cons[address] Dr Peres: General Surgery Patient Allergies: Coded Allergies: No Known Drug Allergies (Unverified , 10/12/17) Height (Feet): 5 Height (Inches): 9.00 Weight (Pounds): 389 Weight (Ounces): 0.0 New Medications: Amoxicillin (Amoxicillin) 500 Mg Capsule 500 MG PO BID for 14 Days, #28 CAP Continued Medications: Albuterol Sulfate (Proair Hfa) 1 Puff Puff 2 PUFF PO Q6H PRN for SHORTNESS OF BREATH Amlodipine Besylate (Amlodipine Besylate) 10 Mg Tablet 10 MG PO DAILY Cetirizine HCl (Zyrtec) 10 Mg Tablet 10 MG PO DAILY, TAB Clonidine HCl (Clonidine HCl) 0.1 Mg Tablet 0.1 MG PO TID, TAB Cyclobenzaprine HCl (Cyclobenzaprine HCl) 10 Mg Tablet 10 MG PO TID PRN for MUSCLE SPASMS Dulaglutide (Trulicity) 1.5 Mg/0.5 Ml Pen.injctr 1.5 MG SC SUNDAY Furosemide (Furosemide) 40 Mg Tablet 40 MG PO DAILY Gabapentin (Gabapentin) 300 Mg Capsule 300 MG PO TID, CAP Insulin Detemir (Levemir Flextouch) 100 Unit/1 Ml Insuln.pen 30 UNIT SQ HS, EA Metformin HCl (Metformin HCl) 1,000 Mg Tablet 1000 MG PO BID Discontinued Medications: Oxycodone HCl/Acetaminophen (Percocet 10-325 mg Tablet) 1 Each Tablet 1 EA PO Q4H PRN for PAIN-MODERATE (5-7), TAB Home Health Need/Face to Face Date of Face to Face: Nov 27, 2019 Clinical Findings: Generalized weakness and fatigue, Instability, Unsteady gait, Wound infection I have seen Pt [id number]: Yes Discharged To: Home Diagnosis/Conditions: See Above Patient is Homebound due to: Luiza fall risk due to instabilty, Muscle weakness, Pain w/ambulation Homebound Status Due to the above stated illness, injury or surgical procedure (medical condition or diagnosis) and associated clinical findings, the patient is homebound because of his/her inability to leave home except with aid of a supportive device and/or person AND leaving the home requires a considerable and taxing effort or is medically contraindicated. Pt req the following assistanc: Aid of another person Home Health Nursing Orders Home Health Services Order: Nursing Services, Wound Care-Eval/Treat Home Health Infusion Therapy Line Start Date: Nov 23, 2019 Certify Stmt I certify that this patient is under my care and that I, a nurse practitioner or a physician; a outreach assistant working with me, had a face to face encounter that - meets the physician face to face encounter requirements with this patient as dated. Discharge Physical Exam General: Alert, Oriented X3, Cooperative, No Acute Distress Lungs: Clear to Auscultation, Normal Air Movement Heart: Regular Rate, No Murmurs Abdomen: Normal Bowel Sounds, Soft, No Tenderness, No Masses Extremities: Other (Left LE with improving swelling and erythema, wound dressed at this time with minimal drainage) Neuro: Strength at 5/5 X4 Ext, Cranial Nerves 3-12 NL, Other (Diminished sensation to bilateral LE) ANJU THAO MD Nov 27, 2019 12:25
[2019-11-27] MEDS ORDERED: AMOX500C2 PO (12:33)
[2019-11-27] MEDS ORDERED: OXYC1TAB12 PO (13:13)
--- NOTE | 2019-11-27 14:32 | NUR ---
CM/SS: Visited with pt as to plan for discharge Plan: Pt will discharge to home with Home Care Services agency to be determined Summary: Referrals made to [facility] per patient choice- [facility] declined the referral as the insurance is not within home care company's network. Pt requested to pick another agency. Pt chose [facility]. [facility] declined pt's admission as well based on staffing. Referral made to [facility]; awaiting acceptance of referral. Pt is informed of the above and reports he does not care which home care agency he uses. Addendum: 11/27/19 at 1522 by ALIVIA CHRISTIANSEN [facility] will accept the pt for Home Care service
[2019-11-27 15:41] VITALS: BP 163/81
== END 2019-11-27 15:47 | disposition home health service (06) | DRG 854 ==
LOC: EDUNIT# 01:32 → ER 01:35 → 4TH 03:16
PROVIDERS: ADMIT Internal Medicine; ATTEND Internal Medicine
PROC: 0KBW0ZZ Excision of Left Foot Muscle, Open Approach (ICD-10-PCS; 2019-11-24)
PROC: 0Y6N0ZB Detachment at Left Foot, Partial 2nd Ray, Open Approach (ICD-10-PCS; principal; 2019-11-24 13:17)
DX: A41.9 Sepsis, unspecified organism (principal); E11.69 Type 2 diabetes mellitus with other specified complication; M86.9 Osteomyelitis, unspecified; L97.506 Non-pressure chronic ulcer of other part of unspecified foot with bone involvement without evidence of necrosis; L03.116 Cellulitis of left lower limb; L02.612 Cutaneous abscess of left foot; Z68.41 Body mass index [BMI] 40.0-44.9, adult; E11.65 Type 2 diabetes mellitus with hyperglycemia; F32.9 Major depressive disorder, single episode, unspecified; E66.01 Morbid (severe) obesity due to excess calories; I10 Essential (primary) hypertension; F41.9 Anxiety disorder, unspecified; G47.30 Sleep apnea, unspecified; K21.9 Gastro-esophageal reflux disease without esophagitis; M17.0 Bilateral primary osteoarthritis of knee; J44.9 Chronic obstructive pulmonary disease, unspecified; Z79.4 Long term (current) use of insulin; Z87.891 Personal history of nicotine dependence; Z91.14 Patient's other noncompliance with medication regimen; F15.10 Other stimulant abuse, uncomplicated
CPT/HCPCS: 36415; 71045; 80048; 80053; 80202; 80306; 81000; 82962; 83036; 83605; 84145; 85007; 85025; 85027; 85610; 85730; 86141; 87040; 87070; 87075; 87077; 87081; 87088; 87205; 88304; 88305; 88311; 94760

== ENCOUNTER → 2019-12-02 | Outpatient (CLI) | payer MEDICARE | LOC: WOUNDCARE 11:57 | PROVIDERS: ATTEND Surgery | DX: E11.621 Type 2 diabetes mellitus with foot ulcer (principal); E11.42 Type 2 diabetes mellitus with diabetic polyneuropathy; E11.65 Type 2 diabetes mellitus with hyperglycemia; L97.416 Non-pressure chronic ulcer of right heel and midfoot with bone involvement without evidence of necrosis; Z89.422 Acquired absence of other left toe(s) | CPT/HCPCS: 99213 ==

== ENCOUNTER → 2019-12-09 | Outpatient (CLI) | payer MEDICARE | LOC: WOUNDCARE 12:47 | PROVIDERS: ATTEND Surgery | DX: E11.621 Type 2 diabetes mellitus with foot ulcer (principal); E11.42 Type 2 diabetes mellitus with diabetic polyneuropathy; E11.65 Type 2 diabetes mellitus with hyperglycemia; L97.426 Non-pressure chronic ulcer of left heel and midfoot with bone involvement without evidence of necrosis; Z89.422 Acquired absence of other left toe(s) | CPT/HCPCS: 11043; 11046 ==

== ENCOUNTER → 2019-12-16 | Outpatient (CLI) | payer MEDICARE | LOC: WOUNDCARE 12:43 | PROVIDERS: ATTEND Surgery | DX: E11.621 Type 2 diabetes mellitus with foot ulcer (principal); E11.42 Type 2 diabetes mellitus with diabetic polyneuropathy; E11.65 Type 2 diabetes mellitus with hyperglycemia; L97.423 Non-pressure chronic ulcer of left heel and midfoot with necrosis of muscle; Z89.422 Acquired absence of other left toe(s) | CPT/HCPCS: 99213 ==

== ENCOUNTER → 2019-12-23 | Outpatient (CLI) | payer MEDICARE | LOC: WOUNDCARE 12:34 | PROVIDERS: ATTEND Surgery | DX: E11.621 Type 2 diabetes mellitus with foot ulcer (principal); E11.42 Type 2 diabetes mellitus with diabetic polyneuropathy; E11.65 Type 2 diabetes mellitus with hyperglycemia; L97.423 Non-pressure chronic ulcer of left heel and midfoot with necrosis of muscle; Z89.422 Acquired absence of other left toe(s) | CPT/HCPCS: 11043 ==

== ENCOUNTER → 2020-01-06 | Outpatient (CLI) | payer MEDICARE | LOC: WOUNDCARE 12:33 | PROVIDERS: ATTEND Surgery | DX: E11.621 Type 2 diabetes mellitus with foot ulcer (principal); E11.42 Type 2 diabetes mellitus with diabetic polyneuropathy; E11.65 Type 2 diabetes mellitus with hyperglycemia; L97.422 Non-pressure chronic ulcer of left heel and midfoot with fat layer exposed; Z89.422 Acquired absence of other left toe(s); L92.8 Other granulomatous disorders of the skin and subcutaneous tissue | CPT/HCPCS: 17250 ==

== ENCOUNTER → 2020-01-13 | Outpatient (CLI) | payer MEDICARE | LOC: WOUNDCARE 12:40 | PROVIDERS: ATTEND Surgery | DX: E11.621 Type 2 diabetes mellitus with foot ulcer (principal); E11.42 Type 2 diabetes mellitus with diabetic polyneuropathy; E11.65 Type 2 diabetes mellitus with hyperglycemia; L97.421 Non-pressure chronic ulcer of left heel and midfoot limited to breakdown of skin; L97.422 Non-pressure chronic ulcer of left heel and midfoot with fat layer exposed; Z89.422 Acquired absence of other left toe(s); L92.8 Other granulomatous disorders of the skin and subcutaneous tissue; L97.423 Non-pressure chronic ulcer of left heel and midfoot with necrosis of muscle | CPT/HCPCS: 11042 ==

== ENCOUNTER → 2020-01-20 | Outpatient (CLI) | payer MEDICARE | LOC: WOUNDCARE 12:47 | PROVIDERS: ATTEND Surgery | DX: E11.621 Type 2 diabetes mellitus with foot ulcer (principal); E11.42 Type 2 diabetes mellitus with diabetic polyneuropathy; E11.65 Type 2 diabetes mellitus with hyperglycemia; L97.422 Non-pressure chronic ulcer of left heel and midfoot with fat layer exposed; L97.421 Non-pressure chronic ulcer of left heel and midfoot limited to breakdown of skin; Z89.422 Acquired absence of other left toe(s) | CPT/HCPCS: 11042 ==

== ENCOUNTER → 2020-02-03 | Outpatient (CLI) | payer MEDICARE | LOC: WOUNDCARE 13:08 | PROVIDERS: ATTEND Surgery | DX: E11.621 Type 2 diabetes mellitus with foot ulcer (principal); E11.42 Type 2 diabetes mellitus with diabetic polyneuropathy; E11.65 Type 2 diabetes mellitus with hyperglycemia; L97.422 Non-pressure chronic ulcer of left heel and midfoot with fat layer exposed; L97.421 Non-pressure chronic ulcer of left heel and midfoot limited to breakdown of skin; E11.52 Type 2 diabetes mellitus with diabetic peripheral angiopathy with gangrene; Z89.422 Acquired absence of other left toe(s) | CPT/HCPCS: 11042 ==

== ENCOUNTER → 2020-02-10 | Outpatient (CLI) | payer MEDICARE | LOC: WOUNDCARE 12:41 | PROVIDERS: ATTEND Surgery | DX: E11.621 Type 2 diabetes mellitus with foot ulcer (principal); E11.52 Type 2 diabetes mellitus with diabetic peripheral angiopathy with gangrene; E11.42 Type 2 diabetes mellitus with diabetic polyneuropathy; E11.65 Type 2 diabetes mellitus with hyperglycemia; I96 Gangrene, not elsewhere classified; L97.421 Non-pressure chronic ulcer of left heel and midfoot limited to breakdown of skin; L97.422 Non-pressure chronic ulcer of left heel and midfoot with fat layer exposed; Z89.422 Acquired absence of other left toe(s) | CPT/HCPCS: 17250 ==

== ENCOUNTER → 2020-02-17 | Outpatient (CLI) | payer MEDICARE | LOC: WOUNDCARE 12:54 | PROVIDERS: ATTEND Surgery | DX: E11.621 Type 2 diabetes mellitus with foot ulcer (principal); E11.42 Type 2 diabetes mellitus with diabetic polyneuropathy; L97.422 Non-pressure chronic ulcer of left heel and midfoot with fat layer exposed; Z89.422 Acquired absence of other left toe(s) | CPT/HCPCS: 99212 ==

== ENCOUNTER → 2020-11-08 | Outpatient (CLI) | payer MEDICARE ==
[~2020-11-08] MED LIST changes: +AMLO-250 PO; +AMLO-251 PO; -AMLO10TA7 PO; -AMLO5TAB9 PO; -CETI10TA21 PO; +CETI10TA49 PO; -CLIN300C11 PO; +CLIN300C12 PO; +CLN.1T PO; -CLON0.1T PO; -LISI40TA PO; +LISI40TA9 PO
== END ==
LOC: LAB 10:58
PROVIDERS: ATTEND Surgery
DX: E11.621 Type 2 diabetes mellitus with foot ulcer (principal); E11.42 Type 2 diabetes mellitus with diabetic polyneuropathy; L97.421 Non-pressure chronic ulcer of left heel and midfoot limited to breakdown of skin

== ENCOUNTER → 2020-11-08 | Outpatient (CLI) | payer MEDICARE | LOC: WOUNDCARE 08:59 | PROVIDERS: ATTEND Surgery | DX: E11.621 Type 2 diabetes mellitus with foot ulcer (principal); E11.42 Type 2 diabetes mellitus with diabetic polyneuropathy; L97.421 Non-pressure chronic ulcer of left heel and midfoot limited to breakdown of skin | CPT/HCPCS: 97597; A6197; G0463 ==

== ENCOUNTER 2021-02-18 20:02 | Emergency (ER) | payer MEDICARE ==
[~2021-02-18 20:02] MED LIST changes: -ACYC400T PO; +ACYC400T21 PO; -OMEP40CA27 PO; +OMEP40CA6 PO
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
== END 2021-02-18 20:18 | disposition left against medical advice (07) ==
LOC: EDUNIT# 20:02 → ER 20:03
DX: M54.2 Cervicalgia (principal); I10 Essential (primary) hypertension; E66.01 Morbid (severe) obesity due to excess calories; G89.29 Other chronic pain; M54.9 Dorsalgia, unspecified; E11.9 Type 2 diabetes mellitus without complications; Z87.891 Personal history of nicotine dependence; Z68.41 Body mass index [BMI] 40.0-44.9, adult; Z79.4 Long term (current) use of insulin; Z79.891 Long term (current) use of opiate analgesic; Z79.899 Other long term (current) drug therapy

== ENCOUNTER → 2021-02-23 | Outpatient (CLI) | payer MEDICARE ==
[~2021-02-23] MED LIST changes: +OMEP40CA27 PO; -OMEP40CA6 PO
[2021-02-23 16:46] LABS: BASOPHILS % (AUTO) 1 % (0-10); EOSINOPHILS # (AUTO) 0.2 10^3/uL (0.0-0.3); EOSINOPHILS % (AUTO) 2 % (0-10); HEMATOCRIT 46 % (40-54); HEMOGLOBIN 15.5 g/dL (13.3-17.7); LYMPHOCYTES # (AUTO) 1.7 10^3/uL (1.0-4.0); LYMPHOCYTES % (AUTO) 21 % (12-44); MEAN CORPUSCULAR HEMOGLOBIN 29 pg (25-34); MEAN CORPUSCULAR HGB CONC 34 g/dL (32-36); MEAN CORPUSCULAR VOLUME 88 fL (80-99); MEAN PLATELET VOLUME 10.1 fL (9.0-12.2); MONOCYTES # (AUTO) 0.7 10^3/uL (0.0-1.0); MONOCYTES % (AUTO) 8 % (0-12); NEUTROPHILS # (AUTO) 5.6 10^3/uL (1.8-7.8); NEUTROPHILS % (AUTO) 68 % (42-75); PLATELET COUNT 177 10^3/uL (130-400); WHITE BLOOD COUNT 8.2 10^3/uL (4.3-11.0)
[2021-02-23 16:52] LABS: ALBUMIN 3.6 GM/DL (3.2-4.5); CHLORIDE 100 MMOL/L (98-107); POTASSIUM 3.8 MMOL/L (3.6-5.0); SODIUM 135 MMOL/L (135-145)
[2021-02-23 16:54] LABS: GLUCOSE 302 MG/DL (70-105); TOTAL PROTEIN 6.6 GM/DL (6.4-8.2)
[2021-02-23 16:55] LABS: CARBON DIOXIDE 25 MMOL/L (21-32)
[2021-02-23 16:56] LABS: BILIRUBIN,TOTAL 0.6 MG/DL (0.1-1.0)
[2021-02-23 16:58] LABS: ALKALINE PHOSPHATASE 95 U/L (40-136); CREATININE SERUM 0.83 MG/DL (0.60-1.30); GFR ESTIMATED > 60
[2021-02-23 16:59] LABS: BUN/CREATININE RATIO 14
[2021-02-23 17:01] LABS: ALANINE AMINOTRANSFERASE 61 U/L (0-55)
== END ==
LOC: LAB 16:21
PROVIDERS: ATTEND Surgery
DX: E11.621 Type 2 diabetes mellitus with foot ulcer (principal)
CPT/HCPCS: 36415; 80053; 83036; 85025

== ENCOUNTER → 2021-02-23 | Outpatient (CLI) | payer MEDICARE | LOC: WOUNDCARE 14:19 | PROVIDERS: ATTEND Surgery | DX: E11.621 Type 2 diabetes mellitus with foot ulcer (principal); E11.42 Type 2 diabetes mellitus with diabetic polyneuropathy; L97.522 Non-pressure chronic ulcer of other part of left foot with fat layer exposed; L97.422 Non-pressure chronic ulcer of left heel and midfoot with fat layer exposed; E11.65 Type 2 diabetes mellitus with hyperglycemia; I70.245 Atherosclerosis of native arteries of left leg with ulceration of other part of foot; E66.01 Morbid (severe) obesity due to excess calories; Z68.42 Body mass index [BMI] 45.0-49.9, adult | CPT/HCPCS: 11042; A6197; G0463 ==

== ENCOUNTER → 2021-02-28 | Outpatient (CLI) | payer MEDICARE | LOC: WOUNDCARE 12:04 | PROVIDERS: ATTEND Surgery | DX: E11.621 Type 2 diabetes mellitus with foot ulcer (principal); I96 Gangrene, not elsewhere classified; E11.42 Type 2 diabetes mellitus with diabetic polyneuropathy; L97.522 Non-pressure chronic ulcer of other part of left foot with fat layer exposed; L97.422 Non-pressure chronic ulcer of left heel and midfoot with fat layer exposed; E11.65 Type 2 diabetes mellitus with hyperglycemia; I70.245 Atherosclerosis of native arteries of left leg with ulceration of other part of foot; E66.01 Morbid (severe) obesity due to excess calories; Z68.42 Body mass index [BMI] 45.0-49.9, adult | CPT/HCPCS: 11042; G0463 ==

== ENCOUNTER → 2021-03-02 | Outpatient (CLI) | payer MEDICARE ==
[~2021-03-02] MED LIST changes: -OMEP40CA27 PO; +OMEP40CA6 PO
== END ==
LOC: WOUNDCARE 14:00
PROVIDERS: ATTEND Surgery
DX: E11.621 Type 2 diabetes mellitus with foot ulcer (principal); I96 Gangrene, not elsewhere classified; E11.42 Type 2 diabetes mellitus with diabetic polyneuropathy; L97.522 Non-pressure chronic ulcer of other part of left foot with fat layer exposed; L97.422 Non-pressure chronic ulcer of left heel and midfoot with fat layer exposed; E11.65 Type 2 diabetes mellitus with hyperglycemia; I70.245 Atherosclerosis of native arteries of left leg with ulceration of other part of foot; E66.01 Morbid (severe) obesity due to excess calories; Z68.42 Body mass index [BMI] 45.0-49.9, adult
CPT/HCPCS: 29445; G0463

== ENCOUNTER → 2021-03-09 | Outpatient (CLI) | payer MEDICARE ==
[~2021-03-09] MED LIST changes: +PANT40TA2 PO
== END ==
LOC: WOUNDCARE 13:49
PROVIDERS: ATTEND Surgery
DX: E11.621 Type 2 diabetes mellitus with foot ulcer (principal); I96 Gangrene, not elsewhere classified; E11.42 Type 2 diabetes mellitus with diabetic polyneuropathy; L97.522 Non-pressure chronic ulcer of other part of left foot with fat layer exposed; L97.422 Non-pressure chronic ulcer of left heel and midfoot with fat layer exposed; E11.65 Type 2 diabetes mellitus with hyperglycemia; E66.01 Morbid (severe) obesity due to excess calories; Z68.42 Body mass index [BMI] 45.0-49.9, adult
CPT/HCPCS: 11042; G0463

== ENCOUNTER 2021-03-10 11:10 | Emergency (ER) | payer MEDICARE ==
[~2021-03-10] VITALS: Ht 176 cm; Wt 139.0 kg
[~2021-03-10 11:10] MED LIST changes: -PANT40TA2 PO
[2021-03-10] MEDS ORDERED: fentaNYL INJ 100 MCG/2 ML AMP IVP ONE (11:30)
[2021-03-10] MEDS ORDERED: NS IV 1000 ML 1,000 ML IV SCH (11:30)
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
[2021-03-10 11:34] LABS: BASOPHILS # (AUTO) 0.1 10^3/uL (0.0-0.1); BASOPHILS % (AUTO) 1 % (0-10); EOSINOPHILS # (AUTO) 0.2 10^3/uL (0.0-0.3); EOSINOPHILS % (AUTO) 3 % (0-10); HEMATOCRIT 45 % (40-54); HEMOGLOBIN 15.4 g/dL (13.3-17.7); LYMPHOCYTES # (AUTO) 1.9 10^3/uL (1.0-4.0); LYMPHOCYTES % (AUTO) 28 % (12-44); MEAN CORPUSCULAR HEMOGLOBIN 29 pg (25-34); MEAN CORPUSCULAR HGB CONC 34 g/dL (32-36); MEAN CORPUSCULAR VOLUME 86 fL (80-99); MONOCYTES # (AUTO) 0.6 10^3/uL (0.0-1.0); MONOCYTES % (AUTO) 9 % (0-12); NEUTROPHILS % (AUTO) 59 % (42-75); PLATELET COUNT 181 10^3/uL (130-400); WHITE BLOOD COUNT 6.7 10^3/uL (4.3-11.0)
[2021-03-10 11:47] LABS: BILIRUBIN,URINE NEGATIVE (NEGATIVE); CLARITY,URINE CLEAR; COLOR,URINE YELLOW; GLUCOSE, URINE (UA) 3+ (NEGATIVE); KETONES,URINE NEGATIVE (NEGATIVE); LEUKOCYTE ESTERASE ,URINE NEGATIVE (NEGATIVE); NITRITE,URINE NEGATIVE (NEGATIVE); PROTEIN,URINE NEGATIVE (NEGATIVE)
[2021-03-10 11:50] LABS: ALBUMIN 3.9 GM/DL (3.2-4.5); CHLORIDE 101 MMOL/L (98-107); SODIUM 137 MMOL/L (135-145)
[2021-03-10 11:51] LABS: CALCIUM 8.9 MG/DL (8.5-10.1); INR 1.1 (0.8-1.4); PROTHROMBIN TIME PATIENT 14.2 SEC (12.2-14.7)
[2021-03-10 11:52] LABS: GLUCOSE 293 MG/DL (70-105); TOTAL PROTEIN 7.1 GM/DL (6.4-8.2)
[2021-03-10 11:53] LABS: CARBON DIOXIDE 25 MMOL/L (21-32)
[2021-03-10 11:53] LABS: AMPHETAMINE SCREEN, URINE POSITIVE (NEGATIVE); BARBITURATE SCREEN URINE NEGATIVE (NEGATIVE); BENZODIAZEPINES SCREEN URINE NEGATIVE (NEGATIVE); CANNABINOID SCREEN, URINE NEGATIVE (NEGATIVE); COCAINE SCREEN URINE NEGATIVE (NEGATIVE); METHADONE STAT NEGATIVE (NEGATIVE); METHAMPHETAMINE SCREEN URINE S POSITIVE (NEGATIVE); OPIATE SCREEN URINE NEGATIVE (NEGATIVE); OXYCODONE STAT NEGATIVE (NEGATIVE); PROPOXYPHENE STAT NEGATIVE (NEGATIVE); TRICYCLIC ANTIDEPRESSANTS SCRE NEGATIVE (NEGATIVE)
[2021-03-10 11:54] LABS: BILIRUBIN,TOTAL 0.7 MG/DL (0.1-1.0)
[2021-03-10 11:56] LABS: ALKALINE PHOSPHATASE 85 U/L (40-136); CREATININE SERUM 0.81 MG/DL (0.60-1.30); GFR ESTIMATED > 60
[2021-03-10 11:57] LABS: BUN/CREATININE RATIO 15
[2021-03-10 11:59] LABS: ALANINE AMINOTRANSFERASE 46 U/L (0-55); LIPASE 143 U/L (8-78)
[2021-03-10] MEDS ORDERED: HOLD METFORMIN - RECEIVED CONTRAST 20 ML VIAL IV SCH (12:00)
[2021-03-10] MEDS ORDERED: NS 100 ML (IVPB) BAG IV ONE (12:00)
[2021-03-10] MEDS ORDERED: IOHEXOL 350 MG/ML 100 ML (OMNIPAQUE 350) VIAL IV ONE (12:00)
[2021-03-10 12:04] LABS: BACTERIA,URINE NEGATIVE /HPF; SQUAMOUS EPITHELIAL CELL,UR 0-2 /HPF; WBC,URINE 0-2 /HPF
[2021-03-10] MEDS ORDERED: ANTACID SUSP 30 ML UDC (MYLANTA) PO ONE (12:15)
[2021-03-10] MEDS ORDERED: LIDOCAINE 2% VISCOUS 15 ML UDC PO ONE (12:15)
--- NOTE | 2021-03-10 12:39 | Diagnostic Imaging Report ---
Clinical indication: Patient with neck pain and head pain. Exam: Axial Head CT without IV contrast with sagittal and coronal reformations. Axial CT scan of the cervical spine with sagittal and coronal reformations. Auto Exposure Controls were utilized during the CT exam to meet ALARA standards for radiation dose reduction. Comparison: CT angiogram of the head and neck dated 04/12/2016. Head CT without contrast dated 04/12/2016. Findings: Head CT: There is no evidence of acute cerebral infarct, intracranial hemorrhage, or gross mass effect. The brain parenchymal volume appears appropriate for patient's age. Stable patchy areas of low-attenuation white matter changes involving both cerebral hemispheres. There is normal saeed-white matter distinction. There is no significant midline shift or herniation. There is no evidence of hydrocephalus. The basal cisterns are unremarkable. The skull, extracranial soft tissue, and orbits are unremarkable. The paranasal sinuses are unremarkable. Temporal bones show no significant abnormality. Cervical spine: Patient body habitus streak artifact limits evaluation of the C6-T2 level. There is no acute cervical spine fracture or dislocation visualized. There are cervical spine vertebral body spurs and mild facet arthropathy. There is no significant bony central canal narrowing. There is severe right C6-C7 neural foramen narrowing and mild to moderate left C6-C7 neural foramen narrowing. There is diffuse disk bulge of the C6-C7 level with moderate loss of disk space height. Visualized neck soft tissue structures are unremarkable. Visualized upper lung gillespie are clear. Impression: 1: There is no evidence of acute intracranial process. There is no intracranial hemorrhage or skull fracture. 2: There is degenerative disease of the cervical spine with no acute fracture or dislocation. Dictated by: Dictated on workstation # [id number]
--- NOTE | 2021-03-10 13:01 | Diagnostic Imaging Report ---
CT ABDOMEN/PELVIS W TECHNIQUE: Multiple contiguous axial images were obtained through the abdomen and pelvis after administration of intravenous contrast. All CT scans use one or more of the following dose optimizing techniques: automated exposure control, MA and/or KvP adjustment based on patient size and exam type or iterative reconstruction. INDICATION: Epigastric pain. COMPARISON: CT abdomen and pelvis of 01/08/2018. FINDINGS: Lower chest: The lung bases are clear. No pericardial or pleural effusion. Peritoneum: No free intraperitoneal air or fluid. Liver and biliary system: Stable diffuse hepatic hypoattenuation indicative of steatosis. No focal hepatic lesion. Cholecystectomy. No biliary duct dilatation. Spleen and Pancreas: Spleen is normal. The pancreas enhances normally without mass lesion or peripancreatic inflammatory changes. Adrenals: Normal. tract: The kidneys enhance normally without suspicious mass or obstruction. Urinary bladder is decompressed, limiting assessment. No renal or ureteral calculi. Prostate is not enlarged. GI tract: Stomach is decompressed. No bowel obstruction. No pericolonic inflammatory changes. Normal appendix. Vasculature and Lymph nodes: Normal caliber aorta. No abdominal or pelvic lymphadenopathy. Musculoskeletal: No concerning osseous lesion. Umbilical hernia contains only fat. IMPRESSION: 1. No acute obstructive or inflammatory process. 2. Stable diffuse hepatic steatosis. 3. Small fat-containing umbilical hernia. Dictated by: Dictated on workstation # [id number]
--- NOTE | 2021-03-10 13:04 | Diagnostic Imaging Report ---
INDICATION: Pancreatitis. COMPARISON: 11/23/2019. FINDINGS: Single view of the chest demonstrates stable cardiac enlargement. Lungs are otherwise clear. There is no pneumothorax, effusion, or focal infiltrate. Osseous structures are stable. IMPRESSION: No acute cardiopulmonary findings. Dictated by: Dictated on workstation # [id number]
[2021-03-10] MEDS ORDERED: PANT40TA2 PO (13:18)
[2021-03-10 13:33] VITALS: BP 150/84
== END 2021-03-10 13:43 | disposition home or self-care (01) ==
LOC: EDUNIT# 11:10 → ER 11:11
DX: R10.13 Epigastric pain (principal); F15.90 Other stimulant use, unspecified, uncomplicated; H54.7 Unspecified visual loss; I10 Essential (primary) hypertension; E11.9 Type 2 diabetes mellitus without complications; E66.01 Morbid (severe) obesity due to excess calories; G89.29 Other chronic pain; M54.9 Dorsalgia, unspecified; K21.9 Gastro-esophageal reflux disease without esophagitis; Z68.41 Body mass index [BMI] 40.0-44.9, adult; Z79.899 Other long term (current) drug therapy; Z79.891 Long term (current) use of opiate analgesic; Z79.4 Long term (current) use of insulin
CPT/HCPCS: 36415; 70450; 71045; 72125; 74177; 80053; 80306; 81000; 83690; 85025; 85610

== ENCOUNTER → 2021-03-16 | Outpatient (CLI) | payer MEDICARE ==
[~2021-03-16] MED LIST changes: +PANT40TA2 PO
== END ==
LOC: WOUNDCARE 14:03
PROVIDERS: ATTEND Surgery
DX: E11.621 Type 2 diabetes mellitus with foot ulcer (principal); E11.42 Type 2 diabetes mellitus with diabetic polyneuropathy; L97.522 Non-pressure chronic ulcer of other part of left foot with fat layer exposed; L97.422 Non-pressure chronic ulcer of left heel and midfoot with fat layer exposed; E11.65 Type 2 diabetes mellitus with hyperglycemia; E66.01 Morbid (severe) obesity due to excess calories; E11.52 Type 2 diabetes mellitus with diabetic peripheral angiopathy with gangrene
CPT/HCPCS: 11042; G0463

== ENCOUNTER → 2021-03-23 | Outpatient (CLI) | payer MEDICARE | LOC: WOUNDCARE 13:50 | PROVIDERS: ATTEND Surgery | DX: E11.621 Type 2 diabetes mellitus with foot ulcer (principal); E11.42 Type 2 diabetes mellitus with diabetic polyneuropathy; L97.522 Non-pressure chronic ulcer of other part of left foot with fat layer exposed; L97.422 Non-pressure chronic ulcer of left heel and midfoot with fat layer exposed; E11.65 Type 2 diabetes mellitus with hyperglycemia; E66.01 Morbid (severe) obesity due to excess calories; E11.52 Type 2 diabetes mellitus with diabetic peripheral angiopathy with gangrene | CPT/HCPCS: 11042; G0463 ==

== ENCOUNTER → 2021-03-30 | Outpatient (CLI) | payer MEDICARE | LOC: WOUNDCARE 14:03 | PROVIDERS: ATTEND Surgery | DX: E11.621 Type 2 diabetes mellitus with foot ulcer (principal); E11.42 Type 2 diabetes mellitus with diabetic polyneuropathy; L97.522 Non-pressure chronic ulcer of other part of left foot with fat layer exposed; L97.422 Non-pressure chronic ulcer of left heel and midfoot with fat layer exposed; E11.65 Type 2 diabetes mellitus with hyperglycemia; E66.01 Morbid (severe) obesity due to excess calories; E11.52 Type 2 diabetes mellitus with diabetic peripheral angiopathy with gangrene | CPT/HCPCS: 11042; G0463 ==

== ENCOUNTER → 2021-04-06 | Outpatient (CLI) | payer MEDICARE | LOC: WOUNDCARE 13:47 | PROVIDERS: ATTEND Surgery | DX: E11.621 Type 2 diabetes mellitus with foot ulcer (principal); I96 Gangrene, not elsewhere classified; E11.42 Type 2 diabetes mellitus with diabetic polyneuropathy; L97.522 Non-pressure chronic ulcer of other part of left foot with fat layer exposed; E11.65 Type 2 diabetes mellitus with hyperglycemia; E66.01 Morbid (severe) obesity due to excess calories; Z68.42 Body mass index [BMI] 45.0-49.9, adult | CPT/HCPCS: 11042; G0463 ==

== ENCOUNTER → 2021-04-13 | Outpatient (CLI) | payer MEDICARE | LOC: WOUNDCARE 13:39 | PROVIDERS: ATTEND Surgery | DX: E11.621 Type 2 diabetes mellitus with foot ulcer (principal); E11.42 Type 2 diabetes mellitus with diabetic polyneuropathy; L97.522 Non-pressure chronic ulcer of other part of left foot with fat layer exposed; E11.65 Type 2 diabetes mellitus with hyperglycemia; E66.01 Morbid (severe) obesity due to excess calories; E11.52 Type 2 diabetes mellitus with diabetic peripheral angiopathy with gangrene | CPT/HCPCS: 11042 ==

== ENCOUNTER → 2021-04-20 | Outpatient (CLI) | payer MEDICARE | LOC: WOUNDCARE 14:03 | PROVIDERS: ATTEND Surgery | DX: E11.621 Type 2 diabetes mellitus with foot ulcer (principal); E11.42 Type 2 diabetes mellitus with diabetic polyneuropathy; L97.521 Non-pressure chronic ulcer of other part of left foot limited to breakdown of skin; E11.65 Type 2 diabetes mellitus with hyperglycemia; E66.01 Morbid (severe) obesity due to excess calories; E11.52 Type 2 diabetes mellitus with diabetic peripheral angiopathy with gangrene | CPT/HCPCS: 97597; G0463 ==

== ENCOUNTER → 2021-04-27 | Outpatient (CLI) | payer MEDICARE | LOC: WOUNDCARE 13:53 | PROVIDERS: ATTEND Surgery | DX: E11.621 Type 2 diabetes mellitus with foot ulcer (principal); I96 Gangrene, not elsewhere classified; L97.521 Non-pressure chronic ulcer of other part of left foot limited to breakdown of skin; E11.42 Type 2 diabetes mellitus with diabetic polyneuropathy; E11.65 Type 2 diabetes mellitus with hyperglycemia; E66.01 Morbid (severe) obesity due to excess calories; Z68.42 Body mass index [BMI] 45.0-49.9, adult | CPT/HCPCS: 11042; A6197; G0463 ==

== ENCOUNTER → 2021-05-26 | Outpatient (CLI) | payer MEDICARE | LOC: WOUNDCARE 12:20 | PROVIDERS: ATTEND Surgery | DX: E11.621 Type 2 diabetes mellitus with foot ulcer (principal); I96 Gangrene, not elsewhere classified; E11.42 Type 2 diabetes mellitus with diabetic polyneuropathy; L97.522 Non-pressure chronic ulcer of other part of left foot with fat layer exposed; E11.65 Type 2 diabetes mellitus with hyperglycemia; E66.01 Morbid (severe) obesity due to excess calories; Z68.42 Body mass index [BMI] 45.0-49.9, adult | CPT/HCPCS: 11042; A6197; G0463 ==

== ENCOUNTER → 2021-06-02 | Outpatient (CLI) | payer MEDICARE | LOC: WOUNDCARE 13:19 | PROVIDERS: ATTEND Surgery | DX: E11.621 Type 2 diabetes mellitus with foot ulcer (principal); E11.42 Type 2 diabetes mellitus with diabetic polyneuropathy; E11.65 Type 2 diabetes mellitus with hyperglycemia; L97.522 Non-pressure chronic ulcer of other part of left foot with fat layer exposed; E66.01 Morbid (severe) obesity due to excess calories; E11.52 Type 2 diabetes mellitus with diabetic peripheral angiopathy with gangrene | CPT/HCPCS: 11042; G0463 ==

== ENCOUNTER → 2021-06-09 | Outpatient (CLI) | payer MEDICARE | LOC: WOUNDCARE 12:27 | PROVIDERS: ATTEND Surgery | DX: E11.621 Type 2 diabetes mellitus with foot ulcer (principal); E11.42 Type 2 diabetes mellitus with diabetic polyneuropathy; L97.522 Non-pressure chronic ulcer of other part of left foot with fat layer exposed; E11.65 Type 2 diabetes mellitus with hyperglycemia; E66.01 Morbid (severe) obesity due to excess calories; E11.52 Type 2 diabetes mellitus with diabetic peripheral angiopathy with gangrene | CPT/HCPCS: 11042; G0463 ==

== ENCOUNTER → 2021-06-22 | Outpatient (CLI) | payer MEDICARE | LOC: WOUNDCARE 14:15 | PROVIDERS: ATTEND Surgery | DX: E11.621 Type 2 diabetes mellitus with foot ulcer (principal); E11.42 Type 2 diabetes mellitus with diabetic polyneuropathy; L97.522 Non-pressure chronic ulcer of other part of left foot with fat layer exposed; E11.65 Type 2 diabetes mellitus with hyperglycemia; E66.01 Morbid (severe) obesity due to excess calories; E11.52 Type 2 diabetes mellitus with diabetic peripheral angiopathy with gangrene | CPT/HCPCS: 11042; G0463 ==

== ENCOUNTER → 2021-06-29 | Outpatient (CLI) | payer MEDICARE | LOC: WOUNDCARE 12:43 | PROVIDERS: ATTEND Family Medicine | DX: E11.621 Type 2 diabetes mellitus with foot ulcer (principal); E11.52 Type 2 diabetes mellitus with diabetic peripheral angiopathy with gangrene; E11.42 Type 2 diabetes mellitus with diabetic polyneuropathy; L97.522 Non-pressure chronic ulcer of other part of left foot with fat layer exposed; E11.65 Type 2 diabetes mellitus with hyperglycemia; E66.01 Morbid (severe) obesity due to excess calories; M20.42 Other hammer toe(s) (acquired), left foot; Z68.42 Body mass index [BMI] 45.0-49.9, adult | CPT/HCPCS: 11042; G0463 ==

== ENCOUNTER → 2021-07-13 | Outpatient (CLI) | payer MEDICARE ==
[~2021-07-13] MED LIST changes: +CLIN-144 PO; -CLIN300C12 PO
== END ==
LOC: WOUNDCARE 13:38
PROVIDERS: ATTEND Family Medicine
DX: E11.621 Type 2 diabetes mellitus with foot ulcer (principal); E11.42 Type 2 diabetes mellitus with diabetic polyneuropathy; L97.522 Non-pressure chronic ulcer of other part of left foot with fat layer exposed; E11.65 Type 2 diabetes mellitus with hyperglycemia; E66.01 Morbid (severe) obesity due to excess calories; M20.42 Other hammer toe(s) (acquired), left foot; I10 Essential (primary) hypertension; E11.52 Type 2 diabetes mellitus with diabetic peripheral angiopathy with gangrene
CPT/HCPCS: 11042; A6207; G0463; L4360

== ENCOUNTER → 2021-07-20 | Outpatient (CLI) | payer MEDICARE | LOC: WOUNDCARE 13:37 | PROVIDERS: ATTEND Family Medicine | DX: E11.621 Type 2 diabetes mellitus with foot ulcer (principal); E11.42 Type 2 diabetes mellitus with diabetic polyneuropathy; L97.522 Non-pressure chronic ulcer of other part of left foot with fat layer exposed; E11.65 Type 2 diabetes mellitus with hyperglycemia; E66.01 Morbid (severe) obesity due to excess calories; M20.42 Other hammer toe(s) (acquired), left foot; I10 Essential (primary) hypertension; E11.52 Type 2 diabetes mellitus with diabetic peripheral angiopathy with gangrene | CPT/HCPCS: 11042; G0463 ==

== ENCOUNTER → 2021-08-10 | Outpatient (CLI) | payer MEDICARE ==
[~2021-08-10] MED LIST changes: +CYCL10TA25 PO
== END ==
LOC: WOUNDCARE 12:57
PROVIDERS: ATTEND Family Medicine
DX: E11.621 Type 2 diabetes mellitus with foot ulcer (principal); E11.42 Type 2 diabetes mellitus with diabetic polyneuropathy; L97.522 Non-pressure chronic ulcer of other part of left foot with fat layer exposed; E11.65 Type 2 diabetes mellitus with hyperglycemia; E66.01 Morbid (severe) obesity due to excess calories; E11.52 Type 2 diabetes mellitus with diabetic peripheral angiopathy with gangrene; M20.42 Other hammer toe(s) (acquired), left foot
CPT/HCPCS: 11042; G0463

== ENCOUNTER 2021-09-27 14:17 | Inpatient (IN) | payer OTHER, MEDICARE ==
[~2021-09-27] VITALS: Ht 172.7 cm; Wt 133.6 kg
[2021-09-27] MEDS ORDERED: morphine INJ 10 MG/ML 1ML (SYR OR VIAL) IVP STA (14:31)
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
[2021-09-27 14:44] LABS: ALBUMIN 3.2 GM/DL (3.2-4.5); BASOPHILS % (AUTO) 0 % (0-10); EOSINOPHILS % (AUTO) 0 % (0-10); HEMATOCRIT 47 % (40-54); HEMOGLOBIN 15.5 g/dL (13.3-17.7); LYMPHOCYTES # (AUTO) 0.9 10^3/uL (1.0-4.0); LYMPHOCYTES % (AUTO) 20 % (12-44); MEAN CORPUSCULAR HEMOGLOBIN 29 pg (25-34); MEAN CORPUSCULAR HGB CONC 33 g/dL (32-36); MEAN CORPUSCULAR VOLUME 87 fL (80-99); MEAN PLATELET VOLUME 9.8 fL (9.0-12.2); MONOCYTES # (AUTO) 0.4 10^3/uL (0.0-1.0); MONOCYTES % (AUTO) 9 % (0-12); NEUTROPHILS % (AUTO) 69 % (42-75); PLATELET COUNT 150 10^3/uL (130-400); POTASSIUM 4.2 MMOL/L (3.6-5.0); WHITE BLOOD COUNT 4.4 10^3/uL (4.3-11.0)
[2021-09-27 14:45] LABS: CALCIUM 8.3 MG/DL (8.5-10.1)
[2021-09-27] MEDS ORDERED: KETOROLAC 30 MG/ML VIAL IVP ONE (14:45)
[2021-09-27] MEDS ORDERED: ACETAMINOPHEN 325 MG TABLET PO ONE (14:45)
[2021-09-27 14:48] LABS: BILIRUBIN,TOTAL 0.8 MG/DL (0.1-1.0)
[2021-09-27 14:50] LABS: CREATININE SERUM 0.79 MG/DL (0.60-1.30); PROTHROMBIN TIME PATIENT 14.4 SEC (12.2-14.7)
[2021-09-27 14:51] LABS: FIBRIN DEGRADATION PRODUCTS 0.91 UG/ML (0.00-0.49); INR 1.1 (0.8-1.4)
[2021-09-27] MEDS ORDERED: HOLD METFORMIN - RECEIVED CONTRAST 20 ML VIAL IV SCH (15:30)
[2021-09-27] MEDS ORDERED: IOHEXOL 350 MG/ML 100 ML (OMNIPAQUE 350) VIAL IV ONE (15:30)
[2021-09-27] MEDS ORDERED: NS 100 ML (IVPB) BAG IV ONE (15:30)
[2021-09-27] MEDS ORDERED: CATHETER FLUSH 10 ML SYR IV PRN (15:30)
--- NOTE | 2021-09-27 15:45 | Diagnostic Imaging Report ---
INDICATION: Shortness of breath and back pain. TIME OF EXAM: 3:38 p.m. COMPARISON: Correlation is made with prior chest 03/10/2021. FINDINGS: Heart size is normal. There are infiltrates throughout the right upper and lower lung gillespie suggestive of pneumonia. There are some patchy peripheral-based infiltrates throughout the left lung as well consistent with pneumonia. There is no effusion or pneumothorax. IMPRESSION: Bilateral infiltrates, greater on the right and consistent with pneumonia. Dictated by: Dictated on workstation # [id number]
[2021-09-27 15:51] LABS: AMPHETAMINE SCREEN, URINE POSITIVE (NEGATIVE); BARBITURATE SCREEN URINE NEGATIVE (NEGATIVE); BENZODIAZEPINES SCREEN URINE NEGATIVE (NEGATIVE); CANNABINOID SCREEN, URINE NEGATIVE (NEGATIVE); COCAINE SCREEN URINE NEGATIVE (NEGATIVE); METHADONE STAT NEGATIVE (NEGATIVE); METHAMPHETAMINE SCREEN URINE S POSITIVE (NEGATIVE); OPIATE SCREEN URINE POSITIVE (NEGATIVE); OXYCODONE STAT POSITIVE (NEGATIVE); PROPOXYPHENE STAT NEGATIVE (NEGATIVE); TRICYCLIC ANTIDEPRESSANTS SCRE NEGATIVE (NEGATIVE)
--- NOTE | 2021-09-27 15:52 | Diagnostic Imaging Report ---
PROCEDURE: CT angiography of the chest with contrast. TECHNIQUE: Multiple contiguous axial images were obtained through the chest after uneventful bolus administration of intravenous contrast. 3D reconstructed CTA MIP acquisitions were also performed. Auto Exposure Controls were utilized during the CT exam to meet ALARA standards for radiation dose reduction. INDICATION: Shortness of breath and upper back pain. Patient is COVID-19 positive. COMPARISON: Correlation is made with prior CT angiogram of the chest from 01/08/2018. FINDINGS: Evaluation of the pulmonary arterial system is without evidence of thromboembolism. No filling defects are seen within central, lobar, or segmental branches. The thoracic aorta is normal in caliber. There is no dissection. There is no pericardial fluid. There are trace bilateral pleural effusions. There are extensive airspace and ground-glass infiltrates throughout bilateral upper and bilateral lower lobes, slightly greater on the right. Upper abdomen does show hepatic steatosis. There is a low-density nodule in the right adrenal gland, stable. There are also fatty nodules involving the left adrenal gland, stable. These may represent myelolipomas. IMPRESSION: 1. No evidence of pulmonary embolism or acute aortic disease. 2. Trace bilateral pleural effusions. 3. Extensive bilateral ground-glass and airspace pulmonary infiltrates consistent with pneumonia. Dictated by: Dictated on workstation # [id number]
[2021-09-27] MEDS ORDERED: ASPIRIN 81 MG CHEW (CHILDREN'S ASA) PO ONE (16:15)
[2021-09-27] MEDS ORDERED: ENOXAPARIN 30 MG/0.3 ML (LOVENOX) SYR SC ONE (16:30)
[2021-09-27] MEDS ORDERED: cefTRIAXone 1 GM PRE-MIX 50 ML IV ONE (16:30)
[2021-09-27] MEDS ORDERED: ENOXAPARIN 100 MG/1 ML (LOVENOX) SYR SC ONE (16:30)
[2021-09-27 16:58] LABS: ABG BASE EXCESS 3.1 MMOL/L (-2.5-2.5); ABG OXYGEN SATURATION 85 % (94-100); ABG PCO2 52 MMHG (35-45); ABG PH 7.36 (7.37-7.43); ABG PO2 54 MMHG (79-93); ABG TCO2 29.6 MMOL/L (21.0-31.0)
[2021-09-27 17:00] LABS: ALLENS TEST POS; INSPIRED O2 2L
[2021-09-27 17:01] LABS: PATIENT TEMP 37.5; VENTILATOR NO
[2021-09-27] MEDS ORDERED: HYDROcodone/APAP 5 MG/325 MG (LORTAB) TAB PO ONE (18:15)
[2021-09-27] MEDS ORDERED: ONDANSETRON 4 MG/2 ML (SDV) Z0FRAN IV PRN (19:00)
[2021-09-27] MEDS ORDERED: LACTULOSE SYRUP 10GM/15ML (ENULOSE) 30ML UDC PO PRN (19:00)
[2021-09-27] MEDS ORDERED: BISACODYL 10 MG SUPP (DULCOLAX) PR PRN (19:00)
[2021-09-27] MEDS ORDERED: guaiFENesin/CODEINE (ROBITUSSIN AC) 10ML UDC PO SCH (19:00)
[2021-09-27] MEDS ORDERED: ANTACID SUSP 30 ML UDC (MYLANTA) PO PRN (19:00)
[2021-09-27] MEDS ORDERED: LORazepam 0.5 MG (ATIVAN) TABLET PO PRN (19:00)
[2021-09-27] MEDS ORDERED: LORazepam INJ 2 MG/ML (ATIVAN) VIAL IVP PRN (19:00)
[2021-09-27] MEDS ORDERED: diphenhydrAMINE 25 MG TAB (BENADRYL) PO PRN (19:00)
[2021-09-27] MEDS ORDERED: MELATONIN 3 MG TABLET PO PRN (19:00)
[2021-09-27] MEDS ORDERED: ONDANSETRON 4 MG (ZOFRAN) ORAL DISSOLVE TAB PO PRN (19:00)
[2021-09-27] MEDS ORDERED: ENOXAPARIN 100 MG/1 ML (LOVENOX) SYR SC SCH (19:00)
[2021-09-27] MEDS ORDERED: MILK OF MAGNESIA 400 MG/5 ML 30 ML UDC PO PRN (19:00)
[2021-09-27] MEDS ORDERED: morphine INJ 4 MG/ML 1 ML (VIAL/SYRINGE) IV PRN (19:00)
[2021-09-27] MEDS ORDERED: polyethylene glycoL POWDER 17 GM (MIRALAX) PACK PO PRN (19:00)
[2021-09-27] MEDS ORDERED: cefTRIAXone 1 GM PRE-MIX 50 ML IV NR (19:00)
[2021-09-27] MEDS ORDERED: CALCIUM CARBONATE 500 MG (TUMS) TAB.CHEW PO PRN (19:00)
[2021-09-27] MEDS ORDERED: diphenhydrAMINE 50 MG/ML INJ (BENADRYL) IVP PRN (19:00)
[2021-09-27 19:35] VITALS: BP 162/83
[2021-09-27 19:43] VITALS: BP 138/63
[2021-09-27] MEDS ORDERED: RT-ALBUTEROL HFA 8.5 GM INHALER IH PRN (19:45)
[2021-09-27] MEDS: AZITHROMYCIN INJECTION 500 MG in NS (IVPB) 250 ML IV SCH (20:32)
[2021-09-27] MEDS: DOCUSATE SODIUM 100 MG (COLACE) CAP PO SCH (20:32)
[2021-09-27] MEDS: SENNOSIDES 8.6 MG (SENOKOT) TAB PO SCH (20:33)
[2021-09-27] MEDS: guaiFENesin (MUCINEX) 600 MG TAB PO SCH (20:33)
[2021-09-27] MEDS ORDERED: inSUlin (REGULAR) HUMAN 1 UNIT/0.01 ML (CHARGE PER UNIT) ONE (22:12)
[2021-09-27] MEDS: inSUlin (REGULAR) HUMAN 1 UNIT/0.01 ML (CHARGE PER UNIT) SC PRN (22:19)
[2021-09-27] MEDS: guaiFENesin/CODEINE (ROBITUSSIN AC) 10ML UDC PO SCH (23:57)
[2021-09-28] VITALS (7 sets, daily range): BP systolic 140–190; BP diastolic 70–88
[2021-09-28] MEDS ORDERED: KETOROLAC 15 MG/ML VIAL IV PRN
[2021-09-28] MEDS: ENOXAPARIN 300 MG/3 ML (LOVENOX) MULTI-DOSE VIAL SQ SCH ×2 (03:56→17:50)
[2021-09-28] MEDS: guaiFENesin/CODEINE (ROBITUSSIN AC) 10ML UDC PO SCH ×6 (03:56→23:56)
[2021-09-28 06:24] LABS: BASOPHILS % (AUTO) 0 % (0-10); EOSINOPHILS % (AUTO) 0 % (0-10); MEAN CORPUSCULAR VOLUME 85 fL (80-99); NEUTROPHILS % (AUTO) 65 % (42-75)
[2021-09-28 06:26] LABS: HEMATOCRIT 44 % (40-54); HEMOGLOBIN 14.9 g/dL (13.3-17.7); LYMPHOCYTES # (AUTO) 0.5 10^3/uL (1.0-4.0); LYMPHOCYTES % (AUTO) 19 % (12-44); MEAN CORPUSCULAR HEMOGLOBIN 29 pg (25-34); MEAN CORPUSCULAR HGB CONC 34 g/dL (32-36); MEAN PLATELET VOLUME 9.8 fL (9.0-12.2); MONOCYTES # (AUTO) 0.3 10^3/uL (0.0-1.0); MONOCYTES % (AUTO) 13 % (0-12); NEUTROPHILS # (AUTO) 1.6 10^3/uL (1.8-7.8); PLATELET COUNT 139 10^3/uL (130-400); WHITE BLOOD COUNT 2.5 10^3/uL (4.3-11.0)
[2021-09-28 06:28] LABS: ALBUMIN 2.9 GM/DL (3.2-4.5)
[2021-09-28 06:29] LABS: POTASSIUM 4.6 MMOL/L (3.6-5.0)
[2021-09-28 06:30] LABS: CALCIUM 8.2 MG/DL (8.5-10.1)
[2021-09-28 06:31] LABS: TOTAL PROTEIN 6.5 GM/DL (6.4-8.2)
[2021-09-28 06:33] LABS: BILIRUBIN,TOTAL 0.5 MG/DL (0.1-1.0)
[2021-09-28 06:35] LABS: CREATININE SERUM 0.74 MG/DL (0.60-1.30)
[2021-09-28] MEDS: inSUlin (REGULAR) HUMAN 1 UNIT/0.01 ML (CHARGE PER UNIT) SC PRN (06:43)
[2021-09-28] MEDS: RT-ALBUTEROL HFA 8.5 GM INHALER IH SCH ×4 (06:57→19:12)
--- NOTE | 2021-09-28 06:57 | History & Physical-Hospitalist ---
History of Present Illness HPI/Chief Complaint CC: Acute respiratory failure due to Covid-19 pneumonia HPI: 51 yr old WM, with known history of meth use who presented to the ER with SOB and found to be hypoxic and Covid-19 was positive. At this current time pt is sleeping off his meth use and we will discontinue telemetry and will continue the protocol. His sugars are high so we will initiate insulin. Source: patient, RN/MD Exam Limitations: clinical condition (sleeping) Date Seen 09/28/21 Time Seen by a Provider: 11:00 Attending Physician Edilma Gonzales DO [facility] Referring Physician Date of Admission Sep 27, 2021 at 16:21 Home Medications & Allergies Home Medications Reviewed patient Home Medication Reconciliation performed by pharmacy medication reconciliations atm technician and/or nursing. Patients Allergies have been reviewed. Allergies Allergies Coded Allergies No Known Drug Allergies (Unverified10/12/17) Past Pafbbdh-Coekuc-Bqlcsw Hx Patient Social History Marrital Status: single Employed/Student: unemployed Tobacco Use?: No Smoking Status: Former Smoker Smokeless Tobacco Frequency: Former User Use of E-Cig and/or Vaping Karel: Never a User Substance use?: No Alcohol Use?: No Pt feels they are or have been: No Immunizations Up To Date Date of Influenza Vaccine: Nov 21, 2019 Tetanus Booster (TDap): Unknown Hepatitis A: No Hepatitis B: No PED Vaccines UTD: No Date of Pneumonia Vaccine: Mar 05, 2011 Seasonal Allergies Seasonal Allergies: Yes Current Status Advance Directives: No Communicates: Verbally Primary Language: Turkish Preferred Spoken Language: Turkish Is interpretation needed?: No Implanted or Applied Medical D: None Past Medical History Surgeries: Abdominal, Gallbladder, Orthopedic, Tonsillectomy Sleep Apnea Currently Using CPAP: No Currently Using BIPAP: No Chronic Edema/Swelling, Hypertension Sexually Transmitted Disease: No HIV/AIDS: No Gastroesophageal Reflux, Chronic Constipation, Pancreatitis, Chronic Diarrhea Arthritis, Back Injury, Chronic Back Pain Diabetes, Insulin dep Loss of Vision: Bilateral Hearing Impairment: Denies Depression Blood Disorders: No Adverse Reaction/Blood Tranf: No (N/A) Family Medical History Alzheimer's disease 19 MOTHER Arthritis 19 FATHER Cardiovascular disease 19 FATHER Dementia 19 MOTHER Hypertension 19 FATHER Myocardial infarction G8 BROTHER Parkinson's disease 19 MOTHER Prostate cancer 19 FATHER No Family History of: AIDS Abdominal aortic aneurysm Mitchell's disease Alcoholism Aphasia Asthma Cancer of mouth Cataracts Colon cancer Completed stroke Congenital disease Congenital heart disease Coronary thrombosis Cystic fibrosis Deafness or hearing loss Diabetes mellitus Drug abuse Dysphasia Fibrocystic disease of breast Gastroenteritis Glaucoma Headache disorder Hypercholesterolemia Infertility Kidney disease Neoplasm Not obtainable due to adoption Osteoporosis Psychosocial problem Respiratory disorder Seizure disorder Severe allergy Thyroid disease Tuberculosis Visual disorder No Pertinent Family Hx Review of Systems Constitutional: see HPI, malaise, weakness EENTM: no symptoms reported Respiratory: cough, dyspnea on exertion Cardiovascular: no symptoms reported Gastrointestinal: no symptoms reported Genitourinary: no symptoms reported Musculoskeletal: no symptoms reported Skin: no symptoms reported Psychiatric/Neurological: No Symptoms Reported All Other Systems Reviewed Negative Unless Noted: Yes Physical Exam Physical Exam Vital Signs Vital Signs - First Documented 09/27/21 09/27/21 09/27/21 09/27/21 14:23 18:32 19:35 19:43 Temp 37.5 Pulse 108 Resp 18 B/P (MAP) 162/83 (109) Pulse Ox 96 O2 Delivery Room Air O2 Flow Rate 2.00 FiO2 21 Capillary Refill : Less Than 3 Seconds Height, Weight, BMI Height: 5'9.00" Weight: 389lbs. 0.0oz. 176.470281rv; 43.35 BMI Method:Stated General Appearance: No Apparent Distress, Chronically ill, Obese Eyes: Right Eye Normal Inspection, Right Eye PERRL HEENT: PERRL/EOMI, Normal ENT Inspection, Pharynx Normal, Moist Mucous Membranes Neck: Full Range of Motion, Normal Inspection, Non Tender Respiratory: Chest Non Tender, Lungs Clear, No Accessory Muscle Use, No Respiratory Distress, Decreased Breath Sounds Cardiovascular: Regular Rate, Rhythm, No Edema, No Gallop, No JVD, No Murmur, Normal Peripheral Pulses Gastrointestinal: Normal Bowel Sounds, No Organomegaly, No Pulsatile Mass, Non Tender, Soft Back: Normal Inspection, No CVA Tenderness, No Vertebral Tenderness Extremity: Normal Capillary Refill, Normal Inspection, Normal Range of Motion, Non Tender, No Calf Tenderness, No Pedal Edema Neurologic/Psychiatric: Alert, Oriented x3, No Motor/Sensory Deficits, Normal Mood/Affect Skin: Normal Color, Warm/Dry Lymphatic: No Adenopathy Results Results/Procedures Labs Laboratory Tests 09/27/21 14:20 09/28/21 06:11 Patient resulted labs reviewed. Assessment/Plan Admission Diagnosis Assessment: Acute hypoxic respiratory failure COVID-19 pneumonia Diabetes Hypertension Chronic back pain Obesity BMI 45 Meth use Plan: COVID protocol Oxygen Insulin Admission Status: Inpatient Order (span 2 midnights) Reason for Inpatient Admission: covid Diagnosis/Problems Diagnosis/Problems (1) COVID-19 Status: Acute (2) Methamphetamine abuse Status: Acute (3) Chest pain Status: Acute (4) Multiple complaints Status: Acute (5) Insulin dependent diabetes mellitus with complications Status: Chronic EDILMA GONZALES DO Sep 28, 2021 06:57
--- NOTE | 2021-09-28 08:48 | Consultation-Cardiology ---
HPI-Cardiology Cardiology Consultation: Date of Consultation 09/28/21 Time Seen by a Provider: 08:20 Date of Admission 09-27-21 Attending Physician Edilma Gonzales DO Admitting Physician [place] Consulting Physician Daniel León MD HPI: Chief Complaint: Chest pain Mr. Gates is a 51 yr old male admitted to [facility] from the ED with COVID (+) pneumonia and chest pain. He reports he developed chest pain approx 5-6 days ago. He report the chest pain is constant lower left side radiated under his arm and into his back. The pain is worse with inspiration and movement. He reports the discomfort improves with position changes, but never goes away completely. He reports increasing SOB and produc cough which started 5-6 days ago. He reports he took a home COVID test which was positive. He reports fever and nausea. No c/o diarrhea. He reports chills. He denies any LE swelling. No c/o palpitations, syncope or near syncope. He reports he is a diabetic, but does not take insulin. He reports he has used methamphetamines in the past, but denies any usage in the last 4 months; however he did test positive this admission. He reports his SOB is better than at time of admit. Review of Systems-Cardiology Review of Systems Constitutional: chills, fever, malaise Eyes: No vision change Ears/Nose/Throat: No epistaxis, No recent hearing loss Respiratory: As described under HPI Cardiovascular: As described under HPI Gastrointestinal: As described under HPI Genitourinary: No dysuria, No hematuria Musculoskeletal: no symptoms reported Skin: other (reports wound to the bottom of his left foot which is not open); No rash on exposed areas Psychiatric/Neurological: No anxiety, No depression, No seizure, No focal weakness, No syncope Hematologic: No bleeding abnormalities NXC-[id number]-Huprfz Hx Patient Social History Smoking Status: Former Smoker Former smoker/When Quit: Sep 10, 1993 Have you traveled recently?: No Alcohol Use?: No Pt feels they are or have been: No Immunizations Up To Date Tetanus Booster (TDap): Unknown Date of Pneumonia Vaccine: Mar 05, 2011 Date of Influenza Vaccine: Nov 21, 2019 Past Medical History PMH As described under Assessment. Family Medical History Family Medical History: He reports his mother had an irregular heartbeat. He reports his father had CAD with CABG in in 60's. He reports a brother who passed from an OR at age 51. Family History: 19 FATHER Arthritis Cardiovascular disease Hypertension Prostate cancer 19 MOTHER Alzheimer's disease Dementia Parkinson's disease G8 BROTHER Myocardial infarction Allergies and Home Medications Allergies Coded Allergies: No Known Drug Allergies (Unverified , 10/12/17) Patient Home Medication List Home Medication List Reviewed: Yes Albuterol Sulfate (Proair Hfa) 1 Puff Puff, 2 PUFF PO Q6H PRN for SHORTNESS OF BREATH, (Reported) Entered as Reported by: YOGESH TORRES on 11/19/19827 Amlodipine Besylate (Amlodipine Besylate) 10 Mg Tablet, 10 MG PO DAILY, (Reported) Entered as Reported by: YOGESH TORRES on 11/19/19827 Amoxicillin (Amoxicillin) 500 Mg Capsule, 500 MG PO BID Prescribed by: RIAZ ALVARENGA on 11/27/19 123 Cetirizine HCl (Zyrtec) 10 Mg Tablet, 10 MG PO DAILY, (Reported) Entered as Reported by: YOGESH TORRES on 11/19/19827 Clonidine HCl (Clonidine HCl) 0.1 Mg Tablet, 0.1 MG PO TID, (Reported) Entered as Reported by: YOGESH TORRES on 11/24/19925 Cyclobenzaprine HCl (Cyclobenzaprine HCl) 10 Mg Tablet, 10 MG PO TID PRN for MUSCLE SPASMS, (Reported) Entered as Reported by: YOGESH TORRES on 11/19/19827 Dulaglutide (Trulicity) 1.5 Mg/0.5 Ml Pen.injctr, 1.5 MG SC SUNDAY, (Reported) Entered as Reported by: YOGESH TORRES on 11/19/19827 Furosemide (Furosemide) 40 Mg Tablet, 40 MG PO DAILY, (Reported) Entered as Reported by: YOGESH TORRES on 11/19/19827 Gabapentin (Gabapentin) 300 Mg Capsule, 300 MG PO TID, (Reported) Entered as Reported by: YOGESH TORRES on 11/24/19925 Insulin Detemir (Levemir Flextouch) 100 Unit/1 Ml Insuln.pen, 30 UNIT SQ HS, (Reported) Entered as Reported by: YOGESH TORRES on 3/16/20 0926 Metformin HCl (Metformin HCl) 1,000 Mg Tablet, 1,000 MG PO BID, (Reported) Entered as Reported by: YOGESH TORRES on 11/19/19 0828 Oxycodone HCl/Acetaminophen (Percocet 10-325 mg Tablet) 1 Each Tablet, 1 EA PO Q4H PRN for PAIN-MODERATE (5-7), (Reported) Prescribed by: OSCAR MIKE on 11/27/19 193 Entered as Reported by: TUNG ALFARO on 11/27/19 1313 Pantoprazole Sodium (Protonix) 40 Mg Tablet.dr, 40 MG PO DAILY Prescribed by: ABIGAIL LACY on 03/10/21 1318 Physical Exam-Cardiology Physical Exam Vital Signs/I&O 09/28/21 09/28/21 09/28/21 09/28/21 00:23 01:00 03:56 06:23 Temp 36.0 35.9 Pulse 88 90 82 Resp 20 20 B/P (MAP) 140/70 (93) 146/82 (103) Pulse Ox 95 93 91 O2 Delivery Room Air Room Air Nasal Cannula O2 Flow Rate 2.00 3.00 3.00 09/28/21 09/28/21 09/28/21 07:00 08:03 10:31 Temp 36.3 Pulse 83 84 Resp 22 B/P (MAP) 152/77 (102) Pulse Ox 93 95 O2 Delivery Nasal Cannula Nasal Cannula O2 Flow Rate 3.00 3.00 09/28/21 00:00 Intake Total 1450 ml Balance 1450 ml Capillary Refill : Less Than 3 Seconds Constitutional: AAO x 3, well-developed, well-nourished HEENT: PERRL, hearing is well preserved, oral hygience is good Neck: No carotid bruit; carotid pulses are 2 + bilaterally Respiratory: No accessory muscle use, No respiratory distress; chest expansion is symmetric, chest is bilaterally symmetric, other (coarse breath sounds throughout) Cardiovascular: regular rate-rhythm; No JVD; S1 and S2 Gastrointestinal: No tender; soft, round, audible bowel sounds Extremities: no lower extremity edema bilateral Neurologic/Psychiatric: grossly intact (moves all extremities) Skin: other (approx quarter sized area of dark pigmentation, tender to palpation on bottom of left foot; second toe amputation on left foot) Data Review Labs Laboratory Tests 09/27/21 14:20: White Blood Count 4.4, Red Blood Count 5.39, Hemoglobin 15.5, Hematocrit 47, Mean Corpuscular Volume 87, Mean Corpuscular Hemoglobin 29, Mean Corpuscular Hemoglobin Concent 33, Red Cell Distribution Width 13.6, Platelet Count 150, Mean Platelet Volume 9.8, Immature Granulocyte % (Auto) 2, Neutrophils (%) (Auto) 69, Lymphocytes (%) (Auto) 20, Monocytes (%) (Auto) 9, Eosinophils (%) (Auto) 0, Basophils (%) (Auto) 0, Neutrophils # (Auto) 3.0, Lymphocytes # (Auto) 0.9L, Monocytes # (Auto) 0.4, Eosinophils # (Auto) 0.0, Basophils # (Auto) 0.0, Immature Granulocyte # (Auto) 0.1, Prothrombin Time 14.4, INR Comment 1.1, Ac tivated Partial Thromboplast Time 34, Fibrinogen 846H, D-Dimer 0.91H, Sodium Level 135, Potassium Level 4.2, Chloride Level 97L, Carbon Dioxide Level 24, Anion Gap 14, Blood Urea Nitrogen 10, Creatinine 0.79, Estimat Glomerular Filtration Rate 108, BUN/Creatinine Ratio 13, Glucose Level 299H, Calcium Level 8.3L, Corrected Calcium 8.9, Total Bilirubin 0.8, Aspartate Amino Transf (AST/SGOT) 41H, Alanine Aminotransferase (ALT/SGPT) 40, Alkaline Phosphatase 74, Troponin I 0.050H, C-Reactive Protein High Sensitivity 11.03H, Total Protein 7.0, Albumin 3.2, Procalcitonin 0.61H 09/27/21 14:33: Influenza Type A (RT-PCR) Not Detected, Influenza Type B (RT-PCR) Not Detected, SARS-CoV-2 RNA (RT-PCR) DetectedH 09/27/21 15:34: Urine Opiates Screen POSITIVEH, Urine Oxycodone Screen POSITIVEH, Urine Methadone Screen NEGATIVE, Urine Propoxyphene Screen NEGATIVE, Urine Barbiturates Screen NEGATIVE, Ur Tricyclic Antidepressants Screen NEGATIVE, Urine Phencyclidine Screen NEGATIVE, Urine Amphetamines Screen POSITIVEH, Urine Methamphetamines Screen POSITIVEH, Urine Benzodiazepines Screen NEGATIVE, Urine Cocaine Screen NEGATIVE, Urine Cannabinoids Screen NEGATIVE 09/27/21 16:42: Blood Gas Puncture Site RRAD, Blood Gas Patient Temperature 37.5, Arterial Blood pH 7.36L, Arterial Blood Partial Pressure CO2 52H, Arterial Blood Partial Pressure O2 54L, Arterial Blood HCO3 28H, Arterial Blood Total CO2 29.6, Arterial Blood Oxygen Saturation 85L, Arterial Blood Base Excess 3.1H, Jonnathan Test POS, Blood Gas Ventilator Setting NO, Blood Gas Inspired Oxygen 2L 09/27/21 21:52: Glucometer 414*H 09/28/21 06:11: White Blood Count 2.5L, Red Blood Count 5.19, Hemoglobin 14.9, Hematocrit 44, Mean Corpuscular Volume 85, Mean Corpuscular Hemoglobin 29, Mean Corpuscular Hemoglobin Concent 34, Red Cell Distribution Width 13.3, Platelet Count 139, Mean Platelet Volume 9.8, Immature Granulocyte % (Auto) 3, Neutrophils (%) (Auto) 65, Lymphocytes (%) (Auto) 19, Monocytes (%) (Auto) 13H, Eosinophils (%) (Auto) 0, Basophils (%) (Auto) 0, Neutrophils # (Auto) 1.6L, Lymphocytes # (Au to) 0.5L, Monocytes # (Auto) 0.3, Eosinophils # (Auto) 0.0, Basophils # (Auto) 0.0, Immature Granulocyte # (Auto) 0.1, Percent Immature Platelet Fraction 3.7, Sodium Level 134L, Potassium Level 4.6, Chloride Level 100, Carbon Dioxide Level 24, Anion Gap 10, Blood Urea Nitrogen 17, Creatinine 0.74, Estimat Glomerular Filtration Rate 110, BUN/Creatinine Ratio 23, Glucose Level 335H, Calcium Level 8.2L, Corrected Calcium 9.1, Total Bilirubin 0.5, Aspartate Amino Transf (AST/SGOT) 36H, Alanine Aminotransferase (ALT/SGPT) 35, Alkaline Phosphatase 68, Total Protein 6.5, Albumin 2.9L Radiology NAME: SUSSY GATES [facility] REC#: [id number] PT STATUS: REG ER : 1970 PHYSICIAN: ABIGAIL LACY APRN ADMIT DATE: 09/27/21/ER Signed Date of Exam:09/27/21 CHEST 1 VIEW, AP/PA ONLY INDICATION: Shortness of breath and back pain. TIME OF EXAM: 3:38 p.m. COMPARISON: Correlation is made with prior chest 03/10/2021. FINDINGS: Heart size is normal. There are infiltrates throughout the right upper and lower lung gillespie suggestive of pneumonia. There are some patchy peripheral-based infiltrates throughout the left lung as well consistent with pneumonia. There is no effusion or pneumothorax. IMPRESSION: Bilateral infiltrates, greater on the right and consistent with pneumonia. Dictated by: Dictated on workstation # [id number] Dict: 09/27/21 1536 Trans: 09/27/218 CLAUDETTE [id number] Interpreted by: GENIA NOVAK MD Electronically signed by: GENIA NOVAK MD 09/27/211657 NAME: SUSSY GATES [facility] REC#: [id number] PT STATUS: REG ER : 1970 PHYSICIAN: ABIGAIL LACY APRN ADMIT DATE: 09/27/21/ER Signed Date of Exam:09/27/21 CT ANGIO CHEST W PROCEDURE: CT angiography of the chest with contrast. TECHNIQUE: Multiple contiguous axial images were obtained through the chest after uneventful bolus administration of intravenous contrast. 3D reconstructed CTA MIP acquisitions were also performed. Auto Exposure Controls were utilized during the CT exam to meet ALARA standards for radiation dose reduction. INDICATION: Shortness of breath and upper back pain. Patient is COVID-19 positive. COMPARISON: Correlation is made with prior CT angiogram of the chest from 01/08/2018. FINDINGS: Evaluation of the pulmonary arterial system is without evidence of thromboembolism. No filling defects are seen within central, lobar, or segmental branches. The thoracic aorta is normal in caliber. There is no dissection. There is no pericardial fluid. There are trace bilateral pleural effusions. There are extensive airspace and ground-glass infiltrates throughout bilateral upper and bilateral lower lobes, slightly greater on the right. Upper abdomen does show hepatic steatosis. There is a low-density nodule in the right adrenal gland, stable. There are also fatty nodules involving the left adrenal gland, stable. These may represent myelolipomas. IMPRESSION: 1. No evidence of pulmonary embolism or acute aortic disease. 2. Trace bilateral pleural effusions. 3. Extensive bilateral ground-glass and airspace pulmonary infiltrates consistent with pneumonia. Dictated by: Dictated on workstation # [id number] Dict: 09/27/21 1545 Trans: 09/27/218 [id number] Interpreted by: GENIA NOVAK MD Electronically signed by: GENIA NOVAK MD 09/27/21 1658 ECG Impression ECG Initial ECG Rhythm: Normal Sinus A/P-Cardiology Assessment/Admission Diagnosis Chest pain of undetermined etiology - by description has features of musculoskeletal discomfort - Cardiac cath of 02-24-[address] Davis showed normal coronary arteries - Echocardiogram of 01-21-[address] 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 DM 2 - non-compliant with tx HTN - non-compliant with treatment H/O methamphetamine abuse - tested positive this admission - cessation advised Obese GERD Family h/o CAD - Father and Brother Discussion and Recomendations Chest pain of undetermined etiology Mildly elevated troponin - Type 2 OR vs NSTEMI Echocardiogram to eval structure and function Advise MPI to eval perfusion Management of COVID pneumonia is per medical services BP not well controlled - start BB Advise immediate cessation of methamphetamines Monitor lab closely Replace electrolytes as indicated We would like to thank medical services for this consult Physician Assessment Physician Assessment Pt evaluated collaboratively by the Cardiology team. To limit exposure to COVID 19, only one member of the team examined the patient today (Ar Perez APRN). Our Assessment and Plan are listed above NINI PEREZ Sep 28, 2021 08:48 DANIEL LEÓN MD FACP [facility] Sep 28, 2021 10:57
[2021-09-28] MEDS ORDERED: amLODIPine 5 MG (NORVASC) TAB PO SCH (09:00)
[2021-09-28] MEDS ORDERED: ASPIRIN E.C. 81 MG (ECOTRIN) TAB PO SCH (09:00)
[2021-09-28] MEDS ORDERED: meTOproloL SUCCINATE 50 MG (TOPROL XL) TAB PO ONE ×2 (09:30→21:52)
[2021-09-28] MEDS ORDERED: ASPIRIN 81 MG CHEW (CHILDREN'S ASA) PO ONE (10:00)
[2021-09-28] MEDS: DOCUSATE SODIUM 100 MG (COLACE) CAP PO SCH ×2 (10:08→19:37)
[2021-09-28] MEDS: SENNOSIDES 8.6 MG (SENOKOT) TAB PO SCH ×2 (10:08→19:37)
[2021-09-28] MEDS: guaiFENesin (MUCINEX) 600 MG TAB PO SCH ×2 (10:08→19:37)
[2021-09-28] MEDS ORDERED: IBUP-2473 PO (12:25)
[2021-09-28] MEDS ORDERED: OXYC1TAB15 PO (12:25)
[2021-09-28] MEDS ORDERED: MULT-1136 PO (12:25)
[2021-09-28] MEDS ORDERED: RX-CYCLOBENZAPRINE 10 MG (FLEXERIL) TAB PPK#3 PO PRN (13:00)
[2021-09-28] MEDS ORDERED: IBUPROFEN TABLET 200 MG TAB PO PRN (13:00)
[2021-09-28] MEDS ORDERED: NON-FORMULARY MEDICATION 1 EA EA (Cetirizine HCl (Zyrtec) 10 MG) PO PRN (13:00)
[2021-09-28] MEDS ORDERED: LORATADINE (CLARITIN) 10 MG TAB PO PRN (13:00)
[2021-09-28] MEDS ORDERED: inSUlin ASPART (NovoLOG) 1 UNIT/0.01 ML (CHARGE PER UNIT) SC SCH ×2 (15:00→16:00)
[2021-09-28] MEDS: inSUlin (REGULAR) HUMAN 1 UNIT/0.01 ML (CHARGE PER UNIT) SC SCH ×3 (16:01→20:24)
[2021-09-28] MEDS: cefTRIAXone 1 GM PRE-MIX 50 ML IV NR (19:36)
[2021-09-28] MEDS: AZITHROMYCIN INJECTION 500 MG in NS (IVPB) 250 ML IV SCH (19:36)
[2021-09-28] MEDS: meTOproloL SUCCINATE 50 MG (TOPROL XL) TAB PO SCH (21:56)
[2021-09-29] VITALS (8 sets, daily range): BP systolic 146–181; BP diastolic 65–84
[2021-09-29] MEDS: ENOXAPARIN 300 MG/3 ML (LOVENOX) MULTI-DOSE VIAL SQ SCH ×2 (04:45→18:08)
[2021-09-29] MEDS: guaiFENesin/CODEINE (ROBITUSSIN AC) 10ML UDC PO SCH ×6 (04:45→23:57)
[2021-09-29 05:43] LABS: BASOPHILS % (AUTO) 0 % (0-10); EOSINOPHILS % (AUTO) 0 % (0-10); HEMATOCRIT 44 % (40-54); HEMOGLOBIN 14.7 g/dL (13.3-17.7); LYMPHOCYTES # (AUTO) 0.6 10^3/uL (1.0-4.0); LYMPHOCYTES % (AUTO) 12 % (12-44); MEAN CORPUSCULAR HEMOGLOBIN 29 pg (25-34); MEAN CORPUSCULAR HGB CONC 34 g/dL (32-36); MEAN CORPUSCULAR VOLUME 85 fL (80-99); MEAN PLATELET VOLUME 9.9 fL (9.0-12.2); MONOCYTES # (AUTO) 0.4 10^3/uL (0.0-1.0); MONOCYTES % (AUTO) 8 % (0-12); NEUTROPHILS # (AUTO) 4.1 10^3/uL (1.8-7.8); NEUTROPHILS % (AUTO) 79 % (42-75); PLATELET COUNT 154 10^3/uL (130-400); WHITE BLOOD COUNT 5.2 10^3/uL (4.3-11.0)
[2021-09-29] MEDS: MULTIVIT W/MINERALS TAB (THERAGRAN M) PO SCH (05:55)
--- NOTE | 2021-09-29 05:55 | Progress Note - Hospitalist ---
Subjective HPI/CC On Admission Date Seen by Provider: Sep 29, 2021 Time Seen by Provider: 11:00 CC: Acute respiratory failure due to Covid-19 pneumonia HPI: 51 yr old WM, with known history of meth use who presented to the ER with SOB and found to be hypoxic and Covid-19 was positive. At this current time pt is sleeping off his meth use and we will discontinue telemetry and will continue the protocol. His sugars are high so we will initiate insulin. Subjective/Events-last exam Patient about the same Nurse tells me she increased his oxygen to 5 L now Patient's bowels are moving No pain is reported Checked meds and labs Sugars improved with an immense amount of insulin Review of Systems General: Fatigue Pulmonary: Dyspnea, Cough Objective Exam Vital Signs Vital Signs Date Time Temp Pulse Resp B/P (MAP) Pulse Ox O2 Delivery O2 Flow Rate FiO2 09/30/21 04:05 38.4 95 22 165/86 (112) 88 High Flow N/C 10.00 09/27/21 19:35 21 Capillary Refill : Less Than 3 Seconds General Appearance: No Apparent Distress, WD/WN, Chronically ill, Obese Respiratory: No Accessory Muscle Use, No Respiratory Distress, Decreased Breath Sounds Cardiovascular: Regular Rate, Rhythm Neurologic/Psychiatric: Alert, Oriented x3, No Motor/Sensory Deficits, Normal Mood/Affect Results/Procedures Lab Laboratory Tests 09/29/21 05:35 Patient resulted labs reviewed. Assessment/Plan Assessment and Plan Assess & Plan/Chief Complaint Assessment: Acute hypoxic respiratory failure COVID-19 pneumonia Elevated troponin Diabetes Hypertension Chronic back pain Obesity BMI 45 Meth use Plan: COVID protocol Oxygen Insulin 09/29/2021: Maintain oxygen COVID-19 protocol Appreciate cardiology Diagnosis/Problems Diagnosis/Problems (1) COVID-19 Status: Acute (2) Methamphetamine abuse Status: Acute (3) Chest pain Status: Acute (4) Multiple complaints Status: Acute (5) Insulin dependent diabetes mellitus with complications Status: Chronic ROBIN ROGEL DO Sep 29, 2021 05:55
[2021-09-29] MEDS: inSUlin (REGULAR) HUMAN 1 UNIT/0.01 ML (CHARGE PER UNIT) SC SCH ×4 (05:56→20:17)
[2021-09-29 06:21] LABS: ALBUMIN 2.8 GM/DL (3.2-4.5)
[2021-09-29 06:22] LABS: POTASSIUM 4.2 MMOL/L (3.6-5.0)
[2021-09-29 06:23] LABS: CALCIUM 8.2 MG/DL (8.5-10.1)
[2021-09-29 06:24] LABS: TOTAL PROTEIN 6.2 GM/DL (6.4-8.2)
[2021-09-29 06:26] LABS: BILIRUBIN,TOTAL 0.4 MG/DL (0.1-1.0)
[2021-09-29 06:27] LABS: CREATININE SERUM 0.63 MG/DL (0.60-1.30)
[2021-09-29] MEDS: RT-ALBUTEROL HFA 8.5 GM INHALER IH SCH ×4 (06:56→19:08)
[2021-09-29] MEDS: guaiFENesin (MUCINEX) 600 MG TAB PO SCH ×2 (08:36→20:16)
[2021-09-29] MEDS: SENNOSIDES 8.6 MG (SENOKOT) TAB PO SCH ×2 (08:37→21:00)
[2021-09-29] MEDS: meTOproloL SUCCINATE 50 MG (TOPROL XL) TAB PO SCH (08:37)
[2021-09-29] MEDS: DOCUSATE SODIUM 100 MG (COLACE) CAP PO SCH ×2 (08:37→21:00)
[2021-09-29] MEDS: ASPIRIN 81 MG CHEW (CHILDREN'S ASA) PO SCH (08:37)
[2021-09-29] MEDS: CYCLOBENZAPRINE 10 MG (FLEXERIL) TAB PO SCH (08:37)
[2021-09-29] MEDS ORDERED: NON-FORMULARY MEDICATION 1 EA EA (Multivitamin 1 EACH) PO SCH (09:00)
--- NOTE | 2021-09-29 10:43 | Progress Note - Cardiology ---
Cardiology SOAP Progress Note Subjective: L-sided chest pain persistent for several days, worse with insp and with coughing, sharp, mod in intensity No palp or syncope Shortness of breath with exertion Gen malaise and weakness No n/v/d Objective: I&O/Vital Signs 09/28/21 09/29/21 09/29/21 09/29/21 23:53 01:00 04:43 06:56 Temp 36.5 36.6 Pulse 84 67 73 Resp B/P (MAP) 157/80 (105) 149/78 (101) Pulse Ox 94 93 93 O2 Delivery Nasal Cannula Nasal Cannula Nasal Cannula O2 Flow Rate 3.00 3.00 3.00 09/29/21 09/29/21 09/29/21 08:00 08:00 09:02 Temp 36.8 36.8 Pulse 81 81 Resp B/P (MAP) 146/67 (93) 146/67 (93) Pulse Ox 88 91 88 O2 Delivery Nasal Cannula Nasal Cannula Nasal Cannula O2 Flow Rate 5.00 5.00 5.00 09/29/21 00:00 Intake Total 2125 ml Output Total 1550 ml Balance 575 ml Weight (Pounds): 389 Weight (Ounces): 0.0 Weight (Calculated Kilograms): 176.315767 Constitutional: AAO x 3, well-developed, well-nourished Respiratory: No accessory muscle use, No respiratory distress; chest expansion is symmetric, chest is bilaterally symmetric, other (coarse breath sounds throughout) Cardiovascular: regular rate-rhythm; No JVD; S1 and S2 Gastrointestional: No tender; soft, round, audible bowel sounds Extremities: no lower extremity edema bilateral Neurologic/Psychiatric: grossly intact (moves all extremities) Skin: other (approx quarter sized area of dark pigmentation, tender to palpation on bottom of left foot; second toe amputation on left foot) Results/Procedures: Labs Laboratory Tests 09/28/21 11:08: Glucometer 371H 09/28/21 16:11: Glucometer 419*H 09/28/21 20:15: Glucometer 431*H 09/29/21 04:57: Glucometer 290H 09/29/21 05:35: White Blood Count 5.2, Red Blood Count 5.14, Hemoglobin 14.7, Hematocrit 44, Mean Corpuscular Volume 85, Mean Corpuscular Hemoglobin 29, Mean Corpuscular Hem oglobin Concent 34, Red Cell Distribution Width 13.2, Platelet Count 154, Mean Platelet Volume 9.9, Immature Granulocyte % (Auto) 1, Neutrophils (%) (Auto) 79H , Lymphocytes (%) (Auto) 12, Monocytes (%) (Auto) 8, Eosinophils (%) (Auto) 0, Basophils (%) (Auto) 0, Neutrophils # (Auto) 4.1, Lymphocytes # (Auto) 0.6L, Monocytes # (Auto) 0.4, Eosinophils # (Auto) 0.0, Basophils # (Auto) 0.0, Immature Granulocyte # (Auto) 0.1, Sodium Level 136, Potassium Level 4.2, Chloride Level 102, Carbon Dioxide Level 24, Anion Gap 10, Blood Urea Nitrogen 16, Creatinine 0.63, Estimat Glomerular Filtration Rate 115, BUN/Creatinine Ratio 25, Glucose Level 301H, Calcium Level 8.2L, Corrected Calcium 9.2, Total Bilirubin 0.4, Aspartate Amino Transf (AST/SGOT) 31, Alanine Aminotransferase (ALT/SGPT) 29, Alkaline Phosphatase 63, Total Protein 6.2L, Albumin 2.8L Laboratory Tests 09/27/21 14:20 09/28/21 06:11 09/29/21 05:35 A/P: Assessment: Chest pain, pleuritic, likely related to COVID pneumonia - Cardiac cath of 02-24-[address] Davis showed normal coronary arteries - Echocardiogram of 01-21-[address] Cornell showed mild LVH; LVEF 60% - reports h/o cardiac cath at [facility] several years ago with no intervention Mildly elevated troponin - Type 2 SC secondary to hypoxia due to COVID pneumonia COVID (+) pneumonia - management per medical services H/O left foog 2nd toe amputation - d/t osteomylitis in 2019 DM 2 - non-compliant with tx HTN - non-compliant with treatment H/O methamphetamine abuse - tested positive this admission - cessation advised Obese GERD Family h/o CAD - Father and Brother Plan: Repeat echo Advise MPI, given cor risk factors and nonspecific symptoms. Can be undertaken after he has recovered from COVID-19 Management of COVID pneumonia is per medical services Continue and adjust as needed his bp regimen Have advised immediate cessation of methamphetamines Monitor lab closely Replace electrolytes as indicated CALLY MORALES MD FACP FAC [facility] Sep 29, 2021 10:43
[2021-09-29] MEDS: oxyCODONE/APAP 7.5-325 MG (PERCOCET 7.5) TABLET PO PRN (16:13)
[2021-09-29] MEDS: cefTRIAXone 1 GM PRE-MIX 50 ML IV NR (18:08)
[2021-09-29] MEDS: AZITHROMYCIN INJECTION 500 MG in NS (IVPB) 250 ML IV SCH (18:09)
[2021-09-29] MEDS: RT-ALBUTEROL HFA 8.5 GM INHALER IH PRN (21:59)
[2021-09-30] MEDS: RT-ALBUTEROL HFA 8.5 GM INHALER IH PRN ×2 (02:36→04:00)
[2021-09-30] MEDS: oxyCODONE/APAP 7.5-325 MG (PERCOCET 7.5) TABLET PO PRN (03:57)
[2021-09-30] MEDS: ENOXAPARIN 300 MG/3 ML (LOVENOX) MULTI-DOSE VIAL SQ SCH (03:57)
[2021-09-30 04:05] VITALS: BP 165/86
[2021-09-30] MEDS: guaiFENesin/CODEINE (ROBITUSSIN AC) 10ML UDC PO SCH ×3 (04:30→11:38)
[2021-09-30 05:59] LABS: BASOPHILS % (AUTO) 0 % (0-10); EOSINOPHILS % (AUTO) 0 % (0-10); HEMATOCRIT 43 % (40-54); HEMOGLOBIN 14.1 g/dL (13.3-17.7); LYMPHOCYTES # (AUTO) 0.8 10^3/uL (1.0-4.0); LYMPHOCYTES % (AUTO) 14 % (12-44); MEAN CORPUSCULAR HEMOGLOBIN 28 pg (25-34); MEAN CORPUSCULAR HGB CONC 33 g/dL (32-36); MEAN CORPUSCULAR VOLUME 86 fL (80-99); MEAN PLATELET VOLUME 9.7 fL (9.0-12.2); MONOCYTES # (AUTO) 0.3 10^3/uL (0.0-1.0); MONOCYTES % (AUTO) 5 % (0-12); NEUTROPHILS # (AUTO) 4.8 10^3/uL (1.8-7.8); NEUTROPHILS % (AUTO) 80 % (42-75); PLATELET COUNT 162 10^3/uL (130-400)
[2021-09-30] MEDS: inSUlin (REGULAR) HUMAN 1 UNIT/0.01 ML (CHARGE PER UNIT) SC SCH ×3 (06:00→11:38)
[2021-09-30] MEDS: MULTIVIT W/MINERALS TAB (THERAGRAN M) PO SCH ×2 (06:02→07:50)
[2021-09-30 06:18] LABS: ALBUMIN 2.6 GM/DL (3.2-4.5); BILIRUBIN,TOTAL 0.5 MG/DL (0.1-1.0); CALCIUM 7.9 MG/DL (8.5-10.1); CREATININE SERUM 0.64 MG/DL (0.60-1.30); POTASSIUM 3.2 MMOL/L (3.6-5.0); TOTAL PROTEIN 5.8 GM/DL (6.4-8.2)
[2021-09-30] MEDS: RT-ALBUTEROL HFA 8.5 GM INHALER IH SCH ×3 (06:19→14:44)
[2021-09-30 06:21] LABS: ABG BASE EXCESS 4.7 MMOL/L (-2.5-2.5); ABG OXYGEN SATURATION 96 % (94-100); ABG PCO2 42 MMHG (35-45); ABG PH 7.45 (7.37-7.43); ABG PO2 75 MMHG (79-93)
[2021-09-30 06:25] LABS: ALLENS TEST YES-POS; INSPIRED O2 100%; PATIENT TEMP 36.6; VENTILATOR NO
[2021-09-30] MEDS ORDERED: inSUlin (REGULAR) HUMAN 1 UNIT/0.01 ML (CHARGE PER UNIT) SC PRN (06:45)
--- NOTE | 2021-09-30 06:45 | Progress Note - Hospitalist ---
Subjective HPI/CC On Admission Date Seen by Provider: Sep 30, 2021 Time Seen by Provider: 10:00 CC: Acute respiratory failure due to Covid-19 pneumonia HPI: 51 yr old WM, with known history of meth use who presented to the ER with SOB and found to be hypoxic and Covid-19 was positive. At this current time pt is sleeping off his meth use and we will discontinue telemetry and will continue the protocol. His sugars are high so we will initiate insulin. Subjective/Events-last exam Pt doing worse BiPAP is at 90% Gave Actemra after I spoke to him about the risk/benefits Do not intubate at this current time so I did put that on the list of orders Review of Systems Pulmonary: Dyspnea Objective Exam Vital Signs Vital Signs Date Time Temp Pulse Resp B/P (MAP) Pulse Ox O2 Delivery O2 Flow Rate FiO2 09/30/21 18:57 09/30/21 16:44 35.6 75 24 90 Vapotherm 40.00 100.00 09/30/21 08:00 100 Capillary Refill : Less Than 3 Seconds General Appearance: Anxious, Chronically ill, Mild Distress, Obese Respiratory: No Accessory Muscle Use, No Respiratory Distress, Decreased Breath Sounds Cardiovascular: Regular Rate, Rhythm Neurologic/Psychiatric: Alert, Oriented x3 Results/Procedures Lab Patient resulted labs reviewed. Assessment/Plan Assessment and Plan Assess & Plan/Chief Complaint Assessment: Acute hypoxic respiratory failure requiring BiPAP 100% today COVID-19 pneumonia Elevated troponin Diabetes Hypertension Chronic back pain Obesity BMI 45 Meth use Plan: COVID protocol Oxygen Insulin 09/29/2021: Maintain oxygen COVID-19 protocol Appreciate cardiology 09/30/2021: BiPAP DO NOT INTUBATE as requested Diagnosis/Problems Diagnosis/Problems (1) COVID-19 Status: Acute (2) Methamphetamine abuse Status: Acute (3) Chest pain Status: Acute (4) Multiple complaints Status: Acute (5) Insulin dependent diabetes mellitus with complications Status: Chronic ROBIN ROGEL DO Sep 30, 2021 06:45
[2021-09-30] MEDS: guaiFENesin (MUCINEX) 600 MG TAB PO SCH (07:50)
[2021-09-30] MEDS: DOCUSATE SODIUM 100 MG (COLACE) CAP PO SCH (07:50)
[2021-09-30] MEDS: ASPIRIN 81 MG CHEW (CHILDREN'S ASA) PO SCH (07:51)
[2021-09-30] MEDS: CYCLOBENZAPRINE 10 MG (FLEXERIL) TAB PO SCH (07:51)
[2021-09-30] MEDS: SENNOSIDES 8.6 MG (SENOKOT) TAB PO SCH (07:51)
[2021-09-30] MEDS: meTOproloL SUCCINATE 50 MG (TOPROL XL) TAB PO SCH (07:51)
[2021-09-30 07:52] VITALS: BP 139/80
--- NOTE | 2021-09-30 08:17 | Diagnostic Imaging Report ---
INDICATION: Covid pneumonia, follow-up. TECHNIQUE: Single view chest 6:39 AM. CORRELATION STUDY: 09/27/2021 FINDINGS: Extensive 5 lobe pulmonary infiltrate-like opacities again demonstrated right greater than left. Given difference technique, overall appears perhaps slightly increased from prior. Heart size remains enlarged and mediastinum prominent. IMPRESSION: 1. Extensive, 5 lobe pulmonary infiltrate is again demonstrated right greater than left. Overall perhaps slightly increased in severity from prior. Dictated by: Dictated on workstation # [id number]
[2021-09-30] MEDS ORDERED: TOCILIZUMAB INJECTION (NON-FOR 800 MG in NS (IVPB) 60 ML IV NR (11:00)
--- NOTE | 2021-09-30 11:24 | Progress Note - Cardiology ---
Cardiology SOAP Progress Note Subjective: To limit exposure to COVID-19, I did not go into the patient's room today. I examined him yesterday. Today I reviewed VS and hospital notes and labs Objective: I&O/Vital Signs 09/29/21 09/30/21 09/30/21 09/30/21 23:53 02:36 04:04 04:05 Temp 36.7 38.4 38.4 Pulse 86 95 Resp 20 22 B/P (MAP) 162/74 (103) 165/86 (112) Pulse Ox 91 92 88 O2 Delivery High Flow N/C High Flow N/C High Flow N/C O2 Flow Rate 6.00 6.00 10.00 09/30/21 09/30/21 09/30/21 09/30/21 06:20 06:30 07:52 08:00 Temp 36.6 36.6 Pulse 89 83 Resp 20 B/P (MAP) 139/80 (99) Pulse Ox 90 94 92 91 O2 Delivery Vapotherm Vapotherm Vapotherm Vapotherm O2 Flow Rate 40.00 40.00 40.00 40.00 100.00 100.00 FiO2 100 100 09/30/21 09/30/21 09/30/21 09/30/21 08:50 09:00 09:01 10:57 Pulse 84 82 Resp 32 35 B/P (MAP) Pulse Ox 92 95 94 O2 Delivery NIV Bilevel NIV Bilevel O2 Flow Rate 100.00 100.00 100.00 100.00 09/30/21 09/30/21 11:03 11:08 Pulse 90 B/P (MAP) Pulse Ox 93 96 O2 Delivery NIV Bilevel O2 Flow Rate 90.00 90.00 09/30/21 00:00 Intake Total 1330 ml Balance 1330 ml Weight (Pounds): 389 Weight (Ounces): 0.0 Weight (Calculated Kilograms): [id number] Results/Procedures: Labs Laboratory Tests 09/29/21 16:33: Glucometer 273H 09/29/21 20:13: Glucometer 236H 09/30/21 05:10: White Blood Count 6.0, Red Blood Count 4.96, Hemoglobin 14.1, Hematocrit 43, Mean Corpuscular Volume 86, Mean Corpuscular Hemoglobin 28, Mean Corpuscular Hemoglobin Concent 33, Red Cell Distribution Width 13.4, Platelet Count 162, Mean Platelet Volume 9.7, Immature Granulocyte % (Auto) 1, Neutrophils (%) (Auto) 80H, Lymphocytes (%) (Auto) 14, Monocytes (%) (Auto) 5, Eosinophils (%) (Auto) 0, Basophils (%) (Auto) 0, Neutrophils # (Auto) 4.8, Lymphocytes # (Auto) 0.8L, Monocytes # (Auto) 0.3, Eosinophils # (Auto) 0.0, Basophils # (Auto) 0.0, Immature Granulocyte # (Auto) 0.1, Sodium Level 140, Potassium Level 3.2L, Chloride Level 104, Carbon Dioxide Level 26, Anion Gap 10, Blood Urea Nitrogen 16, Creatinine 0.64, Estimat Glomerular Filtration Rate 115, BUN/Creatinine Ratio 25, Glucose Level 127H, Calcium Level 7.9L, Corrected Calcium 9.0, Total Bilirubin 0.5, Aspartate Amino Transf (AST/SGOT) 47H, Alanine Aminotransferase (ALT/SGPT) 33, Alkaline Phosphatase 63, Total Protein 5.8L, Albumin 2.6L 09/30/21 05:54: Glucometer 123H 09/30/21 06:15: Blood Gas Puncture Site RIGHT RADIAL, Blood Gas Patient Temperature 36.6, Arterial Blood pH 7.45H, Arterial Blood Partial Pressure CO2 42, Arterial Blood Partial Pressure O2 75L, Arterial Blood HCO3 29H, Arterial Blood Total CO2 30.0, Arterial Blood Oxygen Saturation 96, Arterial Blood Base Excess 4.7H, Jonnathan Test YES-POS, Blood Gas Ventilator Setting NO, Blood Gas Inspired Oxygen 100% Laboratory Tests 09/29/21 05:35 09/30/21 05:10 A/P: Assessment: Chest pain, pleuritic, likely related to COVID pneumonia - Cardiac cath of 02-24-[address] Davis showed normal coronary arteries - Echocardiogram of 01-21-[address] 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
[2021-09-30 11:45] VITALS: BP 137/73
[2021-09-30] MEDS ORDERED: KCL 20 MEQ TAB (K-DUR) PO NR (11:45)
[2021-09-30 16:44] VITALS: BP 164/75
[2021-09-30] MEDS ORDERED: RT-ALBUTEROL HFA 8.5 GM INHALER IH SCH (18:00)
--- NOTE | 2021-09-30 18:23 | Discharge Summary ---
Discharge Summary Hospital Course Was the Problem List Reviewed?: Yes Problems/Dx: (1) COVID-19 Status: Acute (2) Methamphetamine abuse Status: Acute (3) Chest pain Status: Acute (4) Multiple complaints Status: Acute (5) Insulin dependent diabetes mellitus with complications Status: Chronic Hospital Course Date of Admission: Sep 27, 2021 at 16:21 Admission Diagnosis : Family Physician/Provider: Anju Thao MD Date of Discharge: 09/30/21 Discharge Diagnosis: Acute hypoxic respiratory failure, COVID-19 pneumonia, diabetes [id number], meth use Hospital Course: Patient was admitted and placed on oxygen supplementation and Decadron protocol for COVID-19 pneumonia. Patient progressed and required BiPAP at 100% but probably he left AMA with O2 sat of 64% running through the hospital stating " they are killing me here I am going to [place]" Labs and Pending Lab Test: Laboratory Tests 09/29/21 20:13: Glucometer 236H 09/30/21 05:10: White Blood Count 6.0, Red Blood Count 4.96, Hemoglobin 14.1, Hematocrit 43, Mean Corpuscular Volume 86, Mean Corpuscular Hemoglobin 28, Mean Corpuscular Hemoglobin Concent 33, Red Cell Distribution Width 13.4, Platelet Count 162, Mean Platelet Volume 9.7, Immature Granulocyte % (Auto) 1, Neutrophils (%) (Auto) 80H, Lymphocytes (%) (Auto) 14, Monocytes (%) (Auto) 5, Eosinophils (%) (Auto) 0, Basophils (%) (Auto) 0, Neutrophils # (Auto) 4.8, Lymphocytes # (Auto) 0.8L, Monocytes # (Auto) 0.3, Eosinophils # (Auto) 0.0, Basophils # (Auto) 0.0, Immature Granulocyte # (Auto) 0.1, Sodium Level 140, Potassium Level 3.2L, Chloride Level 104, Carbon Dioxide Level 26, Anion Gap 10, Blood Urea Nitrogen 16, Creatinine 0.64, Estimat Glomerular Filtration Rate 115, BUN/Creatinine Ratio 25, Glucose Level 127H, Calcium Level 7.9L, Corrected Calcium 9.0, Total Bilirubin 0.5, Aspartate Amino Transf (AST/SGOT) 47H, Alanine Aminotransferase (ALT/SGPT) 33, Alkaline Phosphatase 63, Total Protein 5.8L, Albumin 2.6L 09/30/21 05:54: Glucometer 123H 09/30/21 06:15: Blood Gas Puncture Site RIGHT RADIAL, Blood Gas Patient Temperature 36.6, Arterial Blood pH 7.45H, Arterial Blood Partial Pressure CO2 42, Arterial Blood Partial Pressure O2 75L, Arterial Blood HCO3 29H, Arterial Blood Total CO2 30.0, Arterial Blood Oxygen Saturation 96, Arterial Blood Base Excess 4.7H, Jonnathan Test YES-POS, Blood Gas Ventilator Setting NO, Blood Gas Inspired Oxygen 100% 09/30/21 11:34: Glucometer 211H 09/30/21 16:49: Glucometer 273H Home Meds Active Reported Multivitamin 1 Each Tablet 1 Each PO DAILY Ibuprofen 200 Mg Tablet 400-600 Mg PO Q8H PRN Oxycodon-Acetaminophen 7.5-325 (Oxycodone HCl/Acetaminophen) 1 Each Tablet 1 Ea PO Q6H PRN Zyrtec (Cetirizine HCl) 10 Mg Tablet 10 Mg PO DAILY PRN Cyclobenzaprine HCl 10 Mg Tablet 10 Mg PO DAILY PRN Assessment/Pt Instructions Left AMA Discharge Planning: <30 minutes discharge planning Discharge Physical Examination Vital Signs Vital Signs Date Time Temp Pulse Resp B/P (MAP) Pulse Ox O2 Delivery O2 Flow Rate FiO2 09/30/21 16:44 35.6 75 24 164/75 (104) 90 Vapotherm 40.00 100.00 09/30/21 08:00 100 General Appearance: Chronically ill, Obese Allergies: Coded Allergies: No Known Drug Allergies (Unverified , 10/12/17) Discharge Summary Date of Admission Sep 27, 2021 at 16:21 Date of Discharge Admission Diagnosis Assessment: Acute hypoxic respiratory failure COVID-19 pneumonia Diabetes Hypertension Chronic back pain Obesity BMI 45 Meth use Plan: COVID protocol Oxygen Insulin Discharge Diagnosis Assessment: Acute hypoxic respiratory failure COVID-19 pneumonia Elevated troponin Diabetes Hypertension Chronic back pain Obesity BMI 45 Meth use Plan: COVID protocol Oxygen Insulin 09/29/2021: Maintain oxygen COVID-19 protocol Appreciate cardiology (1) COVID-19 Status: Acute (2) Methamphetamine abuse Status: Acute (3) Chest pain Status: Acute (4) Multiple complaints Status: Acute (5) Insulin dependent diabetes mellitus with complications Status: Chronic ROBIN ROGEL DO Sep 30, 2021 18:23
[2021-09-30] MEDS ORDERED: ACYCLOVIR 400 MG TABLET (ZOVIRAX) PO SCH (21:00)
== END 2021-09-30 18:20 | disposition left against medical advice (07) | DRG 177 ==
LOC: EDUNIT# 14:17 → ER 14:19 → 4TH 16:21
PROVIDERS: ADMIT Internal Medicine; ATTEND Internal Medicine
PROC: 5A09357 Assistance with Respiratory Ventilation, Less than 24 Consecutive Hours, Continuous Positive Airway Pressure (ICD-10-PCS; principal; 2021-09-30)
DX: U07.1 COVID-19 (principal); J12.82 Pneumonia due to coronavirus disease 2019; J96.01 Acute respiratory failure with hypoxia; I21.A1 Myocardial infarction type 2; Z68.42 Body mass index [BMI] 45.0-49.9, adult; I10 Essential (primary) hypertension; K21.9 Gastro-esophageal reflux disease without esophagitis; M19.90 Unspecified osteoarthritis, unspecified site; G89.29 Other chronic pain; F32.A Depression, unspecified; F15.10 Other stimulant abuse, uncomplicated; Z79.4 Long term (current) use of insulin; Z79.84 Long term (current) use of oral hypoglycemic drugs; Z79.899 Other long term (current) drug therapy; Z87.891 Personal history of nicotine dependence; E66.9 Obesity, unspecified; M54.9 Dorsalgia, unspecified; E11.65 Type 2 diabetes mellitus with hyperglycemia; Z89.422 Acquired absence of other left toe(s); Z82.49 Family history of ischemic heart disease and other diseases of the circulatory system
CPT/HCPCS: 36410; 36415; 36600; 71045; 71275; 76937; 80053; 80306; 82805; 82947; 83036; 84145; 84484; 85025; 85379; 85384; 85610; 85730; 86141; 87636; 93041; 93308; 94640; 94660; 94664; 94760